=== PATIENT | female | born 1940 | race Caucasian/White ===

== ENCOUNTER 2019-04-23 15:23 | Inpatient (IN) ==
--- NOTE | 2019-04-23 15:41 | CT Scan Report ---
CT head/brain wo con CLINICAL HISTORY: 78 years-old Female with Stroke Alert. Acute strokelike symptoms TECHNIQUE: Multiple axial CT images of the head were obtained without contrast. A dose lowering tech nique was utilized adhering to the principles of ALARA. CT DOSE: 537.48 mGy.cm COMPARISON: PET CT 03/11/2019. FINDINGS: No acute intracranial hemorrhage, midline shift, intracranial mass, hydrocephalus, territorial ischem ia or abnormal extra-axial collection. Mild age-related involutional changes. Encephalomalacia of the right parietal lobe from remote infarct. Cerebral vascular calcifications are noted. Patchy white ma tter hypodensities suggest mild chronic microvascular ischemic disease. The calvarium is intact. The paranasal sinuses, mastoid air cells, and middle ear cavities are clear . IMPRESSION: No acute intracranial abnormality. ACT 112: Negative or not required by law. The above report was generated using voice recognition software. It may contain grammatical, syntax o r spelling errors. Electronically signed by: Josh Walker M.D. 04/23/2019 3:40 PM
[2019-04-23 16:06] LABS: iSTAT Hemoglobin 13.6 g/dl (12.0-16.0); iSTAT Ionized Calcium 1.12 mmol/l (1.12-1.32); iSTAT Potassium 4.5 mEq/L (3.3-5.0)
[2019-04-23] MEDS ORDERED: ASPIRIN CHEW 324 MG PO STA (16:09)
[2019-04-23 16:15] LABS: Hematocrit (blood only) 41.1 % (37-47); Hemoglobin 13.5 g/dL (12.0-16.0); Mean Corpuscular Hemoglobin 32.2 pg (25-34); Mean Corpuscular Hgb Conc 32.8 g/dL (32-36); Mean Corpuscular Volume 98.1 fL (80-100); Mean Platelet Volume 10.9 fL (7.4-10.4); Platelet Count 207 K/uL (130-400); RDW Coefficient of Variation 14.1 % (11.5-14.5); RDW Standard Deviation 50.3 fL (36.4-46.3); Red Blood Count 4.19 M/uL (4.2-5.4); White Blood Count 4.95 K/uL (4.8-10.8)
[2019-04-23 16:21] LABS: Partial Thromboplastin Ratio 0.9; Partial Thromboplastin Time 23.6 Seconds (21.0-31.0); Prothrombin Time 10.3 Seconds (9.0-12.0)
[2019-04-23 16:24] LABS: Alanine Aminotransferase 18 U/L (12-78); Albumin Level 3.2 gm/dl (3.4-5.0); BUN Creatinine Ratio 18.1 (10-20); Blood Urea Nitrogen 18 mg/dl (7-18); Calcium 8.7 mg/dl (8.5-10.1); Carbon Dioxide 32 mmol/L (21-32); Chloride 108 mmol/L (98-107); Est GFR (African American) 62.9; Est GFR (Non-African American) 54.3; Glucose 99 mg/dl (70-99); Sodium 142 mmol/L (136-145)
--- NOTE | 2019-04-23 16:35 | XRay Report ---
SINGLE VIEW CHEST CLINICAL HISTORY: Strokelike symptoms. FINDINGS: An AP, portable, upright chest radiograph is correlated with chest CT dated 02/14/2019. The examination is degraded by portable technique and patient rotation. The heart is enlarged noting ath erosclerotic calcification of the thoracic aorta. The pulmonary vasculature is noncongested. Atelecta sis is noted at the lung bases. The lungs and pleural spaces are otherwise clear. No pneumothorax is seen. The skeletal structures are osteopenic. The bony thorax is grossly intact. IMPRESSION: Cardiomegaly with no acute cardiopulmonary abnormality. ACT 112: Negative or not required by law. Electronically signed by: Sunil Guardado M.D. 04/23/2019 4:33 PM
[2019-04-23 16:37] LABS: Albumin Globulin Ratio 0.9 (0.9-2); Alkaline Phosphatase 55 U/L (45-117); Bilirubin,Total 0.5 mg/dl (0.2-1); Globulin 3.5 gm/dl (2.5-4.0); Total Protein 6.7 gm/dl (6.4-8.2)
--- NOTE | 2019-04-23 17:03 | History & Physical Report ---
Date of Service April 23, 2019 Assessment & Plan (1) TIA (transient ischemic attack): Mrs. 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 In ED stroke alert was called. Due to improvement of symptoms TPA was contraindicated. She remained hemodynamically stable and blood pressure has been well controlled. CBC, CMP, mag, PT/INR relatively unremarkable. CT head w/o acute abnormality, but did reveal right parietal encephalomalacia from remote infarct. She received ASA 325 while in ED. admit to PCU MRI brain w/o contrast obtain echocardiogram carotid Doppler b/l fasting lipid panel, a1c PT/OT/ST change ASA to 81mg daily, Add Plavix 75mg daily and Atorvastatin 40mg HS pt recently had ziopatch as outpt 02/27/19 revealed atrial tachycardia - may need prolonged event recorder to r/o afib consult neurology - discussed with Dr. Gallardo (2) Follicular lymphoma grade II: recent dx, s/p surgical resection Follows Dr. Phillips for oncology and Dr. Porter for radiation oncology Current staging work up in process, had EUS last week of pancreatic lesion plan to receive XRT to L parotid no acute issue at time (3) Atrial tachycardia: Follows Dr. Schafer cardiology Due to EKG revealing ventricular ectopic breats 10/2018 had event monitor 02/27/19 which demonstrated freq ventricular ectopy and short runs of atrial tachycardia continue metoprolol monitor on tele for any further atrial arrythmia She is scheduled for stress echo 04/26/19 (4) DVT prophylaxis: SCD/TEDS Disposition: admit to PCU, case management consulted Follow up: PCP Dr. Reza upon discharge along with appropriate neurology follow up Patient was seen and examined in collaboration with Dr. Rivera, please see addendum History of Present Illness Chief Complaint: Slurred speech and L facial droop x 30-60 min prior to arrival. Primary Care Provider: Anastasia Reza DO Mrs. 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 Daughter is at bedside. She currently lives with her daughter in [place] during the winter, but lives alone in [facility] in the summer. Somewhere between 2 and 3 PM patient developed slurred and garbled speech and left facial droop. "I thought my speech sounded funny." Daughter denies any confusion, weakness of upper or lower extremities or seizure-like activity. Patient recalls all events. Symptoms lasted between 30 to 60 minutes, prior to resolving. Daughter feels dysarthria is still mildly present. She denies any headache, lightheadedness, dizziness, change in vision, change in hearing, diplopia, chest pain, shortness breath, palpitations. She denies any recent illness. She denies fever, chills, sweats, nausea, vomiting, abdominal pain, diarrhea, change or bowel or urinary habits. Denies loss of bowel or bladder habits during event. Prior to today appetite has been normal. She does admit to approximately 30 pound weight loss over the past 6 months, intentional. She do es have remote history of CVA in 2009, "I would just called mini stroke." She states at that time she developed inability to move 3 fingers on her right hand that lasted 36 hours before resolving. Since that time she has been on ASA daily. Currently taking 325 mg also secondary to arthritis. Of significance patient with recent diagnosis of enlarging mass to her left parotid area in which she ultimately underwent surgical resection and pathology returned with low-grade follicular lymphoma. She has been following with oncologist Dr. Schaefer. She is currently undergoing staging. On imaging she was also found to have pancreatic mass and last week underwent a EUS at [facility], results pending. She has seen Dr. Porter with radiation oncology and plan is to undergo radiation to left parotid once final staging obtained. Currently she has not received any treatment. She also notes that she was to get a stress echo done this coming Monday. In ED stroke alert was called. Due to improvement of symptoms TPA was contraindicated. She remained hemodynamically stable and blood pressure has been well controlled. CBC, CMP, mag, PT/INR relatively unremarkable. She received ASA 325 while in ED. Discussed case with ED Provider Dr. Byrne. Reviewed outpt records in [facility]. Allergies Allergy/AdvReac Type Severity Reaction Status Date / Time chlorpheniramine AdvReac Mild "Antsy Verified 04/23/19 16:26 [From Chlor-Trimeton] Feeling" Home Medications Home Medications Medication Instructions Recorded Confirmed Type aspirin 325 mg PO DAILY 04/23/19 04/23/19 History calcium carbonate-vitamin D3 1 tab PO DAILY 04/23/19 04/23/19 History metoprolol succinate 25 mg PO DAILY 04/23/19 04/23/19 History multivitamin 1 tab PO DAILY 04/23/19 04/23/19 History vitamin B complex [B-Complex] 1 tab PO DAILY 04/23/19 04/23/19 History Past Med/Surg History Medical History (Updated 04/23/19 @ 17:13 by Andree Macias PA-C) Arthritis Atrial tachycardia 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 Mother , Passed age 83 of Alzheimers Disease No problems noted. Brother No problems noted. Sister ALL (acute lymphoblastic leukemia), Onset Age: 66 Now in remission Daughter No problems noted. Son No problems noted. 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 Other Information That Helps Us Care for You: No Feels Safe at Home: Yes Safety Concerns: Feels Safe At This Time Smoking Status: Never smoker Do You Dip or Chew Tobacco: No ; Second Hand Exposure: No ; Tobacco Cessation Education Requested by Patient: No Hx Alcohol Use: No Hx Substance Use: No Childhood Exposure to Second-Hand Smoke: Yes (Father Smoked in Home ) caffeine: Yes (4 cups of coffee/day ) Dental Care, Regularly: Yes Review of Systems Review of Systems: All systems reviewed & are unremarkable except as noted in HPI & below Physical Exam Physical Exam: Constitutional: WD/WN, elderly, F, appears age, vitals as above, NAD, sitting up in bed, pleasant, conversing easily Head: Normocephalic, Atraumatic Eyes: PERRL, conjunctivae normal, anicteric sclerae ENMT: external ear and nose normal, oropharynx normal Neck: trachea midline, no thyromegaly normal visual inspection Respiratory: normal respiratory effort, lungs clear to auscultation, no wheeze, rales, rhonchi. Normal insp/exp effort, no accessory muscle use Cardiovascular: RRR, with occasional ectopy noted on auscultation, 1/6 MITCH noted RUSB, trace pretibial edema Vessels: no JVD or carotid bruit Chest: normal inspection of chest Abdomen: normal bowel sounds, soft, nontender, no hepatosplenomegaly Musculoskeletal: no cyanosis or clubbing, extremities motor strength 5/5 Skin: no rashes, warm and dry normal turgor Neurologic: PERRL, EOMI, accommodation nl, no face palsy, very mild dysarthria, facial droop not present. CN's II-XI intact bilaterally and moves all extremities Psychiatric: A+Ox3, euthymic affect Lymphatic: no cervical or axillary lymphadenopathy : deferred Results & Data Vital Signs (Past 12 Hours) Vital Signs Temp Pulse Pulse Resp BP BP Pulse Ox 04/23/19 16:58 64 21 148/83 H 96 04/23/19 16:01 73 95 04/23/19 15:59 136/86 04/23/19 15:50 73 97 04/23/19 15:44 74 97 04/23/19 15:41 68 153/96 H 93 04/23/19 15:25 36.6 C 73 20 141/78 H 95 Laboratory Results Short CBC 04/23/19 Range/Units 15:46 WBC 4.95 (4.8-10.8) K/uL Hgb 13.5 (12.0-16.0) g/dL Hct 41.1 (37-47) % Plt Count 207 (130-400) K/uL BMP 04/23/19 15:46 Sodium 142 Potassium Chloride 108 H Carbon Dioxide 32 BUN 18 Creatinine 1.00 Glucose 99 Calcium 8.7 Liver Function 04/23/19 Range/Units 15:46 Total Bilirubin 0.5 (0.2-1) mg/dl AST (15-37) U/L ALT 18 (12-78) U/L Alkaline Phosphatase 55 (45-117) U/L Albumin 3.2 L (3.4-5.0) gm/dl Diagnostic Findings CXR: IMPRESSION: Cardiomegaly with no acute cardiopulmonary abnormality. Head CT: No acute intracranial hemorrhage, midline shift, intracranial mass, hydrocephalus, territorial ischemia or abnormal extra-axial collection. Mild age-related involutional changes. Encephalomalacia of the right parietal lobe from remote infarct. Cerebral vascular calcifications are noted. Patchy white matter hypodensities suggest mild chronic microvascular ischemic disease. The calvarium is intact. The paranasal sinuses, mastoid air cells, and middle ear cavities are clear. IMPRESSION: No acute intracranial abnormality. Medications Administered Discontinued Medications Aspirin (Aspirin) 324 mg PO NOW STA Stop: 04/23/19 16:10 Last Admin: 04/23/19 16:20 Dose: 324 mg Documented by: [id number] ECG Rate (beats per minute): 66 Rhythm: normal sinus Findings: + PAC Code Status & VTE Plan Code Status Full Code VTE Prophylaxis Plan VTE Prophylaxis will be ordered: Yes Supervising Physician Co-Signing Physician Notes Attending Addendum: delayed entry date of service 04/23/19 care coordinated with GLENNY Hogan please refer to her notes for full details, I agree with her notes with exceptions as noted below patient seen and examined, records reviewed by myself as well on exam, patient seen sitting up in bed, reading a book states speech has improved much since admission denies other focal neuro symptoms no chest pain, palpitaions, dizziness no other symptoms VS noted and reviewed oriented x 3, not in distress, speaks in sentences with no effort nor accessory muscle use normal rate, regular rhythm, no murmurs clear breath sounds bilaterally non distended, soft, nontender no bipedal edema, erythema, warmth mild dysarthria, no other focal neuro deficits noted Brain MRI: IMPRESSION: 1. There are small foci of restricted diffusion identified within the right posterior frontal cortex and white matter consistent with acute to subacute ischemia. 2. No additional foci of acute ischemia are identified. 3. There is no hemorrhage or mass effect. 4. Numerous chronic infarcts as above. Carotid Doppler: IMPRESSION: 1. There is no sonographic evidence of hemodynamically significant stenosis in the right or left carotid arterial system. 2. Antegrade flow is shown in the vertebral arteries. 3. There are 2 enlarged left cervical chain lymph nodes identified, likely corresponding to the patient's known history of lymphoma. ASSESSMENT AND PLAN ACUTE CVA, right posterior frontal cortex and white matter History of TIAs patient was taking aspirin 325mg po daily until 2 weeks ago when it was held due to procedures for lymphoma echo ordered either restart aspirin 325mg po daily or reduce to 81mg daily and add Plavix Neurologist consulted Speech therapy consulted- Dysphagia reported by RN History of Atrial Tacychardia continue Metoprolol may need Zio patch monitoring to r/o underlying a fib other diagnoses and plan of care as per [] Dima Rivera MD (1) Follicular lymphoma grade II Lymphoma site: neck Qualified Code(s): C82.11 - Follicular lymphoma grade II, lymph nodes of head, face, and neck
[2019-04-23 17:12] LABS: Potassium 3.9 mmol/L (3.5-5.1)
[2019-04-23 17:17] LABS: Magnesium 2.7 mg/dl (1.8-2.4)
--- NOTE | 2019-04-23 18:19 | Magnetic Resonance Report ---
MRI OF THE BRAIN WITHOUT IV CONTRAST CLINICAL HISTORY: Transient ischemic attack. Slurred speech. COMPARISON STUDY: CT of the brain dated 04/23/2019. TECHNIQUE: MRI of the brain was performed utilizing various T1 and T2-weighted sequences in the axial , sagittal, and coronal planes. IV contrast was not administered for this examination. FINDINGS: Brain parenchyma: There is age-related involutional change noting mild to moderate patchy subcortical and periventricular microangiopathic disease. There are small foci of restricted diffusion identifie d within the right frontal white matter, as well as punctate foci of white matter in the posterior ri ght frontal cortex consistent acute to subacute ischemia. No additional foci of restricted diffusion are identified. Foci of bilateral parietal and right occipital encephalomalacia are consistent with r emote infarcts. Chronic lacunar infarcts identified throughout both cerebellar hemispheres. There is no hemorrhage or mass effect. No extra-axial fluid collection is seen. The cerebellar tonsils are nor mal in configuration. Ventricles, sulci, and cisterns: Prominent secondary to involutional change. Pituitary and sella: Unremarkable. Intracranial vasculature: Normal flow voids are maintained at the skull base. Orbits: The bony orbits are grossly intact. Orbital contents are normal in appearance. Sinuses and mastoids: Clear. Calvarium: Unremarkable. Cervical cord: Partially visualized cervical spinal cord is normal in morphology and signal intensity . IMPRESSION: 1. There are small foci of restricted diffusion identified within the right posterior frontal cortex and white matter consistent with acute to subacute ischemia. 2. No additional foci of acute ischemia are identified. 3. There is no hemorrhage or mass effect. 4. Numerous chronic infarcts as above. ACT 112: Positive. There are findings on this exam that require communication between the performing entity and the patient following Patient Test Result Information Act ([place] Act 112) guidelines. Electronically signed by: Sunil Guardado M.D. 04/23/2019 6:18 PM
--- NOTE | 2019-04-23 18:29 | Emergency Department Note ---
Entered by Sandra Lara acting as a scribe for History of Present Illness General Chief complaint: Stroke/CVA Symptoms Stated complaint: POSSIBLE STROKE, SIDE OF FACE DROOPY, CONFUSION Time Seen by Provider: 04/23/19 15:33 Source: patient and family Limitations: no limitations History of Present Illness Provider complaint: Stroke symptoms Onset (ago): hour(s) 1 Location: face Pain Consistency: + other ( episode ) Quality: + constant Associated symptoms: + other (Positive: right facial droop, slurred speech ) The patient is a 78 year old female with past medical history of TIA, arthritis, osteoporosis, who presents to the ED with complaints of an episode of stroke symptoms that started an hour ago. The patient reports her daughter brought her to the ED because she was concerned about her speech. The daughter notes the patients speech was slurred and had right facial droop. The patient states she history of TIA where it affected her speech and right arm. She denies being on blood thinners. . Home Medications Home Medications Medication Instructions Recorded Confirmed Type aspirin 325 mg PO DAILY 04/23/19 04/23/19 History calcium carbonate-vitamin D3 1 tab PO DAILY 04/23/19 04/23/19 History metoprolol succinate 25 mg PO DAILY 04/23/19 04/23/19 History multivitamin 1 tab PO DAILY 04/23/19 04/23/19 History vitamin B complex [B-Complex] 1 tab PO DAILY 04/23/19 04/23/19 History Allergies Allergy/AdvReac Type Severity Reaction Status Date / Time chlorpheniramine AdvReac Mild "Antsy Verified 04/23/19 16:26 [From Chlor-Trimeton] Feeling" Past Med/Surg History Medical History (Updated 04/23/19 @ 17:13 by Andree Macias PA-C) Arthritis Atrial tachycardia 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 Mother , Passed age 83 of Alzheimers Disease No problems noted. Brother No problems noted. Sister ALL (acute lymphoblastic leukemia), Onset Age: 66 Now in remission Daughter No problems noted. Son No problems noted. 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 and A total of 10 systems reviewed and were otherwise negative Physical Exam Vital Signs Vital Signs - 24 hr 04/23/19 15:25 04/23/19 15:41 04/23/19 15:44 Temperature 36.6 C Temperature Source Oral Pulse Rate 73 68 74 Pulse Rate from SpO2 Sensor 72 74 Respiratory Rate 20 Blood Pressure 141/78 H 153/96 H Blood Pressure Mean 99 114 Blood Pressure Position Sitting Pulse Oximetry 95 93 97 Oxygen Delivery Method Room Air Room Air Sepsis Recent Fever Within 48 Hours No Sepsis New/Unexplained Change in Mental Status No Sepsis Action Taken by Nursing No Action Required 04/23/19 15:48 04/23/19 15:50 04/23/19 15:59 Temperature Temperature Source Pulse Rate 73 Pulse Rate from SpO2 Sensor 76 Respiratory Rate Blood Pressure 136/86 Blood Pressure Mean 91 Blood Pressure Position Pulse Oximetry 97 Oxygen Delivery Method Room Air Room Air Room Air Sepsis Recent Fever Within 48 Hours Sepsis New/Unexplained Change in Mental Status Sepsis Action Taken by Nursing 04/23/19 16:01 Temperature Temperature Source Pulse Rate 73 Pulse Rate from SpO2 Sensor 74 Respiratory Rate Blood Pressure Blood Pressure Mean Blood Pressure Position Pulse Oximetry 95 Oxygen Delivery Method Room Air Sepsis Recent Fever Within 48 Hours Sepsis New/Unexplained Change in Mental Status Sepsis Action Taken by Nursing General: Non-ill appearing older female in no acute distress. HEENT: Normal cephalic atraumatic. Pupils are equal round and reactive to light. Extraocular movements are intact. Oropharynx is pink with moist mucous membranes. No swelling of the mouth lips or tongue. Neck: Supple with a midline trachea. No meningeal signs or stiffness, no JVD or bruits. No Stridor. Chest: Clear to auscultation bilaterally. No wheezes or rhonchi. No increased work of breathing. Heart: regular rate and rhythm. Abdomen: Soft nontender, nondistended without rebound guarding or rigidity. Extremities: No cyanosis clubbing or edema. No calf tenderness or asymmetry Spine/Back. Non tender to palpation. No CVA tenderness Skin: Good turgor without rashes. Neurologic exam: Cranial nerves two through 12 are intact. Motor and sensation are intact and symmetrical throughout. Alert and orient x 3. Speech has very slight dysarthria but no trouble naming objects. Course Course 1537: The patient was evaluated in room A1. A complete history and physical exam was performed. 1540: I spoke with the telestroke neurologist regarding the patient's case. 1606: I discussed the patients case with [facility]. He recommended a full stroke workup and would like the patient to be admitted and observed. 1614: I discussed the patients case with Rebecca Mcintyre PA-C. The [facility] be [facility] Consultations Consultation #1: I discussed the patients case with Mer[facility]. He recommended a full stroke workup and would like the patient to be admitted and observed. Time: 16:06 Consultation #2: I discussed the patients case with Rebecca Mcintyre PA-C. The patient will be evaluated for [facility] management [facility] Time: 16:14 Administered Medications Discontinued Medications Aspirin (Aspirin) 324 mg PO NOW STA Stop: 04/23/19 16:10 Last Admin: 04/23/19 16:20 Dose: 324 mg Documented by: [id number] Medical Decision Making Differential Diagnosis Differential Diagnosis: Stroke, TIA, intracranial process, electrolyte or metabolic abnormality, cardiac disease Medical Records Attestation: I reviewed the patient's medical records. Home Medications Current Medication List: was personally reviewed by me Laboratory Data Attestation: I reviewed the patient's lab results. Result diagrams: 04/23/19 15:46 04/23/19 16:39 Lab Results 04/23/19 04/23/19 04/23/19 Range/Units 15:42 15:46 15:46 WBC 4.95 (4.8-10.8) K/uL RBC 4.19 L (4.2-5.4) M/uL Hgb 13.5 (12.0-16.0) g/dL POC Hgb (12.0-16.0) g/dl Hct 41.1 (37-47) % POC Hct (37-47) % MCV 98.1 (80-100) fL MCH 32.2 (25-34) pg MCHC 32.8 (32-36) g/dL RDW Std Deviation 50.3 H (36.4-46.3) fL RDW Coeff of Pablo 14.1 (11.5-14.5) % Plt Count 207 (130-400) K/uL MPV 10.9 H (7.4-10.4) fL PT 10.3 (9.0-12.0) Seconds INR 1.0 (0.9-1.1) APTT 23.6 (21.0-31.0) Seconds PTT Ratio 0.9 POC Sodium (135-144) mEq/L Sodium (136-145) mmol/L POC Potassium (3.3-5.0) mEq/L Potassium (3.5-5.1) mmol/L POC Chloride (101-112) mEq/L Chloride (98-107) mmol/L Carbon Dioxide (21-32) mmol/L POC Total CO2 (24-31) mEq/l Anion Gap (3-11) POC Anion Gap (16-25) mmol/L POC BUN (7-18) mg/dl BUN (7-18) mg/dl Creatinine (0.6-1.2) mg/dl POC Creatinine (0.6-1.3) mg/dl Est Cr Clr Drug Dosing Est GFR ( Amer) Est GFR (Non-Af Amer) BUN/Creatinine Ratio (10-20) Glucose (70-99) mg/dl POC Glucose 101 H (70-99) POC Glucose (other) (70-99) mg/dl Calcium (8.5-10.1) mg/dl POC Ioniz Calcium Chiquis (1.12-1.32) mmol/l Magnesium (1.8-2.4) mg/dl Total Bilirubin (0.2-1) mg/dl AST (15-37) U/L ALT (12-78) U/L Alkaline Phosphatase (45-117) U/L Total Protein (6.4-8.2) gm/dl Albumin (3.4-5.0) gm/dl Globulin (2.5-4.0) gm/dl Albumin/Globulin Ratio (0.9-2) 04/23/19 04/23/19 04/23/19 Range/Units 15:46 15:50 16:39 WBC (4.8-10.8) K/uL RBC (4.2-5.4) M/uL Hgb (12.0-16.0) g/dL POC Hgb 13.6 (12.0-16.0) g/dl Hct (37-47) % POC Hct 40 (37-47) % MCV (80-100) fL MCH (25-34) pg MCHC (32-36) g/dL RDW Std Deviation (36.4-46.3) fL RDW Coeff of Pablo (11.5-14.5) % Plt Count (130-400) K/uL MPV (7.4-10.4) fL PT (9.0-12.0) Seconds INR (0.9-1.1) APTT (21.0-31.0) Seconds PTT Ratio POC Sodium 141 (135-144) mEq/L Sodium 142 (136-145) mmol/L POC Potassium 4.5 (3.3-5.0) mEq/L Potassium 3.9 (3.5-5.1) mmol/L POC Chloride 104 (101-112) mEq/L Chloride 108 H (98-107) mmol/L Carbon Dioxide 32 (21-32) mmol/L POC Total CO2 33 H (24-31) mEq/l Anion Gap 2.0 L (3-11) POC Anion Gap 9.0 L (16-25) mmol/L POC BUN 22 H (7-18) mg/dl BUN 18 (7-18) mg/dl Creatinine 1.00 (0.6-1.2) mg/dl POC Creatinine 1.0 (0.6-1.3) mg/dl Est Cr Clr Drug Dosing Not Reportable Est GFR ( Amer) 62.9 Est GFR (Non-Af Amer) 54.3 BUN/Creatinine Ratio 18.1 (10-20) Glucose 99 (70-99) mg/dl POC Glucose (70-99) POC Glucose (other) 102 H (70-99) mg/dl Calcium 8.7 (8.5-10.1) mg/dl POC Ioniz Calcium Chiquis 1.12 (1.12-1.32) mmol/l Magnesium 2.7 H (1.8-2.4) mg/dl Total Bilirubin 0.5 (0.2-1) mg/dl AST 22 (15-37) U/L ALT 18 (12-78) U/L Alkaline Phosphatase 55 (45-117) U/L Total Protein 6.7 (6.4-8.2) gm/dl Albumin 3.2 L (3.4-5.0) gm/dl Globulin 3.5 (2.5-4.0) gm/dl Albumin/Globulin Ratio 0.9 (0.9-2) Imaging Data Radiologist's Impression: Radiology results as stated below per my review and the radiologist's interpretation: CT head/brain wo con CLINICAL HISTORY: 78 years-old Female with Stroke Alert. Acute strokelike symptoms TECHNIQUE: Multiple axial CT images of the head were obtained without contrast. A dose lowering technique was utilized adhering to the principles of ALARA. CT DOSE: 537.48 mGy.cm COMPARISON: PET CT 03/11/2019. FINDINGS: No acute intracranial hemorrhage, midline shift, intracranial mass, hyd rocephalus, territorial ischemia or abnormal extra-axial collection. Mild age- related involutional changes. Encephalomalacia of the right parietal lobe from remote infarct. Cerebral vascular calcifications are noted. Patchy white matter hypodensities suggest mild chronic microvascular ischemic disease. The calvarium is intact. The paranasal sinuses, mastoid air cells, and middle ear cavities are clear. IMPRESSION: No acute intracranial abnormality. ACT 112: Negative or not required by law. The above report was generated using voice recognition software. It may contain grammatical, syntax or spelling errors. Electronically signed by: Josh Walker M.D. 04/23/2019 3:40 PM SINGLE VIEW CHEST CLINICAL HISTORY: Strokelike symptoms. FINDINGS: An AP, portable, upright chest radiograph is correlated with chest CT dated 02/14/2019. The examination is degraded by portable technique and patient rotation. The heart is enlarged noting atherosclerotic calcification of the thoracic aorta. The pulmonary vasculature is noncongested. Atelectasis is noted at the lung bases. The lungs and pleural spaces are otherwise clear. No pneumothorax is seen. The skeletal structures are osteopenic. The bony thorax is grossly intact. IMPRESSION: Cardiomegaly with no acute cardiopulmonary abnormality. ACT 112: Negative or not required by law. Electronically signed by: Sunil Guardado M.D. 04/23/2019 4:33 PM ECG Data Attestation: I personally reviewed and interpreted this ECG as follows: Indication: + chest pain Rate (beats per minute): 66 Rhythm: + normal sinus ECG ST segments: no ST depression and no ST elevation ECG Findings: + PACs (Occasional) Blood Pressure Blood Pressure Findings: Elevated blood pressure Blood Pressure Disposition: elevated BP felt to be situational MDM Narrative This patient comes in as described above. She was placed in room A1. She came in after having slurred speech and facial droop on the right. This happened about an hour prior to arrival. She has a history of TIAs in the past. She is supposed to be on aspirin but had been holding it recently for procedure the nurse are in triage and based on her symptoms called a stroke alert the patient went straight to CAT scan I saw her when she came in room A1. I did talk promptly to the stroke neurologist. By the time I saw her, her symptoms had significantly improved and she no longer had a facial droop and she had said improved speech. she was able to name objects and had a normal neurologic exam otherwise with exception of may be some very mild dysarthria. Daughter thought she was significantly improved. She was evaluated by the stroke neurologist who felt that she did not need TPA given on improvement of symptoms and her mild symptoms at this point I agree. CAT scan of her head initially was negative. EKG does not suggest acute coronary syndrome or arrhythmia. She has no acute electrolyte or metabolic abnormality. She was given aspirin 324 mg p.o. She will be admitted for further stroke/neurologic work-up and further treatment evaluation I have consulted the [facility] Hospitalist see in the ER for these measures. Impression & Plan TIA (transient ischemic attack), Slurred speech, Weakness on right side of face, Lymphoma Discharge Plan Visit Data *Final* Discharge Date/Time: 04/23/19 17:13 Chief Complaint: Stroke/CVA Symptoms Stated Complaint: POSSIBLE STROKE, SIDE OF FACE DROOPY, CONFUSION ED Provider: Myron Byrne Discharge Problem: TIA (transient ischemic attack), Slurred speech, Weakness on right side of face, Lymphoma Patient Disposition: Admitted As Inpatient Discharge Instructions Interventions: ED Discharge Assessment Last Done: 04/23/19 17:13 Discharge Problem: Lymphoma Qualifiers: Lymphoma type: unspecified type Lymphoma site: unspecified region Qualified Code(s): C85.90 - Non-Hodgkin lymphoma, unspecified, unspecified site The scribe's documentation has been prepared under my direction and personally reviewed by me in its entirety. I confirm that the note above accurately reflects all work, treatment, procedures, and medical decision making performed by me.
--- NOTE | 2019-04-23 18:43 | Ultrasound Report ---
ULTRASOUND OF THE CAROTID ARTERIES CLINICAL HISTORY: Stroke. History of lymphoma. COMPARISON STUDY: No priors PET/CT dated 03/11/2019. TECHNIQUE: Real-time, grayscale, and color Doppler sonography of the carotid arteries is performed. I mages are reviewed in the transverse and longitudinal planes. FINDINGS: Blood pressure in the right arm measures 164/92 and blood pressure in the left arm measures 145/73. The carotid arteries are patent bilaterally and demonstrate antegrade flow. There is mild atheroscler otic plaque seen in the left carotid bulb. Normal doppler arterial waveforms are seen throughout. Aroldo ocity measurements are listed below. Common carotid peak systolic velocity (cm/sec): RIGHT: 61 LEFT: 62 ICA proximal peak systolic velocity (cm/sec): RIGHT: 47 LEFT: 51 ICA mid peak systolic velocity (cm/sec): RIGHT: 52 LEFT: 64 ICA distal peak systolic velocity (cm/sec): RIGHT: 104 LEFT: 46 ICA/CC peak systolic ratio: RIGHT: 0.9 LEFT: 1.0 Antegrade flow was shown in the vertebral arteries. The external carotid arteries are patent. There are 2 enlarged left cervical lymph nodes identified. The largest measures up to 1.8 cm. IMPRESSION: 1. There is no sonographic evidence of hemodynamically significant stenosis in the right or left sofia tid arterial system. 2. Antegrade flow is shown in the vertebral arteries. 3. There are 2 enlarged left cervical chain lymph nodes identified, likely corresponding to the patie nt's known history of lymphoma. ACT 112: Negative or not required by law. Electronically signed by: Sunil Guardado M.D. 04/23/2019 6:42 PM
[2019-04-23] MEDS ORDERED: ONDANSETRON INJ 2 MG/ML 2 ML VIAL IV PRN (19:10)
[2019-04-23] MEDS ORDERED: ACETAMINOPHEN 325 MG TAB PO PRN (19:10)
[2019-04-23] MEDS ORDERED: PHARMACIST DISCHARGE MED REC CONSULT PRN (19:10)
[2019-04-23] MEDS ORDERED: MAGNESIUM HYDROXIDE SUSP 30 ML UDC PO PRN (19:10)
[2019-04-23] MEDS ORDERED: ALUMINUM/MAGNESIUM SUSP 30 ML UDC PO PRN (19:10)
[2019-04-23] MEDS ORDERED: POLYETHYLENE (MIRALAX) 17 GM PACK PO PRN (19:10)
[2019-04-23] MEDS ORDERED: D5W AND NSS 1,000 ML IV SCH (20:00)
[2019-04-23] MEDS: ATORVASTATIN 40 MG TAB PO SCH (22:23)
[2019-04-23] MEDS: CLOPIDOGREL BISULFATE 75 MG TAB PO SCH (22:23)
[2019-04-24 07:52] LABS: Estimated Average Glucose 117 mg/dl; Hemoglobin A1C 5.7 % (4.5-5.6)
[2019-04-24 08:17] LABS: BUN Creatinine Ratio 18.6 (10-20); Calcium 8.4 mg/dl (8.5-10.1); Creatinine Clr Calc Pharmacy 56.8 ml/min
[2019-04-24 08:19] LABS: Basophils # (auto) 0.01 K/uL (0-0.2); Basophils % (auto) 0.3 %; Eosinophils # (auto) 0.13 K/uL (0-0.5); Eosinophils % (auto) 3.7 %; Hematocrit (blood only) 38.3 % (37-47); Hemoglobin 12.6 g/dL (12.0-16.0); Immature Granulocytes # (auto) 0.01 K/uL (0.00-0.02); Immature Granulocytes % (auto) 0.3 %; Lymphocytes % (auto) 22.9 %; Mean Corpuscular Hemoglobin 31.7 pg (25-34); Mean Corpuscular Volume 96.5 fL (80-100); Monocytes # (auto) 0.51 K/uL (0.11-0.59); Monocytes % (auto) 14.6 %; Neutrophils # (auto) 2.04 K/uL (1.4-6.5); Neutrophils % (auto) 58.2 %; Platelet Count 164 K/uL (130-400); RDW Coefficient of Variation 14.2 % (11.5-14.5); RDW Standard Deviation 50.8 fL (36.4-46.3); Red Blood Count 3.97 M/uL (4.2-5.4)
[2019-04-24 08:20] LABS: Mean Corpuscular Hgb Conc 32.9 g/dL (32-36)
[2019-04-24] MEDS: MULTIVITAMIN TAB PO SCH (08:41)
[2019-04-24] MEDS: CALCIUM 600MG + VIT D 400 IU TAB PO SCH (08:42)
[2019-04-24] MEDS: METOPROLOL SUCC 25MG EXT REL TAB PO SCH (08:42)
[2019-04-24] MEDS: CLOPIDOGREL BISULFATE 75 MG TAB PO SCH (08:42)
[2019-04-24] MEDS: ATORVASTATIN 40 MG TAB PO SCH (08:42)
[2019-04-24] MEDS: VITAMIN B COMPLEX TAB PO SCH (08:42)
[2019-04-24] MEDS: ASPIRIN 81 MG ECTAB PO SCH (08:42)
--- NOTE | 2019-04-24 10:14 | Hospitalist Progress Note ---
Date of Service April 24, 2019 Assessment & Plan (1) TIA (transient ischemic attack): Mrs. 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 Her symptoms improved and she did not receive TPA . CT head w/o acute abnormality, but did reveal right parietal encephalomalacia from remote infarct. She received ASA 325 while in ED Has been getting aspirin 81 mg daily and Plavix was added MRI brain w/o contrast showed:There are small foci of restricted diffusion identified within the right posterior frontal cortex and white matter consistent with acute to subacute ischemia. Echocardiogram: Sinus bradycardia with normal LV size, moderate concentric LV hypertrophy, mild global hypokinesia with EF of 40 to 45%, grade 1 diastolic dysfunction, no regional wall motion abnormalities, atrial septal aneurysm incidentally noted, with a small,hemodynamically insignificant shunt there is no significant valvular disease Carotid Doppler b/l : No significant stenosis noted Fasting lipid panel-noted: Hemoglobin A1c-5.7 PT/OT/ST Has been on ASA 81mg daily, Plavix 75mg daily and Atorvastatin 40mg HS pt recently had ziopatch as outpt 02/27/19 revealed atrial tachycardia - may need prolonged event recorder to r/o afib Clinically asymptomatic and without any neurological symptoms noted Await neurology evaluation and further recommendation (2) Follicular lymphoma grade II: recent dx, s/p surgical resection Follows Dr. Phillips for oncology and Dr. Porter for radiation oncology Current staging work up in process, had EUS last week of pancreatic lesion plan to receive XRT to L parotid no acute issue at time (3) Atrial tachycardia: Follows Dr. Schafer cardiology Due to EKG revealing ventricular ectopic breats 10/2018 had event monitor 02/27/19 which demonstrated freq ventricular ectopy and short runs of atrial tachycardia continue metoprolol monitor on tele for any further atrial arrythmia She is scheduled for stress echo 04/26/19 (4) DVT prophylaxis: SCD/TEDS Increase ambulation Disposition: admit to PCU, case management consulted Follow up: PCP Dr. Reza upon discharge along with appropriate neurology follow up Patient was seen and examined in collaboration with Dr. 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 Her symptoms resolved as of this morning and she did not require any TPA at presentation She passed a bedside swallowing evaluation has restarted on a diet She denies any symptoms Review of Systems Review of Systems: All systems reviewed and are unremarkable except as noted below Neurologic: no unsteadiness, no localized weakness, no generalized weakness, no paralysis, no loss of sensation, no numbness, no paresthesia and no abnormal speech Physical Exam Physical Exam: Lying in bed comfortably Constitutional: well developed and well nourished; no acute distress Eyes: PERRL, conjunctivae normal, anicteric sclerae ENMT: external ear and nose normal, oropharynx normal Neck: trachea midline, no thyromegaly Respiratory: normal respiratory effort; no respiratory distress Auscultation: lungs clear to auscultation bilaterally Cardiovascular: Rate/Rhythm: regular rhythm Heart Sounds: no murmur Gastrointestinal (Abdomen): Inspection/Auscultation: abdomen normal to inspection and normal bowel sounds Musculoskeletal: Extremities: strength 5/5 throughout Neurologic: moves all extremities; no focal motor deficits Speech / Cognition: normal speech Alert, awake and oriented x3 Results & Data Vital Signs (Past 12 Hours) Vital Signs Temp Pulse Pulse Resp BP Pulse Ox 04/24/19 08:00 55 L 04/24/19 07:29 36.5 C 58 L 19 149/85 H 94 04/24/19 03:19 36.5 C 56 L 18 161/90 H 95 04/23/19 23:22 36.9 C 58 L 22 150/75 H 94 04/23/19 23:20 62 Laboratory Results Short CBC 04/23/19 04/24/19 04/24/19 Range/Units 15:46 07:09 08:12 WBC 4.95 3.50 L (4.8-10.8) K/uL Hgb 13.5 12.6 (12.0-16.0) g/dL Hct 41.1 38.3 (37-47) % Plt Count 207 164 (130-400) K/uL BMP 04/23/19 04/23/19 04/24/19 15:46 16:39 07:09 Sodium 142 142 Potassium 3.9 Chloride 108 H 110 H Carbon Dioxide 32 29 BUN 18 15 Creatinine 1.00 0.82 Glucose 99 101 H Calcium 8.7 8.4 L 04/24/19 08:17 Sodium Potassium 4.1 Chloride Carbon Dioxide BUN Creatinine Glucose Calcium Liver Function 04/23/19 04/23/19 Range/Units 15:46 16:39 Total Bilirubin 0.5 (0.2-1) mg/dl AST 22 (15-37) U/L ALT 18 (12-78) U/L Alkaline Phosphatase 55 (45-117) U/L Albumin 3.2 L (3.4-5.0) gm/dl Medications Administered Current Inpatient Medications Acetaminophen (Tylenol) 650 mg PO Q4H PRN PRN Reason: Pain or Fever Stop: 05/23/19 19:09 Al Hydrox/Mg Hydrox/Simethicone (Maalox) 15 ml PO Q4H PRN PRN Reason: Dyspepsia Stop: 05/23/19 19:09 Aspirin (Ecotrin Ectab) 81 mg PO DAILY [facility] Stop: 05/24/19 08:59 Last Admin: 04/24/19 08:42 Dose: 81 mg Documented by: Atorvastatin Calcium (Lipitor) 40 mg PO QAM [facility] Stop: 05/23/19 20:59 Last Admin: 04/24/19 08:42 Dose: 40 mg Documented by: Clopidogrel Bisulfate (Plavix) [facility] Stop: 05/23/19 19:29 Last Admin: 04/24/19 08:42 Dose: 75 mg Documented by: Magnesium Hydroxide (Milk Of Magnesia) 30 ml PO Q12H PRN PRN Reason: Constipation Stop: 05/23/19 19:09 Metoprolol Succinate (Toprol Xl) 25 mg PO DAILY [facility] Stop: 05/24/19 08:59 Last Admin: 04/24/19 08:42 Dose: 25 mg Documented by: Miscellaneous Information (Pharmacist Discharge Med Rec Consult) 1 ea N/A UD PRN PRN Reason: Consult Stop: 05/23/19 19:09 Multivitamins (Multivitamin Tab) 1 tab PO DAILY [facility] Stop: 05/24/19 08:59 Last Admin: 04/24/19 08:41 Dose: 1 tab Documented by: Multivitamins/Minerals (Caltrate Plus) 1 tab PO DAILY REKHA Stop: 05/24/19 08:59 Last Admin: 04/24/19 08:42 Dose: 1 tab Documented by: Ondansetron HCl (Zofran) 4 mg IV Q6H PRN PRN Reason: Nausea Stop: 05/23/19 19:09 Polyethylene Glycol (Miralax Powder Packet) 17 gm PO DAILY PRN PRN Reason: Constipation Stop: 05/23/19 19:09 Vitamin B Complex (Vitamin B Complex) 1 tab PO DAILY REKHA Stop: 05/24/19 08:59 Last Admin: 04/24/19 08:42 Dose: 1 tab Documented by: (1) Follicular lymphoma grade II Lymphoma site: neck Qualified Code(s): C82.11 - Follicular lymphoma grade II, lymph nodes of head, face, and neck
--- NOTE | 2019-04-24 14:34 | Consultation Report ---
DATE OF CONSULTATION: 04/24/2019 REASON FOR CONSULTATION: Stroke. HISTORY OF PRESENT ILLNESS: Mrs. Perez is a 78-year-old right-handed female with a history of a remote stroke in 2009, who presented with a sudden onset of slurred speech and left facial droop lasting about an hour. This was not accompanied by any change in vision, there was no facial anesthesia. No numbness or weakness in the extremities. She may have been mildly off balance, but indicates that has been the case since she had parotid gland surgery over a month ago. No accompanying headache. There was no chest pain, palpitations or shortness of breath. She has voluntarily lost 30 pounds over the last 1 year. 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 She has not yet received any chemo or radiation. She had an ERCP recently for a pancreatic mass and is awaiting the pathology. She has been off aspirin for the last 2 weeks in anticipation and post that procedure. A stroke alert was called. Needless to say because of improvement of symptoms, tPA was contraindicated, probably the ERCP with biopsy would have been a contraindication as well. Since admission, she has been placed on aspirin, Plavix and Lipitor. Her MRI of the brain noncontrast shows a small focus of restricted diffusion in the right posterior frontal cortex and white matter consistent with subacute to acute ischemia, numerous chronic infarcts. Carotid ultrasound; no significant stenosis. Two enlarged left cervical chain lymph nodes identified, likely corresponding to the patient's known history of lymphoma. Echocardiogram summary; sinus bradycardia, moderate LVH, concentric mild global hypokinesis of the left ventricle, EF 40%-45%, atrial septal aneurysm noted with small hemodynamically insignificant shunt, no significant valvular heart disease. The patient recently had a registered respiratory technician, which demonstrated frequent ventricular ectopy and short runs of atrial tachycardia for which metoprolol was continued. Labs notable for a white count of 3.5, RBC 3.97, H and H of 12.6/38.3, platelet count 164. PT, PTT normal. Chemistry profile notable for chloride of 110, glucose of 101. Hemoglobin A1c of 5.7. LDL of 87. No family history of stroke PHYSICAL EXAMINATION: VITAL SIGNS: 146/84, 67, 18, 36.4, 96%. The patient is awake, alert, oriented x3. Normal speech and language. Naming, repetitions, 3-step commands are normal. No right/left confusion is noted. There are no carotid bruits. No heart murmurs. Heart is regular rate and rhythm. No temporal artery tenderness. Neck is supple. Pupils are equal. I had difficulty visualizing the optic nerves. There are normal visual spain, motility, facial sensation and facial symmetry. Speech and language are normal. Motor 5/5, no drift. Normal rapid alternating movements. Intact light touch bilaterally. [id number] and feyr-er-uvus are normal. Reflexes are symmetric. Toes are downgoing. Her gait is unremarkable for age. IMPRESSION: Right frontoparietal cortical infarct. This localization could be embolic. PLAN: 1. MRI of the brain with contrast due to her history of lymphoma. 2. Venous Doppler of the lower extremities due to a recent prolonged car ride and right to left shunt, doubt this is etiologic. 3. The patient had been off aspirin for 2 weeks prior to this transient ischemic attack. At present, would use Plavix and aspirin together for 3 weeks and then discontinue Plavix. Agree with statin use. 4. Recommend cardiology consult regarding whether or not they think the presence of atrial tachycardia is enough empiric evidence to suggest the patient has atrial fibrillation andif they would recommend anticoagulants and/or recommend the duration of subsequent monitoring. The patient is also scheduled for an exercise stress test on Monday. I assume this should be canceled, would like cardiology to weigh in in that regard. May want to consider consultation with oncology whether or not they think a hypercoagulable state is present and how they would further treat. I believe the patient needs to be at least monitored overnight for cardiac monitoring. We will follow with you. DELFINO
[2019-04-24] MEDS ORDERED: LORazepam 0.5 MG/1 ML VIAL IV STA (23:12)
[2019-04-25] MEDS ORDERED: GADOBUTROL 65ML VIAL IV PRN (01:01)
[2019-04-25 06:01] LABS: Basophils # (auto) 0.02 K/uL (0-0.2); Basophils % (auto) 0.4 %; Eosinophils # (auto) 0.32 K/uL (0-0.5); Eosinophils % (auto) 6.2 %; Hematocrit (blood only) 40.5 % (37-47); Hemoglobin 13.1 g/dL (12.0-16.0); Lymphocytes # (auto) 1.28 K/uL (1.2-3.4); Lymphocytes % (auto) 24.9 %; Mean Corpuscular Hemoglobin 31.8 pg (25-34); Mean Corpuscular Hgb Conc 32.3 g/dL (32-36); Mean Corpuscular Volume 98.3 fL (80-100); Mean Platelet Volume 10.8 fL (7.4-10.4); Monocytes # (auto) 0.53 K/uL (0.11-0.59); Monocytes % (auto) 10.3 %; Neutrophils % (auto) 58.2 %; Platelet Count 172 K/uL (130-400); RDW Coefficient of Variation 14.3 % (11.5-14.5); RDW Standard Deviation 51.8 fL (36.4-46.3); Red Blood Count 4.12 M/uL (4.2-5.4); White Blood Count 5.15 K/uL (4.8-10.8)
[2019-04-25 06:23] LABS: BUN Creatinine Ratio 17.3 (10-20); Calcium 8.9 mg/dl (8.5-10.1); Creatinine Clr Calc Pharmacy 53.6 ml/min; Est GFR (African American) 74.5; Est GFR (Non-African American) 64.3; Magnesium 2.3 mg/dl (1.8-2.4); Potassium 4.1 mmol/L (3.5-5.1)
--- NOTE | 2019-04-25 06:37 | Ultrasound Report ---
US venous doppler LE BILATERAL CLINICAL HISTORY: Stroke. Patent foramen ovale. Recent car ride. Possible DVT. COMPARISON STUDY: No previous studies for comparison. FINDINGS: Real-time and color flow Doppler imaging were performed. Flow was seen within the femoral, popliteal and calf veins with no intraluminal thrombus demonstrated. The saphenous vein is patent. IMPRESSION: No evidence of lower extremity DVT. ACT 112: Negative or not required by law. Electronically signed by: Ej Frias M.D. 04/25/2019 6:36 AM
--- NOTE | 2019-04-25 07:00 | Magnetic Resonance Report ---
MR brain wo/w con HISTORY: 78 years-old Female contrast only if poss. Pt with stroke and lymphoma acute strokelike sym ptoms COMPARISON: Brain MRI 04/23/2019 TECHNIQUE: Multiplanar multisequence MRI of the brain was obtained both with and without the use of 8 .1 mL Gadavist FINDINGS: Again noted are a few punctate subcentimeter foci of restricted diffusion within the posterior right frontal lobe cortex with previously noted 9 mm focus within the centrum semiovale not identified. The se foci demonstrate intermediate to slightly decreased signal on the ADC map suggestive of acute to s ubacute infarctions. There is no acute territorial ischemia identified. Midline structures including the corpus callosum, brainstem, optic chiasm, pituitary and pineal glands are unremarkable. Study is mildly motion degraded. Degenerative changes are noted about the imaged cervical spine. Mild age-related involutional changes. Moderate T2/FLAIR hyperintensities throughout the white matter suggest chronic microvascular ischemic disease. Encephalomalacia and gliosis of the bilateral pariet al lobes and right occipital lobe compatible with areas of remote infarct. There is no acute intracra nial hemorrhage, midline shift, abnormal extra axial collection, hydrocephalus or intracranial mass i dentified. Multiple remote lacunar infarctions are noted within the bilateral cerebellar hemispheres. There is no abnormal intra-axial or extra-axial enhancement identified. Major flow voids at the level of the skull base appear patent. Mastoid air cells are clear. Mild left jeffers bowing and spurring of the nasal septum. Mild mucosal thickening of the nasal turbinates and eth moid air cells. The skull, orbits and soft tissues are unremarkable. IMPRESSION: 1. Several punctate foci of restricted diffusion involving the posterior right frontal lobe cortex ar e redemonstrated suggestive of acute or subacute infarcts. 2. Age-related involutional changes with moderate chronic microvascular ischemic disease. 3. Multiple areas of remote infarct are redemonstrated. 4. No abnormal enhancement. ACT 112: Negative or not required by law. The above report was generated using voice recognition software. It may contain grammatical, syntax o r spelling errors. Electronically signed by: Josh Walker M.D. 04/25/2019 6:59 AM
[2019-04-25] MEDS: CLOPIDOGREL BISULFATE 75 MG TAB PO SCH (08:16)
[2019-04-25] MEDS: MULTIVITAMIN TAB PO SCH (08:16)
[2019-04-25] MEDS: ATORVASTATIN 40 MG TAB PO SCH (08:16)
[2019-04-25] MEDS: ASPIRIN 81 MG ECTAB PO SCH (08:17)
[2019-04-25] MEDS: METOPROLOL SUCC 25MG EXT REL TAB PO SCH (08:17)
[2019-04-25] MEDS: CALCIUM 600MG + VIT D 400 IU TAB PO SCH (08:17)
[2019-04-25] MEDS: VITAMIN B COMPLEX TAB PO SCH (08:18)
--- NOTE | 2019-04-25 11:24 | Hospitalist Progress Note ---
Date of Service April 25, 2019 Assessment & Plan (1) TIA (transient ischemic attack): Mrs. 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 Her symptoms improved and she did not receive TPA . PT/OT/ST Has been on ASA 81mg daily, Plavix 75mg daily and Atorvastatin 40mg HS pt recently had ziopatch as outpt 02/27/19 revealed atrial tachycardia - may need prolonged event recorder to r/o afib Clinically asymptomatic and without any neurological symptoms noted Appreciate neurology evaluation and recommendation:Aspirin plus Plavix for 3 weeks and then Plavix alone and continuing statin Will get cardiology evaluation as well Patient remains stable without any acute issues Likely be discharged this afternoon Imaging studies CT head w/o acute abnormality, but did reveal right parietal encephalomalacia from remote infarct. She received ASA 325 while in ED Has been getting aspirin 81 mg daily and Plavix was added MRI brain w/o contrast showed:There are small foci of restricted diffusion identified within the right posterior frontal cortex and white matter consistent with acute to subacute ischemia. Echocardiogram: Sinus bradycardia with normal LV size, moderate concentric LV hypertrophy, mild global hypokinesia with EF of 40 to 45%, grade 1 diastolic dysfunction, no regional wall motion abnormalities, atrial septal aneurysm incidentally noted, with a small,hemodynamically insignificant shunt there is no significant valvular disease Carotid Doppler b/l : No significant stenosis noted Fasting lipid panel-noted: Hemoglobin A1c-5.7 (2) Follicular lymphoma grade II: recent dx, s/p surgical resection Follows Dr. Phillips for oncology and Dr. Porter for radiation oncology Current staging work up in process, had EUS last week of pancreatic lesion plan to receive XRT to L parotid no acute issue at time (3) Atrial tachycardia: Follows Dr. Schafer cardiology Due to EKG revealing ventricular ectopic breats 10/2018 had event monitor 02/27/19 which demonstrated freq ventricular ectopy and short runs of atrial tachycardia continue metoprolol monitor on tele for any further atrial arrythmia She is scheduled for stress echo 04/26/19 Awaiting cardiology input and recommendation (4) DVT prophylaxis: SCD/TEDS Increase ambulation Disposition: admit to PCU, case management consulted Follow up: PCP Dr. Reza upon discharge along with appropriate neurology follow up Patient was seen and examined in collaboration with Dr. Rivera, please see addendum Subjective 04/24 The patient is seen and examined in the telemetry unit Mrs. 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 Her symptoms resolved as of this morning and she did not require any TPA at presentation She passed a bedside swallowing evaluation has restarted on a diet She denies any symptoms 04/25 The patient was seen and examined in telemetry unit She denies any complaints today and does not have any neurological symptoms She has been ambulating without any difficulty She wants to go home Review of Systems Review of Systems: All systems reviewed and are unremarkable except as noted below Physical Exam Physical Exam: Sitting on a chair, outside bed without any symptoms Constitutional: well developed and well nourished; no acute distress Eyes: PERRL, conjunctivae normal, anicteric sclerae ENMT: external ear and nose normal, oropharynx normal Neck: trachea midline, no thyromegaly Respiratory: normal respiratory effort; no respiratory distress Auscultation: lungs clear to auscultation bilaterally Cardiovascular: Rate/Rhythm: regular rhythm Heart Sounds: no murmur Gastrointestinal (Abdomen): Inspection/Auscultation: abdomen normal to inspection and normal bowel sounds Musculoskeletal: Extremities: strength 5/5 throughout Neurologic: moves all extremities; no focal motor deficits Speech / Cognition: normal speech Lymphatic: no cervical or axillary lymphadenopathy Results & Data Vital Signs (Past 12 Hours) Vital Signs Temp Pulse Pulse Pulse Resp BP Pulse Ox 04/25/19 07:57 36.8 C 62 16 149/70 H 95 04/25/19 01:43 36.6 C 66 18 152/88 H 97 04/24/19 23:20 66 Laboratory Results Short CBC 04/25/19 Range/Units 05:39 WBC 5.15 (4.8-10.8) K/uL Hgb 13.1 (12.0-16.0) g/dL Hct 40.5 (37-47) % Plt Count 172 (130-400) K/uL [facility] 04/25/19 05:39 Sodium 143 Potassium 4.1 Chloride 110 H Carbon Dioxide 31 BUN 15 Creatinine 0.87 Glucose 94 Calcium 8.9 Medications Administered Current Inpatient Medications Acetaminophen (Tylenol) 650 mg PO Q4H PRN PRN Reason: Pain or Fever Stop: 05/23/19 19:09 Al Hydrox/Mg Hydrox/Simethicone (Maalox) 15 ml PO Q4H PRN PRN Reason: Dyspepsia Stop: 05/23/19 19:09 Aspirin (Ecotrin Ectab) 81 mg PO DAILY [facility] Stop: 05/24/19 08:59 Last Admin: 04/25/19 08:17 Dose: 81 mg Documented by: Atorvastatin Calcium (Lipitor) 40 mg PO QAM [facility] Stop: 05/23/19 20:59 Last Admin: 04/25/19 08:16 Dose: 40 mg Documented by: Clopidogrel Bisulfate (Plavix) 75 mg PO QAM [facility] Stop: 05/23/19 19:29 Last Admin: 04/25/19 08:16 Dose: 75 mg Documented by: Gadobutrol (Gadavist 65ml) 8.1 ml IV ONCE PRN PRN Reason: Interaction Checking Stop: 04/29/19 01:00 Last Admin: 04/25/19 00:44 Dose: 8.1 ml Documented by: Magnesium Hydroxide (Milk Of Magnesia) 30 ml PO Q12H PRN PRN Reason: Constipation Stop: 05/23/19 19:09 Metoprolol Succinate (Toprol Xl) 25 mg PO DAILY [facility] Stop: 05/24/19 08:59 Last Admin: 04/25/19 08:17 Dose: 25 mg Documented by: Miscellaneous Information (Pharmacist Discharge Med Rec Consult) 1 ea N/A UD PRN PRN Reason: Consult Stop: 05/23/19 19:09 Multivitamins (Multivitamin Tab) 1 tab PO DAILY [facility] Stop: 05/24/19 08:59 Last Admin: 04/25/19 08:16 Dose: 1 tab Documented by: Multivitamins/Minerals (Caltrate Plus) 1 tab PO DAILY [facility] Stop: 05/24/19 08:59 Last Admin: 04/25/19 08:17 Dose: 1 tab Documented by: Ondansetron HCl (Zofran) 4 mg IV Q6H PRN PRN Reason: Nausea Stop: 05/23/19 19:09 Polyethylene Glycol (Miralax Powder Packet) 17 gm PO DAILY PRN PRN Reason: Constipation Stop: 05/23/19 19:09 Vitamin B Complex (Vitamin B Complex) 1 tab PO DAILY [facility] Stop: 05/24/19 08:59 Last Admin: 04/25/19 08:18 Dose: 1 tab Documented by: (1) Follicular lymphoma grade II Lymphoma site: neck Qualified Code(s): C82.11 - Follicular lymphoma grade II, lymph nodes of head, face, and neck
--- NOTE | 2019-04-25 14:13 | Cardiology Consultation ---
Date of Consultation April 25, 2019 Assessment & Plan (1) TIA (transient ischemic attack): Given the fact that the patient is never been found to be in sustained atrial fibrillation or atrial flutter there is no cardiac indication for anticoagulation at this time. However, given her ongoing lymphoma I would suspect that she is in a hypercoagulable state and may in fact benefit from anticoagulation. Would recommend discussion with our oncology colleagues. (2) Follicular lymphoma grade II: (3) Atrial ectopy: Frequent Asymptomatic (4) Ventricular ectopy: Frequent Asymptomatic (5) Cardiomyopathy: Newly discovered Unclear etiology Given her frequent atrial ventricular ectopy my initial thought would be that it is nonischemic in nature and likely due to the frequent ectopy. She will of course require an ischemic work-up but given her acute TIA I would defer a nuclear stress test to the outpatient setting in the next week or 2 as her acute event resolves. In the meantime, I will attempt to increase her beta-blockade in order to suppress her frequent ectopy. Ideally, we would treat with further goal-directed medical therapy including IRA/ARB and aldosterone antagonist, however, we will proceed slowly giving the acute event and her likely need for permissive hypertension to increase cerebral blood flow Mrs. Perez was counseled on the above findings and recommendations at great lengths and she is in agreement with the plan. Continue to monitor on telemetry. History of Present Illness Reason for Consultation: Cardiac indication for anticoagulation? Requesting Physician: Dr. Valencia Attending Physician: Alka Valencia MD History of Present Illness It was my pleasure to see Mrs. Perez in consultation today April 25, 2019. She is a very pleasant 78-year-old woman who was recently established with Dr. Schafer of her cardiology practice for her incidentally found frequent ectopy. She presented to [facility] on 04/24/2019 by her daughter secondary to an episode of slurred speech and left facial droop that lasted approximately 3060 minutes. Stroke alert was called however given the resolution of her symptoms IV lytic therapy was not indicated. Currently she states that she is feeling better. She still having some difficulty finding words but otherwise feeling well. She denies any cardiac complaints of chest pain, shortness of breath, palpitations, lightheadedness, dizziness or syncope. The patient does have history of asymptomatic atrial and ventricular ectopy with no documentation of atrial fibrillation or flutter. Her cardiac work-up is incomplete at this point having been scheduled for an exercise stress echocardiogram tomorrow as an outpatient. Allergies Allergy/AdvReac Type Severity Reaction Status Date / Time chlorpheniramine AdvReac Mild "Antsy Verified 04/23/19 16:26 [From Chlor-Trimeton] Feeling" Home Medications Home Medications Medication Instructions Recorded Confirmed Type aspirin 325 mg PO DAILY 04/23/19 04/23/19 History calcium carbonate-vitamin D3 1 tab PO DAILY 04/23/19 04/23/19 History metoprolol succinate 25 mg PO DAILY 04/23/19 04/23/19 History multivitamin 1 tab PO DAILY 04/23/19 04/23/19 History vitamin B complex [B-Complex] 1 tab PO DAILY 04/23/19 04/23/19 History Patient History Medical History Arthritis Atrial tachycardia 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 Mother , Passed age 83 of Alzheimers Disease No problems noted. Brother No problems noted. Sister ALL (acute lymphoblastic leukemia), Onset Age: 66 Now in remission Daughter No problems noted. Son No problems noted. 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 Other Information That Helps Us Care for You: No Feels Safe at Home: Yes Safety Concerns: Feels Safe At This Time Smoking Status: Never smoker Do You Dip or Chew Tobacco: No ; Second Hand Exposure: No ; Tobacco Cessation Education Requested by Patient: No Hx Alcohol Use: No Hx Substance Use: No Childhood Exposure to Second-Hand Smoke: Yes (Father Smoked in Home ) caffeine: Yes (4 cups of coffee/day ) Dental Care, Regularly: Yes Review of Systems Review of Systems: All systems reviewed & are unremarkable except as noted in HPI & below Physical Exam Physical Exam: General: Awake, alert and oriented x 3. No acute distress. HEENT: Normocephalic, atraumatic. Pupils equal, round and reactive to light and accommodation. Extraocular muscles are intact. Anicteric sclera. Moist mucous membranes. Neck: No JVD. No bruit. Cardiovascular: Regular. Positive S-4. Normal S-1 and S-2. No S-3. No murmurs or rubs. Pulmonary: Clear to auscultation B/L. No rales, rhonchi or wheezing Abdomen: Bowel sounds x 4, soft. No rebound, guarding or tenderness. No organomegaly. Extremities: No clubbing, cyanosis or edema. +2 pedal pulses bilaterally. Skin: Warm and dry. Results & Data Vital Signs (Past 12 Hours) Vital Signs Temp Pulse Resp BP Pulse Ox 04/25/19 11:41 36.6 C 72 18 135/80 96 04/25/19 07:57 36.8 C 62 16 149/70 H 95 (1) Follicular lymphoma grade II Lymphoma site: neck Qualified Code(s): C82.11 - Follicular lymphoma grade II, lymph nodes of head, face, and neck
--- NOTE | 2019-04-25 14:26 | Neurology Progress Note ---
Date of Service April 25, 2019 Assessment & Plan (1) CVA (cerebral vascular accident): 1. MRI - posterior right frontal lobe acute /subacute infarcts 2. cardiology - no cardiovascular reason for NAC 3. would consult oncology for NAC - history of lymphoma and suspicious areas in pancreas 4. optimize HTN, HLD, LDL <70 5. cardiology for outpatient work up will be rescheduled 6. continue plavix 75 mg and aspirin 81 mg x 3 weeks then continue aspirin for a lifetime- unless oncology would recommend starting NAC- Dr Valencia discussed with cardiology and oncology both are ok with the plavix and aspirin. further recommendations as outpatient 7. will follow up neurology 4-6 weeks after discharge Jeanette Fraire PAC schedule. (2) Atrial tachycardia: (3) Weakness on right side of face: (4) Slurred speech: Supervising Physician Co-Signing Physician Notes I have discussed above patient with Dr Jeanette Gallardo, neurology. Have discussed with Jeanette Fraire. We have reviewed the work-up which includes an MRI of the brain with contrast which shows no enhancing lesions. Venous Doppler of the lower extremities did not show a clot. Would recommend long-term cardiac monitoring as an outpatient to rule out intermittent atrial fibrillation. Antiplatelet therapy as above the patient should see us in follow-up post discharge. 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 She presented to [facility] ED secondary to slurred speech and left facial droop x30 to 60 minutes prior to arrival. She lives with her daughter in [place] during the winter, but lives alone in [place] [facility] [place] [facility] in the summer. She has had a weight loss over the past 6 months, intentional. She states at that time she developed inability to move 3 fingers on her right hand that lasted 36 hours before resolving. Since then she has taken aspirin 325 mg daily which also helps her arthritis symptoms. She has been off aspirin due to the EUS at [place] for the pancreatic mass and was suppose to the a stress echo this Monday but that has been cancelled by Cardiology. She feels her speech is back to baseline and there is no further facial droop. denies CP, SOB, abdominal pain, one sided weakness,numbness tingling, bowel or bladder issues, vision changes, headache. Physical Exam Physical Exam: Gen: alert NAD eyes: PERRL/EOMI lungs CTA CV RRR finger to nose no bi pass strength hand director nurses' registry biceps triceps 5/5 bilaterally hip flex plantar flex ext 5/5 bilaterally sensation intact to light touch Results & Data Vital Signs (Past 12 Hours) Vital Signs Temp Pulse Resp BP Pulse Ox 04/25/19 11:41 36.6 C 72 18 135/80 96 04/25/19 07:57 36.8 C 62 16 149/70 H 95 Laboratory Results Abnormal lab results 04/25/19 04/25/19 Range/Units 05:39 05:39 RBC 4.12 L (4.2-5.4) M/uL RDW Std Deviation 51.8 H (36.4-46.3) fL MPV 10.8 H (7.4-10.4) fL Chloride 110 H (98-107) mmol/L Anion Gap 2.0 L (3-11) Diagnostic Findings MRI brain- . Several punctate foci of restricted diffusion involving the posterior right frontal lobe cortex are redemonstrated suggestive of acute or subacute infarcts. Age-related involutional changes with moderate chronic microvascular ischemic disease. Multiple areas of remote infarct are redemonstrated. No abnormal enhancement. venous doppler-No evidence of lower extremity DVT. carotid doppler-There is no sonographic evidence of hemodynamically significant stenosis in the right or left carotid arterial system. Antegrade flow is shown in the vertebral arteries. There are 2 enlarged left cervical chain lymph nodes identified, likely corresponding to the patient's known history of lymphoma.
[2019-04-25] MEDS ORDERED: STROKE PATIENT DISCHARGE STA (15:13)
--- NOTE | 2019-04-25 15:19 | Discharge Summary ---
Date of Service April 25, 2019 Admission HPI Per Admitting Provider Mrs. 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 Daughter is at bedside. She currently lives with her daughter in [place] during the winter, but lives alone in [facility] in the summer. Somewhere between 2 and 3 PM patient developed slurred and garbled speech and left facial droop. "I thought my speech sounded funny." Daughter denies any confusion, weakness of upper or lower extremities or seizure-like activity. Patient recalls all events. Symptoms lasted between 30 to 60 minutes, prior to resolving. Daughter feels dysarthria is still mildly present. She denies any headache, lightheadedness, dizziness, change in vision, change in hearing, diplopia, chest pain, shortness breath, palpitations. She denies any recent illness. She denies fever, chills, sweats, nausea, vomiting, abdominal pain, diarrhea, change or bowel or urinary habits. Denies loss of bowel or bladder habits during event. Prior to today appetite has been normal. She does admit to approximately 30 pound weight loss over the past 6 months, intentional. She does have remote history of CVA in 2009, "I would just called mini stroke." She states at that time she developed inability to move 3 fingers on her right hand that lasted 36 hours before resolving. Since that time she has been on ASA daily. Currently taking 325 mg also secondary to arthritis. Of significance patient with recent diagnosis of enlarging mass to her left parotid area in which she ultimately underwent surgical resection and pathology returned with low-grade follicular lymphoma. She has been following with oncologist Dr. Schaefer. She is currently undergoing staging. On imaging she was also found to have pancreatic mass and last week underwent a EUS at [place], results pending. She has seen Dr. Porter with radiation oncology and plan is to undergo radiation to left parotid once final staging obtained. Currently she has not received any treatment. She also notes that she was to get a stress echo done this coming Monday. In ED stroke alert was called. Due to improvement of symptoms TPA was contraindicated. She remained hemodynamically stable and blood pressure has been well controlled. CBC, CMP, mag, PT/INR relatively unremarkable. She received ASA 325 while in ED. Discussed case with ED Provider Dr. Byrne. Reviewed outpt records in [facility] and [facility]. Admission Exam Per Admitting Provider Physical Exam: Constitutional: WD/WN, elderly, F, appears age, vitals as above, NAD, sitting up in bed, pleasant, conversing easily Head: Normocephalic, Atraumatic Eyes: PERRL, conjunctivae normal, anicteric sclerae ENMT: external ear and nose normal, oropharynx normal Neck: trachea midline, no thyromegaly normal visual inspection Respiratory: normal respiratory effort, lungs clear to auscultation, no wheeze, rales, rhonchi. Normal insp/exp effort, no accessory muscle use Cardiovascular: RRR, with occasional ectopy noted on auscultation, 1/6 MITCH noted RUSB, trace pretibial edema Vessels: no JVD or carotid bruit Chest: normal inspection of chest Abdomen: normal bowel sounds, soft, nontender, no hepatosplenomegaly Musculoskeletal: no cyanosis or clubbing, extremities motor strength 5/5 Skin: no rashes, warm and dry normal turgor Neurologic: PERRL, EOMI, accommodation nl, no face palsy, very mild dysarthria, facial droop not present. CN's II-XI intact bilaterally and moves all extremities Psychiatric: A+Ox3, euthymic affect Lymphatic: no cervical or axillary lymphadenopathy : deferred Principal Diagnosis CVA-right frontal lobe acute/subacute infarcts, atrial tachycardia, hypertension, hyperlipidemia, grade 2 follicular lymphoma Discharge Exam Constitutional well developed and well nourished; no acute distress Eyes PERRL, conjunctivae normal, anicteric sclerae ENMT external ear and nose normal, oropharynx normal Neck trachea midline, no thyromegaly Respiratory normal respiratory effort; no respiratory distress Auscultation: lungs clear to auscultation bilaterally Cardiovascular Rate/Rhythm: regular rhythm Heart Sounds: no murmur Gastrointestinal (Abdomen) Inspection/Auscultation: abdomen normal to inspection and normal bowel sounds Musculoskeletal Extremities: strength 5/5 throughout Neurologic moves all extremities; no focal motor deficits Speech / Cognition: normal speech Lymphatic no cervical or axillary lymphadenopathy Discharge Data Allergies Allergy/AdvReac Type Severity Reaction Status Date / Time chlorpheniramine AdvReac Mild "Antsy Verified 04/23/19 16:26 [From Chlor-Trimeton] Feeling" Consultations 04/23/19 16:16 ED Decision to Admit Stat 04/23/19 16:52 Consult Neurology Routine 04/23/19 19:10 Consult Case Management - Discharge Planning Routine 04/25/19 08:27 Consult Cardiology Routine Ordered Studies 04/23/19 15:32 CT head/brain wo con Stat 04/23/19 16:52 MR brain wo con Routine US carotid doppler BI Routine 04/24/19 13:06 US venous doppler LE BI Routine 04/25/19 00:00 MR brain wo/w con Routine Hospital Course (1) TIA (transient ischemic attack): Mrs. 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 Her symptoms improved and she did not receive TPA . PT/OT/ST Has been on ASA 81mg daily, Plavix 75mg daily and Atorvastatin 40mg HS pt recently had ziopatch as outpt 02/27/19 revealed atrial tachycardia - may need prolonged event recorder to r/o afib Clinically asymptomatic and without any neurological symptoms noted Appreciate neurology evaluation and recommendation:Aspirin plus Plavix for 3 weeks and then Plavix alone and continuing statin Will get cardiology evaluation as well Patient remains stable without any acute issues Likely be discharged this afternoon Discussed with on-call oncologist: We will continue aspirin and Plavix for now as recommended by neurologist and the patient will be evaluated by oncologist as an outpatient on Monday who will decide if any more anticoagulation is needed. Imaging studies CT head w/o acute abnormality, but did reveal right parietal encephalomalacia from remote infarct. She received ASA 325 while in ED Has been getting aspirin 81 mg daily and Plavix was added MRI brain w/o contrast showed:There are small foci of restricted diffusion identified within the right posterior frontal cortex and white matter consistent with acute to subacute ischemia. Echocardiogram: Sinus bradycardia with normal LV size, moderate concentric LV hypertrophy, mild global hypokinesia with EF of 40 to 45%, grade 1 diastolic dysfunction, no regional wall motion abnormalities, atrial septal aneurysm incidentally noted, with a small,hemodynamically insignificant shunt there is no significant valvular disease Carotid Doppler b/l : No significant stenosis noted Fasting lipid panel-noted: Hemoglobin A1c-5.7 (2) Follicular lymphoma grade II: recent dx, s/p surgical resection Follows Dr. Phillips for oncology and Dr. Porter for radiation oncology Current staging work up in process, had EUS last week of pancreatic lesion plan to receive XRT to L parotid no acute issue at time (3) Atrial tachycardia: Follows Dr. Schafer cardiology Due to EKG revealing ventricular ectopic breats 10/2018 had event monitor 02/27/19 which demonstrated freq ventricular ectopy and short runs of atrial tachycardia continue metoprolol monitor on tele for any further atrial arrythmia She is scheduled for stress echo 04/26/19 Awaiting cardiology input and recommendation (4) DVT prophylaxis: SCD/TEDS Increase ambulation Disposition: admit to PCU, case management consulted Follow up: PCP Dr. Reza upon discharge along with appropriate neurology follow up Patient was seen and examined in collaboration with Dr. Rivera, please see addendum Total Time Total Time Spent Total Time Spent (In Minutes): 45 minutes Total Time Includes: Examination of the Patient, Discharge Planning, Medication Reconciliation and Communication With Other Providers Discharge Plan Discharge Items Patient Disposition: Home - Self-Care Reason For Visit: TIA Discharge Diagnosis: CVA-right frontal lobe acute/subacute infarcts, atrial tachycardia, hypertension, hyperlipidemia, grade 2 follicular lymphoma Condition on Discharge: Good Activity: Resume your previous activity Non-emergency contact: Primary Care Provider Call non-emergency contact if: you have any medication questions and your symptoms worsen Follow-up/Referrals: Anastasia Reza DO [Primary Care Provider] - 04/25/19 3:03 pm (Please keep appointment with your oncologist on Monday) Diet: Heart Healthy Addtl Attending Provider Instructions: Please take precaution to avoid fall Continue aspirin and Plavix for 3 weeks and then continue Aspirin for life long Oncology evaluation as an outpatient for consideration of any other anticoagulation given the history of lymphoma Pending Studies at Discharge: No Stand-Alone Forms: Medications to Prevent Stroke, My ReaMetrix, Smoking Cessation Medications and DC Order Prescriptions: New atorvastatin 40 mg Tablet 40 mg PO QAM Qty: 30 RF: 0 clopidogrel 75 mg Tablet 75 mg PO QAM 21 Days Qty: 21 RF: 0 aspirin [Ecotrin Low Strength] 81 mg Tablet,Delayed Release (Dr/Ec) 81 mg PO DAILY 30 Days Qty: 30 RF: 0 Continued multivitamin Tablet 1 tab PO DAILY RF: 0 calcium carbonate-vitamin D3 600 mg(1,500mg) -200 unit Tablet 1 tab PO DAILY RF: 0 vitamin B complex [B-Complex] Tablet 1 tab PO DAILY RF: 0 metoprolol succinate 25 mg tablet extended release 24 hr 25 mg PO DAILY RF: 0 Discontinued aspirin 325 mg Tablet,Delayed Release (Dr/Ec) 325 mg PO DAILY RF: 0 Discharge Orders: Discharge Order (Routine); Ordered 04/25/19 Ordered By: Alka Valencia Admission Data Admit Date/Time: 04/23/19 16:52 Attending Provider: Alka Valencia Admit Provider: Dima Rivera Primary Care Provider: Anastasia Reza Other Providers: Dima Rivera ; Colton Cho ; Kevin Figueredo ; Masood Schafer ; Lev Castillo ; Asim Gray ; Dharmesh Gasca ; Samantha Garcia ; Jeanette Nichols ; Hector Collins ; Jeanette Gallardo
--- NOTE | 2019-04-25 15:36 | Pharmacy Report ---
Pharmacist Stroke Counseling - Date of Service April 25, 2019 - Scope: Pharmacy has been consulted to provide medication discharge counseling for this patient admitted with ischemic stroke as per the Pharmacist Discharge Counseling for Stroke Patients Protocol. - Medications on Discharge: Home Medications Medication Instructions Recorded Confirmed calcium carbonate-vitamin D3 1 tab PO DAILY 04/23/19 04/23/19 metoprolol succinate 25 mg PO DAILY 04/23/19 04/23/19 multivitamin 1 tab PO DAILY 04/23/19 04/23/19 vitamin B complex [B-Complex] 1 tab PO DAILY 04/23/19 04/23/19 New Rx's Medication Instructions Recorded aspirin [Ecotrin Low Strength] 81 mg PO DAILY 30 Days #30 tab 04/25/19 atorvastatin 40 mg PO QAM #30 tab 04/25/19 clopidogrel 75 mg PO QAM 21 Days #21 tab 04/25/19 - Action: The above medications, specifically ones for stroke treatment/prophylaxis, have been reviewed in detail with the patient prior to discharge. This includes indication, common adverse reactions, drug interactions, and medication administration. Medication counseling has been employed using the teach-back method to ensure understanding. - Outcome: The patient demonstrated understanding of the medications. Please note, they are aware that the pharmacist will call them within 72 hours post-discharge to confirm that the appropriate medications are being taken and answer any further medication related questions the patient might have at that time. Contact information Individual to be contacted: Patient Phone number: [phone] Best time to call: anytime Additional comments: Reviewed specifically to decrease aspirin dose to 81mg, clopidogrel x 21 days only, and that metoprolol will still be 25mg daily, she will follow-up with cardiology if there are further changes (Dr Cho wanted to discuss with Dr Schafer before increasing dose). Educated pt that 25mg tablets can be split if needed. Patient states her daughter and son both had bad reactions to atorvastatin - so provider will be changing her to rosuvastatin. Reviewed ADRs. Thank you for allowing pharmacy to be involved in the care of this patient. Please call [phone] or [phone] with any additional questions
--- NOTE | 2019-04-26 13:28 | Pharmacy Report ---
Pharmacist Post D/C Phone Note - Phone Note: Date of phone call: April 26, 2019. Individual with whom pharmacist spoke to: FAYE LIND The following questions were reviewed during the phone call with responses listed below each: Can you tell me the medications that you are currently taking as well as when and how you take each medication? -See Table Below When have you missed any doses of your medications? - Patient has not picked up Lipitor d/t reasons listed in previous note. She had requested Crestor instead. I could not see that this was called in so contacted Rebecca corporate travel agent today to have taken care of. What side effects are you having from your medications, specifically, the new medications you were started on? - No bleeding noted What questions do you have about your medications? - None, other than Lipitor noted above What problems are you having obtaining your medications? - None other than above When is your next appointment with your primary care doctor? - will see oncologist on Monday As per the Pharmacist Discharge Counseling for Stroke Patients Protocol, this phone call has been completed within 72 hours of discharge. Thank you for allowing us to be involved in the care of this patient. - Home Medications: Home Medications Medication Instructions Recorded Confirmed calcium carbonate-vitamin D3 1 tab PO DAILY 04/23/19 04/23/19 metoprolol succinate 25 mg PO DAILY 04/23/19 04/23/19 multivitamin 1 tab PO DAILY 04/23/19 04/23/19 vitamin B complex [B-Complex] 1 tab PO DAILY 04/23/19 04/23/19 New Rx's Medication Instructions Recorded aspirin [Ecotrin Low Strength] 81 mg PO DAILY 30 Days #30 tab 04/25/19 atorvastatin 40 mg PO QAM #30 tab 04/25/19 clopidogrel 75 mg PO QAM 21 Days #21 tab 04/25/19
== END 2019-04-25 16:19 | disposition home or self-care (01) | DRG 65 ==
LOC: ED 15:23 → 2S 16:52 → SUATTDRO 16:52 → 2S 17:13

== ENCOUNTER 2022-04-04 22:52 | Observation (INO) ==
[2022-04-04 23:50] LABS: Basophils # (auto) 0.02 K/uL (0-0.2); Basophils % (auto) 0.2 %; Eosinophils # (auto) 0.22 K/uL (0-0.50); Eosinophils % (auto) 2.4 %; Hematocrit (blood only) 42.7 % (34.1-44.9); Hemoglobin 14.4 g/dl (12.0-16.0); Immature Granulocytes # (auto) 0.07 K/uL (0.00-0.02); Immature Granulocytes % (auto) 0.8 %; Lymphocytes # (auto) 0.23 K/uL (1.2-3.4); Lymphocytes % (auto) 2.5 %; Mean Corpuscular Hemoglobin 34.4 pg (25.0-34.0); Mean Corpuscular Hgb Conc 33.7 g/dL (32.0-36.0); Mean Corpuscular Volume 102.2 fL (80.0-100.0); Mean Platelet Volume 11.6 fL (9.4-12.3); Monocytes # (auto) 0.48 K/uL (0.24-0.82); Monocytes % (auto) 5.2 %; Neutrophils # (auto) 8.16 K/uL (1.4-6.5); Neutrophils % (auto) 88.9 %; Platelet Count 180 K/uL (130-400); RDW Coefficient of Variation 15.2 % (11.5-14.5); Red Blood Count 4.18 M/uL (3.93-5.22); White Blood Count 9.18 K/ul (4.8-10.8)
[2022-04-05 00:02] LABS: INR 1.1 (0.9-1.1); Partial Thromboplastin Ratio 0.9; Partial Thromboplastin Time 25.6 Seconds (21.0-31.0)
[2022-04-05 00:09] LABS: Albumin Globulin Ratio 1.4 (0.9-2); Albumin Level 4.2 gm/dl (3.4-5.0); Bilirubin,Total 1.2 mg/dl (0.2-1.0); Calcium 9.8 mg/dl (8.5-10.1); Creatinine Clr Calc Pharmacy 38.7 ml/min; Est GFR (African American) 53.7 ml/min; Est GFR (Non-African American) 46.4 ml/min; Globulin 2.9 gm/dl (2.5-4.0); Potassium 4.1 mmol/L (3.5-5.1); Total Protein 7.1 gm/dl (6.0-8.3)
--- NOTE | 2022-04-05 00:12 | Emergency Department Note ---
History of Present Illness General Chief complaint: Stroke/CVA Symptoms Stated complaint: WEAKNESS, BREATHING HEAVY, HANDS TURNING BLUE Time Seen by Provider: 04/04/22 23:51 Source: patient Mode of arrival: ambulatory Limitations: no limitations History of Present Illness Provider complaint: Weakness, off balance, increased work of breathing This is an 81-year-old female brought in by family today due to concern for increased weakness and balance issues. Family states she has had a decline over the last many months that they attributed to age, and states she has been weak and off balance since June, however family noticed a marked worsening of this today. Family also felt she appeared more short of breath and that her hands appeared reddened and at times almost blue. No prior history of rheumatologic d isorder including Raynaud's disease. Patient states only recent medication change was a restarting of Zetia for her cholesterol after she did not tolerate Crestor. She denies any recent illness, fevers or chills. Family also noticed that her speech seemed slower and that she had to speak more intentionally this evening which is a deviation from her normal also. Family states due to her prior history of TIAs they were concerned for possible stroke. Patient does use anticoagulation daily due to history of atrial fibrillation. She did see cardiology last week for a routine visit. Home Medications Medication Instructions Recorded Confirmed Type calcium carbonate 600 mg-vitamin 1 tab PO DAILY 04/23/19 04/05/22 History D3 5 mcg (200 unit) tablet multivitamin 1 tab PO DAILY 04/23/19 04/05/22 History apixaban 5 mg tablet (Eliquis) 5 mg PO AMHS 10/17/19 04/05/22 History anastrozole 1 mg tablet (Arimidex) 1 mg PO DAILY 11/04/20 04/05/22 History furosemide 20 mg tablet (Lasix) 20 mg PO Q OTHER DAY 11/04/20 04/05/22 History potassium chloride 10 mEq 10 meq PO Q OTHER DAY 11/04/20 04/05/22 History capsule,extended release alendronate 70 mg tablet (Fosamax) 70 mg PO WK 04/05/22 04/05/22 History diclofenac sodium 1 % topical gel 2 g EXT TID 3 days #100 grams 04/05/22 Rx (Voltaren Arthritis Pain) metoprolol succinate 100 mg 100 mg PO QAM 04/05/22 04/05/22 History tablet,extended release 24 hr vitamin B complex 1 tab PO DAILY 04/05/22 04/05/22 History Allergies Allergy/AdvReac Type Severity Reaction Status Date / Time ezetimibe AdvReac Intermediate Weakness Verified 04/05/22 05:12 chlorpheniramine AdvReac Mild "Antsy Verified 04/05/22 01:54 [From Chlor-Trimeton] Feeling" Past Med/Surg History Medical History Arthritis Atrial fibrillation Breast cancer, right 03/09/2020 Cardiomyopathy CVA (cerebral vascular accident) 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 Matthew on 04/22/2020 Family History Father , Passed age 88 of Kidney Cancer No problems noted. Mother , Passed age 83 of Alzheimers Disease No problems noted. Brother No problems noted. Sister ALL (acute lymphoblastic leukemia), Onset Age: 66 Now in remission Daughter No problems noted. Son No problems noted. 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 Feels Safe at Home: Yes Safety Concerns: Feels Safe At This Time Childhood Exposure to Second-Hand Smoke: Yes (Father Smoked in Home ) caffeine: Yes (4 cups of coffee/day ) Dental Care, Regularly: Yes Assistive Devices: Cane Review of Systems A total of 10 systems reviewed and were otherwise negative All systems reviewed & are unremarkable except as noted in HPI & below Physical Exam Vital Signs Vital Signs - 24 hr 04/05/22 05:00 Pulse Rate [Radial] 106 H Pulse Rhythm [Radial] Regular Pulse Strength [Radial] Normal Respiratory Rate 22 Respiratory Effort / Characteristics Spontaneous Labored Respiratory Depth Normal Respiratory Pattern Regular Pulse Oximetry 92 Oxygen Delivery Method Room Air GENERAL: alert, well appearing, well nourished, no distress, non-toxic EYE EXAM: normal conjunctiva, PERRL and EOM's grossly intact OROPHARYNX: no exudate, no erythema, lips, buccal mucosa, and tongue normal and mucous membranes are moist NECK: supple, no nuchal rigidity, no adenopathy, non-tender LUNGS: Clear to auscultation. Normal chest wall mechanics, no w/r/r HEART: no murmurs, S1 normal and S2 normal ABDOMEN: abdomen soft, non-tender, normo-active bowel sounds, no masses, no rebound or guarding. BACK: Back is symmetrical on inspection and there is no deformity, no midline tenderness, no CVA tenderness. SKIN: no rashes and no bruising UPPER EXTREMITIES: upper extremities are grossly normal. FROM, nml pulses b/l. Sensation intact bilaterally. Patient with slight increased erythema noted to bilateral dorsal hands. LOWER EXTREMITIES: No pitting edema. FROM, nml pulses b/l. NEURO EXAM: Normal sensorium, cranial nerves II-XII grossly intact, normal speech, no facial droop, no gross weakness of arms, no gross weakness of legs. No pronator drift. No ataxia. Gross sensation intact. Course Administered Medications Anastrozole (Anastrozole 1 Mg Tab) 1 mg PO DAILY [facility] Stop: 05/05/22 08:59 Last Admin: 04/05/22 08:56 Dose: 1 mg Documented By: JES Co-signed By: ARNALDO Diclofenac Sodium (Diclofenac Sod 1% Gel 100 Gm Tube) 2 gm EXT TID [facility]; Protocol Stop: 05/05/22 13:59 Last Admin: 04/05/22 14:16 Dose: 2 gm Documented By: JES Ezetimibe (Ezetimibe 10 Mg Tablet) 10 mg PO QAM [facility] Stop: 05/05/22 08:59 Last Admin: 04/05/22 09:29 Dose: Not Given Documented By: JES Multivitamins (Multivitamin Tab) 1 tab PO DAILY REKHA Stop: 05/05/22 08:59 Last Admin: 04/05/22 08:56 Dose: 1 tab Documented By: JES Vitamin B Complex (Vitamin B Complex Tab) 1 tab PO DAILY REKHA Stop: 05/05/22 08:59 Last Admin: 04/05/22 08:56 Dose: 1 tab Documented By: JES Discontinued Medications Apixaban (Apixaban 5 Mg Tablet) 5 mg PO NOW STA Stop: 04/05/22 03:50 Last Admin: 04/05/22 04:19 Dose: 5 mg Documented By: LISA Furosemide (Furosemide 20 Mg Tab) 20 mg PO ONE ONE Stop: 04/05/22 10:49 Last Admin: 04/05/22 11:13 Dose: 20 mg Documented By: JES Sodium Chloride (Nss) 500 mls @ 125 mls/hr IV .Q4H REKHA Stop: 05/05/22 00:14 Last Infusion: 04/05/22 06:59 Dose: 0 mls/hr Documented By: Infusion: 04/05/22 04:19 Dose: 0 mls/hr Documented By: Admin: 04/05/22 03:58 Dose: 125 mls/hr Documented By: Infusion: 04/05/22 03:58 Dose: 0 mls/hr Documented By: Admin: 04/05/22 00:26 Dose: 125 mls/hr Documented By: LISA Sodium Chloride (Nss) 500 mls @ 80 mls/hr IV .Q6H15M REKHA Stop: 05/05/22 03:59 Last Infusion: 04/05/22 06:59 Dose: 0 mls/hr Documented By: Infusion: 04/05/22 06:44 Dose: 0 mls/hr Documented By: Infusion: 04/05/22 05:05 Dose: 0 mls/hr Documented By: Admin: 04/05/22 04:19 Dose: 80 mls/hr Documented By: LISA Sodium Chloride (Nss) 500 mls @ 80 mls/hr IV .Q6H15M ONE Stop: 04/05/22 10:30 Last Admin: 04/05/22 06:46 Dose: Not Given Documented By: LISA Ioversol (Optiray 320 500ml) 125 ml IV ONCE ONE Stop: 04/05/22 01:23 Last Admin: 04/05/22 01:23 Dose: 112 ml Documented By: KOMAL Ipratropium [place] (Ipratropium [place] Neb Soln 0.02% 2.5 Ml Vial) 0.5 mg INH NOW STA Stop: 04/05/22 05:17 Last Admin: 04/05/22 05:35 Dose: 0.5 mg Documented By: LISA Levalbuterol HCl (Levalbuterol 1.25mg/0.5ml Neb) 1.25 mg INH NOW STA Stop: 04/05/22 05:18 Last Admin: 04/05/22 05:35 Dose: 1.25 mg Documented By: LISA Metoprolol Succinate (Metoprolol Succ 50mg Ext Rel Tab) 100 mg PO NOW STA Stop: 04/05/22 05:08 Last Admin: 04/05/22 08:09 Dose: Not Given Documented By: JES Medical Decision Making Differential Diagnosis Differential Diagnosis includes but is not limited to ischemic Stroke, hemorrhagic stroke, bells palsy, mass, neoplasm, migraine headache, seizure, subarachnoid hemorrhage, TIA, and transient global amnesia. Medical Records Attestation: I reviewed the patient's medical records. Home Medications Current Medication List: was personally reviewed by me Laboratory Data Attestation: I reviewed the patient's lab results. Result diagrams: 04/05/22 06:21 04/05/22 06:21 Lab Results 04/04/22 04/04/22 04/04/22 Range/Units 23:14 23:14 23:14 WBC 9.18 (4.8-10.8) K/ul RBC 4.18 (3.93-5.22) M/uL Hgb 14.4 (12.0-16.0) g/dl Hct 42.7 (34.1-44.9) % MCV 102.2 H (80.0-100.0) fL MCH 34.4 H (25.0-34.0) pg MCHC 33.7 (32.0-36.0) g/dL RDW Std Deviation 57.0 H (36.4-46.3) fL RDW Coeff of Pablo 15.2 H (11.5-14.5) % Plt Count 180 (130-400) K/uL MPV 11.6 (9.4-12.3) fL Immature Gran % (Auto) 0.8 % Neut % (Auto) 88.9 % Lymph % (Auto) 2.5 % [place] % (Auto) 5.2 % Eos % (Auto) 2.4 % Baso % (Auto) 0.2 % Neut # (Auto) 8.16 H (1.4-6.5) K/uL Lymph # (Auto) 0.23 L (1.2-3.4) K/uL [place] # (Auto) 0.48 (0.24-0.82) K/uL Eos # (Auto) 0.22 (0-0.50) K/uL Baso # (Auto) 0.02 (0-0.2) K/uL Immature Gran # (Auto) 0.07 H (0.00-0.02) K/uL PT 12.0 (9.0-12.0) Seconds INR 1.1 (0.9-1.1) APTT 25.6 (21.0-31.0) Seconds PTT Ratio 0.9 Sodium 136 (136-145) mmol/L Potassium 4.1 (3.5-5.1) mmol/L Chloride 100 (98-107) mmol/L Carbon Dioxide 29 (21-32) mmol/L Anion Gap 7 (3-11) BUN 28 H (6-23) mg/dl Creatinine 1.12 (0.6-1.2) mg/dl Est Cr Clr Drug Dosing 38.7 ml/min Est GFR ( Amer) 53.7 ml/min Est GFR (Non-Af Amer) 46.4 ml/min BUN/Creatinine Ratio 25.0 H (10-20) Glucose 143 H (70-99(Fasting)) mg/dl Calcium 9.8 (8.5-10.1) mg/dl Magnesium (1.7-2.4) mg/dl Total Bilirubin 1.2 H (0.2-1.0) mg/dl AST 26 (13-39) U/L ALT 20 (7-52) U/L Alkaline Phosphatase 41 (34-104) U/L Troponin I High Sens (0-14) pg/ml Total Protein 7.1 (6.0-8.3) gm/dl Albumin 4.2 (3.4-5.0) gm/dl Globulin 2.9 (2.5-4.0) gm/dl Albumin/Globulin Ratio 1.4 (0.9-2) Procalcitonin (0-0.5) ng/ml TSH (0.300-4.500) uIu/ml Urine Color Urine Appearance (Clear) Urine pH (4.5-7.5) Ur Specific [place] (1.000-1.030) Urine Protein (Negative) Urine Glucose (UA) (Negative) Urine Ketones (Negative) Urine Blood (Negative) Urine Nitrite (Negative) Urine Bilirubin (Negative) Urine Urobilinogen (Negative) Ur Leukocyte Esterase (Negative) Urine WBC (Auto) (0-5) /hpf Urine RBC (Auto) (0-4) /hpf U Hyaline Cast (Auto) (0-5) /lpf U Epithel Cells (Auto) (0-5) /lpf Urine Bacteria (Auto) (Negative) Urine Yeast (None Prsent) SARS-CoV-2, RNA, NAAT (NEGATIVE) 04/04/22 04/04/22 04/04/22 Range/Units 23:14 23:14 23:14 WBC (4.8-10.8) K/ul RBC (3.93-5.22) M/uL Hgb (12.0-16.0) g/dl Hct (34.1-44.9) % MCV (80.0-100.0) fL MCH (25.0-34.0) pg MCHC (32.0-36.0) g/dL RDW Std Deviation (36.4-46.3) fL RDW Coeff of [place] (11.5-14.5) % Plt Count (130-400) K/uL MPV (9.4-12.3) fL Immature Gran % (Auto) % Neut % (Auto) % Lymph % (Auto) % [place] % (Auto) % Eos % (Auto) % Baso % (Auto) % Neut # (Auto) (1.4-6.5) K/uL Lymph # (Auto) (1.2-3.4) K/uL [place] # (Auto) (0.24-0.82) K/uL Eos # (Auto) (0-0.50) K/uL Baso # (Auto) (0-0.2) K/uL Immature Gran # (Auto) (0.00-0.02) K/uL PT (9.0-12.0) Seconds INR (0.9-1.1) APTT (21.0-31.0) Seconds PTT Ratio Sodium (136-145) mmol/L Potassium (3.5-5.1) mmol/L Chloride (98-107) mmol/L Carbon Dioxide (21-32) mmol/L Anion Gap (3-11) BUN (6-23) mg/dl Creatinine (0.6-1.2) mg/dl Est Cr Clr Drug Dosing ml/min Est GFR ( Amer) ml/min Est GFR (Non-Af Amer) ml/min BUN/Creatinine Ratio (10-20) Glucose (70-99(Fasting)) mg/dl Calcium (8.5-10.1) mg/dl Magnesium 2.1 (1.7-2.4) mg/dl Total Bilirubin (0.2-1.0) mg/dl AST (13-39) U/L ALT (7-52) U/L Alkaline Phosphatase (34-104) U/L Troponin I High Sens 14.9 H (0-14) pg/ml Total Protein (6.0-8.3) gm/dl Albumin (3.4-5.0) gm/dl Globulin (2.5-4.0) gm/dl Albumin/Globulin Ratio (0.9-2) Procalcitonin 0.13 (0-0.5) ng/ml TSH 0.903 (0.300-4.500) uIu/ml Urine Color Urine Appearance (Clear) Urine pH (4.5-7.5) Ur Specific [place] (1.000-1.030) Urine Protein (Negative) Urine Glucose (UA) (Negative) Urine Ketones (Negative) Urine Blood (Negative) Urine Nitrite (Negative) Urine Bilirubin (Negative) Urine Urobilinogen (Negative) Ur Leukocyte Esterase (Negative) Urine WBC (Auto) (0-5) /hpf Urine RBC (Auto) (0-4) /hpf U Hyaline Cast (Auto) (0-5) /lpf U Epithel Cells (Auto) (0-5) /lpf Urine Bacteria (Auto) (Negative) Urine Yeast (None Prsent) SARS-CoV-2, RNA, NAAT (NEGATIVE) 04/04/22 04/05/22 Range/Units 23:30 04:15 WBC (4.8-10.8) K/ul RBC (3.93-5.22) M/uL Hgb (12.0-16.0) g/dl Hct (34.1-44.9) % MCV (80.0-100.0) fL MCH (25.0-34.0) pg MCHC (32.0-36.0) g/dL RDW Std Deviation (36.4-46.3) fL RDW Coeff of Pablo (11.5-14.5) % Plt Count (130-400) K/uL MPV (9.4-12.3) fL Immature Gran % (Auto) % Neut % (Auto) % Lymph % (Auto) % [place] % (Auto) % Eos % (Auto) % Baso % (Auto) % Neut # (Auto) (1.4-6.5) K/uL Lymph # (Auto) (1.2-3.4) K/uL [place] # (Auto) (0.24-0.82) K/uL Eos # (Auto) (0-0.50) K/uL Baso # (Auto) (0-0.2) K/uL Immature Gran # (Auto) (0.00-0.02) K/uL PT (9.0-12.0) Seconds INR (0.9-1.1) APTT (21.0-31.0) Seconds PTT Ratio Sodium (136-145) mmol/L Potassium (3.5-5.1) mmol/L Chloride (98-107) mmol/L Carbon Dioxide (21-32) mmol/L Anion Gap (3-11) BUN (6-23) mg/dl Creatinine (0.6-1.2) mg/dl Est Cr Clr Drug Dosing ml/min Est GFR ( Amer) ml/min Est GFR (Non-Af Amer) ml/min BUN/Creatinine Ratio (10-20) Glucose (70-99(Fasting)) mg/dl Calcium (8.5-10.1) mg/dl Magnesium (1.7-2.4) mg/dl Total Bilirubin (0.2-1.0) mg/dl AST (13-39) U/L ALT (7-52) U/L Alkaline Phosphatase (34-104) U/L Troponin I High Sens (0-14) pg/ml Total Protein (6.0-8.3) gm/dl Albumin (3.4-5.0) gm/dl Globulin (2.5-4.0) gm/dl Albumin/Globulin Ratio (0.9-2) Procalcitonin (0-0.5) ng/ml TSH (0.300-4.500) uIu/ml Urine Color Yellow Urine Appearance Clear (Clear) Urine pH 6.0 (4.5-7.5) Ur Specific [place] 1.021 (1.000-1.030) Urine Protein 1+ H (Negative) Urine Glucose (UA) Negative (Negative) Urine Ketones 1+ H (Negative) Urine Blood Trace H (Negative) Urine Nitrite Negative (Negative) Urine Bilirubin Negative (Negative) Urine Urobilinogen Negative (Negative) Ur Leukocyte Esterase Trace H (Negative) Urine WBC (Auto) 10-30 H (0-5) /hpf Urine RBC (Auto) 0-4 (0-4) /hpf U Hyaline Cast (Auto) 5-10 H (0-5) /lpf U Epithel Cells (Auto) >30 H (0-5) /lpf Urine Bacteria (Auto) Negative (Negative) Urine Yeast Present A (None Prsent) SARS-CoV-2, RNA, NAAT NEGATIVE (NEGATIVE) Imaging Data My Impression: X-ray: I interpreted the following studies. Chest: A single view study of the chest was reviewed and was negative for cardiomegaly, focal infiltrate, effusion, pulmonary edema, or wide mediastinum. Radiologist's Impression: CT head: Comparison is made to a prior CTA of the head dated 04/23/2019. There is evidence for old right [employer] distribution infarct. No evidence for acute intracranial hemorrhage, midline shift, or mass-effect. No convincing evidence of new acute transcortical infarct. Radiologist: Abelino Pina MD CTA neck: No evidence of vascular occlusion, dissection, or hemodynamically significant stenosis in the neck. Mild atherosclerotic plaque of the carotid bifurcations without hemodynamically significant stenosis. Degenerative changes of spine. Post left parotidectomy. 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 True and false lumens are similar opacified. origin of left posterior cerebral artery. Radiologist: Ruy Kaufman MD ECG Data Attestation: I personally reviewed and interpreted this ECG as follows: Indication: + weakness Rate (beats per minute): 111 Rhythm: + atrial fibrillation ECG Intervals/blocks: + Normal QRS and + Normal QT ECG [place]: + Normal ECG ST segments: + Nonspecific ST abnormalities MDM Narrative An order was placed for continuous cardiac monitoring. The monitor shows a rate of _102__ with _a.fib__ rhythm. This is a 89-year-old female presents emergency department with family bedside due to concern for increased weakness and balance issues as well as slowing of s peech. Patient with no focal neurodeficits at bedside. She was afebrile and hemodynamically stable. Patient noted to be in rapid A. fib which is chronic for her. I feel her rate is likely higher here due to concern for current symptoms and situation. Labs been drawn and sent prior to my evaluation as she presented on day of high volume and acuity. Patient sent for CT/CTA additionally given prior history of TIAs and family concern for stroke. No acute pathology noted on CT/CTA. No evidence of acute infectious etiology. Given concern for worsening symptoms without clear etiology at this time and risk for TIA/CVA, we discussed additional inpatient evaluation and management. Patient and family verbalized understanding of all results and were in agreement with plan. Case discussed with hospitalist team. Impression & Plan Generalized weakness, Atrial fibrillation with rapid ventricular response, Elevated troponin Discharge Plan Visit Data Chief Complaint: Stroke/CVA Symptoms Stated Complaint: WEAKNESS, BREATHING HEAVY, HANDS TURNING BLUE ED Provider: Mirta Gordillo Discharge Problem: Generalized weakness, Atrial fibrillation with rapid ventricular response, Elevated troponin Patient Disposition: Admitted As Inpatient Condition: Good Discharge Instructions Interventions: ED Discharge Assessment Last Done: 04/05/22 06:17
[2022-04-05] MEDS: SODIUM CHLORIDE 0.9% 500 ML IV SCH ×2 (00:26→03:58)
[2022-04-05 00:56] LABS: Troponin I High Sensitivity 14.9 pg/ml (0-14)
[2022-04-05 01:15] LABS: Magnesium 2.1 mg/dl (1.7-2.4)
[2022-04-05] MEDS ORDERED: OPTIRAY 320 500ml IV ONE (01:22)
[2022-04-05 01:33] LABS: Appearance Urine Clear (Clear); Bacteria Urine Automated Negative (Negative); Bilirubin Urine Negative (Negative); Blood Urine Trace (Negative); Color Urine Yellow; Epithelial Cell Urine Auto >30 /lpf (0-5); Glucose Urine UA Negative (Negative); Ketones Urine 1+ (Negative); Leukocyte Esterase Urine Trace (Negative); Nitrite Urine Negative (Negative); Protein Urine 1+ (Negative); Specific Gravity Urine 1.021 (1.000-1.030); Urobilinogen Urine Negative (Negative)
[2022-04-05 02:00] LABS: RBC Urine Automated 0-4 /hpf (0-4)
[2022-04-05] MEDS ORDERED: APIXABAN 5 MG TABLET PO STA (03:49)
[2022-04-05] MEDS ORDERED: SODIUM CHLORIDE 0.9% 500 ML IV SCH (04:00)
[2022-04-05] MEDS ORDERED: SODIUM CHLORIDE 0.9% 500 ML IV ONE (04:16)
[2022-04-05] MEDS ORDERED: XOPENEX/ATROVENT 1.25mg/0.5MG NEB COMBO NEB STA (05:02)
[2022-04-05] MEDS ORDERED: METOPROLOL SUCC 50MG EXT REL TAB PO STA (05:07)
--- NOTE | 2022-04-05 05:15 | History & Physical Report ---
Date of Service April 05, 2022 Assessment & Plan (1) Rapid atrial fibrillation: Plan: Secondary to weakness following Zetia intolerance, hyperlipidemia/statin intolerance Patient on Eliquis for anticoagulation. Troponin elevation secondary to above chronic diastolic HF, patient on the dry side Hypertension, BP slightly elevated hx CVA/PVD valvular heart disease (mild MR, moderate to severe TR ) pulmonary hypertension nocturnal hypoxemia/mild MARGARET on nighttime O2 right breast cancer status post chemoradiation on anastrozole Rx/NHL status post radiation/pancreatic neuroendocrine tumor status post surgery -in remission Hyperglycemia, likely prediabetes, hemoglobin A1c of 5.9 2019 OBS PCU Facilitate home beta-eddy, gentle IV hydration Follow troponin Add Zetia to allergy/ADR list Update hemoglobin A1c PT OT eval DVT prophylaxis. Eliquis Full code Text document was generated using [employer] voice recognition software. It may contain grammatical or spelling errors. Kindly contact undersigned for clarification of any documentation item in question. History of Present Illness Chief Complaint: Shortness of breath, weakness, drug reaction Primary Care Provider: Anasatsia Reza, History obtained from patient and records. Medical history significant for chronic diastolic HF (EF 52%, TTE 2021), A. fib on Eliquis, CVA, PVD, valvular heart disease (mild MR, moderate to severe TR ), hypertension, hyperlipidemia/statin intolerance, pulmonary hypertension nocturnal hypoxemia/mild MARGARET on nighttime O2, right breast cancer status post chemoradiation on anastrozole Rx, NHL status post radiation, pancreatic neuroendocrine tumor status post surgery. Last confinement 2018 for CVA. 3 weeks ago patient noted throat burning and weakness after taking Zetia tablet. Patient seen at [facility] cardiology office on follow-up visit last week. Provider recommended resumption of Zetia Rx for hyperlipidemia. Yesterday, patient restarted Zetia Rx. Shortly after, patient noted increased generalized weakness, imbalance, and shortness of breath. No chest pain, no cough, no headache symptoms. Patient brought to the ER for evaluation. 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 Allergies Allergy/AdvReac Type Severity Reaction Status Date / Time ezetimibe AdvReac Intermediate Weakness Verified 04/05/22 05:12 chlorpheniramine AdvReac Mild "Antsy Verified 04/05/22 01:54 [From Chlor-Trimeton] Feeling" Home Medications Medication Instructions Recorded Confirmed Type calcium carbonate 600 mg-vitamin 1 tab PO DAILY 04/23/19 04/05/22 History D3 5 mcg (200 unit) tablet multivitamin 1 tab PO DAILY 04/23/19 04/05/22 History apixaban 5 mg tablet (Eliquis) 5 mg PO AMHS 10/17/19 04/05/22 History anastrozole 1 mg tablet (Arimidex) 1 mg PO DAILY 11/04/20 04/05/22 History furosemide 20 mg tablet (Lasix) 20 mg PO Q OTHER DAY 11/04/20 04/05/22 History potassium chloride 10 mEq 10 meq PO Q OTHER DAY 11/04/20 04/05/22 History capsule,extended release alendronate 70 mg tablet (Fosamax) 70 mg PO WK 04/05/22 04/05/22 History ezetimibe 10 mg tablet 10 mg PO QAM 04/05/22 04/05/22 History metoprolol succinate 100 mg 100 mg PO QAM 04/05/22 04/05/22 History tablet,extended release 24 hr vitamin B complex 1 tab PO DAILY 04/05/22 04/05/22 History Past Med/Surg History Medical History Arthritis Atrial fibrillation Breast cancer, right 03/09/2020 Cardiomyopathy CVA (cerebral vascular accident) Follicular lymphoma Diagnosed 01/28/19 - Left 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 Matthew on 04/22/2020 Family History Father , Passed age 88 of Kidney Cancer No problems noted. Mother , Passed age 83 of Alzheimers Disease No problems noted. Brother No problems noted. Sister ALL (acute lymphoblastic leukemia), Onset Age: 66 Now in remission Daughter No problems noted. Son No problems noted. 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 Feels Safe at Home: Yes Safety Concerns: Feels Safe At This Time Childhood Exposure to Second-Hand Smoke: Yes (Father Smoked in Home ) caffeine: Yes (4 cups of coffee/day ) Dental Care, Regularly: Yes Assistive Devices: Cane and Glasses Review of Systems Review of Systems: As per HPI, all other systems reviewed and negative Physical Exam Physical Exam: GENERAL: Slightly uncomfortable, minimal respiratory distress SKIN: Normal color, warm HEENT: Bespectacled, [place] palpebral conjunctivae, no ptosis, dry buccal mucosa NECK : Supple, no tenderness CHEST : Decreased breath sounds, no tenderness HEART : Irregular, tachycardic, systolic murmur ABDOMEN: Some distention, nontender EXTREMITIES : Bilateral LE swelling, no LE tenderness, no other conspicuous deformities noted NEUROLOGIC : Coherent, no facial asymmetry, gait and stance not assessed Results & Data Results & Data ([facility]) Vital Signs (Past 12 Hours) Vital Signs Temp Pulse Pulse Resp BP BP Pulse Ox 04/05/22 05:00 106 H 22 92 04/05/22 03:00 101 H 18 98 04/05/22 01:00 81 20 140/93 96 04/04/22 23:38 108 H 20 139/105 H 94 04/04/22 22:56 36.5 C 117 H 20 163/101 H 95 O2 Del Method 04/05/22 05:00 Room Air 04/05/22 03:00 Room Air 04/05/22 01:00 Room Air 04/04/22 23:38 Room Air 04/04/22 22:56 Room Air Laboratory Results Laboratory Results WBC 9.18 K/ul (4.8-10.8) 04/04/22 23:14 RBC 4.18 M/uL (3.93-5.22) 04/04/22 23:14 Hgb 14.4 g/dl (12.0-16.0) 04/04/22 23:14 Hct 42.7 % (34.1-44.9) 04/04/22 23:14 MCV 102.2 fL (80.0-100.0) H 04/04/22 23:14 MCH 34.4 pg (25.0-34.0) H 04/04/22 23:14 MCHC 33.7 g/dL (32.0-36.0) 04/04/22 23:14 RDW Std Deviation 57.0 fL (36.4-46.3) H 04/04/22 23:14 RDW Coeff of Pablo 15.2 % (11.5-14.5) H 04/04/22 23:14 Plt Count 180 K/uL (130-400) 04/04/22 23:14 MPV 11.6 fL (9.4-12.3) 04/04/22 23:14 Immature Gran % (Auto) 0.8 % 04/04/22 23:14 Neut % (Auto) 88.9 % 04/04/22 23:14 Lymph % (Auto) 2.5 % 04/04/22 23:14 [place] % (Auto) 5.2 % 04/04/22 23:14 Eos % (Auto) 2.4 % 04/04/22 23:14 Baso % (Auto) 0.2 % 04/04/22 23:14 Neut # (Auto) 8.16 K/uL (1.4-6.5) H 04/04/22 23:14 Lymph # (Auto) 0.23 K/uL (1.2-3.4) L 04/04/22 23:14 [place] # (Auto) 0.48 K/uL (0.24-0.82) 04/04/22 23:14 Eos # (Auto) 0.22 K/uL (0-0.50) 04/04/22 23:14 Baso # (Auto) 0.02 K/uL (0-0.2) 04/04/22 23:14 Immature Gran # (Auto) 0.07 K/uL (0.00-0.02) H 04/04/22 23:14 PT 12.0 Seconds (9.0-12.0) 04/04/22 23:14 INR 1.1 (0.9-1.1) 04/04/22 23:14 APTT 25.6 Seconds (21.0-31.0) 04/04/22 23:14 PTT Ratio 0.9 04/04/22 23:14 Sodium 136 mmol/L (136-145) 04/04/22 23:14 Potassium 4.1 mmol/L (3.5-5.1) 04/04/22 23:14 Chloride 100 mmol/L (98-107) 04/04/22 23:14 Carbon Dioxide 29 mmol/L (21-32) 04/04/22 23:14 Anion Gap 7 (3-11) 04/04/22 23:14 BUN 28 mg/dl (6-23) H 04/04/22 23:14 Creatinine 1.12 mg/dl (0.6-1.2) 04/04/22 23:14 Est Cr Clr Drug Dosing 38.7 ml/min 04/04/22 23:14 Est GFR ( Amer) 53.7 ml/min 04/04/22 23:14 Est GFR (Non-Af Amer) 46.4 ml/min 04/04/22 23:14 BUN/Creatinine Ratio 25.0 (10-20) H 04/04/22 23:14 Glucose 143 mg/dl (70-99(Fasting)) H 04/04/22 23:14 Calcium 9.8 mg/dl (8.5-10.1) 04/04/22 23:14 Magnesium 2.1 mg/dl (1.7-2.4) 04/04/22 23:14 Total Bilirubin 1.2 mg/dl (0.2-1.0) H 04/04/22 23:14 AST 26 U/L (13-39) 04/04/22 23:14 ALT 20 U/L (7-52) 04/04/22 23:14 Alkaline Phosphatase 41 U/L (34-104) 04/04/22 23:14 Troponin I High Sens 14.9 pg/ml (0-14) H 04/04/22 23:14 Total Protein 7.1 gm/dl (6.0-8.3) 04/04/22 23:14 Albumin 4.2 gm/dl (3.4-5.0) 04/04/22 23:14 Globulin 2.9 gm/dl (2.5-4.0) 04/04/22 23:14 Albumin/Globulin Ratio 1.4 (0.9-2) 04/04/22 23:14 TSH 0.903 uIu/ml (0.300-4.500) 04/04/22 23:14 Urine Color Yellow 04/04/22 23:30 Urine Appearance Clear (Clear) 04/04/22 23:30 Urine pH 6.0 (4.5-7.5) 04/04/22 23:30 Ur Specific [place] 1.021 (1.000-1.030) 04/04/22 23:30 Urine Protein 1+ (Negative) H 04/04/22 23:30 Urine Glucose (UA) Negative (Negative) 04/04/22 23:30 Urine Ketones 1+ (Negative) H 04/04/22 23:30 Urine Blood Trace (Negative) H 04/04/22 23:30 Urine Nitrite Negative (Negative) 04/04/22 23:30 Urine Bilirubin Negative (Negative) 04/04/22 23:30 Urine Urobilinogen Negative (Negative) 04/04/22 23:30 Ur Leukocyte Esterase Trace (Negative) H 04/04/22 23:30 Urine WBC (Auto) 10-30 /hpf (0-5) H 04/04/22 23:30 Urine RBC (Auto) 0-4 /hpf (0-4) 04/04/22 23:30 U Hyaline Cast (Auto) 5-10 /lpf (0-5) H 04/04/22 23:30 U Epithel Cells (Auto) >30 /lpf (0-5) H 04/04/22 23:30 Urine Bacteria (Auto) Negative (Negative) 04/04/22 23:30 Urine Yeast Present (None Prsent) A 04/04/22 23:[address] head initial read: Comparison is made to a prior CTAof the head dated 04/23/19. There is evidence for old right AQUARI[employer] SPECIALIST distribution infarct. No evidence for acute intra-cranial hemorrhage, midline shift, or mass-effect. No convincing evidence of newacute transcortical infarct. CTA head initial read: Dissection flap of left distal petrous and proximal cavernous segments of internal carotid artery, favored to be chronic. True and false lumens are similar opacified. origin of left posterior cerebral artery. As CTA neck initial read: No evidence of vascular occlusion, dissection, or hemodynamicallysignificant stenosis in the neck. Mild atherosclerotic plaque of the carotid bifurcationswithout hemodynamicallysignificant stenosis. Degenerative changes of spine. Post left parotidectomy. Chest x-ray as per my interpretation cardiomegaly EKG as per my interpretation : Rate 110, A. fib, LAD, LAFB, diffuse T wave flattening Code Status & VTE Plan VTE Prophylaxis Plan VTE Prophylaxis will be ordered: Yes
[2022-04-05] MEDS ORDERED: IPRATROPIUM BROMIDE NEB SOLN 0.02% 2.5 ML VIAL INH STA (05:16)
[2022-04-05] MEDS ORDERED: LEVALBUTEROL 1.25MG/0.5ML NEB INH STA (05:17)
[2022-04-05] MEDS ORDERED: PROMETHAZINE HCL 6.25 MG in SODIUM CHLORIDE 0.9% 50 ML IV PRN (06:17)
[2022-04-05] MEDS ORDERED: ACETAMINOPHEN 325 MG TAB PO PRN (06:17)
[2022-04-05 06:35] LABS: Basophils # (auto) 0.03 K/uL (0-0.2); Basophils % (auto) 0.3 %; Hematocrit (blood only) 37.3 % (34.1-44.9); Hemoglobin 12.8 g/dl (12.0-16.0); Immature Granulocytes # (auto) 0.11 K/uL (0.00-0.02); Lymphocytes % (auto) 3.7 %; Mean Corpuscular Hemoglobin 34.6 pg (25.0-34.0); Mean Corpuscular Hgb Conc 34.3 g/dL (32.0-36.0); Mean Corpuscular Volume 100.8 fL (80.0-100.0); Mean Platelet Volume 11.4 fL (9.4-12.3); Monocytes # (auto) 0.84 K/uL (0.24-0.82); Monocytes % (auto) 7.7 %; Neutrophils # (auto) 9.55 K/uL (1.4-6.5); Neutrophils % (auto) 87.3 %; Platelet Count 160 K/uL (130-400); RDW Coefficient of Variation 15.3 % (11.5-14.5); White Blood Count 10.93 K/ul (4.8-10.8)
[2022-04-05 07:03] LABS: Troponin I High Sensitivity 22.1 pg/ml (0-14)
[2022-04-05 07:11] LABS: BUN Creatinine Ratio 28.1 (10-20); Calcium 8.7 mg/dl (8.5-10.1); Creatinine Clr Calc Pharmacy 48.7 ml/min; Est GFR (African American) 70.9 ml/min; Est GFR (Non-African American) 61.2 ml/min; Potassium 3.8 mmol/L (3.5-5.1)
--- NOTE | 2022-04-05 07:21 | XRay Report ---
XR chest 1V portable CLINICAL HISTORY: Shortness of breath. COMPARISON STUDY: Chest CT July 08, 2021 and chest radiograph April 04, 2022. FINDINGS: There is no pneumothorax or pleural effusion. Moderate cardiomegaly is unchanged. There is no evidence for pulmonary edema. No consolidation to suggest pneumonia. There has been no significant change in appearance of the chest. IMPRESSION: No acute cardiopulmonary findings. Cardiomegaly. ACT 112: Negative or not required by law. Electronically signed by: Anderson Branch M.D. 04/05/2022 7:20 AM
--- NOTE | 2022-04-05 08:11 | CT Scan Report ---
CT OF THE HEAD WITHOUT CONTRAST CLINICAL HISTORY: weak, altered speech COMPARISON STUDY: Head CT April 23, 2019. MRI of the brain April 25, 2019. TECHNIQUE: Helical axial images of the head were obtained without IV contrast. Automated exposure con trol was utilized for the study. A dose lowering technique was utilized adhering to the principles o f ALARA. FINDINGS: No acute intracranial hemorrhage, midline shift or mass effect is present. Multiple old inf arcts are similar to prior head CT and MRI. The ventricular system is unremarkable. The basal cistern s are patent. No extra-axial collections are present. There are no findings to suggest acute dural si nus thrombosis or acute territorial infarct. No significant calvarial abnormalities are present. Visu alized portions of the sinuses and mastoid air cells are clear. IMPRESSION: 1. No acute intracranial findings. No significant change in appearance of brain. 2. Multiple old infarcts. ACT 112: Negative or not required by law. Electronically signed by: Anderson Branch M.D. 04/05/2022 8:09 AM
--- NOTE | 2022-04-05 08:17 | CT Scan Report ---
CTA ANGIOGRAPHY OF THE HEAD CLINICAL HISTORY: Weak, altered speech COMPARISON STUDY: MRI of the brain April 25, 2019. Head CT April 23, 2019. TECHNIQUE: Helical axial images of the head were obtained following uneventful intravenous administr ation of 112 cc of Optiray. Sagittal and coronal reconstructions were viewed as well as maximal inten sity projections on an independent 3-D workstation. Automated exposure control was utilized for the study. A dose lowering technique was utilized adhering to the principles of ALARA. CT DOSE: 1149.58 mGy.cm FINDINGS: Please note that the head CT will be reported separately. There is mild fusiform dilatation of the distal cervical left internal carotid artery. A dissection flap within the petrous and cavern ous portions of the left internal carotid artery is noted. In retrospect, this was present on MRI of April 25, 2019. Therefore, this is chronic. Both lumens are opacified. No central vessel occlusion is present. There is mild plaque within bilateral cavernous carotids without stenosis. No intracrani al aneurysm is identified. persistence of the bilateral posterior cerebral arteries is noted. N o central vessel occlusion is identified within the posterior circulation. Major dural sinuses are pa tent. IMPRESSION: 1. 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 2. No central vessel occlusion. No intracranial aneurysm. ACT 112: Negative or not required by law. Electronically signed by: Anderson Branch M.D. 04/05/2022 8:16 AM
[2022-04-05] MEDS: EZETIMIBE 10 MG TABLET PO SCH ×2 (08:56→09:29)
[2022-04-05] MEDS ORDERED: MULTIVITAMIN TAB PO SCH (09:00)
[2022-04-05] MEDS ORDERED: ANASTROZOLE 1 MG TAB PO SCH (09:00)
[2022-04-05] MEDS ORDERED: VITAMIN B COMPLEX TAB PO SCH (09:00)
--- NOTE | 2022-04-05 09:09 | XRay Report ---
XR chest 1V portable CLINICAL HISTORY: weakness COMPARISON STUDY: Chest CT July 08, 2021. FINDINGS: Patient is mildly rotated. Lung volumes are normal. Lungs are clear. There is no pneumothor ax or pleural effusion. Cardiomegaly is unchanged. Mediastinal contours are normal. There is no evide nce for pulmonary edema. IMPRESSION: No acute cardiopulmonary findings. Cardiomegaly. ACT 112: Negative or not required by law. Electronically signed by: Anderson Branch M.D. 04/05/2022 9:08 AM
--- NOTE | 2022-04-05 10:44 | CT Scan Report ---
CT angio neck with con CLINICAL HISTORY: weak, altered speech TECHNIQUE: CT angiography of the neck was performed following intravenous administration of iodinated contrast. Coronal and sagittal MIPS were obtained from the axial data set and were submitted for rev iew. Automated dose lowering techniques and/or adjustment according to patient size were utilized fo r this examination. All measurements were calculated based on NASCET criteria. Comparison: Comparison is made to prior ultrasound 04/23/2019 FINDINGS: Small thyroid nodules are seen which do not require follow-up by ACR criteria. Patient is incidentall y noted to be status post left parotidectomy. CTA Neck: Direct origin of the left vertebral artery from the aortic arch is seen. There is no signi ficant atherosclerotic plaque in the aortic arch or the origins of the innominate, left common caroti d, and left subclavian arteries. The common carotid, external carotid, cervical segments of the int ernal carotid arteries, and the cervical segments of the vertebral arteries are patent without hemody namically significant stenosis. The left vertebral artery is dominant. IMPRESSION: No occlusion, hemodynamically significant stenosis, or dissection in the major cervical arteries. Assessment of stenosis of the internal carotid arteries is based on NASCET criteria. ACT 112: Negative or not required by law. Electronically signed by: Yaakov Roman M.D. 04/05/2022 10:43 AM
[2022-04-05] MEDS ORDERED: FUROSEMIDE 20 MG TAB PO ONE (10:48)
[2022-04-05 10:52] LABS: Estimated Average Glucose 126 mg/dl
[2022-04-05] MEDS ORDERED: DICLOFENAC SOD 1% GEL 100 GM TUBE EXT SCH (14:00)
--- NOTE | 2022-04-05 14:05 | Discharge Summary ---
Date of Service April 05, 2022 Admission HPI Per Admitting Provider History obtained from patient and records. Medical history significant for chronic diastolic HF (EF 52%, TTE 2021), A. fib on Eliquis, CVA, PVD, valvular heart disease (mild MR, moderate to severe TR ), hypertension, hyperlipidemia/statin intolerance, pulmonary hypertension nocturnal hypoxemia/mild MARGARET on nighttime O2, right breast cancer status post chemoradiation on anastrozole Rx, NHL status post radiation, pancreatic neuroendocrine tumor status post surgery. Last confinement 2018 for CVA. 3 weeks ago patient noted throat burning and weakness after taking Zetia tablet. Patient seen at [facility] cardiology office on follow-up visit last week. Provider recommended resumption of Zetia Rx for hyperlipidemia. Yesterday, patient restarted Zetia Rx. Shortly after, patient noted increased generalized weakness, imbalance, and shortness of breath. No chest pain, no cough, no headache symptoms. Patient brought to the ER for evaluation. 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 fib on Eliquis, CVA, PVD, valvular heart disease, HTN, HLD/statin intolerance, pulmonary hypertension, nocturnal hypoxemia/mild MARGARET on nighttime O2, right breast cancer status post chemoradiation on anastrozole treatment, NHL status post radiation, pancreatic neuroendocrine tumor status post surgery presented to the ED 04/05 with intolerance to Zetia. Patient reports getting throat burning and weakness after taking this tablet 3 weeks ago. Patient was seen as [facility] cardiology office last week and recommended to resume this tablet for hyperlipidemia which patient started the day prior to arrival and shortly after that he started feeling generalized weakness/imbalance and shortness of breath. Zetia has been added to allergy list. Patient already started feeling better by morning, electrolytes WNL, CT head/CTA head and neck/CXR with no acute findings, heart rate under control, PT/OT evaluated the patient and cleared her for discharge to home per RN. During bedside exam, patient started feeling significantly better and was wanting to go home today. Patient to continue rest of the medications as prior. Patient to follow-up with PCP in a week time upon discharge. Patient being discharged to home with family support with following instruction at the point of discharge: Follow-up with your primary care physician within a week time and likely you will need blood test CBC/CMP/magnesium level/CPK level. You suffered weakness after taking Zetia, discharge has been added to your allergy list, advise to avoid this drug in the future. Follow-up with your PCP for ongoing management of her hyperlipidemia. For your neck pain likely secondary to abnormal position during sleep, you can use [id number] Tylenol or diclofenac gel as needed up to 3 times a day. Take your medications as prescribed. Home Health Attestation I certify that this patient is under my care and that I, or a physicians primary teaching assistant working with me, had a face to-face encounter that meets the home health [id number] encounter requirements with this patient. The encounter with the patient was in whole, or in part, for the following medical condition, which is the primary reason for home health care (list medical condition): I certify that, based on my findings, the following services are medically necessary home health services: My clinical findings support the need for the above services because: Further, I certify that my clinical findings support that this patient is homebound (i.e. absences from home require considerable and taxing effort and are for medical reasons or mu-ism services or infrequently or of short duration when for other reasons) because: Certification for Home Health Services: Based on the above findings, I certify that this patient is confined to the home and needs intermittent mcfp care, physical therapy and/or speech therapy or continues to need occupational therapy. The patient is under my care, and I have initiated the establishment of the plan of care. This patient will be followed by a physician who will periodically review the plan of care. Total Time Total Time Spent Total Time Spent (In Minutes): 45 Discharge Plan Discharge Items Patient Disposition: Home - Self-Care Reason For Visit: RAPID AF Discharge Diagnosis: Weakness secondary to Zetia intolerance Rapid atrial fibrillation Activity: Resume your previous activity Non-emergency contact: Primary Care Provider Call non-emergency contact if: you have any medication questions Follow-up/Referrals: Anastasia Reza, [Primary Care Provider] - Diet: Heart Healthy Addtl Attending Provider Instructions: Follow-up with your primary care physician within a week time and likely you w ill need blood test CBC/CMP/magnesium level/CPK level. You suffered weakness after taking Zetia, discharge has been added to your allergy list, advise to avoid this drug in the future. Follow-up with your PCP for ongoing management of her hyperlipidemia. For your neck pain likely secondary to abnormal position during sleep, you can use [id number] Tylenol or diclofenac gel as needed up to 3 times a day. Take your medications as prescribed. Pending Studies at Discharge: Yes (Admitting urine culture.) Stand-Alone Forms: My [facility] [employer], Smoking Cessation Medications and DC Order Prescriptions: New diclofenac sodium [Voltaren Arthritis Pain] 1 % Gel 2 g EXT TID 3 Days Qty: 100 0RF Continued Eliquis 5 mg tablet 5 mg PO AMHS anastrozole [Arimidex] 1 mg tablet 1 mg PO DAILY furosemide [Lasix] 20 mg tablet 20 mg PO Q OTHER DAY potassium chloride 10 mEq capsule, extended release 10 meq PO Q OTHER DAY multivitamin Tablet 1 tab PO DAILY calcium carbonate-vitamin D3 600 mg(1,500mg) -200 unit Tablet 1 tab PO DAILY metoprolol succinate 100 mg Tablet Extended Release 24 Hr 100 mg PO QAM alendronate [Fosamax] 70 mg Tablet 70 mg PO WK vitamin B complex Tablet 1 tab PO DAILY Discontinued ezetimibe 10 mg Tablet 10 mg PO QAM Discharge Orders: Discharge Order (Routine); Ordered 04/05/22 Ordered By: Goran Oh Admission Data Admit Date/Time: 04/05/22 05:09 Attending Provider: Goran Oh Admit Provider: Joe Lai Primary Care Provider: Anastasia Reza Other Providers: Joe Lai
[2022-04-05 14:29] VITALS: BP 111/68; PULSE 84; TEMP 97.9; O2SAT 94
--- NOTE | 2022-04-05 16:38 | Electrocardiogram Report ---
Test Reason : Blood Pressure : / mmHG Vent. Rate : 111 BPM Atrial Rate : 267 BPM P-R Int : 000 ms QRS Dur : 088 ms QT Int : 296 ms P-R-T Axes : 000 -19 115 degrees QTc Int : 402 ms Poor data quality, interpretation may be adversely affected Atrial fibrillation with rapid ventricular response with premature ventricular or aberrantly conducte d complexes Nonspecific ST and T wave abnormality Abnormal ECG When compared with ECG of 25-APR-2019 06:40, Atrial fibrillation has replaced Sinus rhythm Vent. rate has increased BY 47 BPM Nonspecific T wave abnormality, worse in Inferior leads Confirmed by Jose Perkins ([id number]) on 04/05/2022 4:38:05 PM Referred By: REFERRED SELF Confirmed By:Jose Perkins
[2022-04-05] MEDS ORDERED: APIXABAN 5 MG TABLET PO SCH (21:00)
[2022-04-06] MEDS ORDERED: METOPROLOL SUCC 50MG EXT REL TAB PO SCH (09:00)
== END 2022-04-05 14:26 | disposition home or self-care (01) ==
LOC: ED 22:52 → EDINP 22:52 → SUATTDRO 04-05 05:09 → EDINP 04-05 06:17

== ENCOUNTER 2022-09-12 15:02 | Inpatient (IN) ==
--- NOTE | 2022-09-12 15:34 | ED Triage Note ---
Date of Service September 12, 2022 History of Present Illness This patient was briefly evaluated while in triage. An abbreviated physical exam was performed. This patient is a 82-year-old Female who presents to the ED for evaluation of weakness and hard time walking. She went to urgent care, and was referred to the ER. Hx of TIA's. On Elliquis and ASA. Physical Exam Limited Triage Exam: VITALS: Vitals are noted on the nurse's note and reviewed by myself. Vital signs stable. GENERAL: White female in NAD seated in wheelchair. She is answering questions appropriately. HEART: Regular rate and rhythm without murmurs gallops or rubs. LUNGS: Clear to auscultation bilaterally without wheezes, rales or rhonchi. Initial orders for labs and / or imaging were placed and patient was placed in the waiting area until a bed is available. Please see further documentation for the full ED course. MDM / Impression Impression Impression: Weakness, Ambulatory dysfunction
--- NOTE | 2022-09-12 15:54 | Emergency Department Note ---
Impression & Plan Weakness, Ambulatory dysfunction ED Provider Note NAME: FAYE LIND AGE: 82 SEX: F : 1940 ARRIVES VIA: Walk-In INFORMANT: Patient ED PROVIDER(S): Derek Hamilton DO CHIEF COMPLAINT: weakness and unsteady on feet HPI: Patient is an 82-year-old female with a past medical history of A-fib, elevated troponin, lymphoma and breast cancer that presents to the ER for yvette zarate. Patient notes that she feels very weak. She has been physically feeling weak for over a month. She notes been getting progressively worse. Over the past 24 hours today she feels very unsteady on her feet. She is having trouble getting around. She can barely even stand up with her walker. She is also having trouble just getting out of bed. She denies any headache or change in vision. No focal weakness in the arms or legs. No chest pain or shortness of breath. No nausea, vomiting or diarrhea. No dysuria, urgency or frequency. PAST MEDICAL HISTORY:See Below PAST SURGICAL HISTORY:See Below FAMILY HISTORY:See Below SOCIAL HISTORY:See Below HOME MEDICATIONS:See Below ALLERGIES:See Below VITALS:See Below PHYSICAL EXAMINATION: GENERAL: Sitting up in bed, alert, well appearing, well nourished, no distress, non-toxic EYE EXAM: normal conjunctiva. PERRL and EOM's grossly intact. OROPHARYNX: no exudate, no erythema, lips, buccal mucosa, and tongue normal and mucous membranes are moist NECK: supple, no nuchal rigidity, no adenopathy, non-tender LUNGS: Clear to auscultation. Normal chest wall mechanics HEART: no murmurs, S1 normal and S2 normal ABDOMEN: abdomen soft, non-tender, normo-active bowel sounds, no masses, no rebound or guarding. UPPER EXTREMITIES: upper extremities are grossly normal. LOWER EXTREMITIES: No pitting edema. NEURO EXAM: Normal sensorium, cranial nerves II-XII grossly intact, normal speech, no gross weakness of arms, no gross weakness of legs. MEDICAL DECISION MAKING: Patient is a 2-year-old female who presents ER for the above-stated complaint. IV was established blood work was obtained. External records were reviewed. Labs show mild leukopenia 4.6 thousand. No significant anemia. INR 1.2. BMP was unremarkable. LFTs bilirubin and troponin was negative. UA was contaminated. She has no urinary symptoms. She completed neurologically intact. She does have pitting edema in the lower extremities. She admits to feeling very weak and rundown. No other complaints. Completely benign abdominal exam. She is updated bedside. Discussed with the hospitalist that she is having trouble getting around for ambulatory dysfunction and possible placement. Discussed with Dr. Arteaga for further evaluation management and treatment Triage Nursing notes reviewed. Limited review of prior medical records performed Vital Signs: reviewed and remarkable for no significant abnormalities Differential diagnosis: Infection, dehydration, metabolic abnormality, hypo/hyperglycemia, electrolyte disturbance, anemia, hypoxia, cardiac sources, intracerebral event, toxicologic, neurologic, as well as other pathologies. ER treatment provided: See below Diagnostics interpreted by me include EKG and cardiac monitoring as listed below: -Cardiac Monitoring: An order was placed for continuous cardiac monitoring. The monitor shows a rate of 90 with sinus rhythm. -ECG: A-fib rate of 90 Normal axis No PVCs Poor baseline in V1 QTc 474 -Laboratory studies:Interpreted by me as stated above in MDM and shown below. 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 Mathtew on 04/22/2020 Family History Father , Passed age 88 of Kidney Cancer No problems noted. Mother , Passed age 83 of Alzheimers Disease No problems noted. Brother No problems noted. Sister ALL (acute lymphoblastic leukemia), Onset Age: 66 Now in remission Daughter No problems noted. Son No problems noted. 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 Feels Safe at Home: Yes Childhood Exposure to Second-Hand Smoke: Yes (Father Smoked in Home ) caffeine: Yes (4 cups of coffee/day ) Dental Care, Regularly: Yes Assistive Devices: Cane Allergies Allergies Allergy/AdvReac Type Severity Reaction Status Date / Time ezetimibe AdvReac Intermediate Weakness Verified 05/18/22 13:55 chlorpheniramine AdvReac Mild "Antsy Verified 05/18/22 13:55 [From Chlor-Trimeton] Feeling" Home Meds Home Medications Medication Instructions Recorded Confirmed calcium carbonate 600 mg-vitamin 1 tab PO DAILY 04/23/19 09/12/22 D3 5 mcg (200 unit) tablet multivitamin 1 tab PO DAILY 04/23/19 09/12/22 apixaban 5 mg tablet (Eliquis) 5 mg PO AMHS 10/17/19 09/12/22 anastrozole 1 mg tablet (Arimidex) 1 mg PO DAILY 11/04/20 09/12/22 alendronate 70 mg tablet (Fosamax) 70 mg PO WK 04/05/22 09/12/22 metoprolol succinate 100 mg 100 mg PO QAM 04/05/22 09/12/22 tablet,extended release 24 hr vitamin B complex 1 tab PO DAILY 04/05/22 09/12/22 furosemide 20 mg tablet (Lasix) 60 mg PO DAILY 05/18/22 09/12/22 spironolactone 25 mg tablet 12.5 mg PO 5XWK 05/18/22 09/12/22 aspirin 81 mg tablet,delayed 81 mg PO DAILY 09/12/22 09/12/22 release pravastatin 20 mg tablet 20 mg PO HS 09/12/22 09/12/22 Results & Data (ED) Vital Signs Vital Signs - 24 hr 09/12/22 15:32 09/12/22 16:06 09/12/22 16:16 Temperature 36.6 C Temperature Source Temporal Artery Scan Pulse Rate 90 88 Pulse Rate [Right Finger] 92 H Respiratory Rate 20 20 Respiratory Effort / Characteristics Non-Labored Non-Labored Respiratory Depth Normal Normal Blood Pressure 102/73 Blood Pressure [Right Arm] 120/94 Blood Pressure Mean 82 Blood Pressure Mean [Right Arm] 102 Pulse Oximetry 92 96 Oxygen Delivery Method Room Air Room Air Room Air Sepsis Recent Fever Within 48 Hours No Sepsis New/Unexplained Change in Mental Status No Sepsis Action Taken by Nursing No Action Required 09/12/22 16:17 09/12/22 17:57 Temperature Temperature Source Pulse Rate 88 Pulse Rate [Right Finger] 86 Respiratory Rate 16 Respiratory Effort / Characteristics Non-Labored Respiratory Depth Normal Blood Pressure Blood Pressure [Right Arm] 120/89 Blood Pressure Mean Blood Pressure Mean [Right Arm] 99 Pulse Oximetry 97 Oxygen Delivery Method Room Air Sepsis Recent Fever Within 48 Hours Sepsis New/Unexplained Change in Mental Status Sepsis Action Taken by Nursing Laboratory Data 09/12/22 15:46 09/12/22 15:46 Lab Results 09/12/22 09/12/22 09/12/22 Range/Units 15:46 15:46 15:46 WBC 4.64 L (4.8-10.8) K/ul RBC 4.03 L (4.20-5.40) M/uL Hgb 12.7 (12.0-16.0) g/dl Hct 38.8 (37.0-47.0) % MCV 96.3 (80.0-100.0) fL MCH 31.5 (25.0-34.0) pg MCHC 32.7 (32.0-36.0) g/dL RDW Std Deviation 57.4 H (36.4-46.3) fL RDW Coeff of Pablo 16.2 H (11.5-14.5) % Plt Count 242 (130-400) K/uL MPV 10.8 (9.4-12.4) fL Immature Gran % (Auto) 0.4 % Neut % (Auto) 66.2 % Lymph % (Auto) 17.5 % Mobile % (Auto) 13.4 % Eos % (Auto) 1.9 % Baso % (Auto) 0.6 % Neut # (Auto) 3.07 (1.40-6.50) K/uL Lymph # (Auto) 0.81 L (1.2-3.4) K/uL Mobile # (Auto) 0.62 H (0.11-0.59) K/uL Eos # (Auto) 0.09 (0-0.50) K/uL Baso # (Auto) 0.03 (0-0.2) K/uL Immature Gran # (Auto) 0.02 (0.01-0.20) K/uL PT (9.0-12.0) Seconds INR (0.9-1.1) APTT (21.0-31.0) Seconds PTT Ratio Sodium 141 (136-145) mmol/L Potassium 3.9 (3.5-5.1) mmol/L Chloride 100 (98-107) mmol/L Carbon Dioxide 34 H (21-32) mmol/L Anion Gap 7 (3-11) BUN 27 H (6-23) mg/dl Creatinine 1.07 (0.6-1.2) mg/dl Est Cr Clr Drug Dosing Not Reportable Est GFR ( Amer) 56.4 ml/min Est GFR (Non-Af Amer) 48.6 ml/min BUN/Creatinine Ratio 25.2 H (10-20) Glucose 92 (70-99(Fasting)) mg/dl Calcium 9.1 (8.6-10.3) mg/dl Magnesium 2.3 (1.7-2.4) mg/dl Total Bilirubin 0.8 (0.2-1.0) mg/dl AST 21 (13-39) U/L ALT 13 (7-52) U/L Alkaline Phosphatase 42 (34-104) U/L Troponin I High Sens 8.2 (0-14) pg/ml Total Protein 7.2 (6.0-8.3) gm/dl Albumin 3.6 (3.4-5.0) gm/dl Globulin 3.6 (2.5-4.0) gm/dl Albumin/Globulin Ratio 1.0 (0.9-2) Urine Color Urine Appearance (Clear) Urine pH (4.5-7.5) Ur Specific [place] (1.000-1.030) Urine Protein (Negative) Urine Glucose (UA) (Negative) Urine Ketones (Negative) Urine Blood (Negative) Urine Nitrite (Negative) Urine Bilirubin (Negative) Urine Urobilinogen (Negative) Ur Leukocyte Esterase (Negative) Urine WBC (Auto) (0-5) /hpf Urine RBC (Auto) (0-4) /hpf U Hyaline Cast (Auto) (0-5) /lpf U Epithel Cells (Auto) (0-5) /lpf Urine Bacteria (Auto) (Negative) Lyme Disease IgG Ab Negative (Negative) Lyme Disease IgM Ab Negative (Negative) SARS-CoV-2, RNA, NAAT (NEGATIVE) 09/12/22 09/12/22 09/12/22 Range/Units 15:46 16:15 17:35 WBC (4.8-10.8) K/ul RBC (4.20-5.40) M/uL Hgb (12.0-16.0) g/dl Hct (37.0-47.0) % MCV (80.0-100.0) fL MCH (25.0-34.0) pg MCHC (32.0-36.0) g/dL RDW Std Deviation (36.4-46.3) fL RDW Coeff of Pablo (11.5-14.5) % Plt Count (130-400) K/uL MPV (9.4-12.4) fL Immature Gran % (Auto) % Neut % (Auto) % Lymph % (Auto) % Mobile % (Auto) % Eos % (Auto) % Baso % (Auto) % Neut # (Auto) (1.40-6.50) K/uL Lymph # (Auto) (1.2-3.4) K/uL Mobile # (Auto) (0.11-0.59) K/uL Eos # (Auto) (0-0.50) K/uL Baso # (Auto) (0-0.2) K/uL Immature Gran # (Auto) (0.01-0.20) K/uL PT 12.8 H (9.0-12.0) Seconds INR 1.2 H (0.9-1.1) APTT 30.7 (21.0-31.0) Seconds PTT Ratio 1.1 Sodium (136-145) mmol/L Potassium (3.5-5.1) mmol/L Chloride (98-107) mmol/L Carbon Dioxide (21-32) mmol/L Anion Gap (3-11) BUN (6-23) mg/dl Creatinine (0.6-1.2) mg/dl Est Cr Clr Drug Dosing Est GFR ( Amer) ml/min Est GFR (Non-Af Amer) ml/min BUN/Creatinine Ratio (10-20) Glucose (70-99(Fasting)) mg/dl Calcium (8.6-10.3) mg/dl Magnesium (1.7-2.4) mg/dl Total Bilirubin (0.2-1.0) mg/dl AST (13-39) U/L ALT (7-52) U/L Alkaline Phosphatase (34-104) U/L Troponin I High Sens (0-14) pg/ml Total Protein (6.0-8.3) gm/dl Albumin (3.4-5.0) gm/dl Globulin (2.5-4.0) gm/dl Albumin/Globulin Ratio (0.9-2) Urine Color Yellow Urine Appearance Clear (Clear) Urine pH 7.0 (4.5-7.5) Ur Specific [place] 1.008 (1.000-1.030) Urine Protein Negative (Negative) Urine Glucose (UA) Negative (Negative) Urine Ketones Negative (Negative) Urine Blood Negative (Negative) Urine Nitrite Negative (Negative) Urine Bilirubin Negative (Negative) Urine Urobilinogen Negative (Negative) Ur Leukocyte Esterase 2+ H (Negative) Urine WBC (Auto) 10-30 H (0-5) /hpf Urine RBC (Auto) 0-4 (0-4) /hpf U Hyaline Cast (Auto) 0 (0-5) /lpf U Epithel Cells (Auto) >30 H (0-5) /lpf Urine Bacteria (Auto) Negative (Negative) Lyme Disease IgG Ab (Negative) Lyme Disease IgM Ab (Negative) SARS-CoV-2, RNA, NAAT NEGATIVE (NEGATIVE) Imaging Data Radiologist's Impression: Head CT 09/12/22 15:34 CT head/brain wo con CLINICAL HISTORY: weakness Technique: Contiguous axial CT images of the head were acquired from the base of the skull to the vertex without intravenous contrast administration. Images were viewed in brain, subdural and bone windows. Automated dose lowering techniques and/or adjustment according to patient size were utilized for this exam. Comparison: Comparison is made to CT head 04/05/2022 Findings: The ventricles, basal cisterns, and cerebral sulci are normal. There is no acute intracranial hemorrhage or evidence of acute territorial infarction. Neither mass effect, shift of the midline structures, nor abnormal extra-axial fluid collections are shown. Focal encephalomalacia is in the right parietal and occipital regions. Imaged portions of the paranasal sinuses and mastoid air cells are clear. The orbits appear normal. There are no acute fractures of the calvaria or scalp swelling. Impression: No acute intracranial hemorrhage, no evidence of acute territorial infarction or other acute intracranial disease process. 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 ACT 112: Negative or not required by law. Electronically signed by: Yaakov Roman M.D. 09/12/2022 4:07 PM Discharge Plan Visit Data Chief Complaint: Weakness Stated Complaint: WEAK, WANTS CT SCAN ED Provider: Derek Hamilton Discharge Problem: Weakness, Ambulatory dysfunction Forms Stand Alone Forms: [facility] Prescriptions Prescriptions: No Action Eliquis 5 mg tablet 5 mg PO AMHS anastrozole [Arimidex] 1 mg tablet 1 mg PO DAILY furosemide [Lasix] 20 mg tablet 60 mg PO DAILY spironolactone 25 mg tablet 12.5 mg PO 5XWK Rx Instructions: Monday, Monday, , Monday, and Monday multivitamin Tablet 1 tab PO DAILY calcium carbonate-vitamin D3 600 mg(1,500mg) -200 unit Tablet 1 tab PO DAILY metoprolol succinate 100 mg Tablet Extended Release 24 Hr 100 mg PO QAM alendronate [Fosamax] 70 mg Tablet 70 mg PO WK Rx Instructions: monday vitamin B complex Tablet 1 tab PO DAILY aspirin 81 mg Tablet,Delayed Release (Dr/Ec) 81 mg PO DAILY pravastatin 20 mg tablet 20 mg PO HS Referrals Referrals: Anastasia Reza DO [Primary Care Provider] -
--- NOTE | 2022-09-12 16:09 | CT Scan Report ---
CT head/brain wo con CLINICAL HISTORY: weakness Technique: Contiguous axial CT images of the head were acquired from the base of the skull to the vincent spencer without intravenous contrast administration. Images were viewed in brain, subdural and bone [facility]. Automated dose lowering techniques and/or adjustment according to patient size were utilized for this exam. Comparison: Comparison is made to CT head 04/05/2022 Findings: The ventricles, basal cisterns, and cerebral sulci are normal. There is no acute intracranial hemorrh age or evidence of acute territorial infarction. Neither mass effect, shift of the midline structures , nor abnormal extra-axial fluid collections are shown. Focal encephalomalacia is in the right parie jonas and occipital regions. Imaged portions of the paranasal sinuses and mastoid air cells are clear. The orbits appear normal. There are no acute fractures of the calvaria or scalp swelling. Impression: No acute intracranial hemorrhage, no evidence of acute territorial infarction or other acute intracra nial disease process. 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 ACT 112: Negative or not required by law. Electronically signed by: Yaakov Roman M.D. 09/12/2022 4:07 PM
[2022-09-12 16:15] LABS: Basophils # (auto) 0.03 K/uL (0-0.2); Basophils % (auto) 0.6 %; Eosinophils # (auto) 0.09 K/uL (0-0.50); Eosinophils % (auto) 1.9 %; Hematocrit (blood only) 38.8 % (37.0-47.0); Hemoglobin 12.7 g/dl (12.0-16.0); Immature Granulocytes # (auto) 0.02 K/uL (0.01-0.20); Immature Granulocytes % (auto) 0.4 %; Lymphocytes # (auto) 0.81 K/uL (1.2-3.4); Lymphocytes % (auto) 17.5 %; Mean Corpuscular Hemoglobin 31.5 pg (25.0-34.0); Mean Corpuscular Hgb Conc 32.7 g/dL (32.0-36.0); Mean Corpuscular Volume 96.3 fL (80.0-100.0); Mean Platelet Volume 10.8 fL (9.4-12.4); Monocytes # (auto) 0.62 K/uL (0.11-0.59); Monocytes % (auto) 13.4 %; Neutrophils # (auto) 3.07 K/uL (1.40-6.50); Neutrophils % (auto) 66.2 %; Platelet Count 242 K/uL (130-400); RDW Coefficient of Variation 16.2 % (11.5-14.5); RDW Standard Deviation 57.4 fL (36.4-46.3); Red Blood Count 4.03 M/uL (4.20-5.40); White Blood Count 4.64 K/ul (4.8-10.8)
[2022-09-12 16:30] LABS: Alanine Aminotransferase 13 U/L (7-52); Albumin Level 3.6 gm/dl (3.4-5.0); Alkaline Phosphatase 42 U/L (34-104); Anion Gap 7 (3-11); Aspartate Aminotransferase 21 U/L (13-39); BUN Creatinine Ratio 25.2 (10-20); Bilirubin,Total 0.8 mg/dl (0.2-1.0); Blood Urea Nitrogen 27 mg/dl (6-23); Calcium 9.1 mg/dl (8.6-10.3); Carbon Dioxide 34 mmol/L (21-32); Chloride 100 mmol/L (98-107); Est GFR (African American) 56.4 ml/min; Est GFR (Non-African American) 48.6 ml/min; Globulin 3.6 gm/dl (2.5-4.0); Glucose 92 mg/dl (70-99(Fasting)); Magnesium 2.3 mg/dl (1.7-2.4); Potassium 3.9 mmol/L (3.5-5.1); Sodium 141 mmol/L (136-145); Total Protein 7.2 gm/dl (6.0-8.3)
[2022-09-12 16:36] LABS: Troponin I High Sensitivity 8.2 pg/ml (0-14)
[2022-09-12 16:39] LABS: INR 1.2 (0.9-1.1); Partial Thromboplastin Ratio 1.1; Partial Thromboplastin Time 30.7 Seconds (21.0-31.0); Prothrombin Time 12.8 Seconds (9.0-12.0)
[2022-09-12 16:42] LABS: Appearance Urine Clear (Clear); Bacteria Urine Automated Negative (Negative); Bilirubin Urine Negative (Negative); Blood Urine Negative (Negative); Cast Urine Automated 0 /lpf (0-5); Color Urine Yellow; Epithelial Cell Urine Auto >30 /lpf (0-5); Glucose Urine UA Negative (Negative); Ketones Urine Negative (Negative); Leukocyte Esterase Urine 2+ (Negative); Nitrite Urine Negative (Negative); Protein Urine Negative (Negative); RBC Urine Automated 0-4 /hpf (0-4); Specific Gravity Urine 1.008 (1.000-1.030); Urobilinogen Urine Negative (Negative)
[2022-09-12 16:52] LABS: Lyme Ab IgG w/WB Rflx Negative (Negative); Lyme Ab IgM w/WB Rflx Negative (Negative)
--- NOTE | 2022-09-12 17:13 | Electrocardiogram Report ---
Test Reason : Blood Pressure : / mmHG Vent. Rate : 090 BPM Atrial Rate : 000 BPM P-R Int : 000 ms QRS Dur : 086 ms QT Int : 388 ms P-R-T Axes : 000 -20 -35 degrees QTc Int : 474 ms Atrial fibrillation with premature ventricular or aberrantly conducted complexes Nonspecific ST abnormality Abnormal ECG When compared with ECG of 04-APR-2022 23:08, Nonspecific T wave abnormality, improved in Lateral leads Confirmed by Jose L Lima ([id number]) on 09/12/2022 5:13:28 PM Referred By: Confirmed By:Arturo Lima
[2022-09-12] MEDS ORDERED: Patient's HEIGHT &/or WEIGHT Needed SCH (18:00)
--- NOTE | 2022-09-12 18:05 | History & Physical Report ---
Date of Service September 12, 2022 History of Present Illness Chief Complaint: generalized weakness Primary Care Provider: Anastasia Reza DO Allergies Allergy/AdvReac Type Severity Reaction Status Date / Time ezetimibe AdvReac Intermediate Weakness Verified 05/18/22 13:55 chlorpheniramine AdvReac Mild "Antsy Verified 05/18/22 13:55 [From Chlor-Trimeton] Feeling" Home Medications Medication Instructions Recorded Confirmed Type calcium carbonate 600 mg-vitamin 1 tab PO DAILY 04/23/19 05/18/22 History D3 5 mcg (200 unit) tablet multivitamin 1 tab PO DAILY 04/23/19 05/18/22 History apixaban 5 mg tablet (Eliquis) 5 mg PO AMHS 10/17/19 05/18/22 History anastrozole 1 mg tablet (Arimidex) 1 mg PO DAILY 11/04/20 05/18/22 History alendronate 70 mg tablet (Fosamax) 70 mg PO WK 04/05/22 05/18/22 History metoprolol succinate 100 mg 100 mg PO QAM 04/05/22 05/18/22 History tablet,extended release 24 hr vitamin B complex 1 tab PO DAILY 04/05/22 05/18/22 History furosemide 20 mg tablet (Lasix) 20 mg PO DAILY 05/18/22 05/18/22 History spironolactone 25 mg tablet 12.5 mg PO DAILY 05/18/22 05/18/22 History Past Med/Surg History Medical History Arthritis Atrial fibrillation Breast cancer, right 03/09/2020 Cardiomyopathy CVA (cerebral vascular accident) Follicular lymphoma Diagnosed 01/28/19 - Left 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 Matthew on 04/22/2020 Family History Father , Passed age 88 of Kidney Cancer No problems noted. Mother , Passed age 83 of Alzheimers Disease No problems noted. Brother No problems noted. Sister ALL (acute lymphoblastic leukemia), Onset Age: 66 Now in remission Daughter No problems noted. Son No problems noted. 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
--- NOTE | 2022-09-12 18:50 | History & Physical Report ---
Date of Service September 12, 2022 Assessment & Plan (1) Generalized weakness: Plan 82-year-old woman with history of A-fib on Eliquis, breast cancer status postradiation on anastrozole, chronic diastolic heart failure, CVAs, peripheral vascular disease, valvular heart disease, hypertension, pulmonary hypertension, nocturnal hypoxemia on nighttime oxygen, NHL s/p radiation, pancreatic neuroendocrine tumor status post surgery who presented with worsening generalized weakness. This has been chronic but worsened recently No focal deficits CT head showed old infarcts. No acute abnormalities Blood work grossly unremarkable UA noted 2+ leuk esterase, 10-30 WBC, negative bacteria. Low suspicion for UTI at this time in view of history. Will follow up urine culture Get PT/OT eval Patient stated she is open to placement if needed but will like to see how she does with PT/OT She gets home PT once a week at home Fall precautions Chronic diastolic heart failure: Continue lasix and spironolactone Has chronic leg edema per patient. DALILA stocking Afib: Continue apixaban Afib is rate controlled Continue home dose of metoprolol succinate H/o Breast ca Continue anastrazole Continue Vit D-Ca DVT ppx - Apixaban Code status - Full I spent a total of 75 minutes coordinating, documenting and providing care for this patient excluding time spent in performance of separately billed services History of Present Illness Chief Complaint: Generalized weakness Primary Care Provider: Anastasia Reza, 82-year-old woman with history of A-fib on Eliquis, breast cancer status postradiation on anastrozole, chronic diastolic heart failure, CVAs, peripheral vascular disease, valvular heart disease, hypertension, pulmonary hypertension, nocturnal hypoxemia on nighttime oxygen, NHL s/p radiation, pancreatic neuroendocrine tumor status post surgery who presented with worsening generalized weakness. Patient reports that she has been generally weak over time but over the past day or 2 has progressively worsened. Denied any focal weakness, focal numbness, blurry vision, headache or dizziness Denies fever, chills, nausea, vomiting, diarrhea. Denies any dysuria, hematuria. Reports frequency usually after taking her home Lasix and no change in diet. Denies cough, chest pain, shortness of breath. Ambulates with a walker. Reported a fall on her buttock some weeks ago in the kitchen with dizziness. Denied any head trauma at the time or loss of consciousness. Allergies Allergy/AdvReac Type Severity Reaction Status Date / Time ezetimibe AdvReac Intermediate Weakness Verified 05/18/22 13:55 chlorpheniramine AdvReac Mild "Antsy Verified 05/18/22 13:55 [From Chlor-Trimeton] Feeling" Home Medications Medication Instructions Recorded Confirmed Type calcium carbonate 600 mg-vitamin 1 tab PO DAILY 04/23/19 09/12/22 History D3 5 mcg (200 unit) tablet multivitamin 1 tab PO DAILY 04/23/19 09/12/22 History apixaban 5 mg tablet (Eliquis) 5 mg PO AMHS 10/17/19 09/12/22 History anastrozole 1 mg tablet (Arimidex) 1 mg PO DAILY 11/04/20 09/12/22 History alendronate 70 mg tablet (Fosamax) 70 mg PO WK 04/05/22 09/12/22 History metoprolol succinate 100 mg 100 mg PO QAM 04/05/22 09/12/22 History tablet,extended release 24 hr vitamin B complex 1 tab PO DAILY 04/05/22 09/12/22 History furosemide 20 mg tablet (Lasix) 60 mg PO DAILY 05/18/22 09/12/22 History spironolactone 25 mg tablet 12.5 mg PO 5XWK 05/18/22 09/12/22 History aspirin 81 mg tablet,delayed 81 mg PO DAILY 09/12/22 09/12/22 History release pravastatin 20 mg tablet 20 mg PO HS 09/12/22 09/12/22 History Past Med/Surg History Medical History Arthritis Atrial fibrillation Breast cancer, right 03/09/2020 Cardiomyopathy CVA (cerebral vascular accident) Follicular lymphoma Diagnosed 01/28/19 - Left 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 Matthew on 04/22/2020 Family History Father , Passed age 88 of Kidney Cancer No problems noted. Mother , Passed age 83 of Alzheimers Disease No problems noted. Brother No problems noted. Sister ALL (acute lymphoblastic leukemia), Onset Age: 66 Now in remission Daughter No problems noted. Son No problems noted. 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 Feels Safe at Home: Yes Childhood Exposure to Second-Hand Smoke: Yes (Father Smoked in Home ) caffeine: Yes (4 cups of coffee/day ) Dental Care, Regularly: Yes Assistive Devices: Cane Review of Systems Constitutional: + fatigue and + weakness; no fever and no body aches Ear, Nose, Mouth, Throat: no ear discharge, no hearing loss and no nasal congestion Respiratory: no cough, no chest congestion and no dyspnea Cardiovascular: + edema; no chest pain, no dyspnea and no palpitations Gastrointestinal: no abdominal pain, no nausea, no vomiting and no diarrhea/loose stools Genitourinary: no dysuria, no hematuria and no flank pain Musculoskeletal: Chronic Hip pains Neurologic: + unsteadiness, + generalized weakness and + tremor(s) (Chronic intention tremor in the hand); no localized weakness and no loss of sensation Psychiatric: no depression, no anxiety and no confusion Physical Exam Constitutional: + well hydrated; no acute distress Elderly woman Eyes: PERRL, conjunctivae normal, anicteric sclerae ENMT: external ear and nose normal, oropharynx normal Respiratory: normal respiratory effort, lungs clear to auscultation Cardiovascular: Rate/Rhythm: + irregularly irregular S1 S2 Gastrointestinal (Abdomen): normal bowel sounds, soft, nontender, no hepatosplenomegaly Musculoskeletal: Bilateral pitting leg edema Neurologic: PERRL, EOMI, accommodation nl, no face palsy, no dysarthria No focal deficits in power in both upper extremities Reduced power in LE bilaterally (chronic per patient) No sensory deficits Psychiatric: A+Ox3, euthymic affect Results & Data Results & Data Vital Signs (Past 12 Hours) Vital Signs Temp Pulse Pulse Resp BP BP Pulse Ox 09/12/22 17:57 86 16 120/89 97 09/12/22 16:17 88 09/12/22 16:16 92 H 20 120/94 96 09/12/22 16:06 88 09/12/22 15:32 36.6 C 90 20 102/73 92 O2 Del Method 09/12/22 17:57 Room Air 09/12/22 16:17 09/12/22 16:16 Room Air 09/12/22 16:06 Room Air 09/12/22 15:32 Room Air Laboratory Results Laboratory Results - last 24 hr 09/12/22 09/12/22 09/12/22 15:46 15:46 15:46 WBC 4.64 L RBC 4.03 L Hgb 12.7 Hct 38.8 MCV 96.3 MCH 31.5 MCHC 32.7 RDW Std Deviation 57.4 H RDW Coeff of Pablo 16.2 H Plt Count 242 MPV 10.8 Immature Gran % (Auto) 0.4 Neut % (Auto) 66.2 Lymph % (Auto) 17.5 Terrell % (Auto) 13.4 Eos % (Auto) 1.9 Baso % (Auto) 0.6 Neut # (Auto) 3.07 Lymph # (Auto) 0.81 L Terrell # (Auto) 0.62 H Eos # (Auto) 0.09 Baso # (Auto) 0.03 Immature Gran # (Auto) 0.02 PT INR APTT PTT Ratio Sodium 141 Potassium 3.9 Chloride 100 Carbon Dioxide 34 H Anion Gap 7 BUN 27 H Creatinine 1.07 Est Cr Clr Drug Dosing Not Reportable Est GFR ( Amer) 56.4 Est GFR (Non-Af Amer) 48.6 BUN/Creatinine Ratio 25.2 H Glucose 92 Calcium 9.1 Magnesium 2.3 Total Bilirubin 0.8 AST 21 ALT 13 Alkaline Phosphatase 42 Troponin I High Sens 8.2 Total Protein 7.2 Albumin 3.6 Globulin 3.6 Albumin/Globulin Ratio 1.0 Urine Color Urine Appearance Urine pH Ur Specific [place] Urine Protein Urine Glucose (UA) Urine Ketones Urine Blood Urine Nitrite Urine Bilirubin Urine Urobilinogen Ur Leukocyte Esterase Urine WBC (Auto) Urine RBC (Auto) U Hyaline Cast (Auto) U Epithel Cells (Auto) Urine Bacteria (Auto) Lyme Disease IgG Ab Negative Lyme Disease IgM Ab Negative SARS-CoV-2, RNA, NAAT 09/12/22 09/12/22 09/12/22 15:46 16:15 17:35 WBC RBC Hgb Hct MCV MCH MCHC RDW Std Deviation RDW Coeff of Pablo Plt Count MPV Immature Gran % (Auto) Neut % (Auto) Lymph % (Auto) Terrell % (Auto) Eos % (Auto) Baso % (Auto) Neut # (Auto) Lymph # (Auto) Terrell # (Auto) Eos # (Auto) Baso # (Auto) Immature Gran # (Auto) PT 12.8 H INR 1.2 H APTT 30.7 PTT Ratio 1.1 Sodium Potassium Chloride Carbon Dioxide Anion Gap BUN Creatinine Est Cr Clr Drug Dosing Est GFR ( Amer) Est GFR (Non-Af Amer) BUN/Creatinine Ratio Glucose Calcium Magnesium Total Bilirubin AST ALT Alkaline Phosphatase Troponin I High Sens Total Protein Albumin Globulin Albumin/Globulin Ratio Urine Color Yellow Urine Appearance Clear Urine pH 7.0 Ur Specific [place] 1.008 Urine Protein Negative Urine Glucose (UA) Negative Urine Ketones Negative Urine Blood Negative Urine Nitrite Negative Urine Bilirubin Negative Urine Urobilinogen Negative Ur Leukocyte Esterase 2+ H Urine WBC (Auto) 10-30 H Urine RBC (Auto) 0-4 U Hyaline Cast (Auto) 0 U Epithel Cells (Auto) >30 H Urine Bacteria (Auto) Negative Lyme Disease IgG Ab Lyme Disease IgM Ab SARS-CoV-2, RNA, NAAT NEGATIVE Code Status & VTE Plan Code Status Full code VTE Prophylaxis Plan VTE Prophylaxis will be ordered: Yes
[2022-09-12] MEDS ORDERED: PRAVASTATIN SOD 20 MG TAB PO SCH (22:51)
[2022-09-12] MEDS ORDERED: ACETAMINOPHEN 325 MG TAB PO PRN (22:51)
[2022-09-12] MEDS ORDERED: POLYETHYLENE (MIRALAX) 17 GM PACK PO PRN (22:51)
[2022-09-12] MEDS ORDERED: ONDANSETRON INJ 2 MG/ML 2 ML VIAL IV PRN (22:51)
[2022-09-13] MEDS: APIXABAN 5 MG TABLET PO SCH ×2 (00:27→08:21)
[2022-09-13 06:17] LABS: Hematocrit (blood only) 37.9 % (37.0-47.0); Hemoglobin 12.8 g/dl (12.0-16.0); Mean Corpuscular Hemoglobin 31.8 pg (25.0-34.0); Mean Corpuscular Hgb Conc 33.8 g/dL (32.0-36.0); Mean Platelet Volume 10.8 fL (9.4-12.4); Platelet Count 239 K/uL (130-400); RDW Coefficient of Variation 15.9 % (11.5-14.5); RDW Standard Deviation 54.7 fL (36.4-46.3); Red Blood Count 4.03 M/uL (4.20-5.40); White Blood Count 4.77 K/ul (4.8-10.8)
[2022-09-13 06:37] LABS: BUN Creatinine Ratio 24.1 (10-20); Calcium 8.7 mg/dl (8.6-10.3); Creatinine Clr Calc Pharmacy 52.3 ml/min; Est GFR (African American) 81.4 ml/min; Est GFR (Non-African American) 70.2 ml/min; Magnesium 2.2 mg/dl (1.7-2.4); Phosphorus 3.1 mg/dl (2.5-4.9); Potassium 3.6 mmol/L (3.5-5.1)
[2022-09-13] MEDS ORDERED: ASPIRIN 81 MG ECTAB PO SCH (09:00)
[2022-09-13] MEDS ORDERED: FUROSEMIDE 20 MG TAB PO SCH (09:00)
[2022-09-13] MEDS ORDERED: ANASTROZOLE 1 MG TAB PO SCH (09:00)
[2022-09-13] MEDS ORDERED: CALCIUM 600MG + VIT D 400 IU TAB PO SCH (09:00)
[2022-09-13] MEDS ORDERED: VITAMIN B COMPLEX TAB PO SCH (09:00)
[2022-09-13] MEDS ORDERED: METOPROLOL SUCC 50MG EXT REL TAB PO SCH (09:00)
[2022-09-13] MEDS ORDERED: MULTIVITAMIN TAB PO SCH (09:00)
--- NOTE | 2022-09-13 14:03 | Discharge Summary ---
Date of Service September 13, 2022 Admission HPI Per Admitting Provider 82-year-old woman with history of A-fib on Eliquis, breast cancer status postradiation on anastrozole, chronic diastolic heart failure, CVAs, peripheral vascular disease, valvular heart disease, hypertension, pulmonary hypertension, nocturnal hypoxemia on nighttime oxygen, NHL s/p radiation, pancreatic neuroendocrine tumor status post surgery who presented with worsening generalized weakness. Patient reports that she has been generally weak over time but over the past day or 2 has progressively worsened. Denied any focal weakness, focal numbness, blurry vision, headache or dizziness Denies fever, chills, nausea, vomiting, diarrhea. Denies any dysuria, hematuria. Reports frequency usually after taking her home Lasix and no change in diet. Denies cough, chest pain, shortness of breath. Ambulates with a walker. Reported a fall on her buttock some weeks ago in the kitchen with dizziness. Denied any head trauma at the time or loss of consciousness. Admission Exam Per Admitting Provider Constitutional: + well hydrated; no acute distressElderly woman Eyes: PERRL, conjunctivae normal, anicteric sclerae ENMT: external ear and nose normal, oropharynx normal Respiratory: normal respiratory effort, lungs clear to auscultation Cardiovascular: Rate/Rhythm: + irregularly irregular S1 S2 Gastrointestinal (Abdomen): normal bowel sounds, soft, nontender, no hepatosplenomegaly Musculoskeletal: Bilateral pitting leg edema Neurologic: PERRL, EOMI, accommodation nl, no face palsy, no dysarthria No focal deficits in power in both upper extremities Reduced power in LE bilaterally (chronic per patient) No sensory deficits Psychiatric: A+Ox3, euthymic affect Principal Diagnosis Generalized weakness Discharge Exam Constitutional + well hydrated; no acute distress Eyes PERRL, conjunctivae normal, anicteric sclerae ENMT external ear and nose normal, oropharynx normal Respiratory normal respiratory effort, lungs clear to auscultation Cardiovascular Rate/Rhythm: + irregularly irregular S1 S2 Gastrointestinal (Abdomen) normal bowel sounds, soft, nontender, no hepatosplenomegaly Musculoskeletal Bilateral pedal edema Neurologic PERRL, EOMI, accommodation nl, no face palsy, no dysarthria Psychiatric A+Ox3, euthymic affect Discharge Data Allergies Allergy/AdvReac Type Severity Reaction Status Date / Time ezetimibe AdvReac Intermediate Weakness Verified 05/18/22 13:55 chlorpheniramine AdvReac Mild "Antsy Verified 05/18/22 13:55 [From Chlor-Trimeton] Feeling" Consultations 09/12/22 17:28 ED Decision to Admit Stat Ordered Studies 09/12/22 15:34 CT head/brain wo con Stat Hospital Course (1) Generalized weakness: Plan 82-year-old woman with history of A-fib on Eliquis, breast cancer status postradiation on anastrozole, chronic diastolic heart failure, CVAs, peripheral vascular disease, valvular heart disease, hypertension, pulmonary hypertension, nocturnal hypoxemia on nighttime oxygen, NHL s/p radiation, pancreatic neuroendocrine tumor status post surgery who presented with worsening generalized weakness. This has been chronic but worsened recently No focal deficits CT head showed old infarcts. No acute abnormalities Blood work grossly unremarkable UA noted 2+ leuk esterase, 10-30 WBC, negative bacteria. Low suspicion for UTI. Preliminary urine culture- pin point growth PT/OT eval noted Patient being discharged to [facility] for rehab Fall precautions Chronic diastolic heart failure: Continue lasix and spironolactone Has chronic leg edema per patient. DALILA stocking Afib: Continue apixaban Afib is rate controlled Continue home dose of metoprolol succinate H/o Breast ca Continue anastrazole Continue Vit D-Ca Total Time Total Time Spent Total Time Spent (In Minutes): 45 Total Time Includes: Examination of the Patient, Discharge Planning, Medication Reconciliation and Other (Updated daughter) Discharge Plan Discharge Items Patient Disposition: Transfer Inpatient Rehab Fac Reason For Visit: GENERALIZED WEAKNESS, NEED FOR PLACEMENT Discharge Diagnosis: Generalized weakness Activity: Resume your previous activity Non-emergency contact: Primary Care Provider Call non-emergency contact if: you have any medication questions and your symptoms worsen Follow-up/Referrals: Anastasia Reza DO [Primary Care Provider] - Diet: Heart Healthy and Low Sodium (2gm) Addtl Attending Provider Instructions: Mrs Perez You came to the hospital due to worsening weakness. You were evaluated and you are being discharged to [facility] for rehab Please continue to follow up with your Primary Doctor. It was a pleasure taking care of you. Pending Studies at Discharge: No Stand-Alone Forms: My [facility] Skilled Items Patient informed of condition?: Yes DNR: No Discharge Level of Care: Acute rehab Communicable Disease: No Discharge Prognosis: Stable Lines: None Urinary Catheter: No Medications and DC Order Prescriptions: Continued Eliquis 5 mg tablet 5 mg PO AMHS anastrozole [Arimidex] 1 mg tablet 1 mg PO DAILY furosemide [Lasix] 20 mg tablet 60 mg PO DAILY spironolactone 25 mg tablet 12.5 mg PO 5XWK Rx Instructions: Monday, Monday, , Monday, and Monday multivitamin Tablet 1 tab PO DAILY calcium carbonate-vitamin D3 600 mg(1,500mg) -200 unit Tablet 1 tab PO DAILY metoprolol succinate 100 mg Tablet Extended Release 24 Hr 100 mg PO QAM alendronate [Fosamax] 70 mg Tablet 70 mg PO WK Rx Instructions: monday vitamin B complex Tablet 1 tab PO DAILY aspirin 81 mg Tablet,Delayed Release (Dr/Ec) 81 mg PO DAILY pravastatin 20 mg tablet 20 mg PO HS Discharge Orders: Discharge Order (Routine); Ordered 09/13/22 Ordered By: Carley Araya Admission Data Admit Date/Time: 09/12/22 18:12 Attending Provider: Carley Araya I. Admit Provider: Carley Araya I. Primary Care Provider: Anastasia Reza Other Providers: Dharmesh Gasca Sabrina M. ; [facility] Other Interventions: Discharge Summary Assessment (RN) Last Done: 09/13/22 15:34
[2022-09-13 15:22] VITALS: BP 117/85; PULSE 89; TEMP 98.2; O2SAT 95
[2022-09-14] MEDS ORDERED: SPIRONOLACTONE 12.5 MG TAB PO SCH (09:00)
[2022-09-16] MEDS ORDERED: ALENDRONATE SODIUM 70 MG TAB PO SCH (06:30)
== END 2022-09-13 17:21 | DRG 948 ==
LOC: 2N 15:02 → ED 15:02 → OBSVTOIN 18:58 → 2N 21:44

== ENCOUNTER 2022-10-07 18:06 | Inpatient (IN) ==
[2022-10-07 19:15] LABS: Basophils # (auto) 0.03 K/uL (0-0.2); Basophils % (auto) 0.6 %; Eosinophils % (auto) 2.1 %; Hematocrit (blood only) 36.1 % (37.0-47.0); Hemoglobin 11.9 g/dl (12.0-16.0); Immature Granulocytes # (auto) 0.02 K/uL (0.01-0.20); Immature Granulocytes % (auto) 0.4 %; Lymphocytes # (auto) 0.82 K/uL (1.2-3.4); Lymphocytes % (auto) 17.2 %; Mean Corpuscular Hemoglobin 31.5 pg (25.0-34.0); Mean Corpuscular Volume 95.5 fL (80.0-100.0); Mean Platelet Volume 11.4 fL (9.4-12.4); Monocytes # (auto) 0.61 K/uL (0.11-0.59); Monocytes % (auto) 12.8 %; Neutrophils # (auto) 3.18 K/uL (1.40-6.50); Neutrophils % (auto) 66.9 %; Platelet Count 281 K/uL (130-400); RDW Standard Deviation 62.5 fL (36.4-46.3); Red Blood Count 3.78 M/uL (4.20-5.40); White Blood Count 4.76 K/ul (4.8-10.8)
--- NOTE | 2022-10-07 19:24 | Emergency Department Note ---
Impression & Plan Generalized weakness, Chronic a-fib ED Provider Note Provider: Aamir Carlos MD DATE OF SERVICE: 10/07/2022 CHIEF COMPLAINT: Weakness HISTORY OF PRESENT ILLNESS: Patient is a 82-year-old female history of atrial fibrillation on Eliquis and breast cancer presenting with daughter today. Winston alvarez was in a [place] [facility] several weeks ago and now at home for about a week and a half. Was doing well until today when onset of generalized weakness. States have a hard time getting across the room. Denies significant new pain. Denies fever or URI symptoms. Denies significant nausea or vomiting. Daughter states not eating as well but has been a chronic issue. Chronic leg swelling is not unchanged. Denies urinary symptoms with urinary frequency with her Lasix. Reports a history of stroke but denies new focal numbness or weakness. Denies significant chest pain or palpitations by her report. Falls recently. PAST MEDICAL HISTORY: As noted above MEDICATIONS: Reviewed home medications SOCIAL HISTORY: Lives at home with daughter PHYSICAL EXAM: GENERAL: alert and oriented in no acute distress on stretcher fatigued appearing Head: normocephalic and atraumatic EYES: No injection, discharge or icterus. NECK: Trachea midline. Supple. ENT: Mucous membranes pink and moist. LUNGS: Airway patent. No retractions. Breath sounds clear HEART: Irregular irregular rate and rhythm. No chest wall tenderness. ABDOMEN: Soft and non-tender, without guarding or rebound. SKIN: Acyanotic, warm, dry, without rashes EXTREMITIES: Compression stockings in place with 2+ bilateral lower extremity edema without significant weeping or erythema. The upper extremities are somewh at cool with mildly delayed capillary refill in the fingers diffusely. NEUROLOGICAL: No focal deficits. No aphasia. No facial droop or slurred speech. Normal strength and tone in the extremities. Sensation to gross touch normal. EK bpm atrial fibrillation with occasional PVC. No acute ST segment elevation or depression with a QTc of 397. CONTINUOUS CARDIAC MONITORING: was ordered and showed a heart rate of 80s-90s bpm in atrial fibrillation 1 view chest x-ray per my interpretation: No pneumothorax or or consolidation concerning for pneumonia. No significant pulmonary edema noted. Cardiomegaly noted. Patient's laboratory studies and imaging reviewed. Differential includes Infection, dehydration, metabolic abnormality, hypo/hyperglycemia, electrolyte disturbance, anemia, hypoxia, cardiac sources, neurologic, as well as other pathologies. IMPRESSION/MEDICAL DECISION MAKING: Patient with chronic atrial fibrillation appears rate controlled at this time on anticoagulation. Denies focal numbness or weakness generalized weakness to starting today. No trauma or falls. Denies significant new pain. Fevers reported or other infectious symptoms. Stable by her and daughters reported leg swelling. Slight leukopenia with very minimal anemia today. No severe electrolyte abnormality or sign of significant renal dysfunction. No evidence of hepatitis or pancreatitis based on labs with a normal troponin. Urinalysis obtained not conclusive for any signs of infection and negative COVID testing. Chest x-ray is unremarkable on my review without significant findings concerning for pneumonia or fluid overload. CT of the head per radiology without any acute or cranial abnormality and findings of old infarcts. Unclear exactly what is causing the patient to have such increased weakness but given her difficulties with ambulating at home and fall potential for evaluation and possible further rehab placement.and discussion with the patient and daughter, discussed further observation here which the daughter felt was very appropriate as she has concerns for the patient's fall risk. Patient agreeable. Hospitalist contacted. DIAGNOSIS: Weakness, ambulatory dysfunction, chronic atrial fibrillation DISPOSITION: Hospitalist will evaluate Patient was agreeable with this plan. 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 Matthew on 04/22/2020 Family History Father , Passed age 88 of Kidney Cancer No problems noted. Mother , Passed age 83 of Alzheimers Disease No problems noted. Brother No problems noted. Sister ALL (acute lymphoblastic leukemia), Onset Age: 66 Now in remission Daughter No problems noted. Son No problems noted. 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 Feels Safe at Home: Yes Childhood Exposure to Second-Hand Smoke: Yes (Father Smoked in Home ) caffeine: Yes (4 cups of coffee/day ) Dental Care, Regularly: Yes Assistive Devices: Cane and Walker Allergies Allergies Allergy/AdvReac Type Severity Reaction Status Date / Time ezetimibe AdvReac Intermediate Weakness Verified 05/18/22 13:55 chlorpheniramine AdvReac Mild "Antsy Verified 05/18/22 13:55 [From Chlor-Trimeton] Feeling" Home Meds Home Medications Medication Instructions Recorded Confirmed calcium carbonate 600 mg-vitamin 1 tab PO DAILY 04/23/19 09/12/22 D3 5 mcg (200 unit) tablet multivitamin 1 tab PO DAILY 04/23/19 09/12/22 apixaban 5 mg tablet (Eliquis) 5 mg PO AMHS 10/17/19 09/12/22 anastrozole 1 mg tablet (Arimidex) 1 mg PO DAILY 11/04/20 09/12/22 alendronate 70 mg tablet (Fosamax) 70 mg PO WK 04/05/22 09/12/22 metoprolol succinate 100 mg 100 mg PO QAM 04/05/22 09/12/22 tablet,extended release 24 hr vitamin B complex 1 tab PO DAILY 04/05/22 09/12/22 furosemide 20 mg tablet (Lasix) 60 mg PO DAILY 05/18/22 09/12/22 spironolactone 25 mg tablet 12.5 mg PO 5XWK 05/18/22 09/12/22 aspirin 81 mg tablet,delayed 81 mg PO DAILY 09/12/22 09/12/22 release pravastatin 20 mg tablet 20 mg PO HS 09/12/22 09/12/22 Results & Data (ED) Vital Signs Vital Signs - 24 hr 10/07/22 18:08 10/07/22 18:08 10/07/22 18:22 Temperature 36.4 C L Temperature Source Oral Pulse Rate 90 Pulse Rate from SpO2 Sensor Pulse Rhythm Regular Respiratory Rate 16 16 Respiratory Effort / Characteristics Non-Labored Respiratory Depth Normal Normal Blood Pressure 132/98 Blood Pressure Mean 109 Pulse Oximetry 98 95 Oxygen Delivery Method Room Air Room Air Room Air Sepsis Recent Fever Within 48 Hours Yes Sepsis New/Unexplained Change in Mental Status No Sepsis Action Taken by Nursing No Action Required 10/07/22 18:12 10/07/22 19:02 10/07/22 18:13 Temperature Temperature Source Pulse Rate 95 H 97 H Pulse Rate from SpO2 Sensor Pulse Rhythm Respiratory Rate 15 Respiratory Effort / Characteristics Respiratory Depth Blood Pressure Blood Pressure Mean Pulse Oximetry Oxygen Delivery Method Room Air Sepsis Recent Fever Within 48 Hours Sepsis New/Unexplained Change in Mental Status Sepsis Action Taken by Nursing 10/07/22 18:20 10/07/22 18:30 10/07/22 18:40 Temperature Temperature Source Pulse Rate 91 H 80 93 H Pulse Rate from SpO2 Sensor 90 Pulse Rhythm Respiratory Rate 8 L 10 L 2 L Respiratory Effort / Characteristics Respiratory Depth Blood Pressure Blood Pressure Mean Pulse Oximetry 96 Oxygen Delivery Method Sepsis Recent Fever Within 48 Hours Sepsis New/Unexplained Change in Mental Status Sepsis Action Taken by Nursing 10/07/22 18:50 10/07/22 19:00 10/07/22 19:10 Temperature Temperature Source Pulse Rate 87 87 91 H Pulse Rate from SpO2 Sensor 97 H 82 95 H Pulse Rhythm Respiratory Rate 14 22 17 Respiratory Effort / Characteristics Respiratory Depth Blood Pressure Blood Pressure Mean Pulse Oximetry 99 95 95 Oxygen Delivery Method Sepsis Recent Fever Within 48 Hours Sepsis New/Unexplained Change in Mental Status Sepsis Action Taken by Nursing 10/07/22 19:20 10/07/22 19:30 10/07/22 20:11 Temperature 36.8 C Temperature Source Pulse Rate 94 H 88 88 Pulse Rate from SpO2 Sensor 94 H 97 H Pulse Rhythm Respiratory Rate 24 16 19 Respiratory Effort / Characteristics Respiratory Depth Blood Pressure 130/91 Blood Pressure Mean 114 Pulse Oximetry 95 95 95 Oxygen Delivery Method Room Air Sepsis Recent Fever Within 48 Hours Sepsis New/Unexplained Change in Mental Status Sepsis Action Taken by Nursing 10/07/22 20:11 10/07/22 20:30 Temperature Temperature Source Pulse Rate 88 88 Pulse Rate from SpO2 Sensor 89 Pulse Rhythm Respiratory Rate 19 14 Respiratory Effort / Characteristics Respiratory Depth Blood Pressure 128/99 Blood Pressure Mean 112 Pulse Oximetry 96 95 Oxygen Delivery Method Sepsis Recent Fever Within 48 Hours Sepsis New/Unexplained Change in Mental Status Sepsis Action Taken by Nursing Laboratory Data 10/07/22 18:25 10/07/22 18:25 Lab Results 10/07/22 10/07/22 10/07/22 Range/Units 18:25 18:25 18:25 WBC 4.76 L (4.8-10.8) K/ul RBC 3.78 L (4.20-5.40) M/uL Hgb 11.9 L (12.0-16.0) g/dl Hct 36.1 L (37.0-47.0) % MCV 95.5 (80.0-100.0) fL MCH 31.5 (25.0-34.0) pg MCHC 33.0 (32.0-36.0) g/dL RDW Std Deviation 62.5 H (36.4-46.3) fL RDW Coeff of Pablo 18.0 H (11.5-14.5) % Plt Count 281 (130-400) K/uL MPV 11.4 (9.4-12.4) fL Immature Gran % (Auto) 0.4 % Neut % (Auto) 66.9 % Lymph % (Auto) 17.2 % [place] % (Auto) 12.8 % Eos % (Auto) 2.1 % Baso % (Auto) 0.6 % Neut # (Auto) 3.18 (1.40-6.50) K/uL Lymph # (Auto) 0.82 L (1.2-3.4) K/uL [place] # (Auto) 0.61 H (0.11-0.59) K/uL Eos # (Auto) 0.10 (0-0.50) K/uL Baso # (Auto) 0.03 (0-0.2) K/uL Immature Gran # (Auto) 0.02 (0.01-0.20) K/uL Sodium 143 (136-145) mmol/L Potassium 4.1 (3.5-5.1) mmol/L Chloride 102 (98-107) mmol/L Carbon Dioxide 34 H (21-32) mmol/L Anion Gap 7 (3-11) BUN 40 H (6-23) mg/dl Creatinine 1.20 (0.6-1.2) mg/dl Est Cr Clr Drug Dosing 32.1 ml/min Est GFR ( Amer) 49.1 ml/min Est GFR (Non-Af Amer) 42.4 ml/min BUN/Creatinine Ratio 33.3 H (10-20) Glucose 85 (70-99(Fasting)) mg/dl POC Glucose (70-99) mg/dl Calcium 9.0 (8.6-10.3) mg/dl Magnesium 2.5 H (1.7-2.4) mg/dl Total Bilirubin 0.7 (0.2-1.0) mg/dl AST 18 (13-39) U/L ALT 11 (7-52) U/L Alkaline Phosphatase 39 (34-104) U/L Total Creatine Kinase 79 (26-192) U/L Troponin I High Sens 8.3 (0-14) pg/ml Total Protein 7.1 (6.0-8.3) gm/dl Albumin 3.6 (3.4-5.0) gm/dl Globulin 3.5 (2.5-4.0) gm/dl Albumin/Globulin Ratio 1.0 (0.9-2) TSH 1.676 (0.300-4.500) uIu/ml Urine Color Urine Appearance (Clear) Urine pH (4.5-7.5) Ur Specific [place] (1.000-1.030) Urine Protein (Negative) Urine Glucose (UA) (Negative) Urine Ketones (Negative) Urine Blood (Negative) Urine Nitrite (Negative) Urine Bilirubin (Negative) Urine Urobilinogen (Negative) Ur Leukocyte Esterase (Negative) Urine WBC (Auto) (0-5) /hpf Urine RBC (Auto) (0-4) /hpf U Hyaline Cast (Auto) (0-5) /lpf U Epithel Cells (Auto) (0-5) /lpf Urine Bacteria (Auto) (Negative) SARS-CoV-2, RNA, NAAT (NEGATIVE) 10/07/22 10/07/22 10/07/22 Range/Units 19:00 19:00 19:28 WBC (4.8-10.8) K/ul RBC (4.20-5.40) M/uL Hgb (12.0-16.0) g/dl Hct (37.0-47.0) % MCV (80.0-100.0) fL MCH (25.0-34.0) pg MCHC (32.0-36.0) g/dL RDW Std Deviation (36.4-46.3) fL RDW Coeff of Pablo (11.5-14.5) % Plt Count (130-400) K/uL MPV (9.4-12.4) fL Immature Gran % (Auto) % Neut % (Auto) % Lymph % (Auto) % [place] % (Auto) % Eos % (Auto) % Baso % (Auto) % Neut # (Auto) (1.40-6.50) K/uL Lymph # (Auto) (1.2-3.4) K/uL [place] # (Auto) (0.11-0.59) K/uL Eos # (Auto) (0-0.50) K/uL Baso # (Auto) (0-0.2) K/uL Immature Gran # (Auto) (0.01-0.20) K/uL Sodium (136-145) mmol/L Potassium (3.5-5.1) mmol/L Chloride (98-107) mmol/L Carbon Dioxide (21-32) mmol/L Anion Gap (3-11) BUN (6-23) mg/dl Creatinine (0.6-1.2) mg/dl Est Cr Clr Drug Dosing ml/min Est GFR ( Amer) ml/min Est GFR (Non-Af Amer) ml/min BUN/Creatinine Ratio (10-20) Glucose (70-99(Fasting)) mg/dl POC Glucose 74 (70-99) mg/dl Calcium (8.6-10.3) mg/dl Magnesium (1.7-2.4) mg/dl Total Bilirubin (0.2-1.0) mg/dl AST (13-39) U/L ALT (7-52) U/L Alkaline Phosphatase (34-104) U/L Total Creatine Kinase (26-192) U/L Troponin I High Sens (0-14) pg/ml Total Protein (6.0-8.3) gm/dl Albumin (3.4-5.0) gm/dl Globulin (2.5-4.0) gm/dl Albumin/Globulin Ratio (0.9-2) TSH (0.300-4.500) uIu/ml Urine Color Yellow Urine Appearance Clear (Clear) Urine pH 6.5 (4.5-7.5) Ur Specific [place] 1.014 (1.000-1.030) Urine Protein Negative (Negative) Urine Glucose (UA) Negative (Negative) Urine Ketones Trace H (Negative) Urine Blood Negative (Negative) Urine Nitrite Negative (Negative) Urine Bilirubin Negative (Negative) Urine Urobilinogen Negative (Negative) Ur Leukocyte Esterase Trace H (Negative) Urine WBC (Auto) 1-5 (0-5) /hpf Urine RBC (Auto) 0-4 (0-4) /hpf U Hyaline Cast (Auto) 0 (0-5) /lpf U Epithel Cells (Auto) 20-30 H (0-5) /lpf Urine Bacteria (Auto) Negative (Negative) SARS-CoV-2, RNA, NAAT NEGATIVE (NEGATIVE) Imaging Data Radiologist's Impression: Head CT 10/07/22 18:56 Exam(s): CT HEAD Without Contrast EXAM: CT Head Without Intravenous Contrast CLINICAL HISTORY: Reason for exam: weakness. TECHNIQUE: Axial computed tomography images of the head/brain without intravenous contrast. CTDI is 38.9 mGy and DLP is 546.36 mGy-cm. Automated exposure control was utilized for the study. A dose lowering technique was utilized adhering to the principles of ALARA. COMPARISON: No relevant prior studies available. FINDINGS: No acute intracranial hemorrhage. No midline shift or mass effect. 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 Age-related cerebral volume loss. Periventricular and subcortical white matter hypoattenuation, consistent with chronic microangiopathy. The visualized orbits appear grossly unremarkable. The calvarium is intact. The visualized paranasal sinuses and mastoid air cells are grossly clear. IMPRESSION: No acute intracranial hemorrhage, midline shift, or mass effect. 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 Electronically signed by: Shawn Prasad MD 10/07/22 20:17 PM Discharge Plan Visit Data Chief Complaint: Weakness Stated Complaint: WEAKNESS ED Provider: Aamir Carlos Discharge Problem: Generalized weakness, Chronic a-fib Patient Disposition: Being Evaluated by Hospitalist Forms Stand Alone Forms: My [facility] Prescriptions Prescriptions: No Action Eliquis 5 mg tablet 5 mg PO AMHS anastrozole [Arimidex] 1 mg tablet 1 mg PO DAILY furosemide [Lasix] 20 mg tablet 60 mg PO DAILY spironolactone 25 mg tablet 12.5 mg PO [id number] Rx Instructions: Monday, Monday, , Monday, and Monday multivitamin Tablet 1 tab PO DAILY calcium carbonate-vitamin D3 600 mg(1,500mg) -200 unit Tablet 1 tab PO DAILY metoprolol succinate 100 mg Tablet Extended Release 24 Hr 100 mg PO QAM alendronate [Fosamax] 70 mg Tablet 70 mg PO WK Rx Instructions: monday vitamin B complex Tablet 1 tab PO DAILY aspirin 81 mg Tablet,Delayed Release (Dr/Ec) 81 mg PO DAILY pravastatin 20 mg tablet 20 mg PO HS Referrals Referrals: Anastasia Reza DO [Primary Care Provider] -
[2022-10-07 19:32] LABS: Albumin Level 3.6 gm/dl (3.4-5.0); BUN Creatinine Ratio 33.3 (10-20); Bilirubin,Total 0.7 mg/dl (0.2-1.0); Creatinine Clr Calc Pharmacy 32.1 ml/min; Est GFR (African American) 49.1 ml/min; Est GFR (Non-African American) 42.4 ml/min; Globulin 3.5 gm/dl (2.5-4.0); Magnesium 2.5 mg/dl (1.7-2.4); Potassium 4.1 mmol/L (3.5-5.1); Total Protein 7.1 gm/dl (6.0-8.3)
[2022-10-07 19:37] LABS: Appearance Urine Clear (Clear); Bacteria Urine Automated Negative (Negative); Bilirubin Urine Negative (Negative); Blood Urine Negative (Negative); Cast Urine Automated 0 /lpf (0-5); Color Urine Yellow; Epithelial Cell Urine Auto 20-30 /lpf (0-5); Glucose Urine UA Negative (Negative); Ketones Urine Trace (Negative); Leukocyte Esterase Urine Trace (Negative); Nitrite Urine Negative (Negative); Protein Urine Negative (Negative); RBC Urine Automated 0-4 /hpf (0-4); Specific Gravity Urine 1.014 (1.000-1.030); Urobilinogen Urine Negative (Negative); pH Urine 6.5 (4.5-7.5)
[2022-10-07 19:39] LABS: Troponin I High Sensitivity 8.3 pg/ml (0-14)
--- NOTE | 2022-10-07 20:18 | CT Scan Report ---
Exam(s): CT HEAD Without Contrast EXAM: CT Head Without Intravenous Contrast CLINICAL HISTORY: Reason for exam: weakness. TECHNIQUE: Axial computed tomography images of the head/brain without intravenous contrast. CTDI is 38.9 mGy and DLP is 546.36 mGy-cm. Automated exposure control was utilized for the study. A dose lowering technique was utilized adhering to the principles of ALARA. COMPARISON: No relevant prior studies available. FINDINGS: No acute intracranial hemorrhage. No midline shift or mass effect. 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 Age-related cerebral volume loss. Periventricular and subcortical white matter hypoattenuation, consistent with chronic microangiopathy. The visualized orbits appear grossly unremarkable. The calvarium is intact. The visualized paranasal sinuses and mastoid air cells are grossly clear. IMPRESSION: No acute intracranial hemorrhage, midline shift, or mass effect. 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 Electronically signed by: Shawn Prasad MD 10/07/22 20:17 PM
[2022-10-08] MEDS ORDERED: POLYETHYLENE (MIRALAX) 17 GM PACK PO PRN (00:13)
[2022-10-08] MEDS ORDERED: ACETAMINOPHEN 325 MG TAB PO PRN (00:13)
--- NOTE | 2022-10-08 00:34 | History and Physical Report ---
DATE OF ADMISSION: 10/07/2022. CHIEF COMPLAINT: Weakness and ambulatory dysfunction. HISTORY OF PRESENT ILLNESS: This is an 82-year-old female with past medical history significant for AFib, on Eliquis, history of breast cancer, status post radiation and on anastrozole, history of chronic diastolic CHF, history of severe peripheral vascular disease, history of valvular heart disease, hypertension, pulmonary hypertension, nocturnal hypoxemia, on nighttime oxygen, history of NHL, status post radiation, history of pancreatic neuroendocrine tumor, status post surgery, who lives at home downstairs and daughter with family lives upstairs, comes in because of weakness. The patient was here recently in the hospital with similar progressive weakness, evaluated by PT, OT and discharged to [facility]. The patient is currently back at home. The patient states last time she fell was couple of weeks ago while she was in rehab felt dizzy prior to falling but no loss of consciousness. Again since last week getting progressively weak and today, she could not ambulate. Generally ambulates with a walker at home. That is the reason, she came in here. Denies any headache, no dizziness. Vision is okay. No runny nose, no sore throat, no earache. Appetite is okay. No difficulty swallowing. No chest pain or shortness of breath, no nausea, no abdominal pain. Normal bowel and bladder movements. Resting comfortably and hemodynamically stable. ALLERGIES: EZETIMIBE CHLORPHENIRAMINE. PAST MEDICAL HISTORY: As mentioned above. PAST SURGICAL HISTORY: Breast biopsy, right side, dental surgery, right partial mastectomy, left breast punch biopsy, removal of parotid gland, tonsillectomy, bilateral total hip replacements. MEDICATIONS: The patient is on Fosamax 70 mg p.o. weekly, anastrozole 1 mg p.o. daily, Eliquis 5 mg p.o. b.i.d., aspirin 81 mg p.o. daily, calcium carbonate 1 tablet daily, Lasix 60 mg p.o. daily, metoprolol succinate 100 mg p.o. daily, multivitamin 1 tablet p.o. daily, pravastatin 20 mg p.o. at bedtime, spironolactone 12.5 mg p.o. 5 times a week, vitamin B complex 1 tablet p.o. daily. FAMILY HISTORY: Significant for brother has arthritis, father has cancer, sister has cancer, son has hyperlipidemia, brother has hypertension, father has hypertension. SOCIAL HISTORY: No smoking, no alcohol, no drug use. REVIEW OF SYSTEMS: As per HPI. Rest of the review of systems is negative. PHYSICAL EXAMINATION: GENERAL: The patient is of moderate build, not in acute distress. VITAL SIGNS: Temperature 36.8, pulse 88, respiratory rate 14, blood pressure 128/99, oxygen 95% on room air. HEENT: Pupils equal, round and reactive to light. Oral mucosa moist. NECK: No JVD. No neck masses. CARDIOVASCULAR: S1 and S2 heard. Regular rate and rhythm. No murmur, no gallop. RESPIRATORY SYSTEM: Normal AP diameter. No accessory muscle use. No wheezing, no crackles. ABDOMEN: Soft, bowel sounds present, nontender, no distention. CENTRAL NERVOUS SYSTEM: Alert and oriented. Speech is clear. No facial droop. Obeys simple commands. Moves extremities. EXTREMITIES: Lower extremity edema present. LABORATORY DATA: WBC 4.7, hemoglobin 11.9, hematocrit 36.1, platelets 281. Sodium 143, potassium 4.1, chloride 102, bicarbonate 34, BUN 40, creatinine 1.2, serum glucose 85, calcium 9, magnesium 2.5, total bilirubin 0.7, AST 18, ALT 11, alkaline phosphatase 39. Troponin I high sensitivity 8.3. TSH is 1.6. Urinalysis negative. SARS-CoV-2 rapid test negative. IMAGING DATA: CT of the head, no acute findings. Chest x-ray, no acute findings. EKG, atrial fibrillation with PVCs at a rate of 93, nonspecific ST abnormalities. ASSESSMENT AND PLAN: This is an 82-year-old female, who presents with weakness and ambulatory dysfunction. 1. Weakness and ambulatory dysfunction. The patient was recently presented with similar complaints and was sent to rehabilitation. Will do physical therapy, occupational therapy evaluation. Monitor in the hospital. 2. Chronic systolic congestive heart failure, ejection fraction of 40%-45% on echocardiogram done in 2019. The patient says recently her Lasix was increased to 60 mg daily about 6 weeks ago and since then left lower extremity edema is much improved as per patient. Continue Lasix, spironolactone, metoprolol succinate. Monitor for any volume overload. 4. History of atrial fibrillation, rate controlled with metoprolol and on Eliquis. 5. Hyperlipidemia. On statin. 6. Chronic diastolic congestive heart failure. Continue Lasix, spironolactone. 7. History of breast cancer, on anastrozole. Continue vitamin D and calcium. 8. Deep venous thrombosis prophylaxis. On Eliquis. DISPOSITION: Closely monitor in the medical floor. PT/OT. Social service to help with discharge planning. Level 1 full code with any chance of recovery as per my discussion with the patient. Job ID: [id number] [facility]
[2022-10-08 06:53] LABS: BUN Creatinine Ratio 31.9 (10-20); Calcium 8.5 mg/dl (8.6-10.3); Creatinine Clr Calc Pharmacy 42.1 ml/min; Est GFR (African American) 68.6 ml/min; Est GFR (Non-African American) 59.2 ml/min; Magnesium 2.3 mg/dl (1.7-2.4); Potassium 3.4 mmol/L (3.5-5.1)
[2022-10-08 07:00] LABS: Troponin I High Sensitivity 8.4 pg/ml (0-14)
[2022-10-08 07:05] LABS: Basophils # (auto) 0.02 K/uL (0-0.2); Basophils % (auto) 0.4 %; Eosinophils # (auto) 0.14 K/uL (0-0.50); Hematocrit (blood only) 35.6 % (37.0-47.0); Hemoglobin 11.6 g/dl (12.0-16.0); Immature Granulocytes # (auto) 0.02 K/uL (0.01-0.20); Immature Granulocytes % (auto) 0.4 %; Lymphocytes # (auto) 0.67 K/uL (1.2-3.4); Lymphocytes % (auto) 14.4 %; Mean Corpuscular Hemoglobin 31.8 pg (25.0-34.0); Mean Corpuscular Hgb Conc 32.6 g/dL (32.0-36.0); Mean Corpuscular Volume 97.5 fL (80.0-100.0); Monocytes # (auto) 0.52 K/uL (0.11-0.59); Monocytes % (auto) 11.2 %; Neutrophils # (auto) 3.28 K/uL (1.40-6.50); Neutrophils % (auto) 70.6 %; Platelet Count 255 K/uL (130-400); RDW Coefficient of Variation 17.7 % (11.5-14.5); RDW Standard Deviation 62.7 fL (36.4-46.3); Red Blood Count 3.65 M/uL (4.20-5.40); White Blood Count 4.65 K/ul (4.8-10.8)
--- NOTE | 2022-10-08 08:19 | XRay Report ---
XR chest 1V portable CLINICAL HISTORY: weakness COMPARISON STUDY: Chest radiograph April 05, 2022. Chest CT July 22, 2022. FINDINGS: Lung volumes are normal. Lungs are clear. There is no pneumothorax or pleural effusion. Car diomegaly is unchanged. Mediastinal contours are normal. There is no evidence for pulmonary edema. Sk in folds project over the left chest. IMPRESSION: No acute cardiopulmonary findings. Cardiomegaly. ACT 112: Negative or not required by law. Electronically signed by: Anderson Branch M.D. 10/08/2022 8:18 AM
[2022-10-08] MEDS ORDERED: POTASSIUM CHLORIDE CRTAB 20 MEQ TABCR PO STA (08:41)
[2022-10-08] MEDS: APIXABAN 5 MG TABLET PO SCH ×2 (09:39→20:04)
[2022-10-08] MEDS: ASPIRIN 81 MG ECTAB PO SCH (09:39)
[2022-10-08] MEDS: CALCIUM 600MG + VIT D 400 IU TAB PO SCH (09:39)
[2022-10-08] MEDS: ANASTROZOLE 1 MG TAB PO SCH (09:39)
[2022-10-08] MEDS: FUROSEMIDE 20 MG TAB PO SCH (09:39)
[2022-10-08] MEDS: VITAMIN B COMPLEX TAB PO SCH (09:40)
[2022-10-08] MEDS: SPIRONOLACTONE 12.5 MG TAB PO SCH (09:40)
[2022-10-08] MEDS: MULTIVITAMIN TAB PO SCH (09:40)
[2022-10-08] MEDS: METOPROLOL SUCC 50MG EXT REL TAB PO SCH (09:40)
--- NOTE | 2022-10-08 12:05 | Hospitalist Progress Note ---
Date of Service October 08, 2022 Assessment & Plan (1) Weakness: (2) Ambulatory dysfunction: (3) Chronic a-fib: (4) Chronic diastolic heart failure: Plan Patient reports progressive weakness over time CT head did not show any abnormalities CXR did not show any acute abnormalities Reviewed labs Patient does have chronic heart failure Reviewed TTE from 2019 which showed EF 40-45%, mod conc LVH, GI DD, Atrial septal aneurysm with small, hemodynamically insignificant shunt. No significant valvular disease TTE from outpatient chart in 06/2021 showed EF of 50-54%, Afib, mild conc LVH, severely enlarged LA, mod enlarged RA, mild MR, mod to severe TR, mod pulm HTN with PASP 45-50 TTE today showed AFib, mild conc LVH, EF 50-55%, mod dil LA, mild TR, RVSP of 40-50 Get PT/OT eval Afib is rte controlled Continue apixaban, aspirin, metoprolol Continue lasix, spironolactone Replete hypokalemia Has history of breast ca. Continue anastrozole Continue alendronate. I spent a total of 45 minutes coordinating, documenting and providing care for this patient excluding time spent in performance of separately billed services Admission and Anticipated Discharge Date Admission Date: October 07, 2022 Subjective Patient seen and examined Reports generalized weakness Reports chronic exertional dyspnea Denied any cough, chest pain, SOB at rest Denied palpitation Denied focal weakness, nausea, vomiting, abd pain, diarrhea, constipation, fever, chills, dysuria, freq, urgency Physical Exam Constitutional: + well hydrated; no acute distress Elderly woman in no distress Eyes: PERRL, conjunctivae normal, anicteric sclerae ENMT: external ear and nose normal, oropharynx normal Respiratory: normal respiratory effort, lungs clear to auscultation Cardiovascular: Rate/Rhythm: + irregularly irregular S1 S2 Gastrointestinal (Abdomen): normal bowel sounds, soft, nontender, no hepatosplenomegaly Musculoskeletal: Trace pedal edema Neurologic: PERRL, EOMI, accommodation nl, no face palsy, no dysarthria Psychiatric: A+Ox3, euthymic affect Results & Data Results & Data Vital Signs (Past 12 Hours) Vital Signs Temp Pulse Resp BP Pulse Ox O2 Del Method 10/08/22 08:00 Room Air 10/08/22 07:20 36.8 C 84 16 120/84 95 Room Air 10/08/22 00:20 36.3 C L 83 18 131/86 97 Room Air 10/08/22 00:27 36.3 C L 83 18 131/86 97 Room Air Laboratory Results Abnormal lab results 10/07/22 10/07/22 10/07/22 Range/Units 18:25 18:25 19:00 WBC 4.76 L (4.8-10.8) K/ul RBC 3.78 L (4.20-5.40) M/uL Hgb 11.9 L (12.0-16.0) g/dl Hct 36.1 L (37.0-47.0) % RDW Std Deviation 62.5 H (36.4-46.3) fL RDW Coeff of Pablo 18.0 H (11.5-14.5) % Lymph # (Auto) 0.82 L (1.2-3.4) K/uL [place] # (Auto) 0.61 H (0.11-0.59) K/uL Potassium (3.5-5.1) mmol/L Carbon Dioxide 34 H (21-32) mmol/L BUN 40 H (6-23) mg/dl BUN/Creatinine Ratio 33.3 H (10-20) Glucose (70-99(Fasting)) mg/dl Calcium (8.6-10.3) mg/dl Magnesium 2.5 H (1.7-2.4) mg/dl Urine Ketones Trace H (Negative) Ur Leukocyte Esterase Trace H (Negative) U Epithel Cells (Auto) 20-30 H (0-5) /lpf 10/08/22 10/08/22 Range/Units :23 06: WBC 4.65 L (4.8-10.8) K/ul RBC 3.65 L (4.20-5.40) M/uL Hgb 11.6 L (12.0-16.0) g/dl Hct 35.6 L (37.0-47.0) % RDW Std Deviation 62.7 H (36.4-46.3) fL RDW Coeff of Pablo 17.7 H (11.5-14.5) % Lymph # (Auto) 0.67 L (1.2-3.4) K/uL [place] # (Auto) (0.11-0.59) K/uL Potassium 3.4 L (3.5-5.1) mmol/L Carbon Dioxide (21-32) mmol/L BUN 29 H (6-23) mg/dl BUN/Creatinine Ratio 31.9 H (10-20) Glucose 124 H (70-99(Fasting)) mg/dl Calcium 8.5 L (8.6-10.3) mg/dl Magnesium (1.7-2.4) mg/dl Urine Ketones (Negative) Ur Leukocyte Esterase (Negative) U Epithel Cells (Auto) (0-5) /lpf
[2022-10-08] MEDS: PRAVASTATIN SOD 20 MG TAB PO SCH (20:04)
[2022-10-08] MEDS ORDERED: MAGNESIUM HYDROXIDE SUSP 30 ML UDC PO PRN (21:32)
[2022-10-09 06:39] LABS: Hematocrit (blood only) 36.3 % (37.0-47.0); Hemoglobin 12.1 g/dl (12.0-16.0); Mean Corpuscular Hemoglobin 31.6 pg (25.0-34.0); Mean Corpuscular Hgb Conc 33.3 g/dL (32.0-36.0); Mean Corpuscular Volume 94.8 fL (80.0-100.0); Platelet Count 278 K/uL (130-400); RDW Coefficient of Variation 17.2 % (11.5-14.5); RDW Standard Deviation 59.5 fL (36.4-46.3); Red Blood Count 3.83 M/uL (4.20-5.40); White Blood Count 4.56 K/ul (4.8-10.8)
--- NOTE | 2022-10-09 06:43 | Electrocardiogram Report ---
Test Reason : Blood Pressure : / mmHG Vent. Rate : 093 BPM Atrial Rate : 000 BPM P-R Int : 000 ms QRS Dur : 078 ms QT Int : 368 ms P-R-T Axes : 000 -21 -45 degrees QTc Int : 458 ms Atrial fibrillation with premature ventricular or aberrantly conducted complexes Nonspecific ST and T wave abnormality Abnormal ECG When compared with ECG of 12-SEP-2022 15:41, Criteria for Septal infarct are no longer Present Confirmed by Jose Carlos Perla ([id number]) on 10/09/2022 6:43:28 AM Referred By: Provider Outside Confirmed By:Jose Carlos Perla
[2022-10-09 07:01] LABS: BUN Creatinine Ratio 22.9 (10-20); Calcium 8.7 mg/dl (8.6-10.3); Creatinine Clr Calc Pharmacy 39.9 ml/min; Est GFR (African American) 64.3 ml/min; Est GFR (Non-African American) 55.5 ml/min; Magnesium 2.4 mg/dl (1.7-2.4); Phosphorus 2.9 mg/dl (2.5-4.9); Potassium 4.2 mmol/L (3.5-5.1)
--- NOTE | 2022-10-09 07:33 | Electrocardiogram Report ---
Test Reason : Blood Pressure : / mmHG Vent. Rate : 084 BPM Atrial Rate : 258 BPM P-R Int : 000 ms QRS Dur : 086 ms QT Int : 380 ms P-R-T Axes : 000 -07 -71 degrees QTc Int : 449 ms Atrial fibrillation with premature ventricular or aberrantly conducted complexes Nonspecific T wave abnormality Abnormal ECG When compared with ECG of 07-OCT-2022 18:24, (unconfirmed) No significant change was found Confirmed by Jose L Lima ([id number]) on 10/09/2022 7:33:16 AM Referred By: Provider Outside Confirmed By:Arturo Lima
[2022-10-09] MEDS: MULTIVITAMIN TAB PO SCH (08:50)
[2022-10-09] MEDS: METOPROLOL SUCC 50MG EXT REL TAB PO SCH (08:51)
[2022-10-09] MEDS: SPIRONOLACTONE 12.5 MG TAB PO SCH (08:51)
[2022-10-09] MEDS: APIXABAN 5 MG TABLET PO SCH ×2 (08:51→20:07)
[2022-10-09] MEDS: CALCIUM 600MG + VIT D 400 IU TAB PO SCH (08:51)
[2022-10-09] MEDS: ANASTROZOLE 1 MG TAB PO SCH (08:51)
[2022-10-09] MEDS: FUROSEMIDE 20 MG TAB PO SCH (08:51)
[2022-10-09] MEDS: ASPIRIN 81 MG ECTAB PO SCH (08:52)
[2022-10-09] MEDS: VITAMIN B COMPLEX TAB PO SCH (08:52)
--- NOTE | 2022-10-09 11:59 | Hospitalist Progress Note ---
Date of Service October 09, 2022 Assessment & Plan (1) Weakness: (2) Ambulatory dysfunction: (3) Chronic a-fib: (4) Chronic diastolic heart failure: Plan Patient reports progressive weakness over time CT head did not show any abnormalities CXR did not show any acute abnormalities Reviewed labs Patient does have chronic heart failure Reviewed TTE from 2019 which showed EF 40-45%, mod conc LVH, GI DD, Atrial septal aneurysm with small, hemodynamically insignificant shunt. No significant valvular disease TTE from outpatient chart in 06/2021 showed EF of 50-54%, Afib, mild conc LVH, severely enlarged LA, mod enlarged RA, mild MR, mod to severe TR, mod pulm HTN with PASP 45-50 TTE on 10/09/22 showed AFib, mild conc LVH, EF 50-55%, mod dil LA, mild TR, RVSP of 40-50 PT/OT eval noted PT noted bradykinesia. Recommended rehab Recommend outpatient follow up with her Neurology outpatient. Has appt on 10/26/22 Afib is rate controlled Continue apixaban, aspirin, metoprolol Continue lasix, spironolactone Has history of breast ca. Continue anastrozole Continue alendronate. I spent a total of 45 minutes coordinating, documenting and providing care for this patient excluding time spent in performance of separately billed services Admission and Anticipated Discharge Date Admission Date: October 07, 2022 Subjective Patient seen and examined Reports generalized weakness and chronic exertional dyspnea Denied any other symptoms at this time Denied any cough, chest pain, SOB at rest Denied fever, chills, nausea, vomiting, abd pain Physical Exam Constitutional: + well hydrated; no acute distress Eyes: PERRL, conjunctivae normal, anicteric sclerae ENMT: external ear and nose normal, oropharynx normal Respiratory: normal respiratory effort, lungs clear to auscultation Cardiovascular: Rate/Rhythm: + irregularly irregular S1 S2 Gastrointestinal (Abdomen): normal bowel sounds, soft, nontender, no hepatosplenomegaly Musculoskeletal: No pedal edema Neurologic: PERRL, EOMI, accommodation nl, no face palsy, no dysarthria Psychiatric: A+Ox3, euthymic affect Results & Data Results & Data Vital Signs (Past 12 Hours) Vital Signs Temp Pulse Pulse Resp BP Pulse Ox O2 Del Method 10/09/22 07:30 Room Air 10/09/22 08:45 84 102/72 06/11/23 07:19 36.5 C 90 16 108/76 96 Room Air Laboratory Results Abnormal lab results 10/09/22 10/09/22 Range/Units 06:00 06:00 WBC 4.56 L (4.8-10.8) K/ul RBC 3.83 L (4.20-5.40) M/uL Hct 36.3 L (37.0-47.0) % RDW Std Deviation 59.5 H (36.4-46.3) fL RDW Coeff of Pablo 17.2 H (11.5-14.5) % Carbon Dioxide 34 H (21-32) mmol/L BUN/Creatinine Ratio 22.9 H (10-20)
[2022-10-09] MEDS: PRAVASTATIN SOD 20 MG TAB PO SCH (20:07)
[2022-10-10 07:24] LABS: BUN Creatinine Ratio 19.6 (10-20); Calcium 8.6 mg/dl (8.6-10.3); Creatinine Clr Calc Pharmacy 37.6 ml/min; Est GFR (African American) 59.7 ml/min; Est GFR (Non-African American) 51.5 ml/min; Magnesium 2.4 mg/dl (1.7-2.4); Phosphorus 3.5 mg/dl (2.5-4.9); Potassium 4.2 mmol/L (3.5-5.1)
[2022-10-10] MEDS: APIXABAN 5 MG TABLET PO SCH ×2 (08:12→21:00)
[2022-10-10] MEDS: VITAMIN B COMPLEX TAB PO SCH (08:13)
[2022-10-10] MEDS: MULTIVITAMIN TAB PO SCH (08:13)
[2022-10-10] MEDS: FUROSEMIDE 20 MG TAB PO SCH (08:13)
[2022-10-10] MEDS: ANASTROZOLE 1 MG TAB PO SCH (08:13)
[2022-10-10] MEDS: ASPIRIN 81 MG ECTAB PO SCH (08:13)
[2022-10-10] MEDS: SPIRONOLACTONE 12.5 MG TAB PO SCH (08:13)
[2022-10-10] MEDS: CALCIUM 600MG + VIT D 400 IU TAB PO SCH (08:13)
[2022-10-10] MEDS: METOPROLOL SUCC 50MG EXT REL TAB PO SCH (08:14)
--- NOTE | 2022-10-10 15:36 | Hospitalist Progress Note ---
Date of Service October 10, 2022 Assessment & Plan (1) Weakness: (2) Ambulatory dysfunction: (3) Chronic a-fib: (4) Chronic diastolic heart failure: Plan Patient reports progressive weakness over time CT head did not show any abnormalities CXR did not show any acute abnormalities Reviewed labs Patient does have chronic heart failure Reviewed TTE from 2019 which showed EF 40-45%, mod conc LVH, GI DD, Atrial septal aneurysm with small, hemodynamically insignificant shunt. No significant valvular disease TTE from outpatient chart in 06/2021 showed EF of 50-54%, Afib, mild conc LVH, severely enlarged LA, mod enlarged RA, mild MR, mod to severe TR, mod pulm HTN with PASP 45-50 TTE on 10/09/22 showed AFib, mild conc LVH, EF 50-55%, mod dil LA, mild TR, RVSP of 40-50 PT/OT eval noted PT noted bradykinesia. Recommended rehab Recommend outpatient follow up with her Neurology outpatient. Has appt on 10/26/22 Afib is rate controlled Continue apixaban, aspirin, metoprolol Continue lasix, spironolactone Has history of breast ca. Continue anastrozole Continue alendronate. Patient has lost about 9kg in the past 6 months. She stated that she had been intentional. Stated she had been 180 lb about 2 years ago and had wanted to come down to 130s. She stated some of the weight was fluid. I spent a total of 35 minutes coordinating, documenting and providing care for this patient excluding time spent in performance of separately billed services Admission and Anticipated Discharge Date Admission Date: October 07, 2022 Subjective Patient seen and examined Reports generalized weakness and chronic exertional dyspnea Denied any new symptoms at this time Physical Exam Constitutional: + well hydrated; no acute distress Eyes: PERRL, conjunctivae normal, anicteric sclerae ENMT: external ear and nose normal, oropharynx normal Respiratory: normal respiratory effort, lungs clear to auscultation Cardiovascular: Rate/Rhythm: + irregularly irregular S1 S2 Gastrointestinal (Abdomen): normal bowel sounds, soft, nontender, no hepatosplenomegaly Musculoskeletal: No pedal edema Neurologic: PERRL, EOMI, accommodation nl, no face palsy, no dysarthria Psychiatric: A+Ox3, euthymic affect Results & Data Results & Data Vital Signs (Past 12 Hours) Vital Signs Temp Pulse Pulse Resp BP Pulse Ox O2 Del Method 10/10/22 15:31 36.4 C L 82 16 89/68 L 96 Room Air 10/10/22 07:47 36.4 C L 76 14 106/70 96 Room Air Laboratory Results Abnormal lab results 10/10/22 Range/Units 06:18 Carbon Dioxide 35 H (21-32) mmol/L
[2022-10-10] MEDS: PRAVASTATIN SOD 20 MG TAB PO SCH (21:00)
[2022-10-11] MEDS: VITAMIN B COMPLEX TAB PO SCH (08:13)
[2022-10-11] MEDS: CALCIUM 600MG + VIT D 400 IU TAB PO SCH (08:13)
[2022-10-11] MEDS: METOPROLOL SUCC 50MG EXT REL TAB PO SCH (08:13)
[2022-10-11] MEDS: MULTIVITAMIN TAB PO SCH (08:13)
[2022-10-11] MEDS: FUROSEMIDE 20 MG TAB PO SCH (08:13)
[2022-10-11] MEDS: ASPIRIN 81 MG ECTAB PO SCH (08:14)
[2022-10-11] MEDS: ANASTROZOLE 1 MG TAB PO SCH (08:14)
[2022-10-11] MEDS: APIXABAN 5 MG TABLET PO SCH ×2 (08:14→20:29)
--- NOTE | 2022-10-11 13:14 | Hospitalist Progress Note ---
Date of Service October 11, 2022 Assessment & Plan (1) Weakness: (2) Ambulatory dysfunction: (3) Chronic a-fib: (4) Chronic diastolic heart failure: Plan Patient reports progressive weakness over time CT head did not show any abnormalities CXR did not show any acute abnormalities Reviewed labs Patient does have chronic heart failure Reviewed TTE from 2019 which showed EF 40-45%, mod conc LVH, GI DD, Atrial septal aneurysm with small, hemodynamically insignificant shunt. No significant valvular disease TTE from outpatient chart in 06/2021 showed EF of 50-54%, Afib, mild conc LVH, severely enlarged LA, mod enlarged RA, mild MR, mod to severe TR, mod pulm HTN with PASP 45-50 TTE on 10/09/22 showed AFib, mild conc LVH, EF 50-55%, mod dil LA, mild TR, RVSP of 40-50 BP has been running on lower side, 106/72, 87/59, will hold lasix starting tomorrow morning and re eval, monitor volume status closely PT/OT eval noted PT noted bradykinesia. Recommended rehab Recommend outpatient follow up with her Neurology outpatient. Has appt on 10/26/22 Afib is rate controlled Continue apixaban, aspirin, metoprolol Continue lasix, spironolactone Has history of breast ca. Continue anastrozole Continue alendronate. Patient has lost about 9kg in the past 6 months. Patient's weight loss has been a mix of intentional and unintentional Moderate malnutrition [employer] recs noted Continue nutritional supplements DVT ppx: Eliquis FULL CODE Dispo: pending rehab, no bed at [facility] today, hopeful for tomorrow I spent a total of 45 minutes coordinating, documenting and providing care for this patient excluding time spent in performance of separately billed services Admission and Anticipated Discharge Date Admission Date: October 07, 2022 Supervising Physician Co-Signing Physician Notes Agree with findings and plans as detailed by Andree Dillon PA-C Subjective Patient was seen and examined in room 377-1. Follow up weakness. She is requesting Senna BID. Denies f/c/s, chest pain, sob, n/v/d, abd pain. Already worked with PT/OT. Feels she is making progress. Review of Systems Review of Systems: All systems reviewed & are unremarkable except as noted in HPI & below Physical Exam Physical Exam: Gen: Thin, petite F, WD/WN, NAD, A&O x3 HEENT: Normocephalic, atraumatic, conjunctivae moist, sclerae anicteric, mucous membranes moist. Lung: Clear to Auscultation bilaterally, no wheezes/rales/rhonchi Heart: IRR/IRR, no murmurs, rubs, or gallops Abdomen: Soft, NT, ND +BS x 4 Extremities: No edema Skin: Warm, no rash, negative turgor. Results & Data Results & Data Vital Signs (Past 12 Hours) Vital Signs Temp Pulse Resp BP Pulse Ox O2 Del Method 10/11/22 08:00 Room Air 10/11/22 07:30 36.7 C 81 16 113/79 99 Room Air Medications Administered Current Inpatient Medications Acetaminophen (Acetaminophen 325 Mg Tab) 650 mg PO Q4H PRN PRN Reason: pain/fever Stop: 11/07/22 00:12 Alendronate Sodium (Alendronate Sodium 70 Mg Tab) 70 mg PO Fr@0900 REKHA Stop: 11/13/22 08:59 Anastrozole (Anastrozole 1 Mg Tab) 1 mg PO DAILY REKHA Stop: 11/07/22 08:59 Last Admin: 10/11/22 08:14 Dose: 1 mg Apixaban (Apixaban 5 Mg Tablet) 5 mg PO BID REKHA Stop: 11/07/22 08:59 Last Admin: 10/11/22 08:14 Dose: 5 mg Aspirin (Aspirin 81 Mg Ectab) 81 mg PO DAILY REKHA Stop: 11/07/22 08:59 Last Admin: 10/11/22 08:14 Dose: 81 mg Calcium/Vitamin D (Calcium 600mg + Vit D 400 Iu Tab) 1 tab PO DAILY [facility] Stop: 11/07/22 08:59 Last Admin: 10/11/22 08:13 Dose: 1 tab Furosemide (Furosemide 20 Mg Tab) 60 mg PO DAILY REKHA Stop: 11/07/22 08:59 Last Admin: 10/11/22 08:13 Dose: 60 mg Magnesium Hydroxide (Magnesium Hydroxide Susp 30 Ml Udc) 30 ml PO DAILY PRN PRN Reason: Constipation Stop: 11/07/22 21:31 Last Admin: 10/08/22 21:51 Dose: 30 ml Metoprolol Succinate (Metoprolol Succ 50mg Ext Rel Tab) 100 mg PO QAM REKHA Stop: 11/07/22 08:59 Last Admin: 10/11/22 08:13 Dose: 100 mg Multivitamins (Multivitamin Tab) 1 tab PO DAILY [facility] Stop: 11/07/22 08:59 Last Admin: 10/11/22 08:13 Dose: 1 tab Polyethylene Glycol (Polyethylene (Miralax) 17 Gm Pack) 17 gm PO DAILY PRN PRN Reason: Constipation Stop: 11/07/22 00:12 Last Admin: 10/08/22 06:20 Dose: 17 gm Pravastatin Sodium (Pravastatin Sod 20 Mg Tab) 20 mg PO HS [facility] Stop: 11/07/22 20:59 Last Admin: 10/10/22 21:00 Dose: 20 mg Sennosides (Senna 8.6 Mg Tab) 8.6 mg PO [id number] [facility] Stop: 11/10/22 16:59 Spironolactone (Spironolactone 12.5 Mg Tab) 12.5 mg PO [id number] [facility] Stop: 11/07/22 08:59 Last Admin: 10/10/22 08:13 Dose: 12.5 mg Vitamin B Complex (Vitamin B Complex Tab) 1 tab PO DAILY [facility] Stop: 11/07/22 08:59 Last Admin: 10/11/22 08:13 Dose: 1 tab
[2022-10-11] MEDS: SENNA 8.6 MG TAB PO SCH (16:44)
[2022-10-11] MEDS: PRAVASTATIN SOD 20 MG TAB PO SCH (20:29)
[2022-10-12 07:59] VITALS: TEMP 97.7
[2022-10-12] MEDS: APIXABAN 5 MG TABLET PO SCH (09:06)
[2022-10-12] MEDS: SENNA 8.6 MG TAB PO SCH (09:07)
[2022-10-12] MEDS: VITAMIN B COMPLEX TAB PO SCH (09:07)
[2022-10-12] MEDS: ANASTROZOLE 1 MG TAB PO SCH (09:07)
[2022-10-12] MEDS: MULTIVITAMIN TAB PO SCH (09:07)
[2022-10-12] MEDS: ASPIRIN 81 MG ECTAB PO SCH (09:07)
[2022-10-12] MEDS: METOPROLOL SUCC 50MG EXT REL TAB PO SCH (09:07)
[2022-10-12] MEDS: CALCIUM 600MG + VIT D 400 IU TAB PO SCH (09:08)
[2022-10-12] MEDS: SPIRONOLACTONE 12.5 MG TAB PO SCH (09:08)
--- NOTE | 2022-10-12 12:09 | Discharge Summary ---
Discharge Summary Date of Service October 12, 2022 Notes For Next Care Provider Pt admitted for recurrent generalized weakness. Work up unremarkable. Physical therapy noted bradykinesia. Pt may benefit from further neuro eval and has an appointment with neuro on 10/26/22 @ 10:40 with Jeanette Fraire at [facility]. Medication Changes From Visit Senna one tablet twice daily. Admission HPI Per Admitting Provider his is an 82-year-old female with past medical history significant for AFib, on Eliquis, history of breast cancer, status post radiation and on anastrozole, history of chronic diastolic CHF, history of severe peripheral vascular disease, history of valvular heart disease, hypertension, pulmonary hypertension, nocturnal hypoxemia, on nighttime oxygen, history of NHL, status post radiation, history of pancreatic neuroendocrine tumor, status post surgery, who lives at home downstairs and daughter with family lives upstairs, comes in because of weakness. The patient was here recently in the hospital with similar progressive weakness, evaluated by PT, OT and discharged to [facility]. The patient is currently back at home. The patient states last time she fell was couple of weeks ago while she was in rehab felt dizzy prior to falling but no loss of consciousness. Again since last week getting progressively weak and today, she could not ambulate. Generally ambulates with a walker at home. That is the reason, she came in here. Denies any headache, no dizziness. Vision is okay. No runny nose, no sore throat, no earache. Appetite is okay. No difficulty swallowing. No chest pain or shortness of breath, no nausea, no abdominal pain. Normal bowel and bladder movements. Resting comfortably and hemodynamically stable. Admission Exam Per Admitting Provider PHYSICAL EXAMINATION: GENERAL: The patient is of moderate build, not in acute distress. VITAL SIGNS: Temperature 36.8, pulse 88, respiratory rate 14, blood pressure 128/99, oxygen 95% on room air. HEENT: Pupils equal, round and reactive to light. Oral mucosa moist. NECK: No JVD. No neck masses. CARDIOVASCULAR: S1 and S2 heard. Regular rate and rhythm. No murmur, no gallop. RESPIRATORY SYSTEM: Normal AP diameter. No accessory muscle use. No wheezing, no crackles. ABDOMEN: Soft, bowel sounds present, nontender, no distention. CENTRAL NERVOUS SYSTEM: Alert and oriented. Speech is clear. No facial droop. Obeys simple commands. Moves extremities. EXTREMITIES: Lower extremity edema present. Principal Dx & Hospital Course #1 = Principal Diagnosis (1) Weakness: (2) Ambulatory dysfunction: (3) Chronic a-fib: (4) Chronic diastolic heart failure: Plan This is an 82-year-old female who has significant past medical history of chronic atrial fibrillation anticoagulated on Eliquis, history of breast cancer status post radiation and anastrozole therapy, history of pancreatic neuroendocrine tumor status post surgery, chronic diastolic CHF, PVD, HTN, pulm hypertension, nocturnal hypoxemia on nighttime oxygen, history of NHL who was admitted secondary to generalized weakness. Of significance patient was recently hospitalized 09/12 to 09/13 secondary to similar symptoms. At that time no acute etiology was found and she was referred to [facility] for rehab therapy. She was at home for approximately a week and a half when acutely her weakness became worse and she represented back to the hospital. During hospital stay physical therapy did note bradykinesia and is recommended that she follows up with neurology as outpatient. She has scheduled appointment for October 26 at 1040. It is noted that patient has lost approximately 9 kg in the past 6 months in which she states is a mix of intentional and unintentional. She does have noted moderate malnutrition per dietitian who recommends nightly boost supplement. This could also be contributing. Otherwise no acute etiology for weakness was found. She was seen and evaluated by PT and OT who again r ecommended rehab. She is being discharged to [facility] for further rehab services. On day of discharge she is in good spirits and she is hemodynamically stable. She denies any pain, nausea, vomiting, fever or chills. She has been having increased difficulty moving bowels due to Lasix therapy and is requesting Senokot twice daily which was added to her regimen. Discharge Exam Gen: Thin, petite F, WD/WN, NAD, A&O x3 HEENT: Normocephalic, atraumatic, conjunctivae moist, sclerae anicteric, mucous membranes moist. Lung: Clear to Auscultation bilaterally, no wheezes/rales/rhonchi Heart: IRR/IRR, no murmurs, rubs, or gallops Abdomen: Soft, NT, ND +BS x 4 Extremities: No edema Skin: Warm, no rash, negative turgor. Updated Medication List Medication Instructions Recorded Confirmed Type calcium carbonate 600 mg-vitamin 1 tab PO DAILY 04/23/19 09/12/22 History D3 5 mcg (200 unit) tablet multivitamin 1 tab PO DAILY 04/23/19 09/12/22 History apixaban 5 mg tablet (Eliquis) 5 mg PO AMHS 10/17/19 09/12/22 History anastrozole 1 mg tablet (Arimidex) 1 mg PO DAILY 11/04/20 09/12/22 History alendronate 70 mg tablet (Fosamax) 70 mg PO WK 04/05/22 09/12/22 History metoprolol succinate 100 mg 100 mg PO QAM 04/05/22 09/12/22 History tablet,extended release 24 hr vitamin B complex 1 tab PO DAILY 04/05/22 09/12/22 History furosemide 20 mg tablet (Lasix) 60 mg PO DAILY 05/18/22 09/12/22 History spironolactone 25 mg tablet 12.5 mg PO [id number] 05/18/22 09/12/22 History aspirin 81 mg tablet,delayed 81 mg PO DAILY 09/12/22 09/12/22 History release pravastatin 20 mg tablet 20 mg PO HS 09/12/22 09/12/22 History sennosides 8.6 mg tablet (Senokot) 8.6 mg PO BID17 #8 tabs 10/12/22 Rx Hospital Stay Data Consultations 10/07/22 21:26 ED Decision to Admit Stat Diagnostic Imagining Performed Chest X-Ray 10/07/22 18:56 XR chest 1V portable CLINICAL HISTORY: weakness COMPARISON STUDY: Chest radiograph April 05, 2022. Chest CT July 22, 2022. FINDINGS: Lung volumes are normal. Lungs are clear. There is no pneumothorax or pleural effusion. Cardiomegaly is unchanged. Mediastinal contours are normal. There is no evidence for pulmonary edema. Skin folds project over the left chest. IMPRESSION: No acute cardiopulmonary findings. Cardiomegaly. ACT 112: Negative or not required by law. Electronically signed by: Anderson Branch M.D. 10/08/2022 8:[address] 10/07/22 18:56 Exam(s): CT HEAD Without Contrast EXAM: CT Head Without Intravenous Contrast CLINICAL HISTORY: Reason for exam: weakness. TECHNIQUE: Axial computed tomography images of the head/brain without intravenous contrast. CTDI is 38.9 mGy and DLP is 546.36 mGy-cm. Automated exposure control was utilized for the study. A dose lowering technique was utilized adhering to the principles of ALARA. COMPARISON: No relevant prior studies available. FINDINGS: No acute intracranial hemorrhage. No midline shift or mass effect. 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 Age-related cerebral volume loss. Periventricular and subcortical white matter hypoattenuation, consistent with chronic microangiopathy. The visualized orbits appear grossly unremarkable. The calvarium is intact. The visualized paranasal sinuses and mastoid air cells are grossly clear. IMPRESSION: No acute intracranial hemorrhage, midline shift, or mass effect. 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 Electronically signed by: Shawn Prasad MD 10/07/22 20:17 PM Pending Results Patient Have Any Pending Studies at Discharge: No Discharge Instructions Given to Patient (Per Discharging Provider) MEDICATION CHANGES: Senna one tablet twice daily. RECOMMENDATIONS FOR FOLLOW-UP: Follow up with Primary Care Provider upon discharge from rehab. Continue all medications as prescribed. OTHER INSTRUCTIONS: Seek medical attention if you have: * temperature above 101 * chest pain or trouble breathing * abdominal pain, nausea, vomiting * diarrhea, dark stools or bloody stools * any unanswered questions or concerns Call 911 if symptoms are severe. Please take good care of yourself. It has been a pleasure taking care of you. Please take care of yourself. If you have any questions regarding your recent hospitalization please contact [facility] and request morro Ruf[employer] @ [phone]. Total Time Total Time Spent Total Time Spent (In Minutes): 45 minutes Supervising Physician Co-Signing Physician Notes Patient was seen and examined independently at bedside. Chart reviewed. Case discussed with Andree ESTRELLA and agree with the documentation above. Patient is stable to go back to the rehab today. Daughter at bedside and updated about the discharge plan.
[2022-10-12 15:53] VITALS: O2SAT 95
[2022-10-12 16:41] VITALS: BP 87/59; PULSE 76
[2022-10-14] MEDS ORDERED: ALENDRONATE SODIUM 70 MG TAB PO SCH (09:00)
== END 2022-10-12 17:18 | DRG 948 ==
LOC: ED 18:06 → 3N 23:14 → SUATTDRO 23:14 → 3N 23:59

== ENCOUNTER 2022-12-20 11:32 | Inpatient (IN) ==
--- NOTE | 2022-12-20 11:46 | Emergency Department Note ---
Impression & Plan Elevated troponin, Weakness, Fall, Rhabdomyolysis ED Provider Note NAME: FAYE PEREZ AGE: 82 SEX: F : 1940 ARRIVES VIA: Ambulance INFORMANT: Patient ED PROVIDER(S): Derek Hamilton DO CHIEF COMPLAINT: fall HPI: Patient is an 82-year-old female who presents to the ER following a mechanical fall. Patient got up in the middle night after 11 PM and was walking to the bathroom. The cats were walking between her legs and she tripped and fell forward. She is unable to get it up. She complains of left forearm pain. She notes her tetanus is up-to-date. Denies any headache or change in vision. No chest pain or shortness of breath. No nausea, vomiting, or diarrhea. No other exacerbating or remitting factors. She has been having some amatory dysfunction and has been worked up by her PCP for possible Parkinson's. PAST MEDICAL HISTORY:See Below PAST SURGICAL HISTORY:See Below FAMILY HISTORY:See Below SOCIAL HISTORY:See Below HOME MEDICATIONS:See Below ALLERGIES:See Below VITALS:See Below PHYSICAL EXAMINATION: GENERAL: Sitting up in bed, alert, well appearing, well nourished, no distress, non-toxic EYE EXAM: normal conjunctiva. HEAD: NC/AT OROPHARYNX: no exudate, no erythema, lips, buccal mucosa, and tongue normal and mucous membranes are moist NECK: supple, no nuchal rigidity, no adenopathy, non-tender LUNGS: Clear to auscultation. Normal chest wall mechanics HEART: no murmurs, S1 normal and S2 normal ABDOMEN: abdomen soft, non-tender, normo-active bowel sounds, no masses, no rebound or guarding. BACK: Back is symmetrical on inspection and there is no deformity, no midline tenderness, no CVA tenderness. SKIN: no rashes and no bruising UPPER EXTREMITIES: No tenderness on palpation of bilateral lower extremities. Passive and active flexion extension intact bilaterally LOWER EXTREMITIES: Small skin tear on right distal forearm. Minimal tenderness on left mid forearm. Flexion-extension shoulders elbows wrist grasp intact. NEURO EXAM: Normal sensorium, cranial nerves II-XII grossly intact, normal speech, no gross weakness of arms, no gross weakness of legs. MEDICAL DECISION MAKING: Patient is an 82-year-old female who presents ER for above-stated complaint. IV was established blood work was obtained. External records were reviewed. Labs show no significant leukocytosis or anemia. BMP along with LFTs bilirubin was u nremarkable. CK was elevated at 1039. Troponin was elevated at 56. Lipase is normal. Chest x-ray as well as CT head and face and cervical spine was unremarkable. Patient was given IV fluids and updated bedside. Discussed with the hospitalist for further evaluation management treatment. Triage Nursing notes reviewed. Limited review of prior medical records performed Vital Signs: reviewed and remarkable for no significant abnormalities Differential diagnosis: Differential diagnosis includes etiologies such as vasovagal event, infection, hypoglycemia, electrolyte abnormalities, cardiac sources, intracerebral event, toxicologic, neurologic, as well as others were entertained. ER treatment provided: See below Diagnostics interpreted by me include EKG and cardiac monitoring as listed below: -Cardiac Monitoring: An order was placed for continuous cardiac monitoring. The monitor shows a rate of 58 with A-fib rhythm. -ECG: A-fib rate of 57 Normal axis No PVCs QTc 4 6 -Laboratory studies:Interpreted by me as stated above in MDM and shown below. Imaging studies: Xrays: As interpreted by me: Portable AP upright 1 view of the chest shows no focal infiltrate X-ray of the forearm was unremarkable CTs show: CT head and cervical spine was negative CT of the face was negative. 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 Matthew on 04/22/2020 Family History Father , Passed age 88 of Kidney Cancer No problems noted. Mother , Passed age 83 of Alzheimers Disease No problems noted. Brother No problems noted. Sister ALL (acute lymphoblastic leukemia), Onset Age: 66 Now in remission Daughter No problems noted. Son No problems noted. 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 Feels Safe at Home: Yes Childhood Exposure to Second-Hand Smoke: Yes (Father Smoked in Home ) caffeine: Yes (4 cups of coffee/day ) Dental Care, Regularly: Yes Assistive Devices: Oxygen - at Night and Walker Allergies Allergies Allergy/AdvReac Type Severity Reaction Status Date / Time ezetimibe AdvReac Intermediate Weakness Verified 05/18/22 13:55 chlorpheniramine AdvReac Mild "Antsy Verified 05/18/22 13:55 [From Chlor-Trimeton] Feeling" Home Meds Home Medications Medication Instructions Recorded Confirmed calcium carbonate 600 mg-vitamin 1 tab PO DAILY 04/23/19 12/20/22 D3 5 mcg (200 unit) tablet multivitamin 1 tab PO DAILY 04/23/19 12/20/22 apixaban 5 mg tablet (Eliquis) 2.5 mg PO AMHS 10/17/19 12/20/22 anastrozole 1 mg tablet (Arimidex) 1 mg PO DAILY 11/04/20 12/20/22 alendronate 70 mg tablet (Fosamax) 70 mg PO FR@0900 04/05/22 12/20/22 metoprolol succinate 100 mg 50 mg PO QAM 04/05/22 12/20/22 tablet,extended release 24 hr vitamin B complex 1 tab PO DAILY 04/05/22 12/20/22 furosemide 20 mg tablet (Lasix) 40 mg PO DAILY 05/18/22 12/20/22 spironolactone 25 mg tablet 12.5 mg PO SUMOWETHSA@0900 05/18/22 12/20/22 aspirin 81 mg tablet,delayed 81 mg PO DAILY 09/12/22 12/20/22 release carbidopa 25 mg-levodopa 100 mg See Rx Instructions .Route .COMPLEX 12/20/22 12/20/22 tablet (Sinemet) digoxin 125 mcg (0.125 mg) tablet 125 mcg PO MOWEFR@0900 12/20/22 12/20/22 melatonin 3 mg tablet 3 mg PO HS PRN Insomnia 12/20/22 12/20/22 Previous Rx's Medication Instructions Recorded sennosides 8.6 mg tablet (Senokot) 8.6 mg PO BID17 #8 tabs 10/12/22 Results & Data (ED) Vital Signs Vital Signs - 24 hr 12/20/22 11:38 12/20/22 11:46 12/20/22 11:50 Temperature 36.6 C Temperature Source Oral Pulse Rate 79 63 Pulse Rate from SpO2 Sensor Respiratory Rate 18 Blood Pressure 96/70 L Blood Pressure Mean 78 Pulse Oximetry 96 95 Oxygen Delivery Method Room Air Room Air Sepsis Recent Fever Within 48 Hours No Sepsis New/Unexplained Change in Mental Status No Sepsis Action Taken by Nursing No Action Required 12/20/22 11:41 12/20/22 11:50 12/20/22 12:00 Temperature Temperature Source Pulse Rate 72 74 Pulse Rate from SpO2 Sensor Respiratory Rate 18 0 L Blood Pressure 98/72 L Blood Pressure Mean 78 Pulse Oximetry 88 L Oxygen Delivery Method Sepsis Recent Fever Within 48 Hours Sepsis New/Unexplained Change in Mental Status Sepsis Action Taken by Nursing 12/20/22 12:00 12/20/22 12:13 Temperature Temperature Source Pulse Rate 71 62 Pulse Rate from SpO2 Sensor 72 Respiratory Rate 1 L 4 L Blood Pressure Blood Pressure Mean Pulse Oximetry 93 Oxygen Delivery Method Sepsis Recent Fever Within 48 Hours Sepsis New/Unexplained Change in Mental Status Sepsis Action Taken by Nursing Laboratory Data 12/20/22 11:54 12/20/22 11:54 Lab Results 12/20/22 12/20/22 Range/Units 11:54 11:54 WBC 5.52 (4.8-10.8) K/ul RBC 3.84 L (4.20-5.40) M/uL Hgb 12.4 (12.0-16.0) g/dl Hct 37.4 (37.0-47.0) % MCV 97.4 (80.0-100.0) fL MCH 32.3 (25.0-34.0) pg MCHC 33.2 (32.0-36.0) g/dL RDW Std Deviation 58.2 H (36.4-46.3) fL RDW Coeff of Pablo 16.2 H (11.5-14.5) % Plt Count 247 (130-400) K/uL MPV 10.8 (9.4-12.4) fL Immature Gran % (Auto) 0.4 % Neut % (Auto) 76.9 % Lymph % (Auto) 11.6 % Beauregard % (Auto) 10.3 % Eos % (Auto) 0.4 % Baso % (Auto) 0.4 % Neut # (Auto) 4.25 (1.40-6.50) K/uL Lymph # (Auto) 0.64 L (1.2-3.4) K/uL Beauregard # (Auto) 0.57 (0.11-0.59) K/uL Eos # (Auto) 0.02 (0-0.50) K/uL Baso # (Auto) 0.02 (0-0.2) K/uL Immature Gran # (Auto) 0.02 (0.01-0.20) K/uL Sodium 142 (136-145) mmol/L Potassium 3.6 (3.5-5.1) mmol/L Chloride 103 (98-107) mmol/L Carbon Dioxide 32 (21-32) mmol/L Anion Gap 7 (3-11) BUN 31 H (6-23) mg/dl Creatinine 0.89 (0.6-1.2) mg/dl Est Cr Clr Drug Dosing 41.0 ml/min Est GFR ( Amer) 70.4 ml/min Est GFR (Non-Af Amer) 60.8 ml/min BUN/Creatinine Ratio 34.8 H (10-20) Glucose 93 (70-99(Fasting)) mg/dl Calcium 8.8 (8.6-10.3) mg/dl Total Bilirubin 1.0 (0.2-1.0) mg/dl AST 34 (13-39) U/L ALT 19 (7-52) U/L Alkaline Phosphatase 39 (34-104) U/L Total Creatine Kinase 1039 H (26-192) U/L Troponin I High Sens 56.2 H* (0-14) pg/ml Total Protein 6.7 (6.0-8.3) gm/dl Albumin 3.5 (3.4-5.0) gm/dl Globulin 3.2 (2.5-4.0) gm/dl Albumin/Globulin Ratio 1.1 (0.9-2) Lipase 7 L (11-82) U/L Administered Medications Discontinued Medications Sodium Chloride (Nss) 500 mls @ 999 mls/hr IV .Q31M ONE Stop: 12/20/22 14:00 Last Admin: 12/20/22 13:45 Dose: 999 mls/hr Documented By: [facility] Imaging Data Radiologist's Impression: Cervical Spine CT 12/20/22 11:42 CT cervical spine wo con CLINICAL HISTORY: fall TECHNIQUE: Multidetector row helical CT of the cervical spine was performed without administration of intravenous contrast. Coronal and sagittal refor mations were obtained. Automated dose lowering techniques and/or adjustment according to patient size were utilized for this exam. Comparison: None available at the time of this dictation. FINDINGS: No acute fractures or subluxations are identified. Degenerative changes are seen in the visualized spine. The alignment is normal. Soft tissues are unremarkable. IMPRESSION: Degenerative changes without evidence of acute bony injury. ACT 112: Negative or not required by law. Electronically signed by: Yaakov Roman M.D. 12/20/2022 12:[address] 12/20/22 11:42 CT facial bones wo con CLINICAL HISTORY: 82 years-old Female presenting with fall. Acute head and facial injury status post fall COMPARISON STUDY: CT head and cervical spine studies of same day TECHNIQUE: High-resolution CT scan of the facial bones is performed. Images are reviewed in the axial, sagittal, and coronal planes. IV contrast was not administered for this examination. A dose lowering technique was utilized adhering to the principles of ALARA. FINDINGS: Postoperative changes within the left facial/left neck distribution the region of the expected parotid gland. Streak artifact from dental amalgam hardware. Atherosclerosis. No acute intracranial abnormality identified. Degenerative changes of the imaged cervical spine. Degeneration of the temporomandibular joints, left greater than right. The mastoid air cells and middle ear cavities are clear. Mild mucosal thickening of the ethmoid air cells. The remaining paranasal sinuses are clear. 1.3 cm apical cyst involves the left canine and first bicuspids. No acute facial bone fracture identified. IMPRESSION: No acute facial bone fracture identified. ACT 112: Negative or not required by law. The above report was generated using voice recognition software. It may contain grammatical, syntax or spelling errors. Electronically signed by: Jacinto Walker M.D. 12/20/2022 1:13 PM Forearm X-Ray 12/20/22 11:42 LEFT FOREARM 2 VIEWS CLINICAL HISTORY: Left arm pain. FINDINGS: AP and lateral views of the left forearm are obtained. No prior studies are available for comparison at the time of dictation. The skeletal structures are osteopenic. There is no radiographic evidence of left forearm fracture. The elbow and wrist joints are grossly maintained. The overlying soft tissues are normal as imaged. IMPRESSION: No acute bony abnormality is identified. Electronically signed by: Sunil Guardado M.D. 12/20/2022 12:[address] 12/20/22 11:42 CT head/brain wo con CLINICAL HISTORY: fall Technique: Contiguous axial CT images of the head were acquired from the base of the skull to the vertex without intravenous contrast administration. Images were viewed in brain, subdural and bone windows. Automated dose lowering techniques and/or adjustment according to patient size were utilized for this exam. Comparison: Comparison is made to CT head 10/19/2019 Findings: Areas of decreased attenuation are present in the periventricular and subcortical white matter bilaterally consistent with small vessel ischemic disease. Generalized cerebral atrophy with commensurate enlargement of the ventricles, sulci, and cisterns is also present. There is no acute intracranial hemorrhage or evidence of acute territorial infarction. No shift of the midline structures, mass effect, or extra-axial abnormalities are shown. Atherosclerotic calcifications are present in the intracranial segments of the internal carotid arteries. Focal encephalomalacia is seen. Imaged portions of the paranasal sinuses and mastoid air cells are clear. The orbits appear normal. There are no acute fractures of the calvaria or scalp swelling. Impression: No acute intracranial hemorrhage, no evidence of acute territorial infarction or other acute intracranial disease process. ACT 112: Negative or not required by law. Electronically signed by: Yaakov Roman M.D. 12/20/2022 12:22 PM Chest X-Ray 12/20/22 11:43 XR chest 1V portable CLINICAL HISTORY: Chest pain, nonspecific TECHNIQUE: Single frontal radiograph of the chest was obtained. Comparison: Comparison is made to chest radiograph 10/07/2022 FINDINGS: No lines and tubes are seen. Cardiomegaly is noted. The lungs are clear. No evidence of pleural effusion or pneumothorax. IMPRESSION: No acute chest disease. ACT 112: Negative or not required by law. Electronically signed by: Yaakov Roman M.D. 12/20/2022 12:40 PM Discharge Plan Visit Data Chief Complaint: Fall ED Provider: Derek Hamilton Discharge Problem: Elevated troponin, Weakness, Fall, Rhabdomyolysis Forms Stand Alone Forms: [facility] Prescriptions Prescriptions: No Action Eliquis 5 mg tablet 2.5 mg PO AMHS Rx Instructions: lowered 2.5 am and pm anastrozole [Arimidex] 1 mg tablet 1 mg PO DAILY furosemide [Lasix] 20 mg tablet 40 mg PO DAILY spironolactone 25 mg tablet 12.5 mg PO SUMOWETHSA@0900 multivitamin Tablet 1 tab PO DAILY calcium carbonate-vitamin D3 600 mg(1,500mg) -200 unit Tablet 1 tab PO DAILY metoprolol succinate 100 mg Tablet Extended Release 24 Hr 50 mg PO QAM alendronate [Fosamax] 70 mg Tablet 70 mg PO FR@0900 vitamin B complex Tablet 1 tab PO DAILY aspirin 81 mg Tablet,Delayed Release (Dr/Ec) 81 mg PO DAILY sennosides [Senokot] 8.6 mg Tablet 8.6 mg PO BID17 Qty: 8 0RF digoxin 125 mcg (0.125 mg) tablet 125 mcg PO MOWEFR@0900 carbidopa-levodopa [Sinemet] 25-100 mg tablet See Rx Instructions .ROUTE .COMPLEX Rx Instructions: 1/2 tab 3 times daily melatonin 3 mg Tablet 3 mg PO HS PRN (Reason: Insomnia) Referrals Referrals: Anastasia Reza DO [Primary Care Provider] -
[2022-12-20 12:14] LABS: Basophils # (auto) 0.02 K/uL (0-0.2); Basophils % (auto) 0.4 %; Eosinophils # (auto) 0.02 K/uL (0-0.50); Eosinophils % (auto) 0.4 %; Hematocrit (blood only) 37.4 % (37.0-47.0); Hemoglobin 12.4 g/dl (12.0-16.0); Immature Granulocytes # (auto) 0.02 K/uL (0.01-0.20); Immature Granulocytes % (auto) 0.4 %; Lymphocytes # (auto) 0.64 K/uL (1.2-3.4); Lymphocytes % (auto) 11.6 %; Mean Corpuscular Hemoglobin 32.3 pg (25.0-34.0); Mean Corpuscular Hgb Conc 33.2 g/dL (32.0-36.0); Mean Corpuscular Volume 97.4 fL (80.0-100.0); Mean Platelet Volume 10.8 fL (9.4-12.4); Monocytes # (auto) 0.57 K/uL (0.11-0.59); Monocytes % (auto) 10.3 %; Neutrophils # (auto) 4.25 K/uL (1.40-6.50); Neutrophils % (auto) 76.9 %; Platelet Count 247 K/uL (130-400); RDW Coefficient of Variation 16.2 % (11.5-14.5); RDW Standard Deviation 58.2 fL (36.4-46.3); Red Blood Count 3.84 M/uL (4.20-5.40); White Blood Count 5.52 K/ul (4.8-10.8)
--- NOTE | 2022-12-20 12:25 | CT Scan Report ---
CT head/brain wo con CLINICAL HISTORY: fall Technique: Contiguous axial CT images of the head were acquired from the base of the skull to the vincent spencer without intravenous contrast administration. Images were viewed in brain, subdural and [facility]. Automated dose lowering techniques and/or adjustment according to patient size were utilized for this exam. Comparison: Comparison is made to CT head 10/19/2019 Findings: Areas of decreased attenuation are present in the periventricular and subcortical white matter bilate rally consistent with small vessel ischemic disease. Generalized cerebral atrophy with commensurate e nlargement of the ventricles, sulci, and cisterns is also present. There is no acute intracranial hem orrhage or evidence of acute territorial infarction. No shift of the midline structures, mass effect, or extra-axial abnormalities are shown. Atherosclerotic calcifications are present in the intracran ial segments of the internal carotid arteries. Focal encephalomalacia is seen. Imaged portions of the paranasal sinuses and mastoid air cells are clear. The orbits appear normal. There are no acute fractures of the calvaria or scalp swelling. Impression: No acute intracranial hemorrhage, no evidence of acute territorial infarction or other acute intracra nial disease process. ACT 112: Negative or not required by law. Electronically signed by: Yaakov Roman M.D. 12/20/2022 12:22 PM
--- NOTE | 2022-12-20 12:36 | CT Scan Report ---
CT cervical spine wo con CLINICAL HISTORY: fall TECHNIQUE: Multidetector row helical CT of the cervical spine was performed without administration of intravenous contrast. Coronal and sagittal reformations were obtained. Automated dose lowering techn iques and/or adjustment according to patient size were utilized for this exam. Comparison: None available at the time of this dictation. FINDINGS: No acute fractures or subluxations are identified. Degenerative changes are seen in the visualized sp ine. The alignment is normal. Soft tissues are unremarkable. IMPRESSION: Degenerative changes without evidence of acute bony injury. ACT 112: Negative or not required by law. Electronically signed by: Yaakov Roman M.D. 12/20/2022 12:35 PM
--- NOTE | 2022-12-20 12:37 | XRay Report ---
LEFT FOREARM 2 VIEWS CLINICAL HISTORY: Left arm pain. FINDINGS: AP and lateral views of the left forearm are obtained. No prior studies are available for c omparison at the time of dictation. The skeletal structures are osteopenic. There is no radiographic evidence of left forearm fracture. The elbow and wrist joints are grossly maintained. The overlying s oft tissues are normal as imaged. IMPRESSION: No acute bony abnormality is identified. Electronically signed by: Sunil Guardado M.D. 12/20/2022 12:36 PM
[2022-12-20 12:39] LABS: Albumin Globulin Ratio 1.1 (0.9-2); Albumin Level 3.5 gm/dl (3.4-5.0); BUN Creatinine Ratio 34.8 (10-20); Calcium 8.8 mg/dl (8.6-10.3); Est GFR (African American) 70.4 ml/min; Est GFR (Non-African American) 60.8 ml/min; Globulin 3.2 gm/dl (2.5-4.0); Potassium 3.6 mmol/L (3.5-5.1); Total Protein 6.7 gm/dl (6.0-8.3)
--- NOTE | 2022-12-20 12:41 | XRay Report ---
XR chest 1V portable CLINICAL HISTORY: Chest pain, nonspecific TECHNIQUE: Single frontal radiograph of the chest was obtained. Comparison: Comparison is made to chest radiograph 10/07/2022 FINDINGS: No lines and tubes are seen. Cardiomegaly is noted. The lungs are clear. No evidence of pleural effus ion or pneumothorax. IMPRESSION: No acute chest disease. ACT 112: Negative or not required by law. Electronically signed by: Yaakov Roman M.D. 12/20/2022 12:40 PM
--- NOTE | 2022-12-20 13:15 | CT Scan Report ---
CT facial bones wo con CLINICAL HISTORY: 82 years-old Female presenting with fall. Acute head and facial injury status post fall COMPARISON STUDY: CT head and cervical spine studies of same day TECHNIQUE: High-resolution CT scan of the facial bones is performed. Images are reviewed in the axia l, sagittal, and coronal planes. IV contrast was not administered for this examination. A dose lower ing technique was utilized adhering to the principles of ALARA. FINDINGS: Postoperative changes within the left facial/left neck distribution the region of the expected paroti d gland. Streak artifact from dental amalgam hardware. Atherosclerosis. No acute intracranial abnorma lity identified. Degenerative changes of the imaged cervical spine. Degeneration of the temporomandib ular joints, left greater than right. The mastoid air cells and middle ear cavities are clear. Mild mucosal thickening of the ethmoid air c ells. The remaining paranasal sinuses are clear. 1.3 cm apical cyst involves the left canine and firs t bicuspids. No acute facial bone fracture identified. IMPRESSION: No acute facial bone fracture identified. ACT 112: Negative or not required by law. The above report was generated using voice recognition software. It may contain grammatical, syntax o r spelling errors. Electronically signed by: Jacnito Walker M.D. 12/20/2022 1:13 PM
[2022-12-20 13:23] LABS: Troponin I High Sensitivity 56.2 pg/ml (0-14)
[2022-12-20] MEDS ORDERED: SODIUM CHLORIDE 0.9% 500 ML IV ONE (13:30)
--- NOTE | 2022-12-20 14:20 | History & Physical Report ---
Date of Service December 20, 2022 Assessment & Plan (1) Fall: (2) Ambulatory dysfunction: (3) Rhabdomyolysis: (4) Elevated troponin: (5) Combined systolic and diastolic heart failure: (6) Chronic a-fib: (7) Generalized weakness: (8) Follicular lymphoma: (9) Breast cancer, right: (10) S/P lumpectomy, right breast: Plan This is an 82yo F with a PMH of chronic atrial fibrillation on anticoagulation, frequent ventricular ectopy, systolic and diastolic congestive failure (EF: 40- 45%), nocturnal hypoxia and mild MARGARET with oxygen HS, dyslipidemia with statin intolerance, h/p pancreatic tumor s/p distal pancreatectomy/splenectomy, history of CVA CKD III, lymphoma, history of breast cancer on Arimidex and other medical problems who presents after mechanical fall last evening. Mechanical fall Known ambulatory dysfunction Tripped at home, landed on face and was down overnight Reviewed CT head, CT cervical spine, L forearm XR, Face CT, CXR - all without evidence of acute bony injury or bleed Known ambulatory dysfunction with concern for parkinsonian features- has been trialing low dose Sinemet for the past few months with questionable improvement Has been undergoing outpatient PT at home 2x/week, is supposed to be ambulating with a walker PT/OT evaluation Mild rhabdomyolysis Elevated troponin Remained down overnight. Per labs reviewed on admission: CK >1,000, HS troponin 56.2, Cr appears to be at baseline Trop likely elevated 2/2 above, no CP or acute ST changes on EKG. Continue trending troponin Given 500cc NSS in ED, will give an additional 1L NSS at maintenance rate given h/o known systolic dysfunction (EF 40-45% in September 2022) Repeating CK @ 1800 Combined systolic and diastolic heart failure TTE on 10/09/22 showed AFib, mild conc LVH, EF 50-55%, mod dil LA, mild TR, RVSP of 40-50 Daily lasix dose recently decreased to 40mg daily - BP currently lower side 98/72 Re-evaluate volume status tomorrow - currently holding lasix and spironolactone Chronic atrial fibrillation A fib is rate controlled. Recently started on Digoxin with Toprol reduced to 50mg Digoxin level pending History of breast cancer Continue anastrozole DVT Ppx: Eliquis Code status: FULL PCP: Verito Reza Dispo: Admitted to med tele Patient seen in collaboration with Dr. Jones. Please see addendum. History of Present Illness Chief Complaint: fall Primary Care Provider: Anastasia Reza, This is an 82yo F with a PMH of chronic atrial fibrillation on anticoagulation, frequent ventricular ectopy, systolic and diastolic congestive failure (EF: 40- 45%), nocturnal hypoxia and mild MARGARET with oxygen HS, dyslipidemia with statin intolerance, h/p pancreatic tumor s/p distal pancreatectomy/splenectomy, history of CVA CKD III, lymphoma, history of breast cancer on Arimidex and other medical problems who presents after mechanical fall last evening. Patient was at home ambulating to the bathroom around 11PM and tripped over cat, landing on her face. Lives in her daughter's basement apartment and wasn't able to get a family member's attention until the cooperative extension agent and was brought into ED for further evaluation. Has some residual facial discomfort as well as a sore L elbow. Denies any preceding lightheadedness, visual changes. Ambulates with walker at baseline but was not using it. Has had 3 falls in the last few years. Has been working with PT at home 2x/week. No headache, CP, SOB, N/V, abdominal pain, dysuria, diarrhea or constipation. During recent stay at [facility] a few weeks ago, patient was started on low dose Sinemet which seems to have helped mobility and balance per chart review. However, patient now stating her legs have become more difficult to lift over past week or so with increased fluid accumulation. Was seen in follow up by [facility] neuro on 10/26/22 with recommendation to continue current low dose and watch for hallucination, vivid dreams and lightheadedness with standing. Allergies Allergy/AdvReac Type Severity Reaction Status Date / Time ezetimibe AdvReac Intermediate Weakness Verified 05/18/22 13:55 chlorpheniramine AdvReac Mild "Antsy Verified 05/18/22 13:55 [From Chlor-Trimeton] Feeling" Home Medications Medication Instructions Recorded Confirmed Type calcium carbonate 600 mg-vitamin 1 tab PO DAILY 04/23/19 12/20/22 History D3 5 mcg (200 unit) tablet multivitamin 1 tab PO DAILY 04/23/19 12/20/22 History apixaban 5 mg tablet (Eliquis) 2.5 mg PO AMHS 10/17/19 12/20/22 History anastrozole 1 mg tablet (Arimidex) 1 mg PO DAILY 11/04/20 12/20/22 History alendronate 70 mg tablet (Fosamax) 70 mg PO FR@0900 04/05/22 12/20/22 History metoprolol succinate 100 mg 50 mg PO QAM 04/05/22 12/20/22 History tablet,extended release 24 hr vitamin B complex 1 tab PO DAILY 04/05/22 12/20/22 History furosemide 20 mg tablet (Lasix) 40 mg PO DAILY 05/18/22 12/20/22 History spironolactone 25 mg tablet 12.5 mg PO SUMOWETHSA@0900 05/18/22 12/20/22 History aspirin 81 mg tablet,delayed 81 mg PO DAILY 09/12/22 12/20/22 History release carbidopa 25 mg-levodopa 100 mg See Rx Instructions .Route .COMPLEX 12/20/22 12/20/22 History tablet (Sinemet) digoxin 125 mcg (0.125 mg) tablet 125 mcg PO MOWEFR@0900 12/20/22 12/20/22 History melatonin 3 mg tablet 3 mg PO HS PRN Insomnia 12/20/22 12/20/22 History sennosides 8.6 mg tablet (Senokot) 8.6 mg PO BID17 12/20/22 12/20/22 History Past Med/Surg History Medical History (Updated 12/20/22 @ 15:56 by Derek Hamilton DO) Arthritis Atrial fibrillation Breast cancer, right 03/09/2020 Cardiomyopathy Combined systolic and diastolic heart failure CVA (cerebral vascular accident) Follicular lymphoma Diagnosed 01/28/19 - Left 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 Matthew on 04/22/2020 Family History Father , Passed age 88 of Kidney Cancer No problems noted. Mother , Passed age 83 of Alzheimers Disease No problems noted. Brother No problems noted. Sister ALL (acute lymphoblastic leukemia), Onset Age: 66 Now in remission Daughter No problems noted. Son No problems noted. 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 Physical Exam Physical Exam: Please see Dr. Jones' addendum for physical exam. Results & Data Results & Data Vital Signs (Past 12 Hours) Vital Signs Temp Pulse Resp BP Pulse Ox O2 Del Method 12/20/22 12:13 62 4 L 12/20/22 12:00 71 1 L 93 12/20/22 12:00 98/72 L 12/20/22 11:50 74 0 L 88 L 12/20/22 11:41 72 18 12/20/22 11:50 63 12/20/22 11:46 95 Room Air 12/20/22 11:38 36.6 C 79 18 96/70 L 96 Room Air Laboratory Results Short CBC 12/20/22 Range/Units 11:54 WBC 5.52 (4.8-10.8) K/ul Hgb 12.4 (12.0-16.0) g/dl Hct 37.4 (37.0-47.0) % Plt Count 247 (130-400) K/uL BMP 12/20/22 11:54 Sodium 142 Potassium 3.6 Chloride 103 Carbon Dioxide 32 BUN 31 H Creatinine 0.89 Glucose 93 Calcium 8.8 Cardiac Enzymes 12/20/22 Range/Units 11:54 Total Creatine Kinase 1039 H (26-192) U/L Liver Function 12/20/22 Range/Units 11:54 Total Bilirubin 1.0 (0.2-1.0) mg/dl AST 34 (13-39) U/L ALT 19 (7-52) U/L Alkaline Phosphatase 39 (34-104) U/L Albumin 3.5 (3.4-5.0) gm/dl Diagnostic Findings Cervical Spine CT 12/20/22 11:42 CT cervical spine wo con CLINICAL HISTORY: fall TECHNIQUE: Multidetector row helical CT of the cervical spine was performed without administration of intravenous contrast. Coronal and sagittal reformations were obtained. Automated dose lowering techniques and/or adjustment according to patient size were utilized for this exam. Comparison: None available at the time of this dictation. FINDINGS: No acute fractures or subluxations are identified. Degenerative changes are seen in the visualized spine. The alignment is normal. Soft tissues are unremarkable. IMPRESSION: Degenerative changes without evidence of acute bony injury. ACT 112: Negative or not required by law. Electronically signed by: Yaakov Roman M.D. 12/20/2022 12:[address] 12/20/22 11:42 CT facial bones wo con CLINICAL HISTORY: 82 years-old Female presenting with fall. Acute head and facial injury status post fall COMPARISON STUDY: CT head and cervical spine studies of same day TECHNIQUE: High-resolution CT scan of the facial bones is performed. Images are reviewed in the axial, sagittal, and coronal planes. IV contrast was not administered for this examination. A dose lowering technique was utilized adhering to the principles of ALARA. FINDINGS: Postoperative changes within the left facial/left neck distribution the region of the expected parotid gland. Streak artifact from dental amalgam hardware. Atherosclerosis. No acute intracranial abnormality identified. Degenerative changes of the imaged cervical spine. Degeneration of the temporomandibular joints, left greater than right. The mastoid air cells and middle ear cavities are clear. Mild mucosal thickening of the ethmoid air cells. The remaining paranasal sinuses are clear. 1.3 cm apical cyst involves the left canine and first bicuspids. No acute facial bone fracture identified. IMPRESSION: No acute facial bone fracture identified. ACT 112: Negative or not required by law. The above report was generated using voice recognition software. It may contain grammatical, syntax or spelling errors. Electronically signed by: Jacinto Walker M.D. 12/20/2022 1:13 PM Forearm X-Ray 12/20/22 11:42 LEFT FOREARM 2 VIEWS CLINICAL HISTORY: Left arm pain. FINDINGS: AP and lateral views of the left forearm are obtained. No prior studies are available for comparison at the time of dictation. The skeletal structures are osteopenic. There is no radiographic evidence of left forearm fracture. The elbow and wrist joints are grossly maintained. The overlying soft tissues are normal as imaged. IMPRESSION: No acute bony abnormality is identified. Electronically signed by: Sunil Guardado M.D. 12/20/2022 12:[address] 12/20/22 11:42 CT head/brain wo con CLINICAL HISTORY: fall Technique: Contiguous axial CT images of the head were acquired from the base of the skull to the vertex without intravenous contrast administration. Images were viewed in brain, subdural and bone windows. Automated dose lowering techniques and/or adjustment according to patient size were utilized for this exam. Comparison: Comparison is made to CT head 10/19/2019 Findings: Areas of decreased attenuation are present in the periventricular and subcortical white matter bilaterally consistent with small vessel ischemic disease. Generalized cerebral atrophy with commensurate enlargement of the ventricles, sulci, and cisterns is also present. There is no acute intracranial hemorrhage or evidence of acute territorial infarction. No shift of the midline structures, mass effect, or extra-axial abnormalities are shown. Atherosclerotic calcifications are present in the intracranial segments of the internal carotid arteries. Focal encephalomalacia is seen. Imaged portions of the paranasal sinuses and mastoid air cells are clear. The orbits appear normal. There are no acute fractures of the calvaria or scalp swelling. Impression: No acute intracranial hemorrhage, no evidence of acute territorial infarction or other acute intracranial disease process. ACT 112: Negative or not required by law. Electronically signed by: Yaakov Roman M.D. 12/20/2022 12:22 PM Chest X-Ray 12/20/22 11:43 XR chest 1V portable CLINICAL HISTORY: Chest pain, nonspecific TECHNIQUE: Single frontal radiograph of the chest was obtained. Comparison: Comparison is made to chest radiograph 10/07/2022 FINDINGS: No lines and tubes are seen. Cardiomegaly is noted. The lungs are clear. No evidence of pleural effusion or pneumothorax. IMPRESSION: No acute chest disease. ACT 112: Negative or not required by law. Electronically signed by: Yaakov Roman M.D. 12/20/2022 12:40 PM ECG Additional Comments: EKG independently reviewed: rate-controlled atrial fibrillation, no significant change from previous Code Status & VTE Plan VTE Prophylaxis Plan VTE Prophylaxis will be ordered: Yes Supervising Physician Co-Signing Physician Notes I have seen and discussed the case with the collaborating SAMEER. I agree with the above H&P. I have reviewed and confirmed the patients medical history, the findings on physical examination, and the patients diagnosis and treatment plan with Chris ESTRELLA and agree with the information documented. In short, this is a 82 year old woman with multiple complex comorbidities who is presenting after being found down after a mechanical fall. Patient reports ~20 hours of being down on the floor--she lives in her daughter's basement. Patient reports generalized weakness, ongoing for months. Patient mentions multiple cardiac meds being titrated over the course of the last few months, with addition of sinamet 07/2022 and digoxin 07/2022. The weakness progressed with hospitalization in 08/2022 and a stay at rehab. 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 EKG with AFIB with slow ventricular response. CT imaging of face w/o fracture, head w/o acute intracranial process, CXR without edema/effusion/pneumothorax, xray left arm w/o fracture. Noted tenderness with PROM of left elbow on exam without joint swelling/ecchymosis, inferior edema of left eye w/o ecchymosis, mask facies, slow movement of extremities, strength notably 2/5 in bilateral lower extremities, 4/5 right arm, 3/5 left arm, pitting edema in bilateral extremities [ baseline for patient]. Vitals with hypotension, bradycardia to 50s CN grossly intact without focal deficit appreciated. Labs with elevated trop/CK. Plan for PT/OT, digoxin level, follow CK to peak, mIVF low and slow for gentle hydration iso rhabdo, monitor fluid status and resume diuretic as tolerated, hold metoprolol and digoxin--consult cardiology for discussion of digoxin side effect profile contributing to picture. Admit on tele.
[2022-12-20] MEDS ORDERED: SODIUM CHLORIDE 0.9% 1000ML 1,000 ML IV SCH (15:30)
--- NOTE | 2022-12-20 18:04 | Electrocardiogram Report ---
Test Reason : Blood Pressure : / mmHG Vent. Rate : 057 BPM Atrial Rate : 000 BPM P-R Int : 000 ms QRS Dur : 086 ms QT Int : 418 ms P-R-T Axes : 000 -19 -43 degrees QTc Int : 406 ms Atrial fibrillation with slow ventricular response Nonspecific ST and T wave abnormality Abnormal ECG When compared with ECG of 08-OCT-2022 06:29, No significant change was found Confirmed by Chidi Pavon ([id number]) on 12/20/2022 6:04:08 PM Referred By: Confirmed By:Chidi Pavon
[2022-12-20 19:21] LABS: Troponin I High Sensitivity 45.6 pg/ml (0-14)
[2022-12-20] MEDS ORDERED: ONDANSETRON INJ 2 MG/ML 2 ML VIAL IV PRN (20:56)
[2022-12-20] MEDS ORDERED: ACETAMINOPHEN 325 MG TAB PO PRN (20:56)
[2022-12-20] MEDS ORDERED: POLYETHYLENE (MIRALAX) 17 GM PACK PO PRN (20:56)
[2022-12-20] MEDS: CARBIDOPA/LEVODOPA 25/100MG TAB PO SCH (21:20)
[2022-12-20] MEDS: APIXABAN 2.5 MG TAB PO SCH (21:22)
[2022-12-21 07:19] LABS: Hemoglobin 11.5 g/dl (12.0-16.0); Mean Corpuscular Hemoglobin 33.1 pg (25.0-34.0); Mean Corpuscular Hgb Conc 33.8 g/dL (32.0-36.0); Nucleated RBC # (auto) 0.02 K/uL (0-0.12); Nucleated RBC % (auto) 0.4 %; Platelet Count 243 K/uL (130-400); RDW Coefficient of Variation 16.4 % (11.5-14.5); RDW Standard Deviation 58.9 fL (36.4-46.3); Red Blood Count 3.47 M/uL (4.20-5.40); White Blood Count 5.15 K/ul (4.8-10.8)
[2022-12-21 07:46] LABS: BUN Creatinine Ratio 33.3 (10-20); Calcium 8.5 mg/dl (8.6-10.3); Creatinine Clr Calc Pharmacy 46.8 ml/min; Est GFR (African American) 82.6 ml/min; Est GFR (Non-African American) 71.3 ml/min; Potassium 3.4 mmol/L (3.5-5.1)
[2022-12-21] MEDS ORDERED: POTASSIUM CHLORIDE CRTAB 20 MEQ TABCR PO STA (08:39)
[2022-12-21] MEDS ORDERED: METOPROLOL SUCC 50MG EXT REL TAB PO SCH (09:00)
[2022-12-21] MEDS ORDERED: ASPIRIN 81 MG ECTAB PO SCH (09:00)
[2022-12-21] MEDS: ANASTROZOLE 1 MG TAB PO SCH (09:15)
[2022-12-21] MEDS: APIXABAN 2.5 MG TAB PO SCH ×2 (09:15→20:54)
[2022-12-21] MEDS: CALCIUM 600MG + VIT D 400 IU TAB PO SCH (09:15)
[2022-12-21] MEDS: MULTIVITAMIN TAB PO SCH (09:15)
[2022-12-21] MEDS: VITAMIN B COMPLEX TAB PO SCH (09:15)
[2022-12-21] MEDS: CARBIDOPA/LEVODOPA 25/100MG TAB PO SCH ×3 (09:15→20:54)
[2022-12-21] MEDS: METOPROLOL SUCC 50MG EXT REL TAB PO SCH (11:37)
--- NOTE | 2022-12-21 14:49 | Hospitalist Progress Note ---
Date of Service December 21, 2022 Assessment & Plan (1) Fall: (2) Ambulatory dysfunction: (3) Rhabdomyolysis: (4) Elevated troponin: (5) Combined systolic and diastolic heart failure: (6) Chronic a-fib: (7) Generalized weakness: (8) Follicular lymphoma: (9) Breast cancer, right: (10) S/P lumpectomy, right breast: Plan 82yo F with a PMH of chronic atrial fibrillation on anticoagulation, frequent ventricular ectopy, systolic and diastolic congestive failure (EF: 40-45%), n octurnal hypoxia and mild MARGARET with oxygen HS, dyslipidemia with statin intolerance, h/p pancreatic tumor s/p distal pancreatectomy/splenectomy, history of CVA, CKD III, lymphoma, history of breast cancer on Arimidex and other medical problems who presents after mechanical fall. Of note, Patient reports generalized weakness, ongoing for months. Patient mentions multiple cardiac meds being titrated over the course of the last few months, with addition of sinamet 07/2022 and digoxin 07/2022. The weakness progressed with hospitalization in 08/2022 and a stay at rehab. 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 She is being managed for the following: Mechanical fall Known ambulatory dysfunction Tripped at home, landed on face and was down overnight Reviewed CT head, CT cervical spine, L forearm XR, Face CT, CXR - all without evidence of acute bony injury or bleed Known ambulatory dysfunction with concern for parkinsonian features- has been trailing low dose Sinemet for the past few months with questionable improvement, pt on regular f/u w/ neuro, f/u neuro on DC. Has been undergoing outpatient PT at home 2x/week, is supposed to be ambulating with a walker but uses cane frequently. PT/OT evaluation . Get ortho vitals. 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 Per labs reviewed on admission: CK >1,000, HS troponin 56.2, Cr appears to be at baseline. Trops trended down. Trop likely elevated 2/2 above, no CP or acute ST changes on EKG. s/p gentle ivf given h/o known systolic dysfunction. CPK trending down. follow in AM. Combined systolic and diastolic heart failure TTE on 10/09/22 showed AFib, mild conc LVH, EF 50-55%, mod dil LA, mild TR, RVSP of 40-50 Daily lasix dose recently decreased to 40mg daily today w/ ble 1-2+ pitting edema, diuresis need be resumed. Chronic atrial fibrillation A fib is rate controlled. Recently started on Digoxin with Toprol reduced to 50mg Digoxin level low, will resume her home digoxin. History of breast cancer Continue anastrozole DVT Ppx: Eliquis Code status: FULL PCP: Verito Reza Dispo: PT/OT. Admission and Anticipated Discharge Date Admission Date: December 20, 2022 Subjective Patient seen and examined at bedside as a follow-up of mechanical fall in the setting of nonambulatory dysfunction and mild rhabdomyolysis. 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 She reports eating okay. Physical Exam Physical Exam: GENERAL: Alert and oriented x3. NAD, on RA. Old/frail/weak. HEENT: No pallor, no icterus. Pupils equal, round and reactive to light. Oral mucosa moist. NECK: No JVD, no neck masses. HEART: S1 and S2 heard. irregular rate and rhythm. No murmur, no gallop. RESPIRATORY SYSTEM: Normal AP diameter. No accessory muscle use. No wheezing, no crackles. ABDOMEN: Soft, bowel sounds present, nontender, no distention. CENTRAL NERVOUS SYSTEM: No facial droop. Speech is clear. Obeys simple commands. Moves extremities - ble 3/5. EXTREMITIES: 1-2+ edema, no erythema seen. Results & Data Results & Data Vital Signs (Past 12 Hours) Vital Signs Temp Pulse Pulse Resp BP Pulse Ox O2 Del Method 12/21/22 11:11 36.7 C 79 17 118/80 94 Room Air 12/21/22 07:00 84 12/21/22 07:27 36.9 C 75 17 110/71 93 Room Air 12/21/22 02:55 36.6 C 79 20 110/75 95 Room Air
[2022-12-21] MEDS ORDERED: DIGOXIN 0.125 MG TAB PO SCH ×2 (16:00)
[2022-12-21] MEDS: FUROSEMIDE 40 MG TAB PO SCH (17:19)
[2022-12-22 07:40] LABS: Hematocrit (blood only) 34.2 % (37.0-47.0); Hemoglobin 11.8 g/dl (12.0-16.0); Mean Corpuscular Hgb Conc 34.5 g/dL (32.0-36.0); Mean Corpuscular Volume 95.5 fL (80.0-100.0); Mean Platelet Volume 10.9 fL (9.4-12.4); Platelet Count 247 K/uL (130-400); RDW Coefficient of Variation 16.7 % (11.5-14.5); RDW Standard Deviation 58.7 fL (36.4-46.3); Red Blood Count 3.58 M/uL (4.20-5.40); White Blood Count 5.24 K/ul (4.8-10.8)
[2022-12-22 08:12] LABS: BUN Creatinine Ratio 22.9 (10-20); Calcium 8.4 mg/dl (8.6-10.3); Est GFR (African American) 76.6 ml/min; Est GFR (Non-African American) 66.1 ml/min; Magnesium 2.1 mg/dl (1.7-2.4); Phosphorus 2.6 mg/dl (2.5-4.9); Potassium 4.3 mmol/L (3.5-5.1)
[2022-12-22] MEDS ORDERED: SPIRONOLACTONE 12.5 MG TAB PO SCH (09:00)
[2022-12-22] MEDS: METOPROLOL SUCC 50MG EXT REL TAB PO SCH (09:10)
[2022-12-22] MEDS: VITAMIN B COMPLEX TAB PO SCH (09:11)
[2022-12-22] MEDS: ANASTROZOLE 1 MG TAB PO SCH (09:11)
[2022-12-22] MEDS: CALCIUM 600MG + VIT D 400 IU TAB PO SCH (09:11)
[2022-12-22] MEDS: APIXABAN 2.5 MG TAB PO SCH ×2 (09:12→19:58)
[2022-12-22] MEDS: CARBIDOPA/LEVODOPA 25/100MG TAB PO SCH ×3 (09:12→19:58)
[2022-12-22] MEDS: MULTIVITAMIN TAB PO SCH (09:12)
[2022-12-22] MEDS: FUROSEMIDE 40 MG TAB PO SCH (09:13)
--- NOTE | 2022-12-22 16:58 | Hospitalist Progress Note ---
Date of Service December 22, 2022 Assessment & Plan (1) Fall: (2) Ambulatory dysfunction: (3) Rhabdomyolysis: (4) Elevated troponin: (5) Combined systolic and diastolic heart failure: (6) Chronic a-fib: (7) Generalized weakness: (8) Follicular lymphoma: (9) Breast cancer, right: (10) S/P lumpectomy, right breast: Plan 82yo F with a PMH of chronic atrial fibrillation on anticoagulation, frequent ventricular ectopy, systolic and diastolic congestive failure (EF: 40-45%), n octurnal hypoxia and mild MARGARET with oxygen HS, dyslipidemia with statin intolerance, h/p pancreatic tumor s/p distal pancreatectomy/splenectomy, history of CVA, CKD III, lymphoma, history of breast cancer on Arimidex and other medical problems who presents after mechanical fall. Of note, Patient reports generalized weakness, ongoing for months. Patient mentions multiple cardiac meds being titrated over the course of the last few months, with addition of sinamet 07/2022 and digoxin 07/2022. The weakness progressed with hospitalization in 08/2022 and a stay at rehab. 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 She is being managed for the following: Mechanical fall Known ambulatory dysfunction Tripped at home, landed on face and was down overnight Reviewed CT head, CT cervical spine, L forearm XR, Face CT, CXR - all without evidence of acute bony injury or bleed Known ambulatory dysfunction with concern for parkinsonian features- has been trailing low dose Sinemet for the past few months with questionable improvement, pt on regular f/u w/ neuro, f/u neuro on DC. Has been undergoing outpatient PT at home 2x/week, is supposed to be ambulating with a walker but uses cane frequently. PT/OT evaluation . ortho v borderline pos - slow transition w/ change in position recommended. repeat ortho v. 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 Per labs reviewed on admission: CK >1,000, HS troponin 56.2, Cr appears to be at baseline. Trops trended down. Trop likely elevated 2/2 above, no CP or acute ST changes on EKG. s/p gentle ivf given h/o known systolic dysfunction. CPK trended down. Combined systolic and diastolic heart failure TTE on 10/09/22 showed AFib, mild conc LVH, EF 50-55%, mod dil LA, mild TR, RVSP of 40-50 Daily lasix dose recently decreased to 40mg daily today w/ ble trace/1+ pitting edema, diuresis resumed. Chronic atrial fibrillation A fib is rate controlled. Recently started on Digoxin with Toprol reduced to 50mg Digoxin level low, will resume her home digoxin. History of breast cancer Continue anastrozole DVT Ppx: Eliquis Code status: FULL PCP: Verito Reza Dispo: PT/OT. CM to assist. Admission and Anticipated Discharge Date Admission Date: December 20, 2022 Subjective Patient seen and examined at bedside as a follow-up of mechanical fall in the setting of nonambulatory dysfunction and mild rhabdomyolysis. Patient was lying in bed, on room air, NAD, reports improving weakness and tiredness, denies any new fever or chills or acute changes in her bowel or bladder habits. She reports eating okay. Physical Exam Physical Exam: GENERAL: Alert and oriented x3. NAD, on RA. Old/frail/weak. HEENT: No pallor, no icterus. Pupils equal, round and reactive to light. Oral mucosa moist. NECK: No JVD, no neck masses. HEART: S1 and S2 heard. irregular rate and rhythm. No murmur, no gallop. RESPIRATORY SYSTEM: Normal AP diameter. No accessory muscle use. No wheezing, no crackles. ABDOMEN: Soft, bowel sounds present, nontender, no distention. CENTRAL NERVOUS SYSTEM: No facial droop. Speech is clear. Obeys simple commands. Moves extremities - ble 3/5. EXTREMITIES: 1+ edema, no erythema seen. Results & Data Results & Data Vital Signs (Past 12 Hours) Vital Signs Temp Pulse Resp BP Pulse Ox O2 Del Method 12/22/22 15:13 37.1 C 70 16 105/67 95 Room Air 12/22/22 12:06 37.1 C 75 16 114/74 96 Room Air 12/22/22 07:24 37.0 C 20 92 Room Air
[2022-12-23] MEDS ORDERED: ALENDRONATE SODIUM 70 MG TAB PO SCH (06:30)
[2022-12-23] MEDS: VITAMIN B COMPLEX TAB PO SCH (08:00)
[2022-12-23] MEDS: METOPROLOL SUCC 50MG EXT REL TAB PO SCH (08:00)
[2022-12-23] MEDS: FUROSEMIDE 40 MG TAB PO SCH (08:00)
[2022-12-23] MEDS: MULTIVITAMIN TAB PO SCH (08:00)
[2022-12-23] MEDS: CALCIUM 600MG + VIT D 400 IU TAB PO SCH (08:00)
[2022-12-23] MEDS: APIXABAN 2.5 MG TAB PO SCH (08:01)
[2022-12-23] MEDS: ANASTROZOLE 1 MG TAB PO SCH (08:01)
[2022-12-23] MEDS: CARBIDOPA/LEVODOPA 25/100MG TAB PO SCH ×2 (08:01→15:00)
[2022-12-23 08:04] VITALS: O2SAT 94
[2022-12-23 08:31] LABS: Hematocrit (blood only) 38.7 % (37.0-47.0); Hemoglobin 12.9 g/dl (12.0-16.0); Mean Corpuscular Hemoglobin 32.3 pg (25.0-34.0); Mean Corpuscular Hgb Conc 33.3 g/dL (32.0-36.0); Mean Corpuscular Volume 96.8 fL (80.0-100.0); Mean Platelet Volume 10.6 fL (9.4-12.4); Platelet Count 252 K/uL (130-400); RDW Coefficient of Variation 16.2 % (11.5-14.5); RDW Standard Deviation 58.1 fL (36.4-46.3); White Blood Count 5.97 K/ul (4.8-10.8)
[2022-12-23 08:56] LABS: BUN Creatinine Ratio 29.6 (10-20); Calcium 8.6 mg/dl (8.6-10.3); Creatinine Clr Calc Pharmacy 45.1 ml/min; Est GFR (African American) 78.9 ml/min; Est GFR (Non-African American) 68.1 ml/min; Magnesium 2.2 mg/dl (1.7-2.4); Potassium 4.4 mmol/L (3.5-5.1)
[2022-12-23 11:41] VITALS: BP 105/75; PULSE 87; TEMP 97.7
--- NOTE | 2022-12-23 11:57 | XRay Report ---
XR ankle RT min 3V routine CLINICAL HISTORY: rt ankle pain; stat due t0 dc to [facility] today TECHNIQUE: 3 views of the right ankle were obtained. Comparison: None available at the time of this dictation. FINDINGS: No acute fractures are present. Degenerative changes are seen. The ankle mortise is intact. Soft tiss ue swelling is seen about the ankle. IMPRESSION: Soft tissue swelling is seen without evidence of underlying bony abnormality. Degenerative changes ar e seen. ACT 112: Negative or not required by law. Electronically signed by: Yaakov Roman M.D. 12/23/2022 11:56 AM
--- NOTE | 2022-12-23 13:14 | Discharge Summary ---
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 Patient was at home ambulating to the bathroom around 11PM and tripped over cat, landing on her face. Lives in her daughter's basement apartment and wasn't able to get a family member's attention until the insurance salesperson and was brought into ED for further evaluation. Has some residual facial discomfort as well as a sore L elbow. Denies any preceding lightheadedness, visual changes. Ambulates with walker at baseline but was not using it. Has had 3 falls in the last few years. Has been working with PT at home 2x/week. No headache, CP, SOB, N/V, abdominal pain, dysuria, diarrhea or constipation. During recent stay at [facility] a few weeks ago, patient was started on low dose Sinemet which seems to have helped mobility and balance per chart review. How ever, patient now stating her legs have become more difficult to lift over past week or so with increased fluid accumulation. Was seen in follow up by Rebecca neuro on 10/26/22 with recommendation to continue current low dose and watch for hallucination, vivid dreams and lightheadedness with standing. Admission Exam Per Admitting Provider Noted tenderness with PROM of left elbow on exam without joint swelling/ecchymosis, inferior edema of left eye w/o ecchymosis, mask facies, slow movement of extremities, strength notably 2/5 in bilateral lower extremities, 4/5 right arm, 3/5 left arm, pitting edema in bilateral extremities [ baseline for patient]. Vitals with hypotension, bradycardia to 50s CN grossly intact without focal deficit appreciated. Principal Diagnosis Fall, ambulatory dysfunction Mild rhabdomyolysis History of combined systolic and diastolic heart failure Discharge Exam GENERAL: Alert and oriented x3. NAD, on RA. Old/frail/weak. HEENT: No pallor, no icterus. Pupils equal, round and reactive to light. Oral mucosa moist. NECK: No JVD, no neck masses. HEART: S1 and S2 heard. irregular rate and rhythm. No murmur, no gallop. RESPIRATORY SYSTEM: Normal AP diameter. No accessory muscle use. No wheezing, no crackles. ABDOMEN: Soft, bowel sounds present, nontender, no distention. CENTRAL NERVOUS SYSTEM: No facial droop. Speech is clear. Obeys simple commands. Moves extremities - ble 3-4/5. EXTREMITIES: trace/1+ edema, no erythema seen. Discharge Data Allergies Allergy/AdvReac Type Severity Reaction Status Date / Time ezetimibe AdvReac Intermediate Weakness Verified 05/18/22 13:55 chlorpheniramine AdvReac Mild "Antsy Verified 05/18/22 13:55 [From Chlor-Trimeton] Feeling" Consultations 12/20/22 13:50 ED Decision to Admit Stat Ordered Studies 12/20/22 11:42 CT cervical spine wo con Stat CT face [CT facial bones wo con] Stat CT head/brain wo con Stat Hospital Course (1) Fall: (2) Ambulatory dysfunction: (3) Rhabdomyolysis: (4) Elevated troponin: (5) Combined systolic and diastolic heart failure: (6) Chronic a-fib: (7) Generalized weakness: (8) Follicular lymphoma: (9) Breast cancer, right: (10) S/P lumpectomy, right breast: Plan 82yo F with a PMH of chronic atrial fibrillation on anticoagulation, frequent ventricular ectopy, systolic and diastolic congestive failure (EF: 40-45%), nocturnal hypoxia and mild MARGARET with oxygen HS, dyslipidemia with statin intolerance, h/p pancreatic tumor s/p distal pancreatectomy/splenectomy, history of CVA, CKD III, lymphoma, history of breast cancer on Arimidex and other medical problems who presents after mechanical fall. Of note, Patient reports generalized weakness, ongoing for months. Patient mentions multiple cardiac meds being titrated over the course of the last few months, with addition of sinamet 07/2022 and digoxin 07/2022. The weakness progressed with hospitalization in 08/2022 and a stay at rehab. 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 She was managed for the following: Mechanical fall Known ambulatory dysfunction Tripped at home, landed on face and was down overnight Reviewed CT head, CT cervical spine, L forearm XR, Face CT, CXR - all without evidence of acute bony injury or bleed Known ambulatory dysfunction with concern for parkinsonian features- has been trailing low dose Sinemet for the past few months with questionable improvement, pt on regular f/u w/ neuro, f/u neuro on DC. Has been undergoing outpatient PT at home 2x/week, is supposed to be ambulating with a walker but uses cane frequently. PT/OT evaluation . ortho v borderline pos - slow transition w/ change in position recommended. repeat ortho was neg. Fall precaution. c/w PT upon DC. F/u w/ neuro closely upon DC. 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 Per labs reviewed on admission: CK >1,000, HS troponin 56.2, Cr appears to be at baseline. Trops trended down. Trop likely elevated 2/2 above, no CP or acute ST changes on EKG. s/p gentle ivf given h/o known systolic dysfunction. CPK trended down. Combined systolic and diastolic heart failure TTE on 10/09/22 showed AFib, mild conc LVH, EF 50-55%, mod dil LA, mild TR, RVSP of 40-50 Daily lasix dose recently decreased to 40mg daily today w/ ble trace/1+ pitting edema, diuresis resumed. Chronic atrial fibrillation A fib is rate controlled. Recently started on Digoxin with Toprol reduced to 50mg Digoxin level low, will resume her home digoxin. History of breast cancer Continue anastrozole DVT Ppx: Eliquis Code status: FULL PCP: Verito Reza Dispo: PT/OT. CM to assist. Patient being discharged to [facility] with following instruction at the point of discharge: Follow-up with your primary care physician within a week time and likely you will need labs CBC/CMP/magnesium/phosphorus. Incorporate fall precaution at your place of residence. Continue with regular physical therapy. Closely follow-up with the neurology, you might likely benefit from outpatient EMG evaluation, coordinate with your neurology office. Maintain fluid intake of 1500 to 2000 mL a day. Maintain heart healthy diet, low-sodium diet. Take your medications as prescribed. Please make sure that you are able to get your medications today by calling your pharmacy before you leave the hospital so that your treatment continuity is not broken. Home Health Attestation I certify that this patient is under my care and that I, or a physicians drug safety assistant working with me, had a face to-face encounter that meets the home health [id number] encounter requirements with this patient. The encounter with the patient was in whole, or in part, for the following medical condition, which is the primary reason for home health care (list med ical condition): I certify that, based on my findings, the following services are medically necessary home health services: My clinical findings support the need for the above services because: Further, I certify that my clinical findings support that this patient is homebound (i.e. absences from home require considerable and taxing effort and are for medical reasons or scientology services or infrequently or of short duration when for other reasons) because: Certification for Home Health Services: Based on the above findings, I certify that this patient is confined to the home and needs intermittent usp care, physical therapy and/or speech the rapy or continues to need occupational therapy. The patient is under my care, and I have initiated the establishment of the plan of care. This patient will be followed by a physician who will periodically review the plan of care. Total Time Total Time Spent Total Time Spent (In Minutes): 45 Discharge Plan Discharge Items Patient Disposition: Transfer Inpatient Rehab Fac Reason For Visit: FALL, MILD RHABDO Discharge Diagnosis: Fall, ambulatory dysfunction Mild rhabdomyolysis History of combined systolic and diastolic heart failure Activity: As commented below Activity Comment: Fall precaution. Continue with physical therapy. Non-emergency contact: Primary Care Provider Call non-emergency contact if: you have any medication questions, your symptoms worsen, your pain is not controlled and your temperature is above 101 Follow-up/Referrals: Anastasia Reza, [Primary Care Provider] - Diet: Heart Healthy and Low Sodium (2gm) Diet Texture: Easy to Chew Addtl Attending Provider Instructions: Follow-up with your primary care physician within a week time and likely you will need labs CBC/CMP/magnesium/phosphorus. Incorporate fall precaution at your place of residence. Continue with regular physical therapy. Closely follow-up with the neurology, you might likely benefit from outpatient EMG evaluation, coordinate with your neurology office. Maintain fluid intake of 1500 to 2000 mL a day. Maintain heart healthy diet, low-sodium diet. Take your medications as prescribed. Please make sure that you are able to get your medications today by calling your pharmacy before you leave the hospital so that your treatment continuity is not broken. Pending Studies at Discharge: No Stand-Alone Forms: My [facility] Skilled Items Patient informed of condition?: Yes DNR: No Discharge Level of Care: Acute rehab Communicable Disease: No Discharge Prognosis: Stable Lines: None Urinary Catheter: No Medications and DC Order Prescriptions: Continued Eliquis 5 mg tablet 2.5 mg PO [facility] Rx Instructions: lowered 2.5 am and pm anastrozole [Arimidex] 1 mg tablet 1 mg PO DAILY furosemide [Lasix] 20 mg tablet 40 mg PO DAILY spironolactone 25 mg tablet 12.5 mg PO SUMOWETHSA@0900 multivitamin Tablet 1 tab PO DAILY calcium carbonate-vitamin D3 600 mg(1,500mg) -200 unit Tablet 1 tab PO DAILY metoprolol succinate 100 mg Tablet Extended Release 24 Hr 50 mg PO QAM alendronate [Fosamax] 70 mg Tablet 70 mg PO FR@0900 vitamin B complex Tablet 1 tab PO DAILY aspirin 81 mg Tablet,Delayed Release (Dr/Ec) 81 mg PO DAILY digoxin 125 mcg (0.125 mg) tablet 125 mcg PO MOWEFR@0900 carbidopa-levodopa [Sinemet] 25-100 mg tablet See Rx Instructions .ROUTE .COMPLEX Rx Instructions: 1/2 tab 3 times daily melatonin 3 mg Tablet 3 mg PO HS PRN (Reason: Insomnia) sennosides [Senokot] 8.6 mg tablet 8.6 mg PO [id number] Discharge Orders: Discharge Order (Routine); Ordered 12/23/22 Ordered By: Goran Oh Admission Data Admit Date/Time: 12/20/22 14:20 Attending Provider: Goran Oh Admit Provider: Caroline Jones Primary Care Provider: Anastasia Reza [facility] Caroline Jones ; [facility]
== END 2022-12-23 15:29 | DRG 558 ==
LOC: ED 11:32 → SUATTDRO 14:20 → 2S 14:20

== ENCOUNTER 2023-08-17 19:11 | Inpatient (IN) ==
--- NOTE | 2023-08-17 22:04 | CT Scan Report ---
CT SCAN OF THE BRAIN WITHOUT IV CONTRAST CLINICAL HISTORY: Fall. COMPARISON STUDY: CT of the brain dated 08/10/2023. TECHNIQUE: Unenhanced axial CT scan of the brain is performed from the vertex to the skull base. A do se lowering technique was utilized adhering to the principles of ALARA. CT DOSE: 547.75 mGy.cm FINDINGS: Brain parenchyma: There is a subacute/evolving hemorrhage centered in the left frontoparietal cortex on image #16. This measures up to 1.5 cm. There is mild surrounding edema. No new foci of hemorrhage are identified. There is no midline shift or evidence of acute territorial ischemia by CT criteria. T here is age-related involutional change noting moderate subcortical and periventricular microangiopat hic disease. There are small chronic right posterior parietal and occipital infarcts. There are also chronic lacunar infarcts in both cerebral hemispheres. No extra-axial fluid collection is seen. Ventricles, sulci, cisterns: Prominent secondary to involutional change. Intracranial vasculature: There is atherosclerotic calcification of the cavernous carotid arteries. Calvarium: The skeletal structures are osteopenic. No depressed calvarial fracture is seen. Sinuses and mastoids: The visualized paranasal sinuses are clear. The mastoid air cells are well pneu matized. Orbits: The bony orbits are grossly intact. IMPRESSION: 1. There is a subacute/evolving infarct centered in the left frontoparietal cortex as above. This has decreased in size as compared to the 08/10/2023 examination. 2. No new foci of hemorrhage are identified. There is no midline shift or evidence of acute territori al ischemia by CT criteria. ACT 112: Negative or not required by law. Electronically signed by: Sunil Guardado M.D. 08/17/2023 10:01 PM
--- NOTE | 2023-08-17 22:29 | XRay Report ---
LEFT KNEE 2 VIEWS CLINICAL HISTORY: Left knee injury. FINDINGS: AP and crosstable lateral views of the left knee are obtained. No prior studies are availab le for comparison at the time of dictation. The skeletal structures are heterogeneously osteopenic. N o fracture is seen. There is minimal degenerative joint space narrowing. There is no significant join t effusion. Mild soft tissue swelling is seen around the knee. IMPRESSION: No acute bony abnormality is identified. Electronically signed by: Sunil Guardado M.D. 08/17/2023 10:28 PM
--- NOTE | 2023-08-17 22:30 | XRay Report ---
RIGHT KNEE 2 VIEWS CLINICAL HISTORY: Right knee injury. FINDINGS: AP and crosstable lateral views of the right knee are obtained. No prior studies are availa ble for comparison at the time of dictation. The skeletal structures are heterogeneously osteopenic. No fracture is seen. There is minimal degenerative joint space narrowing. There are patellar enthesop hytes. There is no significant joint effusion. Mild soft tissue swelling is seen around the knee. IMPRESSION: No acute bony abnormality is identified. Electronically signed by: Sunil Guardado M.D. 08/17/2023 10:29 PM
--- NOTE | 2023-08-17 23:07 | Emergency Department Note ---
Impression & Plan Fall from standing, Acute bilateral knee pain, Head injury, Ambulatory dysfunction ED Provider Note HISTORY OF PRESENT ILLNESS: Patient is an 83-year-old female presenting with bilateral knee pain after a fall. Patient reports she was ambulating from the bathroom back to her bed at [facility] when she lost her footing on the ground and fell, landing on her bilateral knees and then falling backwards and striking the back of her head. She is not on any anticoagulation. She denies loss of consciousness. She reports she was unable to get up on her own and the call courtney in her room is broken so she was calling for help for 3 to 4 hours until someone came to find her. She denies any chest pain, shortness of breath or lightheadedness prior to the fall. She is alert and oriented and gives her own history on arrival to the ER. ROS: as above PHYSICAL EXAM: Constitutional: Patient appears in no acute distress. HENT: Head: Normocephalic and atraumatic. Eyes: EOMI, PERRL Mouth/Throat: Mucous membranes moist. Neck: Trachea midline. Neck supple. No midline cervical spine tenderness to palpation. Cardiovascular: Irregular rhythm. No murmurs, rubs or gallops. Intact distal pulses. Pulmonary/Chest: No respiratory distress. Breath sounds clear and equal bilaterally. No wheezes or rales. Abdominal: Abdomen soft, no tenderness, rebound or guarding. Patient is able to straight leg raise bilaterally without pain in the pelvis or low back. Musculoskeletal: No edema, tenderness or deformity noted. Skin: Warm and dry. No rash, erythema, pallor or cyanosis Psychiatric: Appropriate mood and affect for situation. Neurological: Alert and keenly responsive. CN II-XII grossly intact, moving all extremities equally and fully. MDM: - Vitals signs stable. - History obtained via patient. History as above. - Chronic conditions affecting care: CHF; breast cancer; Afib; CVA; TIA; follicular lymphoma - Differential diagnoses include, but are not limited to: CVA; intracranial hemorrhage; ACS; rhabdomyolysis; electrolyte abnormality - Order placed for continuous cardiac monitoring. At this time, monitor showed rate of 80 bpm with irregular rhythm, per my interpretation. - External medical records reviewed. Discharge summary dated 08/14/2023 was reviewed. Patient presented to [facility] in [place] for left frontoparietal intraparenchymal hemorrhage with the etiology possibly being a CAA versus a cavernoma. Patient is to follow-up in 1 month for an MRI for evaluation of her brain bleed. She had her Eliquis stopped. She was continued on aspirin and a statin. - EKG interpreted by myself showed atrial fibrillation. Rate 74 bpm. QT 368. No acute ischemic changes. Did have an occasional PVC. - Laboratory workup interpreted by myself showed leukopenia (WBC 4.73); slight hyperkalemia (K 5.2); normal troponin; normal CK; normal creatinine - Xray of bilateral knees negative for fracture, per my interpretation - CT head wo contrast showed subacute/evolving infarct in left frontoparietal cortex which is decreased in size as compared to the scan on 08/10/2023, per radiology. - Patient is alert and oriented and giving her own history. She does report it was just a mechanical fall and laboratory workup is negative. She denies any chest pain or shortness of breath. Denies any other pain other than her knees. Patient reports she is ambulatory with a walker at baseline. - Attempted to ambulate the patient in the emergency department with a walker and nursing staff. However, the patient was very unsteady on her feet and concerned that she is a fall risk at this time. Will admit for ambulatory dysfunction. - Discussed case with egg caser about patient's need for admission. - Hospitalist consulted for admission. - Patient to be [facility] hospital[facility] service for further evaluation and management. ASSESSMENT AND PLAN: Diagnosis: Fall from standing; bilateral knee pain; ambulatory dysfunction Plan: Admit Past Med/Surg History Medical History Combined systolic and diastolic heart failure Breast cancer, right 03/09/2020 Follicular lymphoma grade 3a Atrial fibrillation Neuroendocrine carcinoma of pancreas CVA (cerebral vascular accident) Cardiomyopathy Ventricular ectopy TIA (transient ischemic attack) 2009 - No Deficits Arthritis Follicular lymphoma Diagnosed 01/28/19 - Left Parotid Gland Surgical History S/P lumpectomy, right breast With SLN biopsy Dr. Matthew on 04/22/2020 Post-splenectomy History of superficial parotidectomy 01/28/19 - with facial nerve dissection and preservation History of tonsillectomy as a child History of colonoscopy 2018 History of hip replacement, total Left - 2007, Right - 2008 Family History Father , Passed age 88 of Kidney Cancer No problems noted. Mother , Passed age 83 of Alzheimers Disease No problems noted. Brother No problems noted. Sister ALL (acute lymphoblastic leukemia), Onset Age: 66 Now in remission Daughter No problems noted. Son No problems noted. 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 Feels Safe at Home: Yes Childhood Exposure to Second-Hand Smoke: Yes (Father Smoked in Home ) caffeine: Yes (4 cups of coffee/day ) Dental Care, Regularly: Yes Assistive Devices: Cane, Oxygen - at Night and Walker Allergies Allergies Allergy/AdvReac Type Severity Reaction Status Date / Time ezetimibe AdvReac Intermediate Weakness Verified 05/18/23 14:12 chlorpheniramine AdvReac Mild "Antsy Verified 05/18/23 14:12 [From Chlor-Trimeton] Feeling" Home Meds Home Medications Medication Instructions Recorded Confirmed calcium carbonate 600 mg-vitamin 1 tab PO DAILY 04/23/19 08/18/23 D3 5 mcg (200 unit) tablet multivitamin 1 tab PO DAILY 04/23/19 08/18/23 anastrozole 1 mg tablet (Arimidex) 1 mg PO DAILY 11/04/20 08/18/23 alendronate 70 mg tablet (Fosamax) 70 mg PO FR@0900 04/05/22 08/18/23 metoprolol succinate 100 mg 50 mg PO QAM 04/05/22 08/18/23 tablet,extended release 24 hr vitamin B complex 1 tab PO DAILY 04/05/22 08/18/23 spironolactone 25 mg tablet 12.5 mg PO SUMOWETHSA@0900 05/18/22 08/18/23 aspirin 81 mg tablet,delayed 81 mg PO DAILY 09/12/22 08/18/23 release digoxin 125 mcg (0.125 mg) tablet 125 mcg PO MOWEFR@0900 12/20/22 08/18/23 melatonin 3 mg tablet 3 mg PO HS PRN Insomnia 12/20/22 08/18/23 sennosides 8.6 mg tablet (Senokot) 8.6 mg PO BID17 12/20/22 08/18/23 apixaban 5 mg tablet (Eliquis) 5 mg PO AMHS 05/18/23 08/18/23 docusate sodium 100 mg capsule 100 mg PO BID 05/18/23 08/18/23 pravastatin 80 mg tablet 80 mg PO DAILY 05/18/23 08/18/23 carbidopa 25 mg-levodopa 100 mg 0.5 tab PO TID 08/18/23 08/18/23 tablet furosemide 40 mg tablet 40 mg PO QAM 08/18/23 08/18/23 Results & Data (ED) Vital Signs Vital Signs - 24 hr 08/17/23 19:16 08/17/23 19:16 08/17/23 19:18 Temperature 36.8 C Temperature Source Oral Pulse Rate 82 83 82 Respiratory Rate 18 20 Blood Pressure 114/83 114/83 Blood Pressure Mean 95 93 Pulse Oximetry 98 97 Oxygen Delivery Method Room Air Sepsis Recent Fever Within 48 Hours No Sepsis New/Unexplained Change in Mental Status N/A Sepsis Action Taken by Nursing No Action Required 08/17/23 20:00 08/17/23 21:00 08/17/23 21:36 Temperature Temperature Source Pulse Rate 72 75 67 Respiratory Rate 20 20 18 Blood Pressure 91/64 L 93/72 L 122/85 Blood Pressure Mean 72 79 97 Pulse Oximetry 96 96 97 Oxygen Delivery Method Sepsis Recent Fever Within 48 Hours Sepsis New/Unexplained Change in Mental Status Sepsis Action Taken by Nursing 08/17/23 22:31 08/17/23 23:21 Temperature Temperature Source Pulse Rate 78 79 Respiratory Rate 20 Blood Pressure 118/81 Blood Pressure Mean 98 Pulse Oximetry 96 Oxygen Delivery Method Sepsis Recent Fever Within 48 Hours Sepsis New/Unexplained Change in Mental Status Sepsis Action Taken by Nursing Laboratory Data 08/17/23 23:05 08/17/23 23:05 Lab Results 08/17/23 Range/Units 23:05 WBC 4.73 L (4.8-10.8) K/ul RBC 4.00 L (4.20-5.40) M/uL Hgb 13.0 (12.0-16.0) g/dl Hct 39.8 (37.0-47.0) % MCV 99.5 (80.0-100.0) fL MCH 32.5 (25.0-34.0) pg MCHC 32.7 (32.0-36.0) g/dL RDW Std Deviation 59.6 H (36.4-46.3) fL RDW Coeff of Pablo 16.1 H (11.5-14.5) % Plt Count 226 (130-400) K/uL MPV 10.9 (9.4-12.4) fL Immature Gran % (Auto) 0.4 % Neut % (Auto) 58.1 % Lymph % (Auto) 23.0 % Hettinger % (Auto) 15.2 % Eos % (Auto) 2.7 % Baso % (Auto) 0.6 % Neut # (Auto) 2.74 (1.40-6.50) K/uL Lymph # (Auto) 1.09 L (1.20-3.40) K/uL Hettinger # (Auto) 0.72 H (0.11-0.59) K/uL Eos # (Auto) 0.13 (0.00-0.50) K/uL Baso # (Auto) 0.03 (0.00-0.20) K/uL Immature Gran # (Auto) 0.02 (0.01-0.20) K/uL Sodium 137 (136-145) mmol/L Potassium 5.2 H (3.5-5.1) mmol/L Chloride 103 (98-107) mmol/L Carbon Dioxide 28 (21-32) mmol/L Anion Gap 6 (3-11) BUN 27 H (6-23) mg/dl Creatinine 0.99 (0.6-1.2) mg/dl Est Cr Clr Drug Dosing 38.7 ml/min Est GFR ( Amer) 61.5 ml/min Est GFR (Non-Af Amer) 53.1 ml/min BUN/Creatinine Ratio 27.3 H (10-20) Glucose 99 (70-99(Fasting)) mg/dl Calcium 9.3 (8.6-10.3) mg/dl Magnesium 2.3 (1.7-2.4) mg/dl Total Bilirubin 0.6 (0.2-1.0) mg/dl AST 28 (13-39) U/L ALT 20 (7-52) U/L Alkaline Phosphatase 37 (34-104) U/L Total Creatine Kinase 62 (26-192) U/L Troponin I High Sens 11.9 (0-14) pg/ml Total Protein 6.8 (6.0-8.3) gm/dl Albumin 3.5 (3.4-5.0) gm/dl Globulin 3.3 (2.5-4.0) gm/dl Albumin/Globulin Ratio 1.1 (0.9-2) Imaging Data Radiologist's Impression: Knee X-Ray 08/17/23 20:41 LEFT KNEE 2 VIEWS CLINICAL HISTORY: Left knee injury. FINDINGS: AP and crosstable lateral views of the left knee are obtained. No prior studies are available for comparison at the time of dictation. The skeletal structures are heterogeneously osteopenic. No fracture is seen. There is minimal degenerative joint space narrowing. There is no significant joint effusion. Mild soft tissue swelling is seen around the knee. IMPRESSION: No acute bony abnormality is identified. Electronically signed by: Sunil Guardado M.D. 08/17/2023 10:[address] 08/17/23 20:42 CT SCAN OF THE BRAIN WITHOUT IV CONTRAST CLINICAL HISTORY: Fall. COMPARISON STUDY: CT of the brain dated 08/10/2023. TECHNIQUE: Unenhanced axial CT scan of the brain is performed from the vertex to the skull base. A dose lowering technique was utilized adhering to the principles of ALARA. CT DOSE: 547.75 mGy.cm FINDINGS: Brain parenchyma: There is a subacute/evolving hemorrhage centered in the left frontoparietal cortex on image #16. This measures up to 1.5 cm. There is mild surrounding edema. No new foci of hemorrhage are identified. There is no midline shift or evidence of acute territorial ischemia by CT criteria. There is age- related involutional change noting moderate subcortical and periventricular microangiopathic disease. There are small chronic right posterior parietal and occipital infarcts. There are also chronic lacunar infarcts in both cerebral hemispheres. No extra-axial fluid collection is seen. Ventricles, sulci, cisterns: Prominent secondary to involutional change. Intracranial vasculature: There is atherosclerotic calcification of the cavernous carotid arteries. Calvarium: The skeletal structures are osteopenic. No depressed calvarial fracture is seen. Sinuses and mastoids: The visualized paranasal sinuses are clear. The mastoid air cells are well pneumatized. Orbits: The bony orbits are grossly intact. IMPRESSION: 1. There is a subacute/evolving infarct centered in the left frontoparietal cortex as above. This has decreased in size as compared to the 08/10/2023 examination. 2. No new foci of hemorrhage are identified. There is no midline shift or evidence of acute territorial ischemia by CT criteria. ACT 112: Negative or not required by law. Electronically signed by: Sunil Guardado M.D. 08/17/2023 10:01 PM Knee X-Ray 08/17/23 21:15 RIGHT KNEE 2 VIEWS CLINICAL HISTORY: Right knee injury. FINDINGS: AP and crosstable lateral views of the right knee are obtained. No prior studies are available for comparison at the time of dictation. The skeletal structures are heterogeneously osteopenic. No fracture is seen. There is minimal degenerative joint space narrowing. There are patellar enthesophytes. There is no significant joint effusion. Mild soft tissue swelling is seen around the knee. IMPRESSION: No acute bony abnormality is identified. Electronically signed by: Sunil Guardado M.D. 08/17/2023 10:29 PM Discharge Plan Visit Data Chief Complaint: Fall Stated Complaint: Fall, L Knee Pain ED Provider: Nadege Carrion Discharge Problem: Fall from standing, Acute bilateral knee pain, Head injury, Ambulatory dysfunction Patient Disposition: Home - Self-Care Discharge Instructions Krany/Other Patient Handouts: ED Fall Prevention Activity Restrictions/Additional Instructions: Your CT scan of your head showed that your intraparenchymal bleed from a few weeks ago is slowly resolving. No acute blood in your head was noted. Your x- rays of your knees were negative for any evidence of fracture. Your laboratory workup was also within normal limits, with a normal creatinine kinase and no evidence of muscle breakdown from your fall. Recommend staying well-hydrated over the next few days. Please return to the emergency department if you develop headache, changes in vision, lightheadedness or dizziness, confusion, chest pain or shortness of breath, or any new or worsening symptoms. Forms Stand Alone Forms: [facility], Important Visit Information Prescriptions Prescriptions: No Action Eliquis 5 mg tablet 5 mg PO AMHS anastrozole [Arimidex] 1 mg tablet 1 mg PO DAILY spironolactone 25 mg tablet 12.5 mg PO SUMOWETHSA@0900 Rx Instructions: take 1/2 tablet 5 days a week docusate sodium 100 mg capsule 100 mg PO BID pravastatin 80 mg tablet 80 mg PO DAILY multivitamin Tablet 1 tab PO DAILY calcium carbonate-vitamin D3 600 mg(1,500mg) -200 unit Tablet 1 tab PO DAILY metoprolol succinate 100 mg Tablet Extended Release 24 Hr 50 mg PO QAM alendronate [Fosamax] 70 mg Tablet 70 mg PO FR@0900 vitamin B complex Tablet 1 tab PO DAILY aspirin 81 mg Tablet,Delayed Release (Dr/Ec) 81 mg PO DAILY digoxin 125 mcg (0.125 mg) tablet 125 mcg PO MOWEFR@0900 melatonin 3 mg Tablet 3 mg PO HS PRN (Reason: Insomnia) sennosides [Senokot] 8.6 mg tablet 8.6 mg PO BID17 furosemide 40 mg tablet 40 mg PO QAM carbidopa-levodopa 25-100 mg tablet 0.5 tab PO TID Rx Instructions: morning,noon,bedtime Referrals Referrals: Anastasia Reza DO [Primary Care Provider] -
[2023-08-17 23:18] LABS: Basophils # (auto) 0.03 K/uL (0.00-0.20); Basophils % (auto) 0.6 %; Eosinophils # (auto) 0.13 K/uL (0.00-0.50); Eosinophils % (auto) 2.7 %; Hematocrit (blood only) 39.8 % (37.0-47.0); Immature Granulocytes # (auto) 0.02 K/uL (0.01-0.20); Immature Granulocytes % (auto) 0.4 %; Lymphocytes # (auto) 1.09 K/uL (1.20-3.40); Mean Corpuscular Hemoglobin 32.5 pg (25.0-34.0); Mean Corpuscular Hgb Conc 32.7 g/dL (32.0-36.0); Mean Corpuscular Volume 99.5 fL (80.0-100.0); Mean Platelet Volume 10.9 fL (9.4-12.4); Monocytes # (auto) 0.72 K/uL (0.11-0.59); Monocytes % (auto) 15.2 %; Neutrophils # (auto) 2.74 K/uL (1.40-6.50); Neutrophils % (auto) 58.1 %; Platelet Count 226 K/uL (130-400); RDW Coefficient of Variation 16.1 % (11.5-14.5); RDW Standard Deviation 59.6 fL (36.4-46.3); White Blood Count 4.73 K/ul (4.8-10.8)
[2023-08-17 23:33] LABS: Albumin Globulin Ratio 1.1 (0.9-2); Albumin Level 3.5 gm/dl (3.4-5.0); BUN Creatinine Ratio 27.3 (10-20); Bilirubin,Total 0.6 mg/dl (0.2-1.0); Calcium 9.3 mg/dl (8.6-10.3); Creatinine Clr Calc Pharmacy 38.7 ml/min; Est GFR (African American) 61.5 ml/min; Est GFR (Non-African American) 53.1 ml/min; Globulin 3.3 gm/dl (2.5-4.0); Magnesium 2.3 mg/dl (1.7-2.4); Potassium 5.2 mmol/L (3.5-5.1); Total Protein 6.8 gm/dl (6.0-8.3)
[2023-08-17 23:39] LABS: Troponin I High Sensitivity 11.9 pg/ml (0-14)
--- NOTE | 2023-08-18 01:50 | History & Physical Report ---
Date of Service August 18, 2023 Assessment & Plan (1) Hyperkalemia: Plan: Secondary to home medications Head trauma/knee pain secondary to recurrent fall, ambulatory dysfunction chronic diastolic HF, patient euvolemic to dry A. fib, rate controlled, currently off Eliquis secondary to recent ICH hx CVA/PVD, on aspirin Rx valvular heart disease (mild MR, moderate to severe TR) hypertension, stable hyperlipidemia/statin intolerance pulmonary hypertension nocturnal hypoxemia/mild MARGARET on nighttime O2 hx tremors on carbidopa right breast cancer status post chemoradiation on anastrozole Rx, in remission NHL status post radiation pancreatic neuroendocrine tumor status post surgery prediabetes, hemoglobin A1c of 6 from 2021 OBS Medical telemetry IVF, regular insulin 1 dose now for hyperkalemia Recheck serum potassium Hold spironolactone for now Repeat CT head 12 hours after first study, hold aspirin until repeat CT head results available Inpatient Cardiology consult as per patient request Re: Follow-up eval, patient had outpatient appointment scheduled today. DVT prophylaxis. SCDs Re: Recent intracranial hemorrhage Full code Text document was generated using [employer] voice recognition software. It may contain grammatical or spelling errors. Kindly contact undersigned for clarification of any documentation item in question. History of Present Illness Chief Complaint: Fall, could not get up Primary Care Provider: Anastasia Reza, History obtained from patient and records Medical history significant for chronic diastolic HF (EF 50%, TTE 2021), A. fib currently off Eliquis secondary to recent ICH, hx CVA, PVD, valvular heart disease (mild MR, moderate to severe TR), hypertension, hyperlipidemia/statin intolerance, pulmonary hypertension nocturnal hypoxemia/mild MARGARET on nighttime O2, history of tremors, right breast cancer status post chemoradiation on anastrozole Rx, NHL status post radiation, pancreatic neuroendocrine tumor status post surgery, prediabetes, ambulatory dysfunction. Last [facility] confinement November 2022 for rhabdomyolysis secondary to fall/ambulatory dysfunction. 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 No surgical intervention. Repeat brain MRI recommended after 1 month. Patient instructed to hold Eliquis until further discussion with neurology regarding risks. Home aspirin continued on discharge to [facility] living [facility]. Patient fell backwards after sliding on the floor while trying to get to bathroom at [facility]. She could not wait for help getting to the toilet. Posterior head trauma with transient headache symptoms, no LOC. No chest pain, no SOB. Achy right knee pain from falling. Patient unable to get up. Few hours elapsed before patient found as per report. Patient brought to the ER for evaluation. 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 Allergies Allergy/AdvReac Type Severity Reaction Status Date / Time ezetimibe AdvReac Intermediate Weakness Verified 05/18/23 14:12 chlorpheniramine AdvReac Mild "Antsy Verified 05/18/23 14:12 [From Chlor-Trimeton] Feeling" Home Medications Medication Instructions Recorded Confirmed Type calcium carbonate 600 mg-vitamin 1 tab PO DAILY 04/23/19 08/18/23 History D3 5 mcg (200 unit) tablet multivitamin 1 tab PO DAILY 04/23/19 08/18/23 History anastrozole 1 mg tablet (Arimidex) 1 mg PO DAILY 11/04/20 08/18/23 History alendronate 70 mg tablet (Fosamax) 70 mg PO FR@0900 04/05/22 08/18/23 History metoprolol succinate 100 mg 50 mg PO QAM 04/05/22 08/18/23 History tablet,extended release 24 hr spironolactone 25 mg tablet 12.5 mg PO SUMOWETHSA@0900 05/18/22 08/18/23 History aspirin 81 mg tablet,delayed 81 mg PO DAILY 09/12/22 08/18/23 History release digoxin 125 mcg (0.125 mg) tablet 125 mcg PO MOWEFR@0900 12/20/22 08/18/23 History melatonin 3 mg tablet 3 mg PO HS PRN Insomnia 12/20/22 08/18/23 History sennosides 8.6 mg tablet (Senokot) 8.6 mg PO BID17 12/20/22 08/18/23 History docusate sodium 100 mg capsule 100 mg PO BID 05/18/23 08/18/23 History pravastatin 80 mg tablet 80 mg PO DAILY 05/18/23 08/18/23 History carbidopa 25 mg-levodopa 100 mg 0.5 tab PO TID 08/18/23 08/18/23 History tablet furosemide 40 mg tablet 40 mg PO QAM 08/18/23 08/18/23 History Past Med/Surg History Medical History Combined systolic and diastolic heart failure Breast cancer, right 03/09/2020 Follicular lymphoma grade 3a Atrial fibrillation Neuroendocrine carcinoma of pancreas CVA (cerebral vascular accident) Cardiomyopathy Ventricular ectopy TIA (transient ischemic attack) 2009 - No Deficits Arthritis Follicular lymphoma Diagnosed 01/28/19 - Left Parotid Gland Surgical History S/P lumpectomy, right breast With SLN biopsy Dr. Matthew on 04/22/2020 Post-splenectomy History of superficial parotidectomy 01/28/19 - with facial nerve dissection and preservation History of tonsillectomy as a child History of colonoscopy 2017 History of hip replacement, total Left - 2007, Right - 2008 Family History Father , Passed age 88 of Kidney Cancer No problems noted. Mother , Passed age 83 of Alzheimers Disease No problems noted. Brother No problems noted. Sister ALL (acute lymphoblastic leukemia), Onset Age: 66 Now in remission Daughter No problems noted. Son No problems noted. 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 Feels Safe at Home: Yes Safety Concerns: Feels Safe At This Time Childhood Exposure to Second-Hand Smoke: Yes (Father Smoked in Home ) caffeine: Yes (4 cups of coffee/day ) Dental Care, Regularly: Yes Assistive Devices: Walker Review of Systems Review of Systems: As per HPI, all other systems reviewed and negative Physical Exam Physical Exam: GENERAL: Slightly uncomfortable, slightly hard of hearing, frail, no respiratory distress SKIN: Normal color, warm HEENT: Bespectacled, pink palpebral conjunctivae, no ptosis, lower lip tremors noted, dry buccal mucosa NECK : Supple, no tenderness CHEST : Decreased breath sounds, no tenderness HEART : Irregular, systolic murmur ABDOMEN: Some distention, nontender EXTREMITIES : Minimal LE swelling, minimal right knee tenderness, no other conspicuous deformities noted NEUROLOGIC : Coherent, no facial asymmetry, mild perioral tremors noted, gait and stance not assessed Results & Data Results & Data Vital Signs (Past 12 Hours) Vital Signs Temp Pulse Resp BP Pulse Ox O2 Del Method 08/18/23 00:21 74 20 137/97 97 08/17/23 23:21 79 08/17/23 22:31 78 20 118/81 96 08/17/23 21:36 67 18 122/85 97 08/17/23 21:00 75 20 93/72 L 96 08/17/23 20:00 72 20 91/64 L 96 08/17/23 19:18 36.8 C 82 20 114/83 97 08/17/23 19:16 83 08/17/23 19:16 82 18 114/83 98 Room Air Laboratory Results Laboratory Results WBC 4.73 K/ul (4.8-10.8) L 08/17/23 23:05 RBC 4.00 M/uL (4.20-5.40) L 08/17/23 23:05 Hgb 13.0 g/dl (12.0-16.0) 08/17/23 23:05 Hct 39.8 % (37.0-47.0) 08/17/23 23:05 MCV 99.5 fL (80.0-100.0) 08/17/23 23:05 MCH 32.5 pg (25.0-34.0) 08/17/23 23:05 MCHC 32.7 g/dL (32.0-36.0) 08/17/23 23:05 RDW Std Deviation 59.6 fL (36.4-46.3) H 08/17/23 23:05 RDW Coeff of Pablo 16.1 % (11.5-14.5) H 08/17/23 23:05 Plt Count 226 K/uL (130-400) 08/17/23 23:05 MPV 10.9 fL (9.4-12.4) 08/17/23 23:05 Immature Gran % (Auto) 0.4 % 08/17/23 23:05 Neut % (Auto) 58.1 % 08/17/23 23:05 Lymph % (Auto) 23.0 % 08/17/23 23:05 [place] % (Auto) 15.2 % 08/17/23 23:05 Eos % (Auto) 2.7 % 08/17/23 23:05 Baso % (Auto) 0.6 % 08/17/23 23:05 Neut # (Auto) 2.74 K/uL (1.40-6.50) 08/17/23 23:05 Lymph # (Auto) 1.09 K/uL (1.20-3.40) L 08/17/23 23:05 [place] # (Auto) 0.72 K/uL (0.11-0.59) H 08/17/23 23:05 Eos # (Auto) 0.13 K/uL (0.00-0.50) 08/17/23 23:05 Baso # (Auto) 0.03 K/uL (0.00-0.20) 08/17/23 23:05 Immature Gran # (Auto) 0.02 K/uL (0.01-0.20) 08/17/23 23:05 Sodium 137 mmol/L (136-145) 08/17/23 23:05 Potassium 5.2 mmol/L (3.5-5.1) H 08/17/23 23:05 Chloride 103 mmol/L (98-107) 08/17/23 23:05 Carbon Dioxide 28 mmol/L (21-32) 08/17/23 23:05 Anion Gap 6 (3-11) 08/17/23 23:05 BUN 27 mg/dl (6-23) H 08/17/23 23:05 Creatinine 0.99 mg/dl (0.6-1.2) 08/17/23 23:05 Est Cr Clr Drug Dosing 38.7 ml/min 08/17/23 23:05 Est GFR ( Amer) 61.5 ml/min 08/17/23 23:05 Est GFR (Non-Af Amer) 53.1 ml/min 08/17/23 23:05 BUN/Creatinine Ratio 27.3 (10-20) H 08/17/23 23:05 Glucose 99 mg/dl (70-99(Fasting)) 08/17/23 23:05 Calcium 9.3 mg/dl (8.6-10.3) 08/17/23 23:05 Magnesium 2.3 mg/dl (1.7-2.4) 08/17/23 23:05 Total Bilirubin 0.6 mg/dl (0.2-1.0) 08/17/23 23:05 AST 28 U/L (13-39) 08/17/23 23:05 ALT 20 U/L (7-52) 08/17/23 23:05 Alkaline Phosphatase 37 U/L (34-104) 08/17/23 23:05 Total Creatine Kinase 62 U/L (26-192) 08/17/23 23:05 Troponin I High Sens 11.9 pg/ml (0-14) 08/17/23 23:05 Total Protein 6.8 gm/dl (6.0-8.3) 08/17/23 23:05 Albumin 3.5 gm/dl (3.4-5.0) 08/17/23 23:05 Globulin 3.3 gm/dl (2.5-4.0) 08/17/23 23:05 Albumin/Globulin Ratio 1.1 (0.9-2) 08/17/23 23:[address] 08/17/23 20:42 CT SCAN OF THE BRAIN WITHOUT IV CONTRAST CLINICAL HISTORY: Fall. COMPARISON STUDY: CT of the brain dated 08/10/2023. TECHNIQUE: Unenhanced axial CT scan of the brain is performed from the vertex to the skull base. A dose lowering technique was utilized adhering to the principles of ALARA. CT DOSE: 547.75 mGy.cm FINDINGS: Brain parenchyma: There is a subacute/evolving hemorrhage centered in the left frontoparietal cortex on image #16. This measures up to 1.5 cm. There is mild surrounding edema. No new foci of hemorrhage are identified. There is no midline shift or evidence of acute territorial ischemia by CT criteria. There is age- related involutional change noting moderate subcortical and periventricular microangiopathic disease. There are small chronic right posterior parietal and occipital infarcts. There are also chronic lacunar infarcts in both cerebral hemispheres. No extra-axial fluid collection is seen. Ventricles, sulci, cisterns: Prominent secondary to involutional change. Intracranial vasculature: There is atherosclerotic calcification of the ca vernous carotid arteries. Calvarium: The skeletal structures are osteopenic. No depressed calvarial fracture is seen. Sinuses and mastoids: The visualized paranasal sinuses are clear. The mastoid air cells are well pneumatized. Orbits: The bony orbits are grossly intact. IMPRESSION: 1. There is a subacute/evolving infarct centered in the left frontoparietal cortex as above. This has decreased in size as compared to the 08/10/2023 examination. 2. No new foci of hemorrhage are identified. There is no midline shift or evidence of acute territorial ischemia by CT criteria. ACT 112: Negative or not required by law. Electronically signed by: Sunil Guardado M.D. 08/17/2023 10:01 PM Knee X-Ray 08/17/23 21:15 RIGHT KNEE 2 VIEWS CLINICAL HISTORY: Right knee injury. FINDINGS: AP and crosstable lateral views of the right knee are obtained. No prior studies are available for comparison at the time of dictation. The skeletal structures are heterogeneously osteopenic. No fracture is seen. There is minimal degenerative joint space narrowing. There are patellar enthesophytes. There is no significant joint effusion. Mild soft tissue swelling is seen around the knee. IMPRESSION: No acute bony abnormality is identified. Electronically signed by: Sunil Guardado M.D. 08/17/2023 10:29 PM Diagnostic Findings Chest x-ray as per my interpretation cardiomegaly EKG as per my interpretation : Rate 75, A-fib, LAD, LAFB, T wave abnormalities inferior leads, PVCs
[2023-08-18] MEDS ORDERED: PROMETHAZINE HCL 6.25 MG in SODIUM CHLORIDE 0.9% 50 ML IV PRN (01:53)
[2023-08-18] MEDS ORDERED: oxyCODONE HCL IR 5 MG TAB (IMMEDIATE RELEASE) PO PRN (01:53)
[2023-08-18] MEDS: NovoLIN-R INSULIN PER UNIT CHARGE IV STA (03:27)
[2023-08-18] MEDS: DEXTROSE 50% 50 ML SYRINGE IV ONE (03:27)
[2023-08-18 04:35] LABS: BUN Creatinine Ratio 24.5 (10-20); Calcium 8.8 mg/dl (8.6-10.3); Creatinine Clr Calc Pharmacy 40.7 ml/min; Est GFR (African American) 65.5 ml/min; Est GFR (Non-African American) 56.5 ml/min; Potassium 4.2 mmol/L (3.5-5.1)
[2023-08-18 05:10] LABS: Basophils # (auto) 0.03 K/uL (0.00-0.20); Basophils % (auto) 0.6 %; Eosinophils # (auto) 0.16 K/uL (0.00-0.50); Eosinophils % (auto) 3.3 %; Hematocrit (blood only) 36.1 % (37.0-47.0); Hemoglobin 11.8 g/dl (12.0-16.0); Immature Granulocytes # (auto) 0.03 K/uL (0.01-0.20); Immature Granulocytes % (auto) 0.6 %; Lymphocytes # (auto) 1.23 K/uL (1.20-3.40); Lymphocytes % (auto) 25.3 %; Mean Corpuscular Hemoglobin 32.8 pg (25.0-34.0); Mean Corpuscular Hgb Conc 32.7 g/dL (32.0-36.0); Mean Corpuscular Volume 100.3 fL (80.0-100.0); Mean Platelet Volume 11.1 fL (9.4-12.4); Monocytes # (auto) 0.58 K/uL (0.11-0.59); Monocytes % (auto) 11.9 %; Neutrophils # (auto) 2.84 K/uL (1.40-6.50); Neutrophils % (auto) 58.3 %; Platelet Count 205 K/uL (130-400); RDW Coefficient of Variation 16.1 % (11.5-14.5); RDW Standard Deviation 59.7 fL (36.4-46.3); White Blood Count 4.87 K/ul (4.8-10.8)
[2023-08-18] MEDS: SODIUM CHLORIDE 0.9% 500 ML IV ONE (05:38)
--- NOTE | 2023-08-18 06:39 | XRay Report ---
XR chest 1V portable CLINICAL HISTORY: hyperkalemia, fall COMPARISON STUDY: Chest CT July 22, 2022. Chest radiograph June 02, 2023. FINDINGS: Lung volumes are normal. Lungs are clear. There is no pneumothorax or pleural effusion. Car diomegaly is unchanged. Mediastinal contours are normal. There is no evidence for pulmonary edema. IMPRESSION: No acute cardiopulmonary findings. Stable cardiomegaly. ACT 112: Negative or not required by law. Electronically signed by: Anderson Branch M.D. 08/18/2023 6:37 AM
[2023-08-18] MEDS: CARBIDOPA/LEVODOPA 25/100MG TAB PO SCH (07:17)
--- NOTE | 2023-08-18 08:41 | Cardiology Consultation ---
Date of Consultation August 18, 2023 Assessment & Plan (1) Intraparenchymal hemorrhage of brain: (2) Ambulatory dysfunction: (3) Chronic a-fib: Plan Patient admitted after recurrent fall at nursing facility was admitted and transferred to [facility] 1 week ago for IPH. Eliquis on hold. Per neurology, ASA and statin resumed and recommended. Head CT x2 since admission demonstrate continued improvement in IPH. No increase in bleed. Chronic afib noted. Rates controlled. Continue metoprolol and low dose digoxin. No anticoagulation for now. She was mildly hyperkalemic on arrival Clinically also appeared volume depleted. Lisinopril placed on hold. Possibly resume lower dose as needed for BP. Furosemide on hold. Per neurology, patient will need f/u MRI in 1 month. At that time future anticoagulation can be discussed. However given her age, recurrent falls, fraility - resuming anticoagulation would be high risk. However she had [id number] score of 7. Case discussed with Dr. Schafer. Further recommendations pending assessment and evaluation. I spent a total of 60 minutes on the date of service in preparation, delivery, and documentation of the care provided to this patient, excluding any time spent in the performance of separately billed services. Samantha Garcia PA-C Department of Cardiology, [facility] This chart was completed in part utilizing Speech Voice Recognition Software. Grammatical errors, random word insertions, pronoun errors, and incomplete sentences are an occasional consequence of this system due to software limitations, ambient noise, and hardware issues. Any formal questions or concerns about the content, text, or information contained within the body of this dictation should be directly addressed to the provider for clarification. Supervising Physician Co-Signing Physician Notes Patient was seen and personally examined. Inpatient, prior hospitalization and outpatient records reviewed. Full assessment and plan as outlined above. Care and management discussed with advanced provider and endorsed personally 83-year-old female with complex issues which include longstanding persistent atrial fibrillation, low normal LV systolic function with diastolic heart failure previously on chronic anticoagulation, [id number] 2 score 7. Recently presented with neurologic changes and found to have an intraparenchymal hemorrhage. Evaluated by neurosurgery at [facility], chronic anticoagulation discontinued. Now suffered mechanical fall with resultant mild head contusion. No acute cardiac concerns but blood pressure elevated on presentation. No progression in bleeding on MRI Previous imaging studies raise concern of possible cerebral amyloidopathy Plan as outlined above. Treat mechanical fall. Continue rehab with fall precautions Resume lisinopril Discussed indications for anticoagulation. Possible future plans if MRI deems anticoagulation allowable to be resumed Eliquis without antiplatelet drug I spent a total of 20 minutes additional on the date of service in preparation, delivery, and documentation of the care provided to this patient. History of Present Illness Reason for Consultation: Weakness; Falls; Recent [facility] Requesting Physician: Dr. Lai Attending Physician: Dr. Schafer History of Present Illness Patient is a complex 83 year old female known to [facility] cardiology - Dharmesh Gasca/Dr. Schafer History is complex and includes: 1. Persistent atrial fibrillation. First observed on 06/20/2019. 2. [id number] Score 7 points 3. History of asymptomatic atrial tachycardia 4. Frequent ventricular ectopy including multiple runs of ventricular tachycardia 5. Mild to moderately reduced left ventricular systolic function, EF 40-45%. 6. Systolic and diastolic congestive heart failure 7. Pulmonary hypertension 8. Nocturnal hypoxemia, mild obstructive sleep apnea, prescribed supplemental oxygen QHS 9. Hypertension 10. Dyslipidemia. Intolerant to statin and ezetimibe 11. Enlarged ascending aorta 12. Chronic kidney disease 13. Parotid gland tumor status post removal, grade 2 follicular lymphoma 14. Pancreatic tumor, status post June 27, 2019 robotic distal pancreatectomy and splenectomy at [facility], well differentiated neuroendocrine tumor 15. TIA/CVA Recent history includes evaluation at [facility] for lower extremity weakness and tingling and found to have probable acute intraparenchymal hemorrhage. She was transferred to [facility] for further evaluation with neurosurgery on 08/10/23. [facility] records reviewed. Evaluated by neurology/neurosurgery. Age of the infarct was unclear given its appearance. Etiology of bleed was likely either cerebral amyloid angiopathy given her age, history of TIAs, and lobar bleeds vs cavernoma hemorrhage. Patient has also had radiation to the left parotid gland in 2019 and studies have shown radiation can cause cavernous hemorrhages years after radiation. Eliquis was held and discontinued. Asa 81 mg and statin was continued secondary stroke prevention. She was started on Keppra by neurosurgery and discontinued upon discharge. Brain MRI in one month to further characterize her brain bleed and discussion on restarting anticoagulation at that time. She was discharged stable on 08/14/23. Patient re-admitted to [facility] after sustaining a fall at her nursing facility and striking her head. She was apparently on the floor for several hours as she could not reach her call courtney. She did not lose consciousness. Admitted to [facility] for evaluation and treatment. Head CT on arrival and repeat this morning demonstrating continued IPH but improving in size compared to 1 week ago. Patient reports she has ongoing weakness and feels her "legs don't work". She voices no acute cardiac concerns. Allergies Allergy/AdvReac Type Severity Reaction Status Date / Time ezetimibe AdvReac Intermediate Weakness Verified 05/18/23 14:12 chlorpheniramine AdvReac Mild "Antsy Verified 05/18/23 14:12 [From Chlor-Trimeton] Feeling" Home Medications Medication Instructions Recorded Confirmed Type calcium carbonate 600 mg-vitamin 1 tab PO DAILY 04/23/19 08/18/23 History D3 5 mcg (200 unit) tablet multivitamin 1 tab PO DAILY 04/23/19 08/18/23 History anastrozole 1 mg tablet (Arimidex) 1 mg PO DAILY 11/04/20 08/18/23 History alendronate 70 mg tablet (Fosamax) 70 mg PO FR@0900 04/05/22 08/18/23 History metoprolol succinate 100 mg 50 mg PO QAM 04/05/22 08/18/23 History tablet,extended release 24 hr spironolactone 25 mg tablet 12.5 mg PO SUMOWETHSA@0900 05/18/22 08/18/23 History aspirin 81 mg tablet,delayed 81 mg PO DAILY 09/12/22 08/18/23 History release digoxin 125 mcg (0.125 mg) tablet 125 mcg PO MOWEFR@0900 12/20/22 08/18/23 History melatonin 3 mg tablet 3 mg PO HS PRN Insomnia 12/20/22 08/18/23 History sennosides 8.6 mg tablet (Senokot) 8.6 mg PO BID17 12/20/22 08/18/23 History docusate sodium 100 mg capsule 100 mg PO BID 05/18/23 08/18/23 History pravastatin 80 mg tablet 80 mg PO DAILY 05/18/23 08/18/23 History carbidopa 25 mg-levodopa 100 mg 0.5 tab PO TID 08/18/23 08/18/23 History tablet furosemide 40 mg tablet 40 mg PO QAM 08/18/23 08/18/23 History Patient History Medical History Combined systolic and diastolic heart failure Breast cancer, right 03/09/2020 Follicular lymphoma grade 3a Atrial fibrillation Neuroendocrine carcinoma of pancreas CVA (cerebral vascular accident) Cardiomyopathy Ventricular ectopy TIA (transient ischemic attack) 2009 - No Deficits Arthritis Follicular lymphoma Diagnosed 01/28/19 - Left Parotid Gland Surgical History S/P lumpectomy, right breast With SLN biopsy Dr. Matthew on 04/22/2020 Post-splenectomy History of superficial parotidectomy 01/28/19 - with facial nerve dissection and preservation History of tonsillectomy as a child History of colonoscopy 2018 History of hip replacement, total Left - 2007, Right - 2008 Family History Father , Passed age 88 of Kidney Cancer No problems noted. Mother , Passed age 83 of Alzheimers Disease No problems noted. Brother No problems noted. Sister ALL (acute lymphoblastic leukemia), Onset Age: 66 Now in remission Daughter No problems noted. Son No problems noted. 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 Feels Safe at Home: Yes Safety Concerns: Feels Safe At This Time Childhood Exposure to Second-Hand Smoke: Yes (Father Smoked in Home ) caffeine: Yes (4 cups of coffee/day ) Dental Care, Regularly: Yes Assistive Devices: Walker Review of Systems Review of Systems: All systems reviewed & are unremarkable except as noted in HPI & below Physical Exam Constitutional: WD/WN, vitals as above + thin Neck: trachea midline, no thyromegaly Respiratory: normal respiratory effort Auscultation: + diminished lung sounds; no crackles and no rales Results & Data Vital Signs (Past 12 Hours) Vital Signs Pulse Pulse Resp BP BP Pulse Ox Pulse Ox 08/18/23 08:11 80 08/18/23 05:04 74 19 131/106 H 95 08/18/23 04:38 56 L 17 104/72 96 08/18/23 04:30 67 17 96 08/18/23 04:18 69 20 98 08/18/23 04:18 104/72 08/18/23 04:15 67 17 104/72 100 08/18/23 04:15 96 08/18/23 04:01 69 21 94 08/18/23 04:01 108/72 08/18/23 04:00 68 19 98 08/18/23 03:30 58 L 20 96 08/18/23 03:05 67 17 130/102 H 97 08/18/23 03:04 130/102 H 08/18/23 03:04 66 19 08/18/23 03:00 65 19 97 08/18/23 02:30 75 20 98 08/18/23 02:02 74 19 92 08/18/23 02:02 130/91 08/18/23 02:00 76 22 97 08/18/23 01:50 70 22 91 08/18/23 01:40 73 19 87 L 08/18/23 01:31 71 17 08/18/23 01:31 119/90 08/18/23 01:30 68 18 08/18/23 01:20 65 18 95 08/18/23 01:10 78 20 94 08/18/23 00:21 74 20 137/97 97 08/17/23 23:21 79 08/17/23 22:31 78 20 118/81 96 08/17/23 21:36 67 18 122/85 97 08/17/23 21:00 75 20 93/72 L 96 O2 Del Method O2 Del Method 08/18/23 08:11 08/18/23 05:04 Room Air 08/18/23 04:38 Room Air 08/18/23 04:30 Room Air 08/18/23 04:18 Room Air 08/18/23 04:18 08/18/23 04:15 Room Air 08/18/23 04:15 Room Air 08/18/23 04:01 Room Air 08/18/23 04:01 08/18/23 04:00 Room Air 08/18/23 03:30 Room Air 08/18/23 03:05 Room Air 08/18/23 03:04 08/18/23 03:04 08/18/23 03:00 Room Air 08/18/23 02:30 Room Air 08/18/23 02:02 Room Air 08/18/23 02:02 08/18/23 02:00 Room Air 08/18/23 01:50 08/18/23 01:40 08/18/23 01:31 08/18/23 01:31 08/18/23 01:30 08/18/23 01:20 08/18/23 01:10 08/18/23 00:21 08/17/23 23:21 08/17/23 22:31 08/17/23 21:36 08/17/23 21:00 Laboratory Results Cardiac Enzymes 08/17/23 Range/Units 23:05 AST 28 (13-39) U/L Troponin I High Sens 11.9 (0-14) pg/ml CBC 08/17/23 08/18/23 Range/Units 23:05 03:59 WBC 4.73 L 4.87 (4.8-10.8) K/ul RBC 4.00 L 3.60 L (4.20-5.40) M/uL Hgb 13.0 11.8 L (12.0-16.0) g/dl Hct 39.8 36.1 L (37.0-47.0) % Plt Count 226 205 (130-400) K/uL Neut # (Auto) 2.74 2.84 (1.40-6.50) K/uL Lymph # (Auto) 1.09 L 1.23 (1.20-3.40) K/uL Yancey # (Auto) 0.72 H 0.58 (0.11-0.59) K/uL Eos # (Auto) 0.13 0.16 (0.00-0.50) K/uL Baso # (Auto) 0.03 0.03 (0.00-0.20) K/uL Comprehensive Metabolic Panel 08/17/23 08/18/23 Range/Units 23:05 03:59 Sodium 137 136 (136-145) mmol/L Potassium 5.2 H 4.2 (3.5-5.1) mmol/L Chloride 103 103 (98-107) mmol/L Carbon Dioxide 28 29 (21-32) mmol/L BUN 27 H 23 (6-23) mg/dl Creatinine 0.99 0.94 (0.6-1.2) mg/dl Glucose 99 203 H (70-99(Fasting)) mg/dl Calcium 9.3 8.8 (8.6-10.3) mg/dl AST 28 (13-39) U/L ALT 20 (7-52) U/L Alkaline Phosphatase 37 (34-104) U/L Total Protein 6.8 (6.0-8.3) gm/dl Albumin 3.5 (3.4-5.0) gm/dl Intake and Output 08/17/23 08/18/23 08/18/23 22:59 06:59 14:59 Intake Total 0 / 0 Balance 0 / 0 Intake: Oral 0 / 0 Other: Weight 64.7 kg 64.7 kg Weight Measurement Method Built in [facility] Built in [facility] Diagnostic Findings telemetry reviewed: Atrial fibrillation with controlled rates. EKG reviewed from admission 08/16: Atrial fibrillation with controlled rates at 74 bmp no acute ischemic changes Chest xray on admission: No acute process Repeat head CT on 08/17: IMPRESSION: Continued decrease in size of the subacute intraparenchymal hemorrhage within the left frontal lobe. Head CT on admission, 08/16: IMPRESSION: 1. There is a subacute/evolving infarct centered in the left frontoparietal cortex as above. This has decreased in size as compared to the 08/10/2023 examination. 2. No new foci of hemorrhage are identified. There is no midline shift or evidence of acute territorial ischemia by CT criteria. Prior data reviewed: Brain MRI on 08/10/23: IMPRESSION: 1. 21 x 25 x 25 mm left posterior frontal/parietal lobe intraparenchymal hemorrh age, with associated mass-effect. 2. Focal lesion with associated susceptibility and minimal enhancement anterior to hemorrhage, nonspecific in etiology. 3. 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 4. 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 5. Patchy/confluent nonspecific cerebral white matter T2/FLAIR hyperintense and nonenhancing foci, compatible with moderate microvascular ischemic changes, greater in extent/number for stated age. Medications Administered Current Inpatient Medications Acetaminophen (Acetaminophen 325 Mg Tab) 650 mg PO QID PRN PRN Reason: pain/fever Stop: 09/17/23 01:52 Anastrozole (Anastrozole 1 Mg Tab) 1 mg PO DAILY REKHA Stop: 09/17/23 08:59 Carbidopa/Levodopa (Carbidopa/Levodopa 25/100mg Tab) 0.5 tab PO TID@0730,1200,2100 REKHA Stop: 09/17/23 07:29 Last Admin: 08/18/23 07:17 Dose: 0.5 tab Docusate Sodium (Docusate Sodium 100 Mg Cap) 100 mg PO BID REKHA Stop: 09/17/23 08:59 Promethazine HCl 6.25 mg/ (Sodium Chloride) 50.25 mls @ 201 mls/hr IV Q6H PRN PRN Reason: Nausea And Vomiting Stop: 09/17/23 01:52 Sodium Chloride (Nss) 500 mls @ 60 mls/hr IV .Q8H20M ONE Stop: 08/18/23 13:39 Last Admin: 08/18/23 05:38 Dose: 60 mls/hr Melatonin (Melatonin 3 Mg Tab) 3 mg PO HS PRN PRN Reason: Insomnia Stop: 09/17/23 02:14 Metoprolol Succinate (Metoprolol Succ 50mg Ext Rel Tab) 50 mg PO QAM REKHA Stop: 09/17/23 08:59 Multivitamins (Multivitamin Tab) 1 tab PO DAILY REKHA Stop: 09/17/23 08:59 Oxycodone HCl (Oxycodone Hcl Ir 5 Mg Tab (Immediate Release)) 5 mg PO Q4H PRN PRN Reason: Pain Stop: 09/01/23 01:52 Sennosides (Senna 8.6 Mg Tab) 8.6 mg PO BID17 REKHA Stop: 09/17/23 08:59 Vitamin B Complex (Vitamin B Complex Tab) 1 tab PO DAILY REKHA Stop: 09/17/23 08:59
[2023-08-18] MEDS: VITAMIN B COMPLEX TAB PO SCH (09:31)
[2023-08-18] MEDS: MULTIVITAMIN TAB PO SCH (09:31)
[2023-08-18] MEDS: DOCUSATE SODIUM 100 MG CAP PO SCH (09:31)
[2023-08-18] MEDS: SENNA 8.6 MG TAB PO SCH (09:31)
[2023-08-18] MEDS: METOPROLOL SUCC 50MG EXT REL TAB PO SCH (09:31)
[2023-08-18] MEDS: ANASTROZOLE 1 MG TAB PO SCH (09:32)
--- NOTE | 2023-08-18 10:52 | CT Scan Report ---
CT OF THE HEAD WITHOUT CONTRAST CLINICAL HISTORY: ffup, head trauma COMPARISON STUDY: Head CT's August 10, 2023 and August 17, 2023. CT DOSE: 547.75 mGy.cm TECHNIQUE: Helical axial images of the head were obtained without IV contrast. Automated exposure con trol was utilized for the study. A dose lowering technique was utilized adhering to the principles o f ALARA. FINDINGS: There has been continued decrease in size of the subacute intraparenchymal hemorrhage withi n the left frontal lobe. The largest component now measures 1.3 cm, previously 1.5 cm. There is assoc iated vasogenic edema. No new sites of hemorrhage are present. Ventricular system is unremarkable. Th e basal cisterns are patent. Old infarct within the right parietal lobe and right cerebellar hemisphe re are unchanged. There are no calvarial fractures. IMPRESSION: Continued decrease in size of the subacute intraparenchymal hemorrhage within the left f rontal lobe. ACT 112: Negative or not required by law. Electronically signed by: Anderson Branch M.D. 08/18/2023 10:50 AM
[2023-08-18] MEDS: DIGOXIN 0.125 MG TAB PO SCH (14:55)
--- NOTE | 2023-08-18 16:10 | Hospitalist Progress Note ---
Date of Service August 18, 2023 Assessment & Plan (1) Fall from standing: (2) Ambulatory dysfunction: (3) Hyperkalemia: (4) Chronic diastolic heart failure: (5) Chronic a-fib: Plan 83-year-old female with complex issues which include chronic atrial fibrillation, low normal LV systolic function with diastolic heart failure previously on chronic anticoagulation, [id number] 2 score 7. Recently presented with neurologic changes and found to have an intraparenchymal hemorrh age. Evaluated by neurosurgery at [facility], chronic anticoagulation discontinued. Now suffered mechanical fall with resultant mild head contusion. Mechanical fall/Ambulatory dysfunction- Imagings reviewed. CT head shows continued decrease in size of the subacute intraparenchymal hemorrhage within the left frontal lobe. Denies any issues currently. PT OT Eval Chronic atrial fibrillation- rate controlled on BB, digoxin. Anticoag on hold due to recent intracranial hemorrhage per neuro. To be considered after OP follow up and repeat MRI Hyperkalemia- resolved HTN- BP in 90s during my encounter. Monitor Chronic diastolic CHF with mod-sev TR- Currently euvolemic MARGARET on nighttime oxygen H/o tremors on carbidopa DVT ppx- Chemoppx on hold due to recent intracranial bleed, SCDs Dispo- Pending PT Eval Time spent- 35 mins Admission and Anticipated Discharge Date Admission Date: August 18, 2023 Subjective patient was seen and examined at bedside. She feels fine. Denies any pain, headache, chest pain, N/V, SOB. Awaiting PT. Review of Systems Review of Systems: All systems reviewed & are unremarkable except as noted in Subjective Physical Exam Physical Exam: General: Elderly female, Lying comfortably in bed, not in distress, on room air HEENT: EOMI, CARLA, MMM Chest: Fair breath sounds bilaterally CVS: Irregular Abdomen: Soft, non tender, not distended, normal bowel sounds Neuro: Awake, alert, oriented, conversing well, non focal Extremities: No edema Results & Data Results & Data Vital Signs (Past 12 Hours) Vital Signs Pulse Pulse Resp BP BP Pulse Ox Pulse Ox 08/18/23 14:17 86 15 154/100 H 94 08/18/23 08:11 80 08/18/23 08:00 135/96 08/18/23 08:00 92 H 18 93 08/18/23 07:00 132/77 08/18/23 07:00 83 18 96 08/18/23 06:00 101 H 14 95 08/18/23 06:00 133/74 08/18/23 05:04 74 19 131/106 H 95 08/18/23 04:38 56 L 17 104/72 96 08/18/23 04:30 67 17 96 08/18/23 04:18 69 20 98 08/18/23 04:18 104/72 08/18/23 04:15 67 17 104/72 100 08/18/23 04:15 96 08/18/23 04:01 69 21 94 08/18/23 04:01 108/72 08/18/23 04:00 68 19 98 O2 Del Method O2 Del Method 08/18/23 14:17 Room Air 08/18/23 08:11 08/18/23 08:00 08/18/23 08:00 08/18/23 07:00 08/18/23 07:00 08/18/23 06:00 08/18/23 06:00 08/18/23 05:04 Room Air 08/18/23 04:38 Room Air 08/18/23 04:30 Room Air 08/18/23 04:18 Room Air 08/18/23 04:18 08/18/23 04:15 Room Air 08/18/23 04:15 Room Air 08/18/23 04:01 Room Air 08/18/23 04:01 08/18/23 04:00 Room Air
--- OUTSIDE RECORDS SUMMARY | 2023-08-18 21:29 | External Medical Summary ---
Author Name Unknown Address Unknown Organization K01:[facility] - [address] [place] [id number] Laboratory Report Ordering Provider Test Date Status CELESTINORADHAAMPARO 08/13/2023 08:07:00 Final Observation Date Value Abnormality Reference (Units ) Status BUN 08/13/2023 08:07:00 20 6-20 (mg/dL) Final Creatinine 08/13/2023 08:07:00 0.8 0.5-1.0 (mg/dL) Final Glomerular filtration rate/1.73 sq M.predicted [Volume Rate/Area] in Serum, Plasma or Blood by Creatinine-based formula (CKD-EPI) 08/13/2023 08:07:00 77 >=60 (mL/min) Final eGFR is calculated based on the CKD-EPI 2020 equation Sodium 08/13/2023 08:07:00 139 135-146 (m mol/L) Final Potassium 08/13/2023 08:07:00 4.7 3.5-5.1 (m mol/L) Final Cl 08/13/2023 08:07:00 106 98-107 (mm ol/L) Final CO2 08/13/2023 08:07:00 22 22-32 (mmo l/L) Final Anion gap 08/13/2023 08:07:00 11 7-15 (mmol /L) Final Glucose 08/13/2023 08:07:00 93 70-120 (mg /dL) Final Calcium 08/13/2023 08:07:00 8.5 8.4-10.2 ( mg/dL) Final Performing Location [facility] - [address] [place] [id number]
--- OUTSIDE RECORDS SUMMARY | 2023-08-18 21:29 | External Medical Summary | Summary of Care ---
Author Name Unknown Organization [facility] Address [address] [place] [address] Phone [phone] Care Team Providers Care Turbine Subassembler Name Role Phone Anastasia Reza DO Primary Care Provider [phone] Reason for Visit * Auth/Cert Specialty Diagnoses / Procedures Referred By Pavel t Referred To Contact Diagnoses Hemorrhage of brain, nontraumatic (HCC) Right Frontal Hemorrhage Daron Young MD [address] [place] [address] Nsicu 4 Ip [facility] [place] [address] [place] [address] Referral ID Status Reason Start Date Expiration Date Visits Re quested Visits Authorized [id number] Encounter Details Date Type Department Care Team (Latest Contact Info) Description 08/10/2023 9:48 AM EDT - 08/14/2023 6:13 PM EDT Hospital Encounter [id number] [facility], [address] [address] [place] [address] Daron Young MD [address] [place] [address] Fior Hudson DO [address] [place] [address] Moi Elena MD [address] [place] [address] Colton Vitale DO [address], [place] [id number] Various: EKG,KRAVS Discharge Disposition: Other Allergies Active Allergy Reactions Criticality Noted Date Comments Chlorpheniramine 07/22/2016 Anxious Chlor Trimeton Ezetimibe High 04/05/2022 Other reaction(s): Weakness documented as of this encounter (statuses as of 08/15/2023) Medications Medication Sig Dispensed Refills Start Date End Date Status Calcium Carb-Cholecalcifer ol 600-200 MG-UNIT Oral Tablet Take 1 Tablet by mouth in the morning. (0800). 0 Active Multiple Vitamin (MULTI-VITAMIN DAILY) Tablet Take 1 Tablet by mouth in the morning. (0800). 0 Active Anastrozole 1 MG Oral Tablet (Arimidex) Take 1 Tablet by mouth in the morning. (0800). 0 1 Active Magnesium Hydroxide 400 MG/5ML Oral Suspension Take 30 mL by mouth daily as needed for Constipation. 0 Active Alendronate Sodium 70 MG Oral Tablet (Fosamax) Take 1 Tablet by mouth once a day on Monday only. (0700) 0 2 Active Aspirin EC 81 MG Oral Tablet Delayed Release Take 1 Tablet by mouth in the morning. 31 Tablet 5 2 Active Melatonin 3 MG Oral Tablet Take 1 Tablet by mouth at bedtime as needed for Sleep. 0 Active Digoxin 125 MCG Oral Tablet (Lanoxin)Indicatio ns:Persistent atrial fibrillation (HCC),HTN, goal below 130/80,Heart failure, diastolic, with acute decompensation (HCC),HFrEF (heart failure with reduced ejection fraction) (HCC) Take one three days per wek 40 Tablet 3 3 Active Additional Information Patient taking differently: 125 mcg Oral MWF, (No instructions reported), Informant: Transferring Facility Documents, Reported on 08/10/2023 Metoprolol Succinate ER 50 MG Oral Tablet Extended Release 24 Hour (toPROL XL)Indications:Per sistent atrial fibrillation (HCC),HTN, goal below 130/80,Heart failure, diastolic, with acute decompensation (HCC),HFrEF (heart failure with reduced ejection fraction) (HCC) Take 1 Tablet by mouth in the morning. 90 Tablet 3 3 Active Carbidopa-Levodopa 25-100 MG Oral Tablet (Sinemet) Take 0.5 Tablets by mouth in the morning and 0.5 Tablets at noon and 0.5 Tablets before bedtime. 135 Tablet 3 3 Active oxygen IN GAS Use 2 L/min(Oxygen) as directed at bedtime. 0 Active Docusate Sodium 100 MG Oral Capsule (Colace) Take 1 Capsule by mouth 2 times a day. () 0 Active Sennosides 8.6 MG Oral Tablet (Senokot) Take 1 Tablet by mouth 2 times a day. () 0 3 Active D3 2000 50 MCG (1999 UT) Oral Capsule (Cholecalciferol) Take 1 Capsule by mouth in the morning. (799). 0 Active Pravastatin Sodium 80 MG Oral TabletIndications: Dyslipidemia, goal LDL below 70 Take 1 Tablet by mouth in the morning. 90 Tablet 3 3 Active Furosemide 40 MG Oral Tablet (Lasix)Indications :Persistent atrial fibrillation (HCC),HTN, goal below 130/80,Heart failure, diastolic, with acute decompensation (HCC),HFrEF (heart failure with reduced ejection fraction) (HCC) Take 1.5 Tablets by mouth once a day on Monday, Monday, and Monday only. And 40 mg all other days (0800) 0 4 Active Spironolactone 25 MG Oral Tablet (Aldactone)Indicat ions:Persistent atrial fibrillation (HCC),HTN, goal below 130/80,Heart failure, diastolic, with acute decompensation (HCC),HFrEF (heart failure with reduced ejection fraction) (HCC) Take 0.5 Tablets by mouth in the morning. (0800). 0 4 Active Apixaban 5 MG Oral Tablet (Eliquis)Indicatio ns:Persistent atrial fibrillation (HCC) Take 1 Tablet by mouth 2 times a day. () 0 4 08/14/19 24 Discontinued documented as of this encounter (statuses as of 08/15/2023) Active Problems Problem Noted Date Diagnosed Date Intracranial hemorrhage 08/11/2023 Cerebral cavernoma 08/11/2023 Impaired mobility and ADLs 08/11/2023 Right-sided sensory deficit present 08/10/2023 Chronic anticoagulation 08/10/2023 Protein-calorie malnutrition 04/11/2023 Hospital discharge follow-up 01/13/2023 Fall 01/13/2023 Chronic combined systolic and diastolic heart fa ilure 01/13/2023 Ambulatory dysfunction 01/13/2023 Need for influenza vaccination 01/13/2023 Medical home patient encounter 09/22/2022 PHT (pulmonary hypertension) 07/13/2021 Breast cancer 01/13/2021 Primary pancreatic neuroendocrine tumor 01/14/20 21 Chronic kidney disease, stage 3b 09/08/2020 Overview: Per CKD protocol Systolic dysfunction 08/28/2019 Dyslipidemia, goal LDL below 70 08/28/2019 SOB (shortness of breath) 08/28/2019 Frequent PVCs 08/28/2019 HTN, goal below 130/80 08/16/2019 S/P splenectomy 08/16/2019 Cerebrovascular disease, arteriosclerotic, post- stroke 05/28/2019 Atrial fibrillation 05/02/2019 Dyslipidemia 05/02/2019 Paroxysmal atrial fibrillation 05/02/2019 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, following with [facility] cancer center History of CVA (cerebrovascular accident) 2016 documented as of this encounter (statuses as of 08/15/2023) Resolved Problems Problem Noted Date Diagnosed Date Resolved Date Abnormal CT of the head 08/10/202307/30 Prediabetes 04/11/2022 05/12/2022 Overview: Per Prediabetes protocol Persistent atrial fibrillation 07/13/2021 04/27/2022 Stage 3a chronic kidney disease 03/09/2020 09/10/2020 Overview: Per CKD protocol 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 08/16/2019 CKD (chronic kidney disease) stage 3, GFR 30-59 ml/min 06/20/2019 03/12/2020 Overview: Per CKD protocol Pancreatic mass 05/02/2019 08/16/2019 documented as of this encounter (statuses as of 08/15/2023) Immunizations Name Administration Dates Next Due COVID-19 mRNA, LNP-s, No Pre serve, 2-Dose Series (Moderna) 07/04/2020,05/30/2020 COVID-19, mRNA, LNP-s, PF, B ooster, 100mcg/0.5mg (Moderna) 09/16/2021,03/22/2021 Covid-19, Mrna, Lnp-s, Pf, B ivalent, 30 Mcg, IM, 12 yrs and above (BackOps) 01/24/2022 HIB PRP-OMP, 3 dose (Pedvax) 05/15/2019 Meningococcal B, OMV AJD, 2- Dose Series (BEXSERO) 07/17/2019,05/15/2019 Meningococcal MCV4P Conjugat e Vaccine (Menactra) 07/17/2019,05/15/2019 Pneumococcal Conjugate Vacc, 13 Valent (Prevnar) 05/15/2019,07/22/2016 Pneumococcal Polysaccharide PPV23 (Pneumovax) 07/17/2019,05/02/2019 Seasonal Influenza, Quadriva lent Hd (Fluzone Hd) 01/13/2023,02/15/2022,02/15/2021 Seasonal Influenza, Quadriva lent, No Preserve, IM 02/22/2020 Seasonal Influenza, Trivalen t, Adjuvanted, 65+ yrs 05/02/2019 TDAP (age 10 and older)(Boostrix) 10/28/2022,06/2010 Zoster Vaccine Recombinant (Shingrix) 10/28/2022 ,06/03/2022 documented as of this encounter Social History Tobacco Use Types Packs/Day Years Used Date Smoking Tobacco: Never Smokeless Tobacco: Never Alcohol Use Standard Drinks/Week Comments No 0 (1 standard drink = 0.6 oz pur e alcohol) PHQ-2 Answer Date Recorded PHQ-2 Score 0 02/27/2019 Hunger Vital Sign Answer Date Recorded Within the past 12 months, y ou worried that your food would run out before you got the money to buy more. Never true 09/28/19 23 Within the past 12 months, t he food you bought just didn't last and you didn't have money to get more. Never true 09/27/2022 Sex and Gender Information Value Date Recorded Sex Assigned at Female 06/20/2019 3:33 PM EST Gender Identity Female 06/20/2019 3:33 PM EST Sexual Orientation Straight 06/20/2019 3: 33 PM EST Job Start Date Occupation Industry Not on file Not on file Not on file documented as of this encounter Last Filed Vital Signs Vital Sign Reading Time Taken Comments Blood Pressure 111/82 08/14/2023 3:55 PM EDT Pulse 60 08/14/2023 3:55 PM EDT Temperature 36.6 C (97.8 F) 08/14/2023 3:55 PM ED T Respiratory Rate 18 08/14/2023 3:55 PM EDT Oxygen Saturation 94% 08/14/2023 3:55 PM EDT Inhaled Oxygen Concentration - - Weight 61.9 kg (136 lb 8 oz) 08/14/2023 6:00 AM EDT Height 157.5 cm (5' 2") 08/10/2023 10:00 AM EDT Body Mass Index 24.97 08/10/2023 10:00 AM EDT documented in this encounter Functional Status Functional Status Response Date of Assess ment Are you deaf or do you have serious difficulty h earing? No 08/10/2023 Are you blind or do you have serious difficulty seeing, even when wearing glasses? No 08/10/2023 Do you have serious difficul ty walking or climbing stairs? (5 years old or older) Yes 08/10/2023 Do you have difficulty dress ing or bathing? (5 years old or older) No 08/10/2023 Because of a physical, menta l, or emotional condition, do you have difficulty doing errands alone such as visiting a doctor s office or shopping? (15 years old or older) No 08/10/19 Cognitive Status Response Date of Assessm ent Because of a physical, menta l, or emotional condition, do you have serious difficulty concentrating, remembering, or making decisions? (5 years old or older) No 08/10/2023 documented as of this encounter Discharge Summaries * Jayesh Hamilton DO - 08/14/2023 12:23 PM EDT [address] [place] [id number] Admission Date: 08/10/2023 Discharge Date: 08/14/2023 RECOMMENDED TO DO FOR NEXT PROVIDER(S): Subacute Follow-up (4 - 8 weeks) -Make sure patient has the MRI in one month for evaluation of brain bleed. This is also required prior to her neurology follow up. -Stop eliquis at this time and can discuss restarting it at follow up visit. -Continue aspirin and statin therapy -Ensure no longer taking keppra Secondary stroke risk education: BP medications for goal less than 130/80 Statin for goal LDL less than 70 Regular screen for Diabetes with goal HbA1c less than 7.0 and good glycemic control A low fat, low carbohydrate, low sodium diet Secondary stroke risk reduction: Aspirin (* refer to below medication list for dosages on the above) SCHEDULED FOLLOW-UP: Future Appointments Appt Date/Time Provider Department 08/18/2023 9:30 AM Michelle Gallagher CRNP Cardiology, [facility] 10/31/2023 4:00 PM Anastasia Reza DO Family Practice [facility] 02/01/2024 10:00 AM Jeanette Fraire PA-C Neurology [facility] DISPOSITION ON DISCHARGE: [facility] DISCHARGE DIAGNOSES: Active Hospital Problems Diagnosis *Principal Diagnosis - Intracranial hemorrhage (HCC) Cerebral cavernoma Impaired mobility and ADLs Right-sided sensory deficit present Chronic anticoagulation Resolved Hospital Problems Diagnosis Date Resolved Abnormal CT of the head 08/14/2023 RISK FACTORS IDENTIFIED: Ischemic Stroke Risk Factors Hypertension Congestive Heart Failure Atrial Fibrillation / Flutter Hypercoagulable State Hemorrhagic Stroke Risk Factors Hypertension Currently taking antithrombotic medication Stroke Mimic Risk Factors Cancer PROPOSED STROKE MECHANISM: N/A ADMISSION HISTORY & PHYSICAL EXAM (focused): 83-year-old female with past medical history of breast cancer, lymphoma, pancreatic neuroendocrine tumor, asplenic, paroxysmal AFib on Eliquis, hypertension, who presents as a transfer from [facility] for left frontal parietal IPH with ICH score 1. Patient reports left lower extremity numbness and weakness for about 1 week, on and off. Last night the numbness and weakness returned and was persistent and then started feeling in her right lower extremity. She alerted her [facility] andwas taken to [facility]. Imaging at [facility] showed: 08/10/[address] head without contrast: 2.6 cm diameter IPH in the left frontal lobe with surrounding vasogenic edema. Chronic periventricular ischemic demyelination changesseen due to small-vessel disease. 2 mm midline shift to the right. Mild mass effect seen over the left lateral ventricle. 0600 CTA head/Neck: No occlusion, hemodynamically significant stenosis, or dissection of the major cervical arteries. 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 Patient denies subjective fevers, chills, nausea, vomiting, BM changes, chest pain, abdominal pain,heart palpitations, SOB, headache, dizziness. Patient transferred to [facility] for IPH management with Neurosurgery. General: Elderly female, Well developed, well nourished. Head: Normocephalic, atraumatic. Eyes: PERRL, EOM intact, conjunctiva and sclera clear, without nystagmus, lids normal. Ears: grossly normal hearing. Mouth: MMM. Neck: No JVD, trachea midline. Chest: Grossly normal appearance. Lungs: Clear bilaterally with normal respiratory effort. Heart: Irregular rate and rhythm, normal S1, S2. Abdomen: Soft, non-tender, normal bowel sounds. Extremities: No clubbing, no cyanosis, no edema. Neuro: No focal deficits, cranial nerves II-XII grossly intact, equal strength in all extremities. Pulses: Pulses normal in all extremities. Skin: Warm, well perfused. Psych: Alert and oriented to time, person, place. HOSPITAL COURSE (focused): 83F who presented to [facility] for right leg weakness and agraphesthesia. She had an NIHSS of 2 and was found to have a left frontoparietal IPH on CT imaging. However, the age of the infarct was unclear given its appearance. Etiology of bleed was likely either cerebral amyloid angiopathy given her age, history of TIAs, and lobar bleeds vs cavernoma hemorrhage. Patient has also had radiation to the leftparotid gland in 2019 and studies have shown radiation can cause cavernous hemorrhages years after radiation. Eliquis was held to not worsen the bleed and she was continued on PELOTA MAKER aspirin and statinsfor secondary stroke prevention. She was started on Keppra by neurosurgery and discontinued upon dis charge. She will require MRI in one month to further characterize her brain bleed and discussion onrestarting anticoagulation at that time. She was discharged stable on 08/14/23 and will need continued PT and OT. Stroke Center Guidelines and Treatment: Therapy needs were identified with recommendations as follows: . P.T. - Bed mobility training, Transfer training, Gait training, Strengthening exercises: B/L LE, Balance activities, and Educate on safety with functional mobility O.T. - Safety, Bed mobility training, Functional Ambulation, Transfer Training, Upper extremity strengthening, Balance activities, ADL training and Endurance Antithrombotic Therapy: receiving antiplatelet or anticoagulation Atrial Fibrillation or Flutter: yes - anticoagulation currently contraindicated, reason: IPH Statin: Yes Stroke Education: personal risk factors for stroke medications prescribed and side effects warning signs for stroke, and activation of the emergency medical system bleeding risk diabetes mellitus teaching about diagnosis and management lifestyle changes including dietary modification and exercise/activity level rehabilitation expectations future diagnostic evaluation need for follow up after discharge potential consequences of not complying with care, treatment, and services Stroke Specific Test Results: Neuroimaging: CT Scan/CT Angio: Early subacute appearing left frontoparietal intraparenchymal hematoma, grossly matching the size described in the report from CTA head/neck performed at an outside institution on 08/10/2023. Similar degree of previously described surrounding edema and mass effect with approximately 1-2 mm rightward midline shift and flattening of the left lateral ventricle. Potential focus of subarachnoid hemorrhage along the left parieto-occipital fissure sulcus, likely reflecting redistribution of pre-existing blood from the intraparenchymal hematoma. Correlation with prior external imaging is advised to assess for stability of this finding. MRI: 21 x 25 x 25 mm left posterior frontal/parietal lobe intraparenchymal hemorrhage, with associated mass-effect. Focal lesion with associated susceptibility and minimal enhancement anterior to hemorrhage, nonspecific in etiology. 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 Test Results Still Pending at Discharge: none MEDICATIONS: MEDICATION UPDATES AT DISCHARGE CHANGE how you take these medications INSTRUCTIONS Digoxin 125 mcg Tablet Commonly known as: Lanoxin What changed: how much to take how to take this when to take this additional instructions Take one three days per wek CONTINUE taking these medications INSTRUCTIONS alendronate 70 MG Tablet Commonly known as: Fosamax Take 1 Tablet by mouth once a day on Monday only. (07) Anastrozole 1 MG Tablet Commonly known as: Arimidex Take 1 Tablet by mouth in the morning. (08). aspirin enteric coated 81 MG Tbec Take 1 Tablet by mouth in the morning. Calcium Carb-Cholecalciferol 600-200 MG-UNIT per tablet Take 1 Tablet by mouth in the morning. (08). carbidopa-levodopa 25-100 mg per tab 25-100 MG per tablet Commonly known as: Sinemet Take 0.5 Tablets by mouth in the morning and 0.5 Tablets at noon and 0.5 Tablets before bedtime. D3 2000 50 MCG (1999) Capsule Generic drug: Cholecalciferol Take 1 Capsule by mouth in the morning. (799). Docusate Sodium 100 MG Capsule Commonly known as: Colace Take 1 Capsule by mouth 2 times a day. () Furosemide 40 MG Tablet Commonly known as: Lasix Take 1.5 Tablets by mouth once a day on Monday, Monday, and Monday only. And 40 mg all other days (799) melatonin 3 MG Tablet Take 1 Tablet by mouth at bedtime as needed for Sleep. metoprolol succinate XL 50 MG Tb24 Commonly known as: toPROL XL Take 1 Tablet by mouth in the morning. milk of magnesia 400 MG/5ML suspension Commonly known as: Mom Take 30 mL by mouth daily as needed for Constipation. Multi-Vitamin Daily Tablet Take 1 Tablet by mouth in the morning. (08). oxygen Gas Use 2 L/min(Oxygen) as directed at bedtime. Pravastatin Sodium 80 MG Tablet Take 1 Tablet by mouth in the morning. senna Tablet Commonly known as: Senokot Take 1 Tablet by mouth 2 times a day. () Spironolactone 25 MG Tablet Commonly known as: Aldactone Take 0.5 Tablets by mouth in the morning. (08). STOP taking these medications Apixaban 5 MG Tablet Commonly known as: Eliquis Operations & Procedures: none Complications: none significant OTHER INFORMATION: Vital Signs (last recorded): Most Recent Systolic BP: 124 mmHg (08/14/23 1100) Most Recent Diastolic BP: 88 mmHg (08/14/23 1100) Pulse: 71 (08/14/23 1100) Resp: 18 (08/14/23 0352) Most Recent Temperature: 36.39 C (08/14/23 1100) Weight: 61.9 kg (136 lb 8 oz) (08/14/23 0600) SpO2: 96 % (08/14/23 1100) Allergies: Ezetimibe and Chlorpheniramine Activity: as tolerated Diet: low sodium and low calorie Code Status: Full Code Condition on Discharge: stable Indwelling Devices: none Isolation status: None Cognition: normal Discharge NIH Stroke Scale: 2 1A. LOC: 0 1B. Question:0 1C. Commands: 0 2. Gaze: 0 3. Visual Wang: 0 4. Facial Palsy:0 5. Arm Left: 0 Arm Right: 0 6. Leg Left: 0 Leg Right: 2 7. Ataxia: 0 8. Sensory: 0 9. Aphasia: 0 10. Dysarthria: 0 11. Extinction: 0 Modified Leoncio Scale: 3 - Moderate disability. Requires some help, but able to walk without the assistance of another individual. CONSULTS ORDERED: ADULT OCCUPATIONAL THERAPY CONSULT IP ADULT PHYSICAL THERAPY CONSULT IP ADULT SPEECH THERAPY CONSULT IP (ACUTE CARE REHAB) CARE MANAGEMENT CONSULT IP REHAB CONSULT IP NEUROSURGERY CONSULT IP NEUROLOGY CONSULT IP REFERRING PHYSICIAN: Ref: YOANA GABRIEL[[id number]] [address] [place] [address] (office) [phone] (fax) PRIMARY CARE PROVIDER: PCP: Anastasia Reza DO [address] / [place] [address] (office) [phone] (fax) Note: To contact a physician responsible for this patients hospital care, please call [facility] [phone]. Associated attestation - Colton Vitale DO - 08/14/2023 4:55 PM EDT I saw and evaluated the patient today. I have reviewed the trainee note and agree. 83 y/o F with left frontoparietal IPH, etiology possibly CAA vs. cavernoma. I personally reviewed the patients MRI's from 03/2022, 05/2023, and 07/2023. She has one SWI lesion in 2021 and two in May 2023, the more anterior of the two is the source of bleeding from this months event. The size of these lesions is larger than would be expected in CAA; they appear more consistent with cavernomas based on size. She has a hx of head/neck radiation to her left parotid gland which could be the cause of the cavernomas (radiation induced). Recommend repeat MRI brain in one month and further discussion with OP neurology regarding risk of restarting AC. I spent a total of 34 minutes providing discharge day management for this patient. The management included final examination of the patient, discussion of the hospital stay with the patient and/or caregivers, and preparation of discharge records, prescriptions, and referral forms that relate to thepatient's hospital stay. This time is reflective of my part in the discharge day management as documented in the summary and notes, and doesn't include resident or other providers time providing the above to the patient. documented in this encounter Discharge Instructions * Discharge Instr - AVS* Jayesh Hamilton DO - 08/14/2023 12:23 PM EDT Discharge Date: 08/14/23 You may call Stroke neurology at [phone] during business hours. For after- hours emergencies call [phone] and have the on-call Neurologist paged. The information below provides you with the instructions and the list of medications you need to betaking following discharge from the hospital. If you have any questions, please ask before leaving.Please carry this letter with you when you see your doctor in the clinic. If you have questions, you can reach us at the numbers above. Brief summary of your inpatient care: 83F who presented to [facility] for right leg weakness and agraphesthesia. She had an NIHSS of 2 and was found to have a left frontoparietal IPH on CT imaging. However, the age of the infarct was unclear given its appearance. Etiology of bleed was likely either cerebral amyloid angiopathy given her age, history of TIAs, and lobar bleeds vs cavernoma hemorrhage. Eliquis was held to not worsen the bleed and she was continued on PELOTA MAKER aspirin and statins for secondary stroke prevention. She was started on Keppra by neurosurgery and discontinued upon discharge. She will require MRI in one month to furthercharacterize her brain bleed and discussion on restarting anticoagulation at that time. She was disc harged stable on 08/14/23 and will need continued PT and OT. Your doctors during this hospitalization included: Dr. Elena, Dr. Vitale Diet: Stroke Diet (low sodium, low cholesterol, low fat, and low calories) Activity: As tolerated See your primary care physician (Anastasia Reza DO) in 1 week(s). See Stroke Neurology on 1 month. SPECIAL INSTRUCTIONS: -Make sure to have the MRI in one month for evaluation of your brain bleed. This is also required prior to your neurology follow up. -Stop eliquis at this time and can discuss restarting it at follow up visit. -Continue aspirin and statin therapy -Stop Keppra as you no longer need it. Stroke education was given for the following: Activation of emergency medical system. Follow-up after discharge. Medications prescribed at discharge. Risk factors for stroke. Warning signs and symptoms of stroke. Patient given Epic Supply handouts: Risk Factors for Stroke Symptoms of a Stroke Discharge Instructions for Stroke Discharge Instructions for Transient Ischemic Attack (TIA) When to Use the Emergency Room (ER) Stroke: Taking Medications Make sure to bring the following items to your neuro follow-up appointment: (use the lines below as a check list when preparing for follow-up appointment) Medication list and medications in their bottles Copy of discharge instructions Any outside records Copies of any outside images Family member or friend A list of any questions you may have IF YOU HAVE ANY OF THE FOLLOWING SYMPTOMS, CALL 911 IMMEDIATELY. Stroke Symptoms: Give me 5 1. Walk - sudden trouble walking, dizziness, loss of balance or coordination 2. Talk - sudden confusion, trouble speaking or understanding 3. Reach - sudden weakness or numbness of the face, arm, or leg, especially on one side of the body 4. See - sudden trouble seeing in one or both eyes 5. Feel - sudden, severe headache with no cause documented in this encounter Progress Notes * Jayesh Hamilton DO - 08/13/2023 1:58 PM EDT STROKE PROGRESS NOTE - Stroke / Vascular Neurology [facility] [place]-[address] [address] Name: Sofya Perez Location: [facility] G409/[id number] Date: 08/13/2023 Time: 2:04 PM SUBJECTIVE: 83F with history of afib on eliquis, HF, HTN, breast CA, and recent TIAs who [facility] a [facility] for left frontoparietal IPH, NIHSS 2. Etiology of IPH unclear but given a number ofchronic bleeds seen on SWI, recurrent history of TIA, age, and chronic conditions, could have element of CAA vs metastasis from known malignancy. Unlikely to be from hypertension given BP seems well controlled. MRI showing IPH but age of lesion unclear as lesion is heterogenous and extensive white matter changes with diffuse cortical and subcortical infarcts. Changes since last visit: NAEO. Patient still with some numbness in her right leg but no new symptoms and no worsening. 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 lymphoma Paroxysmal atrial fibrillation (HCC) 05/02/2019 S/P splenectomy 08/16/2019 Sleep apnea, obstructive Thyroid nodule 12/27/2018 non-specific thyroid nodule on right lobe measuring 2.8x1.6x1.7cm on CT, pt states bx negative. Pertinent past social history: Social History Tobacco Use Smoking status: Never Smokeless tobacco: Never Vaping Use Vaping Use: Never used Substance Use Topics Alcohol use: No Drug use: No Current Medications: Note that completed medications (per the MAR) continue to display for 24 hours. Ordered medicationsto be given in the future also display. Current Facility-Administered Medications Medication Dose Route Frequency Provider hEParin inj 5,000 Units 5,000 Units Subcutaneous Q8H Stephen Zuniga MD levETIRAcetam (Keppra) tab 500 mg 500 mg Oral BID(AM/PM) Stephen Zuniga MD Acetaminophen (Tylenol) supp 650 mg 650 mg Rectal Q4H PRN Stephen Zuniga MD Anastrozole (Arimidex) tab 1 mg 1 mg Oral Daily(AM) Stephen Zuniga MD carbidopa-levodopa 25-100 mg per tab (Sinemet) 0.5 Tablet 0.5 Tablet Oral TID(AM/NOON/HS) Stephen Zuniga MD chlorHEXIDINE (Periogard) 0.12 % oral rinse 15 mL 15 mL Oral mucosal membrane BID (799,1999) Stephen Zuniga MD Digoxin (Lanoxin) tab 125 mcg 125 mcg Oral M;;F Stephen Zuniga MD Docusate Sodium (Colace) cap 100 mg 100 mg Oral BID(AM/PM) Stephen Zuniga MD labetalol (Trandate) inj 10 mg 10 mg Intravenous Q15 Min PRN Stephen Zuniga MD metoprolol succinate XL (toPROL XL) tab 50 mg 50 mg Oral Daily(AM) Stephen Zuniga MD Oral Hygiene: Mouth Swab with dentifrice Oral Q4H Limited (00;04;12;16) Stephen Zuniga MD Pravastatin Sodium TABS 80 mg 80 mg Oral Daily(AM) Stephen Zuniga MD senna (Senokot) 1 Tablet 1 Tablet Oral BID(AM/PM) Stephen Zuniga MD OBJECTIVE: Physical Examination: Most Recent Vital Signs: BP: 128 mmHg/91 mmHg (08/13/23 0740) Pulse: 72 (08/13/23 115) Temp: 36.61 C (08/13/23 115) Temp Summary: Temp Min: 36.2 C (97.2 F) Max: 36.7 C (98.1 F) SpO2: 96 % (08/12/238) O2 flow rate: Supplemental O2 Delivery: Room Air, None (08/13/23 115) Weight: 62.4 kg (137 lb 8 oz) (08/13/23 0600) Height: 157.5 cm (5' 2") (08/10/23 1000) Body mass index is 25.15 kg/m. Vital Signs Last 24 Hours: Systolic BP: Most Recent Systolic BP Av.5 mmHg Min: 91 mmHg Max: 128 mmHg Temperature: Most Recent Temperature Av.5 C Min: 36.22 C Max: 36.72 C Pulse: Pulse Av.2 Min: 54 Max: 72 Respirations: Resp Av.2 Min: 18 Max: 20 SpO2: SpO2 Av % Min: 93 % Max: 96 % General Examination: Constitutional: Appearance non-obese, no deformities, and well groomed Head/face, ears, nose, throat: normocephalic, atraumatic Cardiovascular: normal heart sounds, regular rate, regular rhythm, normal pulses, and no carotid bruit Psychiatric: normal judgement and insight, normal mood, and normal affect Neurologic Examination: Ophthalmoscopic: discs sharp, no papilledema, and vasculature normal Mental Status and Orientation: awake, alert, oriented x 3, states month is September Memory: intact to recent and remote recall Attention: normal Knowledge:normal, knows president Language: no aphasia Speech: no dysarthria Cranial Nerves: CN 2 - no visual defect on confrontation and pupils round, equal, reactive to light CN 3, 4, 6 - extra-ocular movements intact and no nystagmus CN 5 - facial sensation intact V1-3 CN 7 - no facial asymmetry CN 8 - intact hearing CN 9, 10 - palate symmetric, uvula midline, no deviation CN 11 - shoulder shrug full strength CN 12 - tongue protrudes midline Sensory: intact to light touch Coordination: intact with finger to nose testing Gait: deferred due to fall risk Muscle Tone: normal Muscle exam: Unable to hold either LE up against gravity longer than 5 seconds. Distal strength in RLE is 3/5 and 4/5 in LLE Reflexes: Biceps 2+, patella 1+ Laboratory Values: reviewed. -- Brief labs below include the 7 most recent results over the past week. Blood Gas: No results in the last 7 days - inpatent use only Chemistry Panel: Lab results within last 7 days (see chart for full results) Units 08/13/23 0807 08/12/23 0640 08/11/23 0424 Sodium mmol/L 139 138 140 Potassium mmol/L 4.7 4.4 4.3 Chloride mmol/L 106 104 104 CO2 mmol/L 22 27 29 BUN mg/dL 20 27* 21* Creatinine mg/dL 0.8 0.9 0.9 Estimated Glomerular Filtration Rate mL/min 77 62 63 Glucose mg/dL 93 108 86 Calcium mg/dL 8.5 8.5 8.5 Anion Gap mmol/L 11 7 7 Complete Blood Count: Lab results within last 7 days (see chart for full results) Units 08/10/23 1413 08/10/23 1011 WBC K/uL 4.37 4.72 HGB g/dL 12.8 12.5 HCT % 39.1 38.3 PLT K/uL 251 270 MCV fL 101.3 101.3 Cardiac Studies: No results in the last 7 days - inpatent use only Coagulation Studies: Lab results within last 7 days (see chart for full results) Units 08/10/23 1011 Prothrombin Time seconds 14.8 INR 1.2 aPTT seconds 29 Liver Function Panel: No results in the last 7 days - inpatent use only Infectious Studies: No results in the last 7 days - inpatent use only Cultures: reviewed. No results in the last 7 days - inpatent use only Recent Cultures (2 Weeks) 12/02/2022 04/13/2022 1:22 PM 3:42 PM QUANT URINE CULTURE GROWTH No significant growth No significant growth Radiographic Studies (last 72 hours): reviewed. MRI BRAIN W WO CONTRAST Result Date: 08/10/2023 IMPRESSION: 1. 21 x 25 x 25 mm left posterior frontal/parietal lobe intraparenchymal hemorrhage, with associated mass-effect. 2. Focal lesion with associated susceptibility and minimal enhancement anterior to hemorrhage, nonspecific in etiology. 3. 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 4. 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 5. Patchy/confluent nonspecific cerebral white matter T2/FLAIR hyperintense and nonenhancing foci, compatible with moderate microvascular ischemic changes, greater in extent/number for stated age. This case was submitted to the Radiology Backup Administrative Coordinator (DIRECTOR OF CATH LAB): Significant Abnormal Result. IMPRESSION: 83F with history of afib on eliquis, HF, HTN, breast CA, and recent TIAs who [facility] a [facility] for left frontoparietal IPH, NIHSS 2. MRI brain w/wo completed which shows heterogenous left posterior frontal/parietal lobe IPH with heterogeneous T1 and T2 intensity. Given lack of significant acute onset deficits and appearence of IPH on MRI, suspect slower process to IPH. MRI also shows 2 foci of hemosiderin deposition and possible cavernoma. Review of MRI from 05/11/23 is limited given no SWAN imaging. MRI from 04/16/22 shows single micro hemorrhage in L temporal lobe. 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 Would also consider cavernoma, hemorrhagic mass, hemorrhagic conversion of stroke. Repeat MRIbrain w/wo in 3 months would be helpful to further assess etiology. RECOMMENDATIONS/PLAN: - Will need repeat MRI brain w/wo contrast in 3 months for re-evaluation - Neuro checks Q4H - Continue pravastatin 80mg - SBP goal <140 - Hold PELOTA MAKER Eliquis - Holding PELOTA MAKER ASA 81 mg. Can consider restarting in a month if continues to be stable so likely around mid August - Keppra ppx per NSGY. Ending 08/15 Chronic Medical Conditions: PD: C/w Sinemet 0.5 tablets TID pAF: Holding Elqiuis, C/w Digoxin and toprol Breast CA: C/w Anastrozole Dispo: return back to [facility] Stroke Checklist: DVT Prophylaxis: receiving mechanical, but chemical contraindicated, reason: IPH Antithrombotic Therapy: contraindicated, reason: IPH Atrial Fibrillation or Flutter: yes - anticoagulation currently contraindicated, reason: IPH Statin: receiving - high intensity Stroke Education: personal risk factors for stroke Rehab Therapy Plan: O.T., P.T., and Speech Additional Stroke Care (or Document Contraindication) as Follows: Bedside dysphagia screen; if patient does not pass, maintain NPO and order formal speech evaluation Lab work including CBC, CMP, PT/INR, aPTT Markers of cardiac ischemia (eg. Troponin) and obtain EKG Lipid panel and initiate high intensity statin therapy for LDL goal less than 70 Control blood sugar for goal less than 180, and preferably less than 140, and check HbA1c DVT prophylaxis P.T./O.T./Speech/Rehabilitation consultations Stroke education (contact stroke nurse if necessary) Patient Has Decision Making Capacity: yes Code Status: Full Code The patient was examined and was discussed with Dr. Moi Elena. Associated attestation - Moi Elena MD - 08/13/2023 4:04 PM EDT I saw and evaluated the patient today. I have reviewed the trainee note and agree. Some mild hypoactive delirium at this time, otherwise seems to be doing well * AlexisNadege dominguezDO - 08/12/2023 7:32 AM EDT TRANSFER RECEIVING NOTE - Stroke Neurolgy [address] [address] Name: Sofya Perez Current Location: [facility] G409/A HANDOFF COMMUNICATION: Sending patient service: [facility] Accepting service: Neurology Sending attending aware of patient and transfer: yes Receiving attending aware of patient and transfer: yes Name of receiving attending provider: Dr. Elena Patient care is being assumed by receiving service: when patient arrives in receiving unit Reason for transfer: step down of care SUBJECTIVE: 83F with history of afib on eliquis, HF, HTN, breast CA, and recent TIAs who presents as a [facility] for left frontoparietal IPH, NIHSS 2. Etiology of IPH unclear but given a number ofchronic bleeds seen on SWI, recurrent history of TIA, age, and chronic conditions, could have element of CAA vs metastasis from known malignancy. Unlikely to be from hypertension given BP seems well controlled. MRI showing IPH but age of lesion unclear as lesion is heterogenous and extensive white matter changes with diffuse cortical and subcortical infarcts. Changes since last visit: Patient seen at bedside. She states she has noted gait instability for the last 2 months. She notedmore trouble with her left leg. About 2 weeks ago she had some word finding trouble. She wanted to come to the ED this admission because she woke up from sleep and did not feel right. She is drowsy this morning. She has trouble lifting both of her legs on exam which she states is not new. She uses a walker at baseline. There is PT that can come to her [facility]. 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 lymphoma Paroxysmal atrial fibrillation (HCC) 05/02/2019 S/P splenectomy 08/16/2019 Sleep apnea, obstructive Thyroid nodule 12/27/2018 non-specific thyroid nodule on right lobe measuring 2.8x1.6x1.7cm on CT, pt states bx negative. Pertinent past social history: Social History Tobacco Use Smoking status: Never Smokeless tobacco: Never Vaping Use Vaping Use: Never used Substance Use Topics Alcohol use: No Drug use: No Current Medications: Note that completed medications (per the MAR) continue to display for 24 hours. Ordered medicationsto be given in the future also display. Current Facility-Administered Medications Medication Dose Route Frequency Provider hEParin inj 5,000 Units 5,000 Units Subcutaneous Q8H Stephen Zuniga MD levETIRAcetam (Keppra) tab 500 mg 500 mg Oral BID(AM/PM) Stephen Zuniga MD Acetaminophen (Tylenol) supp 650 mg 650 mg Rectal Q4H PRN Stephen Zuniga MD Anastrozole (Arimidex) tab 1 mg 1 mg Oral Daily(AM) Stephen Zuniga MD carbidopa-levodopa 25-100 mg per tab (Sinemet) 0.5 Tablet 0.5 Tablet Oral TID(AM/NOON/HS) Stephen Zuniga MD chlorHEXIDINE (Periogard) 0.12 % oral rinse 15 mL 15 mL Oral mucosal membrane BID (0800,1999) Stephen Zuniga MD Digoxin (Lanoxin) tab 125 mcg 125 mcg Oral M;; Stephen Zuniga MD Docusate Sodium (Colace) cap 100 mg 100 mg Oral BID(AM/PM) Stephen Zuniga MD labetalol (Trandate) inj 10 mg 10 mg Intravenous Q15 Min PRN Stephen Zuniga MD metoprolol succinate XL (toPROL XL) tab 50 mg 50 mg Oral Daily(AM) Stephen Zuniga MD Oral Hygiene: Mouth Swab with dentifrice Oral Q4H Limited (00;04;12;16) Stephen Zuniga MD Pravastatin Sodium TABS 80 mg 80 mg Oral Daily(AM) Stephen Zuniga MD senna (Senokot) 1 Tablet 1 Tablet Oral BID(AM/PM) Stephen Zuniga MD OBJECTIVE: Physical Examination: Most Recent Vital Signs: BP: 137 mmHg/87 mmHg (08/12/23456) Pulse: 75 (08/12/23456) Temp: 36.28 C (08/12/23456) Temp Summary: Temp Min: 36 C (96.8 F) Max: 36.5 C (97.7 F) SpO2: 97 % (08/12/23456) O2 flow rate: Supplemental O2 Delivery: Room Air, None (08/12/23456) Weight: 62.9 kg (138 lb 9.6 oz) (08/12/23456) Height: 157.5 cm (5' 2") (08/10/23 1000) Body mass index is 25.35 kg/m. Vital Signs Last 24 Hours: Systolic BP: Most Recent Systolic BP Av.7 mmHg Min: 88 mmHg Max: 146 mmHg Temperature: Most Recent Temperature Av.3 C Min: 36 C Max: 36.5 C Pulse: Pulse Av.9 Min: 58 Max: 80 Respirations: Resp Av.1 Min: 12 Max: 29 SpO2: SpO2 Av.2 % Min: 93 % Max: 100 % General Examination: Constitutional: Appearance non-obese, no deformities, and well groomed Head/face, ears, nose, throat: normocephalic, atraumatic Cardiovascular: normal heart sounds, regular rate, regular rhythm, normal pulses, and no carotid bruit Psychiatric: normal judgement and insight, normal mood, and normal affect Neurologic Examination: Ophthalmoscopic: discs sharp, no papilledema, and vasculature normal Mental Status and Orientation: awake, alert, oriented x 3, states month is September Memory: intact to recent and remote recall Attention: normal Knowledge:normal, knows president Language: no aphasia Speech: no dysarthria Cranial Nerves: CN 2 - no visual defect on confrontation and pupils round, equal, reactive to light CN 3, 4, 6 - extra-ocular movements intact and no nystagmus CN 5 - facial sensation intact V1-3 CN 7 - no facial asymmetry CN 8 - intact hearing CN 9, 10 - palate symmetric, uvula midline, no deviation CN 11 - shoulder shrug full strength CN 12 - tongue protrudes midline Sensory: intact to light touch Coordination: intact with finger to nose testing Gait: deferred due to fall risk Muscle Tone: normal Muscle exam: Unable to hold either LE up against gravity longer than 5 seconds. Distal strength in RLE is 3/5 and 4/5 in LLE Reflexes: Biceps 2+, patella 1+ Laboratory Values: reviewed. -- Brief labs below include the 7 most recent results over the past week. Blood Gas: No results in the last 7 days - inpatent use only Chemistry Panel: Lab results within last 7 days (see chart for full results) Units 08/12/23 0640 08/11/23 0424 Sodium mmol/L 138 140 Potassium mmol/L 4.4 4.3 Chloride mmol/L 104 104 CO2 mmol/L 27 29 BUN mg/dL 27* 21* Creatinine mg/dL 0.9 0.9 Estimated Glomerular Filtration Rate mL/min 62 63 Glucose mg/dL 108 86 Calcium mg/dL 8.5 8.5 Anion Gap mmol/L 7 7 Complete Blood Count: Lab results within last 7 days (see chart for full results) Units 08/10/23 1413 08/10/23 1011 WBC K/uL 4.37 4.72 HGB g/dL 12.8 12.5 HCT % 39.1 38.3 PLT K/uL 251 270 MCV fL 101.3 101.3 Cardiac Studies: No results in the last 7 days - inpatent use only Coagulation Studies: Lab results within last 7 days (see chart for full results) Units 08/10/23 1011 Prothrombin Time seconds 14.8 INR 1.2 aPTT seconds 29 Liver Function Panel: No results in the last 7 days - inpatent use only Infectious Studies: No results in the last 7 days - inpatent use only Cultures: reviewed. No results in the last 7 days - inpatent use only Recent Cultures (2 Weeks) 12/02/2022 04/13/2022 1:22 PM 3:42 PM QUANT URINE CULTURE GROWTH No significant growth No significant growth Radiographic Studies (last 72 hours): reviewed. MRI BRAIN W WO CONTRAST Result Date: 08/10/2023 IMPRESSION: 1. 21 x 25 x 25 mm left posterior frontal/parietal lobe intraparenchymal hemorrhage, with associated mass-effect. 2. Focal lesion with associated susceptibility and minimal enhancement anterior to hemorrhage, nonspecific in etiology. 3. 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 4. 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 5. Patchy/confluent nonspecific cerebral white matter T2/FLAIR hyperintense and nonenhancing foci, compatible with moderate microvascular ischemic changes, greater in extent/number for stated age. This case was submitted to the Radiology Backup Administrative Coordinator (DIRECTOR OF CATH LAB): Significant Abnormal Result. CT HEAD/BRAIN WO CONTRAST Result Date: 08/10/2023 IMPRESSION: Early subacute appearing left frontoparietal intraparenchymal hematoma, grossly matching the size described in the report from CTA head/neck performed at an outside institution on 08/10/2023. Similar degree of previously described surrounding edema and mass effect with approximately 1-2mm rightward midline shift and flattening of the left lateral ventricle. Potential focus of subarachnoid hemorrhage along the left parieto-occipital fissure sulcus, likely reflecting redistribution of pre-existing blood from the intraparenchymal hematoma. Correlation with prior external imaging is advised to assess for stability of this finding. No other areas suspicious for recent intracranial he morrhage or acute territorial infarction. Small chronic infarctions involving the right parietal lobe and bilateral cerebellar hemispheres. Chronic microvascular white matter disease and parenchymal volume loss. MR imaging is often more sensitive in the detection of acute or subtle ischemic, inflammatory or neoplastic lesions, and can be considered if there are persistent or unexplained neurologic findings. IMPRESSION: 83F with history of afib on eliquis, HF, HTN, breast CA, and recent TIAs who [facility] frontoparietal IPH, NIHSS 2. MRI brain w/wo completed which shows heterogenous left posterior frontal/parietal lobe IPH with heterogeneous T1 and T2 intensity. Given lack of significant acute onset deficits and appearence of IPH on MRI, suspect slower process to IPH. MRI also shows 2 foci of hemosiderin deposition and possible cavernoma. Review of MRI from 05/11/23 is limited given no SWAN imaging. MRI from 04/16/22 shows single micro hemorrhage in L temporal lobe. 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 Would also consider cavernoma, hemorrhagic mass, hemorrhagic conversion of stroke. Repeat MRIbrain w/wo in 3 months would be helpful to further assess etiology. RECOMMENDATIONS/PLAN: - Will need repeat MRI brain w/wo contrast in 3 months for re-evaluation - Neuro checks Q4H - Continue pravastatin 80mg - SBP goal <140 - Hold PELOTA MAKER Eliquis - Holding PELOTA MAKER ASA 81 mg - Keppra ppx per NSGY Chronic Medical Conditions: PD: C/w Sinemet 0.5 tablets TID pAF: Holding Elqiuis, C/w Digoxin and toprol Breast CA: C/w Anastrozole Dispo: likely return back to [facility] Stroke Checklist: DVT Prophylaxis: receiving mechanical, but chemical contraindicated, reason: IPH Antithrombotic Therapy: contraindicated, reason: IPH Atrial Fibrillation or Flutter: yes - anticoagulation currently contraindicated, reason: IPH Statin: receiving - high intensity Stroke Education: personal risk factors for stroke Rehab Therapy Plan: O.T., P.T., and Speech Additional Stroke Care (or Document Contraindication) as Follows: Bedside dysphagia screen; if patient does not pass, maintain NPO and order formal speech evaluation Lab work including CBC, CMP, PT/INR, aPTT Markers of cardiac ischemia (eg. Troponin) and obtain EKG Lipid panel and initiate high intensity statin therapy for LDL goal less than 70 Control blood sugar for goal less than 180, and preferably less than 140, and check HbA1c DVT prophylaxis P.T./O.T./Speech/Rehabilitation consultations Stroke education (contact stroke nurse if necessary) Patient Has Decision Making Capacity: yes Code Status: Full Code The patient was examined and was discussed with Dr. Moi Elena. Associated attestation - Moi Elena MD - 08/12/2023 4:18 PM EDT I saw and evaluated the patient today. I have reviewed the trainee note and agree. Continue to hold anticoagulation. Suspect that this was a slower bleed probably related to a cavernoma in light of an SWI/GRE change in that vicinity seen in a previous MRI which would likely explainthe abnormal appearance of the hematoma. Can consider starting low dose aspirin in the near future,though would likely wait for 1 month. Will need repeat MRI w/wo at 3 months. * HamiltonJayesh - 08/11/2023 1:48 PM EDT STROKE PROGRESS NOTE - Stroke / Vascular Neurology [facility] [place]-[address] [address] Name: Sofya Perez Location: [facility] [id number] Date: 08/11/2023 Time: 2:01 PM SUBJECTIVE: 83F with history of afib on eliquis, HF, HTN, breast CA, and recent TIAs who presents as a [facility] for left frontoparietal IPH, NIHSS 2. Etiology of IPH unclear but given a number ofchronic bleeds seen on SWI, recurrent history of TIA, age, and chronic conditions, could have element of CAA vs metastasis from known malignancy. Unlikely to be from hypertension given BP seems well controlled. MRI showing IPH but age of lesion unclear as lesion is heterogenous and extensive white matter changes with diffuse cortical and subcortical infarcts. Changes since last visit: NAEO. Patient with some mild transient confusion early in day per nurse but no longer confused whenexamined at bedside. Patient states no worsening of her symptoms and denies any headaches. 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 lymphoma Paroxysmal atrial fibrillation (HCC) 05/02/2019 S/P splenectomy 08/16/2019 Sleep apnea, obstructive Thyroid nodule 12/27/2018 non-specific thyroid nodule on right lobe measuring 2.8x1.6x1.7cm on CT, pt states bx negative. Pertinent past social history: Social History Tobacco Use Smoking status: Never Smokeless tobacco: Never Vaping Use Vaping Use: Never used Substance Use Topics Alcohol use: No Drug use: No Current Medications: Note that completed medications (per the MAR) continue to display for 24 hours. Ordered medicationsto be given in the future also display. Current Facility-Administered Medications Medication Dose Route Frequency Provider hEParin inj 5,000 Units 5,000 Units Subcutaneous Q8H Soniya Torres MD levETIRAcetam (Keppra) tab 500 mg 500 mg Oral BID(AM/PM) Soniya Torres MD Acetaminophen (Tylenol) supp 650 mg 650 mg Rectal Q4H PRN Soniya Torres MD Anastrozole (Arimidex) tab 1 mg 1 mg Oral Daily(AM) Soniya Torres MD carbidopa-levodopa 25-100 mg per tab (Sinemet) 0.5 Tablet 0.5 Tablet Oral TID(AM/NOON/HS) Fior Hudson DO chlorHEXIDINE (Periogard) 0.12 % oral rinse 15 mL 15 mL Oral mucosal membrane BID (08,1999) Soniya Torres MD Digoxin (Lanoxin) tab 125 mcg 125 mcg Oral M;W;F Soniya Torres MD Docusate Sodium (Colace) cap 100 mg 100 mg Oral BID(AM/PM) Soniya Torres MD labetalol (Trandate) inj 10 mg 10 mg Intravenous Q15 Min PRN Soniya Torres MD metoprolol succinate XL (toPROL XL) tab 50 mg 50 mg Oral Daily(AM) Soniya Torres MD Oral Hygiene: Mouth Swab with dentifrice Oral Q4H Limited (00;04;12;16) Soniya Torres MD pravastatin (Pravachol) tab 80 mg 80 mg Oral Daily(AM) Soniya Torres MD senna (Senokot) 1 Tablet 1 Tablet Oral BID(AM/PM) Soniya Torres MD OBJECTIVE: Physical Examination: Most Recent Vital Signs: BP: 118 mmHg/89 mmHg (08/11/23 1200) Pulse: 69 (08/11/23 1200) Temp: 36.22 C (08/11/23 1200) Temp Summary: Temp Min: 36 C (96.8 F) Max: 36.7 C (98.1 F) SpO2: 99 % (08/11/23 1200) O2 flow rate: Supplemental O2 Delivery: Room Air, None (04/12/24 1200) Weight: 63.8 kg (140 lb 10.5 oz) (08/11/23 0600) Height: 157.5 cm (5' 2") (08/10/23 1000) Body mass index is 25.73 kg/m. Vital Signs Last 24 Hours: Systolic BP: Most Recent Systolic BP Av.5 mmHg Min: 91 mmHg Max: 146 mmHg Temperature: Most Recent Temperature Av.4 C Min: 36 C Max: 36.72 C Pulse: Pulse Av Min: 64 Max: 87 Respirations: Resp Av.8 Min: 12 Max: 26 SpO2: SpO2 Av.5 % Min: 97 % Max: 100 % General Examination: Constitutional: Appearance non-obese, no deformities, and well groomed Head/face, ears, nose, throat: normocephalic, atraumatic Cardiovascular: normal heart sounds, regular rate, regular rhythm, normal pulses, and no carotid bruit Psychiatric: normal judgement and insight, normal mood, and normal affect Neurologic Examination: Ophthalmoscopic: discs sharp, no papilledema, and vasculature normal Mental Status and Orientation: awake, alert, oriented x 3 Memory: intact to recent and remote recall Attention: normal Knowledge:normal Language: no aphasia Speech: no dysarthria Cranial Nerves: CN 2 - no visual defect on confrontation and pupils round, equal, reactive to light CN 3, 4, 6 - extra-ocular movements intact and no nystagmus CN 5 - facial sensation intact V1-3 CN 7 - no facial asymmetry CN 8 - intact hearing CN 9, 10 - palate symmetric, uvula midline, no deviation CN 11 - shoulder shrug full strength CN 12 - tongue protrudes midline Sensory: intact to light touch Coordination: intact with finger to nose testing Gait: deferred due to fall risk Muscle Tone: normal Muscle exam: 3/5 strength in RLE but 5/5 strength otherwise Reflexes: Brachioradialis Biceps Triceps Patellar Achilles Plantars Fanny's Right 2+ 2+ 2+ 1+ 1+ downgoing not present Left 2+ 2+ 2+ 1+ 1+ downgoing not present Laboratory Values: reviewed. -- Brief labs below include the 7 most recent results over the past week. Blood Gas: No results in the last 7 days - inpatent use only Chemistry Panel: Lab results within last 7 days (see chart for full results) Units 08/11/23 0424 Sodium mmol/L 140 Potassium mmol/L 4.3 Chloride mmol/L 104 CO2 mmol/L 29 BUN mg/dL 21* Creatinine mg/dL 0.9 Estimated Glomerular Filtration Rate mL/min 63 Glucose mg/dL 86 Calcium mg/dL 8.5 Anion Gap mmol/L 7 Complete Blood Count: Lab results within last 7 days (see chart for full results) Units 08/10/23 1413 08/10/23 1011 WBC K/uL 4.37 4.72 HGB g/dL 12.8 12.5 HCT % 39.1 38.3 PLT K/uL 251 270 MCV fL 101.3 101.3 Cardiac Studies: No results in the last 7 days - inpatent use only Coagulation Studies: Lab results within last 7 days (see chart for full results) Units 08/10/23 1011 Prothrombin Time seconds 14.8 INR 1.2 aPTT seconds 29 Liver Function Panel: No results in the last 7 days - inpatent use only Infectious Studies: No results in the last 7 days - inpatent use only Cultures: reviewed. No results in the last 7 days - inpatent use only Recent Cultures (2 Weeks) 12/02/2022 04/13/2022 1:22 PM 3:42 PM QUANT URINE CULTURE GROWTH No significant growth No significant growth Radiographic Studies (last 72 hours): reviewed. MRI BRAIN W WO CONTRAST Result Date: 08/10/2023 IMPRESSION: 1. 21 x 25 x 25 mm left posterior frontal/parietal lobe intraparenchymal hemorrhage, with associated mass-effect. 2. Focal lesion with associated susceptibility and minimal enhancement anterior to hemorrhage, nonspecific in etiology. 3. 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 4. 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 5. Patchy/confluent nonspecific cerebral white matter T2/FLAIR hyperintense and nonenhancing foci, compatible with moderate microvascular ischemic changes, greater in extent/number for stated age. This case was submitted to the Radiology Backup Administrative Coordinator (DIRECTOR OF CATH LAB): Significant Abnormal Result. CT HEAD/BRAIN WO CONTRAST Result Date: 08/10/2023 IMPRESSION: Early subacute appearing left frontoparietal intraparenchymal hematoma, grossly matching the size described in the report from CTA head/neck performed at an outside institution on 08/10/2023. Similar degree of previously described surrounding edema and mass effect with approximately 1-2mm rightward midline shift and flattening of the left lateral ventricle. Potential focus of subarachnoid hemorrhage along the left parieto-occipital fissure sulcus, likely reflecting redistribution of pre-existing blood from the intraparenchymal hematoma. Correlation with prior external imaging is advised to assess for stability of this finding. No other areas suspicious for recent intracranial he morrhage or acute territorial infarction. Small chronic infarctions involving the right parietal lobe and bilateral cerebellar hemispheres. Chronic microvascular white matter disease and parenchymal volume loss. MR imaging is often more sensitive in the detection of acute or subtle ischemic, inflammatory or neoplastic lesions, and can be considered if there are persistent or unexplained neurologic findings. IMPRESSION: 83F with history of afib on eliquis, HF, HTN, breast CA, and recent TIAs [facility]PH, NIHSS 2. Etiology of IPH unclear but given a number ofchronic bleeds seen on SWI, recurrent history of TIA, age, and chronic conditions, could have element of CAA vs metastasis from known malignancy. Unlikely to be from hypertension given BP seems well controlled. MRI showing IPH but age of lesion unclear as lesion is heterogenous and extensive white matter changes with diffuse cortical and subcortical infarcts. Can consider MRI spec scan when more stable for further characterization of bleed. RECOMMENDATIONS/PLAN: -S/p MRI brain with contrast. Will need repeat MRI in 3 months for re-evaluation -Frequent neurochecks -Continue pravastatin 80mg -BP goal <140 -Hold anticoagulation for at least 2 weeks and repeat CTH at that time for restarting AC -Keppra per NSGY -Sodium goal of 145-155 Stroke Checklist: DVT Prophylaxis: receiving mechanical, but chemical contraindicated, reason: IPH Antithrombotic Therapy: contraindicated, reason: IPH Atrial Fibrillation or Flutter: yes - anticoagulation currently contraindicated, reason: IPH Statin: receiving - high intensity Stroke Education: personal risk factors for stroke Rehab Therapy Plan: O.T., P.T., and Speech Additional Stroke Care (or Document Contraindication) as Follows: Bedside dysphagia screen; if patient does not pass, maintain NPO and order formal speech evaluation Lab work including CBC, CMP, PT/INR, aPTT Markers of cardiac ischemia (eg. Troponin) and obtain EKG Lipid panel and initiate high intensity statin therapy for LDL goal less than 70 Control blood sugar for goal less than 180, and preferably less than 140, and check HbA1c DVT prophylaxis P.T./O.T./Speech/Rehabilitation consultations Stroke education (contact stroke nurse if necessary) Patient Has Decision Making Capacity: yes Code Status: Full Code The patient was examined and was discussed with Dr. Moi Elena. Associated attestation - Moi Elena MD - 08/11/2023 2:20 PM EDT I saw and evaluated the patient today. I have reviewed the trainee note and agree. Seen walking the halls. Of note there was a possible cavernoma in/close to the region of change. Based on MRI would suspect that this was a slower process and hence the appearance fits more with a resolving hematoma. Hold anticoagulation for now. * Soniya Torres MD - 08/11/2023 8:02 AM EDT CCM - PROGRESS NOTE [facility]-[address] [address] Name: Sofya Perez Location: [facility] [id number] Date: 08/11/2023 Time: 8:02 AM DATE OF ADMISSION: 08/10/2023 Hospital Day: 1 PATIENT DESCRIPTION: Patient is a 83-year-old female with past medical history of breast cancer, lymphoma, pancreatic neuroendocrine tumor, asplenic, paroxysmal AFib on Eliquis, hypertension, who presents as a transfer from [facility] for left frontal parietal IPH with ICH score 1. Patient reports left lower extremity numbness and weakness for about 1 week, on and off. Last night the numbness and weakness returned and was persistent and then started feeling in her right lower extremity. She alerted her [facility] and was taken to [facility]. Imaging at [facility] showed: 08/10/[address] head without contrast: 2.6 cm diameter IPH in the left frontal lobe with surrounding vasogenic edema. Chronic periventricular ischemic demyelination changesseen due to small-vessel disease. 2 mm midline shift to the right. Mild mass effect seen over the left lateral ventricle. 0600 CTA head/Neck: No occlusion, hemodynamically significant stenosis, or dissection of the major cervical arteries. 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 Patient denies subjective fevers, chills, nausea, vomiting, BM changes, chest pain, abdominal pain,heart palpitations, SOB, headache, dizziness. Patient transferred to [facility] for IPH management with Neurosurgery. SUBJECTIVE: Overnight patient had her MRI done. Patient seen and evaluated at bedside this morning. Is awake, alert, oriented. States that she is tired. Has no complaints. Able to move all extremities without issues. Patient denies subjective fevers, chills, nausea, vomiting, BM changes, chest pain, abdominal pain,heart palpitations, SOB, headache, vision changes, numbness/tingling, dizziness. CONSTITUTIONAL DATA: BP: 136 mmHg/88 mmHg (08/11/23699) Pulse: 76 (08/11/23699) Temp: 36.5 C (08/11/23599) Temp Summary: Temp Min: 36.3 C (97.3 F) Max: 36.7 C (98.1 F) SpO2: 97 % (08/11/23699) O2 flow rate: Supplemental O2 Delivery: Room Air, None (08/11/23699) Intake/Output Summary (Last 24 hours) at 08/11/2023801 Last data filed at 08/11/2023 06 Gross per 24 hour Intake 438.33 ml Output 460 ml Net -21.67 ml PHYSICAL EXAM: General: Elderly female, Well developed, well nourished. Head: Normocephalic, atraumatic. Eyes: PERRL, EOM intact, conjunctiva and sclera clear, without nystagmus, lids normal. Ears: grossly normal hearing. Mouth: MMM. Neck: No JVD, trachea midline. Chest: Grossly normal appearance. Lungs: Clear bilaterally with normal respiratory effort. Heart: Irregular rate and rhythm, normal S1, S2. Abdomen: Soft, non-tender, normal bowel sounds. Extremities: No clubbing, no cyanosis, no edema. Neuro: No focal deficits, cranial nerves II-XII grossly intact, equal strength in all extremities. Pulses: Pulses normal in all extremities. Skin: Warm, well perfused. Psych: Alert and oriented to time, person, place. LABORATORY VALUES: reviewed Lab results within last 7 days (see chart for full results) Units 08/10/23 1413 08/10/23 1011 HGB g/dL 12.8 12.5 HCT % 39.1 38.3 WBC K/uL 4.37 4.72 PLT K/uL 251 270 Lab results within last 7 days (see chart for full results) Units 08/11/23 0424 Sodium mmol/L 140 Potassium mmol/L 4.3 Chloride mmol/L 104 CO2 mmol/L 29 BUN mg/dL 21* Creatinine mg/dL 0.9 CULTURES: Recent Cultures (2 Weeks) 12/02/2022 04/13/2022 1:22 PM 3:42 PM QUANT URINE CULTURE GROWTH No significant growth No significant growth RADIOGRAPHIC STUDIES: reviewed MRI BRAIN W WO CONTRAST Result Date: 08/10/2023 IMPRESSION: 1. 21 x 25 x 25 mm left posterior frontal/parietal lobe intraparenchymal hemorrhage, with associated mass-effect. 2. Focal lesion with associated susceptibility and minimal enhancement anterior to hemorrhage, nonspecific in etiology. 3. 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 4. 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 5. Patchy/confluent nonspecific cerebral white matter T2/FLAIR hyperintense and nonenhancing foci, compatible with moderate microvascular ischemic changes, greater in extent/number for stated age. This case was submitted to the Radiology Backup Administrative Coordinator (DIRECTOR OF CATH LAB): Significant Abnormal Result. CT HEAD/BRAIN WO CONTRAST Result Date: 08/10/2023 IMPRESSION: Early subacute appearing left frontoparietal intraparenchymal hematoma, grossly matching the size described in the report from CTA head/neck performed at an outside institution on 08/10/2023. Similar degree of previously described surrounding edema and mass effect with approximately 1-2mm rightward midline shift and flattening of the left lateral ventricle. Potential focus of subarachnoid hemorrhage along the left parieto-occipital fissure sulcus, likely reflecting redistribution of pre-existing blood from the intraparenchymal hematoma. Correlation with prior external imaging is advised to assess for stability of this finding. No other areas suspicious for recent intracranial he morrhage or acute territorial infarction. Small chronic infarctions involving the right parietal lobe and bilateral cerebellar hemispheres. Chronic microvascular white matter disease and parenchymal volume loss. MR imaging is often more sensitive in the detection of acute or subtle ischemic, inflammatory or neoplastic lesions, and can be considered if there are persistent or unexplained neurologic findings. Active Problems: Abnormal CT of the head (POA: Unknown) Right-sided sensory deficit present (POA: Unknown) Chronic anticoagulation (POA: Unknown) POA = Present On Admission SYSTEM BASED PLAN: CRITICAL CARE SYSTEM REVIEW & ASSESSMENT/PLAN: NEURO: # Left frontoparietal IPH, ICH score 1 with brain compression # LLE numbness and weakness Analgesia: None Sedation: None Neurosurgery following, recommendations noted Neurology consulted, recommendations pending Q.4 hour neuro checks MRI brain with and without contrast noted SBP less than 140 Keppra 500 x 7 days (ends 08/15) PEL[employer]ER carbidopa-levodopa NSGY signed off. Recommend 2 week outpt f/up with CT head. Patient will also need 3 month MRI follow up. Eunatremia PULMONARY / RESPIRATORY: # pulmonary hypertension Goal SpO2 greater than 92% CARDIAC / VASCULAR: # paroxysmal atrial fibrillation, SVR # hypertension # hyperlipidemia SBP goal less than 140 Maintain map goal greater than 65 Heart rate goal less than 110 Hold PELOTA MAKER apixaban and ASA 81 --will be resumed as per neurology [employer]OTA [employer]ER digoxin and Toprol-XL PELOTA [employer]KER pravastatin GI / HEPATOBILIARY: No acute issues. Diet: regular GI Ppx: N/a Bowel Regimen: Senna twice daily, docusate twice daily Last BM: PELOTA MAKER RENAL / METABOLIC / FLUIDS: No acute issues. Labs ordered Monitor IOs/Electrolytes, replete as needed INFECTIOUS DISEASES: No acute issues. ENDOCRINE: No acute issues. [facility] BGL goals of 140-180 mg/dl HEMATOLOGIC: # breast cancer DVT PPX: SCDs only We will hold [employer]ELOTA MAKER Eliquis [employer]ELOTA [employer]ER anastrozole MUSCULOSLETAL / DERM: PT/OT as able DEVICES: Peripheral Line Right Antecubital 18 Gauge (Active) Number of days: 1 Peripheral Line Lower;Right 22 Gauge (Active) Number of days: 1 GLOBAL ISSUES: DVT Prophylaxis: chemoprophylaxis with pneumatic compression devices Stress Ulcer Prophylaxis: not indicated Glycemic Control: controlled - not in protocol Central Line Necessity Reviewed: N/A Hogan: N/A Disposition: transfer to floor Patient's decisional capacity: has capacity to make decisions Communication with Patient/Family: I spoke with patient's daughter. Discussed patient's diagnosis and current care plan. Family was given opportunity to ask all questions and express concerns. Questions and concerns were addressed. Goals of Care: ok for transfer to stroke neuro floors. Care plan discussed with attending physician DO Soniya Lind MD [facility] Fellow 08/11/2023 8:02 AM Please excuse any unintentional grammatical and syntactical errors as voice dictation was used to create this note. This should not deter from the intended meaning and clinical context. Please reach out should any clarification be needed. Thank you. Associated attestation - Fior Hudson DO - 08/11/2023 9:33 PM EDT I saw and evaluated the patient today. I have reviewed the trainee note and agree. Patient is an 83 yo with history of breast cancer, lymphoma, and pancreatic neuroendocrine tumor, asplenia, atrial fibrillation on Eliquis and bASA [employer] presenting as a transfer from [facility] for L frontoparietal IPH with ICH score of 1. Overnight MRI showing known IPH with a focal lesion with associated SWI changes anterior to hemorrhage-- etiology unclear as well as a L parietal cavernous malformation. No underlying mass lesion. - BP < 140 - Repeat MRI brain in 3 months - Nsgy follow up as outpatient in 2 weeks with CTH prior. If stable, plan to resume Eliquis at thattime. I spent a total of 45 minutes coordinating, documenting, and providing care for this patient excluding time spent in the performance of separately billed services. * Jason Yang MD - 08/11/2023 7:15 AM EDT NEUROLOGICAL SURGERY PROGRESS NOTE [facility]-[address] [address] Name: Sofya Perez Location: [facility] [id number] Date: 08/11/2023 Time: 7:15 AM SUBJECTIVE: NAEO. OBJECTIVE: Most recent vital signs: BP: 144 mmHg/93 mmHg (08/11/23599) Pulse: 87 (08/11/23599) Temp: 36.5 C (08/11/23599) Temp Summary: Temp Min: 36.3 C (97.3 F) Max: 36.7 C (98.1 F) SpO2: 98 % (08/11/23599) O2 flow rate: Supplemental O2 Delivery: Room Air, None (08/11/23599) Vital signs over last 24 hours: Systolic BP: Most Recent Systolic BP Av.5 mmHg Min: 91 mmHg Max: 145 mmHg Temperature: Most Recent Temperature Av.5 C Min: 36.28 C Max: 36.72 C Pulse: Pulse Avg: Pulse Av.1 Min: 64 Max: 87 Respirations: Resp Av.3 Min: 11 Max: 24 SpO2: SpO2 Av.3 % Min: 96 % Max: 100 % SpO2: SpO2 Av.3 % Min: 96 % Max: 100 % FiO2%: No data recorded ICP: No data found.CPP (adult): No data found.Intake Input/Output: (last 24 hours) Intake/Output Summary (Last 24 hours) at 08/11/2023 0715 Last data filed at 08/11/2023 0600 Gross per 24 hour Intake 438.33 ml Output 460 ml Net -21.67 ml Neurologic Examination Awake, alert, oriented to person, place, time PERRL EOMI No facial droop No pronator drift SHAHID to command RUE 5/5 LUE 5/5 RLE 5/5 LLE 5/5 Sensation grossly intact except LLE numbness in ankle/foot LABS: Blood count: Lab Results Component Value Date/Time WBC 4.37 08/10/2023 02:13 PM WBC 4.71 08/14/2019 08:53 AM HGB 12.8 08/10/2023 02:13 PM HGB 12.4 07/29/2022 12:00 AM HGB 13.6 08/14/2019 08:53 AM HCT 39.1 08/10/2023 02:13 PM HCT 42.4 08/14/2019 08:53 AM PLT 251 08/10/2023 02:13 PM PLT 259 08/14/2019 08:53 AM Coagulation studies: Lab Results Component Value Date/Time INR 1.2 08/10/2023 10:11 AM Chemistry: Lab Results Component Value Date/Time BUN 21 (H) 08/11/2023 04:24 AM BUN 17 08/14/2019 08:53 AM CREAT 0.9 08/11/2023 04:24 AM CREAT 0.96 07/05/2023 12:00 AM CREAT 1.2 (H) 08/14/2019 08:53 AM GFRESTIMATED 43.3 (L) 08/14/2019 08:53 AM NA 140 08/11/2023 04:24 AM NA 144 08/14/2019 08:53 AM POTASSIUM 4.3 08/11/2023 04:24 AM POTASSIUM 4.2 07/05/2023 12:00 AM POTASSIUM 4.9 08/14/2019 08:53 AM CO2 29 08/11/2023 04:24 AM CO2 31 08/14/2019 08:53 AM Imaging studies: MRI brain read as subtle enhancement/susceptibility anterior to lesion per radiology Problem list: Active Problems: Abnormal CT of the head Right-sided sensory deficit present Chronic anticoagulation Resolved Problems: * No resolved hospital problems. * CLINICAL HISTORY AND PLAN: Sofya Perez is a 83 year old female w/ a PMH significant for breast cancer, lymphoma, pancreatic neuroendocrine tumor, asplenia, a-fib and DVT (on eliquis and bASA), HTN, HF, and LEFT hip replacment who presents as a transfer from [facility] for LEFT frontoparietal IPH, ICH score 1, SBP 130sat presentation. Can consider CAA or underlying lesion. Close neurochecks goal INR < 1.4 Goal SBP < 140 Hold Ap/Ac x14 days Keppra 500 BID x7 days Ok for DVT chemo ppx Ok for regular diet Neurology consulted; appreciate recs Discussed with Dr. Sanders. Associated attestation - Gume Sanders MD - 08/11/2023 10:02 AM EDT I saw and evaluated the patient today. I have reviewed the trainee note and agree. Left frontal intracerebral hemorrhage in the setting of anticoagulation use for atrial fibrillation. MRI is negativefor underlying mass lesion. She will need to follow-up with me in clinic in 2 weeks with a head CT to evaluate for restarting her Eliquis at that time. We will also plan to obtain an MRI 3 months after the hemorrhage to allow for further examination of the brain after the hemorrhage has resolved. documented in this encounter H&P Notes * Soniya Torres MD - 08/10/2023 1:29 PM EDT HISTORY & PHYSICAL EXAMINATION - Critical Care Medicine [address] [address] Name: Sofya Perez Location: [facility] [id number] Date: 08/10/2023 Time: 1:30 PM DATE OF ADMISSION: 08/10/2023 PRESENTING PROBLEM: IPH HPI: 83-year-old female with past medical history of breast cancer, lymphoma, pancreatic neuroendocrine tumor, asplenic, paroxysmal AFib on Eliquis, hypertension, who presents as a transfer from [facility] for left frontal parietal IPH with ICH score 1. Patient reports left lower extremity numbness and weakness for about 1 week, on and off. Last night the numbness and weakness returned and was persistent and then started feeling in her right lower extremity. She alerted her [facility] and was taken to [facility]. Imaging at [facility] showed: 08/10/[address] head without contrast: 2.6 cm diameter IPH in the left frontal lobe with surrounding vasogenic edema. Chronic periventricular ischemic demyelination changesseen due to small-vessel disease. 2 mm midline shift to the right. Mild mass effect seen over the left lateral ventricle. 0600 CTA head/Neck: No occlusion, hemodynamically significant stenosis, or dissection of the major cervical arteries. 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 Patient denies subjective fevers, chills, nausea, vomiting, BM changes, chest pain, abdominal pain,heart palpitations, SOB, headache, dizziness. Patient transferred to [facility] for IPH management with Neurosurgery. 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 lymphoma Paroxysmal atrial fibrillation (HCC) 05/02/2019 S/P splenectomy 08/16/2019 Sleep apnea, obstructive Thyroid nodule 12/27/2018 non-specific thyroid nodule on right lobe measuring 2.8x1.6x1.7cm on CT, pt states bx negative. PAST SURGICAL HISTORY: Past Surgical History: Procedure Laterality Date BREAST BIOPSY Right 2019 Malignant BX LYMPH NODE DEEP AXIL Right 04/22/2020 BIOPSY LYMPH NODE DEEP AXILLARY OPEN performed by Morena Matthew MD at [facility] DENTAL SURGERY PROCEDURE NEC IDENTIFY SENTINEL NODE, RADIOACTIVE TRACER Right 04/22/2020 INJECTION PROCEDURE FOR IDENTIFICATION SENTINEL NODE performed by Morena Matthew MD at [facility] MASTECTOMY, PARTIAL Right 04/22/2020 MASTECTOMY PARTIAL performed by Morena Matthew MD at [facility] PROCEDURE - GENERAL Left 03/11/2021 inner,lower left breast punch biopsy by Dr Morena Matthew REMOVAL OF PAROTID GLAND/TUMOR Left 01/28/2019 REMOVAL OF TONSILS, AGE 12+ TOTAL HIP REPLACEMENT & PROSTHESIS Bilateral L 2007, R 2008 FAMILY HISTORY: Family History Problem Relation Age of Onset Other (AD) Mother Cancer Father renal, prostate Hypertension Father Cancer Sister AML? Arthritis Brother Hypertension Brother Other (HLD) Son SOCIAL HISTORY: Social History Tobacco Use Smoking status: Never Smokeless tobacco: Never Vaping Use Vaping Use: Never used Substance Use Topics Alcohol use: No Drug use: No PRIOR TO ADMISSION MEDS: No outpatient medications have been marked as taking for the 08/10/23 encounter (Hospital Encounter). ALLERGIES: Ezetimibe and Chlorpheniramine ROS: PER HPI ABOVE. PHYSICAL EXAMINATION: Most Recent Vital Signs: BP: 128 mmHg/81 mmHg (08/10/23 1300) Pulse: 74 (08/10/23 1300) Temp: 36.5 C (08/10/23 1200) Temp Summary: Temp Min: 36.4 C (97.5 F) Max: 36.5 C (97.7 F) SpO2: 97 % (08/10/23 1300) O2 flow rate: Supplemental O2 Delivery: Room Air, None (08/10/23 1400) General: Elderly female, Well developed, well nourished. Head: Normocephalic, atraumatic. Eyes: PERRL, EOM intact, conjunctiva and sclera clear, without nystagmus, lids normal. Ears: grossly normal hearing. Mouth: MMM. Neck: No JVD, trachea midline. Chest: Grossly normal appearance. Lungs: Clear bilaterally with normal respiratory effort. Heart: Irregular rate and rhythm, normal S1, S2. Abdomen: Soft, non-tender, normal bowel sounds. Extremities: No clubbing, no cyanosis, no edema. Neuro: No focal deficits, cranial nerves II-XII grossly intact, equal strength in all extremities. Pulses: Pulses normal in all extremities. Skin: Warm, well perfused. Psych: Alert and oriented to time, person, place. LABORATORY VALUES: reviewed Lab results within last 7 days (see chart for full results) Units 08/10/23 1011 HGB g/dL 12.5 HCT % 38.3 WBC K/uL 4.72 PLT K/uL 270 RADIOGRAPHIC STUDIES: reviewed [facility]: 08/10/[address] head without contrast: 2.6 cm diameter IPH in the left frontal lobe with surrounding vasogenic edema. Chronic periventricular ischemic demyelination changes seen due to small-vessel disease. 2 mm midline shift to the right. Mild mass effect seen over the left lateral ventricle. 0600 CTA head/Neck: No occlusion, hemodynamically significant stenosis, or dissection of the major cervical arteries. 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 Patient is being admitted for: Left frontal lobe intraparenchymal hemorrhage SYSTEM BASED PLAN: CRITICAL CARE SYSTEM REVIEW & ASSESSMENT/PLAN: NEURO: # Left frontoparietal IPH, ICH score 1 # LLE numbness and weakness Analgesia: None Sedation: None Neurosurgery following, recommendations noted Neurology consulted, recommendations pending Q.[address] head [address] head is ordered and pending MRI brain with and without contrast ordered SBP less than 140 Keppra 500 x 7 days PELOTA MAKER carbidopa-levodopa PULMONARY / RESPIRATORY: # pulmonary hypertension Goal SpO2 greater than 92% CARDIAC / VASCULAR: # paroxysmal atrial fibrillation, SVR # hypertension # hyperlipidemia SBP goal less than 140 Maintain map goal greater than 65 Heart rate goal less than 110 Hold PELOTA MAKER apixaban and ASA 81 PELOTA MAKER digoxin and Toprol-XL PELOTA MAKER pravastatin GI / HEPATOBILIARY: No acute issues. Diet: NPO pending CT head GI Ppx: N/a Bowel Regimen: Senna twice daily, docusate twice daily Last BM: PELOTA MAKER RENAL / METABOLIC / FLUIDS: No acute issues. Labs ordered Monitor IOs/Electrolytes, replete as needed INFECTIOUS DISEASES: No acute issues. ENDOCRINE: No acute issues. [facility] BGL goals of 140-180 mg/dl HEMATOLOGIC: # breast cancer DVT PPX: SCDs only We will PELOTA MAKER Eliquis PELOTA MAKER anastrozole MUSCULOSLETAL / DERM: PT/OT as able DEVICES: Peripheral Line Right Antecubital 18 Gauge (Active) Number of days: 0 GLOBAL ISSUES: DVT Prophylaxis: pneumatic compression devices alone due to chemoprophylaxis contraindication Stress Ulcer Prophylaxis: not indicated Glycemic Control: controlled - not in protocol Central Line Necessity Reviewed: N/A Hogan: N/A Disposition: keep in ICU Patient's decisional capacity: has capacity to make decisions Communication with Patient/Family: No meeting held. Goals of Care: continue IPH management. Care plan discussed with attending physician Dr. Hudson. Soniya Torres MD CCM Fellow 08/10/2023 1:30 PM Please excuse any unintentional grammatical and syntactical errors as voice dictation was used to create this note. This should not deter from the intended meaning and clinical context. Please reach out should any clarification be needed. Thank you. Associated attestation - Fior Hudson DO - 08/11/2023 9:25 PM EDT I saw and evaluated the patient 08/10/2023. I have reviewed the trainee note and agree. Patient is an 83 yo with history of breast ca, lymphoma, pancreatic neuroendocrine tumor, asplenia,pAF on AC, and HTN transferred from [facility] for L frontoparietal IPH with ICH score of 1. Admitted to NSICU for close neuromonitoring. -BP goal < 140 -Holding PELOTA MAKER apixaban and ASA 81mg -Rate control with PELOTA MAKER digoxin and metoprolol -MRI brain w/wo contrast pending -Repeat CTH obtained and on personal review with stable appearing hemorrhage. I have provided critical care diagnostic services for neurologic failure and therapeutic services with neurological monitoring and treatment, application of advanced monitoring technologies for this patient on the date referenced above. Time devoted to patient care services described in this note equal: 35 minutes total critical care time exclusive of time spent performing procedures or time spent by another provider or resident. documented in this encounter Procedure Notes * Chuck Mcnally DO - 08/10/2023 10:07 AM EDTAssociated Order(s): EKG REASON FOR STUDY: Stroke (HCC) CONCLUSIONS: Atrial fibrillation Ventricular Rate: 82 QRS Duration: 80 QT/QTc: 370/432 ms P-R-T Deane: 0 : -11 : -27 degrees documented in this encounter Consult Notes * Lino Gilliam OTR/Verito - 08/11/2023 1:37 PM EDTAssociated Order(s): ADULT OCCUPATIONAL THERAPY CONSULT IP GENERAL EVALUATION - Occupational Therapy [address] [address] Name: Sofya Perez Location: [facility] [id number] Date: 08/11/2023 Time: 1:38 PM Sofya Perez is a 83 year old female. Patient Status: Inpatient Insurance: Payor: MEDICARE Plan: MEDICARE A AND B Product Type: *No Product type* Payor: [facility] ([facility]) Plan: [facility] [employer] Product Type: *No Product type* Patient Seen: at bedside, nursing cleared patient for therapy Patient Identified By: Name, ID Band and Date Diagnosis: IPH (08/11/231207) Status of treatment: Evaluation completed (08/11/231207) Orders: OT evaluation and treatment;OT OOB (08/11/231207) Weight Bearing Status: Weight bearing as tolerated (08/11/231207) Precautions: Alarms;Falls;Safety (08/11/231207) Total Treatment Time: 38 (04/12/24 1208) Past Medical History: 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 lymphoma Paroxysmal atrial fibrillation (HCC) 05/02/2019 S/P splenectomy 08/16/2019 Sleep apnea, obstructive Thyroid nodule 12/27/2018 non-specific thyroid nodule on right lobe measuring 2.8x1.6x1.7cm on CT, pt states bx negative. Past Surgical History: Past Surgical History: Procedure Laterality Date BREAST BIOPSY Right 2019 Malignant BX LYMPH NODE DEEP AXIL Right 04/22/2020 BIOPSY LYMPH NODE DEEP AXILLARY OPEN performed by Morena Matthew MD at OR [facility] DENTAL SURGERY PROCEDURE NEC IDENTIFY SENTINEL NODE, RADIOACTIVE TRACER Right 04/22/2020 INJECTION PROCEDURE FOR IDENTIFICATION SENTINEL NODE performed by Morena Matthew MD at [facility] MASTECTOMY, PARTIAL Right 04/22/2020 MASTECTOMY PARTIAL performed by Morena Matthew MD at [facility] PROCEDURE - GENERAL Left 03/11/2021 inner,lower left breast punch biopsy by Dr Morena Matthew REMOVAL OF PAROTID GLAND/TUMOR Left 01/28/2019 REMOVAL OF TONSILS, AGE 12+ TOTAL HIP REPLACEMENT & PROSTHESIS Bilateral L 2007, R 2008 Social History/Disposition Lives with: Family;Alone (has an apartment right off of her daughter's house) (08/11/23 1246) Assistance available: Yes (08/11/23 1246) Dwelling type: Multi-story home (08/11/23 1246) Entry steps: None (08/11/23 1246) Inside steps: (7) (08/11/23 1246) Bedroom location: 1st floor (08/11/23 1246) Bath location: 1st floor full bath (08/11/23 1246) Prior Level of Function Reported by: Patient (08/11/23 1208) Ambulation: Ambulatory with device (08/11/23 1208) Ambulatory Device: Rolling walker (08/11/23 1208) Grooming: Independent (08/11/23 1208) Bathing: Independent (08/11/23 1208) Dressing: Independent (08/11/231207) Feeding: Independent (08/11/231207) Toileting: Independent (08/11/231207) Meal Prep: Dependent (08/11/231207) Driving: No (08/11/231207) Durable Medical Equipment at home: Shower chair;Rolling walker (08/11/231207) Subjective: Patient sitting in chair upon arrival. Agreeable to OT session Pain: No complaints of pain Observations Consciousness: Alert (08/11/231207) Orientation: Person;Place;Time (08/11/231207) Psychosocial: Patient can communicate basic needs;Patient can converse in a social setting (08/11/231207) Visual Deficits: (visual tracking intact however with mobility appears to have R side inattention) (08/11/231207) Sitting posture: Forward head;Rounded shoulders (08/11/231207) Standing posture: Forward head;Rounded shoulders (08/11/231207) Safety awareness: Needs cueing supervision. (08/11/231207) Other Findings Endurance: Fair (08/11/231207) Light touch sensation: LUE;RUE;Intact (08/11/231207) Coordination: LUE;RUE;Intact (08/11/231207) Current Functional Status: Bilateral Upper Extremity Range of Motion: WFL (08/11/231207) Strength Assessment: Deficits noted (08/11/231207) LUE: Shoulder;Elbow;Grasp;4-/5 (08/11/231207) RUE: Shoulder;Elbow;4-/5;Grasp;3+/5 (08/11/231207) Self Care Feeding: Supervision (Please comment) (08/11/231207) Toileting: Dependent (natanael-care and brief mgmt) (08/11/231207) Dressing Upper Body: Moderate Assistance (gown change) (08/11/231207) Lower Body: Maximal Assistance (-Dep to don socks) (08/11/231207) Functional Ambulation Assistive Device: Rolling walker (08/11/231207) Distance in feet:: 70 (08/11/231207) Level of Assistance: Minimal Assistance (08/11/231207) OT Transfers Sit-Stand: Moderate Assistance (x2) (08/11/231207) Stand-Sit: Minimal Assistance (08/11/231207) Balance Sit (Static): Fair (08/11/231207) Sit (Dynamic): Fair (-) (08/11/231207) Stand (Static): Fair (-) (08/11/231207) Stand (Dynamic): Poor (+) (08/11/231207) Alarm Status Patient positioned in: Chair (08/11/231207) With: Pressure pad alarm intact and functioning and call courtney in reach (08/11/231207) Following session patient seated OOB in chair with chair alarm activated. Chair alarm (did not havecord to plug into call courtney system and/or room did not have port to plug cord into call courtney system). Patient's nurse was made aware. Patient and Family Goals: to get well and to return home Patient Education Education Topic: Role of OT;Plan of care goals (08/11/231207) Review of Precautions: Safety;Fall (08/11/231207) Method of Education: Verbalized to patient (08/11/231207) Education Provided to: Patient (08/11/231207) Response to Education: Receptive and agreeable to education (08/11/231207) Barriers to learning: Medical status (08/11/231207) Preferred learning method: Combination (08/11/231207) Treatment Provided: Self Custodial Management Trainin minutes Therapeutic Activity: 12 minutes Evaluation High Complexity 14 minutes - [id number]: Patient was cooperative and pleasant during treatment session. High complexity evaluation performed and 5 or more activity limitations were identified, including ADL deficit, functional mobility deficit, bed mobility deficit, decreased strength, decreased endurance, and impaired balance. The patient does have comorbidities, including history of breast cancer, lymphoma, hip replacement and current ICU status. Significant modification of the functional task was necessary to complete the evaluation. Deficits Requiring O.T. Treatment: Deficits requiring O.T. treatment needs: ADL/self-care;Balance;Endurance;Functional mobility;Safety;Upper extremity strength;Weakness;Visual deficits (08/11/231207) Assessment: Patient was admitted to [facility] on 08/10/23 for ICH. Patient was cooperative and agreeable to participate in OT evaluation this date. Prior to admission patient was independent with most ADLsand used a walker for mobility at baseline. She states she lives below her daughter in an apartmentwhere she has no steps to enter and everything is on one floor. She states there are 7 steps to getup to her daughters living area, however she does not go up there anymore. During session patient required modA for UB/LB dressing tasks 2/2 decreased functional reach. Patient does require additional time to complete tasks. Sit/stand transfer completed with modA x2 from chair and upon standing pt noted to be incontinent of urine. She tolerated standing in place with walker for BUE support but was Dep for toileting/hygiene/brief mgmt. After brief seated rest break, pt engaged in mobility of 70ft with walker and Leonila. Requires cues and physical assistance for turning/navigating walker and ambulates slowly with narrow stance. Difficulty noted with turns and inattention to R noted with mobility. Cues needed to avoid barriers. Following session pt seated in chair with all needs met. Educated on additional therapy following hospital stay in which patient seems agreeable to. Currently, patients presents with deficits in ADLs and functional mobility, as well as decreased strength, decreased e ndurance, decreased balance and safety. Patient would benefit from continued OT services to improveindependence in ADLs and functional mobility. When medically appropriate, Please consider post-acute care services which may include home health, [place] [facility], outpatient therapy or inpatient rehabilitation. The level of care will be determined in collaboration with patient, family/caregiver andcare team members. Goals: Demonstrates Self-Care at: UB Bathing: supervision LB Bathing: Leonila UB Dressing: supervision to don gown/robe/shirt LB Dressing: Leonila to don socks/shoes/pants Grooming: supervision Toileting: Leonila Demonstrates Bed Mobility at: Supine to sit: CGA Sit to supine: CGA Rolling left/right: CGA Demonstrates balance at: Sitting balance: Fair Standing balance: Fair- Transfers: Sit to Stand: CGA Stand to Sit: CGA Toilet: CGA Functional Ambulation at CGA with AD PRN Increase Strength of B UEs 1/2 muscle grade Goal Time Frame: 10 visits Treatment Plan: Safety, Bed mobility training, Functional Ambulation, Transfer Training, Upper extremity strengthening, Balance activities, ADL training and Endurance Anticipated Frequency (on eval): 3 to 5 times per week (08/11/231207) AM-PAC Help From Another Person Eating Meals: A little (08/11/231207) Help From Another Person Taking Care of Personal Grooming: A little (08/11/231207) Help From Another Person To Put On/Take Off Upper Body Clothing: A lot (08/11/231207) Help From Another Person To Put On/Take Off Lower Body Clothing: A lot (08/11/231207) Help From Another Person Toileting: Total (08/11/231207) Help From Another Person Bathing: A lot (08/11/231207) OT AM-PAC Score: 13 (08/11/231207) OT AM-PAC t-Scale Score: 32.03 (08/11/231207) HLM (Highest Level of Mobility) Goal: Level 4 move to chair/commode (08/11/231245) A portion of this AM-PAC assessment not scored based on functional assessment; rather clinical decision making utilized based on current findings and/or prior level of function. Please refer to future AM-PAC calculations of functional ability as they become available. * Chanell Bee, PT - 08/11/2023 12:46 PM EDTAssociated Order(s): ADULT PHYSICAL THERAPY CONSULT IP GENERAL EVALUATION - Physical Therapy [address] [address] Name: Sofya Perez Location: [facility] A447/A Date: 08/11/2023 Time: 1245 Sofya Perez is a/an 83 year old female. Patient Status: Inpatient Insurance: Payor: MEDICARE Plan: MEDICARE A AND B Product Type: *No Product type* Payor: [facility] ([facility]) Plan: [facility] [employer] Product Type: *No Product type* Patient Seen: at bedside, nursing cleared patient for therapy Patient Identified By: Name, ID Band and Date Diagnosis: IPH (08/11/231245) Status of treatment: Evaluation completed (08/11/231245) Orders: PT evaluation and treatment;OOB (08/11/231245) Weight Bearing Status: Weight bearing as tolerated (08/11/231245) Precautions: Alarms;Falls;Safety (08/11/231245) Total Treatment Time--free text: 38 (08/11/231245) Past Medical History: 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 lymphoma Paroxysmal atrial fibrillation (HCC) 05/02/2019 S/P splenectomy 08/16/2019 Sleep apnea, obstructive Thyroid nodule 12/27/2018 non-specific thyroid nodule on right lobe measuring 2.8x1.6x1.7cm on CT, pt states bx negative. Past Surgical History: Past Surgical History: Procedure Laterality Date BREAST BIOPSY Right 2019 Malignant BX LYMPH NODE DEEP AXIL Right 04/22/2020 BIOPSY LYMPH NODE DEEP AXILLARY OPEN performed by Morena Matthew MD at OR [facility] DENTAL SURGERY PROCEDURE NEC IDENTIFY SENTINEL NODE, RADIOACTIVE TRACER Right 04/22/2020 INJECTION PROCEDURE FOR IDENTIFICATION SENTINEL NODE performed by Morena Matthew MD at [facility] MASTECTOMY, PARTIAL Right 04/22/2020 MASTECTOMY PARTIAL performed by Morena Matthew MD at [facility] PROCEDURE - GENERAL Left 03/11/2021 inner,lower left breast punch biopsy by Dr Morena Matthew REMOVAL OF PAROTID GLAND/TUMOR Left 01/28/2019 REMOVAL OF TONSILS, AGE 12+ TOTAL HIP REPLACEMENT & PROSTHESIS Bilateral L 2007, R 2008 Subjective: Pt awake in chair, agreeable to PT. Social History/Disposition Lives with: Family;Alone (has an apartment right off of her daughter's house) (08/11/231245) Assistance available: Yes (08/11/231245) Dwelling type: Multi-story home (08/11/231245) Entry steps: None (08/11/231245) Inside steps: (7) (08/11/231245) Bedroom location: 1st floor (08/11/231245) Bath location: 1st floor full bath (08/11/231245) Prior Level of Function Reported by: Patient (08/11/231245) Ambulation: Ambulatory with device (08/11/231245) Ambulatory Device: Rolling walker (08/11/231245) Devices at home: Rolling walker (08/11/231245) Observations Consciousness: Alert (08/11/231245) Orientation: Oriented times 4 (08/11/231245) Psychosocial: Patient can communicate basic needs;Patient can converse in a social setting (08/11/231245) Other Findings: Yes (08/11/231245) Findings: Light touch sensation (08/11/231245) Light Touch Sensation Results: Intact;LLE;RLE (08/11/231245) Sitting Posture: Forward head;Rounded shoulders (08/11/231245) Standing Posture: Forward head;Rounded shoulders (08/11/231245) Pain: No complaints of pain Range of Motion Range of Motion: WFL (08/11/231245) Strength Assessment Strength Assessment: (4/5 B/L LE) (08/11/231245) Transfers Sit-Stand: Moderate Assistance (x2) (08/11/231245) Stand-Sit: Minimal Assistance (08/11/231245) Ambulation: Distance ambulated (feet): 70 ft Assistive Device: Rolling walker Assist: Minimal Assistance Balance Sit (Static): Fair (-) (08/11/231245) Sit (Dynamic): Fair (- to poor+) (08/11/231245) Stand (Static): Fair (- to poor+) (08/11/231245) Stand (Dynamic): Fair (- to poor+) (08/11/231245) Patient and or Family Goal(s): to get well and to return home Patient Education Review of Precautions: Safety;Fall (role of PT) (08/11/231245) Safety Awareness: Patient can communicate basic needs (08/11/231245) Preferred learning method: Combination (08/11/231245) Barriers to learning: Medical Status (08/11/231245) Method of Education: Verbalized to patient;Patient demonstrated task (08/11/231245) Topic of Education: Safety with mobility, Goals/plan of care, Use of assistive device, and Fall prevention Method of Education: Verbal discussion and explanation provided to pt: verbalized understanding andor agreement of this information and demonstrated the exercise and or task Extremity Exercise Standing: (sit to stand transfer training. tolerance to standing upright, upright posture.) (08/11/231245) Treatment Provided: Therapeutic Activities 10 minutes: transfer training Neuromuscular Re-education 8 minutes: balance and postural retraining Tolerance to upright standing, postural correction activities Evaluation High Complexity 20 minutes - 01352: Patient was cooperative during treatment session. High complexity evaluation performed and 3 or more personal factors or comorbidities were identified that will impact plan of care, including history of cancer, ICU status, and current functional mobility status. Patient presents with limitations in strength, bed mobility, transfers, gait, elevations,balance, endurance, and safety, which will impact plan of care. These limitations will be addressedby the goals set for this patient. Alarm Status Patient positioned in: Chair (08/11/231245) With: Pressure pad alarm intact and functioning and call courtney in reach (no cord in NSICU) (246) Treatment Status: Treatment at bedside (08/11/231245) Goals: Demonstrate Bed Mobility with: supervision Demonstrate Sit to/from Stand Transfers with: contact guard Demonstrate Ambulation: modified independent, least restrictive AD, 200 ft Increase Strength of: B/L LE by 1/2-1 muscle grade Increase Balance: dynamic standing balance to fair Increase Safety: of functional mobility Time Frame: 9-10 visits Assessment: Pt is 83 year old female presenting with [facility]. Pt seen on this date for initial evaluation. Prior to admission, pt reports living in apartment that is connected to her daughter's house (nosteps to enter). Pt reports ambulating with rolling walker at baseline. During session, pt was cooperative. Upon initial evaluation, pt was able to perform sit to stand transfers with modA x2 and ambulated 70 ft with Leonila and rolling walker. With ambulation, pt was unsteady with significantly decreased gait speed, step length, and step height. Pt had trouble avoiding obstacles to her right and required manual assistance for proper rolling walker use and to avoid obstacles. Pt worked on sit to stand transfer training from chair with modA x2 to stand and Leonila to sit. Pt was able to maintain stand for >3 minutes with contact guard to Leonila with rolling walker. Following session, pt positioned in chair with alarm and call courtney in reach. Cord not plugged into call courtney system, as this is notavailable in ICU. RN is aware. Pt presents with deficits in strength, endurance, mobility, ambulation, and balance, all of which are currently negatively impacting pt's quality of life. Pt would continue to benefit from skilled PT services while inpatient at hospital to reach established goals and address deficits. Pt is not safe to return home at this time due to current functional mobility status. Pt made aware of this and agreeable to rehab stay following discharge. Please consider post-acute care services which may include home health, [place] [facility], outpatient therapy or inpatient rehabilitation. The level of care will be determined in collaboration with patient, family/caregiver and care team members. All needs met. Deficits requiring P.T. treatment needs: Safety;Mobility;Balance;Weakness;Endurance;Lower extremitystrength (08/11/231245) Equipment Needs: Equipment needs: (TBD) (08/11/231245) Treatment Plan: Bed mobility training, Transfer training, Gait training, Strengthening exercises: B/L LE, Balance activities, and Educate on safety with functional mobility Anticipated Frequency (on eval): 3 to 5 times per week (08/11/231245) AM PAC Score with Stairs: 14 A portion of this AM-PAC assessment not scored based on functional assessment ; rather clinical decision making utilized based on current findings and/or prior level of function. Please refer to future AM-PAC calculations of functional ability as they become available. * Gillian Cardenas MSW - 08/11/2023 12:04 PM EDTAssociated Order(s): CARE MANAGEMENT CONSULT IP Please refer to ancillary tab per CM involvement. Thank you for the consult request. * Jennifer Florentino, [facility]-METAL TECHNICIAN - 08/11/2023 9:30 AM EDTAssociated Order(s): ADULT SPEECH THERAPY CONSULT IP (ACUTE CARE REHAB) COGNITIVE COMMUNICATION ASSESSMENT - Speech-Language Pathology [facility]-[address] [address] Name: Sofya Perez Location: [facility] A447/A Date: 08/11/2023 Time: 9:51 AM Patient Status: Inpatient Insurance: Payor: MEDICARE / Plan: MEDICARE A AND B / Product Type: *No Product type* / Patient Age: [age] year old Referring Physician: Soniya Torres MD Admission Date: 08/10/2023 History: Per Epic review 08/10/23, " 83-year-old female with past medical history of breast cancer,lymphoma, pancreatic neuroendocrine tumor, asplenic, paroxysmal AFib on Eliquis, hypertension, who presents as a transfer from [facility] for left frontal parietal IPH with ICH score 1. Patient reports left lower extremity numbness and weakness for about 1 week, on and off. Last night the numbness and weakness returned and was persistent and then started feeling in her right lower extremity. She alerted her ANAYA and was taken to [facility]. Imaging at [facility] showed: 08/10/[address] head without contrast: 2.6 cm diameter IPH in the left frontal lobe with surrounding vasogenic edema. Chronic periventricular ischemic demyelination changesseen due to small-vessel disease. 2 mm midline shift to the right. Mild mass effect seen over the left lateral ventricle. 0600 CTA head/Neck: No occlusion, hemodynamically significant stenosis, or dissection of the major cervical arteries. 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 Patient denies subjective fevers, chills, nausea, vomiting, BM changes, chest pain, abdominal pain,heart palpitations, SOB, headache, dizziness. 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 lymphoma Paroxysmal atrial fibrillation (HCC) 05/02/2019 S/P splenectomy 08/16/2019 Sleep apnea, obstructive Thyroid nodule 12/27/2018 non-specific thyroid nodule on right lobe measuring 2.8x1.6x1.7cm on CT, pt states bx negative. Past Surgical History: Procedure Laterality Date BREAST BIOPSY Right 2019 Malignant BX LYMPH NODE DEEP AXIL Right 04/22/2020 BIOPSY LYMPH NODE DEEP AXILLARY OPEN performed by Morena Matthew MD at [facility] DENTAL SURGERY PROCEDURE NEC IDENTIFY SENTINEL NODE, RADIOACTIVE TRACER Right 04/22/2020 INJECTION PROCEDURE FOR IDENTIFICATION SENTINEL NODE performed by Morena Matthew MD at [facility] MASTECTOMY, PARTIAL Right 04/22/2020 MASTECTOMY PARTIAL performed by Morena Matthew MD at [facility] PROCEDURE - GENERAL Left 03/11/2021 inner,lower left breast punch biopsy by Dr Morena Matthew REMOVAL OF PAROTID GLAND/TUMOR Left 01/28/2019 REMOVAL OF TONSILS, AGE 12+ TOTAL HIP REPLACEMENT & PROSTHESIS Bilateral L 2007, R 2008 IMAGING: MRI BRAIN 08/10/23: "IMPRESSION: 1. 21 x 25 x 25 mm left posterior frontal/parietal lobe intraparenchymal hemorrhage, with associated mass-effect. 2. Focal lesion with associated susceptibility and minimal enhancement anterior to hemorrhage, nonspecific in etiology. 3. 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 4. 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 5. Patchy/confluent nonspecific cerebral white matter T2/FLAIR hyperintense and nonenhancing foci, compatible with moderate microvascular ischemic changes, greater in extent/number for stated age." Educational History: Did not obtain Prior Functional Level: Reported by Patient Money Management is done by: Pt is currently living in [facility]. Homemaking: Pt is currently living in [facility]. Shopping: Pt is currently living in [facility]. 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 Pt demonstrated functional confrontation and responsive naming. Mild disfluencies in speech when word-finding at the conversational level. Pt indicated speech is different from baseline. Speech observed to be mildly disfluent w/occasional phonemic paraphasic errors. Pt followed commands and responses were grossly appropriate throughout the assessment. Pt demonstrated mild deficits in delayed recall of novel stimuli, which improved w/provision of semantic cue. Mild short term deficits w/in conversation. snf memory appeared functional for conversation. Pt was oriented to all concepts. Mild deficits in verbal and calculation problem-solving, w/limited benefit from min cueing. Pt demonstrated inaccurate spacing and missing numerals on clock drawing. Unclear if r/t visuospatial deficits/organization deficits vs visual impairment (pt reports difficulty w/current glasses). Cognitive-Communication Rehab Potential: Good RECOMMENDATIONS / TREATMENT PLAN: Gnmldh-Diyualcj-Lkfijrjdx-Communication Therapy: Indicated for length of hospital stay Communication Goals: 1) Pt will recall relevant novel stimuli following 3 min delay in 3/5 opportunities when provided visual cueing/other compensatory strategies. 2) Pt will demonstrate improved verbal problem-solving for functional safety tasks in 3/5 opportunities when provided min cueing. 3) Pt will improve fluency of speech via self-correction of paraphasic errors in 4/5 opportunities when provided occasional cueing. ANTICIPATED FREQUENCY (ON EVAL): 1-3 times per week PATIENT/FAMILY EDUCATION: Topic(s): Purpose of Cognitive-Communication Assessment Method of Education: Verbal discussion and explanation provided to pt: verbalized understanding andor agreement of this information Additional Recommendations: If pt should d/c from [facility] prior to METAL TECHNICIAN follow up, recommend continued skilled METAL TECHNICIAN services in d/c setting. Evaluations Results: Speech-Language Skills AUDITORY COMPREHENSION: Yes/No Questions DNT Body Part Identification WFL Right/Left Discrimination: WFL Commands Simple WFL Complex WFL Comprehension Words WFL Sentences WFL Paragraphs DNT Conversation WFL VERBAL EXPRESSION: Naming Responsive WFL Confrontation WFL Repetition DNT Automatic Speech DNT Spontaneous Utterances Words WFL Sentences WFL Conversation WFL Paraphasias/Jargon Present Gestures/Augmentative DNT Perseveration Not present READING COMPREHENSION: Oral: Words Within normal limits Sentences Within normal limits Paragraphs Did not test Comprehension Words Within normal limits Sentences Within normal limits Paragraphs Did not test WRITTEN EXPRESSION: Biographical Information Decreased legibility Copying DNT Spontaneous: Words Impaired legibility Sentences Impaired legibility Narrative DNT SPEECH MECHANISM: Oral Motor WFL Speech Intelligibility Mild disfluencies, largely intelligible Dysarthria Not present Apraxia Oral Not present Verbal Not present LEVEL OF ALERTNESS: alert/focused COGNITIVE-COMMUNICATION SKILLS: ATTENTION/CONCENTRATION: Sustained (1:1 environment) Within normal limits Selective with distractions Within normal limits Alternating between tasks Did not test Divided between tasks Did not test MEMORY: Immediate Memory Within normal limits Short Term Memory: Daily Events/Activities Did not test Novel Information Impaired Delayed memory 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 [employer]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 Memory Within normal limits PROBLEM SOLVING/REASONING: Verbal Problem Solving Impaired Functional Problem Solving: Simple Impaired Complex Did not test Functional Math: Math Calculations Impaired Time Management Within normal limits Money Management Impaired Abstract Reasoning Did not test Deficit Reasoning Did not test Safety Awareness ?Impaired VISUAL PERCEPTION: Spatial Organization Impaired (unclear if r/t pt needing new glasses per report) Distribution of Attention WFL Written Organization Impaired legibility ORIENTATION: Person Within normal limits Place Within normal limits Time Within normal limits Situation Within normal limits EXECUTIVE FUNCTIONS: Initiation WFL Organization WFL Planning/Decision Making DNT Self Monitoring WFL Self Correction WFL BEHAVIORAL OBSERVATIONS NOTED: WNL * Jennifer Florentino CCC-METAL TECHNICIAN - 08/11/2023 9:30 AM EDT CLINICAL BEDSIDE SWALLOW EVALUATION - Speech-Language Pathology [address] [address] Name: Sofya Perez Location: [facility] A447/A Date: 08/11/2023 Time: 10:10 AM Patient Status: Inpatient Insurance: Payor: MEDICARE / Plan: MEDICARE A AND B / Product Type: *No Product type* / GENERAL INFORMATION: Referring Physician: Soniya Torres MD Admission Date: 08/10/2023 History: Per Epic review 08/10/23, " 83-year-old female with past medical history of breast cancer,lymphoma, pancreatic neuroendocrine tumor, asplenic, paroxysmal AFib on Eliquis, hypertension, who presents as a transfer from [facility] for left frontal parietal IPH with ICH score 1. Patient reports left lower extremity numbness and weakness for about 1 week, on and off. Last night the numbness and weakness returned and was persistent and then started feeling in her right lower extremity. She alerted her ANAYA and was taken to [facility]. Imaging at [facility] showed: 08/10/[address] head without contrast: 2.6 cm diameter IPH in the left frontal lobe with surrounding vasogenic edema. Chronic periventricular ischemic demyelination changesseen due to small-vessel disease. 2 mm midline shift to the right. Mild mass effect seen over the left lateral ventricle. 0600 CTA head/Neck: No occlusion, hemodynamically significant stenosis, or dissection of the major cervical arteries. 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 Patient denies subjective fevers, chills, nausea, vomiting, BM changes, chest pain, abdominal pain,heart palpitations, SOB, headache, dizziness. 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 lymphoma Paroxysmal atrial fibrillation (HCC) 05/02/2019 S/P splenectomy 08/16/2019 Sleep apnea, obstructive Thyroid nodule 12/27/2018 non-specific thyroid nodule on right lobe measuring 2.8x1.6x1.7cm on CT, pt states bx negative. Past Surgical History Past Surgical History: Procedure Laterality Date BREAST BIOPSY Right 2019 Malignant BX LYMPH NODE DEEP AXIL Right 04/22/2020 BIOPSY LYMPH NODE DEEP AXILLARY OPEN performed by Morena Matthew MD at OR [facility] DENTAL SURGERY PROCEDURE NEC IDENTIFY SENTINEL NODE, RADIOACTIVE TRACER Right 04/22/2020 INJECTION PROCEDURE FOR IDENTIFICATION SENTINEL NODE performed by Morena Matthew MD at [facility] MASTECTOMY, PARTIAL Right 04/22/2020 MASTECTOMY PARTIAL performed by Morena Matthew MD at [facility] PROCEDURE - GENERAL Left 03/11/2021 inner,lower left breast punch biopsy by Dr Morena Matthew REMOVAL OF PAROTID GLAND/TUMOR Left 01/28/2019 REMOVAL OF TONSILS, AGE 12+ TOTAL HIP REPLACEMENT & PROSTHESIS Bilateral L 2007, R 2008 IMAGING: MRI BRAIN 08/10/23: "IMPRESSION: 1. 21 x 25 x 25 mm left posterior frontal/parietal lobe intraparenchymal hemorrhage, with associated mass-effect. 2. Focal lesion with associated susceptibility and minimal enhancement anterior to hemorrhage, nonspecific in etiology. 3. 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 4. 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 5. Patchy/confluent nonspecific cerebral white matter T2/FLAIR hyperintense and nonenhancing foci, compatible with moderate microvascular ischemic changes, greater in extent/number for stated age." Current Diet/Dysphagia History: Regular Diet -Pt denies h/o dysphagia. Cognitive-Communication: Pt remained awake and alert. She followed commands and effectively communicated wants/needs. Please see full cognitive-communication assessment this date for details. Barriers to Learning: Medical Status Hearing Acuity: Deferred Best Learning Method: Auditory Pain: No complaints of pain ORAL MECHANISM EXAM: Facial Symmetry Within functional limits Labial Function Within functional limits Lingual Function Within functional limits Velar Function DNT Dentition: Natural PROTECTIVE MECHANISMS: Volitional Swallow DNT Volitional Throat Clearing DNT Volitional Cough DNT Vocal Quality WFL Tracheostomy Tube: Not Present Ventilator Status: Not Applicable SWALLOWING FUNCTION: ORAL PREPARATION PHASE: Puree (IDDSI Level 4): WFL Soft and Bite-Sized (IDDSI Level 6): WFL Regular (IDDSI Level 7): WFL Thin Liquid (IDDSI Level 0): WFL ORAL PHASE: Puree (IDDSI Level 4): WFL Soft and Bite-Sized (IDDSI Level 6): WFL Regular (IDDSI Level 7): WFL Thin Liquid (IDDSI Level 0): WFL PHARYNGEAL PHASE Puree (IDDSI Level 4): WFL Soft and Bite-Sized (IDDSI Level 6): WFL Regular (IDDSI Level 7): WFL Thin Liquid (IDDSI Level 0): WFL RECOMMENDATIONS/PLAN: Videofluoroscopy: Not indicated Diet Level: Regular Liquid Level: Thin Presentation of Medication: As tolerated Positioning: Seated with 90 degree hip flexion Level of Supervision: Intermittent Use of Straws: allowed Compensatory Techniques to be Utilized During PO Intake: Small Bites/Sips, Alternate Solids & Liquids and Slow Rate of Intake Compensatory Strategies Utilized: as above Additional findings: N/A ANTICIPATED FREQUENCY (ON EVAL): Not indicated DIAGNOSIS/IMPRESSIONS: Diagnosis/Impressions: Oral phase WFL. Pharyngeal phase dysphagia not suspected 2/2 absence of overt s/sx of aspiration and/or distress. Rehab Potential: N/A TREATMENT PLAN: Swallowing Treatment: Not Indicated Treatment Goals: N/A Additional Recommendations: If s/sx of aspiration and/or distress are appreciated, please downgradeas nsg safety measure, and re-consult METAL TECHNICIAN services. The above information was discussed with the patient/family. Yes The patient/family was in Agreement * Jayesh Hamilton DO - 08/10/2023 2:37 PM EDTAssociated Order(s): NEUROLOGY CONSULT IP CONSULT - Stroke / Vascular Neurology [address] [address] Name: Sofya Perez Location: [facility] A447/A Date: 08/10/2023 Time: 2:37 PM Date and Time Service was Contacted: Time: 132 Date: 08/10/2023 REQUESTING SERVICE: Critical Care Medicine PRESENTING PROBLEM: RLE numbness and weakness REASON FOR CONSULT: IPH Time patient seen 1500 HPI: Sofya Perez is a 83 year old right handed female with stroke risk factors as outlined below, who presented with worsening bilateral leg numbness and weakness. Per the patient, she has been having some left leg numbness and weakness for the past few weeks. She feels like her left leg is a block of wood and is currently walking with a walker after a recent TIA. Last night, she noted her right leg started feeling numb and weak as well and told the workers at her assisted living that she needed to go to the ED to get checked. She was seen at [facility] ED where she had a CTA which showed a left frontoparietal IPH so she was sent to [facility] for further care. She states her left leg feelsa little better but her right leg still feels weak. She denies any headache, arm weakness or numbness, trouble breathing, or other symptoms at this time. She denies any recent head trauma but does state she fell 6 months ago. She is currently on treatment for her breast cancer and last took eliquis and aspirin this morning. Ischemic Stroke Risk Factors Hypertension Congestive Heart Failure Atrial Fibrillation / Flutter Hypercoagulable State Hemorrhagic Stroke Risk Factors Hypertension Currently taking antithrombotic medication Stroke Mimic Risk Factors Cancer [employer]EL[employer] Medications Reviewed: yes Recent Antithrombotics: Aspirin and Apixaban (Eliquis) Last Dose Taken: within 24 hours CURRENT MEDICATIONS: Note that completed medications (per the MAR) continue to display for 24 hours. Ordered medicationsto be given in the future also display. Current Facility-Administered Medications Medication Dose Route Frequency Provider Acetaminophen (Tylenol) supp 650 mg 650 mg Rectal Q4H PRN Soniya Torres MD [START ON 08/11/2023] Anastrozole (Arimidex) tab 1 mg 1 mg Oral Daily(AM) Soniya Torres MD carbidopa-levodopa 25-100 mg per tab (Sinemet) 0.5 Tablet 0.5 Tablet Oral TID(AM/NOON/HS) Fior Hudson DO chlorHEXIDINE (Periogard) 0.12 % oral rinse 15 mL 15 mL Oral mucosal membrane BID (08,1999) Soniya Torres MD [START ON 08/11/2023] Digoxin (Lanoxin) tab 125 mcg 125 mcg Oral M;W;F Soniya Torres MD Docusate Sodium (Colace) cap 100 mg 100 mg Oral BID(AM/PM) Soniya Torres MD labetalol (Trandate) inj 10 mg 10 mg Intravenous Q15 Min PRN Soniya Torres MD levETIRAcetam (Keppra) 500 mg in 100 mL ivpb *LOCKED DOSE* 500 mg IV Piggyback BID(AM/PM) Soniya Torres MD [START ON 08/11/2023] metoprolol succinate XL (toPROL XL) tab 50 mg 50 mg Oral Daily(AM) Soniya Torres MD Oral Hygiene: Mouth Swab with dentifrice Oral Q4H Limited (00;04;12;16) Soniya Torres MD [START ON 08/11/2023] pravastatin (Pravachol) tab 80 mg 80 mg Oral Daily(AM) Soniya Torres MD senna (Senokot) 1 Tablet 1 Tablet Oral BID(AM/PM) Soniya Torres MD ALLERGIES: Ezetimibe and Chlorpheniramine PAST MEDICAL HISTORY: 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 lymphoma Paroxysmal atrial fibrillation (HCC) 05/02/2019 S/P splenectomy 08/16/2019 Sleep apnea, obstructive Thyroid nodule 12/27/2018 non-specific thyroid nodule on right lobe measuring 2.8x1.6x1.7cm on CT, pt states bx negative. PAST SURGICAL HISTORY: Past Surgical History: Procedure Laterality Date BREAST BIOPSY Right 2019 Malignant BX LYMPH NODE DEEP AXIL Right 04/22/2020 BIOPSY LYMPH NODE DEEP AXILLARY OPEN performed by Morena Matthew MD at OR [facility] DENTAL SURGERY PROCEDURE NEC IDENTIFY SENTINEL NODE, RADIOACTIVE TRACER Right 04/22/2020 INJECTION PROCEDURE FOR IDENTIFICATION SENTINEL NODE performed by Morena Matthew MD at [facility] MASTECTOMY, PARTIAL Right 04/22/2020 MASTECTOMY PARTIAL performed by Morena Matthew MD at [facility] PROCEDURE - GENERAL Left 03/11/2021 inner,lower left breast punch biopsy by Dr Morena Matthew REMOVAL OF PAROTID GLAND/TUMOR Left 01/28/2019 REMOVAL OF TONSILS, AGE 12+ TOTAL HIP REPLACEMENT & PROSTHESIS Bilateral L 2007, R 2008 FAMILY HISTORY: Family History Problem Relation Age of Onset Other (AD) Mother Cancer Father renal, prostate Hypertension Father Cancer Sister AML? Arthritis Brother Hypertension Brother Other (HLD) Son Family History: see above SOCIAL HISTORY: Social History Tobacco Use Smoking status: Never Smokeless tobacco: Never Vaping Use Vaping Use: Never used Substance Use Topics Alcohol use: No Drug use: No ROS: All negative other than as noted in HPI PHYSICAL EXAMINATION: Most Recent Vital Signs: BP: 127 mmHg/79 mmHg (08/10/23 1600) Pulse: 73 (08/10/231599) Temp: 36.5 C (08/10/231599) Temp Summary: Temp Min: 36.4 C (97.5 F) Max: 36.5 C (97.7 F) SpO2: 98 % (08/10/231599) O2 flow rate: Supplemental O2 Delivery: Room Air, None (08/10/231599) Weight: 66.2 kg (145 lb 15.1 oz) (08/10/23 1000) Height: 157.5 cm (5' 2") (08/10/23999) Body mass index is 26.69 kg/m. Vital Signs Last 24 Hours: Systolic BP: Most Recent Systolic BP Av.8 mmHg Min: 122 mmHg Max: 138 mmHg Temperature: Most Recent Temperature Av.4 C Min: 36.39 C Max: 36.5 C Pulse: Pulse Av Min: 73 Max: 84 Respirations: Resp Av.6 Min: 11 Max: 18 SpO2: SpO2 Av.4 % Min: 96 % Max: 98 % General Examination: Constitutional: Appearance non-obese, no deformities, and well groomed Head/face, ears, nose, throat: normocephalic, atraumatic Cardiovascular: normal heart sounds, regular rate, regular rhythm, normal pulses, and no carotid bruit Psychiatric: normal judgement and insight, normal mood, and normal affect Neurologic Examination: Ophthalmoscopic: deferred Mental Status and Orientation: awake, alert, oriented x 3 Memory: intact to recent and remote recall Attention: normal Knowledge:normal Language: no aphasia Speech: no dysarthria Cranial Nerves: CN 2 - no visual defect on confrontation and pupils round, equal, reactive to light CN 3, 4, 6 - extra-ocular movements intact and no nystagmus CN 5 - facial sensation intact V1-3 CN 7 - no facial asymmetry CN 8 - intact hearing CN 9, 10 - palate symmetric, uvula midline, no deviation CN 11 - shoulder shrug full strength CN 12 - tongue protrudes midline Sensory: Intact to light touch distally in bilateral limbs, some agraphesthesia in her right hand (unable to identify letters or numbers as readily as her left hand) Coordination: intact with finger to nose testing and heel to tang normal Gait: deferred due to fall risk Muscle Tone: normal Muscle exam: 3/5 weakness in her right leg, 5/5 otherwise Reflexes: Brachioradialis Biceps Triceps Patellar Achilles Plantars Fanny's Right 2+ 2+ 2+ 1+ 0 downgoing not present Left 2+ 2+ 2+ 1+ 0 downgoing not present SEVERITY SCORES: National [place] of Health Stroke Scale: 1A. LOC: 0 1B. Question: 0 1C. Commands: 0 2. Gaze: 0 3. Visual Wang: 0 4. Facial Palsy: 0 5A. Arm Left: 0 5B. Arm Right: 0 6A. Leg Left: 0 6B. Leg Right: 2 7. Ataxia: 0 8. Sensory: 0 9. Aphasia: 0 10. Dysarthria: 0 11. Extinction: 0 Total: 2 Baseline / Pre-morbid Level of Function by Modified [place] Scale: 0 - No Sxs; 6 - 3 - Mod disability can walk independently 1 - Sxs no disability 4 - Mod disability walks w/ assistance 2 - Sxs slight disability 5 - Severe disability bedridden Modified Leoncio Scale = 3 - Moderate disability. Requires some help, but able to walk without the assistance of another individual. Intracerebral Hemorrhage (ICH) Score: 1 Marroquin & Hill Score: N/A Mcdonald SAH Grade: N/A I have reviewed Radiologic Studies and noted significant findings as follows: CT Head with possible subacute hemorrhage into left frontoparietal lobe with surrounding edema LABS: Labs reviewed as indicated below: LDL 58 INR 1.2 CONSIDERATION OF ACUTE STROKE THERAPIES: IV Thrombolysis Exclusion Criteria: - Acute intracranial hemorrhage IV Thrombolysis Relative Exclusion Criteria: - None IV Thrombolytic Therapy Considerations and Discussion: Patient is not eligible for IV thrombolytic therapy due to having the exclusion criteria above, andrisk to benefit is considered unfavorable. IV Thrombolysis Administration Recommendation: Do not administer IV thrombolytic agent. See any additional recommendations below for acute stroke care. Reason for delay in thrombolytic initiated > 30 minutes after hospital arrival: None. Endovascular Therapy Exclusion Criteria: - No evidence of a causative large vessel occlusion on vascular imaging Endovascular Therapy Relative Exclusion Criteria: - NIH Stroke Scale score less than 6 Endovascular Therapy Assessment: - Patient is not a candidate for endovascular acute stroke therapy due to the above exclusion criteria, and risk to benefit is considered unfavorable. Reason for delay in endovascular therapy: None. IMPRESSION: 83F with history of afib on eliquis, HF, HTN, breast CA, and recent TIAs who [facility] front[facility]etal IPH, Few deficits on neurologic exam but positive for agraphesthesia on her right hand and weakness of her right leg. NIHSS 2. Etiology of IPH unclear but given a number of chronic bleeds seen on SWI, recurrent history of TIA, age, and chronic conditions, could have element of CAA. Unlikely to be from hypertension given BP seems well controlled and INR 1.2.Will need to get MRI to evaluate for any lesions or recent strokes. RECOMMENDATIONS / PLAN: -MRI brain w wo contrast -Frequent neurochecks -Continue pravastatin 80mg -BP goal <140 -Hold anticoagulation for at least 2 weeks -Repeat CTH per NSGY recs and low threshold to repeat if worsening of exam -Keppra per NSGY -Sodium goal of 145-155 Stroke Checklist: DVT Prophylaxis: receiving mechanical, but chemical contraindicated, reason: IPH Antithrombotic Therapy: contraindicated, reason: IPH Atrial Fibrillation or Flutter: yes - anticoagulation currently contraindicated, reason: IPH Statin: receiving - high intensity Stroke Education: personal risk factors for stroke Rehab Therapy Plan: O.T., P.T., and Speech Additional Stroke Care (or Document Contraindication) as Follows: Bedside dysphagia screen; if patient does not pass, maintain NPO and order formal speech evaluation Lab work including CBC, CMP, PT/INR, aPTT Markers of cardiac ischemia (eg. Troponin) and obtain EKG Lipid panel and initiate high intensity statin therapy for LDL goal less than 70 Control blood sugar for goal less than 180, and preferably less than 140, and check HbA1c DVT prophylaxis P.T./O.T./Speech/Rehabilitation consultations Stroke education (contact stroke nurse if necessary) Patient Has Decision Making Capacity: yes Code Status: Full Code The patient was examined and was discussed with Dr. Moi Elena. Associated attestation - Moi Elena MD - 08/10/2023 6:42 PM EDT I saw and evaluated the patient today. I have reviewed the trainee note and agree. Patient wit cortical sensory changes in the right hand/side. Imaging looks odd in terms of density between 30-70 which could be consistent with blood products of varying ages. Given her exam findingsand recent history/report of event would also consider the possibility of malignancy. Agree with repeat CT head at 6 hours and MRI brain w/wo contrast to evaluate th e lesion site in question. Needs good BP control <140 systolic * Lexi Mcnally MD - 08/10/2023 10:45 AM EDTAssociated Order(s): REHAB CONSULT IP CONSULT - Physical Medicine & Rehabilitation [facility] [place]-[address] [id number] Name: Sofya Perez Location: [facility] [id number] Date: 08/11/2023 Time: 12:46 PM REASON FOR CONSULT: Disposition Planning Admit Date: 08/10/2023 Attending Physician: Daron Young MD HPI Sofya Perez is a(n) 83 year old female from [facility] with PMH breast cancer, lymphoma, pancreatic neuroendocrine tumor, asplenic, paroxysmal AFib on Eliquis, HTN, who presents as a transfer from [facility] for left frontal parietal IPH with ICH score 1. Patient reported LLE numbness and weakness for about 1 week, on and off. On the night before arrival, the numbness and weakness returned and was persistent and then started progressing to her RLE. She alerted her ANAYA and was taken to [facility]. CTH 08/10/23 at [facility] showed 2.6 cm diameter IPH in the left frontal lobe with surrounding vasogenic edema. Chronic periventricular ischemic demyelination changes seen due to small-vessel disease. 2 mmmidline shift to the right. Mild mass effect seen over the left lateral ventricle. 08/10/23 CTA head/Neck: No occlusion, hemodynamically significant stenosis, or dissection of the major cervical arteries. 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 Neurology and Neurosurgery consulted. Patient on 7-day course of Keppra until 08/16/23 for seizure prophylaxis. Holding antiplatelet/anticoagulant with SBP goal <140 in the setting of recent brain hemorrhage. Patient seen on 08/11/23. Mild cognitive-communication impairment noted on SLT evaluation 08/10. PT/OT evaluations pending. She is tolerating a regular diet. Patient endorsed BLE weakness and LLE numbness from the mid calf down to her toes. Was using RW and sometimes WC when not ambulate some days athome. Endorsed bladder and bowel incontinence and was wearing adult brief at home. No fever, chills, headaches, chest pain, shortness of breath. Endorsed blurry vision for the past couple of weeks and says she may be getting new glasses. Lives in [facility] in [place] since December 2022. Was previously living in an in-law suite walk-out basement of her daugher's/son-in-law's house, and moved to [facility] after having a fall at home and not being to alert anyone until the following morning. [facility] assists with ADLs, dressing, toileting, bathing, grooming. History confirmed with daughter over the phone. 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 lymphoma Paroxysmal atrial fibrillation (HCC) 05/02/2019 S/P splenectomy 08/16/2019 Sleep apnea, obstructive Thyroid nodule 12/27/2018 non-specific thyroid nodule on right lobe measuring 2.8x1.6x1.7cm on CT, pt states bx negative. Past Surgical History: Procedure Laterality Date BREAST BIOPSY Right 2019 Malignant BX LYMPH NODE DEEP AXIL Right 04/22/2020 BIOPSY LYMPH NODE DEEP AXILLARY OPEN performed by Morena Matthew MD at [facility] DENTAL SURGERY PROCEDURE NEC IDENTIFY SENTINEL NODE, RADIOACTIVE TRACER Right 04/22/2020 INJECTION PROCEDURE FOR IDENTIFICATION SENTINEL NODE performed by Morena Matthew MD at [facility] MASTECTOMY, PARTIAL Right 04/22/2020 MASTECTOMY PARTIAL performed by Morena Matthew MD at [facility] PROCEDURE - GENERAL Left 03/11/2021 inner,lower left breast punch biopsy by Dr Morena Matthew REMOVAL OF PAROTID GLAND/TUMOR Left 01/28/2019 REMOVAL OF TONSILS, AGE 12+ TOTAL HIP REPLACEMENT & PROSTHESIS Bilateral L 2007, R 2008 Social History Tobacco Use Smoking status: Never Smokeless tobacco: Never Vaping Use Vaping Use: Never used Substance Use Topics Alcohol use: No Drug use: No Family History Problem Relation Age of Onset Other (AD) Mother Cancer Father renal, prostate Hypertension Father Cancer Sister AML? Arthritis Brother Hypertension Brother Other (HLD) Son Review of patient's allergies indicates: Allergen Reactions Ezetimibe Other reaction(s): Weakness Chlorpheniramine Anxious Chlor Trimeton Current Facility-Administered Medications Medication Dose Route Frequency Provider hEParin inj 5,000 Units 5,000 Units Subcutaneous Q8H oSniya Torres MD levETIRAcetam (Keppra) tab 500 mg 500 mg Oral BID(AM/PM) Soniya Torres MD Acetaminophen (Tylenol) supp 650 mg 650 mg Rectal Q4H PRN Soniya Torres MD Anastrozole (Arimidex) tab 1 mg 1 mg Oral Daily(AM) Soniya Torres MD carbidopa-levodopa 25-100 mg per tab (Sinemet) 0.5 Tablet 0.5 Tablet Oral TID(AM/NOON/HS) Fior Hudson DO chlorHEXIDINE (Periogard) 0.12 % oral rinse 15 mL 15 mL Oral mucosal membrane BID (0800,1999) Soniya Torres MD Digoxin (Lanoxin) tab 125 mcg 125 mcg Oral ;; Soniya Torres MD Docusate Sodium (Colace) cap 100 mg 100 mg Oral BID(AM/PM) Soniya Torres MD labetalol (Trandate) inj 10 mg 10 mg Intravenous Q15 Min PRN Soniya Torres MD metoprolol succinate XL (toPROL XL) tab 50 mg 50 mg Oral Daily(AM) Soniya Torres MD Oral Hygiene: Mouth Swab with dentifrice Oral Q4H Limited (00;04;12;16) Soniya Torres MD pravastatin (Pravachol) tab 80 mg 80 mg Oral Daily(AM) Soniya Torres MD senna (Senokot) 1 Tablet 1 Tablet Oral BID(AM/PM) Soniya Torres MD PREVIOUS FUNCTIONAL STATUS: Assistance with ADLs, dressing, toileting, bathing, grooming Home Set-up and Support System: Lives in [facility] Assistive devices used: RW, WC Recent Speech Therapy Assessment 08/11/23: Oral phase WFL. Pharyngeal phase dysphagia not suspected 2/2 absence of overt s/sx of aspiration and/or distress. Pt presents w/mild cognitive-communication impairment, characterized by deficits in memory, ?visuospatial organization, and expressive language. Pt demonstrated functional confrontation and responsive naming. Mild disfluencies in speech when word-finding at the conversational level. Pt indicated speech is different from baseline. Speech observed to be mildly disfluent w/occasional phonemic paraphasic errors. Pt followed commands and responses were grossly appropriate throughout the assessment. Pt demonstrated mild deficits in delayed recall of novel stimuli, which improved w/provision of semantic cue. Mild short term deficits w/in conversation. snf memory appeared functional for conversation. Pt was oriented to all concepts. Mild deficits in verbal and calculation problem-solving, w/limited benefit from min cueing. Pt demonstrated inaccurate spacing and missing numerals on clock drawing. Unclear if r/t visuospatial deficits/organization deficits vs visual impairment (pt reports difficulty w/current glasses). Recent Physical Therapy Assessment: pending Recent Occupational Therapy Assessments: pending Current level of function: Bed mobility: independent Transfer: not tested Ambulation: not tested Physical Examination BP: 95 mmHg/63 mmHg (08/11/23 1100) Pulse: 65 (08/11/23 1100) Temp: 36 C (08/11/23 1000) Temp Summary: Temp Min: 36 C (96.8 F) Max: 36.7 C (98.1 F) SpO2: 99 % (08/11/23 1100) O2 flow rate: Supplemental O2 Delivery: Room Air, None (08/11/23 1100) Vital Signs Last 24 Hours: BP Min: 91/77 Max: 146/91 Pulse Av.3 Min: 64 Max: 87 Most Recent Temperature Av.4 C Min: 36 C Max: 36.72 C Resp Av.2 Min: 11 Max: 26 General: NAD; resting comfortably; conversing appropriately HEENT: atraumatic, wearing glasses Respiratory: nonlabored breathing on RA Skin: no erythema, cyanosis, or other rashes Psychiatric: appropriate mood and affect Neuro/MSK: AAOx3 Registration: 07/01 Recall: 2/3 (3/3 with cue) Knowledge: can state current president Attention: unable to spell WORLD backwards No aphasia No dysarthria CN 2-12 intact 4/5 bilateral upper extremity strength in C5-T1 myotomes sensation intact to light touch in bilateral upper extremities in C5-T1 dermatomes reflexes 2+ bilaterally in biceps, brachioradialis 3-/5 R hip flexion, 4-/5 knee extension/flexion, 4+/5 dorsiflexion/plantarflexion 4-/5 R hip flexion, 4/5 knee extension/flexion, 4+/5 dorsiflexion/plantarflexion ROM decreased in L>R ankle sensation intact to light touch in bilateral lower extremities L2-S2 dermatomes, EXCEPT decreased in LLE from mid calf distally reflexes 1+ bilaterally in patellae, 0 in b/l achilles negative trevino bilaterally Coordination: finger to nose intact bilaterally Data Review Hemoglobin AIC Results: Lab Results Component Value Date/Time HEMOGLOBIN A1C - [facility] 6.0 (H) 04/11/2023 12:04 PM HEMOGLOBIN A1C - [facility] 6.0 (H) 04/08/2022 12:43 PM Recent Results (from the past 24 hour(s)) CBC Collection Time: 08/10/23 2:13 PM Result Value Ref Range WBC 4.37 4.00 - 10.80 K/uL RBC 3.86 3.85 - 5.15 M/uL HGB 12.8 12.0 - 15.3 g/dL HCT 39.1 36.0 - 45.2 % MCV 101.3 81.5 - 97.5 fL MCH 33.2 27.0 - 34.0 pg MCHC 32.7 32.0 - 36.0 g/dL RDW 15.9 11.5 - 15.5 % PLT 251 140 - 400 K/uL MPV 10.5 6.6 - 11.1 fL nRBCs 0 <=0 /100 WBCs BASIC METABOLIC PANEL Collection Time: 08/11/23 4:24 AM Result Value Ref Range BUN 21 (H) 6 - 20 mg/dL Creatinine 0.9 0.5 - 1.0 mg/dL Estimated Glomerular Filtration Rate 63 >=60 mL/min Sodium 140 135 - 146 mmol/L Potassium 4.3 3.5 - 5.1 mmol/L Chloride 104 98 - 107 mmol/L CO2 29 22 - 32 mmol/L Anion Gap 7 7 - 15 mmol/L Glucose 86 70 - 120 mg/dL Calcium 8.5 8.4 - 10.2 mg/dL LABS: CBC Lab Results Component Value Date/Time WBC 4.37 08/10/2023 02:13 PM WBC 4.71 08/14/2019 08:53 AM RBC 3.86 08/10/2023 02:13 PM RBC 4.29 08/14/2019 08:53 AM HGB 12.8 08/10/2023 02:13 PM HGB 12.4 07/29/2022 12:00 AM HGB 13.6 08/14/2019 08:53 AM HCT 39.1 08/10/2023 02:13 PM HCT 42.4 08/14/2019 08:53 AM MCV 101.3 08/10/2023 02:13 PM MCV 98.8 (H) 08/14/2019 08:53 AM MCH 33.2 08/10/2023 02:13 PM MCH 31.7 08/14/2019 08:53 AM MCHC 32.7 08/10/2023 02:13 PM MCHC 32.1 08/14/2019 08:53 AM RDW 15.9 08/10/2023 02:13 PM RDW 15.4 08/14/2019 08:53 AM PLT 251 08/10/2023 02:13 PM PLT 259 08/14/2019 08:53 AM MPV 10.5 08/10/2023 02:13 PM NEUTS 68.2 04/11/2023 12:04 PM NEUTS 59.1 04/03/2019 01:37 PM LYMP 27.6 04/03/2019 01:37 PM MONOS 13.8 (H) 04/11/2023 12:04 PM MONOS 10.5 04/03/2019 01:37 PM EOS 1.2 04/11/2023 12:04 PM EOS 2.2 04/03/2019 01:37 PM BASOS 0.2 04/11/2023 12:04 PM BASOS 0.6 04/03/2019 01:37 PM LABS: BMP Lab Results Component Value Date/Time BUN 21 (H) 08/11/2023 04:24 AM BUN 17 08/14/2019 08:53 AM CREAT 0.9 08/11/2023 04:24 AM CREAT 0.96 07/05/2023 12:00 AM CREAT 1.2 (H) 08/14/2019 08:53 AM GFRESTIMATED 43.3 (L) 08/14/2019 08:53 AM NA 140 08/11/2023 04:24 AM NA 144 08/14/2019 08:53 AM POTASSIUM 4.3 08/11/2023 04:24 AM POTASSIUM 4.2 07/05/2023 12:00 AM POTASSIUM 4.9 08/14/2019 08:53 AM CL 104 08/11/2023 04:24 AM CL 104 08/14/2019 08:53 AM CO2 29 08/11/2023 04:24 AM CO2 31 08/14/2019 08:53 AM AGP 7 08/11/2023 04:24 AM AGP 9 08/14/2019 08:53 AM CA 8.5 08/11/2023 04:24 AM CA 9.6 08/14/2019 08:53 AM Imaging studies: MRI BRAIN W WO CONTRAST Narrative: EXAM: BRAIN MR WITHOUT, THEN WITH CONTRAST. 08/10/2023 6:07 pm. HISTORY: IPH. TECHNIQUE: Multiplanar brain MR sequences (both long TE and short TE) both before/after intravenous gadolinium-based contrast administration (please consult [facility] for details). Total MR sequences submitted for review: 17. COMPARISON: HEAD CT WITHOUT CONTRAST dated 08/10/2023; BRAIN MR WITH/WITHOUT CONTRAST dated 05/11/2023. FINDINGS: Motion artifact. 21 x 25 x 25 mm (AP, transverse, craniocaudal) left posterior frontal/parietal lobe intraparenchymal hemorrhage with central T1 hypointense/T2 hyperintense signal and susceptibility (series 16, image16; series 8, image 6; series 13, image 30). Associated mass-effect. Central diffusion restriction may represent trapped fluid or artifact due to hemorrhage susceptibility. Focal signal abnormality with associated minimal enhancement and susceptibility anterior to hemorrhage, nonspecific in etiology (series 9, 10, and 16, image 15; series 13, image 29) series 21, image 91). Left medial parietal lobe subcentimeter lesion with focal enhancement and associated susceptibility, most consistent with additional cavernous venous malformation (series 9, 10, 16, and 17, image 16;series 13, image 30). 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 Patchy and confluent cerebral white matter T2/FLAIR hyperintense and nonenhancing foci are present, which are nonspecific but compatible with moderate microvascular ischemic changes, and which are greater in extent/number than expected for stated age. Symmetric ventricular/sulcal enlargement, representing chronic volume loss. Otherwise, normal brain parenchymal signal. No additional restricted diffusion or abnormal enhancement. Patent basal cisterns. No abnormal extra-axial fluid collections. Intracranial arterial flow voids are suboptimally evaluated due to slice selection artifact and motion artifact, but are otherwise grossly normal. Grossly unremarkable head soft tissues. Grossly normal bilateral orbits. Grossly normal cranium andskull base. Trace (< 3 mm) bilateral ethmoid air cell mucosal thickening. Included paranasal sinuses are otherwise clear. No bilateral mastoid air cell or middle ear opacification. Impression: IMPRESSION: 1. 21 x 25 x 25 mm left posterior frontal/parietal lobe intraparenchymal hemorrhage, with associated mass-effect. 2. Focal lesion with associated susceptibility and minimal enhancement anterior to hemorrhage, nonspecific in etiology. 3. 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 4. 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 5. Patchy/confluent nonspecific cerebral white matter T2/FLAIR hyperintense and nonenhancing foci, compatible with moderate microvascular ischemic changes, greater in extent/number for stated age. This case was submitted to the Radiology Backup Administrative Coordinator (DIRECTOR OF CATH LAB): Significant Abnormal Result. RADIOLOGY EXAM - CT (IMAGES ONLY, NO REPORT) This is an imaging study not interpreted or resulted by a [facility] or [facility] contracted radiologist. RADIOLOGY EXAM - CT (IMAGES ONLY, NO REPORT) This is an imaging study not interpreted or resulted by a [facility] or [facility] contracted radiologist. RADIOLOGY EXAM - CT (IMAGES ONLY, NO REPORT) This is an imaging study not interpreted or resulted by a [facility] or [facility] contracted radiologist. CT HEAD/BRAIN WO CONTRAST Narrative: EXAM: CT HEAD WITHOUT CONTRAST - 08/10/2023 1:52 pm HISTORY: Follow-up of intraparenchymal hemorrhage TECHNIQUE: CT of the head was performed without intravenous contrast. Multiplanar reformats were generated. COMPARISON: Report from external CTA head/neck 08/10/2023, MRI brain 05/11/2023 FINDINGS: Early subacute appearing left posterior frontal/parietal intraparenchymal hematoma measuring 2.4 x 3.0 x 2.3 cm (AP X TV X CC), similar to the size described in a report for CTA head/neck performed at an outside institution on 08/10/2023. Edema surrounding the hematoma with localized mass effect con tributing to 1-2 mm rightward midline shift and flattening of the overlying sulci. Punctate high attenuation focus along the left parieto-occipital fissure, likely reflecting a smallamount of redistributed subarachnoid hemorrhage related to the intraparenchymal hematoma (series 5,image 31). No other areas suspicious for recent intracranial hemorrhage or acute territorial infarction. Areasof encephalomalacia/gliosis related to small chronic right MCA territory infarctions within the right frontal and high parietal lobes. Scattered small chronic infarctions within the bilateral cerebellar hemispheres. Patchy areas of low attenuation throughout the periventricular, subcortical, and deep white matter which are nonspecific but likely related to chronic microvascular disease. Flattening along the body of the left lateral ventricle related to the hematoma and surrounding edema.. Diffuse parenchymal volume loss with proportionate ventricular and sulcal prominence. No hydrocephalus. No extra-axial fluid collections. Intracranial atherosclerotic calcifications. Mild mucosal thickening scattered throughout the paranasal sinuses and ethmoid air cells. The mastoid air cells are clear. Orbits are unremarkable. No calvarial fracture. Impression: IMPRESSION: Early subacute appearing left frontoparietal intraparenchymal hematoma, grossly matching the size described in the report from CTA head/neck performed at an outside institution on 08/10/2023. Similardegree of previously described surrounding edema and mass effect with approximately 1-2 mm rightward midline shift and flattening of the left lateral ventricle. Potential focus of subarachnoid hemorrhage along the left parieto-occipital fissure sulcus, likely reflecting redistribution of pre-existing blood from the intraparenchymal hematoma. Correlation withprior external imaging is advised to assess for stability of this finding. No other areas suspicious for recent intracranial hemorrhage or acute territorial infarction. Smallchronic infarctions involving the right parietal lobe and bilateral cerebellar hemispheres. Chronicmicrovascular white matter disease and parenchymal volume loss. MR imaging is often more sensitive in the detection of acute or subtle ischemic, inflammatory or neoplastic lesions, and can be considered if there are persistent or unexplained neurologic findings. Assessment and Plan Active Problems: Abnormal CT of the head (POA: Unknown) Right-sided sensory deficit present (POA: Unknown) Chronic anticoagulation (POA: Unknown) POA = Present On Admission Sofya Perez is a(n) 83 year old female PMH breast cancer, lymphoma, pancreatic neuroendocrine tumor, asplenic, paroxysmal AFib on Eliquis, HTN who presents with mobility and ADL deficits secondary to L frontoparietal IPH. Imaging reviewed showing early subacute L posterior frontal/parietal intra parenchymal hematoma size similar to prior CTH findings. Plan -PT/OT evaluations pending -Due to the medical complexity and functional deficits below patient's baseline, this patient requires physician oversight daily in inpatient rehabilitation under 24/7 nursing care, physical and occupational therapy 3 hours per day, 5 days per week in order to maximize functional independence in the safest manner. ELOS 10-14 days. Patient may then most likely be discharged back to [facility]. -Continue Keppra for seizure prophylaxis per Neurosurgery (last dose 08/16/23) -Holding antiplatelet/anticoagulant x14 days until 08/24/23 in the setting of recent brain hemorrhage -Monitor vitals (SBP goal <140) and labs (Na goal 145-155) -Follow up CTH in 2 weeks and MRI brain outpatient to monitor IPH resolution -PM&R will continue to follow for pending therapy evaluations. Please tiger text PM&R Consult service if patient's functional or medical status changes and requires our further input. Patient to be discussed with attending Dr. Kelley. Lexi Mcnally MD Physical Medicine and Rehabilitation [facility] Associated attestation - Vijay Kelley III, MD - 08/11/2023 5:04 PM EDT I saw and evaluated the patient today. I have reviewed the trainee note and agree. No gross focal motor deficit. Weaker proximally in LEs. Likely appropriate for transfer to inpatient rehabilitation when medically stable. Good chance of successful discharge to community as she resides in an [facility]. * Mercedez Radford PA-C - 08/10/2023 10:20 AM EDTAssociated Order(s): NEUROSURGERY CONSULT IP CONSULT - Neurosurgery [address] [address] Name: Sofya Perez Location: [facility] [id number] Date: 08/10/2023 Time: 10:20 AM REQUESTING SERVICE: Critical Care REASON FOR CONSULT: "IPH" HPI: Sofya Perez is a 83 year old female w/ a PMH significant for breast cancer, lymphoma, pancreatic neuroendocrine tumor, asplenia, a-fib and DVT (on eliquis and bASA), HTN, HF, and LEFT hip replacment who presents as a transfer from [facility] for LEFT frontoparietal IPH, ICH score 1, SBP 130sat presentation. Endorses months of "heavy" LLE. About 1 week ago she was laying in bed and noticednumbness and weakness in her LLE. States it went away so she did not think much of it. Then last night she was laying in bed and the numbness and weakness returned. This time it continued to stay andthen she started to feel it in her right leg. States she alerted her assisted living facility and was taken to [facility]. Found the IPH and transferred to [facility]. Endorses some dizziness if stands up fast, blurry vision since her glasses broke. Denies headache, vomiting, lethargy. 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 lymphoma Paroxysmal atrial fibrillation (HCC) 05/02/2019 S/P splenectomy 08/16/2019 Sleep apnea, obstructive Thyroid nodule 12/27/2018 non-specific thyroid nodule on right lobe measuring 2.8x1.6x1.7cm on CT, pt states bx negative. Past Surgical History: Past Surgical History: Procedure Laterality Date BREAST BIOPSY Right 2019 Malignant BX LYMPH NODE DEEP AXIL Right 04/22/2020 BIOPSY LYMPH NODE DEEP AXILLARY OPEN performed by Morena Matthew MD at OR [facility] DENTAL SURGERY PROCEDURE NEC IDENTIFY SENTINEL NODE, RADIOACTIVE TRACER Right 04/22/2020 INJECTION PROCEDURE FOR IDENTIFICATION SENTINEL NODE performed by Morena Matthew MD at [facility] MASTECTOMY, PARTIAL Right 04/22/2020 MASTECTOMY PARTIAL performed by Morena Matthew MD at [facility] PROCEDURE - GENERAL Left 03/11/2021 inner,lower left breast punch biopsy by Dr Morena Matthew REMOVAL OF PAROTID GLAND/TUMOR Left 01/28/2019 REMOVAL OF TONSILS, AGE 12+ TOTAL HIP REPLACEMENT & PROSTHESIS Bilateral L 2007, R 2008 Social History: Social History Tobacco Use Smoking status: Never Smokeless tobacco: Never Vaping Use Vaping Use: Never used Substance Use Topics Alcohol use: No Drug use: No Family History: Family History Problem Relation Age of Onset Other (AD) Mother Cancer Father renal, prostate Hypertension Father Cancer Sister AML? Arthritis Brother Hypertension Brother Other (HLD) Son Current Hospital Medications: Note that completed medications (per the MAR) continue to display for 24 hours. Ordered medicationsto be given in the future also display. Current Facility-Administered Medications Medication Dose Route Frequency Provider Acetaminophen (Tylenol) supp 650 mg 650 mg Rectal Q4H PRN Soniya Torres MD chlorHEXIDINE (Periogard) 0.12 % oral rinse 15 mL 15 mL Oral mucosal membrane BID (0800,1999) Soniya Torres MD labetalol (Trandate) inj 10 mg 10 mg Intravenous Q15 Min PRN Soniya Torres MD Oral Hygiene: Mouth Swab with dentifrice Oral Q4H Limited (00;04;12;16) Soniya Torres MD Allergies: Ezetimibe and Chlorpheniramine ROS: Constitutional: (-) fever chills sweats or weight loss Eyes: (+) blurred vision ENT: (+) Dizziness Cardiovascular: (-) negative: no chest pain, dyspnea, syncope, or palpitations Pulmonary: (-) negative: no cough, wheezing, or shortness of breath Abdominal/GI: (-) negative: no pain, heartburn, dysphagia, bleeding, change in bowel habits, nauseaor vomiting Neurology: (+) Weakness left leg and change in sensation PHYSICAL EXAMINATION: Most Recent Vital Signs: BP: 135 mmHg/91 mmHg (08/10/23 1000) Pulse: 74 (08/10/23 1000) Temp: 36.39 C (08/10/23 1000) Temp Summary: Temp Min: 36.4 C (97.5 F) Max: 36.4 C (97.5 F) SpO2: 98 % (08/10/23 1000) O2 flow rate: Supplemental O2 Delivery: Room Air, None (08/10/23 1000) Vital Signs Over Last 24 Hours: Systolic BP: Most Recent Systolic BP Av mmHg Min: 135 mmHg Max: 135 mmHg Temperature: Most Recent Temperature Av.4 C Min: 36.39 C Max: 36.39 C Pulse: Pulse Av Min: 74 Max: 84 Respirations: Resp Av.5 Min: 13 Max: 18 SpO2: SpO2 Av % Min: 96 % Max: 98 % GCS: Eyes Open: 4 = spontaneous Best Verbal Response: 5 = verbally appropriate for age Best Motor Response: 6 = obeys commands appropriate for age Coma Score: 15 Awake and alert PERRL Tracks around the room Facial expression symmetric Speech intact Hearing intact Good shoulder shrug 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 No pronator drift 5/5 strength in BUE 4+/5 L hip flexion (pain limited, history of hip replacement), otherwise 5/5 LLE 5/5 strength in RLE Sensation intact LABS: CHEMISTRY: BUN, Creatinine, GFR Estimated, Sodium, Potassium, Chloride, Carbon Dioxide, Glucose, Calcium (see below for most recent value): Lab Results Component Value Date/Time BUN 26 (H) 06/24/2023 08:53 AM BUN 17 08/14/2019 08:53 AM CREAT 0.96 07/05/2023 12:00 AM CREAT 1.2 (H) 08/14/2019 08:53 AM GFRESTIMATED 43.3 (L) 08/14/2019 08:53 AM NA 143 06/24/2023 08:53 AM NA 144 08/14/2019 08:53 AM POTASSIUM 4.2 07/05/2023 12:00 AM POTASSIUM 4.9 08/14/2019 08:53 AM CL 102 06/24/2023 08:53 AM CL 104 08/14/2019 08:53 AM CO2 30 06/24/2023 08:53 AM CO2 31 08/14/2019 08:53 AM CA 9.2 06/24/2023 08:53 AM CA 9.6 08/14/2019 08:53 AM CREATININE: Creatinine (see below for last three most recent values): Lab Results Component Value Date/Time CREAT 0.96 07/05/2023 12:00 AM CREAT 1.0 06/24/2023 08:53 AM CREAT 1.0 04/11/2023 12:04 PM CREAT 1.0 01/13/2023 12:18 PM CREAT 1.00 07/29/2022 12:00 AM CREAT 0.91 10/19/2020 12:00 AM CREAT 1.2 (H) 08/14/2019 08:53 AM CREAT 1.1 (H) 07/10/2019 11:20 AM CREAT 1.1 (H) 04/03/2019 01:37 PM BLOOD COUNT: WBC, Hgb, Platelets (see below for most recent value): Lab Results Component Value Date/Time WBC 4.34 04/11/2023 12:04 PM WBC 4.71 08/14/2019 08:53 AM HGB 12.3 04/11/2023 12:04 PM HGB 12.4 07/29/2022 12:00 AM HGB 13.6 08/14/2019 08:53 AM PLT 235 04/11/2023 12:04 PM PLT 259 08/14/2019 08:53 AM HEMOGLOBIN: Hgb (see below for last three most recent values): Lab Results Component Value Date/Time HGB 12.3 04/11/2023 12:04 PM HGB 11.7 (L) 01/13/2023 12:18 PM HGB 11.0 (L) 01/07/2023 06:05 AM HGB 12.4 07/29/2022 12:00 AM HGB 13.1 10/19/2020 12:00 AM HGB 13.6 08/14/2019 08:53 AM HGB 11.7 (L) 07/10/2019 11:20 AM HGB 14.1 04/03/2019 01:37 PM IMAGING: CT head-left frontal IPH with midline shift COUNSELING TIME: 60 minutes IMPRESSION: Sofya Perez is a 83 year old female w/ a PMH significant for breast cancer, lymphoma, pancreatic neuroendocrine tumor, asplenia, a-fib and DVT (on eliquis and bASA), HTN, HF, and LEFThip replacment who presents as a transfer from [facility] for LEFT frontoparietal IPH, ICH score1, SBP 130s at presentation. Can consider CAA or underlying lesion. Pain limited 4+/5 left hip strength (prior hip replacement, does not correlate with imaging findings), otherwise intact. RECOMMENDATIONS: Q1 hr neuro checks ICU s/p kcentra goal INR < 1.4 Goal SBP < 140 Hold Ap/Ac x14 days Keppra 500 BID x7 days 6 hour interval repeat CTH Ok for DVT chemo ppx if rCTH stable Ok for regular diet if rCTH stable Neurology consult MRI w/wo to assess for underlying lesion likely 3 month interval MRI w/wo This patient was discussed with the resident telesales consultant documented in this encounter Nursing Notes * Rex Evangelista RN - 08/12/2023 7:51 AM EDT Dual Licensed Skin Assessment completed by Rex WILLOUGHBY and Catalina WILLOUGHBY. The patient is/has a N/A Skin Breakdown (includes non blanchable erythema): No Pt.has callused area on L foot 3 rd toe. * Jean Jim RN - 08/10/2023 10:08 AM EDT Dual Licensed Skin Assessment completed by Suad Collier RN and Jean Ibrahim RN. The patient is/has a N/A Skin Breakdown (includes non blanchable erythema): No documented in this encounter Miscellaneous Notes * Pt Handout (on AVS) - MEGNA, PATIENT HANDOUT - 08/14/2023 12:01 PM EDT Images from the original note were not included. [id number] What Is Hemorrhagic Stroke? The brain needs a constant supply of blood to work well During a stroke, blood stops flowing to part of the brain. The affected area is damaged. Its functions are harmed or even lost. Most strokes are caused by a blockage in a blood vessel that supplies the brain (ischemic stroke). They can also occur if a blood vessel in the brain breaks open (ruptures). This is a hemorrhagic stroke. The carotids are large arteries that carry blood from the heart to the brain. How a hemorrhagic stroke occurs Hemorrhagic stroke occurs when a blood vessel in the brain ruptures. This lets blood spill into or build up in nearby brain tissue. The extra blood presses on those brain cells. It can damage them oreven cause them to . Other brain cells because their normal blood supply is cut off because of high pressure in the skull. Blood from a ruptured artery puts pressure on the brain and damages brain cells. Last Reviewed Date: 07/31/202319999734-2513 [employer]. All rights reserved. This information is not intended as a substitute for professional medical care. Always follow your healthcare professional's instructions. * Pt Handout (on AVS) - MEGAN, PATIENT HANDOUT - 08/14/2023 12:01 PM EDT Images from the original note were not included. [id number] Symptoms of a Stroke During a stroke, blood stops flowing to part of the brain. This can damage areas in the brain that control the rest of the body. A stroke can happen to anyone at any age. Call 911 and get help right away if any of these symptoms come on suddenly, even if the symptoms don?t last. Know the symptoms of a stroke A sudden feeling of weakness on one side of your body may be a sign that you are having a stroke. Weakness. You may feel a sudden weakness, tingling, or a loss of feeling on one side of your face or body including your arm or leg. Vision problems. You may have sudden double vision or trouble seeing in one or both eyes. Speech problems. You may have sudden trouble talking, slurred speech, or problems understanding others. Headache. You may have a sudden, severe headache. Movement problems. You may have sudden trouble walking, dizziness, a feeling of spinning, a lossof balance, a feeling of falling, or blackouts. Seizure. You may also have a seizure as the first symptom of a stroke. When to call 911 Remember: If you have any of these symptoms, or if someone you are with has these symptoms, call 911 as soon as [address] Never drive yourself or the victim. The ambulance can alert the hospital and start treatment. B.E. F.A.S.T. is an easy way to remember the signs of a stroke. When you see these signs, you will know that you need to call 911 fast. B.E. F.A.S.T. stands for: B is for balance. Sudden loss of balance or coordination. E is for eyes. Vision changes in one or both eyes. F is for face drooping. One side of the face is drooping or numb. When the person smiles, the smile is uneven. A is for arm weakness. One arm is weak or numb. When the person lifts both arms at the same time, one arm may drift downward. S is for speech difficulty. You may notice slurred speech or difficulty speaking. The person can't repeat a simple sentence correctly when asked. T is for time to dial 911. If someone shows any of these symptoms, even if they go away, call 911 right away. Make note of the time the symptoms first appeared. Last Reviewed Date: 10/29/202119995155-4337 [employer]. All rights reserved. This information is not intended as a substitute for professional medical care. Always follow your healthcare professional's instructions. * Pt Handout (on AVS) - MEGAN PATIENT HANDOUT - 08/14/2023 12:01 PM EDT 90909 Discharge Instructions for Stroke You have a high risk for a stroke, or a TIA (transient ischemic attack). During a stroke, blood stops flowing to part of your brain. This can damage areas in the brain that control other parts of thebody. Symptoms from a stroke depend on which part of the brain has been affected. Stroke risk factors Once you?ve had a stroke, you?re at greater risk for another one. Listed below are some other factors that can raise your risk for a stroke: High blood pressure High cholesterol Cigarette or cigar smoking Diabetes Carotid or other artery disease Atrial fibrillation, atrial flutter, or other heart disease Not being physically active Obesity Certain blood disorders, such as sickle cell anemia Drinking too much alcohol Abusing street drugs Race Gender Family history of stroke Diet high in salty, fried, or greasy foods Changes in daily living Doing some everyday tasks may be hard after you?ve had a stroke. But you can learn new ways to manage. In fact, doing daily activities may help you to regain muscle strength. This can help your affected arm or leg work more normally. Be patient. Give yourself time to adjust. And appreciate the progress you make. Daily activities You may be at risk of falling. Make changes to your home to help you walk more easily. A therapist will decide if you need an assistive device, such as a cane or walker, to walk safely. You may need to see an occupational therapist (OT). Or you may see a physical therapist (PT). Thesehealthcare providers can help you to learn new ways of doing things. For example, you may need to make changes in how you bathe or dress. You may also need a speech therapist. This is someone who helps you speak normally again and be able to swallow. Tips for showering or bathing Test the water temperature with a hand or foot that was not affected by the stroke. Use grab bars, a shower seat, a handheld showerhead, and a long-handled brush. Use any other device as advised by your therapists. Tips for getting dressed Dress while sitting, starting with the affected side or limb. Wear shirts that pull easily over your head. Wear pants or skirts with elastic waistbands. Use zippers with loops attached to the pull tabs. Lifestyle changes Take your medicines exactly as directed. Don?t skip doses. Begin an exercise program. Ask your provider how to get started. Ask how much activity you should try to get every day or week. You can benefit from simple activities such as walking or gardening. Limit how much alcohol you drink. Control your cholesterol level. Follow your provider?s advice about how to do this. If you are a smoker, quit now. Join a stop-smoking program to improve your chances of success. Ask your provider about medicines or other methods to help you quit. Learn stress management methods. These can help you deal with stress in your home and work life. Diet Your healthcare provider will guide you on changes you may need to make to your diet. They may advise that you see a registered dietitian for help with changes. The changes can improve your cholesterol, blood pressure, and blood sugar. Changes may include: Reducing the amount of fat and cholesterol you eat Reducing the amount of salt (sodium) in your diet, especially if you have high blood pressure Eating more vegetables and fruits Eating more lean proteins, such as fish, poultry, and beans and peas (legumes) Eating less red meat and processed meats Using low-fat dairy products Limiting vegetable oils and nut oils Limiting sweets and processed foods such as chips, cookies, and baked goods Not eating trans fats. These are often found in processed foods. Don't eat any food that has hydrogenated oils listed in its ingredients. Follow-up care Keep your medical appointments. Close follow-up is important to stroke rehabilitation and recovery. Some medicines require blood tests to check for progress or problems. Keep follow-up appointments for any blood tests ordered by your providers. Call 911 Call 911 right away if you have any of the following symptoms of stroke: Weakness, tingling, or loss of feeling on one side of your face or body Sudden double vision or trouble seeing in one or both eyes Sudden trouble talking or slurred speech Trouble understanding others Sudden, severe headache Dizziness, loss of balance, or a sense of falling Blackouts or seizures B.E. F.A.S.T. is an easy way to remember the signs of stroke. When you see these signs, you know that you need to call 911 fast. B.E. F.A.S.T. stands for: B is for balance. Sudden loss of balance or coordination. E is for eyes. Vision changes in one or both eyes. F is for face drooping. One side of the face is drooping or numb. When the person smiles, the smile is uneven. A is for arm weakness. One arm is weak or numb. When the person lifts both arms at the same time, one arm may drift downward. S is for speech difficulty. You may notice slurred speech or trouble speaking. The person can't repeat a simple sentence correctly when asked. T is for time to call 911. If someone shows any of these symptoms, even if they go away, call 911 right away. Make note of the time the symptoms first appeared. Last Reviewed Date: 09/29/20212021 [employer]. All rights reserved. This information is not intended as a substitute for professional medical care. Always follow your healthcare professional's instructions. * Ancillary Progress Note - Rika Schneider MSW - 08/14/2023 10:50 AM EDT CARE MANAGEMENT - ADULT TRANSITION NOTE [facility]-[address] [address] Name: Sofya Perez Location: [facility] G409/A Date: 08/14/2023 Risk Stratification Risk Stratification Psycho Social / Medical Concerns Identified: Adjustment to illness/injury (08/11/23 1150) Readmission Risk Score: 10.18 (08/14/23 0801) AM-PAC Score With Stairs : 13 (08/14/23 1000) Caregiver Information Patient Contacts Name Relation Home Work Mobile Teresa Da Silva Adult Child [phone] Asim Perez [phone] Transition of Care Checklist Narrative: SW contact [facility] ([phone]) They are able to accept to back once stable. Reached out to team. Can dc back today. Called [facility]. Set up ride. Per team can sit in All made aware of dc back Dc packet with [facility] faxed ddi to them. At Anticipated Transportation at Discharge: van at 430pm [employer] voucher with [facility] [place] is do not bill patient [phone] Patient/Family Expectations: [facility] Transition Planning Additional Considerations: - Care Management will continue to monitor and assist with discharge planning needs * Care Plan - Laura Bowser RN - 08/14/2023 4:25 AM EDT Clinical Goal(s): patient will be free from falls this shift (08/13/23 1500) Possible barriers to meeting goal(s)/advancing plan of care: Cognitive impairment Stability of the patient: Moderately unstable - medium risk of patient condition declining or worsening Summary regarding today's goal(s): Met: Patient remains free of falls/injury Recommendations: Continue established plan of care. Bed in lowest position, call courtney, personal items within reach. Non skid footwear. Floors free of clutter. Room with adequate lighting. Hourly rounding. Address needs as they arise. * Care Plan - Catalina Brand RN - 08/13/2023 5:16 PM EDT Problem: Activity Intolerance & Impaired Mobility Goal: Patient will maintain optimal mobility & activity level. Outcome: Progressing Problem: Knowledge Deficit Goal: Patient & caregiver will demonstrate understanding. Outcome: Progressing Clinical Goal(s): patient will be free from falls this shift (08/13/23 1500) Possible barriers to meeting goal(s)/advancing plan of care: history TIAs Stability of the patient: Moderately stable - low risk of patient condition declining or worsening Summary regarding today's goal(s): Met: frequent rounding and assessing Recommendations: continue with plan of care as ordered * Ancillary Progress Note - Gillian Cardenas MSW - 08/13/2023 2:06 PM EDT CARE MANAGEMENT - ADULT TRANSITION NOTE [facility] [address] Name: Sofya Perez Location: [facility] G409/A Date: 08/13/2023 Time: 2:07 PM Risk Stratification Risk Stratification Psycho Social / Medical Concerns Identified: Adjustment to illness/injury (08/11/23 1150) Readmission Risk Score: 10.04 (08/13/23 1201) AM-PAC Score With Stairs : 13 (08/13/23 0740) Caregiver Information Patient Contacts Name Relation Home Work Mobile Teresa Da Silva Adult Child [phone] Asim Perez [phone] Transition of Care Checklist Narrative: SW attempted to contact [facility] ([phone]), who report animal control supervisor who reviewsadmissions/returns is not in the building until Monday. SW to follow up on Monday with [facility] for pt'sreturn/review therapy evaluation. SW will continue to follow throughout hospitalization, address pt's evolving needs, and provide psychosocial support. Anticipated Transportation at Discharge: BLS Patient/Family Expectations: [facility] Transition Planning Additional Considerations: - Care Management will continue to monitor and assist with discharge planning needs * Care Plan - Catalina Brand RN - 08/12/2023 6:41 PM EDT Problem: Pain & Impaired Comfort Goal: Patient's pain & discomfort is manageable. Outcome: Progressing Problem: Activity Intolerance & Impaired Mobility Goal: Patient will maintain optimal mobility & activity level. Outcome: Progressing Clinical Goal(s): pateint will be free from falls this shift (08/12/23 1500) Possible barriers to meeting goal(s)/advancing plan of care: patient diagnosis and weakness Stability of the patient: Moderately stable - low risk of patient condition declining or worsening Summary regarding today's goal(s): Met: frequent rounding and checks Recommendations: continue with plan as ordered * Ancillary Progress Note - Gillian Cardenas MSW - 08/12/2023 3:41 PM EDT CARE MANAGEMENT - ADULT TRANSITION NOTE [facility]-[address] [address] Name: Sofya Perez Location: [facility] [id number]/A Date: 08/12/2023 Time: 3:41 PM Risk Stratification Risk Stratification Psycho Social / Medical Concerns Identified: Adjustment to illness/injury (08/11/23 1150) Readmission Risk Score: 11.24 (08/12/23 1201) AM-PAC Score With Stairs : 13 (08/12/23 0739) Caregiver Information Patient Contacts Name Relation Home Work Mobile Teresa Da Silva Adult Child [phone] Asim Perez [phone] Transition of Care Checklist Narrative: SW made aware pt is now medically stable for d/c. SW attempted to contact [facility] ([phone], for Araceli) SW left message for Araceli to discuss pt's return. Anticipated Transportation at Discharge: BLS Patient/Family Expectations: ANAYA Transition Planning Additional Considerations: - Care Management will continue to monitor and assist with discharge planning needs * Care Plan - Rex Evangelista RN - 08/12/2023 4:59 AM EDT Clinical Goal(s): pt.will remain free from falls and comfortable during night (08/11/23 2300) Possible barriers to meeting goal(s)/advancing plan of care: Problem: Pain & Impaired Comfort Goal: Patient's pain & discomfort is manageable. Outcome: Progressing Problem: Actual & Potential for Falls Goal: Patient will remain free of falls. Outcome: Progressing Stability of the patient: Moderately stable - low risk of patient condition declining or worsening Summary regarding today's goal(s): Met: pt.did not fall and rested well last night Recommendations: continue as plan of care. * Ancillary Progress Note - Gillian Cardenas MSW - 08/11/2023 11:55 AM EDT CARE MANAGEMENT - ADULT INITIAL SCREENING [facility] [address] Name: Sofya Perez Location: [facility] A447/A Date: 08/11/2023 Time: 11:55 AM Discussed patient with the interdisciplinary care team. This Bilingual Teacher Aide performed a chart review and met with patient at bedside and spoke with patient's daughter/[facility] to complete admission screen and assessed needs for transition planning. The home health care physician role and services were explained and emot ional support was provided. Chief Complaint: No chief complaint on file. Prior Living Arrangements What was your living situation prior to admission/observation?: At an Assisted Living Center (08/11/23 1150) Living Quarters: Assisted Living (08/11/23 1150) Do you have serious difficulty walking or climbing stairs? (5 years old or older): Yes (08/10/23 100) History of falling: No (08/11/23 08) Prior Level of Functioning Describe the patient's ability prior to admission/observation to perform ADLs: Requires assistance (08/11/23 115) Requires assistance with: Dressing;Toileting;Bathing;Grooming (08/11/231149) Describe the patient's mobility status prior to admission: Patient requires assistance with ambulation (08/10/23 1005) Patient uses assistive device: Yes (08/11/231149) If yes, choose:: Walker (08/11/231149) Caregiver Information Patient Contacts Name Relation Home Work Mobile Teresa Da Silva Adult Child [phone] Asim Perez [phone] Risk Stratification/Psychosocial/Care Gaps Risk Stratification Psycho Social / Medical Concerns Identified: Adjustment to illness/injury (08/11/231149) Readmission Risk Score: 10.28 (08/11/23 0801) AM-PAC Score With Stairs : 14 (08/11/23 0900) Prior to Admission Services Services Prior to Admission [facility] [employer] Services (Services received within the last 30 days with exception, Psych within last two years): Assisted Living (08/11/231149) List All Provider/Service Name: [facility] (08/11/23 115) Agency contacted: Yes (08/11/231149) Spoke with - Comment: Shanice (08/11/231149) [place] Dept[place] of Aging (PDA) Waiver Program: N/A (08/11/231149) [employer] Transportation (Services received within the last 30 days): Family/Friends Personal Vehicle (08/11/23 115) Outpatient Bilingual Teacher Aide: Patient Care Team: Andree Menendez, RN as Mosquito Sprayer (Registered Nurse) Comments: SW met with pt at bedside to complete 515. Pt reported she lives with her daughter/CARLOS/grandchild, in an addition at their house. Pt reports she is independent at baseline, but that family assists with cleaning and making meals. Pt reports she uses a RW at baseline, and that daughter recently got her a w/c. SW spoke with pt's daughter Teresa, via phone to confirm above information, due to documentation stating pt lives at an [facility]. Teresa confirmed pt does in fact live at [facility]. Lesastated she has been there since last December and uses a rolling walker at baseline. Teresa reports that she bought pt a w/c due to pt not being able to ambulate some days. JOSAFAT spoke with [facility], who also confirmed what Teresa had stated. [place] reported as of recent, pt has been requiring more assistance with ADLs and some days pt is not able to ambulate. [facility] is willing to accept pt back once pt is medically stable. Patient/Family Expectations: return to [facility] For further screening information, please refer to the Care Management flow document. * Ancillary Progress Note - Stormy Lyon RDN - 08/11/2023 11:13 AM EDT CLINICAL NUTRITION ADULT RISK ASSESSMENT [address] [address] Name: Sofya Perez Location: [facility] A447/A Date: 08/11/2023 Time: 11:14 AM How patient was identified (select 2): Medical record number and Name Sofya Perez is a 83 year old female being assessed for clinical nutrition risk related to ICU LOS. Primary diagnosis: Hemorrhage of brain, nontraumatic, idiopathic pulmonary hemosiderosis. Other pertinent information: No reported issues with appetite. No nausea, vomiting, constipation and diarrhea. Last bowel movement was prior to admission. No issues with chewing or swallowing, natural dentition. Anthropometrics Measurements Admission weight (for dietitians): 63.8 kg Height: 157.5 cm (5' 2") (08/10/23 1000) Weight: 63.8 kg (140 lb 10.5 oz) (08/11/23 0600) BMI: 26.69 (08/10/23 1000) Usual Body Weight or EDW for Dialysis Patients: 63-66 kg Diet: Regular Previously followed diet: Regular Food Allergies/Intolerances: None Oral Nutrition Supplement (ONS): None Pertinent medications/vitamins/minerals/supplements: Colace, Senokot RISK FACTORS: Adult Energy Intake: No significant decrease Interpretation of Weight Change: No recent/significant weight change Skin: Intact NUTRITION RISK CATEGORY: Nutrition Risk Category: Low/Moderate (0-1 factors) Clinical Nutrition Recommendations: Diet: Continue current nutrition plan NUTRITION INTERVENTION/PLAN: Continue current care plan Will follow and adjust nutritional plan as medical condition requires. Please contact for change(s)in patient condition requiring earlier intervention. Stormy Lyon RDN, MURRAYN Clinical Nutrition Services Phone: [phone] [facility] * Ancillary Progress Note - Jennifer Florentino CCC-METAL TECHNICIAN - 08/10/2023 1:31 PM EDT PROGRESS NOTE - Speech-Language Pathology [facility] [address] Name: Sofya Perez Location: [facility] A447/A Date: 08/10/2023 Time: 1:31 PM Patient Status: Inpatient Insurance: Payor: MEDICARE / Plan: MEDICARE A AND B / Product Type: *No Product type* / Patient Age: [age] year old Attempted to see pt this date for ST evaluation. Per discussion w/nsg, pt is NPO pending completion of head CT. Will f/u as pt is available/appropriate, and as able. documented in this encounter Plan of Treatment Upcoming Encounters Date Type Department Care Team (Late st Contact Info) Description 08/18/2023 9:30 AM EDT Office Visit Cardiology, [facility] [address] [place] [id number] Michelle Gallagher CRNP [address] [place] [id number] 10/31/2023 4:00 PM EDT Office Visit Family Practice [facility] [address] [place] [address] Anastasia Reza DO [address] [place] [address] 02/01/2024 10:00 AM EDT Office Visit Neurology Kathryn Burrell [place] [address] [facility] [place] [address] Jeanette Fraire PA-C [address] [place] [address] Scheduled Orders Name Type Priority Associated Diagnoses Orde r Schedule MRI BRAIN W WO CONTRAST Medical Imaging Routine Intraparenchymal hematoma of brain, left, without loss of consciousness, initial encounter (HCC) Expected: 09/13/2023, Expires: 09/09/2024 Health Maintenance Due Date Last Done Comments DIG LEVEL FOR MEDICATION MONITORING YEARLY 07/24/1958 Depression Screening 02/28/2020 02/27/2019 Meningitis B Vaccine (Bexsero/Trumemba) (3 of 4 - Increased Risk Bexsero 2-dose series) 07/16/2020 07/17/2019, 05/15/2019 COVID-19 Vaccine (4 - 2022- season) 2022 01/24/2022, 09/16/2021, 03/22/2021, Additional history exists Albumin/Creatinine Ratio 09/09/2023 09/08/2022, 06/29 CKD PHOS USE SMARTSET 81293 01/14/2024 01/13/2023, 0 07/21/2020 GFR 02/12/2024 08/13/2023, 07/30, 08/11/2023, Additional history exists MENINGOCOCCAL (MENACTRA/MENVEO) (3 - Risk 2-dose series) 07/16/2024 07/17/2019, 05/15/2019 CKD HGB USE SMARTSET 82988 08/09/202408/09, 08/10/2023, 04/11/2023, Additional history exists DXA Scan 07/14/2026 07/15/2019 DTaP,Tdap,and Td Vaccines (3 - Td or Tdap) 10/28/2032 10/28/2022, 05/02/2010 Pneumococcal Vaccine: 65+ Years Completed 07/17/2019, 05/15/2019, 05/02/2019, Additional history exists Zoster Vaccines Completed 10/28/2022, 06/03/2022 Influenza Vaccine (FLU shot) Completed , 02/15/2022, 02/15/2021, Additional history exists GARDASIL-HPV IMMUNIZATION SERIES Aged Out No longer eligible based on patient's age to complete this topic Hepatitis B Aged Out No longer eligi ble based on patient's age to complete this topic documented as of this encounter Medical Devices Not on filedocumented as of this encounter Procedures Procedure Name Priority Date/Time Associated Diagnosis Comments BASIC METABOLIC PANEL Routine 08/13/2023 8:07 AM EDT BASIC METABOLIC PANEL Routine 08/12/2023 6:40 AM EDT BASIC METABOLIC PANEL Routine 08/11/2023 4:24 AM EDT MRI BRAIN W WO CONTRAST STAT 08/10/2023 6:07 PM EDT RADIOLOGY EXAM - CT (IMAGES ONLY, NO REPORT) Routine 08/10/2023 3:04 PM EDT RADIOLOGY EXAM - CT (IMAGES ONLY, NO REPORT) Routine 08/10/2023 3:04 PM EDT RADIOLOGY EXAM - CT (IMAGES ONLY, NO REPORT) Routine 08/10/2023 3:03 PM EDT CBC STAT 08/10/2023 2:[address] HEAD/BRAIN WO CONTRAST STAT 08/10/2023 1:52 PM EDT TEG (THOMROBOELASTOGRAPH ) PANEL Routine 08/10/2023 10:11 AM EDT TEG (THROMBOELASTOGRAPH) , HEPARINASE Routine 08/10/2023 10:11 AM EDT TEG (THROMBOELASTOGRAPH) Routine 08/10/2023 10:11 AM EDT PT INR STAT 08/10/2023 10:11 AM EDT APTT STAT 08/10/2023 10:11 AM EDT CBC STAT 08/10/2023 10:11 AM EDT HC ECG TRACING ONLY Routine 08/10/2023 1 0:07 AM EDT Stroke (HCC) documented in this encounter Results * BASIC METABOLIC PANEL (08/13/2023 8:07 AM EDT) BUN 20 6 - 20 mg/dL 08/13/2023 9:37 AM EDT [facility] Creatinine 0.8 0.5 - 1.0 mg/dL 08/13/2023 9:37 AM EDT [facility] Estimated Glomerular Filtration Rate 77 >=60 mL/min 08/13/2023 9:37 AM EDT [facility] Comment:eGFR is calculated b ased on the CKD-EPI 2020 equation Sodium 139 135 - 146 mmol/L 08/13/2023 9:37 AM EDT [facility] Potassium 4.7 3.5 - 5.1 mmol/L 08/13/2023 9:37 AM EDT [facility] Chloride 106 98 - 107 mmol/L 08/13/2023 9:37 AM EDT [facility] CO2 22 22 - 32 mmol/L 08/13/2023 9:37 AM EDT [facility] Anion Gap 11 7 - 15 mmol/L 08/13/2023 9:37 AM EDT [facility] Glucose 93 70 - 120 mg/dL 08/13/2023 9:37 AM EDT [facility] Calcium 8.5 8.4 - 10.2 mg/dL 08/13/2023 9:37 AM EDT [facility] Blood Venous blood specimen / Unknown Venipuncture / Unknown 08/13/2023 8:07 AM EDT 08/13/2023 8:22 AM EDT Stephen Zuniga MD LAB BLOOD ORDERABLES [facility] [address] [place] [address] * (ABNORMAL) BASIC METABOLIC PANEL (08/12/2023 6:40 AM EDT) BUN 27(H) 6 - 20 mg/dL 08/12/2023 7:16 AM EDT [facility] Creatinine 0.9 0.5 - 1.0 mg/dL 08/12/2023 7:16 AM EDT [facility] Estimated Glomerular Filtration Rate 62 >=60 mL/min 08/12/2023 7:16 AM EDT [facility] Comment:eGFR is calculated b ased on the CKD-EPI 2020 equation Sodium 138 135 - 146 mmol/L 08/12/2023 7:16 AM EDT [facility] Potassium 4.4 3.5 - 5.1 mmol/L 08/12/2023 7:16 AM EDT [facility] Chloride 104 98 - 107 mmol/L 08/12/2023 7:16 AM EDT [facility] CO2 27 22 - 32 mmol/L 08/12/2023 7:16 AM EDT [facility] Anion Gap 7 7 - 15 mmol/L 08/12/2023 7:16 AM EDT [facility] Glucose 108 70 - 120 mg/dL 08/12/2023 7:16 AM EDT [facility] Calcium 8.5 8.4 - 10.2 mg/dL 08/12/2023 7:16 AM EDT LABORATORY C Blood Venous blood specimen / Unknown Venipuncture / Unknown 08/12/2023 6:40 AM EDT 08/12/2023 6:46 AM EDT Stephen Zuniga MD LAB BLOOD ORDERABLES LABORATORY [facility] [address] [place] [address] * (ABNORMAL) BASIC METABOLIC PANEL (08/11/2023 4:24 AM EDT) BUN 21(H) 6 - 20 mg/dL 08/11/2023 5:18 AM EDT [facility] Creatinine 0.9 0.5 - 1.0 mg/dL 08/11/2023 5:18 AM EDT [facility] Estimated Glomerular Filtration Rate 63 >=60 mL/min 08/11/2023 5:18 AM EDT [facility] Comment:eGFR is calculated b ased on the CKD-EPI 2020 equation Sodium 140 135 - 146 mmol/L 08/11/2023 5:18 AM EDT [facility] Potassium 4.3 3.5 - 5.1 mmol/L 08/11/2023 5:18 AM EDT [facility] Chloride 104 98 - 107 mmol/L 08/11/2023 5:18 AM EDT [facility] CO2 29 22 - 32 mmol/L 08/11/2023 5:18 AM EDT [facility] Anion Gap 7 7 - 15 mmol/L 08/11/2023 5:18 AM EDT [facility] Glucose 86 70 - 120 mg/dL 08/11/2023 5:18 AM EDT [facility] Calcium 8.5 8.4 - 10.2 mg/dL 08/11/2023 5:18 AM EDT [facility] Blood Venous blood specimen / Unknown Venipuncture / Unknown 08/11/2023 4:24 AM EDT 08/11/2023 4:45 AM EDT Stephen Zuniga MD LAB BLOOD ORDERABLES LABORATORY [facility] [address] [place] [address] * MRI BRAIN W WO CONTRAST (08/10/2023 6:07 PM EDT) Anatomical Region Laterality Modality Neuro, Head Magnetic Resonan ce 08/10/2023 7:38 PM EDT Impressions 08/10/2023 7:35 PM EDT IMPRESSION: 1. 21 x 25 x 25 mm left posterior frontal/parietal lobe intraparenchymal hemorrhage, with associated mass-effect. 2. Focal lesion with associated susceptibility and minimal enhancement anterior to hemorrhage, nonspecific in etiology. 3. 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 4. 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 5. Patchy/confluent nonspecific cerebral white matter T2/FLAIR hyperintense and nonenhancing foci, compatible with moderate microvascular ischemic changes, greater in extent/number for stated age. This case was submitted to the Radiology Backup Administrative Coordinator (DIRECTOR OF CATH LAB): Significant Abnormal Result. Narrative 08/10/2023 7:35 PM EDT EXAM: BRAIN MR WITHOUT, THEN WITH CONTRAST. 08/10/2023 6:07 pm. HISTORY: IPH. TECHNIQUE: Multiplanar brain MR sequences (both long TE and short TE) both before/after intravenous gadolinium-based contrast administration (please consult [facility] for details). Total MR sequences submitted for review: 17. COMPARISON: HEAD CT WITHOUT CONTRAST dated 08/10/2023; BRAIN MR WITH/WITHOUT CONTRAST dated 05/11/2023. FINDINGS: Motion artifact. 21 x 25 x 25 mm (AP, transverse, craniocaudal) left posterior frontal/parietal lobe intraparenchymal hemorrhage with central T1 hypointense/T2 hyperintense signal and susceptibility (series 16, image 16; series 8, image 6; series 13, image 30). Associated mass-effect. Central diffusion restriction may represent trapped fluid or artifact due to hemorrhage susceptibility. Focal signal abnormality with associated minimal enhancement and susceptibility anterior to hemorrhage, nonspecific in etiology (series 9, 10, and 16, image 15; series 13, image 29) series 21, image 91). Left medial parietal lobe subcentimeter lesion with focal enhancement and associated susceptibility, most consistent with additional cavernous venous malformation (series 9, 10, 16, and 17, image 16; series 13, image 30). 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 Patchy and confluent cerebral white matter T2/FLAIR hyperintense and nonenhancing foci are present, which are nonspecific but compatible with moderate microvascular ischemic changes, and which are greater in extent/number than expected for stated age. Symmetric ventricular/sulcal enlargement, representing chronic volume loss. Otherwise, normal brain parenchymal signal. No additional restricted diffusion or abnormal enhancement. Patent basal cisterns. No abnormal extra-axial fluid collections. Intracranial arterial flow voids are suboptimally evaluated due to slice selection artifact and motion artifact, but are otherwise grossly normal. Grossly unremarkable head soft tissues. Grossly normal bilateral orbits. Grossly normal cranium and skull base. Trace (< 3 mm) bilateral ethmoid air cell mucosal thickening. Included paranasal sinuses are otherwise clear. No bilateral mastoid air cell or middle ear opacification. Procedure Note Jose Riggins MD - 08/10/2023 EXAM: BRAIN MR WITHOUT, THEN WITH CONTRAST. 08/10/2023 6:07 pm. HISTORY: IPH. TECHNIQUE: Multiplanar brain MR sequences (both long TE and short TE) bothbefore/after intravenous gadolinium-based contrast administration (pleaseconsult [facility] for details). Total MR sequences submitted for review:17. COMPARISON: HEAD CT WITHOUT CONTRAST dated 08/10/2023; BRAIN MR WITH/WITHOUT CONTRASTdated 05/11/2023. FINDINGS: Motion artifact. 21 x 25 x 25 mm (AP, transverse, craniocaudal) left posteriorfrontal/parietal lobe intraparenchymal hemorrhage with central C2sfblqrdmxio/T2 hyperintense signal and susceptibility (series 16, image16; series 8, image 6; series 13, image 30). Associated mass-effect.Central diffusion restriction may represent trapped fluid or artifact dueto hemorrhage susceptibility. Focal signal abnormality with associated minimal enhancement andsusceptibility anterior to hemorrhage, nonspecific in etiology (series 9,10, and 16, image 15; series 13, image 29) series 21, image 91). Left medial parietal lobe subcentimeter lesion with focal enhancement andassociated susceptibility, most consistent with additional cavernousvenous malformation (series 9, 10, 16, and 17, image 16; series 13, image30). Bilateral MCA distribution and bilateral cerebellar hemisphere smallremote territorial infarcts. Patchy and confluent cerebral white matterT2/FLAIR hyperintense and nonenhancing foci are present, which arenonspecific but compatible with moderate microvascular ischemic changes,and which are greater in extent/number than expected for stated age.Symmetric ventricular/sulcal enlargement, representing chronic volumeloss. Otherwise, normal brain parenchymal signal. No additionalrestricted diffusion or abnormal enhancement. Patent basal cisterns. No abnormal extra-axial fluid collections.Intracranial arterial flow voids are suboptimally evaluated due to sliceselection artifact and motion artifact, but are otherwise grosslynormal. Grossly unremarkable head soft tissues. Grossly normal bilateral orbits.Grossly normal cranium and skull base. Trace (< 3 mm) bilateral ethmoidair cell mucosal thickening. Included paranasal sinuses are otherwiseclear. No bilateral mastoid air cell or middle ear opacification. IMPRESSION IMPRESSION: 1. 21 x 25 x 25 mm left posterior frontal/parietal lobe intraparenchymalhemorrhage, with associated mass-effect. 2. Focal lesion with associated susceptibility and minimal enhancementanterior to hemorrhage, nonspecific in etiology. 3. Left medial parietal lobe subcentimeter cavernous venousmalformation. 4. Bilateral MCA distribution and bilateral cerebellar hemisphere smallremote territorial infarcts. 5. Patchy/confluent nonspecific cerebral white matter T2/FLAIRhyperintense and nonenhancing foci, compatible with moderate microvascularischemic changes, greater in extent/number for stated age. This case was submitted to the Radiology Backup Administrative Coordinator(DIRECTOR OF CATH LAB): Significant Abnormal Result. Soniya Torres MD RAD MRI-MRA * RADIOLOGY EXAM - CT (IMAGES ONLY, NO REPORT) (08/10/2023 3:04 PM EDT) Narrative Scheduling, Silent - 08/10/2023 3:04 PM EDT This is an imaging study not interpreted or resulted by a [facility] or [facility] contracted radiologist. Satabdi Christel Pulakanti DO RAD CT * RADIOLOGY EXAM - CT (IMAGES ONLY, NO REPORT) (08/10/2023 3:04 PM EDT) Narrative Scheduling, Silent - 08/10/2023 3:04 PM EDT This is an imaging study not interpreted or resulted by a [facility] or [facility] contracted radiologist. Satabdi Christel Pulakanti DO RAD CT * RADIOLOGY EXAM - CT (IMAGES ONLY, NO REPORT) (08/10/2023 3:03 PM EDT) Narrative Scheduling, Silent - 08/10/2023 3:04 PM EDT This is an imaging study not interpreted or resulted by a [facility] or [facility] contracted radiologist. Satabdi Christel Pulakanti DO RAD CT * CBC (08/10/2023 2:13 PM EDT) WBC 4.37 4.00 - 10.80 K/uL 08/10/2023 2:40 PM EDT [facility] RBC 3.86 3.85 - 5.15 M/uL 08/10/2023 2:40 PM EDT [facility] HGB 12.8 12.0 - 15.3 g/dL 08/10/2023 2:40 PM EDT [facility] HCT 39.1 36.0 - 45.2 % 08/10/2023 2:40 PM EDT [facility] MCV 101.3 81.5 - 97.5 fL 08/10/2023 2:40 PM EDT [facility] MCH 33.2 27.0 - 34.0 pg 08/10/2023 2:40 PM EDT [facility] MCHC 32.7 32.0 - 36.0 g/dL 08/10/2023 2:40 PM EDT [facility] RDW 15.9 11.5 - 15.5 % 08/10/2023 2:40 PM EDT [facility] PLT 251 140 - 400 K/uL 08/10/2023 2:40 PM EDT [facility] MPV 10.5 6.6 - 11.1 fL 08/10/2023 2:40 PM EDT LABORATORY GM nRBCs 0 <=0 /100 WBCs 08/10/2023 2:40 PM EDT LABORATORY [facility] Blood Venous blood specimen / Unknown Venipuncture / Unknown 08/10/2023 2:13 PM EDT 08/10/2023 2:28 PM EDT Soniya Torres MD LAB BLOOD ORDERAB LES Performing Organization Address City/State/[facility] Co de Phone Number LABORATORY [facility] [address] [place] [address] * CT HEAD/BRAIN WO CONTRAST (08/10/2023 1:52 PM EDT) Anatomical Region Laterality Modality Head Computed Tomogra phy 08/10/2023 2:39 PM EDT Impressions 08/10/2023 2:37 PM EDT IMPRESSION: Early subacute appearing left frontoparietal intraparenchymal hematoma, grossly matching the size described in the report from CTA head/neck performed at an outside institution on 08/10/2023. Similar degree of previously described surrounding edema and mass effect with approximately 1-2 mm rightward midline shift and flattening of the left lateral ventricle. Potential focus of subarachnoid hemorrhage along the left parieto-occipital fissure sulcus, likely reflecting redistribution of pre-existing blood from the intraparenchymal hematoma. Correlation with prior external imaging is advised to assess for stability of this finding. No other areas suspicious for recent intracranial hemorrhage or acute territorial infarction. Small chronic infarctions involving the right parietal lobe and bilateral cerebellar hemispheres. Chronic microvascular white matter disease and parenchymal volume loss. MR imaging is often more sensitive in the detection of acute or subtle ischemic, inflammatory or neoplastic lesions, and can be considered if there are persistent or unexplained neurologic findings. Narrative 08/10/2023 2:37 PM EDT EXAM: CT HEAD WITHOUT CONTRAST - 08/10/2023 1:52 pm HISTORY: Follow-up of intraparenchymal hemorrhage TECHNIQUE: CT of the head was performed without intravenous contrast. Multiplanar reformats were generated. COMPARISON: Report from external CTA head/neck 08/10/2023, MRI brain 05/11/2023 FINDINGS: Early subacute appearing left posterior frontal/parietal intraparenchymal hematoma measuring 2.4 x 3.0 x 2.3 cm (AP X TV X CC), similar to the size described in a report for CTA head/neck performed at an outside institution on 08/10/2023. Edema surrounding the hematoma with localized mass effect contributing to 1-2 mm rightward midline shift and flattening of the overlying sulci. Punctate high attenuation focus along the left parieto-occipital fissure, likely reflecting a small amount of redistributed subarachnoid hemorrhage related to the intraparenchymal hematoma (series 5, image 31). No other areas suspicious for recent intracranial hemorrhage or acute territorial infarction. Areas of encephalomalacia/gliosis related to small chronic right MCA territory infarctions within the right frontal and high parietal lobes. Scattered small chronic infarctions within the bilateral cerebellar hemispheres. Patchy areas of low attenuation throughout the periventricular, subcortical, and deep white matter which are nonspecific but likely related to chronic microvascular disease. Flattening along the body of the left lateral ventricle related to the hematoma and surrounding edema.. Diffuse parenchymal volume loss with proportionate ventricular and sulcal prominence. No hydrocephalus. No extra-axial fluid collections. Intracranial atherosclerotic calcifications. Mild mucosal thickening scattered throughout the paranasal sinuses and ethmoid air cells. The mastoid air cells are clear. Orbits are unremarkable. No calvarial fracture. Procedure Note Lev Alexander MD - 08/10/2023 EXAM: CT HEAD WITHOUT CONTRAST - 08/10/2023 1:52 pm HISTORY: Follow-up of intraparenchymal hemorrhage TECHNIQUE: CT of the head was performed without intravenous contrast. Multiplanarreformats were generated. COMPARISON: Report from external CTA head/neck 08/10/2023, MRI brain 05/11/2023 FINDINGS: Early subacute appearing left posterior frontal/parietal intraparenchymalhematoma measuring 2.4 x 3.0 x 2.3 cm (AP X TV X CC), similar to the sizedescribed in a report for CTA head/neck performed at an outsideinstitution on 08/10/2023. Edema surrounding the hematoma with localizedmass effect contributing to 1-2 mm rightward midline shift and flatteningof the overlying sulci. Punctate high attenuation focus along the left parieto-occipital fissure,likely reflecting a small amount of redistributed subarachnoid hemorrhagerelated to the intraparenchymal hematoma (series 5, image 31). No other areas suspicious for recent intracranial hemorrhage or acuteterritorial infarction. Areas of encephalomalacia/gliosis related tosmall chronic right MCA territory infarctions within the right frontal andhigh parietal lobes. Scattered small chronic infarctions within thebilateral cerebellar hemispheres. Patchy areas of low attenuationthroughout the periventricular, subcortical, and deep white matter whichare nonspecific but likely related to chronic microvascular disease. Flattening along the body of the left lateral ventricle related to thehematoma and surrounding edema.. Diffuse parenchymal volume loss withproportionate ventricular and sulcal prominence. No hydrocephalus. Noextra-axial fluid collections. Intracranial atheroscleroticcalcifications. Mild mucosal thickening scattered throughout the paranasal sinuses andethmoid air cells. The mastoid air cells are clear. Orbits areunremarkable. No calvarial fracture. IMPRESSION IMPRESSION: Early subacute appearing left frontoparietal intraparenchymal hematoma,grossly matching the size described in the report from CTA head/neckperformed at an outside institution on 08/10/2023. Similar degree ofpreviously described surrounding edema and mass effect with approximately1-2 mm rightward midline shift and flattening of the left lateralventricle. Potential focus of subarachnoid hemorrhage along the leftparieto-occipital fissure sulcus, likely reflecting redistribution ofpre-existing blood from the intraparenchymal hematoma. Correlation withprior external imaging is advised to assess for stability of thisfinding. No other areas suspicious for recent intracranial hemorrhage or acuteterritorial infarction. Small chronic infarctions involving the rightparietal lobe and bilateral cerebellar hemispheres. Chronic microvascularwhite matter disease and parenchymal volume loss. MR imaging is often more sensitive in the detection of acute or subtleischemic, inflammatory or neoplastic lesions, and can be considered ifthere are persistent or unexplained neurologic findings. Soniya Torres MD RAD CT * TEG (THROMBOELASTOGRAPH), HEPARINASE (08/10/2023 10:11 AM EDT) Reaction Time 6.8 2.5 - 8.3 minutes 08/10/2023 11:46 AM EDT [facility] Kinetics Time 1.7 0.5 - 3.7 minutes 08/10/2023 11:46 AM EDT [facility] Alpha Angle 67.1 46.8 - 78.4 degrees 08/10/2023 11:46 AM EDT LABORATORY C Maximum Amplitude 67.8 50.6 - 72.5 mm 08/10/2023 11:46 AM EDT [facility] Coagulation Index 0.5 -3.0 - 3.0 08/10/2023 11:46 AM EDT [facility] Percent Lysis 30 0.6 0.0 - 7.5 % 024 11:46 AM EDT [facility] Comment:This is an appended report. These results have been appended to a previously preliminary verified report. Blood Venous blood specimen / Unknown Venipuncture / Unknown 08/10/2023 10:11 AM EDT 08/10/2023 10:26 AM EDT Soniya Torres MD LAB BLOOD ORDERAB LES [facility] [address] [place] [address] * TEG (THROMBOELASTOGRAPH) (08/10/2023 10:11 AM EDT) Reaction Time 6.6 2.5 - 8.3 minutes 08/10/2023 11:46 AM EDT LABORATORY [facility] Kinetics Time 1.8 0.5 - 3.7 minutes 08/10/2023 11:46 AM EDT LABORATORY [facility] Alpha Angle 66.3 46.8 - 78.4 degrees 08/10/2023 11:46 AM EDT LABORATORY [facility] Maximum Amplitude 69.5 50.6 - 72.5 mm 08/10/2023 11:46 AM EDT LABORATORY [facility] Coagulation Index 0.8 -3.0 - 3.0 08/10/2023 11:46 AM EDT LABORATORY [facility] Percent Lysis 30 0.3 0.0 - 7.5 % 024 11:46 AM EDT LABORATORY [facility] Comment:This is an appended report. These results have been appended to a previously preliminary verified report. Blood Venous blood specimen / Unknown Venipuncture / Unknown 08/10/2023 10:11 AM EDT 08/10/2023 10:26 AM EDT Narrative LABORATORY [facility] - 08/10/2023 11:46 AM EDT If R time > 20 minutes and no clot formed suggesting hypocoagulable state or interfering substance (anticoagulation). Consider resubmitting a new sample and/or checking PT/INR, aPTT, fibrinogen, and platelet count. Soniya Torres MD LAB BLOOD ORDERAB LES LABORATORY [facility] [address] [place] [address] * APTT (08/10/2023 10:11 AM EDT) aPTT 29 21 - 38 seconds 08/10/2023 10:50 AM EDT LABORATORY [facility] Blood Venous blood specimen / Unknown Venipuncture / Unknown 08/10/2023 10:11 AM EDT 08/10/2023 10:26 AM EDT Narrative LABORATORY [facility] - 08/10/2023 10:50 AM EDT Anticoagulation may affect testing. Refer to [employer] Test Catalog for a list of effects. Soniya Torres MD LAB BLOOD ORDERAB LES Performing Organization Address [facility] Co de Phone Number LABORATORY [facility] [address] [place] [address] * PT INR (08/10/2023 10:11 AM EDT) Prothrombin Time 14.8 11.6 - 15.2 seconds 08/10/2023 10:49 AM EDT [facility] INR 1.2 0.8 - 1.2 08/10/2023 10:49 AM EDT LABORATORY [facility] Blood Venous blood specimen / Unknown Venipuncture / Unknown 08/10/2023 10:11 AM EDT 08/10/2023 10:26 AM EDT Narrative LABORATORY [facility] - 08/10/2023 10:49 AM EDT Warfarin Therapy INR: 2.0-3.0 conventional anticoagulation INR: 2.5-3.5 high intensity anticoagulation Soniya Torres MD LAB BLOOD ORDERAB LES Performing Organization Address [facility] Co de Phone Number LABORATORY [facility] [address] [place] [address] * CBC (08/10/2023 10:11 AM EDT) WBC 4.72 4.00 - 10.80 K/uL 08/10/2023 10:43 AM EDT [facility] RBC 3.78 3.85 - 5.15 M/uL 08/10/2023 10:43 AM EDT [facility] HGB 12.5 12.0 - 15.3 g/dL 08/10/2023 10:43 AM EDT [facility] HCT 38.3 36.0 - 45.2 % 08/10/2023 10:43 AM EDT [facility] MCV 101.3 81.5 - 97.5 fL 08/10/2023 10:43 AM EDT [facility] MCH 33.1 27.0 - 34.0 pg 08/10/2023 10:43 AM EDT [facility] MCHC 32.6 32.0 - 36.0 g/dL 08/10/2023 10:43 AM EDT [facility] RDW 16.0 11.5 - 15.5 % 08/10/2023 10:43 AM EDT LABORATORY GM PLT 270 140 - 400 K/uL 08/10/2023 10:43 AM EDT LABORATORY [facility] MPV 10.6 6.6 - 11.1 fL 08/10/2023 10:43 AM EDT [facility] nRBCs 0 <=0 /100 WBCs 08/10/2023 10:43 AM EDT [facility] Blood Venous blood specimen / Unknown Venipuncture / Unknown 08/10/2023 10:11 AM EDT 08/10/2023 10:26 AM EDT Soniya Torres MD LAB BLOOD ORDERAB LES LABORATORY [facility] [address] [place] [address] * EKG (08/10/2023 10:07 AM EDT) 08/10/2023 10:0 7 AM EDT Narrative Procedure Note Chuck Mcnally, - 08/10/2023 10:07 AM EDT REASON FOR STUDY: Stroke ([facility]) CONCLUSIONS: Atrial fibrillation Ventricular Rate: 82 QRS Duration: 80 QT/QTc: 370/432 ms P-R-T Deane: 0 : -11 : -27 degrees Soniya Torres MD EKG [facility] documented in this encounter Visit Diagnoses Diagnosis Intracranial hemorrhage (HCC)- Primary Unspecified intracranial hemorrhage 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 Stroke (HCC) Unspecified cerebral artery occlusion with cerebral infarction Intraparenchymal hematoma of brain, left, without loss of consciousness, initial encounter ([facility]) Abnormal CT of the head Nonspecific (abnormal) findings on radiological and other examination of skull and head Right-sided sensory deficit present Other general symptoms Chronic anticoagulation Long-term (current) use of anticoagulants 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 Anastrozole (Arimidex) tab 1 mg 1 mg, Oral, Daily(AM), First dose on Mon08/11/23 at 0900, Until Discontinued Given 08/14/2023 9:28 AM EDT 1 mg Given 08/13/2023 8:43 AM EDT 1 mg Given 08/12/2023 9:25 AM EDT 1 mg aspirin chew tab 81 mg 81 mg, Oral, Daily(AM), First dose on Mon08/14/23 at 1215, Until Discontinued Given 08/14/2023 11:41 AM EDT 81 mg carbidopa-levodopa 25-100 mg per tab (Sinemet) 0.5 Tablet 0.5 Tablet, Oral, TID(AM/NOON/HS), First dose on Mon08/10/23 at 2200, Until Discontinued Given 08/14/2023 11:41 AM EDT 0.5 Tablets Given 08/14/2023 5:19 AM EDT 0.5 Tablets Given 08/13/2023 9:50 PM EDT 0.5 Tablets chlorHEXIDINE (Periogard) 0.12 % oral rinse 15 mL 15 mL, Oral mucosal membrane, BID (799,1999), First dose on Mon08/10/23 at 2000, Until Discontinued, Include oral/gum/tooth brushing with medication. Use prepackaged oral kit suction tooth brush if available. Given 08/14/2023 9:18 AM EDT 15 mL Given 08/13/2023 9:56 PM EDT 15 mL Given 08/13/2023 8:44 AM EDT 15 mL Digoxin (Lanoxin) tab 125 mcg 125 mcg, Oral, MWF, First dose on Mon08/11/23 at 0900, Until Discontinued, Hold For HR Less than 60 and notify service if dose is held Given 08/14/2023 9:28 AM EDT 125 mcg Given 08/11/2023 8:04 AM EDT 125 mcg Docusate Sodium (Colace) cap 100 mg 100 mg, Oral, BID (.AM/PM), First dose on Mon08/10/23 at 2100, Until Discontinued, For oral administration ONLY, if route of administration is other than oral and alternative product must be ordered. Given 08/14/2023 9:18 AM EDT 100 mg Given 08/13/2023 9:50 PM EDT 100 mg Given 08/13/2023 8:43 AM EDT 100 mg gadobutrol (Gadavist) inj 7 mL 7 mL, Intravenous, ONCE, On Mon08/10/23 at 1845, For 1 dose, Radiology Medication Routing (Non-IR) Given 08/10/2023 5:58 PM EDT 7 mL hEParin inj 5,000 Units 5,000 Units, Subcutaneous, Q8H, First dose on Mon08/11/23 at 1400, Until Discontinued Given 08/14/2023 5:20 AM EDT 5,000 Units Abdomen Right Lower Given 08/13/2023 9:50 PM EDT 5,000 Units A bdomen Right Lower Given 08/13/2023 2:46 PM EDT 5,000 Units A bdomen Right Upper labetalol (Trandate) inj 10 mg 10 mg, Intravenous, Q15 MIN PRN Other, SBP>140 and HR>60, Starting on Mon08/10/23 at 1014, Until Mon08/14/23 at 2214 levETIRAcetam (Keppra) 500 mg in 100 mL ivpb *LOCKED DOSE* 500 mg, IV Piggyback, BID (.AM/PM), 14 doses, First dose (after last modification) on Mon08/10/23 at 1330, Last dose on Mon08/16/23 at 2100, at 600 mL/hr Administer over 10 Minutes New Bag 08/11/2023 8:00 AM EDT 500 mg 600 mL/hr New Bag 08/10/2023 9:21 PM EDT 500 mg 600 mL/hr New Bag 08/10/2023 2:28 PM EDT 500 mg 600 mL/hr levETIRAcetam (Keppra) tab 500 mg 500 mg, Oral, BID (.AM/PM), First dose on Mon08/11/23 at 2100, Last dose on Mon08/16/23 at 2100, For 11 doses Given 08/14/2023 9:18 AM EDT 500 mg Given 08/13/2023 9:50 PM EDT 500 mg Given 08/13/2023 8:43 AM EDT 500 mg metoprolol succinate XL (toPROL XL) tab 50 mg 50 mg, Oral, Daily(AM), First dose on Mon08/11/23 at 0900, Until Discontinued, Hold for HR less than 60 or SBP below 100 and notify service if dose is held This med should NOT be Crushed or Chewed. Given 08/14/2023 9:18 AM EDT 50 mg Given 08/13/2023 8:43 AM EDT 50 mg Given 08/12/2023 9:29 AM EDT 50 mg Oral Hygiene: Mouth Swab with dentifrice Oral, Q4H LIMITED (00;04;12;16), First dose on Mon08/10/23 at 1200, Until Discontinued, To be used with 1.5% hydrogen peroxide solution or 0.05% cetylpyridium chloride oral rinse Given 08/14/2023 10:30 AM EDT 1 Kit Given 08/14/2023 4:00 AM EDT Given 08/14/2023 12:00 AM EDT Pravastatin Sodium TABS 80 mg 80 mg, Oral, Daily(AM), First dose on Mon08/11/23 at 0900, Until Discontinued Given 08/14/2023 9:28 AM EDT 80 mg Given 08/13/2023 8:43 AM EDT 80 mg Given 08/12/2023 9:25 AM EDT 80 mg senna (Senokot) 1 Tablet 1 Tablet, Oral, BID (.AM/PM), First dose on Mon08/10/23 at 2100, Until Discontinued Given 08/14/2023 9:18 AM EDT 1 Ta blet Given 08/13/2023 9:50 PM EDT 1 Tablet Given 08/13/2023 8:43 AM EDT 1 Tablet documented in this encounter Active and Recently Administered Medications Times are shown in EDT. Scheduled Medication Order 08/12/2023 08/13/2023 08/14/2023 Anastrozole (Arimidex) tab 1 mg 1 mg, Oral, Daily(AM), First dose on Mon08/11/23 at 0900, Until Discontinued 0925 (Given - Provider: Catalina Brand RN) 0843 (Given - Provider: Catalina Brand RN) 0928 (Given - Provider: Gillian Delaney RN) aspirin chew tab 81 mg 81 mg, Oral, Daily(AM), First dose on Mon08/14/23 at 1215, Until Discontinued 1141 (Given - Provider: Gillian Delaney RN) carbidopa-levodopa 25-100 mg per tab (Sinemet) 0.5 Tablet 0.5 Tablet, Oral, TID(AM/NOON/HS), First dose on Mon08/10/23 at 2200, Until Discontinued 0540 (Given - Provider: Rex Evangelista RN)09 (Given - Provider: Catalina Bradn RN)2118 (Given - Provider: Laura Bowser RN) 08 (Given - Provider: Catalina Brand RN)131 (Given - Provider: Catalina Brand RN)215 (Given - Provider: Laura Bowser RN) 0519 (Given - Provider: Laura Bowser RN)1141 (Given - Provider: Gillian Delaney RN) chlorHEXIDINE (Periogard) 0.12 % oral rinse 15 mL 15 mL, Oral mucosal membrane, BID (), First dose on Mon08/10/23 at 2000, Until Discontinued, Include oral/gum/tooth brushing with medication. Use prepackaged oral kit suction tooth brush if available. 09 (Given - Provider: Catalina Brand RN)2118 (Given - Provider: Laura Bowser RN) 08 (Given - Provider: Catalina Brand RN)215 (Given - Provider: Laura Bowser RN) 0918 (Given - Provider: Gillian Delaney RN) Digoxin (Lanoxin) tab 125 mcg 125 mcg, Oral, MWF, First dose on Mon08/11/23 at 0900, Until Discontinued, Hold For HR Less than 60 and notify service if dose is held 09 (Given - Provider: Gillian Delaney, FARTUN) Docusate Sodium (Colace) cap 100 mg 100 mg, Oral, BID (.AM/PM), First dose on Mon08/10/23 at 2100, Until Discontinued, For oral administration ONLY, if route of administration is other than oral and alternative product must be ordered. 09 (Given - Provider: Catalina Brand RN)2118 (Given - Provider: Laura Bowser RN) 842 (Given - Provider: Catalina Brand RN)2149 (Given - Provider: Laura Bowser RN) 917 (Given - Provider: Gillian Delaney RN) hEParin inj 5,000 Units 5,000 Units, Subcutaneous, Q8H, First dose on Mon08/11/23 at 1400, Until Discontinued 0540 (Given - Provider: Rex Evangelista RN)1450 (Given - Provider: Catalina Brand RN)2118 (Given - Provider: Laura Bowser RN) 0630 (Given - Provider: Alina Vargas RN)1446 (Given - Provider: Catalina Brand RN)2149 (Given - Provider: Laura Bowser RN) 0520 (Given - Provider: Laura Bowser RN)1400 (Not Given - Provider: Gillian Delaney RN - Reason: Refused-Notify Provider) levETIRAcetam (Keppra) tab 500 mg 500 mg, Oral, BID (.AM/PM), First dose on Mon08/11/23 at 2100, Last dose on Mon08/16/23 at 2100, For 11 doses 09 (Given - Provider: Catalina Brand RN)2118 (Given - Provider: Laura Bowser RN) 08 (Given - Provider: Catalina Brand RN)2149 (Given - Provider: Laura Bowser RN) 09 (Given - Provider: Gillian Delaney RN) metoprolol succinate XL (toPROL XL) tab 50 mg 50 mg, Oral, Daily(AM), First dose on Mon08/11/23 at 0900, Until Discontinued, Hold for HR less than 60 or SBP below 100 and notify service if dose is held This med should NOT be Crushed or Chewed. 928 (Given - Provider: Catalina Brand RN) 08 (Given - Provider: Catalina Brand RN) 917 (Given - Provider: Gillian Delaney, FARTUN) Oral Hygiene: Mouth Swab with dentifrice Oral, Q4H LIMITED (00;04;12;16), First dose on Mon08/10/23 at 1200, Until Discontinued, To be used with 1.5% hydrogen peroxide solution or 0.05% cetylpyridium chloride oral rinse 0052 (Given - Provider: Rex Evangelista RN)0427 (Given - Provider: Rex Evangelista RN)1200 (Given - Provider: Catalina Brand RN)1600 (Given - Provider: Catalina Brand RN) 0000 (Not Given - Provider: Laura Bowser RN - Reason: Other- Please add reason in Comments - Comment: Patient asleep)0400 (Given - Provider: Laura Bowser RN)1200 (Given - Provider: Catalina Brand RN)1600 (Given - Provider: Catalina Brand RN) 0000 (Given - Provider: Laura Bowser RN)0400 (Given - Provider: Laura Bowser RN)1030 (Given - Provider: Gillian Delaney RN)1600 (Not Given - Provider: Gillian Delaney RN - Reason: Parameter(s) Not Met) Pravastatin Sodium TABS 80 mg 80 mg, Oral, Daily(AM), First dose on Mon08/11/23 at 0900, Until Discontinued 924 (Given - Provider: Catalina Brand RN) 842 (Given - Provider: Catalina Brand RN) 927 (Given - Provider: Gillian Delaney, FARTUN) senna (Senokot) 1 Tablet 1 Tablet, Oral, BID (.AM/PM), First dose on Mon08/10/23 at 2100, Until Discontinued 928 (Given - Provider: Catalina Brand RN)2118 (Given - Provider: Laura Bowser RN) 0843 (Given - Provider: Catalina Brand RN)2150 (Given - Provider: Laura Bowser RN) 0918 (Given - Provider: Gillian Delaney RN) PRN Medication Order 08/12/2023 08/13/2023 08/14/2023 Acetaminophen (Tylenol) supp 650 mg 650 mg, Rectal, Q4H PRN Pain, Mild, Pain, Moderate, Other, Temp greater than 38 c, Starting on Rachele 08/10/23 at 0949, Until 08/14/23 at 2214, For 10 doses, If must split suppository cut it lengthwise. labetalol (Trandate) inj 10 mg 10 mg, Intravenous, Q15 MIN PRN Other, SBP>140 and HR>60, Starting on Rachele 08/10/23 at 1014, Until 08/14/23 at 2214 documented in this encounter Advance Directives Documents on File Type Date Recorded Patient Import/Export Analyst Expl anation Power of Neurophysiologist 07/13/2021 Teresa Aguilera in POWER OF BOOK SHELVER Latest Code Status on File Code Status Date Activated Date Inactivated Comments Full Code 08/10/2023 9:52 AM 08/14/2023 10:19 PM This order reflects the patients wishes and were consensually agreed upon. Question Answer Comments Discussion of Advance Directives occurred with: Not Discussed due to patient's condition Healthcare Agents on File Name Relationship Healthcare Agent Relationship Communication Teresa Da Silva Adult Child Health Care Agen t (per Health Care Power of Neurophysiologist document) [email or web address] Asim Manrique Alternate Health Care Agent (per Health Care Power of Neurophysiologist document) Care Teams Turbine Subassembler Relationship Specialty Start Date End Date Anastasia Reza DO [address] [place] [address] PCP - General Family Medicine 07/22/16 documented as of this encounter
--- OUTSIDE RECORDS SUMMARY | 2023-08-18 21:29 | External Medical Summary ---
Author Name Unknown Address Unknown Organization [id number]:LABORATORY [facility] [place] - [address] [place] [address] Laboratory Report Ordering Provider Test Date Status CELESTINOROHITSRIDHAR 08/12/2023 06:40:00 Final Observation Date Value Abnormality Reference (Units ) Status BUN 08/12/2023 06:40:00 27 Above high normal 6-20 (mg/dL) Final Creatinine 08/12/2023 06:40:00 0.9 0.5-1.0 (mg/dL) Final Glomerular filtration rate/1.73 sq M.predicted [Volume Rate/Area] in Serum, Plasma or Blood by Creatinine-based formula (CKD-EPI) 08/12/2023 06:40:00 62 >=60 (mL/min) Final eGFR is calculated based on the CKD-EPI 2020 equation Sodium 08/12/2023 06:40:00 138 135-146 (m mol/L) Final Potassium 08/12/2023 06:40:00 4.4 3.5-5.1 (m mol/L) Final Cl 08/12/2023 06:40:00 104 98-107 (mm ol/L) Final CO2 08/12/2023 06:40:00 27 22-32 (mmo l/L) Final Anion gap 08/12/2023 06:40:00 7 7-15 (mmol /L) Final Glucose 08/12/2023 06:40:00 108 70-120 (mg /dL) Final Calcium 08/12/2023 06:40:00 8.5 8.4-10.2 ( mg/dL) Final Performing Location LABORATORY [facility] [place] - [address] [place] [address]
--- OUTSIDE RECORDS SUMMARY | 2023-08-18 21:30 | External Medical Summary ---
Author Name Unknown Address Unknown Organization [id number]:[facility]ORY [facility] [place] [address] [place] [address] Laboratory Report Ordering Provider Test Date Status DANIEL MAGUIRE 08/11/2023 04:24:00 Final Observation Date Value Abnormality Reference (Units ) Status BUN 08/11/2023 04:24:00 21 Above high normal 6-20 (mg/dL) Final Creatinine 08/11/2023 04:24:00 0.9 0.5-1.0 (mg/dL) Final Glomerular filtration rate/1.73 sq M.predicted [Volume Rate/Area] in Serum, Plasma or Blood by Creatinine-based formula (CKD-EPI) 08/11/2023 04:24:00 63 >=60 (mL/min) Final eGFR is calculated based on the CKD-EPI 2020 equation Sodium 08/11/2023 04:24:00 140 135-146 (m mol/L) Final Potassium 08/11/2023 04:24:00 4.3 3.5-5.1 (m mol/L) Final Cl 08/11/2023 04:24:00 104 98-107 (mm ol/L) Final CO2 08/11/2023 04:24:00 29 22-32 (mmo l/L) Final Anion gap 08/11/2023 04:24:00 7 7-15 (mmol /L) Final Glucose 08/11/2023 04:24:00 86 70-120 (mg /dL) Final Calcium 08/11/2023 04:24:00 8.5 8.4-10.2 ( mg/dL) Final Performing Location LABORATORY [facility] [place] - [address] [place] [address]
--- OUTSIDE RECORDS SUMMARY | 2023-08-18 21:30 | External Medical Summary ---
Author Name Unknown Address Unknown Organization [id number]:LABORATORY [facility] [place] [address] [place] [address] Laboratory Report Ordering Provider Test Date Status DANIEL MAGUIRE 08/10/2023 10:11:00 Final Warfarin Therapy
INR: 2 .0-3.0 conventional anticoagulation
INR: 2.5- 3.5 high intensity anticoagulation Observation Date Value Abnormality Reference (Units ) Status PT 08/10/2023 10:11:00 14.8 11.6-15.2 (seconds) Final INR 08/10/2023 10:11:00 1.2 0.8-1.2 Final Performing Location LABORATORY [facility] [place] [address] [place] [address]
--- OUTSIDE RECORDS SUMMARY | 2023-08-18 21:30 | External Medical Summary ---
Author Name Unknown Address Unknown Organization [id number]:LABORATORY [facility] [place] - [address] [place] [address] Laboratory Report Ordering Provider Test Date Status DANIEL MAGUIRE 08/10/2023 14:13:00 Final Observation Date Value Abnormality Reference (Units ) Status WBC, Total 08/10/2023 14:13:00 4.37 4.00-10.80 (K/uL) Final RBC 08/10/2023 14:13:00 3.86 3.85-5.15 (M/uL) Final Hemoglobin 08/10/2023 14:13:00 12.8 12.0-15.3 (g/dL) Final HCT 08/10/2023 14:13:00 39.1 36.0-45.2 (%) Final MCV 08/10/2023 14:13:00 101.3 81.5-97.5 (fL) Final MCH 08/10/2023 14:13:00 33.2 27.0-34.0 (pg) Final MCHC 08/10/2023 14:13:00 32.7 32.0-36.0 (g/dL) Final RDW 08/10/2023 14:13:00 15.9 11.5-15.5 (%) Final Platelets 08/10/2023 14:13:00 251 140-400 (K/uL) Final MPV 08/10/2023 14:13:00 10.5 6.6-11.1 (fL) Final Nucleated erythrocytes/100 leukocytes [Ratio] in Blood by Automated count 08/10/2023 14:13:00 0 <=0 (/100 WBCs) Final Performing Location LABORATORY [facility] - [address] [place] [address]
--- OUTSIDE RECORDS SUMMARY | 2023-08-18 21:30 | External Medical Summary ---
Author Name Unknown Address Unknown Organization [id number]:LABORATORY [facility] [place] - [address] [facility] [address] Laboratory Report Ordering Provider Test Date Status DANIEL MAGUIRE 08/10/2023 10:11:00 Final If R time > 20 minutes and n o clot formed suggesting hypocoagulable state or interfering substance (anticoagulation). Consider resubmitting a new sample and/or checking PT/INR, aPTT, fibrinogen, and platelet count. Observation Date Value Abnormality Reference (Units ) Status Clot formation [Time] in Blood by Thromboelastography 08/10/2023 10:11:00 6.6 2.5-8.3 (minutes) Final Clot strength in Blood by Thromboelastography 08/10/2023 10:11:00 1.8 0.5-3.7 (minutes) Final Clot angle in Blood by Thromboelastography 08/10/2023 10:11:00 66.3 46.8-78.4 (degrees) Final Maximum clot firmness [Length] in Blood by Thromboelastography 08/10/2023 10:11:00 69.5 50.6-72.5 (mm) Final Coagulation index in Blood b y Thromboelastography 08/10/2023 10:11:00 0.8 -3.0-3.0 Final Clot Lysis [Length fraction] in Blood by Thromboelastography --30 minutes post maximum clot amplitude 08/10/2023 10:11:00 0.3 0.0-7.5 (%) Final This is an appended report. These results have been appended to a previously preliminary verified report. Performing Location LABORATORY [facility] - [address] [facility] [address]
--- OUTSIDE RECORDS SUMMARY | 2023-08-18 21:30 | External Medical Summary | Summary of Care ---
Author Name Unknown Organization [facility] Address [address] [place] [address] Phone [phone] Care Team Providers Care Director Product Development Name Role Phone Anastasia Reza DO Primary Care Provider [phone] Encounter Details Date Type Department Care Team (Late st Contact Info) Description 08/11/2023 Population Health External Data Unspecified Department Allergies Active Allergy Reactions Criticality Noted Date Comments Chlorpheniramine 07/22/2016 Anxious Chlor Trimeton Ezetimibe High 04/05/2022 Other reaction(s): Weakness documented as of this encounter (statuses as of 08/11/2023) Medications Medication Sig Dispensed Refills Start Date End Date Status Calcium Carb-Cholecalcifero l 600-200 MG-UNIT Oral Tablet Take 1 Tablet by mouth in the morning. (0800). 0 Suspended Multiple Vitamin (MULTI-VITAMIN DAILY) Tablet Take 1 Tablet by mouth in the morning. (0800). 0 Suspended Anastrozole 1 MG Oral Tablet (Arimidex) Take 1 Tablet by mouth in the morning. (0800). 0 07/29/2020 Suspended Magnesium Hydroxide 400 MG/5ML Oral Suspension Take 30 mL by mouth daily as needed for Constipation. 0 Suspended Alendronate Sodium 70 MG Oral Tablet (Fosamax) Take 1 Tablet by mouth once a day on Monday only. (0700) 0 07/08/2021 Suspended Aspirin EC 81 MG Oral Tablet Delayed Release Take 1 Tablet by mouth in the morning. 31 Tablet 5 04/21/2022 Suspended Additional Information Melatonin 3 MG Oral Tablet Take 1 Tablet by mouth at bedtime as needed for Sleep. 0 Suspended Digoxin 125 MCG Oral Tablet (Lanoxin)Indication s:Persistent atrial fibrillation (HCC),HTN, goal below 130/80,Heart failure, diastolic, with acute decompensation (HCC),HFrEF (heart failure with reduced ejection fraction) (HCC) Take one three days per wek 40 Tablet 3 01/11/2023 Suspended Additional Information Patient taking differently: 125 mcg Oral MWF, (No instructions reported), Informant: Transferring Facility Documents, Reported on 08/10/2023 Metoprolol Succinate ER 50 MG Oral Tablet Extended Release 24 Hour (toPROL XL)Indications:Pers istent atrial fibrillation (HCC),HTN, goal below 130/80,Heart failure, diastolic, with acute decompensation (HCC),HFrEF (heart failure with reduced ejection fraction) (HCC) Take 1 Tablet by mouth in the morning. 90 Tablet 3 01/11/2023 Suspended Additional Information Carbidopa-Levodopa 25-100 MG Oral Tablet (Sinemet) Take 0.5 Tablets by mouth in the morning and 0.5 Tablets at noon and 0.5 Tablets before bedtime. 135 Tablet 3 01/16/2023 Suspended Additional Information oxygen IN GAS Use 2 L/min(Oxygen) as directed at bedtime. 0 Suspended Docusate Sodium 100 MG Oral Capsule (Colace) Take 1 Capsule by mouth 2 times a day. () 0 Suspended Sennosides 8.6 MG Oral Tablet (Senokot) Take 1 Tablet by mouth 2 times a day. () 0 12/20/2022 Suspended D3 2000 50 MCG (1999 UT) Oral Capsule (Cholecalciferol) Take 1 Capsule by mouth in the morning. (0800). 0 Suspended Pravastatin Sodium 80 MG Oral TabletIndications:D yslipidemia, goal LDL below 70 Take 1 Tablet by mouth in the morning. 90 Tablet 3 04/28/2023 Suspended Additional Information Apixaban 5 MG Oral Tablet (Eliquis)Indication s:Persistent atrial fibrillation (HCC) Take 1 Tablet by mouth 2 times a day. () 0 07/03/2023 Suspended Furosemide 40 MG Oral Tablet (Lasix)Indications: Persistent atrial fibrillation (HCC),HTN, goal below 130/80,Heart failure, diastolic, with acute decompensation (HCC),HFrEF (heart failure with reduced ejection fraction) (HCC) Take 1.5 Tablets by mouth once a day on Monday, Monday, and Monday only. And 40 mg all other days (0800) 0 07/03/2023 Suspended Spironolactone 25 MG Oral Tablet (Aldactone)Indicati ons:Persistent atrial fibrillation (HCC),HTN, goal below 130/80,Heart failure, diastolic, with acute decompensation (HCC),HFrEF (heart failure with reduced ejection fraction) (HCC) Take 0.5 Tablets by mouth in the morning. (0800). 0 07/03/2023 Suspended documented as of this encounter (statuses as of 08/11/2023) Active Problems Problem Noted Date Diagnosed Date Abnormal CT of the head 08/10/2023 Right-sided sensory deficit present 08/10/2023 Chronic anticoagulation [...] Overview: found at left parotid, following with [facility] cancer center History of CVA (cerebrovascular accident) 2016 documented as of this encounter (statuses as of 08/11/2023) Resolved Problems Problem Noted Date Diagnosed Date Resolved Date Prediabetes 04/11/2022 05/12/2022 Overview: Per Prediabetes protocol Persistent atrial fibrillation 07/13/2021 04/27/2022 Stage 3a chronic kidney disease 03/09/2020 09/10/2020 Overview: Per CKD protocol 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 08/16/2019 CKD (chronic kidney disease) stage 3, GFR 30-59 ml/min 06/20/2019 03/12/2020 Overview: Per CKD protocol Pancreatic mass 05/02/2019 08/16/2019 documented as of this encounter (statuses as of 08/11/2023) Immunizations Name Administration Dates Next Due COVID-19 mRNA, LNP-s, No Pre serve, 2-Dose Series (Moderna) 07/04/2020,05/30/2020 COVID-19, mRNA, LNP-s, PF, B ooster, 100mcg/0.5mg (Moderna) 09/16/2021,03/22/2021 Covid-19, Mrna, Lnp-s, Pf, B ivalent, 30 Mcg, IM, 12 yrs and above ([place]) 01/24/2022 HIB PRP-OMP, 3 dose (Pedvax) 05/15/2019 [...] on file documented as of this encounter Functional Status Functional Status Response [...] No 08/10/2023 documented as of this encounter Plan of Treatment Upcoming Encounters Date Type Department Care Team (Late st Contact Info) Description 08/18/2023 9:30 AM EDT Office Visit Cardiology, [address] [place] [address] Michelle Gallagher CRNP [address] [place] [address] 10/31/2023 4:00 PM EDT Office Visit Family Practice [facility] [address] [place] [address] Anastasia Reza DO [address] [place] [address] 02/01/2024 10:00 AM EDT Office Visit Neurology [facility] [address] [place] [address] Jeanette Fraire PA-C [address] [place] [address] Health Maintenance Due Date Last Done Comments [facility] LEVEL FOR MEDICATION MONITORING YEARLY 07/24/1958 Depression Screening 02/28/2020 02/27/2019 Meningitis B Vaccine (Bexsero/Trumemba) (3 of 4 - Increased Risk Bexsero 2-dose series) 07/16/2020 07/17/2019, 05/15/2019 COVID-19 Vaccine (4 - 2022- season) 2022 01/24/2022, 09/16/2021, 03/22/2021, Additional history exists Albumin/Creatinine Ratio 09/09/2023 09/08/2022, 06/29 CKD PHOS USE SMARTSET 94774 01/14/2024 01/13/2023, 0 07/21/2020 GFR 02/10/2024 08/11/2023, 03/0 09/2023, 06/24/2023, Additional history exists MENINGOCOCCAL (MENACTRA/MENVEO) (3 - Risk 2-dose series) 07/16/2024 07/17/2019, 05/15/2019 CKD HGB USE SMARTSET 15738 08/09/202408/09, 08/10/2023, 04/11/2023, Additional history exists DXA [...] Not on filedocumented as of this encounter Advance Directives Documents on File Type Date Recorded Patient Travel Money Advisor Expl anation Power of Duplicate Maker 07/13/2021 Teresa Da SilvaMichaebryanna [place] in POWER OF EARLY CHILDHOOD TEACHER ASSISTANT Latest Code Status on File Code Status Date Activated Date Inactivated Comments Full Code 08/10/2023 9:52 AM This order reflects the patients wishes and were consensually agreed upon. Question Answer Comments Discussion of Advance Directives occurred with: Not Discussed due to patient's condition Healthcare Agents on File Name Relationship Healthcare Agent Relationship Communication Teresa Da Silva Adult Child Health Care Agen t (per Health Care Power of Duplicate Maker document) [email or web address] Asim Manrique Alternate Health Care Agent (per Health Care Power of Duplicate Maker document) Care Teams Director Product Development Relationship Specialty Start Date End Date Anastasia Reza DO [address] [place] [address] PCP - General Family Medicine 07/22/16 documented as of this encounter
--- OUTSIDE RECORDS SUMMARY | 2023-08-18 21:30 | External Medical Summary ---
Author Name Unknown Address Unknown Organization K01:LABORATORY [address] [facility] [place] [address] Laboratory Report Ordering Provider Test Date Status DANIEL MAGUIRE 08/10/2023 10:11:00 Final Observation Date Value Abnormality Reference (Units ) Status Clot formation [Time] in Blood by Thromboelastography 08/10/2023 10:11:00 6.8 2.5-8.3 (minutes) Final Clot strength in Blood by Thromboelastography 08/10/2023 10:11:00 1.7 0.5-3.7 (minutes) Final Clot angle in Blood by Thromboelastography 08/10/2023 10:11:00 67.1 46.8-78.4 (degrees) Final Maximum clot firmness [Length] in Blood by Thromboelastography 08/10/2023 10:11:00 67.8 50.6-72.5 (mm) Final Coagulation index in Blood b y Thromboelastography 08/10/2023 10:11:00 0.5 -3.0-3.0 Final Clot Lysis [Length fraction] in Blood by Thromboelastography --30 minutes post maximum clot amplitude 08/10/2023 10:11:00 0.6 0.0-7.5 (%) Final This is an appended report. These results have been appended to a previously preliminary verified report. Performing Location LAB[facility] [facility] [place] [address] [facility] [place] [address]
--- OUTSIDE RECORDS SUMMARY | 2023-08-18 21:30 | External Medical Summary ---
Author Name Unknown Address Unknown Organization K01:LABORATORY [facility] [place] - [facility] [address] [place] [address] Laboratory Report Ordering Provider Test Date Status DANIEL MAGUIRE 08/10/2023 10:11:00 Final Observation Date Value Abnormality Reference (Units ) Status WBC, Total 08/10/2023 10:11:00 4.72 4.00-10.80 (K/uL) Final RBC 08/10/2023 10:11:00 3.78 3.85-5.15 (M/uL) Final Hemoglobin 08/10/2023 10:11:00 12.5 12.0-15.3 (g/dL) Final HCT 08/10/2023 10:11:00 38.3 36.0-45.2 (%) Final MCV 08/10/2023 10:11:00 101.3 81.5-97.5 (fL) Final MCH 08/10/2023 10:11:00 33.1 27.0-34.0 (pg) Final MCHC 08/10/2023 10:11:00 32.6 32.0-36.0 (g/dL) Final RDW 08/10/2023 10:11:00 16.0 11.5-15.5 (%) Final Platelets 08/10/2023 10:11:00 270 140-400 (K/uL) Final MPV 08/10/2023 10:11:00 10.6 6.6-11.1 (fL) Final Nucleated erythrocytes/100 leukocytes [Ratio] in Blood by Automated count 08/10/2023 10:11:00 0 <=0 (/100 WBCs) Final Performing Location LABORATORY [facility] - [address] [place] [address]
--- OUTSIDE RECORDS SUMMARY | 2023-08-18 21:30 | External Medical Summary ---
Author Name Unknown Address Unknown Organization K01:[place] [facility] [place] [address] [place] [address] Laboratory Report Ordering Provider Test Date Status TINGDANIEL CASTELLANOS 08/10/2023 10:11:00 Final Anticoagulation may affect t esting. Refer to [employer] Test Catalog for a list of effects. Observation Date Value Abnormality Reference (Units ) Status aPTT panel - Platelet poor plasma 08/10/2023 10:11:00 29 21-38 (seconds) Final Performing Location [place] [facility] [place] [address] [place] [address]
--- OUTSIDE RECORDS SUMMARY | 2023-08-18 23:25 | External Medical Summary | Summary of Care ---
Author Name Unknown Organization [facility] Address [address] [place] [address] Phone [phone] Care Team Providers Care Aquarist Name Role Phone Anastasia Reza DO Primary Care Provider [phone] Reason for Visit * Reason Onset Date Comments Appointment 08/17/2023 Encounter Details Date Type Department Care Team (Late st Contact Info) Description 08/17/2023 Telephone Neurology [facility] [place] [address] [place] [address] Jeanette Fraire PA-C [address] [facility] [place] [address] Appointment Allergies Active Allergy Reactions Criticality Noted Date Comments Chlorpheniramine 07/22/2016 Anxious Chlor Trimeton Ezetimibe High 04/05/2022 Other reaction(s): Weakness documented as of this encounter (statuses as of 08/17/2023) Medications Medication Sig Dispensed Refills Start Date End Date Status Calcium Carb-Cholecalciferol 600-200 MG-UNIT Oral Tablet Take 1 Tablet by mouth in the morning. (0800). 0 Active Multiple Vitamin (MULTI-VITAMIN DAILY) Tablet Take 1 Tablet by mouth in the morning. (0800). 0 Active Anastrozole 1 MG Oral Tablet (Arimidex) Take 1 Tablet by mouth in the morning. (0800). 0 07/29/2020 Active Magnesium Hydroxide 400 MG/5ML Oral Suspension Take 30 mL by mouth daily as needed for Constipation. 0 Active Alendronate Sodium 70 MG Oral Tablet (Fosamax) Take 1 Tablet by mouth once a day on Monday only. (0700) 0 07/08/2021 Active Aspirin EC 81 MG Oral Tablet Delayed Release Take 1 Tablet by mouth in the morning. 31 Tablet 5 04/21/2022 Active Melatonin 3 MG Oral Tablet Take 1 Tablet by mouth at bedtime as needed for Sleep. 0 Active Digoxin 125 MCG Oral Tablet (Lanoxin)Indications :Persistent atrial fibrillation (HCC),HTN, goal below 130/80,Heart failure, diastolic, with acute decompensation (HCC),HFrEF (heart failure with reduced ejection fraction) (HCC) Take one three days per wek 40 Tablet 3 01/11/2023 Active Additional Information Patient taking differently: 125 mcg Oral MWF, (No instructions reported), Informant: Transferring Facility Documents, Reported on 08/10/2023 Metoprolol Succinate ER 50 MG Oral Tablet Extended Release 24 Hour (toPROL XL)Indications:Persi stent atrial fibrillation (HCC),HTN, goal below 130/80,Heart failure, diastolic, with acute decompensation (HCC),HFrEF (heart failure with reduced ejection fraction) (HCC) Take 1 Tablet by mouth in the morning. 90 Tablet 3 01/11/2023 Active Carbidopa-Levodopa 25-100 MG Oral Tablet (Sinemet) Take 0.5 Tablets by mouth in the morning and 0.5 Tablets at noon and 0.5 Tablets before bedtime. 135 Tablet 3 01/16/2023 Active oxygen IN GAS Use 2 L/min(Oxygen) as directed at bedtime. 0 Active Docusate Sodium 100 MG Oral Capsule (Colace) Take 1 Capsule by mouth 2 times a day. () 0 Active Sennosides 8.6 MG Oral Tablet (Senokot) Take 1 Tablet by mouth 2 times a day. () 0 12/20/2022 Active D3 2000 50 MCG (1999 UT) Oral Capsule (Cholecalciferol) Take 1 Capsule by mouth in the morning. (0800). 0 Active Pravastatin Sodium 80 MG Oral TabletIndications:Dy slipidemia, goal LDL below 70 Take 1 Tablet by mouth in the morning. 90 Tablet 3 04/28/2023 Active Furosemide 40 MG Oral Tablet (Lasix)Indications:P ersistent atrial fibrillation (HCC),HTN, goal below 130/80,Heart failure, diastolic, with acute decompensation (HCC),HFrEF (heart failure with reduced ejection fraction) (HCC) Take 1.5 Tablets by mouth once a day on Monday, Monday, and Monday only. And 40 mg all other days (0800) 0 07/03/2023 Active Spironolactone 25 MG Oral Tablet (Aldactone)Indicatio ns:Persistent atrial fibrillation (HCC),HTN, goal below 130/80,Heart failure, diastolic, with acute decompensation (HCC),HFrEF (heart failure with reduced ejection fraction) (HCC) Take 0.5 Tablets by mouth in the morning. (0800). 0 07/03/2023 Active documented as of this encounter (statuses as of 08/17/2023) Active Problems Problem Noted Date Diagnosed Date [...] Overview: found at left parotid, following with [facility] cancer center History of CVA (cerebrovascular accident) 2016 documented as of this encounter (statuses as of 08/17/2023) Resolved Problems Problem Noted Date Diagnosed Date [...] as of this encounter (statuses as of 08/17/2023) Immunizations Name Administration Dates Next Due COVID-19 mRNA, LNP-s, No Pre serve, 2-Dose Series (Moderna) 07/04/2020,05/30/2020 COVID-19, mRNA, LNP-s, PF, B ooster, 100mcg/0.5mg (Moderna) 09/16/2021,03/22/2021 Covid-19, Mrna, Lnp-s, Pf, B ivalent, 30 Mcg, IM, 12 yrs and above ([place]) 01/24/2022 HIB PRP-OMP, 3 dose (Pedvax) 05/15/2019 [...] No 08/10/2023 documented as of this encounter Miscellaneous Notes * Telephone Encounter - Isela Patel OSA - 08/17/2023 1:36 PM EDT scheduled * Telephone Encounter - Andree Menendez RN - 08/17/2023 1:08 PM EDT Patient discharged from [facility] on 08/13 and needs a 4-8 week follow up with neurology. (Was admitted on08/09 for intracranial hemorrhage) Scheduling team, can you please assist? Thank you documented in this encounter Plan of Treatment Upcoming Encounters Date Type Department Care Team (Late st Contact Info) Description 08/18/2023 9:30 AM EDT Office Visit Cardiology, [facility] [address] [place] [address] Michelle Gallagher CRNP [address] [place] [address] 08/23/2023 1:40 PM EDT Office Visit [facility] [address] [place] [address] Anastasia Reza, DO [address] [place] [address] 09/19/2023 11:20 AM EDT Office Visit Neurology [facility] [place] [address] [place] [address] Jeanette Fraire PA-C [address] [place] [address] 10/31/2023 4:00 PM EDT Office Visit [facility] [address] [place] [address] Anastasia Reza, DO [address] [place] [address] 02/01/2024 10:00 AM EDT Office Visit Neurology [facility] [place] [address] [facility] [place] [address] Jeanette Fraire PA-C [address] [place] [address] Health Maintenance Due Date Last Done Comments DIG LEVEL FOR MEDICATION MONITORING YEARLY 07/24/1958 Depression Screening 02/28/2020 02/27/2019 Meningitis B Vaccine (Bexsero/Trumemba) (3 of 4 - Increased Risk Bexsero 2-dose series) 07/16/2020 07/17/2019, 05/15/2019 COVID-19 Vaccine (4 - season) 2022 01/24/2022, 09/16/2021, 03/22/2021, Additional history exists Albumin/Creatinine Ratio 09/09/2023 09/08/2022, 06/29 CKD PHOS USE SMARTSET 28009 01/14/2024 01/13/2023, 0 07/21/2020 GFR 02/12/2024 08/13/2023, 07/30, 08/11/2023, Additional history exists MENINGOCOCCAL (MENACTRA/MENVEO) (3 - Risk 2-dose series) 07/16/2024 07/17/2019, 05/15/2019 CKD HGB USE SMARTSET 01004 08/09/202408/09, 08/10/2023, 04/11/2023, Additional history exists DXA [...] Documents on File Type Date Recorded Patient Cotton Broker Expl anation Power of Case Folder 07/13/2021 Teresa AvinashMichao [place] in POWER OF RESOURCE DEVELOPMENT MANAGER Latest Code Status on File Code Status [...] Agen t (per Health Care Power of Case Folder document) [email or web address] Asim Manrique Alternate Health Care Agent (per Health Care Power of Case Folder document) Care Teams Aquarist Relationship Specialty Start Date End Date Anastasia Reza DO [address] [place] [address] PCP - General Family Medicine 07/22/16 documented as of this encounter
--- NOTE | 2023-08-19 05:56 | Electrocardiogram Report ---
Test Reason : Blood Pressure : / mmHG Vent. Rate : 074 BPM Atrial Rate : 000 BPM P-R Int : 000 ms QRS Dur : 086 ms QT Int : 368 ms P-R-T Axes : 000 -22 -32 degrees QTc Int : 408 ms Atrial fibrillation with premature ventricular or aberrantly conducted complexes Abnormal ECG When compared with ECG of 10-AUG-2023 03:57, Nonspecific T wave abnormality, improved in Lateral leads Confirmed by Jose L Lima ([id number]) on 08/19/2023 5:56:13 AM Referred By: REFERRED SELF Confirmed By:Arturo Lima
[2023-08-19 06:49] LABS: BUN Creatinine Ratio 30.3 (10-20); Calcium 8.9 mg/dl (8.6-10.3); Creatinine Clr Calc Pharmacy 49.2 ml/min; Est GFR (African American) 84.7 ml/min; Est GFR (Non-African American) 73.1 ml/min; Potassium 4.7 mmol/L (3.5-5.1)
[2023-08-19 06:51] LABS: Hematocrit (blood only) 39.6 % (37.0-47.0); Hemoglobin 13.1 g/dl (12.0-16.0); Mean Corpuscular Hemoglobin 32.7 pg (25.0-34.0); Mean Corpuscular Hgb Conc 33.1 g/dL (32.0-36.0); Mean Corpuscular Volume 98.8 fL (80.0-100.0); Mean Platelet Volume 10.8 fL (9.4-12.4); Platelet Count 222 K/uL (130-400); RDW Coefficient of Variation 15.9 % (11.5-14.5); RDW Standard Deviation 58.1 fL (36.4-46.3); Red Blood Count 4.01 M/uL (4.20-5.40)
--- NOTE | 2023-08-19 14:12 | Hospitalist Progress Note ---
Date of Service August 19, 2023 Assessment & Plan (1) Fall from standing: (2) Ambulatory dysfunction: (3) Hyperkalemia: (4) Chronic diastolic heart failure: (5) Chronic a-fib: Plan 83-year-old female with complex issues which include chronic atrial fibrillation, low normal LV systolic function with diastolic heart failure previously on chronic anticoagulation, [id number] 2 score 7. Recently presented with neurologic changes and found to have an intraparenchymal hemorrh age. Evaluated by neurosurgery at [facility], chronic anticoagulation discontinued. Now suffered mechanical fall with resultant mild head contusion. Mechanical fall/Ambulatory dysfunction- Imagings reviewed. CT head shows continued decrease in size of the subacute intraparenchymal hemorrhage within the left frontal lobe. Denies any issues currently. PT OT Eval Chronic atrial fibrillation- rate controlled on BB, digoxin. Anticoag on hold due to recent intracranial hemorrhage per neuro. To be considered after OP follow up and repeat MRI Hyperkalemia- resolved HTN- BP in 90s during my encounter. Monitor Chronic diastolic CHF with mod-sev TR- Currently euvolemic MARGARET on nighttime oxygen H/o tremors on carbidopa DVT ppx- Chemoppx on hold due to recent intracranial bleed, SCDs Dispo- Pending PT Eval Time spent- 35 mins Admission and Anticipated Discharge Date Admission Date: August 18, 2023 Subjective Patient was seen and examined at bedside. She feels fine. Still awaiting PT. No pain, fever, chills, N/V, SOB. Review of Systems Review of Systems: All systems reviewed & are unremarkable except as noted in Subjective Physical Exam Physical Exam: General: Elderly female, Sitting in chair, not in distress, on room air HEENT: EOMI, CARLA, MMM Chest: Fair breath sounds bilaterally CVS: Irregular Abdomen: Soft, non tender, not distended, normal bowel sounds Neuro: Awake, alert, oriented, conversing well, non focal Extremities: No edema Results & Data Results & Data Vital Signs (Past 12 Hours) Vital Signs Temp Pulse Pulse Pulse Resp BP Pulse Ox 08/19/23 11:40 36.4 C L 62 16 93/61 L 96 08/19/23 07:45 36.9 C 85 16 135/94 92 08/19/23 07:23 81 08/19/23 03:03 36.8 C 72 18 106/70 94 O2 Del Method 04/20/24 11:40 Room Air 08/19/23 07:45 Room Air 08/19/23 07:23 08/19/23 03:03 Room Air Laboratory Results Short CBC 08/19/23 Range/Units 06:02 WBC 5.90 (4.8-10.8) K/ul Hgb 13.1 (12.0-16.0) g/dl Hct 39.6 (37.0-47.0) % Plt Count 222 (130-400) K/uL BMP 08/19/23 06:02 Sodium 136 Potassium 4.7 Chloride 104 Carbon Dioxide 26 BUN 23 Creatinine 0.76 Glucose 105 H Calcium 8.9
--- NOTE | 2023-08-20 09:53 | Cardiology Progress Note ---
Date of Service August 20, 2023 Assessment & Plan (1) Intraparenchymal hemorrhage of brain: (2) Ambulatory dysfunction: (3) Chronic a-fib: Plan Patient admitted after recurrent fall at nursing facility was admitted and transferred to [facility] 1 week ago for IPH. Eliquis on hold. Per neurology, ASA and statin resumed and recommended. Head CT x2 since admission demonstrate continued improvement in IPH. No increase in bleed. Chronic afib noted. Rates controlled. Continue metoprolol and low dose digoxin. No anticoagulation for now. She was mildly hyperkalemic on arrival Clinically also appeared volume depleted. Lisinopril placed on hold. Possibly resume lower dose as needed for BP. Furosemide on hold. Per neurology, patient will need f/u MRI in 1 month. At that time future anticoagulation can be discussed. However given her age, recurrent falls, fraility - resuming anticoagulation would be high risk. However she had [id number] score of 7. Case discussed with Dr. Schafer. Further recommendations pending assessment and evaluation. I spent a total of 60 minutes on the date of service in preparation, delivery, and documentation of the care provided to this patient, excluding any time spent in the performance of separately billed services. Samantha Garcia PA-C Department of Cardiology, [facility] This chart was completed in part utilizing Speech Voice Recognition Software. Grammatical errors, random word insertions, pronoun errors, and incomplete se ntences are an occasional consequence of this system due to software limitations, ambient noise, and hardware issues. Any formal questions or concerns about the content, text, or information contained within the body of this dictation should be directly addressed to the provider for clarification. Admission and Anticipated Discharge Date Admission Date: August 18, 2023 Subjective Patient did not sleep well overnight. Remains short of breath. Supplemental oxgyen weaned from 5LNC->3LNC. Review of Systems Review of Systems: All systems reviewed & are unremarkable except as noted in HPI & below Physical Exam Constitutional: WD/WN, vitals as above + thin Neck: trachea midline, no thyromegaly Respiratory: normal respiratory effort Auscultation: + diminished lung sounds; no crackles and no rales Neurologic: PERRL, EOMI, accommodation nl, no face palsy, no dysarthria Results & Data Vital Signs (Past 12 Hours) Vital Signs Temp Pulse Pulse Resp BP Pulse Ox O2 Del Method 08/20/23 07:44 36.8 C 82 16 126/88 93 Room Air 08/20/23 06:59 75 08/20/23 03:08 36.8 C 71 18 121/73 95 Room Air 08/19/23 23:52 36.3 C L 70 18 116/83 90 Room Air 08/19/23 21:55 66
--- NOTE | 2023-08-20 15:19 | Hospitalist Progress Note ---
Date of Service August 20, 2023 Assessment & Plan (1) Fall from standing: (2) Ambulatory dysfunction: (3) Hyperkalemia: (4) Chronic diastolic heart failure: (5) Chronic a-fib: Plan 83-year-old female with complex issues which include chronic atrial fibrillation, low normal LV systolic function with diastolic heart failure previously on chronic anticoagulation, [id number] 2 score 7. Recently presented with neurologic changes and found to have an intraparenchymal hemorrh age. Evaluated by neurosurgery at [facility], chronic anticoagulation discontinued. Now suffered mechanical fall with resultant mild head contusion. Mechanical fall/Ambulatory dysfunction- Imagings reviewed. CT head shows continued decrease in size of the subacute intraparenchymal hemorrhage within the left frontal lobe. Denies any issues currently. PT OT Eval Chronic atrial fibrillation- rate controlled on BB, digoxin. Anticoag on hold due to recent intracranial hemorrhage per neuro. To be considered after OP follow up and repeat MRI Hyperkalemia- resolved HTN- BP soft. Monitor Chronic diastolic CHF with mod-sev TR- Currently euvolemic MARGARET on nighttime oxygen H/o tremors on carbidopa DVT ppx- Chemoppx on hold due to recent intracranial bleed, SCDs Dispo- Pending PT Eval Time spent- 35 mins Admission and Anticipated Discharge Date Admission Date: August 18, 2023 Subjective Patient was seen and examined at bedside. She feels fine. Denies any new issues . Denies pain. Still awaiting physical therapy evaluation. No fever, chills, chest pain or shortness of breath nausea or vomiting. Review of Systems Review of Systems: All systems reviewed & are unremarkable except as noted in Subjective Physical Exam Physical Exam: General: Elderly female, Sitting in chair, not in distress, on room air HEENT: EOMI, CARLA, MMM Chest: Fair breath sounds bilaterally CVS: Irregular Abdomen: Soft, non tender, not distended, normal bowel sounds Neuro: Awake, alert, oriented, conversing well, non focal Extremities: No edema Results & Data Results & Data Vital Signs (Past 12 Hours) Vital Signs Temp Pulse Pulse Resp BP Pulse Ox O2 Del Method 08/20/23 11:19 36.3 C L 65 16 101/71 93 Room Air 08/20/23 07:44 36.8 C 82 16 126/88 93 Room Air 08/20/23 06:59 75
[2023-08-20] MEDS: MELATONIN 3 MG TAB PO PRN (20:14)
[2023-08-21 07:27] LABS: Hematocrit (blood only) 39.7 % (37.0-47.0); Mean Corpuscular Hemoglobin 33.1 pg (25.0-34.0); Mean Corpuscular Hgb Conc 32.7 g/dL (32.0-36.0); Mean Platelet Volume 10.8 fL (9.4-12.4); Platelet Count 157 K/uL (130-400); RDW Coefficient of Variation 16.1 % (11.5-14.5); RDW Standard Deviation 60.5 fL (36.4-46.3); Red Blood Count 3.93 M/uL (4.20-5.40); White Blood Count 5.75 K/ul (4.8-10.8)
[2023-08-21 08:00] LABS: Calcium 8.9 mg/dl (8.6-10.3); Potassium 4.2 mmol/L (3.5-5.1)
[2023-08-21 08:05] LABS: BUN Creatinine Ratio 28.2 (10-20); Creatinine Clr Calc Pharmacy 48.4 ml/min; Est GFR (African American) 82.1 ml/min; Est GFR (Non-African American) 70.8 ml/min
[2023-08-21] MEDS: ACETAMINOPHEN 325 MG TAB PO PRN (08:10)
[2023-08-21 11:15] VITALS: BP 96/62; RESP 14; TEMP 97.5; O2SAT 94
--- NOTE | 2023-08-21 13:11 | Discharge Summary ---
Date of Service August 21, 2023 Admission HPI Per Admitting Provider History obtained from patient and records Medical history significant for chronic diastolic HF (EF 50%, TTE 2021), A. fib currently off Eliquis secondary to recent ICH, hx CVA, PVD, valvular heart disease (mild MR, moderate to severe TR), hypertension, hyperlipidemia/statin intolerance, pulmonary hypertension nocturnal hypoxemia/mild MARGARET on nighttime O2, history of tremors, right breast cancer status post chemoradiation on anastrozole Rx, NHL status post radiation, pancreatic neuroendocrine tumor status post surgery, prediabetes, ambulatory dysfunction. Last [facility] confinement November 2022 for rhabdomyolysis secondary to fall/ambulatory dysfunction. Recent [facility] confinement under Neurology service from 08 09-2023 for left frontoparietal intraparenchymal hemorrhage (CAA versus cavernoma as per note) following [facility] ER transfer. No surgical intervention. Repeat brain MRI recommended after 1 month. Patient instructed to hold Eliquis until further discussion with neurology regarding risks. Home aspirin continued on discharge to [facility] assisted living [facility]. Patient fell backwards after sliding on the floor while trying to get to bathroom at [facility]. She could not wait for help getting to the toilet. Posterior head trauma with transient headache symptoms, no LOC. No chest pain, no SOB. Achy right knee pain from falling. Patient unable to get up. Few hours elapsed before patient found as per report. Patient brought to the ER for evaluation. 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 Exam Per Admitting Provider GENERAL: Slightly uncomfortable, slightly hard of hearing, frail, no respiratory distress SKIN: Normal color, warm HEENT: Bespectacled, pink palpebral conjunctivae, no ptosis, lower lip tremors noted, dry buccal mucosa NECK : Supple, no tenderness CHEST : Decreased breath sounds, no tenderness HEART : Irregular, systolic murmur ABDOMEN: Some distention, nontender EXTREMITIES : Minimal LE swelling, minimal right knee tenderness, no other conspicuous deformities noted NEUROLOGIC : Coherent, no facial asymmetry, mild perioral tremors noted, gait and stance not assessed Principal Diagnosis Fall with ambulatory dysfunction, Mild hyperkalemia Discharge Exam General: Elderly female, Sitting in chair, not in distress, on room air HEENT: EOMI, CARLA, MMM Chest: Fair breath sounds bilaterally CVS: Irregular Abdomen: Soft, non tender, not distended, normal bowel sounds Neuro: Awake, alert, oriented, conversing well, non focal Extremities: No edema Discharge Data Allergies Allergy/AdvReac Type Severity Reaction Status Date / Time ezetimibe AdvReac Intermediate Weakness Verified 05/18/23 14:12 chlorpheniramine AdvReac Mild "Antsy Verified 05/18/23 14:12 [From Chlor-Trimeton] Feeling" Consultations 08/18/23 00:31 ED Decision to Admit Stat 08/18/23 02:15 Consult Cardiology Routine Ordered Studies 08/17/23 20:42 CT head/brain wo con Stat 08/18/23 10:00 CT head/brain wo con Urgent Laboratory Results WBC 5.75 K/ul (4.8-10.8) 08/21/23 06:56 RBC 3.93 M/uL (4.20-5.40) L 08/21/23 06:56 Hgb 13.0 g/dl (12.0-16.0) 08/21/23 06:56 Hct 39.7 % (37.0-47.0) 08/21/23 06:56 MCV 101.0 fL (80.0-100.0) H 08/21/23 06:56 MCH 33.1 pg (25.0-34.0) 08/21/23 06:56 MCHC 32.7 g/dL (32.0-36.0) 08/21/23 06:56 RDW Std Deviation 60.5 fL (36.4-46.3) H 08/21/23 06:56 RDW Coeff of Pablo 16.1 % (11.5-14.5) H 08/21/23 06:56 Plt Count 157 K/uL (130-400) 08/21/23 06:56 MPV 10.8 fL (9.4-12.4) 08/21/23 06:56 Immature Gran % (Auto) 0.6 % 08/18/23 03:59 Neut % (Auto) 58.3 % 08/18/23 03:59 Lymph % (Auto) 25.3 % 08/18/23 03:59 [place] % (Auto) 11.9 % 08/18/23 03:59 Eos % (Auto) 3.3 % 08/18/23 03:59 Baso % (Auto) 0.6 % 08/18/23 03:59 Neut # (Auto) 2.84 K/uL (1.40-6.50) 08/18/23 03:59 Lymph # (Auto) 1.23 K/uL (1.20-3.40) 08/18/23 03:59 [place]ar # (Auto) 0.58 K/uL (0.11-0.59) 08/18/23 03:59 Eos # (Auto) 0.16 K/uL (0.00-0.50) 08/18/23 03:59 Baso # (Auto) 0.03 K/uL (0.00-0.20) 08/18/23 03:59 Immature Gran # (Auto) 0.03 K/uL (0.01-0.20) 08/18/23 03:59 Sodium 136 mmol/L (136-145) 08/21/23 06:56 Potassium 4.2 mmol/L (3.5-5.1) 08/21/23 06:56 Chloride 105 mmol/L (98-107) 08/21/23 06:56 Carbon Dioxide 26 mmol/L (21-32) 08/21/23 06:56 Anion Gap 5 (3-11) 08/21/23 06:56 BUN 22 mg/dl (6-23) 08/21/23 06:56 Creatinine 0.78 mg/dl (0.6-1.2) 08/21/23 06:56 Est Cr Clr Drug Dosing 48.4 ml/min 08/21/23 06:56 Est GFR ( Amer) 82.1 ml/min 08/21/23 06:56 Est GFR (Non-Af Amer) 70.8 ml/min 08/21/23 06:56 BUN/Creatinine Ratio 28.2 (10-20) H 08/21/23 06:56 Glucose 88 mg/dl (70-99(Fasting)) 08/21/23 06:56 POC Glucose 145 mg/dl (70-99) H 08/18/23 04:13 Calcium 8.9 mg/dl (8.6-10.3) 08/21/23 06:56 Magnesium 2.3 mg/dl (1.7-2.4) 08/17/23 23:05 Total Bilirubin 0.6 mg/dl (0.2-1.0) 08/17/23 23:05 AST 28 U/L (13-39) 08/17/23 23:05 ALT 20 U/L (7-52) 08/17/23 23:05 Alkaline Phosphatase 37 U/L (34-104) 08/17/23 23:05 Total Creatine Kinase 62 U/L (26-192) 08/17/23 23:05 Troponin I High Sens 11.9 pg/ml (0-14) 08/17/23 23:05 Total Protein 6.8 gm/dl (6.0-8.3) 08/17/23 23:05 Albumin 3.5 gm/dl (3.4-5.0) 08/17/23 23:05 Globulin 3.3 gm/dl (2.5-4.0) 08/17/23 23:05 Albumin/Globulin Ratio 1.1 (0.9-2) 08/17/23 23:05 Digoxin 0.3 ng/ml (0.8-2.0) L 08/18/23 03:59 Impressions Knee X-Ray 08/17/23 21:15 RIGHT KNEE 2 VIEWS CLINICAL HISTORY: Right knee injury. FINDINGS: AP and crosstable lateral views of the right knee are obtained. No prior studies are available for comparison at the time of dictation. The skeletal structures are heterogeneously osteopenic. No fracture is seen. There is minimal degenerative joint space narrowing. There are patellar enthesophytes. There is no significant joint effusion. Mild soft tissue swelling is seen around the knee. IMPRESSION: No acute bony abnormality is identified. Electronically signed by: Sunil Guardado M.D. 08/17/2023 10:29 PM Chest X-Ray 08/18/23 01:25 XR chest 1V portable CLINICAL HISTORY: hyperkalemia, fall COMPARISON STUDY: Chest CT July 22, 2022. Chest radiograph June 02, 2023. FINDINGS: Lung volumes are normal. Lungs are clear. There is no pneumothorax or pleural effusion. Cardiomegaly is unchanged. Mediastinal contours are normal. There is no evidence for pulmonary edema. IMPRESSION: No acute cardiopulmonary findings. Stable cardiomegaly. ACT 112: Negative or not required by law. Electronically signed by: Anderson Branch M.D. 08/18/2023 6:[address] 08/18/23 10:00 CT OF THE HEAD WITHOUT CONTRAST CLINICAL HISTORY: ffup, head trauma COMPARISON STUDY: Head CT's August 10, 2023 and August 17, 2023. CT DOSE: 547.75 mGy.cm TECHNIQUE: Helical axial images of the head were obtained without IV contrast. Automated exposure control was utilized for the study. A dose lowering technique was utilized adhering to the principles of ALARA. FINDINGS: There has been continued decrease in size of the subacute intraparenchymal hemorrhage within the left frontal lobe. The largest component now measures 1.3 cm, previously 1.5 cm. There is associated vasogenic edema. No new sites of hemorrhage are present. Ventricular system is unremarkable. The basal cisterns are patent. Old infarct within the right parietal lobe and right cerebellar hemisphere are unchanged. There are no calvarial fractures. IMPRESSION: Continued decrease in size of the subacute intraparenchymal hemorrhage within the left frontal lobe. ACT 112: Negative or not required by law. Electronically signed by: Anderson Branch M.D. 08/18/2023 10:50 AM Hospital Course (1) Fall from standing: (2) Ambulatory dysfunction: (3) Hyperkalemia: (4) Chronic diastolic heart failure: (5) Chronic a-fib: Plan 83-year-old female with complex issues which include chronic atrial fibrillation, low normal LV systolic function with diastolic heart failure previously on chronic anticoagulation, [id number] 2 score 7. Recently presented with neurologic changes and found to have an intraparenchymal hemorrhage. Evaluated by neurosurgery at [facility], chronic anticoagulation discontinued. Now suffered mechanical fall with resultant mild head contusion. Mild hyperkalemia on admission which is resolved. Thought to be mild volume depletion on admission and given gentle ivf and diuretics were held throughout the stay. Seen by cardiology. Seen by PT OT and recommended rehab. She is being discharged to SNF for rehab. Mechanical fall/Ambulatory dysfunction- Imaging reviewed. CT head shows continued decrease in size of the subacute intraparenchymal hemorrhage within the left frontal lobe. Denies any issues currently. PT OT recommended rehab. Going to SNF for rehab. Chronic atrial fibrillation- rate controlled on BB, digoxin. Anticoag on hold due to recent intracranial hemorrhage per neuro. To be considered after OP follow up with neuro and repeat MRI. Hyperkalemia- resolved HTN- BP soft. Continue metoprolol Chronic diastolic CHF with mod-sev TR- Currently euvolemic. Given her recurrent falls with recent intracranial bleed and soft BP and concern for volume depletion, it might be reasonable to have diuretics prn rather than scheduled unless she S/S of volume overload when it can be given scheduled. Defer to her PCP/cardiology. MARGARET on nighttime oxygen H/o tremors on carbidopa Total Time Total Time Spent Total Time Spent (In Minutes): 35 Discharge Plan Discharge Items Patient Disposition: Transfer [facility] Reason For Visit: HYPERKALEMIA Discharge Diagnosis: Fall, ambulatory dysfunction, hyperkalemia Activity: Per Instructions section Non-emergency contact: Primary Care Provider, Bank Vault Attendant and Neurologist Call non-emergency contact if: you have any medication questions, your symptoms worsen and your pain is concerning for you Follow-up/Referrals: Jeanette Fraire PA-C [Physician [employer]] - (Date & Time 09/19/2023 11:20 AM Provider Jeanette Fraire PA-C Department Neurology [facility] ) Anastasia Reza DO [Primary Care Provider] - 08/23/23 1:40 pm (Date & Time 08/23/2023 1:40 PM Provider Anastasia Reza DO Department Family [facility] ) Diet: Heart Healthy Addtl Attending Provider Instructions: No new medication changes except holding the diuretics (lasix and aldactone) due to concern for volume depletion and low BP, which can be resumed when that improves or can be given on as needed basis for swelling, weight gain or shortness of breath. Follow up with neuro with repeat MRI brain as previously scheduled Follow up with cardio and family doctor Pending Studies at Discharge: No Stand-Alone Forms: My [employer] Skilled Items Patient informed of condition?: Yes DNR: No Discharge Level of Care: Skilled Communicable Disease: No Discharge Prognosis: Stable Lines: Peripheral IV Urinary Catheter: No Medications and DC Order Prescriptions: Continued anastrozole [Arimidex] 1 mg tablet 1 mg PO DAILY docusate sodium 100 mg capsule 100 mg PO BID pravastatin 80 mg tablet 80 mg PO DAILY multivitamin Tablet 1 tab PO DAILY calcium carbonate-vitamin D3 600 mg(1,500mg) -200 unit Tablet 1 tab PO DAILY metoprolol succinate 100 mg Tablet Extended Release 24 Hr 50 mg PO QAM alendronate [Fosamax] 70 mg Tablet 70 mg PO FR@0900 aspirin 81 mg Tablet,Delayed Release (Dr/Ec) 81 mg PO DAILY digoxin 125 mcg (0.125 mg) tablet 125 mcg PO MOWEFR@0900 melatonin 3 mg Tablet 3 mg PO HS PRN (Reason: Insomnia) sennosides [Senokot] 8.6 mg tablet 8.6 mg PO BID17 carbidopa-levodopa 25-100 mg tablet 0.5 tab PO TID Rx Instructions: morning,noon,bedtime Held spironolactone 25 mg tablet 12.5 mg PO SUMOWETHSA@0900 Hold Instructions: Resume on 08/24/23. Continue to hold until oral intake improves and BP rebounds. Hold for concern for dehydration, poor oral intake or low BP Rx Instructions: take 1/2 tablet 5 days a week furosemide 40 mg tablet 40 mg PO QAM Hold Instructions: Resume on 08/24/23. Continue to hold until oral intake improves and BP rebounds. Hold for concern for dehydration, poor oral intake or low BP Discharge Orders: Discharge Order (Routine); Ordered 08/21/23 Ordered By: Jesse Steele/Other Patient Handouts: Hyperkalemia Dc, Falls Prevent Use Cane Walker, Preventing Falls: Staying Active Admission Data Admit Date/Time: 08/20/23 15:04 Attending Provider: Jesse Hector Admit Provider: Joe Lai Primary Care Provider: Anastasia Reza Other Providers: Joe Lai; Christiana Funes; Kevin Figueredo; Masood Schafer; Lev Castillo; Asim Gray; Dharmesh Gasca; Samantha Garcia; Jeanette Nichols; Jackie Tatum; Christiana Campuzano; Ed Zambrano; Hector Collins; Sheryl Saldivar; Rika Quick; Michelle Gallagher; Frances Ritchie; Denilson Mckenna; Amara Jones Other Interventions: Discharge Summary Assessment (RN) Last Done: 08/21/23 13:36
[2023-08-21 13:39] VITALS: PULSE 72
== END 2023-08-21 15:04 | DRG 91 ==
LOC: ED 19:11 → EDINP 19:11 → 2N 08-18 02:16

== ENCOUNTER 2023-08-24 19:11 | Inpatient (IN) ==
--- NOTE | 2023-08-24 20:03 | Emergency Department Note ---
Impression & Plan Acute CVA (cerebrovascular accident), Internal carotid artery dissection ED Provider Note NAME: FAYE LIND AGE: 83 SEX: F : 1940 ARRIVES VIA: Ambulance INFORMANT: Patient ED PROVIDER(S): Derek Hamilton DO CHIEF COMPLAINT: LUE weakness HPI: Patient is an 83-year-old female with a past medical history of heart failure, subdural, chronic A-fib following a fall several days ago where she was found to have a subdural and was transferred to an outside facility. She notes that around 4 PM today she notes her left arm would not work. She is off her blood thinners due to the brain bleed. Denies any headache. Notes the left lower extremity weakness has been present for past several weeks and waxing and waning for months. Denies any chest pain or shortness of breath. No nausea, vomiting, or diarrhea. No dysuria, urgency, or frequency. No other exacerbating or remitting factors. ADDITIONAL HISTORY OBTAINED: Per HPI Chronic Medical/Social Conditions Affecting Care: Per HPI PAST MEDICAL HISTORY:See Below PAST SURGICAL HISTORY:See Below FAMILY HISTORY:See Below SOCIAL HISTORY:See Below HOME MEDICATIONS:See Below ALLERGIES:See Below VITALS:See Below PHYSICAL EXAMINATION: GENERAL: Sitting up in bed, alert, well appearing, well nourished, no distress, non-toxic EYE EXAM: normal conjunctiva. PERRL and EOM's grossly intact. OROPHARYNX: mucous membranes are moist NECK: supple, no nuchal rigidity, no adenopathy, non-tender LUNGS: Clear to auscultation. Normal chest wall mechanics HEART: no murmurs, S1 normal and S2 normal ABDOMEN: abdomen soft, non-tender, normo-active bowel sounds, no masses, no rebound or guarding. BACK: Back is symmetrical on inspection and there is no deformity, no midline tenderness, no CVA tenderness. SKIN: no rashes and no bruising UPPER EXTREMITIES: upper extremities are grossly normal. LOWER EXTREMITIES: No pitting edema. NEURO EXAM: Normal sensorium, cranial nerves II-XII grossly intact, normal speech, unable to move left upper extremity. No weakness of right upper extremity. Weakness which is equal in bilateral lower extremities. Barely able to flex at the hips. Plantar and dorsiflexion intact. Right leg slightly stronger than left MEDICAL DECISION MAKING: Patient is an female who presents ER for left upper extremity weakness which started around 4 PM tonight. IVs were established blood work was obtained. She was taken emergently to CT and made a stroke alert. This was done in light of the fact that she is not a TNK candidate as she just recently had a subdural earlier this month. CTAs of the head and neck showed a left internal carotid dissection. This was discussed with [facility] and they agree with this finding as well as a favor there is a right MCA stroke which is likely subacute. With this the patient was updated at bedside. Discussed case with the hospitalist patient was admitted for further workup. Neurology suggested aspirin only for the dissection due to the subdural. Please see their note for further details. Case was discussed with the hospitalist for further evaluation management treatment Consults/Care Managements Discussions: Per [facility] Triage Nursing notes reviewed. Limited review of prior medical records performed Vital Signs: reviewed and remarkable for no significant abnormalities Differential diagnosis: Differential Diagnosis includes but is not limited to ischemic Stroke, hemorrhagic stroke, bells palsy, mass, neoplasm, migraine headache, seizure, subarachnoid hemorrhage, TIA, and transient global amnesia. ER treatment provided: See below Diagnostics interpreted by me include EKG and cardiac monitoring as listed below: -Cardiac Monitoring: An order was placed for continuous cardiac monitoring. The monitor shows a rate of 70 with AFIB rhythm. -ECG: A-fib rate of 79 Normal axis No PVCs Nonspecific ST wave changes QTc 417 -Laboratory studies:Interpreted by me as stated above in MDM and shown below. Imaging studies: Xrays: As interpreted by me: Portable AP upright 1 view of the chest shows no focal infiltrate CTs show: CT images of the head and neck as described to be of show a left internal carotid dissection and a likely right MCA distribution stroke Procedures:none Critical Care: I have personally spent [] minutes of critical care time in the direct management of this patient. This includes bedside care, interpretation of diagnostic studies, and testing, discussion with consultants, patient, and family members, and other required patient management activities. This [] minutes is in excess of all separately billable procedures. Past Med/Surg History Medical History Combined systolic and diastolic heart failure Breast cancer, right 03/09/2020 Follicular lymphoma grade 3a Atrial fibrillation Neuroendocrine carcinoma of pancreas CVA (cerebral vascular accident) Cardiomyopathy Ventricular ectopy TIA (transient ischemic attack) 2009 - No Deficits Arthritis Follicular lymphoma Diagnosed 01/28/19 - Left Parotid Gland Surgical History S/P lumpectomy, right breast With SLN biopsy Dr. Matthew on 04/22/2020 Post-splenectomy History of superficial parotidectomy 01/28/19 - with facial nerve dissection and preservation History of tonsillectomy as a child History of colonoscopy 2017 History of hip replacement, total Left - 2007, Right - 2008 Family History Father , Passed age 88 of Kidney Cancer No problems noted. Mother , Passed age 83 of Alzheimers Disease No problems noted. Brother No problems noted. Sister ALL (acute lymphoblastic leukemia), Onset Age: 66 Now in remission Daughter No problems noted. Son No problems noted. 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 Feels Safe at Home: Yes Childhood Exposure to Second-Hand Smoke: Yes (Father Smoked in Home ) caffeine: Yes (4 cups of coffee/day ) Dental Care, Regularly: Yes Assistive Devices: Glasses, Walker and Wheelchair Allergies Allergies Allergy/AdvReac Type Severity Reaction Status Date / Time ezetimibe AdvReac Intermediate Weakness Verified 08/24/23 21:41 chlorpheniramine AdvReac Mild "Antsy Verified 08/24/23 21:41 [From Chlor-Trimeton] Feeling" Home Meds Home Medications Medication Instructions Recorded Confirmed calcium carbonate 600 mg-vitamin 1 tab PO DAILY 04/23/19 08/24/23 D3 5 mcg (200 unit) tablet multivitamin 1 tab PO DAILY 04/23/19 08/24/23 anastrozole 1 mg tablet (Arimidex) 1 mg PO DAILY 11/04/20 08/24/23 alendronate 70 mg tablet (Fosamax) 70 mg PO FR@0900 04/05/22 08/24/23 metoprolol succinate 100 mg 50 mg PO QAM 04/05/22 08/24/23 tablet,extended release 24 hr spironolactone 25 mg tablet 12.5 mg PO SUMOWETHSA@0900 05/18/22 08/24/23 aspirin 81 mg tablet,delayed 81 mg PO DAILY 09/12/22 08/24/23 release digoxin 125 mcg (0.125 mg) tablet 125 mcg PO MOWEFR@0900 12/20/22 08/24/23 melatonin 3 mg tablet 3 mg PO HS PRN Insomnia 12/20/22 08/24/23 sennosides 8.6 mg tablet (Senokot) 8.6 mg PO BID 12/20/22 08/24/23 docusate sodium 100 mg capsule 100 mg PO BID 05/18/23 08/24/23 pravastatin 80 mg tablet 80 mg PO DAILY 05/18/23 08/24/23 carbidopa 25 mg-levodopa 100 mg 0.5 tab PO TID 08/18/23 08/24/23 tablet furosemide 40 mg tablet 40 mg PO QAM 08/18/23 08/24/23 Results & Data (ED) Vital Signs Vital Signs - 24 hr 08/24/23 19:34 08/24/23 19:47 08/24/23 19:50 Temperature 36.9 C Temperature Source Oral Pulse Rate 73 80 79 Pulse Rate from SpO2 Sensor 76 Respiratory Rate 18 24 22 Respiratory Effort / Characteristics Non-Labored Spontaneous Respiratory Depth Normal Respiratory Pattern Regular Blood Pressure 128/84 Blood Pressure Mean 98 Blood Pressure Position Sitting Pulse Oximetry 96 97 Oxygen Delivery Method Room Air Sepsis Recent Fever Within 48 Hours No Sepsis New/Unexplained Change in Mental Status N/A Sepsis Action Taken by Nursing No Action Required 08/24/23 20:03 08/24/23 20:20 08/24/23 20:30 Temperature Temperature Source Pulse Rate 77 73 Pulse Rate from SpO2 Sensor Respiratory Rate 16 17 Respiratory Effort / Characteristics Non-Labored Respiratory Depth Normal Respiratory Pattern Blood Pressure Blood Pressure Mean Blood Pressure Position Pulse Oximetry 98 Oxygen Delivery Method Room Air Sepsis Recent Fever Within 48 Hours Sepsis New/Unexplained Change in Mental Status Sepsis Action Taken by Nursing 08/24/23 20:40 08/24/23 20:50 08/24/23 20:54 Temperature Temperature Source Pulse Rate 76 78 79 Pulse Rate from SpO2 Sensor Respiratory Rate 23 23 24 Respiratory Effort / Characteristics Respiratory Depth Respiratory Pattern Blood Pressure Blood Pressure Mean Blood Pressure Position Pulse Oximetry Oxygen Delivery Method Sepsis Recent Fever Within 48 Hours Sepsis New/Unexplained Change in Mental Status Sepsis Action Taken by Nursing 08/24/23 20:54 08/24/23 21:00 08/24/23 21:08 Temperature Temperature Source Pulse Rate 77 Pulse Rate from SpO2 Sensor 79 Respiratory Rate 21 Respiratory Effort / Characteristics Respiratory Depth Respiratory Pattern Blood Pressure 156/101 H 158/112 H Blood Pressure Mean 109 137 Blood Pressure Position Pulse Oximetry 96 Oxygen Delivery Method Sepsis Recent Fever Within 48 Hours Sepsis New/Unexplained Change in Mental Status Sepsis Action Taken by Nursing 08/24/23 21:08 08/24/23 21:10 08/24/23 21:20 Temperature Temperature Source Pulse Rate 86 79 102 H Pulse Rate from SpO2 Sensor Respiratory Rate 21 23 24 Respiratory Effort / Characteristics Respiratory Depth Respiratory Pattern Blood Pressure Blood Pressure Mean Blood Pressure Position Pulse Oximetry Oxygen Delivery Method Sepsis Recent Fever Within 48 Hours Sepsis New/Unexplained Change in Mental Status Sepsis Action Taken by Nursing 08/24/23 21:30 08/24/23 21:30 08/24/23 21:40 Temperature Temperature Source Pulse Rate 80 80 Pulse Rate from SpO2 Sensor Respiratory Rate 22 22 Respiratory Effort / Characteristics Respiratory Depth Respiratory Pattern Blood Pressure 142/103 H Blood Pressure Mean 120 Blood Pressure Position Pulse Oximetry Oxygen Delivery Method Sepsis Recent Fever Within 48 Hours Sepsis New/Unexplained Change in Mental Status Sepsis Action Taken by Nursing 08/24/23 21:50 08/24/23 22:00 08/24/23 22:01 Temperature Temperature Source Pulse Rate 90 83 Pulse Rate from SpO2 Sensor Respiratory Rate 24 21 Respiratory Effort / Characteristics Respiratory Depth Respiratory Pattern Blood Pressure 172/128 H Blood Pressure Mean 149 Blood Pressure Position Pulse Oximetry Oxygen Delivery Method Sepsis Recent Fever Within 48 Hours Sepsis New/Unexplained Change in Mental Status Sepsis Action Taken by Nursing 08/24/23 22:01 08/24/23 22:10 08/24/23 22:20 Temperature Temperature Source Pulse Rate 99 H 82 90 Pulse Rate from SpO2 Sensor Respiratory Rate 23 21 22 Respiratory Effort / Characteristics Respiratory Depth Respiratory Pattern Blood Pressure Blood Pressure Mean Blood Pressure Position Pulse Oximetry Oxygen Delivery Method Sepsis Recent Fever Within 48 Hours Sepsis New/Unexplained Change in Mental Status Sepsis Action Taken by Nursing 08/24/23 22:30 08/24/23 22:30 08/24/23 22:40 Temperature Temperature Source Pulse Rate 80 78 Pulse Rate from SpO2 Sensor 71 Respiratory Rate 22 21 Respiratory Effort / Characteristics Respiratory Depth Respiratory Pattern Blood Pressure 155/105 H Blood Pressure Mean 111 Blood Pressure Position Pulse Oximetry 91 Oxygen Delivery Method Sepsis Recent Fever Within 48 Hours Sepsis New/Unexplained Change in Mental Status Sepsis Action Taken by Nursing 08/24/23 22:50 08/24/23 23:00 08/24/23 23:00 Temperature Temperature Source Pulse Rate 80 83 Pulse Rate from SpO2 Sensor 84 Respiratory Rate 18 22 Respiratory Effort / Characteristics Respiratory Depth Respiratory Pattern Blood Pressure 134/98 Blood Pressure Mean 117 Blood Pressure Position Pulse Oximetry 94 Oxygen Delivery Method Sepsis Recent Fever Within 48 Hours Sepsis New/Unexplained Change in Mental Status Sepsis Action Taken by Nursing 08/24/23 23:10 08/24/23 23:20 Temperature Temperature Source Pulse Rate 78 81 Pulse Rate from SpO2 Sensor Respiratory Rate 20 22 Respiratory Effort / Characteristics Respiratory Depth Respiratory Pattern Blood Pressure Blood Pressure Mean Blood Pressure Position Pulse Oximetry Oxygen Delivery Method Sepsis Recent Fever Within 48 Hours Sepsis New/Unexplained Change in Mental Status Sepsis Action Taken by Nursing Laboratory Data 08/24/23 20:04 08/24/23 20:04 Lab Results 08/24/23 08/24/23 Range/Units 20:04 20:10 WBC 6.42 (4.8-10.8) K/ul RBC 3.91 L (4.20-5.40) M/uL Hgb 12.8 (12.0-16.0) g/dl POC Hgb 13.6 (12.0-16.0) g/dl Hct 39.1 (37.0-47.0) % POC Hct 40 (37-47) % MCV 100.0 (80.0-100.0) fL MCH 32.7 (25.0-34.0) pg MCHC 32.7 (32.0-36.0) g/dL RDW Std Deviation 57.8 H (36.4-46.3) fL RDW Coeff of Pablo 15.9 H (11.5-14.5) % Plt Count 195 (130-400) K/uL MPV 11.0 (9.4-12.4) fL Immature Gran % (Auto) 0.5 % Neut % (Auto) 64.6 % Lymph % (Auto) 19.9 % Gila % (Auto) 11.2 % Eos % (Auto) 3.3 % Baso % (Auto) 0.5 % Neut # (Auto) 4.15 (1.40-6.50) K/uL Lymph # (Auto) 1.28 (1.20-3.40) K/uL Gila # (Auto) 0.72 H (0.11-0.59) K/uL Eos # (Auto) 0.21 (0.00-0.50) K/uL Baso # (Auto) 0.03 (0.00-0.20) K/uL Immature Gran # (Auto) 0.03 (0.01-0.20) K/uL PT 11.3 (9.0-12.0) Seconds INR 1.0 (0.9-1.1) APTT 25 (21-31) Seconds PTT Ratio 0.9 POC Sodium 137 (135-144) mmol/L Sodium 137 (136-145) mmol/L POC Potassium 5.0 (3.3-5.0) mmol/L Potassium 5.0 (3.5-5.1) mmol/L POC Chloride 101 (101-112) mmol/L Chloride 102 (98-107) mmol/L Carbon Dioxide 31 (21-32) mmol/L POC Total CO2 30 (24-31) mmol/L Anion Gap 4 (3-11) POC Anion Gap 12.0 L (16-25) mmol/L POC BUN 20 H (7-18) mg/dl BUN 18 (6-23) mg/dl Creatinine 0.74 (0.6-1.2) mg/dl POC Creatinine 0.9 (0.6-1.3) mg/dl Est Cr Clr Drug Dosing Not Reportable Est GFR ( Amer) 87.4 ml/min Est GFR (Non-Af Amer) 75.4 ml/min BUN/Creatinine Ratio 24.3 H (10-20) Glucose 98 (70-99(Fasting)) mg/dl POC Glucose (other) 98 (70-99) mg/dl Calcium 9.0 (8.6-10.3) mg/dl POC Ioniz Calcium Chiquis 1.17 (1.12-1.32) mmol/l Magnesium 2.2 (1.7-2.4) mg/dl Total Bilirubin 0.7 (0.2-1.0) mg/dl AST 21 (13-39) U/L ALT 12 (7-52) U/L Alkaline Phosphatase 44 (34-104) U/L Troponin I High Sens 12.3 (0-14) pg/ml Total Protein 6.8 (6.0-8.3) gm/dl Albumin 3.6 (3.4-5.0) gm/dl Globulin 3.2 (2.5-4.0) gm/dl Albumin/Globulin Ratio 1.1 (0.9-2) Administered Medications Discontinued Medications Ioversol (Optiray 320 125ml) 118 ml IV ONCE ONE Stop: 08/24/23 20:09 Last Admin: 08/24/23 20:08 Dose: 118 ml Documented By: JORDYN Imaging Data Radiologist's Impression: Head CT 08/24/23 19:57 CR Exam(s): CT HEAD Without Contrast EXAM: CT Head Without Intravenous Contrast CLINICAL HISTORY: Reason for exam: neuro deficit, acute stroke suspected. TECHNIQUE: Axial computed tomography images of the head/brain without intravenous contrast. CTDI is 47.98 mGy and DLP is 677.48 mGy-cm. Automated exposure control was utilized for the study. A dose lowering technique was utilized adhering to the principles of ALARA. COMPARISON: 08/23/2023 FINDINGS: Brain: Continued evolution of the left parietal hemorrhagic infarct. No new hemorrhage or mass-effect. Chronic infarct involving the right parietal lobe. Atrophy and chronic microvascular ischemic changes. Ventricles: Unremarkable. Bones/joints: Unremarkable. No fracture. Soft tissues: Unremarkable. Sinuses: No acute sinusitis. Mastoid air cells: Unremarkable as visualized. IMPRESSION: Continued evolution of the left parietal hemorrhagic infarct. No new hemorrhage or mass-effect. Communications: Call Doctor Stroke Electronically signed by: Miguel Aguilar MD 08/24/23 20:24 PM Head CTA 08/24/23 19:57 CR Exam(s): CTA HEAD With Contrast IV Amt: 118 ml optiay 320 EXAM: CT Angiography Head With Intravenous Contrast CLINICAL HISTORY: Reason for exam: neuro deficit, acute stroke suspected. TECHNIQUE: Axial computed tomographic angiography images of the head with intravenous contrast. CTDI is 47.98 mGy and DLP is 677.48 mGy-cm. Automated exposure control was utilized for the study. A dose lowering technique was utilized adhering to the principles of ALARA. MIP reconstructed images were created and reviewed. CONTRAST: Patient received 118 ml optiay 320 of IV contrast COMPARISON: No relevant prior studies available. FINDINGS: Right internal carotid artery: No acute findings. Intracranial segment is patent with no significant stenosis. No aneurysm. Right anterior cerebral artery: Unremarkable. No occlusion or significant stenosis. No aneurysm. Right middle cerebral artery: Unremarkable. No occlusion or significant stenosis. No aneurysm. Right posterior cerebral artery: Unremarkable. No occlusion or significant stenosis. No aneurysm. Right vertebral artery: Unremarkable as visualized. Left internal carotid artery: No acute findings. Intracranial segment is patent with no significant stenosis. No aneurysm. Left anterior cerebral artery: Unremarkable. No occlusion or significant stenosis. No aneurysm. Left middle cerebral artery: Unremarkable. No occlusion or significant stenosis. No aneurysm. Left posterior cerebral artery: origin of the WHEEL AND AXLE INSPECTOR on the left. No occlusion or significant stenosis. No aneurysm. Left vertebral artery: Unremarkable as visualized. Basilar artery: Unremarkable. No occlusion or significant stenosis. No aneurysm. IMPRESSION: No large vessel occlusion or flow limiting stenosis. Communications: Call Doctor Stroke Electronically signed by: Miguel Aguilar MD 08/24/23 20:33 PM Neck CTA 08/24/23 19:57 CR Exam(s): CTA NECK With Contrast IV Amt: 118 ml optiray 320 EXAM: CT Angiography Neck With Intravenous Contrast CLINICAL HISTORY: Reason for exam: neuro deficit, acute stroke suspected. TECHNIQUE: Routine carotid CT angiography protocol was performed with intravenous contrast. NASCET criteria using the distal ICAs for comparison were used for evaluation of stenoses. CTDI is 41.75 mGy and DLP is 342.41 mGy-cm. Automated exposure control was utilized for the study. A dose lowering technique was utilized adhering to the principles of ALARA. MIP reconstructed images were created and reviewed. CONTRAST: Patient received 118 ml optiray 320 of IV contrast COMPARISON: None. FINDINGS: VASCULATURE: Right common carotid artery: Unremarkable. No occlusion or significant stenosis. No dissection. Right internal carotid artery: Somewhat beaded appearance. Extracranial segment is patent with no occlusion or significant stenosis. No dissection. Right vertebral artery: Unremarkable. No occlusion or significant stenosis. No dissection. Left common carotid artery: Unremarkable. No occlusion or significant stenosis. No dissection. Left internal carotid artery: Somewhat beaded appearance. Linear filling defect within the proximal left ICA either represents flow- related artifact or a partial dissection flap. Left vertebral artery: Unremarkable. No occlusion or significant stenosis. No dissection. NECK: Bones/joints: Unremarkable. No acute fracture. Soft tissues: Unremarkable. CAROTID STENOSIS REFERENCE USING NASCET CRITERIA: % ICA stenosis = (1 - narrowest ICA diameter/diameter of distal cervical ICA) x 100. Mild - <50% stenosis. Moderate - 50-69% stenosis. Severe - 70-94% stenosis. Near occlusion - 95-99% stenosis. Occluded - 100% stenosis. IMPRESSION: 1. No flow-limiting stenosis within the cervical vasculature. 2. Linear filling defect within the proximal left ICA either represents flow-related artifact or a partial dissection flap. 3. Somewhat beaded appearance of the ICAs left greater than right suspicious for fibromuscular dysplasia. Communications: Call Doctor Stroke Electronically signed by: Miguel Aguilar MD 08/24/23 20:37 PM Discharge Plan Visit Data Chief Complaint: Leg Weakness, Bilateral Stated Complaint: L Leg Weakness ED Provider: Derek Hamilton Discharge Problem: Acute CVA (cerebrovascular accident), Internal carotid artery dissection Discharge Instructions Interventions: ED Discharge Assessment Last Done: 08/25/23 00:15
[2023-08-24] MEDS: OPTIRAY 320 125ml IV ONE (20:08)
[2023-08-24 20:23] LABS: iSTAT Creatinine 0.9 mg/dl (0.6-1.3); iSTAT Hemoglobin 13.6 g/dl (12.0-16.0); iSTAT Ionized Calcium 1.17 mmol/l (1.12-1.32)
--- NOTE | 2023-08-24 20:25 | CT Scan Report ---
Exam(s): CT HEAD Without Contrast EXAM: CT Head Without Intravenous Contrast CLINICAL HISTORY: Reason for exam: neuro deficit, acute stroke suspected. TECHNIQUE: Axial computed tomography images of the head/brain without intravenous contrast. CTDI is 47.98 mGy and DLP is 677.48 mGy-cm. Automated exposure control was utilized for the study. A dose lowering technique was utilized adhering to the principles of ALARA. COMPARISON: 08/23/2023 FINDINGS: Brain: Continued evolution of the left parietal hemorrhagic infarct. No new hemorrhage or mass-effect. Chronic infarct involving the right parietal lobe. Atrophy and chronic microvascular ischemic changes. Ventricles: Unremarkable. Bones/joints: Unremarkable. No fracture. Soft tissues: Unremarkable. Sinuses: No acute sinusitis. Mastoid air cells: Unremarkable as visualized. IMPRESSION: Continued evolution of the left parietal hemorrhagic infarct. No new hemorrhage or mass-effect. Communications: Call Doctor Stroke Electronically signed by: Miguel Aguilar MD 08/24/23 20:24 PM
--- NOTE | 2023-08-24 20:34 | CT Scan Report ---
Exam(s): CTA HEAD With Contrast IV Amt: 118 ml optiay 320 EXAM: CT Angiography Head With Intravenous Contrast CLINICAL HISTORY: Reason for exam: neuro deficit, acute stroke suspected. TECHNIQUE: Axial computed tomographic angiography images of the head with intravenous contrast. CTDI is 47.98 mGy and DLP is 677.48 mGy-cm. Automated exposure control was utilized for the study. A dose lowering technique was utilized adhering to the principles of ALARA. MIP reconstructed images were created and reviewed. CONTRAST: Patient received 118 ml optiay 320 of IV contrast COMPARISON: No relevant prior studies available. FINDINGS: Right internal carotid artery: No acute findings. Intracranial segment is patent with no significant stenosis. No aneurysm. Right anterior cerebral artery: Unremarkable. No occlusion or significant stenosis. No aneurysm. Right middle cerebral artery: Unremarkable. No occlusion or significant stenosis. No aneurysm. Right posterior cerebral artery: Unremarkable. No occlusion or significant stenosis. No aneurysm. Right vertebral artery: Unremarkable as visualized. Left internal carotid artery: No acute findings. Intracranial segment is patent with no significant stenosis. No aneurysm. Left anterior cerebral artery: Unremarkable. No occlusion or significant stenosis. No aneurysm. Left middle cerebral artery: Unremarkable. No occlusion or significant stenosis. No aneurysm. Left posterior cerebral artery: origin of the PROPERTY PORTFOLIO OFFICER on the left. No occlusion or significant stenosis. No aneurysm. Left vertebral artery: Unremarkable as visualized. Basilar artery: Unremarkable. No occlusion or significant stenosis. No aneurysm. IMPRESSION: No large vessel occlusion or flow limiting stenosis. Communications: Call Doctor Stroke Electronically signed by: Miguel Aguilar MD 08/24/23 20:33 PM
--- NOTE | 2023-08-24 20:38 | CT Scan Report ---
Exam(s): CTA NECK With Contrast IV Amt: 118 ml optiray 320 EXAM: CT Angiography Neck With Intravenous Contrast CLINICAL HISTORY: Reason for exam: neuro deficit, acute stroke suspected. TECHNIQUE: Routine carotid CT angiography protocol was performed with intravenous contrast. NASCET criteria using the distal ICAs for comparison were used for evaluation of stenoses. CTDI is 41.75 mGy and DLP is 342.41 mGy-cm. Automated exposure control was utilized for the study. A dose lowering technique was utilized adhering to the principles of ALARA. MIP reconstructed images were created and reviewed. CONTRAST: Patient received 118 ml optiray 320 of IV contrast COMPARISON: None. FINDINGS: VASCULATURE: Right common carotid artery: Unremarkable. No occlusion or significant stenosis. No dissection. Right internal carotid artery: Somewhat beaded appearance. Extracranial segment is patent with no occlusion or significant stenosis. No dissection. Right vertebral artery: Unremarkable. No occlusion or significant stenosis. No dissection. Left common carotid artery: Unremarkable. No occlusion or significant stenosis. No dissection. Left internal carotid artery: Somewhat beaded appearance. Linear filling defect within the proximal left ICA either represents flow- related artifact or a partial dissection flap. Left vertebral artery: Unremarkable. No occlusion or significant stenosis. No dissection. NECK: Bones/joints: Unremarkable. No acute fracture. Soft tissues: Unremarkable. CAROTID STENOSIS REFERENCE USING NASCET CRITERIA: % ICA stenosis = (1 - narrowest ICA diameter/diameter of distal cervical ICA) x 100. Mild - <50% stenosis. Moderate - 50-69% stenosis. Severe - 70-94% stenosis. Near occlusion - 95-99% stenosis. Occluded - 100% stenosis. IMPRESSION: 1. No flow-limiting stenosis within the cervical vasculature. 2. Linear filling defect within the proximal left ICA either represents flow-related artifact or a partial dissection flap. 3. Somewhat beaded appearance of the ICAs left greater than right suspicious for fibromuscular dysplasia. Communications: Call Doctor Stroke Electronically signed by: Miguel Aguilar MD 08/24/23 20:37 PM
[2023-08-24 20:49] LABS: Basophils # (auto) 0.03 K/uL (0.00-0.20); Basophils % (auto) 0.5 %; Eosinophils # (auto) 0.21 K/uL (0.00-0.50); Eosinophils % (auto) 3.3 %; Hematocrit (blood only) 39.1 % (37.0-47.0); Hemoglobin 12.8 g/dl (12.0-16.0); Immature Granulocytes # (auto) 0.03 K/uL (0.01-0.20); Immature Granulocytes % (auto) 0.5 %; Lymphocytes # (auto) 1.28 K/uL (1.20-3.40); Lymphocytes % (auto) 19.9 %; Mean Corpuscular Hemoglobin 32.7 pg (25.0-34.0); Mean Corpuscular Hgb Conc 32.7 g/dL (32.0-36.0); Monocytes # (auto) 0.72 K/uL (0.11-0.59); Monocytes % (auto) 11.2 %; Neutrophils # (auto) 4.15 K/uL (1.40-6.50); Neutrophils % (auto) 64.6 %; Platelet Count 195 K/uL (130-400); RDW Coefficient of Variation 15.9 % (11.5-14.5); RDW Standard Deviation 57.8 fL (36.4-46.3); Red Blood Count 3.91 M/uL (4.20-5.40); White Blood Count 6.42 K/ul (4.8-10.8)
[2023-08-24 21:01] LABS: Partial Thromboplastin Ratio 0.9; Partial Thromboplastin Time 25 Seconds (21-31); Prothrombin Time 11.3 Seconds (9.0-12.0)
[2023-08-24 21:12] LABS: Alanine Aminotransferase 12 U/L (7-52); Albumin Globulin Ratio 1.1 (0.9-2); Albumin Level 3.6 gm/dl (3.4-5.0); Alkaline Phosphatase 44 U/L (34-104); Anion Gap 4 (3-11); Aspartate Aminotransferase 21 U/L (13-39); BUN Creatinine Ratio 24.3 (10-20); Bilirubin,Total 0.7 mg/dl (0.2-1.0); Blood Urea Nitrogen 18 mg/dl (6-23); Carbon Dioxide 31 mmol/L (21-32); Chloride 102 mmol/L (98-107); Est GFR (African American) 87.4 ml/min; Est GFR (Non-African American) 75.4 ml/min; Globulin 3.2 gm/dl (2.5-4.0); Glucose 98 mg/dl (70-99(Fasting)); Magnesium 2.2 mg/dl (1.7-2.4); Sodium 137 mmol/L (136-145); Total Protein 6.8 gm/dl (6.0-8.3)
[2023-08-24 21:19] LABS: Troponin I High Sensitivity 12.3 pg/ml (0-14)
--- NOTE | 2023-08-24 23:43 | History & Physical Report ---
Date of Service August 24, 2023 Assessment & Plan (1) CVA (cerebral vascular accident): Plan: 83-year-old female past medical history significant for chronic atrial fibrillation, frequent ventricular ectopy, systolic and diastolic CHF, valvular heart disease with mild MR and moderate to severe TR, nocturnal hypoxemia and mild obstructive sleep apnea with oxygen nightly, hyperlipidemia with statin intolerance, history of pancreatic tumor s/p distal pancreatectomy/splenectomy, history of CVA, CKD stage III, history of NHL s/p radiation, history of breast cancer on Arimidex and patient was in the [facility] ER on August 09 with intermittent numbness of left lower extremity and impending doom and CAT scan showed acute intraparenchymal hemorrhage and patient was given Kcentra as she takes Eliquis at that time and she was transferred to [facility]. 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 And she has history of radiation to her left parotid gland which can cause cavernoma's as per [facility]. Etiology of the bleed was also likely cerebral amyloid angiopathy per [facility] cabrera Eliquis was stopped. Statin and aspirin was restarted at time of discharge. Plan was to repeat MRI scan in 1 month and at that time to discuss about restarting anticoagulation and she was discharged in stable condition on August 13 from [facility]. She again came to [facility] from [facility] on August 17 with fall and given her volume depletion gentle fluids were given and diuretics were held and she was discharged to SNF for rehab. Comes back today because around 4 PM she noted her left arm would not work. And also not able to move her left lower extremity. Patient is alert and oriented and able to give her history. Currently denies any headache. No blurred vision. No runny nose or sore throat. No cough. No difficulty swallowing. No chest pain or shortness of breath. No fevers. No nausea. No abdominal pain. Normal bowel and bladder movements. Prior to the today's episode was ambulating with walker. Hemodynamics are okay currently. CVA Left-sided weakness CTA neck shows: . Linear filling defect within the proximal left ICA either represents flow-related artifact or a partial dissection flap. 3. Somewhat beaded appearance of the ICAs left greater than right suspicious for fibromuscular dysplasia. [facility] intervention at this time because of recent brain bleed and to continue aspirin and statin for now Will do full stroke workup with MRI head, echo, speech evaluation and PT OT evaluation Neuroconsult in a.m. for further recommendations Vascular surgery consult Close monitor History of chronic atrial fibrillation Rate controlled metoprolol succinate Current Eliquis is on hold because of recent brain bleed Plan is to repeat MRI scan in 1 month from August 13 and follow-up with neurosurgery and at the time to decide about restarting Eliquis. Chronic systolic and diastolic CHF Valvular heart disease Recent last admission diuretics were held because of low volume depletion Getting gentle fluids as patient currently n.p.o. Diuretics on hold Close monitor Cardiology consult to help with medication optimization Hypertension Metoprolol succinate holding parameters Nocturnal hypoxia and mild obstructive apnea Nighttime oxygen History of tremors on carbidopa DVT prophylaxis SCDs Disposition Telemetry CODE STATUS. 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 And she has history of radiation to her left parotid gland which can cause cavernoma's as per [facility]. Etiology of the bleed was also likely cerebral amyloid angiopathy per [facility] . Eliquis was stopped. Statin and aspirin was restarted at time of discharge. Plan was to repeat MRI scan in 1 month and at that time to discuss about restarting anticoagulation and she was discharged in stable condition on August 13 from [facility]. She again came to [facility] from [facility] on August 17 with fall and given her volume depletion gentle fluids were given and diuretics were held and she was discharged to SNF for rehab. Comes back today because around 4 PM she noted her left arm would not work. And also not able to move her left lower extremity. Patient is alert and oriented and able to give her history. Currently denies any headache. No blurred vision. No runny nose or sore throat. No cough. No difficulty swallowing. No chest pain or shortness of breath. No fevers. No nausea. No abdominal pain. Normal bowel and bladder movements. Prior to the today's episode was ambulating with walker. Hemodynamics are okay currently. Past med history. As mentioned above Past surgical history. Right breast biopsy. Dental surgery. Right partial mastectomy. Left removal of parotid gland. Tonsillectomy. Bilateral total hip replacements. Social history. No smoking. No alcohol use. No drug use. Family history. Mother had hypertension. Renal and prostate cancer. Sister has cancer. Brother has hypertension. Allergies Allergy/AdvReac Type Severity Reaction Status Date / Time ezetimibe AdvReac Intermediate Weakness Verified 08/24/23 21:41 chlorpheniramine AdvReac Mild "Antsy Verified 08/24/23 21:41 [From Chlor-Trimeton] Feeling" Home Medications Medication Instructions Recorded Confirmed Type calcium carbonate 600 mg-vitamin 1 tab PO DAILY 04/23/19 08/24/23 History D3 5 mcg (200 unit) tablet multivitamin 1 tab PO DAILY 04/23/19 08/24/23 History anastrozole 1 mg tablet (Arimidex) 1 mg PO DAILY 11/04/20 08/24/23 History alendronate 70 mg tablet (Fosamax) 70 mg PO FR@0900 04/05/22 08/24/23 History metoprolol succinate 100 mg 50 mg PO QAM 04/05/22 08/24/23 History tablet,extended release 24 hr spironolactone 25 mg tablet 12.5 mg PO SUMOWETHSA@0900 05/18/22 08/24/23 History aspirin 81 mg tablet,delayed 81 mg PO DAILY 09/12/22 08/24/23 History release digoxin 125 mcg (0.125 mg) tablet 125 mcg PO MOWEFR@0900 12/20/22 08/24/23 History melatonin 3 mg tablet 3 mg PO HS PRN Insomnia 12/20/22 08/24/23 History sennosides 8.6 mg tablet (Senokot) 8.6 mg PO BID 12/20/22 08/24/23 History docusate sodium 100 mg capsule 100 mg PO BID 05/18/23 08/24/23 History pravastatin 80 mg tablet 80 mg PO DAILY 05/18/23 08/24/23 History carbidopa 25 mg-levodopa 100 mg 0.5 tab PO TID 08/18/23 08/24/23 History tablet furosemide 40 mg tablet 40 mg PO QAM 08/18/23 08/24/23 History Past Med/Surg History Medical History Combined systolic and diastolic heart failure Breast cancer, right 03/09/2020 Follicular lymphoma grade 3a Atrial fibrillation Neuroendocrine carcinoma of pancreas CVA (cerebral vascular accident) Cardiomyopathy Ventricular ectopy TIA (transient ischemic attack) 2009 - No Deficits Arthritis Follicular lymphoma Diagnosed 01/28/19 - Left Parotid Gland Surgical History S/P lumpectomy, right breast With SLN biopsy Dr. Matthew on 04/22/2020 Post-splenectomy History of superficial parotidectomy 01/28/19 - with facial nerve dissection and preservation History of tonsillectomy as a child History of colonoscopy 2018 History of hip replacement, total Left - 2007, Right - 2008 Family History Father , Passed age 88 of Kidney Cancer No problems noted. Mother , Passed age 83 of Alzheimers Disease No problems noted. Brother No problems noted. Sister ALL (acute lymphoblastic leukemia), Onset Age: 66 Now in remission Daughter No problems noted. Son No problems noted. 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 Lungs- clear to auscultation no wheezing or crackles. Heart- regular rhythm; no murmur, no gallop. Abdomen- normal bowel sounds, soft, nontender, no distension. Extremities- mild pretibial edema, no erythema seen. Neuro- alert, oriented x 3; PERRL, EOMI; no facial palsy; no dysarthria; weakness in let extremities(flaccid). Results & Data Results & Data Vital Signs (Past 12 Hours) Vital Signs Temp Pulse Resp BP Pulse Ox O2 Del Method 08/24/23 20:03 Room Air 08/24/23 19:34 36.9 C 73 18 128/84 96 Room Air Diagnostic Findings Laboratory Results WBC 6.42 K/ul (4.8-10.8) 08/24/23 20:04 RBC 3.91 M/uL (4.20-5.40) L 08/24/23 20:04 Hgb 12.8 g/dl (12.0-16.0) 08/24/23 20:04 POC Hgb 13.6 g/dl (12.0-16.0) 08/24/23 20:10 Hct 39.1 % (37.0-47.0) 08/24/23 20:04 POC Hct 40 % (37-47) 08/24/23 20:10 MCV 100.0 fL (80.0-100.0) 08/24/23 20:04 MCH 32.7 pg (25.0-34.0) 08/24/23 20:04 MCHC 32.7 g/dL (32.0-36.0) 08/24/23 20:04 RDW Std Deviation 57.8 fL (36.4-46.3) H 08/24/23 20:04 RDW Coeff of Pablo 15.9 % (11.5-14.5) H 08/24/23 20:04 Plt Count 195 K/uL (130-400) 08/24/23 20:04 MPV 11.0 fL (9.4-12.4) 08/24/23 20:04 Immature Gran % (Auto) 0.5 % 08/24/23 20:04 Neut % (Auto) 64.6 % 08/24/23 20:04 Lymph % (Auto) 19.9 % 08/24/23 20:04 Hand % (Auto) 11.2 % 08/24/23 20:04 Eos % (Auto) 3.3 % 08/24/23 20:04 Baso % (Auto) 0.5 % 08/24/23 20:04 Neut # (Auto) 4.15 K/uL (1.40-6.50) 08/24/23 20:04 Lymph # (Auto) 1.28 K/uL (1.20-3.40) 08/24/23 20:04 Hand # (Auto) 0.72 K/uL (0.11-0.59) H 08/24/23 20:04 Eos # (Auto) 0.21 K/uL (0.00-0.50) 08/24/23 20:04 Baso # (Auto) 0.03 K/uL (0.00-0.20) 08/24/23 20:04 Immature Gran # (Auto) 0.03 K/uL (0.01-0.20) 08/24/23 20:04 PT 11.3 Seconds (9.0-12.0) 08/24/23 20:04 INR 1.0 (0.9-1.1) 08/24/23 20:04 APTT 25 Seconds (21-31) 08/24/23 20:04 PTT Ratio 0.9 08/24/23 20:04 POC Sodium 137 mmol/L (135-144) 08/24/23 20:10 Sodium 137 mmol/L (136-145) 08/24/23 20:04 POC Potassium 5.0 mmol/L (3.3-5.0) 08/24/23 20:10 Potassium 5.0 mmol/L (3.5-5.1) 08/24/23 20:04 POC Chloride 101 mmol/L (101-112) 08/24/23 20:10 Chloride 102 mmol/L (98-107) 08/24/23 20:04 Carbon Dioxide 31 mmol/L (21-32) 08/24/23 20:04 POC Total CO2 30 mmol/L (24-31) 08/24/23 20:10 Anion Gap 4 (3-11) 08/24/23 20:04 POC Anion Gap 12.0 mmol/L (16-25) L 08/24/23 20:10 POC BUN 20 mg/dl (7-18) H 08/24/23 20:10 BUN 18 mg/dl (6-23) 08/24/23 20:04 Creatinine 0.74 mg/dl (0.6-1.2) 08/24/23 20:04 POC Creatinine 0.9 mg/dl (0.6-1.3) 08/24/23 20:10 Est Cr Clr Drug Dosing Not Reportable 08/24/23 20:04 Est GFR ( Amer) 87.4 ml/min 08/24/23 20:04 Est GFR (Non-Af Amer) 75.4 ml/min 08/24/23 20:04 BUN/Creatinine Ratio 24.3 (10-20) H 08/24/23 20:04 Glucose 98 mg/dl (70-99(Fasting)) 08/24/23 20:04 POC Glucose (other) 98 mg/dl (70-99) 08/24/23 20:10 Calcium 9.0 mg/dl (8.6-10.3) 08/24/23 20:04 POC Ioniz Calcium Chiquis 1.17 mmol/l (1.12-1.32) 08/24/23 20:10 Magnesium 2.2 mg/dl (1.7-2.4) 08/24/23 20:04 Total Bilirubin 0.7 mg/dl (0.2-1.0) 08/24/23 20:04 AST 21 U/L (13-39) 08/24/23 20:04 ALT 12 U/L (7-52) 08/24/23 20:04 Alkaline Phosphatase 44 U/L (34-104) 08/24/23 20:04 Troponin I High Sens 12.3 pg/ml (0-14) 08/24/23 20:04 Total Protein 6.8 gm/dl (6.0-8.3) 08/24/23 20:04 Albumin 3.6 gm/dl (3.4-5.0) 08/24/23 20:04 Globulin 3.2 gm/dl (2.5-4.0) 08/24/23 20:04 Albumin/Globulin Ratio 1.1 (0.9-2) 08/24/23 20:[address] 08/24/23 19:57 CR Exam(s): CT HEAD Without Contrast EXAM: CT Head Without Intravenous Contrast CLINICAL HISTORY: Reason for exam: neuro deficit, acute stroke suspected. TECHNIQUE: Axial computed tomography images of the head/brain without intravenous contrast. CTDI is 47.98 mGy and DLP is 677.48 mGy-cm. Automated exposure control was utilized for the study. A dose lowering technique was utilized adhering to the principles of ALARA. COMPARISON: 08/23/2023 FINDINGS: Brain: Continued evolution of the left parietal hemorrhagic infarct. No new hemorrhage or mass-effect. Chronic infarct involving the right parietal lobe. Atrophy and chronic microvascular ischemic changes. Ventricles: Unremarkable. Bones/joints: Unremarkable. No fracture. Soft tissues: Unremarkable. Sinuses: No acute sinusitis. Mastoid air cells: Unremarkable as visualized. IMPRESSION: Continued evolution of the left parietal hemorrhagic infarct. No new hemorrhage or mass-effect. Communications: Call Doctor Stroke Electronically signed by: Miguel Aguilar MD 08/24/23 20:24 PM Head CTA 08/24/23 19:57 CR Exam(s): CTA HEAD With Contrast IV Amt: 118 ml optiay 320 EXAM: CT Angiography Head With Intravenous Contrast CLINICAL HISTORY: Reason for exam: neuro deficit, acute stroke suspected. TECHNIQUE: Axial computed tomographic angiography images of the head with intravenous contrast. CTDI is 47.98 mGy and DLP is 677.48 mGy-cm. Automated exposure control was utilized for the study. A dose lowering technique was utilized adhering to the principles of ALARA. MIP reconstructed images were created and reviewed. CONTRAST: Patient received 118 ml optiay 320 of IV contrast COMPARISON: No relevant prior studies available. FINDINGS: Right internal carotid artery: No acute findings. Intracranial segment is patent with no significant stenosis. No aneurysm. Right anterior cerebral artery: Unremarkable. No occlusion or significant stenosis. No aneurysm. Right middle cerebral artery: Unremarkable. No occlusion or significant stenosis. No aneurysm. Right posterior cerebral artery: Unremarkable. No occlusion or significant stenosis. No aneurysm. Right vertebral artery: Unremarkable as visualized. Left internal carotid artery: No acute findings. Intracranial segment is patent with no significant stenosis. No aneurysm. Left anterior cerebral artery: Unremarkable. No occlusion or significant stenosis. No aneurysm. Left middle cerebral artery: Unremarkable. No occlusion or significant stenosis. No aneurysm. Left posterior cerebral artery: origin of the CREATIVE DIRECTOR on the left. No occlusion or significant stenosis. No aneurysm. Left vertebral artery: Unremarkable as visualized. Basilar artery: Unremarkable. No occlusion or significant stenosis. No aneurysm. IMPRESSION: No large vessel occlusion or flow limiting stenosis. Communications: Call Doctor Stroke Electronically signed by: Miguel Aguilar MD 08/24/23 20:33 PM Neck CTA 08/24/23 19:57 CR Exam(s): CTA NECK With Contrast IV Amt: 118 ml optiray 320 EXAM: CT Angiography Neck With Intravenous Contrast CLINICAL HISTORY: Reason for exam: neuro deficit, acute stroke suspected. TECHNIQUE: Routine carotid CT angiography protocol was performed with intravenous contrast. NASCET criteria using the distal ICAs for comparison were used for evaluation of stenoses. CTDI is 41.75 mGy and DLP is 342.41 mGy-cm. Automated exposure control was utilized for the study. A dose lowering technique was utilized adhering to the principles of ALARA. MIP reconstructed images were created and reviewed. CONTRAST: Patient received 118 ml optiray 320 of IV contrast COMPARISON: None. FINDINGS: VASCULATURE: Right common carotid artery: Unremarkable. No occlusion or significant stenosis. No dissection. Right internal carotid artery: Somewhat beaded appearance. Extracranial segment is patent with no occlusion or significant stenosis. No dissection. Right vertebral artery: Unremarkable. No occlusion or significant stenosis. No dissection. Left common carotid artery: Unremarkable. No occlusion or significant stenosis. No dissection. Left internal carotid artery: Somewhat beaded appearance. Linear filling defect within the proximal left ICA either represents flow- related artifact or a partial dissection flap. Left vertebral artery: Unremarkable. No occlusion or significant stenosis. No dissection. NECK: Bones/joints: Unremarkable. No acute fracture. Soft tissues: Unremarkable. CAROTID STENOSIS REFERENCE USING NASCET CRITERIA: % ICA stenosis = (1 - narrowest ICA diameter/diameter of distal cervical ICA) x 100. Mild - <50% stenosis. Moderate - 50-69% stenosis. Severe - 70-94% stenosis. Near occlusion - 95-99% stenosis. Occluded - 100% stenosis. IMPRESSION: 1. No flow-limiting stenosis within the cervical vasculature. 2. Linear filling defect within the proximal left ICA either represents flow-related artifact or a partial dissection flap. 3. Somewhat beaded appearance of the ICAs left greater than right suspicious for fibromuscular dysplasia. Communications: Call Doctor Stroke Electronically signed by: Miguel Aguilar MD 08/24/23 20:37 PM ECG Additional Comments: ECG. Atrial fibrillation with PVCs at a rate of 79. Nonspecific ST and T wave abnormalities. Code Status & VTE Plan VTE Prophylaxis Plan VTE Prophylaxis will be ordered: Yes
[2023-08-25] MEDS ORDERED: ACETAMINOPHEN 325 MG TAB PO PRN (00:14)
[2023-08-25] MEDS ORDERED: NITROGLYCERIN SL 0.4 MG/TAB TAB SL PRN (00:14)
[2023-08-25] MEDS ORDERED: PHARMACIST DISCHARGE MED REC CONSULT PRN (00:14)
[2023-08-25] MEDS ORDERED: POLYETHYLENE (MIRALAX) 17 GM PACK PO PRN (00:14)
[2023-08-25] MEDS: SODIUM CHLORIDE 0.9% 1,000 ML IV SCH (03:25)
[2023-08-25 04:10] LABS: Basophils # (auto) 0.02 K/uL (0.00-0.20); Basophils % (auto) 0.3 %; Eosinophils # (auto) 0.15 K/uL (0.00-0.50); Eosinophils % (auto) 2.3 %; Hematocrit (blood only) 39.6 % (37.0-47.0); Immature Granulocytes # (auto) 0.02 K/uL (0.01-0.20); Immature Granulocytes % (auto) 0.3 %; Lymphocytes # (auto) 0.96 K/uL (1.20-3.40); Lymphocytes % (auto) 14.9 %; Mean Corpuscular Hemoglobin 32.3 pg (25.0-34.0); Mean Corpuscular Hgb Conc 32.8 g/dL (32.0-36.0); Mean Corpuscular Volume 98.3 fL (80.0-100.0); Mean Platelet Volume 10.7 fL (9.4-12.4); Monocytes # (auto) 0.75 K/uL (0.11-0.59); Monocytes % (auto) 11.6 %; Neutrophils # (auto) 4.54 K/uL (1.40-6.50); Neutrophils % (auto) 70.6 %; Platelet Count 181 K/uL (130-400); RDW Coefficient of Variation 15.6 % (11.5-14.5); RDW Standard Deviation 56.6 fL (36.4-46.3); Red Blood Count 4.03 M/uL (4.20-5.40); White Blood Count 6.44 K/ul (4.8-10.8)
[2023-08-25 04:30] LABS: Anion Gap 6 (3-11); BUN Creatinine Ratio 21.9 (10-20); Blood Urea Nitrogen 14 mg/dl (6-23); Calcium 8.8 mg/dl (8.6-10.3); Carbon Dioxide 29 mmol/L (21-32); Chloride 102 mmol/L (98-107); Chol HDL Ratio 2.4 (0-5); Cholesterol 148 mg/dl (0-200); Est GFR (African American) 96.3 ml/min; Est GFR (Non-African American) 83.1 ml/min; Glucose 100 mg/dl (70-99(Fasting)); HDL Cholesterol 62 mg/dl; LDL Cholesterol Calculated 76 mg/dl; Potassium 4.6 mmol/L (3.5-5.1); Sodium 137 mmol/L (136-145); Triglycerides 50 mg/dl (0-150); VLDL Cholesterol 10 mg/dl (0-30)
[2023-08-25 07:36] LABS: Estimated Average Glucose 126 mg/dl
--- NOTE | 2023-08-25 07:59 | XRay Report ---
XR chest 1V portable CLINICAL HISTORY: neuro deficit, acute stroke suspected COMPARISON STUDY: Chest CT July 22, 2022. Chest radiograph August 18, 2023. FINDINGS: Lung volumes are normal. Lungs are clear. There is no pneumothorax or pleural effusion. Car diomegaly is unchanged. Mediastinal contours are normal. There is no evidence for pulmonary edema. IMPRESSION: No acute cardiopulmonary findings. Stable cardiomegaly. ACT 112: Negative or not required by law. Electronically signed by: Anderson Branch M.D. 08/25/2023 7:58 AM
--- NOTE | 2023-08-25 08:15 | Hospitalist Progress Note ---
Date of Service August 25, 2023 Assessment & Plan (1) CVA (cerebral vascular accident): Plan: 83-year-old female past medical history significant for chronic atrial fibrillation, frequent ventricular ectopy, systolic and diastolic CHF, valvular heart disease with mild MR and moderate to severe TR, nocturnal hypoxemia and mild obstructive sleep apnea with oxygen nightly, hyperlipidemia with statin intolerance, history of pancreatic tumor s/p distal pancreatectomy/splenectomy, history of CVA, CKD stage III, history of NHL s/p radiation, history of breast cancer on Arimidex and patient was in the [facility] ER on August 09 with intermittent numbness of left lower extremity and impending doom and CAT scan showed acute intraparenchymal hemorrhage and patient was given Kcentra as she takes Eliquis at that time and she was transferred to [place]. 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 And she has history of radiation to her left parotid gland which can cause cavernoma's as per [place]. Etiology of the bleed was also likely cerebral amyloid angiopathy per Savanna cabrera Eliquis was stopped. Statin and aspirin was restarted at time of discharge. Plan was to repeat MRI scan in 1 month and at that time to discuss about restarting anticoagulation and she was discharged in stable condition on August 13 from [place]. She again came to [facility] from [facility] on August 17 with fall and given her volume depletion gentle fluids were given and diuretics were held and she was discharged to SNF for rehab. Comes back today because around 4 PM she noted her left arm would not work. And also not able to move her left lower extremity. Patient is alert and oriented and able to give her history. Currently denies any headache. No blurred vision. No runny nose or sore throat. No cough. No difficulty swallowing. No chest pain or shortness of breath. No fevers. No nausea. No abdominal pain. Normal bowel and bladder movements. Prior to the today's episode was ambulating with walker. Hemodynamics are okay currently. CVA Left-sided weakness CTA neck shows: . Linear filling defect within the proximal left ICA either represents flow-related artifact or a partial dissection flap. 3. Somewhat beaded appearance of the ICAs left greater than right suspicious for fibromuscular dysplasia. [facility] intervention at this time because of recent brain bleed and to continue aspirin and statin for now Will do full stroke workup with MRI head, echo, speech evaluation and PT OT evaluation Brain MRI - 1. There is a 3 cm acute infarct within the right high convexity right posterior frontal lobe. 2. There is again noted an acute to subacute hemorrhagic focus within the left frontotemporal lobe measuring 22 x 14 mm. This is similar to the prior CT examination. This demonstrates a surrounding hemosiderin ring consistent with areas of chronic hemorrhage as well as surrounding vasogenic edema. No abnormal enhancement identified. However, an underlying lesion such as a cavernoma or cerebral amyloid angiopathy is not excluded. Follow-up brain MRI in one month recommended to ensure complete resolution. 3. Additional old infarcts as described above. 4. This report was called/faxed to the referring physician following dictation. Neurology consulted - (1) Acute CVA (cerebrovascular accident): - Suspect likely has small vessel subcortical stroke to explain acute left sided hemiparesis - Continue ASA 81 mg daily - Obtain MRI Brain - Consider d/c anastrozole as this increases risk of stroke (2) Internal carotid artery dissection: - Appears same on prior CTA from 08/09, involving left proximal ICA - Continue ASA 81mg daily - Agree with vascular surgery evaluation, though expect medical management to be more appropriate than surgical - This lesion is not associated with the patients acute symptoms, it is on the wrong side - Recommend repeat CTA in 3months for reassessment (3) Chronic a-fib: - Eliquis on hold due to recent ICH - MRI brain September 12 and then consider restart Update after MRI obtained - MRI reviewed, stroke is embolic in appearance, this is most likely cardioembolic from AF. Her IPH is stable on the MRI, but she is high risk for correction OAC. Recommend discuss Watchman device with cardiology. 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 This has not changed since previous neck CTA a few weeks ago. Would typically recommend anticoagulation for an acute/subacute dissection, however, she was recently hospitalized for ICH and AC was stopped. Will allow medicine/neurology to decide if/when she can restart AC. Her sx of L sided weakness would be more related to her R ICA, which does not demonstrate any significant abnormalities. No indications for vascular surgical intervention. Medical management recommended. Close monitor History of chronic atrial fibrillation Rate controlled metoprolol succinate Current Eliquis is on hold because of recent brain bleed Plan is to repeat MRI scan in 1 month from August 13 and follow-up with neurosurgery and at the time to decide about restarting Eliquis. Echo - Rate controlled A-fib was present during echo study. There is mild concentric LVH. Borderline global hypokinesis of the left ventricle. LV systolic function is low normal. EF 50 to 55%. LA is severely dilated. There is a complex 1.6 x 1.1 mobile echodensity visualized in right atrium that appears to be adherent to the intra-atrial septum. Appearance suggests thrombus entrapped by a prominent eustachian valve, infectious vegetation, or other cardiac masses are also possible. No interatrial shunt was detected with the administration of agitated saline contrast. Compared to the images obtained in March 2019 and in September 2022, echodensity in right atrium is a new finding. Very mild [id number] shunt was detected with bubble study performed in 2019 that cannot be reproduced on the present study. Chronic systolic and diastolic CHF Valvular heart disease Recent last admission diuretics were held because of low volume depletion Getting gentle fluids as patient currently n.p.o. Diuretics on hold Close monitor Cardiology consult to help with medication optimization Discussed echo findings w/ cardiology - will obtain LE dopplers and blood cultx Hypertension Metoprolol succinate holding parameters Nocturnal hypoxia and mild obstructive apnea Nighttime oxygen History of tremors on carbidopa DVT prophylaxis SCDs Disposition Telemetry CODE STATUS. Full code if there is chance of recovery as per admitting provider's discussion with the patient. I further discussed today with pt's daughter Janelle as well and she reports they also have it in writing that pt would not want any aggressive measures - confirmed with me DNR/DNI status. Code status changed. Admission and Anticipated Discharge Date Admission Date: August 24, 2023 Subjective Pt seen in follow up of LUE , LLE weakness, ICA dissection, recent hx of brain bleed Currently laying in bed in no acute distress. Reports weakness in her left upper extremity and left lower extremity. Patient also tells me that her right lower extremity feels somewhat weak, however she is able to lift it off the bed. No fever chills chest pain palpitations shortness of breath, no headache. Discussed with patient findings of MRI, and consistent with a stroke. Discussed with neurology, cardiology and later also with patient's daughter over the phone. Given her history of brain bleed, patient is not a candidate for anticoagulation at this time. Per cardiology, abnormal findings on echocardiogram, and therefore we will also obtain DVT Dopplers of lower extremities, and blood cultures. Per daughter Janelle, patient has ongoing weakness in her extremities that come and go, and was seen by neurology several times for this as well. At this moment Janelle did not feel that patient was much different than her usual, says that she is usually in a wheelchair at [facility]. We discussed not able to anticoagulate her at this time d/t hx of brain bleed, history of A-fib, and possibility of findings of clots and not able to anticoagulate. Janelle understands the complexity of medical issues. I also discussed CODE STATUS with her and she tells me that they discussed this - patient nor family wanted aggressive measures, and they have this all in writing as well, therefore CODE STATUS was changed to DNR/DNI. Review of Systems Review of Systems: All systems reviewed & are unremarkable except as noted in Subjective Physical Exam Physical Exam: General- WD/WN elderly F in NAD Head- atraumatic Eyes- PERRL.EOMI ENT- oropharynx clear Neck- supple, no JVD. Lungs- clear to auscultation no wheezing or crackles. Heart- irregular; no murmur, no gallop. Abdomen- normal bowel sounds, soft, nontender, no distension. Extremities- mild pretibial edema, no erythema seen. Neuro- alert, oriented x 3; PERRL, EOMI; no facial palsy; no dysarthria; weakness in let extremities(flaccid). Results & Data Results & Data Vital Signs (Past 12 Hours) Vital Signs Pulse Pulse Resp BP BP Pulse Ox Pulse Ox 08/25/23 07:49 94 H 08/25/23 03:56 08/25/23 03:00 75 20 135/92 96 08/25/23 01:47 76 08/25/23 00:14 82 16 145/106 H 96 08/25/23 00:14 96 08/24/23 23:30 136/97 08/24/23 23:30 82 22 08/24/23 23:20 81 22 08/24/23 23:10 78 20 04/25/24 23:00 83 22 08/24/23 23:00 134/98 08/24/23 22:50 80 18 94 08/24/23 22:40 78 21 91 08/24/23 22:30 80 22 08/24/23 22:30 155/105 H 08/24/23 22:20 90 22 08/24/23 22:10 82 21 08/24/23 22:01 99 H 23 08/24/23 22:01 172/128 H 08/24/23 22:00 83 21 08/24/23 21:50 90 24 08/24/23 21:40 80 22 08/24/23 21:30 80 22 08/24/23 21:30 142/103 H 08/24/23 21:20 102 H 24 08/24/23 21:10 79 23 08/24/23 21:08 86 21 08/24/23 21:08 158/112 H 08/24/23 21:00 77 21 96 08/24/23 20:54 156/101 H 08/24/23 20:54 79 24 08/24/23 20:50 78 23 08/24/23 20:40 76 23 08/24/23 20:30 73 17 98 08/24/23 20:20 77 16 O2 Del Method O2 Del Method 08/25/23 07:49 08/25/23 03:56 Room Air 08/25/23 03:00 Room Air 08/25/23 01:47 08/25/23 00:14 Room Air 08/25/23 00:14 Room Air 08/24/23 23:30 08/24/23 23:30 08/24/23 23:20 08/24/23 23:10 08/24/23 23:00 08/24/23 23:00 08/24/23 22:50 08/24/23 22:40 08/24/23 22:30 08/24/23 22:30 08/24/23 22:20 08/24/23 22:10 08/24/23 22:01 08/24/23 22:01 08/24/23 22:00 08/24/23 21:50 08/24/23 21:40 08/24/23 21:30 08/24/23 21:30 08/24/23 21:20 08/24/23 21:10 08/24/23 21:08 08/24/23 21:08 08/24/23 21:00 08/24/23 20:54 08/24/23 20:54 08/24/23 20:50 08/24/23 20:40 08/24/23 20:30 08/24/23 20:20 Laboratory Results 08/25/23 08/24/23 08/24/23 Range/Units 03:52 20:10 20:04 WBC 6.44 6.42 (4.8-10.8) K/ul RBC 4.03 L 3.91 L (4.20-5.40) M/uL Hgb 13.0 12.8 (12.0-16.0) g/dl POC Hgb 13.6 (12.0-16.0) g/dl Hct 39.6 39.1 (37.0-47.0) % POC Hct 40 (37-47) % MCV 98.3 100.0 (80.0-100.0) fL MCH 32.3 32.7 (25.0-34.0) pg MCHC 32.8 32.7 (32.0-36.0) g/dL RDW Std Deviation 56.6 H 57.8 H (36.4-46.3) fL RDW Coeff of Pablo 15.6 H 15.9 H (11.5-14.5) % Plt Count 181 195 (130-400) K/uL MPV 10.7 11.0 (9.4-12.4) fL Immature Gran % (Auto) 0.3 0.5 % Neut % (Auto) 70.6 64.6 % Lymph % (Auto) 14.9 19.9 % [place] % (Auto) 11.6 11.2 % Eos % (Auto) 2.3 3.3 % Baso % (Auto) 0.3 0.5 % Neut # (Auto) 4.54 4.15 (1.40-6.50) K/uL Lymph # (Auto) 0.96 L 1.28 (1.20-3.40) K/uL [place] # (Auto) 0.75 H 0.72 H (0.11-0.59) K/uL Eos # (Auto) 0.15 0.21 (0.00-0.50) K/uL Baso # (Auto) 0.02 0.03 (0.00-0.20) K/uL Immature Gran # (Auto) 0.02 0.03 (0.01-0.20) K/uL PT 11.3 (9.0-12.0) Seconds INR 1.0 (0.9-1.1) APTT 25 (21-31) Seconds PTT Ratio 0.9 POC Sodium 137 (135-144) mmol/L Sodium 137 137 (136-145) mmol/L POC Potassium 5.0 (3.3-5.0) mmol/L Potassium 4.6 5.0 (3.5-5.1) mmol/L POC Chloride 101 (101-112) mmol/L Chloride 102 102 (98-107) mmol/L Carbon Dioxide 29 31 (21-32) mmol/L POC Total CO2 30 (24-31) mmol/L Anion Gap 6 4 (3-11) POC Anion Gap 12.0 L (16-25) mmol/L POC BUN 20 H (7-18) mg/dl BUN 14 18 (6-23) mg/dl Creatinine 0.64 0.74 (0.6-1.2) mg/dl POC Creatinine 0.9 (0.6-1.3) mg/dl Est Cr Clr Drug Dosing Not Reportable Not Reportable Est GFR ( Amer) 96.3 87.4 ml/min Est GFR (Non-Af Amer) 83.1 75.4 ml/min BUN/Creatinine Ratio 21.9 H 24.3 H (10-20) Glucose 100 H 98 (70-99(Fasting)) mg/dl POC Glucose (other) 98 (70-99) mg/dl Estimat Average Glucose 126 mg/dl Hemoglobin A1c 6.0 H (4.5-5.6) % Calcium 8.8 9.0 (8.6-10.3) mg/dl POC Ioniz Calcium Chiquis 1.17 (1.12-1.32) mmol/l Magnesium 2.2 (1.7-2.4) mg/dl Total Bilirubin 0.7 (0.2-1.0) mg/dl AST 21 (13-39) U/L ALT 12 (7-52) U/L Alkaline Phosphatase 44 (34-104) U/L Troponin I High Sens 12.3 (0-14) pg/ml Total Protein 6.8 (6.0-8.3) gm/dl Albumin 3.6 (3.4-5.0) gm/dl Globulin 3.2 (2.5-4.0) gm/dl Albumin/Globulin Ratio 1.1 (0.9-2) Triglycerides 50 (0-150) mg/dl Cholesterol 148 (0-200) mg/dl LDL Cholesterol, Calc 76 mg/dl VLDL Cholesterol, Calc 10 (0-30) mg/dl HDL Cholesterol 62 mg/dl Cholesterol/HDL Ratio 2.4 (0-5) Medications Administered Current Inpatient Medications Acetaminophen (Acetaminophen 325 Mg Tab) 650 mg PO Q4H PRN PRN Reason: Pain or Fever Stop: 09/24/23 00:13 Alendronate Sodium (Alendronate Sodium 70 Mg Tab) 70 mg PO Fr@0700 REKHA Stop: 09/24/23 06:59 Anastrozole (Anastrozole 1 Mg Tab) 1 mg PO DAILY REKHA Stop: 09/24/23 08:59 Aspirin (Aspirin 81 Mg Ectab) 81 mg PO DAILY REKHA Stop: 09/24/23 08:59 Calcium/Vitamin D (Calcium 600mg + Vit D 400 Iu Tab) 1 tab PO DAILY REKHA Stop: 09/24/23 08:59 Carbidopa/Levodopa (Carbidopa/Levodopa 25/100mg Tab) 0.5 tab PO TID REKHA Stop: 09/24/23 08:59 Digoxin (Digoxin 0.125 Mg Tab) 0.125 mg PO MoWeFr@1600 [facility] Stop: 09/24/23 15:59 Docusate Sodium (Docusate Sodium 100 Mg Cap) 100 mg PO BID REKHA Stop: 09/24/23 08:59 Sodium Chloride (Nss) 1,000 mls @ 75 mls/hr IV .[id number] REKHA Stop: 09/24/23 00:13 Last Admin: 08/25/23 03:25 Dose: 75 mls/hr Melatonin (Melatonin 3 Mg Tab) 3 mg PO HS PRN PRN Reason: Insomnia Stop: 09/24/23 00:13 Metoprolol Succinate (Metoprolol Succ 50mg Ext Rel Tab) 50 mg PO QAM [facility] Stop: 09/24/23 08:59 Miscellaneous Information (Pharmacist Discharge Med Rec Consult) 1 each N/A UD PRN PRN Reason: Consult Stop: 09/24/23 00:13 Multivitamins (Multivitamin Tab) 1 tab PO DAILY [facility] Stop: 09/24/23 08:59 Nitroglycerin (Nitroglycerin Sl 0.4 Mg/Tab Tab) 0.4 mg SL Q5M PRN PRN Reason: Chest Pain Stop: 09/24/23 00:13 Polyethylene Glycol (Polyethylene (Miralax) 17 Gm Pack) 17 gm PO DAILY PRN PRN Reason: Constipation Stop: 09/24/23 00:13 Pravastatin Sodium (Pravastatin Sod 40 Mg Tab) 80 mg PO DAILY [facility] Stop: 09/24/23 08:59 Sennosides (Senna 8.6 Mg Tab) 8.6 mg PO BID [facility] Stop: 09/24/23 08:59
--- NOTE | 2023-08-25 09:33 | Neurology Consultation ---
Date of Consultation August 25, 2023 Assessment & Plan (1) Acute CVA (cerebrovascular accident): - Suspect likely has small vessel subcortical stroke to explain acute left sided hemiparesis - Continue ASA 81 mg daily - Obtain MRI Brain - Consider d/c anastrozole as this increases risk of stroke (2) Internal carotid artery dissection: - Appears same on prior CTA from 08/09, involving left proximal ICA - Continue ASA 81mg daily - Agree with vascular surgery evaluation, though expect medical management to be more appropriate than surgical - This lesion is not associated with the patients acute symptoms, it is on the wrong side - Recommend repeat CTA in 3months for reassessment (3) Chronic a-fib: - Eliquis on hold due to recent ICH - MRI brain September 12 and then consider restart Telehealth Consultation Telehealth Information Telehealth Information: I performed this visit using a real-time telehealth connection between my location and the patients location ([facility]). After connecting through interactive tele-video, patient was identified by name and date of and/or wristband check.Patient (or authorized healthcare represen michael) was informed that this was a telemedicine visit and it was being conducted confidentially over secure lines. My office door was closed and no one else was present in the room with me.Patient (or authorized healthcare sales representative trainee) provided consent to proceed with the visit, expressed an understanding of privacy and security of the telemedicine visit, and gave permission to have a hospital sales representative trainee in the room in order to assist with the visit and to conduct portions of the visit, as needed. I informed the patient (or authorized healthcare sales representative trainee) that I reviewed their record and presented the opportunity for them to ask any questions regarding the visit today. The patient agreed to participate. History of Present Illness Reason for Consultation: left sided weakness Attending Physician: Tam Sheehan MD History of Present Illness 83 y/o F with recent left temporal ICH, hx of AF (Eliquis on hold due to recent ICH), who was discharged from [facility] on 08/13 to rehab, now presents back to the hospital with complaint of left arm and leg weakness beginning yesterday at 4pm. Patient states that she has had left leg has had intermittent issues for 6wks or more but has new left arm weakness as of yesterday. She cannot move her left arm or leg; she also says they feel numb. She had previously complained of LLE weakness when she presented with L sided ICH. Her LLE had no obvious explanation on the basis of an acute left sided ICH. She has been off her Eliquis due to the ICH with plans to hold for one month. Denies CP or SOB. Denies vision or speech changes. Admits to new left sided weakness and numbness. Allergies Allergy/AdvReac Type Severity Reaction Status Date / Time ezetimibe AdvReac Intermediate Weakness Verified 08/24/23 21:41 chlorpheniramine AdvReac Mild "Antsy Verified 08/24/23 21:41 [From Chlor-Trimeton] Feeling" Home Medications Medication Instructions Recorded Confirmed Type calcium carbonate 600 mg-vitamin 1 tab PO DAILY 04/23/19 08/24/23 History D3 5 mcg (200 unit) tablet multivitamin 1 tab PO DAILY 04/23/19 08/24/23 History anastrozole 1 mg tablet (Arimidex) 1 mg PO DAILY 11/04/20 08/24/23 History alendronate 70 mg tablet (Fosamax) 70 mg PO FR@0900 04/05/22 08/24/23 History metoprolol succinate 100 mg 50 mg PO QAM 04/05/22 08/24/23 History tablet,extended release 24 hr spironolactone 25 mg tablet 12.5 mg PO SUMOWETHSA@0900 05/18/22 08/24/23 History aspirin 81 mg tablet,delayed 81 mg PO DAILY 09/12/22 08/24/23 History release digoxin 125 mcg (0.125 mg) tablet 125 mcg PO MOWEFR@0900 12/20/22 08/24/23 History melatonin 3 mg tablet 3 mg PO HS PRN Insomnia 12/20/22 08/24/23 History sennosides 8.6 mg tablet (Senokot) 8.6 mg PO BID 12/20/22 08/24/23 History docusate sodium 100 mg capsule 100 mg PO BID 05/18/23 08/24/23 History pravastatin 80 mg tablet 80 mg PO DAILY 05/18/23 08/24/23 History carbidopa 25 mg-levodopa 100 mg 0.5 tab PO TID 08/18/23 08/24/23 History tablet furosemide 40 mg tablet 40 mg PO QAM 08/18/23 08/24/23 History Patient History Medical History Combined systolic and diastolic heart failure Breast cancer, right 03/09/2020 Follicular lymphoma grade 3a Atrial fibrillation Neuroendocrine carcinoma of pancreas CVA (cerebral vascular accident) Cardiomyopathy Ventricular ectopy TIA (transient ischemic attack) 2009 - No Deficits Arthritis Follicular lymphoma Diagnosed 01/28/19 - Left Parotid Gland Surgical History S/P lumpectomy, right breast With SLN biopsy Dr. Matthew on 04/22/2020 Post-splenectomy History of superficial parotidectomy 01/28/19 - with facial nerve dissection and preservation History of tonsillectomy as a child History of colonoscopy 2018 History of hip replacement, total Left - 2007, Right - 2008 Family History Father , Passed age 88 of Kidney Cancer No problems noted. Mother , Passed age 83 of Alzheimers Disease No problems noted. Brother No problems noted. Sister ALL (acute lymphoblastic leukemia), Onset Age: 66 Now in remission Daughter No problems noted. Son No problems noted. 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 Other Information That Helps Us Care for You: No Feels Safe at Home: Yes Safety Concerns: Feels Safe At This Time Childhood Exposure to Second-Hand Smoke: Yes (Father Smoked in Home ) caffeine: Yes (4 cups of coffee/day ) Dental Care, Regularly: Yes Assistive Devices: Glasses, Walker and Wheelchair Review of Systems Negative unless noted in HPI Physical Exam Mental Status: AOX3, no aphasia, no dysarthria, normal attention CN: EMOI, mild right sided facial asymmetry, tongue midline Motor: LUE/LLE 0/5 power, RUE and RLE with intact antigravity power Sensory: impaired on the left Coordination: unable to perform with left Gait: deferred Reflexes: cannot be assessed via telemedicine Results & Data Vital Signs (Past 12 Hours) Vital Signs Pulse Pulse Resp BP BP Pulse Ox Pulse Ox 08/25/23 07:49 94 H 08/25/23 03:56 08/25/23 03:00 75 20 135/92 96 08/25/23 01:47 76 08/25/23 00:14 82 16 145/106 H 96 08/25/23 00:14 96 08/24/23 23:30 136/97 08/24/23 23:30 82 22 08/24/23 23:20 81 22 08/24/23 23:10 78 20 08/24/23 23:00 83 22 08/24/23 23:00 134/98 08/24/23 22:50 80 18 94 08/24/23 22:40 78 21 91 08/24/23 22:30 80 22 08/24/23 22:30 155/105 H 08/24/23 22:20 90 22 08/24/23 22:10 82 21 08/24/23 22:01 99 H 23 08/24/23 22:01 172/128 H 08/24/23 22:00 83 21 08/24/23 21:50 90 24 08/24/23 21:40 80 22 O2 Del Method O2 Del Method 08/25/23 07:49 08/25/23 03:56 Room Air 08/25/23 03:00 Room Air 08/25/23 01:47 08/25/23 00:14 Room Air 08/25/23 00:14 Room Air 08/24/23 23:30 08/24/23 23:30 08/24/23 23:20 08/24/23 23:10 08/24/23 23:00 08/24/23 23:00 08/24/23 22:50 08/24/23 22:40 08/24/23 22:30 08/24/23 22:30 08/24/23 22:20 08/24/23 22:10 08/24/23 22:01 08/24/23 22:01 08/24/23 22:00 08/24/23 21:50 08/24/23 21:40 Diagnostic Findings CTA Neck: I personally reviewed the CTA from 08/09 and compared with current -- the scans look unchanged by comparison, there is a small linear filling defect on previous CTA -- suspect this does represent a dissection flap.
--- NOTE | 2023-08-25 09:50 | Neurology Consultation ---
Date of Consultation August 25, 2023 Assessment & Plan (1) Acute CVA (cerebrovascular accident): History of Present Illness Attending Physician: Tam Sheehan MD History of Present Illness pt this morning alert and in NAD. pt states she has had problem with left leg and arm weakness more than [address] head negative with recent ICH left over. 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 chart reviewed. no TNKase given due to pt's recent bleed. 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 and moderate to severe TR, nocturnal hypoxemia and mild obstructive sleep apnea with oxygen nightly, hyperlipidemia with statin intolerance, history of pancreatic tumor s/p distal pancreatectomy/splenectomy, history of CVA, CKD stage III, history of NHL s/p radiation, history of breast cancer on Arimidex and patient was in the [facility] ER on August 09 with intermittent numbness of left lower extremity and impending doom and CAT scan showed acute intraparenchymal hemorrhage and patient was given Kcentra as she takes Eliquis at that time and she was transferred to [facility]. 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 And she has history of radiation to her left parotid gland which can cause cavernoma's as per [facility]. Etiology of the bleed was also likely cerebral amyloid angiopathy per Savanna cabrera Eliquis was stopped. Statin and aspirin was restarted at time of discharge. Plan was to repeat MRI scan in 1 month and at that time to discuss about restarting anticoagulation and she was discharged in stable condition on August 13 from [facility]. She again came to [facility] from [facility] on August 17 with fall and given her volume depletion gentle fluids were given and diuretics were held and she was discharged to SNF for rehab. Comes back today because around 4 PM she noted her left arm would not work. And also not able to move her left lower extremity. Patient is alert and oriented and able to give her history. Currently denies any headache. No blurred vision. No runny nose or sore throat. No cough. No difficulty swallowing. No chest pain or shortness of breath. No fevers. No nausea. No abdominal pain. Normal bowel and bladder movements. Prior to the today's e pisode was ambulating with walker. Hemodynamics are okay currently. Allergies Allergy/AdvReac Type Severity Reaction Status Date / Time ezetimibe AdvReac Intermediate Weakness Verified 08/24/23 21:41 chlorpheniramine AdvReac Mild "Antsy Verified 08/24/23 21:41 [From Chlor-Trimeton] Feeling" Home Medications Medication Instructions Recorded Confirmed Type calcium carbonate 600 mg-vitamin 1 tab PO DAILY 04/23/19 08/24/23 History D3 5 mcg (200 unit) tablet multivitamin 1 tab PO DAILY 04/23/19 08/24/23 History anastrozole 1 mg tablet (Arimidex) 1 mg PO DAILY 11/04/20 08/24/23 History alendronate 70 mg tablet (Fosamax) 70 mg PO FR@0900 04/05/22 08/24/23 History metoprolol succinate 100 mg 50 mg PO QAM 04/05/22 08/24/23 History tablet,extended release 24 hr spironolactone 25 mg tablet 12.5 mg PO SUMOWETHSA@0900 05/18/22 08/24/23 History aspirin 81 mg tablet,delayed 81 mg PO DAILY 09/12/22 08/24/23 History release digoxin 125 mcg (0.125 mg) tablet 125 mcg PO MOWEFR@0900 12/20/22 08/24/23 History melatonin 3 mg tablet 3 mg PO HS PRN Insomnia 12/20/22 08/24/23 History sennosides 8.6 mg tablet (Senokot) 8.6 mg PO BID 12/20/22 08/24/23 History docusate sodium 100 mg capsule 100 mg PO BID 05/18/23 08/24/23 History pravastatin 80 mg tablet 80 mg PO DAILY 05/18/23 08/24/23 History carbidopa 25 mg-levodopa 100 mg 0.5 tab PO TID 08/18/23 08/24/23 History tablet furosemide 40 mg tablet 40 mg PO QAM 08/18/23 08/24/23 History Patient History Medical History Combined systolic and diastolic heart failure Breast cancer, right 03/09/2020 Follicular lymphoma grade 3a Atrial fibrillation Neuroendocrine carcinoma of pancreas CVA (cerebral vascular accident) Cardiomyopathy Ventricular ectopy TIA (transient ischemic attack) 2009 - No Deficits Arthritis Follicular lymphoma Diagnosed 01/28/19 - Left Parotid Gland Surgical History S/P lumpectomy, right breast With SLN biopsy Dr. Matthew on 04/22/2020 Post-splenectomy History of superficial parotidectomy 01/28/19 - with facial nerve dissection and preservation History of tonsillectomy as a child History of colonoscopy 2017 History of hip replacement, total Left - 2007, Right - 2008 Family History Father , Passed age 88 of Kidney Cancer No problems noted. Mother , Passed age 83 of Alzheimers Disease No problems noted. Brother No problems noted. Sister ALL (acute lymphoblastic leukemia), Onset Age: 66 Now in remission Daughter No problems noted. Son No problems noted. 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 Other Information That Helps Us Care for You: No Feels Safe at Home: Yes Safety Concerns: Feels Safe At This Time Childhood Exposure to Second-Hand Smoke: Yes (Father Smoked in Home ) caffeine: Yes (4 cups of coffee/day ) Dental Care, Regularly: Yes Assistive Devices: Glasses, Walker and Wheelchair Review of Systems Review of Systems: All systems reviewed & are unremarkable except as noted in Subjective Constitutional: as per Subjective / HPI Eyes: as per Subjective / HPI Ear, Nose, Mouth, Throat: as per Subjective / HPI Respiratory: as per Subjective / HPI Cardiovascular: as per Subjective / HPI Gastrointestinal: as per Subjective / HPI Musculoskeletal: as per Subjective / HPI Integumentary: as per Subjective / HPI Neurologic: as per Subjective / HPI Psychiatric: as per Subjective / HPI Endocrine: as per Subjective / HPI Hematologic / Lymphatic: as per Subjective / HPI Allergy / Immunological: as per Subjective / HPI Exam (Neuro) Physical Exam: HEENT: normocephalic Neuro: Mental: AOx4, fluent speech, normal comprehension, no apraxia, no L/R confusion, no neglect CN: PERRL, Full EOM, symmetric face, intact sensation t/o face, midline T/U/P, Motor: No abnormal movements, LUE: 3/5 t/o and unable to open her left fist. LLE: 3-/5 t/o, not much movements. rt side 4+/5 t/o upper and lower. Sens: intact to touch b/l grossly Coord: intact rt arm. DTR: 1+ sym b/l Gait: deferred Impression: 83 yo female with acute left hemiparesis (at least 2 days old) in setting of atrial fib, cerebral amyloid angiopathy, recent left ICH. pt likely suffered another ischemic stroke on rt subcortical . Pt recently was at [facility] for ICH and had extensive stroke work up. Recommendations: -ASA for now. no OAC due to her bleed, s he likely can't be on OAC for life long given all her risks for bleed and age. consider watchmen device by cardiology as pt is not able to be on OAC for atrial fib. statins. pending mri. plenty of IVF, avoid hypotension. CTA finding is old. Again, I was consulted on this pt but it appears that she is actually [facility] pt. will sign off as [facility] neurology is seeing this pt. Chart reviewed I have spent more than 50% educating patient about potential diagnosis and neurological evaluation and coordinating care with patient's treatment team. Total time spent (including chart review and coordination of care): 60 min (this includes chart review). Results & Data Vital Signs (Past 12 Hours) Vital Signs Pulse Pulse Resp BP BP Pulse Ox Pulse Ox 08/25/23 07:49 94 H 08/25/23 03:56 08/25/23 03:00 75 20 135/92 96 08/25/23 01:47 76 08/25/23 00:14 82 16 145/106 H 96 08/25/23 00:14 96 08/24/23 23:30 136/97 08/24/23 23:30 82 22 08/24/23 23:20 81 22 08/24/23 23:10 78 20 04/25/24 23:00 83 22 08/24/23 23:00 134/98 08/24/23 22:50 80 18 94 08/24/23 22:40 78 21 91 08/24/23 22:30 80 22 08/24/23 22:30 155/105 H 08/24/23 22:20 90 22 08/24/23 22:10 82 21 08/24/23 22:01 99 H 23 08/24/23 22:01 172/128 H 08/24/23 22:00 83 21 08/24/23 21:50 90 24 O2 Del Method O2 Del Method 08/25/23 07:49 08/25/23 03:56 Room Air 08/25/23 03:00 Room Air 08/25/23 01:47 08/25/23 00:14 Room Air 08/25/23 00:14 Room Air 08/24/23 23:30 08/24/23 23:30 08/24/23 23:20 08/24/23 23:10 08/24/23 23:00 08/24/23 23:00 08/24/23 22:50 08/24/23 22:40 08/24/23 22:30 08/24/23 22:30 08/24/23 22:20 08/24/23 22:10 08/24/23 22:01 08/24/23 22:01 08/24/23 22:00 08/24/23 21:50 PG Care Time/CCT Total # of Minutes Spent Total Time Spent with Patient: Total time spent is greater than 50% in coordination of care (as documented) at patient's floor/unit and/or counseling patient: Coding Level of Care Code 46039 IN/OBS CONSULT LVL 4,60M Diagnoses Acute CVA (cerebrovascular accident) I63.9
--- NOTE | 2023-08-25 10:38 | Pharmacy Report ---
- Date of Service August 25, 2023 - Pharmacy CVA/TIA Medication Review Medications to Prevent Stroke handout has been added to the patients discharge packet. Antiplatelet(s) * Aspirin 81 mg daily Cholesterol * Pravastatin 80 mg daily * High intensity statin deferred due to age >75, history of hemorrhagic stroke. DVT Prophylaxis * SCD thigh Therapeutic Anticoagulation * Hx Afib/Aflutter noted, but anticoagulation is on hold due to recent ICH. Type 2 Diabetes * Patient does not have T2DM
[2023-08-25] MEDS: CARBIDOPA/LEVODOPA 25/100MG TAB PO SCH (10:57)
[2023-08-25] MEDS: MULTIVITAMIN TAB PO SCH (10:58)
[2023-08-25] MEDS: PRAVASTATIN SOD 40 MG TAB PO SCH (10:59)
[2023-08-25] MEDS: SENNA 8.6 MG TAB PO SCH (10:59)
[2023-08-25] MEDS: ALENDRONATE SODIUM 70 MG TAB PO SCH (11:00)
[2023-08-25] MEDS: ASPIRIN 81 MG ECTAB PO SCH (11:00)
[2023-08-25] MEDS: CALCIUM 600MG + VIT D 400 IU TAB PO SCH (11:00)
[2023-08-25] MEDS: METOPROLOL SUCC 50MG EXT REL TAB PO SCH (11:01)
[2023-08-25] MEDS: DOCUSATE SODIUM 100 MG CAP PO SCH (11:01)
[2023-08-25] MEDS: ANASTROZOLE 1 MG TAB PO SCH (11:02)
[2023-08-25] MEDS: GADOBUTROL 65ML VIAL IV ONE (12:27)
--- NOTE | 2023-08-25 12:35 | Cardiology Consultation ---
Date of Consultation August 25, 2023 Assessment & Plan (1) Internal carotid artery dissection: (2) Acute CVA (cerebrovascular accident): (3) Ambulatory dysfunction: (4) Combined systolic and diastolic heart failure: (5) Chronic a-fib: Plan 1. Systolic and diastolic CHF 2. Persistent AFIB -Recognized in 2019. [id number] Score 7 3. 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 Chronic partial LICA dissection flap 5. Chronic R parietal infarct 6. Frequent ventricular ectopy with VT 7. Nonischemic cardiomyopathy -LVEF 50 to 55%, 08/25/2023 8. Pulmonary HTN 9. MARGARET with hypoxemia -supplemental 02 QHS 10. HTN 11. HLD 12. CKD III 13. 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 Pancreatic neuroendocrine tumor -s/p pancreatectomy/splenectomy 2019 15. Hx TIA/CVA 16. R breast cancer -s/p lumpectomy/radiation 2019 on Arimidex. -Patient with acute L sided hemiparesis in setting of L parietal hemorrhagic infarct 08/10/2023 and chronic R parietal infarct -Patient with permanent AFIB, chronic L ICA dissection currently off AC. Will allow medicine/neurology determine if/when anticoagulation can be resumed. -Fortunately patient appears euvolemic on examination -Heart rate is well controlled with digoxin and toprol -Echocardiogram to be completed -Resume diuretics as tolerated Case discussed with Dr. Figueredo. I spent a total of 40 minutes on the date of service in preparation, delivery, and documentation of the care provided to this patient, excluding any time spent in the performance of separately billed services. Amara Jones PA-C Department of Cardiology, [facility] This chart was completed in part utilizing Speech Voice Recognition Software. Grammatical errors, random word insertions, pronoun errors, and incomplete sentences are an occasional consequence of this system due to software limitations, ambient noise, and hardware issues. Any formal questions or concerns about the content, text, or information contained within the body of this dictation should be directly addressed to the provider for clarification. Supervising Physician Co-Signing Physician Notes Attending attestation: Case reviewed with the advanced practitioner. I have personally performed a history and physical examination on the patient. I have reviewed the advanced practitioner's documentation on the date of service referenced in note, and I agree with, and take responsibility for the plan of care. Subjective: Patient complains of left arm left leg weakness, paresis. Per review of recent history, has a longstanding history of permanent atrial fibrillation, and previous stroke episodes dating back to 2009 and 2018. Past imaging dating back several years reveals a chronic dissection flap of the left internal carotid artery. Patient had been on chronic anticoagulation with Eliquis up until presenting initially to the emergency department at [facility] on 08/10/2023 with complaint of generalized illness and feeling like her left leg felt like a "block of ice "per the emergency department note at that time. CT of the head performed 08/10/2023 revealed an intraparenchymal hematoma in the left frontal lobe with surrounding edema and mass effect. Patient was transferred [place] [facility] and etiology of the intraparenchymal hemorrhage was felt to be either cerebral amyloid angiopathy versus cavernoma hemorrhage given her history of left parotid gland radiation. Patient now with both left lower extremity hemiparesis left upper extremity hemiparesis, MRI of the brain revealed a 3 mm acute ischemic infarct within the right high convexity of the right posterior frontal lobe. Again noted was a acute to subacute hemorrhagic focus in the left frontotemporal lobe measuring 22 x 14 mm. Multiple old infarcts noted as well. Exam: Cardiovascular irregular rhythm, no murmurs Neurologic: Conversant, left upper and left lower extremity edema, able to move toes on right side and moves right arm without limitation Data: Transthoracic echocardiogram performed today 08/25/2023 and interpret independently: Rate controlled atrial fibrillation was present during echocardiogram study. There is mild concentric left ventricular hypertrophy. There is borderline global hypokinesis of the left ventricle. Left ventricular systolic function is low normal. Left Ventricular Ejection Fraction = 50-55%. The left atrium is severely dilated. There is a complex 1.6 x 1.1 mobile echodensity visualized in the right atrium that appears to be adherent to the interatrial septum. Appearance suggests thrombus entrapped by a prominent eustachian valve, infectious vegetation, or other cardiac masses also possible. No interatrial shunt was detected with the administration of agitated saline contrast. Compared to the images obtained at the time of previous studies at this institution in March, and in September,, the echodensity in the right atrium is a new finding. A very mild right to left shunt was detected with bubble study performed in 2019 that cannot be reproduced on the present study. Impression/ Plan: At baseline, even prior to recent events patient is apparently not ambulatory and is mostly wheelchair-bound. I question the etiology of the echodensity in the right atrium. Possibly thrombus that has embolized from the lower extremities especially given her left leg paresis that has perhaps become entrapped in a prominent eustachian valve based on the location. Patient without infectious symptoms. The echodensity in the right atrium was not present on the previous echocardiograms performed at this institution in 2019 and 2022, and also reviewed her most recent echo study performed within the [facility] dating back to 2021, and per my personal review of the images, it was not there then. It could be that this is embolizing the of the interatrial septum to the systemic circulation, as a small PFO had previously been documented in 2019, however no significant bubbles were noted across the interatrial septum on high- quality agitated saline contrast today. I have requested a lower extremity venous duplex and I spoke to the electronic communications technician with regards to the rationale for performing the test. I have also ordered blood cultures x 2. If the right atrial echodensity and a is thrombus however patient is not a candidate for anticoagulation as previously noted due to the recent intraparenchymal hemorrhage of the brain. Continue aspirin. Case discussed at length with Dr. Onofre of the hospitalist service. I spent a total of 65 minutes coordinating, documenting, and providing care for this patient excluding time spent in the performance of separately billed services or time spent by another provider. 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 CT head with continued evolution of L parietal hemorrhagic infarct. No new hemorrhage. Chronic infarct of R parietal lobe. CTA with chronic L ICA partial dissection flap. Patient was evaluated at [facility] ED 08/09 with intermittent LE numbness. CT with intraparenchymal hemorrhage given Kcentra as she was taking Eliquis 5mg BID and transferred [place] [facility]. It was felt bleeding was due to cavernoma vs cerebral amyloid angiopathy. Eliquis was stopped, statin and ASA were started at discharge on 08/13. It was planned for repeat MRI in 1 month with discussion of restarting AC. Patient presented to [facility] ED 08/17 after fall at [facility]. Given gentle IV fluids for presumed volume depletion and diuretics were held. Discharged to SNF for rehab Upon examination patient is resting comfortably laying flat in bed. Patient reports she cannot move her L arm or leg. Tells me her left leg has been weak x6 weeks. She presented to the ED as she experienced progressive L arm weakness. Denies chest pain, shortness of breath, palpitations. Reports compliance with diuretics at home. Allergies Allergy/AdvReac Type Severity Reaction Status Date / Time ezetimibe AdvReac Intermediate Weakness Verified 08/24/23 21:41 chlorpheniramine AdvReac Mild "Antsy Verified 08/24/23 21:41 [From Chlor-Trimeton] Feeling" Home Medications Medication Instructions Recorded Confirmed Type calcium carbonate 600 mg-vitamin 1 tab PO DAILY 04/23/19 08/24/23 History D3 5 mcg (200 unit) tablet multivitamin 1 tab PO DAILY 04/23/19 08/24/23 History anastrozole 1 mg tablet (Arimidex) 1 mg PO DAILY 11/04/20 08/24/23 History alendronate 70 mg tablet (Fosamax) 70 mg PO FR@0900 04/05/22 08/24/23 History metoprolol succinate 100 mg 50 mg PO QAM 04/05/22 08/24/23 History tablet,extended release 24 hr spironolactone 25 mg tablet 12.5 mg PO SUMOWETHSA@0900 05/18/22 08/24/23 History aspirin 81 mg tablet,delayed 81 mg PO DAILY 09/12/22 08/24/23 History release digoxin 125 mcg (0.125 mg) tablet 125 mcg PO MOWEFR@0900 12/20/22 08/24/23 History melatonin 3 mg tablet 3 mg PO HS PRN Insomnia 12/20/22 08/24/23 History sennosides 8.6 mg tablet (Senokot) 8.6 mg PO BID 12/20/22 08/24/23 History docusate sodium 100 mg capsule 100 mg PO BID 05/18/23 08/24/23 History pravastatin 80 mg tablet 80 mg PO DAILY 05/18/23 08/24/23 History carbidopa 25 mg-levodopa 100 mg 0.5 tab PO TID 08/18/23 08/24/23 History tablet furosemide 40 mg tablet 40 mg PO QAM 08/18/23 08/24/23 History Patient History Medical History Combined systolic and diastolic heart failure Breast cancer, right 03/09/2020 Follicular lymphoma grade 3a Atrial fibrillation Neuroendocrine carcinoma of pancreas CVA (cerebral vascular accident) Cardiomyopathy Ventricular ectopy TIA (transient ischemic attack) 2009 - No Deficits Arthritis Follicular lymphoma Diagnosed 01/28/19 - Left Parotid Gland Surgical History S/P lumpectomy, right breast With SLN biopsy Dr. Matthew on 04/22/2020 Post-splenectomy History of superficial parotidectomy 01/28/19 - with facial nerve dissection and preservation History of tonsillectomy as a child History of colonoscopy 2018 History of hip replacement, total Left - 2007, Right - 2008 Family History Father , Passed age 88 of Kidney Cancer No problems noted. Mother , Passed age 83 of Alzheimers Disease No problems noted. Brother No problems noted. Sister ALL (acute lymphoblastic leukemia), Onset Age: 66 Now in remission Daughter No problems noted. Son No problems noted. 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 Other Information That Helps Us Care for You: No Feels Safe at Home: Yes Safety Concerns: Feels Safe At This Time Childhood Exposure to Second-Hand Smoke: Yes (Father Smoked in Home ) caffeine: Yes (4 cups of coffee/day ) Dental Care, Regularly: Yes Assistive Devices: Glasses, Walker and Wheelchair Review of Systems Review of Systems: All systems reviewed & are unremarkable except as noted in HPI & below Constitutional: + fatigue and + weakness Physical Exam Constitutional: WD/WN, vitals as above + ill appearing, + frail appearing and comfortable Eyes: PERRL, conjunctivae normal, anicteric sclerae Neck: trachea midline, no thyromegaly Respiratory: normal respiratory effort, lungs clear to auscultation Auscultation: no crackles, no rales, no rhonchi and no wheezes Cardiovascular: Rate/Rhythm: regular rhythm and + irregularly irregular Heart Sounds: normal S1, normal S2 and + murmur Vessels: no JVD Gastrointestinal (Abdomen): normal bowel sounds, soft, nontender, no hepatosplenomegaly Neurologic: PERRL, EOMI, accommodation nl, no face palsy, no dysarthria L sided hemiparesis Psychiatric: A+Ox3, euthymic affect Results & Data Vital Signs (Past 12 Hours) Vital Signs Pulse Pulse Resp BP Pulse Ox Pulse Ox O2 Del Method 08/25/23 10:54 77 22 129/93 97 Room Air 08/25/23 07:49 94 H 08/25/23 03:56 Room Air 08/25/23 03:00 75 20 135/92 96 Room Air 08/25/23 01:47 76 08/25/23 00:14 82 16 145/106 H 96 Room Air 08/25/23 00:14 96 O2 Del Method 08/25/23 10:54 08/25/23 07:49 08/25/23 03:56 08/25/23 03:00 08/25/23 01:47 08/25/23 00:14 08/25/23 00:14 Room Air Laboratory Results Cardiac Enzymes 08/24/23 Range/Units 20:04 AST 21 (13-39) U/L Troponin I High Sens 12.3 (0-14) pg/ml Coagulation 08/24/23 Range/Units 20:04 PT 11.3 (9.0-12.0) Seconds APTT 25 (21-31) Seconds Lipids 08/25/23 Range/Units 03:52 Triglycerides 50 (0-150) mg/dl Cholesterol 148 (0-200) mg/dl HDL Cholesterol 62 mg/dl Cholesterol/HDL Ratio 2.4 (0-5) CBC 08/24/23 08/25/23 Range/Units 20:04 03:52 WBC 6.42 6.44 (4.8-10.8) K/ul RBC 3.91 L 4.03 L (4.20-5.40) M/uL Hgb 12.8 13.0 (12.0-16.0) g/dl Hct 39.1 39.6 (37.0-47.0) % Plt Count 195 181 (130-400) K/uL Neut # (Auto) 4.15 4.54 (1.40-6.50) K/uL Lymph # (Auto) 1.28 0.96 L (1.20-3.40) K/uL Sharkey # (Auto) 0.72 H 0.75 H (0.11-0.59) K/uL Eos # (Auto) 0.21 0.15 (0.00-0.50) K/uL Baso # (Auto) 0.03 0.02 (0.00-0.20) K/uL Comprehensive Metabolic Panel 08/24/23 08/25/23 Range/Units 20:04 03:52 Sodium 137 137 (136-145) mmol/L Potassium 5.0 4.6 (3.5-5.1) mmol/L Chloride 102 102 (98-107) mmol/L Carbon Dioxide 31 29 (21-32) mmol/L BUN 18 14 (6-23) mg/dl Creatinine 0.74 0.64 (0.6-1.2) mg/dl Glucose 98 100 H (70-99(Fasting)) mg/dl Calcium 9.0 8.8 (8.6-10.3) mg/dl AST 21 (13-39) U/L ALT 12 (7-52) U/L Alkaline Phosphatase 44 (34-104) U/L Total Protein 6.8 (6.0-8.3) gm/dl Albumin 3.6 (3.4-5.0) gm/dl Diagnostic Findings EKG 08/24/2023 AFIB with PVC 79bpm Nonspecific ST and T wave abnormality CTA 08/24/2023 IMPRESSION: 1. No flow-limiting stenosis within the cervical vasculature. 2. Linear filling defect within the proximal left ICA either represents flow-related artifact or a partial dissection flap. 3. Somewhat beaded appearance of the ICAs left greater than right suspicious for fibromuscular dysplasia. CT HEAD 08/25/2023 IMPRESSION: Continued evolution of the left parietal hemorrhagic infarct. No new hemorrhage or mass-effect. ZIO 02/17/2023 1 run of Ventricular Tachycardia occurred lasting 7 beats with a max rate of 194 bpm (avg 178 bpm). Atrial Fibrillation occurred continuously (100% burden), ranging from 47-110 bpm (avg of 75 bpm). Isolated VEs were occasional (1.4%, 56047), VE Couplets were rare (<1.0%, 121), and VE Triplets were rare (<1.0%, 2). Ventricular Bigeminy and Trigeminy were present. 8 patient triggered events and 6 diary events were submitted for review. Events correlated with rate controlled atrial fibrillation and sensed premature ventricular contractions. No symptoms were associated with the 7 beat run of nonsustained ventricular tachycardia that was observed on 02/23/2023 at 11:56 a.m. ECHO 09/2022 @ [facility] There was atrial fibrillation with controlled ventricular rate The left ventricular size is normal. There is mild concentric LVH Borderline hypokinesis of LV The qualitative LV ejection fraction is 50-55% (normal). The left atrium is moderately enlarged There is mild tricuspid regurgitation Right ventricular systolic pressure is elevated 40-50mmHg In comparison to 2019 the LV function has improved slightly.
--- NOTE | 2023-08-25 12:41 | Electrocardiogram Report ---
Test Reason : Blood Pressure : / mmHG Vent. Rate : 079 BPM Atrial Rate : 000 BPM P-R Int : 000 ms QRS Dur : 076 ms QT Int : 364 ms P-R-T Axes : 000 -18 -21 degrees QTc Int : 417 ms Atrial fibrillation with premature ventricular or aberrantly conducted complexes Nonspecific ST and T wave abnormality Abnormal ECG When compared with ECG of 23-AUG-2023 03:30, Nonspecific T wave abnormality, improved in Lateral leads Confirmed by Jose Perkins ([id number]) on 08/25/2023 12:41:14 PM Referred By: Minesh Miguel [place] Confirmed By:Jose Perkins
--- NOTE | 2023-08-25 13:04 | Consultation ---
Date of Consultation August 25, 2023 Assessment & Plan (1) Internal carotid artery dissection: Pt with small focal L ICA dissection. This has not changed since previous neck CTA a few weeks ago. Would typically recommend anticoagulation for an acute/subacute dissection, however, she was recently hospitalized for ICH and AC was stopped. Will allow medicine/neurology to decide if/when she can restart AC. Her sx of L sided weakness would be more related to her R ICA, which does not demonstrate any significant abnormalities. No indications for vascular surgical intervention. Medical management recommended. Please call if needed. History of Present Illness Reason for Consultation: L ICA dissection Attending Physician: Tam Sheehan MD History of Present Illness 83 yo f with hx of a fib on AC, HTN, breast ca, lymphoma, CHF, hyperlipidemia, admitted with R hemispheric CVA sx, seen in consultation today for L ICA dissec tion noted on CTA neck. Pt is a poor historian. Per chart, pt was recently transferred to [facility] for ICH, and her eliquis was stopped. Pt states she has been having L sided leg weakness for past 6 weeks, but developed L arm weakness yesterday, so came to [facility]. Pt states her arm and leg won't move. Admits a mild generalized ADAMES. Denies fever, recent illness, chest pain, SOB, abd pain, N/V, rest pain, claudication, other complaints. CTA imaging demonstrates small focal L ICA dissection, no change from previous CTA a few weeks ago. Allergies Allergy/AdvReac Type Severity Reaction Status Date / Time ezetimibe AdvReac Intermediate Weakness Verified 08/24/23 21:41 chlorpheniramine AdvReac Mild "Antsy Verified 08/24/23 21:41 [From Chlor-Trimeton] Feeling" Home Medications Medication Instructions Recorded Confirmed Type calcium carbonate 600 mg-vitamin 1 tab PO DAILY 04/23/19 08/24/23 History D3 5 mcg (200 unit) tablet multivitamin 1 tab PO DAILY 04/23/19 08/24/23 History anastrozole 1 mg tablet (Arimidex) 1 mg PO DAILY 11/04/20 08/24/23 History alendronate 70 mg tablet (Fosamax) 70 mg PO FR@0900 04/05/22 08/24/23 History metoprolol succinate 100 mg 50 mg PO QAM 04/05/22 08/24/23 History tablet,extended release 24 hr spironolactone 25 mg tablet 12.5 mg PO SUMOWETHSA@0900 05/18/22 08/24/23 History aspirin 81 mg tablet,delayed 81 mg PO DAILY 09/12/22 08/24/23 History release digoxin 125 mcg (0.125 mg) tablet 125 mcg PO MOWEFR@0900 12/20/22 08/24/23 History melatonin 3 mg tablet 3 mg PO HS PRN Insomnia 12/20/22 08/24/23 History sennosides 8.6 mg tablet (Senokot) 8.6 mg PO BID 12/20/22 08/24/23 History docusate sodium 100 mg capsule 100 mg PO BID 05/18/23 08/24/23 History pravastatin 80 mg tablet 80 mg PO DAILY 05/18/23 08/24/23 History carbidopa 25 mg-levodopa 100 mg 0.5 tab PO TID 08/18/23 08/24/23 History tablet furosemide 40 mg tablet 40 mg PO QAM 08/18/23 08/24/23 History Patient History Medical History Combined systolic and diastolic heart failure Breast cancer, right 03/09/2020 Follicular lymphoma grade 3a Atrial fibrillation Neuroendocrine carcinoma of pancreas CVA (cerebral vascular accident) Cardiomyopathy Ventricular ectopy TIA (transient ischemic attack) 2009 - No Deficits Arthritis Follicular lymphoma Diagnosed 01/28/19 - Left Parotid Gland Surgical History S/P lumpectomy, right breast With SLN biopsy Dr. Matthew on 04/22/2020 Post-splenectomy History of superficial parotidectomy 01/28/19 - with facial nerve dissection and preservation History of tonsillectomy as a child History of colonoscopy 2018 History of hip replacement, total Left - 2007, Right - 2008 Family History Father , Passed age 88 of Kidney Cancer No problems noted. Mother , Passed age 83 of Alzheimers Disease No problems noted. Brother No problems noted. Sister ALL (acute lymphoblastic leukemia), Onset Age: 66 Now in remission Daughter No problems noted. Son No problems noted. 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 Other Information That Helps Us Care for You: No Feels Safe at Home: Yes Safety Concerns: Feels Safe At This Time Childhood Exposure to Second-Hand Smoke: Yes (Father Smoked in Home ) caffeine: Yes (4 cups of coffee/day ) Dental Care, Regularly: Yes Assistive Devices: Glasses, Walker and Wheelchair Review of Systems 2 Review of Systems: All systems reviewed & are unremarkable except as noted in HPI & below Physical Exam Constitutional: WD/WN, vitals as above healthy appearing and cooperative; not in distress Neck: trachea midline Respiratory: normal respiratory effort, lungs clear to auscultation Auscultation: + diminished lung sounds Cardiovascular: Rate/Rhythm: + irregularly irregular Vessels: femoral pulses present, posterior tibial pulses present, dorsalis pedis pulses present and radial pulses present; + abnormal peripheral pulses Extremities: normal capillary refill Gastrointestinal (Abdomen): Inspection/Auscultation: abdomen normal to inspection and normal bowel sounds Percussion/Palpation: abdomen soft; abdomen nontender Musculoskeletal: Extremities: extremities normal to inspection and + abnormal strength (LUE/LLE weakness) Skin: no rashes, warm and dry Neurologic: + focal motor deficit (LUE/LLE weakness) , awake and + confused (mildly) Psychiatric: Orientation: alert, oriented to person and oriented to place Affect: + depressed affect and + tearful affect Results & Data Vital Signs (Past 12 Hours) Vital Signs Pulse Pulse Resp BP Pulse Ox O2 Del Method 08/25/23 10:54 77 22 129/93 97 Room Air 08/25/23 07:49 94 H 08/25/23 03:56 Room Air 08/25/23 03:00 75 20 135/92 96 Room Air 08/25/23 01:47 76
--- NOTE | 2023-08-25 15:08 | Magnetic Resonance Report ---
Brain MRI WITH AND WITHOUT CONTRAST HISTORY: Acute left-sided hemorrhagic infarct. Follow-up. TECHNIQUE: Multiplanar multisequence MRI of the brain was performed both before and after the intrave nous administration of contrast. COMPARISON STUDY: Head CT 08/24/2023. FINDINGS: There is a 3 cm focus of restricted diffusion within the right high convexity at the right posterior frontal lobe consistent with an acute infarct. The midline structures are intact. Acute to subacute hemorrhagic focus again noted within the left frontotemporal lobe on axial image 15. This me asures approximately 22 x 14 mm. This is similar to the prior CT examination. There is surrounding va sogenic edema. This hemorrhagic focus also demonstrates a hemosiderin ring consistent with chronic ar eas of hemorrhage. There is cytotoxic edema associated with the acute infarct within the right high c onvexity. Additional areas of patchy T2 hyperintensity within the white matter of the supratentorial brain favor microvascular ischemic change. Multiple old small bilateral cerebellar hemisphere infarct s again noted. There is a punctate focus of susceptibility artifact within the left occipital lobe on axial image 14. The major vascular flow-voids at the skull base are well-maintained. The paranasal s inuses and mastoid air cells are clear. The orbits are unremarkable. Moderate atrophic changes seen w ithin the brain. There is an old right posterior parietal infarct, unchanged. Postcontrast sequences show no areas of abnormal enhancement. IMPRESSION: 1. There is a 3 cm acute infarct within the right high convexity right posterior frontal lobe. 2. There is again noted an acute to subacute hemorrhagic focus within the left frontotemporal lobe me asuring 22 x 14 mm. This is similar to the prior CT examination. This demonstrates a surrounding hemo siderin ring consistent with areas of chronic hemorrhage as well as surrounding vasogenic edema. No a bnormal enhancement identified. However, an underlying lesion such as a cavernoma or cerebral amyloid angiopathy is not excluded. Follow-up brain MRI in one month recommended to ensure complete resoluti on. 3. Additional old infarcts as described above. 4. This report was called/faxed to the referring physician following dictation. ACT 112: Negative or not required by law. Electronically signed by: Rasheed Carroll M.D. 08/25/2023 3:06 PM
--- NOTE | 2023-08-25 16:03 | Communication Note ---
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 Her IPH is stable on the MRI, but she is high risk for correction OAC. Recommend discuss Watchman device with cardiology.
--- NOTE | 2023-08-25 19:06 | Ultrasound Report ---
BILATERAL LOWER EXTREMITY VENOUS DOPPLER HISTORY: Acute pain and swelling of the lower legs DVT COMPARISON STUDY: 04/25/2019. FINDINGS: There is normal compressibility, flow, and augmentation within the right lower extremity de ep venous structures. Occlusive thrombus is noted within one of the duplicated left sided posterior t ibial veins extending from the proximal to the midportion of the vessel. IMPRESSION: 1. Left lower extremity DVT, likely acute. 2. No right lower extremity DVT. ACT 112: Negative or not required by law. Electronically signed by: Jacinto Walker M.D. 08/25/2023 7:03 PM
[2023-08-25] MEDS: DIGOXIN 0.125 MG TAB PO SCH (19:48)
[2023-08-25 23:48] VITALS: RESP 18
[2023-08-26] MEDS ORDERED: Nursing to Pharmacy Communication SCH (01:45)
[2023-08-26] MEDS: MELATONIN 3 MG TAB PO PRN (01:52)
--- OUTSIDE RECORDS SUMMARY | 2023-08-26 03:56 | External Medical Summary | Summary of Care ---
Author Name Unknown Organization [facility] Address [address] [place] [address] Phone [phone] Care Team Providers Care Chair Springer Name Role Phone Anastasia Reza DO Primary Care Provider [phone] Reason for Visit * Reason Onset Date Comments Advice 08/17/2023 Please advise, Encounter Details Date Type Department Care Team (Late st Contact Info) Description 08/17/2023 Telephone Family Practice [facility] [address] [place] [address] Anastasia Reza DO [address] [place] [address] Advice (Please advise, ) Allergies Active Allergy Reactions Criticality Noted Date Comments Chlorpheniramine 07/22/2016 Anxious Chlor Trimeton Ezetimibe High 04/05/2022 Other reaction(s): Weakness documented as of this encounter (statuses as of 08/23/2023) Medications Medication Sig Dispensed Refills Start Date [...] 1 Capsule by mouth in the morning. (08). 0 Active Pravastatin Sodium 80 MG Oral [...] as of this encounter (statuses as of 08/23/2023) Active Problems Problem Noted Date Diagnosed Date [...] as of this encounter (statuses as of 08/23/2023) Resolved Problems Problem Noted Date Diagnosed Date [...] as of this encounter (statuses as of 08/23/2023) Immunizations Name Administration Dates Next Due COVID-19 mRNA, LNP-s, No Pre serve, 2-Dose Series (Moderna) 07/04/2020,05/30/2020 COVID-19, mRNA, LNP-s, PF, B ooster, 100mcg/0.5mg (Moderna) 09/16/2021,03/22/2021 Covid-19, Mrna, Lnp-s, Pf, B ivalent, 30 Mcg, IM, 12 yrs and above (Pfizer) 01/24/2022 HIB PRP-OMP, 3 dose (Pedvax) 05/15/2019 [...] encounter Miscellaneous Notes * Telephone Encounter - Suzanne Marx RN - 08/23/2023 3:[address] Reza said that this was a decision for Neuro. * Telephone Encounter - Ruy Jung RN - 08/22/2023 6:26 PM EDT Attempted to call [facility] and spoke with Yaakov. He said there is no floor staff there at thistime and to call back from 8:00 am to 3:00 pm. Patient has appointment with Dr. Reza tomorrow 08/23/2023. * Telephone Encounter - Anastasia Reza DO - 08/17/2023 4:42 PM EDT 3T ordered by neurology on hospital discharge I'm not certain if regular local MRI will suffice Ft has f/u w/Jeanette Fraire PA-C on 09/18, CC'ed If felt acceptable we can schedule MRI locally in instead * Telephone Encounter - Mervin Abad OSA - 08/17/2023 1:24 PM EDT Please advise, Araceli the Nurse coordinator [facility] at [facility]. Called. And due to the ptneeding a 3T for this MRI, they cannot coordinate to travel to [facility]. She would like to know her other options for the pt so she can get this MRI completed. She asked if someone could please call her alexandro. Her # is [phone]. documented in this encounter Plan of Treatment Upcoming Encounters Date Type Department Care Team (Late st Contact Info) Description 08/29/2023 3:00 PM EDT [facility] [address] [place] [address] Anastasia Reza, DO [address] [place] [address] 09/19/2023 11:20 AM EDT Office Visit Neurology [facility] [address] [place] [address] Jeanette Fraire PA-C [address] [place] [address] 10/23/2023 10:00 AM EDT Office Visit Cardiology, [facility] [address] [place] [address] Michelle Gallagher CRNP [address] [place] [address] 10/31/2023 4:00 PM EDT [facility] [address] [place] [address] Anastasia Reza, DO [address] [place] [address] 02/01/2024 10:00 AM EDT Office Visit Neurology [facility] [address] [place] [address] Jeanette Fraire PA-C [address] [place] [address] Health Maintenance Due Date Last Done Comments DIG LEVEL FOR MEDICATION MONITORING YEARLY 07/24/1958 Depression Screening 02/28/2020 02/27/2019 Meningitis B Vaccine (Bexsero/Trumemba) (3 of 4 - Increased Risk Bexsero 2-dose series) 07/16/2020 07/17/2019, 05/15/2019 COVID-19 Vaccine (4 - 2022-24 season) 2022 01/24/2022, 09/16/2021, 03/22/2021, Additional history exists Albumin/Creatinine Ratio 09/09/2023 09/08/2022, 06/29 CKD PHOS USE SMARTSET 15407 01/14/2024 01/13/2023, 0 07/21/2020 GFR 02/12/2024 08/13/2023, 07/30, 08/11/2023, Additional history exists MENINGOCOCCAL (MENACTRA/MENVEO) (3 - Risk 2-dose series) 07/16/2024 07/17/2019, 05/15/2019 CKD HGB USE SMARTSET 23167 08/09/202408/09, 08/10/2023, 04/11/2023, Additional history exists DXA [...] Documents on File Type Date Recorded Patient Oil Change Technician Expl anation Power of Undraped Artist Model 07/13/2021 Teresa Aguilera in POWER OF C D AREA SUPERVISOR Latest Code Status on File Code Status [...] Da Silva Adult Child Health Care Agen ivory (per Health Care Power of Undraped Artist Model document) [email or web address] Asim Manrique Alternate Health Care Agent (per Health Care Power of Undraped Artist Model document) Care Teams Chair Springer Relationship Specialty Start Date End Date Anastasia Reza DO [address] [place] [address] PCP - General Family Medicine 07/22/16 documented as of this encounter
--- OUTSIDE RECORDS SUMMARY | 2023-08-26 03:56 | External Medical Summary | Summary of Care ---
Author Name Unknown Organization [facility] Address [address] [place] [address] Phone [phone] Care Team Providers Care Elevator Operator Freight Name Role Phone Anastasia Reza DO Primary Care Provider [phone] Reason for Visit * Reason Onset Date Comments Advice 08/17/2023 Please advise, Encounter Details Date Type Department Care Team (Late st Contact Info) Description 08/17/2023 Telephone Family Practice [facility] [address] [place] [address] Anastasia Reza DO [address] [place] [address] Advice (Please advise, ) Allergies Active Allergy [...] Overview: found at left parotid, following with [facility] History of CVA (cerebrovascular accident) [...] encounter Miscellaneous Notes * Telephone Encounter - Ruy Jung RN - 08/22/2023 6:26 PM EDT Attempted to call [facility] [place] and spoke with Yaakov. He said there [...] EDT Please advise, [facility]eli [facility] Called. And due to the ptneeding a 3T for this MRI, they cannot coordinate to travel to [facility]. She would like to know her other options for the pt so she can get this MRI completed. She asked if someone could please call her alexandro. Her # is [phone]. documented in this encounter Plan of Treatment Upcoming Encounters Date Type Department Care Team (Late st Contact Info) Description 08/29/2023 3:00 PM EDT Office Visit Family [facility] [address] [place] [address] [address] Anastasia Reza DO [address] [place] [address] 09/19/2023 11:20 AM EDT [facility] [address] [facility] [place] [address] Jeanette Fraire PA-C [address] [facility] [place] [address] 10/23/2023 10:00 AM EDT Office Visit Cardiology, [facility] [address] [place] [address] Michelle Gallagher CRNP [address] [place] [address] 10/31/2023 4:00 PM EDT Office Visit Family Practice [facility] [address] [place] [address] Anastasia Reza DO [address] [facility] [place] [address] 02/01/2024 10:00 AM EDT Office Visit Neurology [facility] [place] [address] [facility] [address] [place] [address] Jeanette Fraire PA-C [address] [facility] [place] [address] Health Maintenance Due Date Last Done Comments DIG LEVEL FOR MEDICATION MONITORING YEARLY 07/24/1958 Depression Screening 02/28/2020 02/27/2019 Meningitis B Vaccine (Bexsero/Trumemba) (3 of 4 - Increased Risk Bexsero 2-dose series) 07/16/2020 07/17/2019, 05/15/2019 COVID-19 Vaccine (4 - 2022- season) 2022 01/24/2022, 09/16/2021, 03/22/2021, Additional history exists Albumin/Creatinine Ratio 09/09/2023 09/08/2022, 06/29 CKD PHOS USE SMARTSET 88314 01/14/2024 01/13/2023, 0 07/21/2020 GFR 02/12/2024 08/13/2023, 04/06/2023, 08/11/2023, Additional history exists MENINGOCOCCAL (MENACTRA/MENVEO) (3 - Risk 2-dose series) 07/16/2024 07/17/2019, 05/15/2019 CKD HGB USE SMARTSET 37477 08/09/202408/09, 08/10/2023, 04/11/2023, Additional history exists DXA [...] Documents on File Type Date Recorded Patient Machines Technician Expl anation Power of Hazmat Technician 07/13/2021 Teresa Crowder [place] in POWER OF ASPHALT PATCHER Latest Code Status on File Code Status [...] Agen t (per Health Care Power of Hazmat Technician document) [email or web address] Asim Manrique Alternate Health Care Agent (per Health Care Power of Hazmat Technician document) Care Teams Elevator Operator Freight Relationship Specialty Start Date End Date Anastasia Reza DO [address] [place] [address] PCP - General Family Medicine 07/22/16 documented as of this encounter
--- OUTSIDE RECORDS SUMMARY | 2023-08-26 05:03 | External Medical Summary | Summary of Care ---
Author Name Unknown Organization [facility] Address [address] [place] [address] Phone [phone] Care Team Providers Care Real Time Operator Name Role Phone Anastasia Reza DO Primary Care Provider [phone] Reason for Visit * Reason Onset Date Comments Advice 08/17/2023 Please advise, Encounter Details Date Type Department Care Team (Late st Contact Info) Description 08/17/2023 Telephone Family Practice [facility] [address] [place] [address] Anastasia Reza DO [address] [place] [address] Advice (Please advise, ) Allergies Active Allergy Reactions Criticality Noted Date Comments Chlorpheniramine 07/22/2016 Anxious Chlor Trimeton Ezetimibe High 04/05/2022 Other reaction(s): Weakness documented as of this encounter (statuses as of 08/24/2023) Medications Medication Sig Dispensed Refills Start Date [...] as of this encounter (statuses as of 08/24/2023) Active Problems Problem Noted Date Diagnosed Date [...] at left parotid, following with [facility] History of CVA (cerebrovascular accident) 2016 documented as of this encounter (statuses as of 08/24/2023) Resolved Problems Problem Noted Date Diagnosed Date [...] as of this encounter (statuses as of 08/24/2023) Immunizations Name Administration Dates Next Due COVID-19 [...] 3:00 pm. Patient has appointment with Dr. eRza tomorrow 08/23/2023. * Telephone Encounter - Anastasia [...] Araceli the Nurse coordinator [facility] at [facility]. Called. And due to the ptneeding a 3T for this MRI, they cannot coordinate to travel to [facility]. She would like to know her other options for the pt so she can get this MRI completed. She asked if someone could please call her alexandro. Her # is [phone]. documented in this encounter Plan of Treatment Upcoming Encounters Date Type Department Care Team (Late st Contact Info) Description 08/29/2023 3:00 PM EDT Office Visit [facility] [address] [place] [address] Anastasia Reza, DO [address] [place] [address] 09/19/2023 11:20 AM EDT Office Visit Neurology [facility] [address] [place] [address] Jeanette Fraire PA-C [address] [place] [address] 10/23/2023 10:00 AM EDT Office Visit Cardiology, [facility] [address] [place] [address] Michelle Gallagher CRNP [address] [place] [address] 10/31/2023 4:00 PM EDT Office Visit [facility] [address] [place] [address] Anastasia Reza, DO [address] [place] [address] 02/01/2024 10:00 AM EDT Office Visit Neurology [facility] [address] [place] [address] Jeanette Fraire PA-C [address] [place] [address] Health Maintenance Due Date Last Done Comments DIG LEVEL FOR MEDICATION MONITORING YEARLY 07/24/1958 Depression Screening 02/28/2020 02/27/2019 Meningitis B Vaccine (Bexsero/Trumemba) (3 of 4 - Increased Risk Bexsero 2-dose series) 07/16/2020 07/17/2019, 05/15/2019 COVID-19 Vaccine (4 - 2022-24 season) 2022 01/24/2022, 09/16/2021, 03/22/2021, Additional history exists Albumin/Creatinine Ratio 09/09/2023 09/08/2022, 06/29 CKD PHOS USE SMARTSET 86210 01/14/2024 01/13/2023, 0 07/21/2020 GFR 02/12/2024 08/13/2023, 07/30, 08/11/2023, Additional history exists MENINGOCOCCAL (MENACTRA/MENVEO) (3 - Risk 2-dose series) 07/16/2024 07/17/2019, 05/15/2019 CKD HGB USE SMARTSET 52646 08/09/202408/09, 08/10/2023, 04/11/2023, Additional history exists DXA [...] Documents on File Type Date Recorded Patient Manager File Expl anation Power of Smudger 07/13/2021 Teresa Aguilera in POWER OF ASSEMBLER SMALL PRODUCTS Latest Code Status on File Code Status [...] Agen ivory (per Health Care Power of Smudger document) [email or web address] Asim Manrique Alternate Health Care Agent (per Health Care Power of Smudger document) Care Teams Real Time Operator Relationship Specialty Start Date End Date Anastasia Reza DO [address] [place] [address] PCP - General Family Medicine 07/22/16 documented as of this encounter
--- OUTSIDE RECORDS SUMMARY | 2023-08-26 05:03 | External Medical Summary | Summary of Care ---
Author Name Unknown Organization [facility] Address [address] [place] [address] Phone [phone] Care Team Providers Care Order Entry Representative Name Role Phone Anastasia Reza DO Primary Care Provider [phone] Reason for Visit * Reason Onset Date Comments Advice 08/17/2023 Please advise, Encounter Details Date Type Department Care Team (Late st Contact Info) Description 08/17/2023 Telephone Family Practice [facility] [address] [place] [address] Anastasia Reza DO [address] [place] [address] Advice (Please advise, ) Allergies Active Allergy [...] Overview: found at left parotid, following with [facility] History of CVA (cerebrovascular accident) [...] encounter Miscellaneous Notes * Telephone Encounter - Ct Burnett, MED ASSIST - 08/24/2023 2:11 PM EDT [place], do you know any other options etc? * Telephone Encounter - Suzanne Marx, RN - 08/23/2023 3:[address] Reza said that this was a decision for Neuro. * Telephone Encounter - Ruy Jung RN - 08/22/2023 6:26 PM EDT [facility]. He said there [...] EDT Please advise, Araceli the Nurse coordinator [facility]. Called. And due to the ptneeding a 3T for this MRI, they cannot coordinate to travel to [facility]. She would like to know her other options for the pt so she can get this MRI completed. She asked if someone could please call her alexandro. Her # is [phone]. documented in this encounter Plan of Treatment Upcoming Encounters Date Type Department Care Team (Late st Contact Info) Description 08/29/2023 3:00 PM EDT Office Visit Family [facility] [address] [address] [address] Anastasia Reza, [address] [place] [address] 09/19/2023 11:20 AM EDT Office Visit Neurology [facility] [address] [place] [place] [address] Jeanette Fraire PA-C [address] [facility] [place] [address] 10/23/2023 10:00 AM EDT Office Visit Cardiology, [facility] [address] [place] [address] Michelle Gallagher CRNP [address] [place] [address] 10/31/2023 4:00 PM EDT Office Visit Family [facility] [address] [place] [address] [address] Anastasia Reza, [address] [place] [address] 02/01/2024 10:00 AM EDT Office Visit Neurology [facility] [place] [address] [place] [address] [place] [address] Jeanette Fraire PA-C [address] [facility] [place] [address] Health Maintenance Due Date Last Done Comments DIG LEVEL FOR MEDICATION MONITORING YEARLY 07/24/1958 Depression Screening 02/28/2020 02/27/2019 Meningitis B Vaccine (Bexsero/Trumemba) (3 of 4 - Increased Risk Bexsero 2-dose series) 07/16/2020 07/17/2019, 05/15/2019 COVID-19 Vaccine (4 - season) 2022 01/24/2022, 09/16/2021, 03/22/2021, Additional history exists Albumin/Creatinine Ratio 09/09/2023 09/08/2022, 06/29 CKD PHOS USE SMARTSET 47216 01/14/2024 01/13/2023, 0 07/21/2020 GFR 02/12/2024 08/13/2023, 07/30, 08/11/2023, Additional history exists MENINGOCOCCAL (MENACTRA/MENVEO) (3 - Risk 2-dose series) 07/16/2024 07/17/2019, 05/15/2019 CKD HGB USE SMARTSET 97903 08/09/202408/09, 08/10/2023, 04/11/2023, Additional history exists DXA [...] Documents on File Type Date Recorded Patient Roll Up Helper Expl anation Power of Group Sales Representative 07/13/2021 Teresa Aguilera in POWER OF BRIDGE WORKER Latest Code Status on File Code Status Date Activated Date Inactivated Comments Full Code 08/10/2023 9:52 AM 08/14/2023 10:19 PM This order reflects the patients wishes and were consensually agreed upon. Question Answer Comments Discussion of Advance Directives occurred with: Not Discussed due to patient's condition Healthcare Agents on File Name Relationship Healthcare Agent Relationship Communication Teresa Da Silva Adult Child Health Care Agepaul dodson (per Health Care Power of Group Sales Representative document) [email or web address] Asim Manrique Alternate Health Care Agent (per Health Care Power of Group Sales Representative document) Care Teams Order Entry Representative Relationship Specialty Start Date End Date Anastasia Reza DO [address] [address] PCP - General Family Medicine 07/22/16 documented as of this encounter
--- OUTSIDE RECORDS SUMMARY | 2023-08-26 05:03 | External Medical Summary | Summary of Care ---
Author Name Unknown Organization [facility] Address [address] [place] [address] Phone [phone] Care Team Providers Care Grain Elevator Operator Name Role Phone Anastasia Reza DO Primary Care Provider [phone] Reason for Visit * Reason Onset Date Comments Advice 08/17/2023 Please advise, Encounter Details Date Type Department Care Team (Late st Contact Info) Description 08/17/2023 Telephone Family Practice [facility] [address] [place] [address] Anastasia Reza DO [address] [place] [address] Advice (Please advise, ) Allergies Active Allergy [...] Overview: found at left parotid, following with [facility] cancer center History of CVA (cerebrovascular accident) [...] 08/22/2023 6:26 PM EDT [facility] [...] MRI, they cannot coordinate to travel to [facility]. She would like to know her other options for the pt so she can get this MRI completed. She asked if someone could please call her alexandro. Her # is [phone]. documented in this encounter Plan of Treatment Upcoming Encounters Date Type Department Care Team (Late st Contact Info) Description 08/29/2023 3:00 PM EDT Office Visit Family [facility] [address] [address] Anastasia Reza, [address] [address] 09/19/2023 11:20 AM EDT Office Visit Neurology [facility] [address] [place] [place] [address] Jeanette Fraire PA-C [address] [facility] [place] [address] 10/23/2023 10:00 AM EDT Office Visit Cardiology, [facility] [address] [place] [address] Michelle Gallagher CRNP [address] [place] [address] 10/31/2023 4:00 PM EDT Office Visit Family [facility] [address] [address] Anastasia Reza, [address] [address] 02/01/2024 10:00 AM EDT Office Visit Neurology [facility] [address] [place] [place] [address] Jeanette Fraire PA-C [address] [facility] [place] [address] Health Maintenance Due Date Last Done Comments DIG LEVEL FOR MEDICATION MONITORING YEARLY 07/24/1958 Depression Screening 02/28/2020 02/27/2019 Meningitis B Vaccine (Bexsero/Trumemba) (3 of 4 - Increased Risk Bexsero 2-dose series) 07/16/2020 07/17/2019, 05/15/2019 COVID-19 Vaccine (4 - season) 2022 01/24/2022, 09/16/2021, 03/22/2021, Additional history exists Albumin/Creatinine Ratio 09/09/2023 09/08/2022, 06/29 CKD PHOS USE SMARTSET 81125 01/14/2024 01/13/2023, 0 07/21/2020 GFR 02/12/2024 08/13/2023, 07/30, 08/11/2023, Additional history exists MENINGOCOCCAL (MENACTRA/MENVEO) (3 - Risk 2-dose series) 07/16/2024 07/17/2019, 05/15/2019 CKD HGB USE SMARTSET 92694 08/09/202408/09, 08/10/2023, 04/11/2023, Additional history exists DXA [...] Documents on File Type Date Recorded Patient Garment Presser Expl anation Power of Back Tender Insulation Board 07/13/2021 Teresa Aguilera in POWER OF RANCH HAND LIVESTOCK Latest Code Status on File Code Status [...] Agepaul dodson (per Health Care Power of Back Tender Insulation Board document) [email or web address] Asim Manrique Alternate Health Care Agent (per Health Care Power of Back Tender Insulation Board document) Care Teams Grain Elevator Operator Relationship Specialty Start Date End Date Anastasia Reza DO [address] [address] PCP - General Family Medicine 07/22/16 documented as of this encounter
--- OUTSIDE RECORDS SUMMARY | 2023-08-26 05:03 | External Medical Summary | Summary of Care ---
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 He said there [...] Araceli the Nurse coordinator Benny sharp at [facility]. Called. And due to the ptneeding a 3T for this MRI, they cannot coordinate to travel to [facility]. She would like to know her other options for the pt so she can get this MRI completed. She asked if someone could please call her alexandro. Her # is [phone]. documented in this encounter Plan of Treatment Upcoming Encounters Date Type Department Care Team (Late st Contact Info) Description 08/29/2023 3:00 PM EDT Office Visit Family [facility] [address] [address] Anastasia Reza, [address] [address] 09/19/2023 11:20 AM EDT Office Visit Neurology [facility] [address] [place] [address] [address] Jeanette Fraire PA-C [address] [facility] [place] [address] 10/23/2023 10:00 AM EDT Office Visit Cardiology, [facility] [address] [place] [address] Michelle Gallagher CRNP [address] [place] [address] 10/31/2023 4:00 PM EDT Office Visit Family [facility] [address] [address] Anastasia Reza, [address] [address] 02/01/2024 10:00 AM EDT Office Visit Neurology [facility] [place] [address] [place] [address] [address] Jeanette Fraire PA-C [address] [facility] [place] [address] Health Maintenance Due Date Last Done Comments DIG LEVEL FOR MEDICATION MONITORING YEARLY 07/24/1958 Depression Screening 02/28/2020 02/27/2019 Meningitis B Vaccine (Bexsero/Trumemba) (3 of 4 - Increased Risk Bexsero 2-dose series) 07/16/2020 07/17/2019, 05/15/2019 COVID-19 Vaccine (4 - season) 2022 01/24/2022, 09/16/2021, 03/22/2021, Additional history exists Albumin/Creatinine Ratio 09/09/2023 09/08/2022, 06/29 CKD PHOS USE SMARTSET 64744 01/14/2024 01/13/2023, 0 07/21/2020 GFR 02/12/2024 08/13/2023, 07/30, 08/11/2023, Additional history exists MENINGOCOCCAL (MENACTRA/MENVEO) (3 - Risk 2-dose series) 07/16/2024 07/17/2019, 05/15/2019 CKD HGB USE SMARTSET 59517 08/09/202408/09, 08/10/2023, 04/11/2023, Additional history exists DXA [...] Documents on File Type Date Recorded Patient Lumber Straightened Expl anation Power of Manager Route 07/13/2021 Teresa Aguilera in POWER OF TELECOM NETWORK MANAGER Latest Code Status on File Code [...] Agepaul dodson (per Health Care Power of Manager Route document) [email or web address] Asim Manrique Alternate Health Care Agent (per Health Care Power of Manager Route document) Care Teams Circuit Recorder Relationship Specialty Start Date End Date Anastasia Reza DO [address] [address] PCP - General Family Medicine 07/22/16 documented as of this encounter
[2023-08-26 07:20] LABS: Basophils # (auto) 0.03 K/uL (0.00-0.20); Basophils % (auto) 0.5 %; Eosinophils # (auto) 0.19 K/uL (0.00-0.50); Eosinophils % (auto) 3.3 %; Hematocrit (blood only) 38.6 % (37.0-47.0); Hemoglobin 12.5 g/dl (12.0-16.0); Immature Granulocytes # (auto) 0.02 K/uL (0.01-0.20); Immature Granulocytes % (auto) 0.4 %; Lymphocytes # (auto) 1.04 K/uL (1.20-3.40); Lymphocytes % (auto) 18.2 %; Mean Corpuscular Hemoglobin 32.1 pg (25.0-34.0); Mean Corpuscular Hgb Conc 32.4 g/dL (32.0-36.0); Mean Corpuscular Volume 99.2 fL (80.0-100.0); Mean Platelet Volume 10.8 fL (9.4-12.4); Monocytes # (auto) 0.62 K/uL (0.11-0.59); Monocytes % (auto) 10.9 %; Neutrophils % (auto) 66.7 %; Platelet Count 192 K/uL (130-400); RDW Coefficient of Variation 15.3 % (11.5-14.5); RDW Standard Deviation 56.1 fL (36.4-46.3); Red Blood Count 3.89 M/uL (4.20-5.40)
[2023-08-26 07:23] LABS: Calcium 7.9 mg/dl (8.6-10.3); Creatinine Clr Calc Pharmacy 61.5 ml/min; Est GFR (African American) 97.8 ml/min; Est GFR (Non-African American) 84.4 ml/min; Magnesium 1.9 mg/dl (1.7-2.4); Phosphorus 3.5 mg/dl (2.5-4.9); Potassium 4.3 mmol/L (3.5-5.1)
--- NOTE | 2023-08-26 10:50 | Communication Note ---
Date of Service: August 26, 2023 A transthoracic echocardiogram was performed on 08/25/2023 for evaluation of cardiac source of cerebral embolism given new ischemic stroke findings in the s etting of persistent atrial fibrillation. Patient has been off of anticoagulation since 08/10/2023 due to an intraparenchymal hemorrhage as already noted. Echocardiogram reveals borderline global left ventricular hypokinesis, LVEF in the range of 50 to 55% which is relatively stable compared to previous. Severe left atrial enlargement noted. A 1.6 cm x 1.1 cm mobile echodensity was visualized in the right atrium that appears to be adherent to the interatrial septum. Appearance suggests thrombus entrapped by prominent eustachian valve, infectious vegetation or other cardiac mass also possibility. No interatrial shunt was detected with administration of agitated saline contrast. Compared to the images obtained at the time of previous studies at [facility] in March, and in September, a prominent eustachian valve was noted in the past, but the mobile echodensity is a new finding. Images of the patient's most recent outpatient echocardiogram within the [facility] system dating back to 2021 also reviewed, without mobile echodensity in the right atrium noted on that study as well. Very mild right to left interatrial shunt was detected on a bubble study performed on a transthoracic echocardiogram at [facility] in 2019, but no atrial shunt noted on the present echo. Patient felt to have risk factors for lower extremity DVT as she has been off of anticoagulation, and has left leg hemiparesis and 3 recent hospital stays. 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 Clinically, it would appear that the left lower extremity DVT and a mobile density in the right atrium are related. As noted, patient not an anticoagulation candidate at present due to recent intraparenchymal cerebral hemorrhage. Case reviewed with Dr. Sheehan, who is reaching out to vascular surgery with regards to placing an inferior vena cava filter at this institution or by way of transfer to [facility]. If inferior vena cava filter performed, would avoid access via the internal jugular vein for fear of dislodging right atrial thrombus on the way to the inferior vena cava. Catheter aspiration of the right atrial mass is also a consideration. It is noted however that the patient is very frail, limited mobility at baseline as she is mostly wheelchair-bound. Rubén Figueredo, DO
[2023-08-26] MEDS: OPTIRAY 320 125ml IV ONE (10:59)
--- NOTE | 2023-08-26 11:23 | Discharge Summary ---
Date of Service August 26, 2023 Admission HPI Per Admitting Provider 83-year-old female past medical history significant for chronic atrial fibrillation, frequent ventricular ectopy, systolic and diastolic CHF, valvular heart disease with mild MR and moderate to severe TR, nocturnal hypoxemia and mild obstructive sleep apnea with oxygen nightly, hyperlipidemia with statin intolerance, history of pancreatic tumor s/p distal pancreatectomy/splenectomy, history of CVA, CKD stage III, history of NHL s/p radiation, history of breast cancer on Arimidex and patient was in the [facility] ER on August 09 with intermittent numbness of left lower extremity and impending doom and CAT scan showed acute intraparenchymal hemorrhage and patient was given Kcentra as she takes Eliquis at that time and she was transferred to [facility]. 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 And she has history of radiation to her left parotid gland which can cause cavernoma's as per [facility]. Etiology of the bleed was also likely cerebral amyloid angiopathy per [place] . Eliquis was stopped. Statin and aspirin was restarted at time of discharge. Plan was to repeat MRI scan in 1 month and at that time to discuss about restarting anticoagulation and she was discharged in stable condition on August 13 from [facility]. She again came to [facility] from [facility] on August 17 with fall and given her volume depletion gentle fluids were given and diuretics were held and she was discharged to SNF for rehab. Comes back today because around 4 PM she noted her left arm would not work. And also not able to move her left lower extremity. Patient is alert and oriented and able to give her history. Currently denies any headache. No blurred vision. No runny nose or sore throat. No cough. No difficulty swallowing. No chest pain or shortness of breath. No fevers. No nausea. No abdominal pain. Normal bowel and bladder movements. Prior to the today's episode was ambulating with walker. Hemodynamics are okay currently. Past med history. As mentioned above Past surgical history. Right breast biopsy. Dental surgery. Right partial mastectomy. Left removal of parotid gland. Tonsillectomy. Bilateral total hip replacements. Social history. No smoking. No alcohol use. No drug use. Family history. Mother had hypertension. Renal and prostate cancer. Sister has cancer. Brother has hypertension. Admission Exam Per Admitting Provider General- Not in distress Head- atraumatic Eyes- PERRL.EOMI ENT- oropharynx clear Neck- supple, no JVD. Lungs- clear to auscultation no wheezing or crackles. Heart- regular rhythm; no murmur, no gallop. Abdomen- normal bowel sounds, soft, nontender, no distension. Extremities- mild pretibial edema, no erythema seen. Neuro- alert, oriented x 3; PERRL, EOMI; no facial palsy; no dysarthria; weakness in let extremities(flaccid). Principal Diagnosis Acute CVA RA mass LLE DVT Hx of IPH Discharge Exam General- WD/WN elderly F in NAD Head- atraumatic Eyes- PERRL.EOMI ENT- oropharynx clear Neck- supple, no JVD. Lungs- clear to auscultation no wheezing or crackles. Heart- irregular; no murmur, no gallop. Abdomen- normal bowel sounds, soft, nontender, no distension. Extremities- mild pretibial edema, no erythema seen. Neuro- alert, oriented x 3; PERRL, EOMI; no facial palsy; no dysarthria; weakness in let extremities(flaccid). Discharge Data Allergies Allergy/AdvReac Type Severity Reaction Status Date / Time ezetimibe AdvReac Intermediate Weakness Verified 08/24/23 21:41 chlorpheniramine AdvReac Mild "Antsy Verified 08/24/23 21:41 [From Chlor-Trimeton] Feeling" Consultations 08/24/23 21:22 ED Decision to Admit Stat 08/25/23 08:00 Consult Neurology Routine Consult Vascular Surgery Routine 08/25/23 10:18 Consult Cardiology Routine 08/26/23 07:40 Consult Vascular Surgery Routine 08/26/23 10:54 Burn CD for patient Stat Ordered Studies 08/24/23 19:57 CT angio head w con Stat ADDENDUM ADDENDUM: 08/24/23 20:39 Call Doctor Regarding Stroke, Verified Reciept with NICHOLAS Verdugo for Dr. Hamilton on 08/23 20:38 (-04:00) Electronically signed by: Miguel Aguilar MD Electronically signed by: Miguel Aguilar MD 08/24/23 20:33 PM ADDENDUM END Exam(s): CTA HEAD With Contrast IV Amt: 118 ml optiay 320 EXAM: CT Angiography Head With Intravenous Contrast CLINICAL HISTORY: Reason for exam: neuro deficit, acute stroke suspected. TECHNIQUE: Axial computed tomographic angiography images of the head with intravenous contrast. CTDI is 47.98 mGy and DLP is 677.48 mGy-cm. Automated exposure control was utilized for the study. A dose lowering technique was utilized adhering to the principles of ALARA. MIP reconstructed images were created and reviewed. CONTRAST: Patient received 118 ml optiay 320 of IV contrast COMPARISON: No relevant prior studies available. FINDINGS: Right internal carotid artery: No acute findings. Intracranial segment is patent with no significant stenosis. No aneurysm. Right anterior cerebral artery: Unremarkable. No occlusion or significant stenosis. No aneurysm. Right middle cerebral artery: Unremarkable. No occlusion or significant stenosis. No aneurysm. Right posterior cerebral artery: Unremarkable. No occlusion or significant stenosis. No aneurysm. Right vertebral artery: Unremarkable as visualized. Left internal carotid artery: No acute findings. Intracranial segment is patent with no significant stenosis. No aneurysm. Left anterior cerebral artery: Unremarkable. No occlusion or significant stenosis. No aneurysm. Left middle cerebral artery: Unremarkable. No occlusion or significant stenosis. No aneurysm. Left posterior cerebral artery: origin of the CLINICAL EDUCATION MANAGER on the left. No occlusion or significant stenosis. No aneurysm. Left vertebral artery: Unremarkable as visualized. Basilar artery: Unremarkable. No occlusion or significant stenosis. No aneurysm. IMPRESSION: No large vessel occlusion or flow limiting stenosis. CT angio neck with con Stat ADDENDUM ADDENDUM: 08/24/23 20:39 Call Doctor Regarding Stroke, Verified Reciept with NICHOLAS Verudgo for Dr. Hamilton on 08/23 20:38 (-04:00) Electronically signed by: Miguel Aguilar MD Electronically signed by: Miguel Aguilar MD 08/24/23 20:37 PM ADDENDUM END Exam(s): CTA NECK With Contrast IV Amt: 118 ml optiray 320 EXAM: CT Angiography Neck With Intravenous Contrast CLINICAL HISTORY: Reason for exam: neuro deficit, acute stroke suspected. TECHNIQUE: Routine carotid CT angiography protocol was performed with intravenous contrast. NASCET criteria using the distal ICAs for comparison were used for evaluation of stenoses. CTDI is 41.75 mGy and DLP is 342.41 mGy-cm. Automated exposure control was utilized for the study. A dose lowering technique was utilized adhering to the principles of ALARA. MIP reconstructed images were created and reviewed. CONTRAST: Patient received 118 ml optiray 320 of IV contrast COMPARISON: None. FINDINGS: VASCULATURE: Right common carotid artery: Unremarkable. No occlusion or significant stenosis. No dissection. Right internal carotid artery: Somewhat beaded appearance. Extracranial segment is patent with no occlusion or significant stenosis. No dissection. Right vertebral artery: Unremarkable. No occlusion or significant stenosis. No dissection. Left common carotid artery: Unremarkable. No occlusion or significant stenosis. No dissection. Left internal carotid artery: Somewhat beaded appearance. Linear filling defect within the proximal left ICA either represents flow- related artifact or a partial dissection flap. Left vertebral artery: Unremarkable. No occlusion or significant stenosis. No dissection. NECK: Bones/joints: Unremarkable. No acute fracture. Soft tissues: Unremarkable. CAROTID STENOSIS REFERENCE USING NASCET CRITERIA: % ICA stenosis = (1 - narrowest ICA diameter/diameter of distal cervical ICA) x 100. Mild - <50% stenosis. Moderate - 50-69% stenosis. Severe - 70-94% stenosis. Near occlusion - 95-99% stenosis. Occluded - 100% stenosis. IMPRESSION: 1. No flow-limiting stenosis within the cervical vasculature. 2. Linear filling defect within the proximal left ICA either represents flow-related artifact or a partial dissection flap. 3. Somewhat beaded appearance of the ICAs left greater than right suspicious for fibromuscular dysplasia. CT head/brain wo con Stat ADDENDUM ADDENDUM: 08/24/23 20:28 Call Doctor Regarding Stroke, called Dr. Hamilton on 08/23 20:28 (-04:00) Electronically signed by: Miguel Aguilar MD Electronically signed by: Miguel Aguilar MD 08/24/23 20:24 PM ADDENDUM END Exam(s): CT HEAD Without Contrast EXAM: CT Head Without Intravenous Contrast CLINICAL HISTORY: Reason for exam: neuro deficit, acute stroke suspected. TECHNIQUE: Axial computed tomography images of the head/brain without intravenous contrast. CTDI is 47.98 mGy and DLP is 677.48 mGy-cm. Automated exposure control was utilized for the study. A dose lowering technique was utilized adhering to the principles of ALARA. COMPARISON: 08/23/2023 FINDINGS: Brain: Continued evolution of the left parietal hemorrhagic infarct. No new hemorrhage or mass-effect. Chronic infarct involving the right parietal lobe. Atrophy and chronic microvascular ischemic changes. Ventricles: Unremarkable. Bones/joints: Unremarkable. No fracture. Soft tissues: Unremarkable. Sinuses: No acute sinusitis. Mastoid air cells: Unremarkable as visualized. IMPRESSION: Continued evolution of the left parietal hemorrhagic infarct. No new hemorrhage or mass-effect. 08/25/23 00:14 MR brain wo/w con Routine FINDINGS: There is a 3 cm focus of restricted diffusion within the right high convexity at the right posterior frontal lobe consistent with an acute infarct. The midline structures are intact. Acute to subacute hemorrhagic focus again noted within the left frontotemporal lobe on axial image 15. This measures approximately 22 x 14 mm. This is similar to the prior CT examination. There is surrounding vasogenic edema. This hemorrhagic focus also demonstrates a hemosiderin ring consistent with chronic areas of hemorrhage. There is cytotoxic edema associated with the acute infarct within the right high convexity. Additional areas of patchy T2 hyperintensity within the white matter of the supratentorial brain favor microvascular ischemic change. Multiple old small bilateral cerebellar hemisphere infarcts again noted. There is a punctate focus of susceptibility artifact within the left occipital lobe on axial image 14. The major vascular flow-voids at the skull base are well-maintained. The paranasal sinuses and mastoid air cells are clear. The orbits are unremarkable. Moderate atrophic changes seen within the brain. There is an old right posterior parietal infarct, unchanged. Postcontrast sequences show no areas of abnormal enhancement. IMPRESSION: 1. There is a 3 cm acute infarct within the right high convexity right posterior frontal lobe. 2. There is again noted an acute to subacute hemorrhagic focus within the left frontotemporal lobe measuring 22 x 14 mm. This is similar to the prior CT examination. This demonstrates a surrounding hemosiderin ring consistent with areas of chronic hemorrhage as well as surrounding vasogenic edema. No abnormal enhancement identified. However, an underlying lesion such as a cavernoma or cerebral amyloid angiopathy is not excluded. Follow-up brain MRI in one month recommended to ensure complete resolution. 3. Additional old infarcts as described above. 4. This report was called/faxed to the referring physician following dictation. 08/25/23 17:17 US venous doppler LE BI Stat FINDINGS: There is normal compressibility, flow, and augmentation within the right lower extremity deep venous structures. Occlusive thrombus is noted within one of the duplicated left sided posterior tibial veins extending from the proximal to the midportion of the vessel. IMPRESSION: 1. Left lower extremity DVT, likely acute. 2. No right lower extremity DVT. 08/26/23 10:21 CT angio chest PE protocol Stat FINDINGS: There are multiple lobar, segmental and subsegmental pulmonary emboli, including a embolus within the right interlobar pulmonary artery. No saddle pulmonary embolus is present. The heart is moderately enlarged. There is mild dilatation of the ascending aorta measuring 4.1 cm. The thoracic aorta is not opacified. There is no pneumothorax or pleural effusion. There is no pericardial effusion. No pulmonary infarct is identified. Mild subpleural opacities favor atelectasis. Several hypodense hepatic lesions are unchanged. These favor cysts. IMPRESSION: 1. Multiple lobar, segmental and subsegmental pulmonary emboli. No pulmonary infarct. 2. Moderate cardiomegaly. Mild dilatation of the ascending aorta, measuring 4.1 cm. 3. No consolidation to suggest pneumonia. 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 And she has history of radiation to her left parotid gland which can cause cavernoma's as per [facility]. Etiology of the bleed was also likely cerebral amyloid angiopathy per [facility] Laguerre iquis was stopped. Statin and aspirin was restarted at time of discharge. Plan was to repeat MRI scan in 1 month and at that time to discuss about restarting anticoagulation and she was discharged in stable condition on August 13 from [facility]. She again came to [facility] from [facility] on August 17 with fall and given her volume depletion gentle fluids were given and diuretics were held and she was discharged to SNF for rehab. Comes back today because around 4 PM she noted her left arm would not work. And also not able to move her left lower extremity. Patient is alert and oriented and able to give her history. Currently denies any headache. No blurred vision. No runny nose or sore throat. No cough. No difficulty swallowing. No chest pain or shortness of breath. No fevers. No nausea. No abdominal pain. Normal bowel and bladder movements. Prior to the today's episode was ambulating with walker. Hemodynamics are okay currently. CVA Left-sided weakness CTA neck shows: . Linear filling defect within the proximal left ICA either represents flow-related artifact or a partial dissection flap. 3. Somewhat beaded appearance of the ICAs left greater than right suspicious for fibromuscular dysplasia. As per NICHOLAS Gage telestroke did not recommend any interval intervention at this time because of recent brain bleed and to continue aspirin and statin for now Will do full stroke workup with MRI head, echo, speech evaluation and PT OT evaluation Brain MRI - 1. There is a 3 cm acute infarct within the right high convexity right posterior frontal lobe. 2. There is again noted an acute to subacute hemorrhagic focus within the left frontotemporal lobe measuring 22 x 14 mm. This is similar to the prior CT examination. This demonstrates a surrounding hemosiderin ring consistent with areas of chronic hemorrhage as well as surrounding vasogenic edema. No abnormal enhancement identified. However, an underlying lesion such as a cavernoma or cerebral amyloid angiopathy is not excluded. Follow-up brain MRI in one month recommended to ensure complete resolution. 3. Additional old infarcts as described above. 4. This report was called/faxed to the referring physician following dictation. Neurology consulted - (1) Acute CVA (cerebrovascular accident): - Suspect likely has small vessel subcortical stroke to explain acute left sided hemiparesis - Continue ASA 81 mg daily - Obtain MRI Brain - Consider d/c anastrozole as this increases risk of stroke (2) Internal carotid artery dissection: - Appears same on prior CTA from 08/09, involving left proximal ICA - Continue ASA 81mg daily - Agree with vascular surgery evaluation, though expect medical management to be more appropriate than surgical - This lesion is not associated with the patients acute symptoms, it is on the wrong side - Recommend repeat CTA in 3months for reassessment (3) Chronic a-fib: - Eliquis on hold due to recent ICH - MRI brain September 12 and then consider restart Update after MRI obtained - MRI reviewed, stroke is embolic in appearance, this is most likely cardioembolic from AF. 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 Recommend discuss Watchman device with cardiology. 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 This has not changed since previous neck CTA a few weeks ago. Would typically recommend anticoagulation for an acute/subacute dissection, however, she was recently hospitalized for ICH and AC was stopped. Will allow medicine/neurology to decide if/when she can restart AC. Her sx of L sided weakness would be more related to her R ICA, which does not demonstrate any significant abnormalities. No indications for vascular surgical intervention. Medical management recommended. Close monitor History of chronic atrial fibrillation Rate controlled metoprolol succinate Current Eliquis is on hold because of recent brain bleed Plan is to repeat MRI scan in 1 month from August 13 and follow-up with neurosurgery and at the time to decide about restarting Eliquis. Echo - Rate controlled A-fib was present during echo study. There is mild concentric LVH. Borderline global hypokinesis of the left ventricle. LV systolic function is low normal. EF 50 to 55%. LA is severely dilated. There is a complex 1.6 x 1.1 mobile echodensity visualized in right atrium that appears to be adherent to the intra-atrial septum. Appearance suggests thrombus entrapped by a prominent eustachian valve, infectious vegetation, or other cardiac masses are also possible. No interatrial shunt was detected with the administration of agitated saline contrast. Compared to the images obtained in March 2019 and in September 2022, echodensity in right atrium is a new finding. Very mild [id number] shunt was detected with bubble study performed in 2019 that cannot be reproduced on the present study. Chronic systolic and diastolic CHF Valvular heart disease Recent last admission diuretics were held because of low volume depletion Getting gentle fluids as patient currently n.p.o. Diuretics on hold Close monitor Cardiology consult to help with medication optimization Discussed echo findings w/ cardiology - will obtain LE dopplers and blood cultx LLE DVT - doppler c/w acute LLE dvt -> discussed w/ vascular surgery if pt candidate for IVC filter - pt is a candidate but not able to place the filter until Monday at [facility]. Discussed w/ [facility] - pt accepted for transfer for further eval &care / poss. IVC filter placement. This was also discussed w/ cardiology. Per [facility] - obtain also CTA chest alexandro. - CT chest c/w PE, as above. Hypertension Metoprolol succinate holding parameters Nocturnal hypoxia and mild obstructive apnea Nighttime oxygen History of tremors on carbidopa Disposition Telemetry CODE STATUS. Full code if there is chance of recovery as per admitting provider's discussion with the patient. I further discussed with pt's daughter Janelle as well and she reports they also have it in writing that pt would not want any aggressive measures - confirmed with me DNR/DNI status. Code status changed. Total Time Total Time Spent Total Time Spent (In Minutes): 60 Discharge Plan Discharge Items Patient Disposition: Transfer Acute Care Hospital Reason For Visit: CVA Discharge Diagnosis: Acute CVA RA mass LLE DVT, PE Hx of IPH Activity: Per Instructions section Non-emergency contact: Primary Care Provider, Surgeon, Specialist and Asp Web Developer Call non-emergency contact if: you have any medication questions and your symptoms worsen Follow-up/Referrals: Anastasia Reza, [Primary Care Provider] - Diet: Nothing by Mouth Addtl Attending Provider Instructions: Patient presented with left- sided weakness and found to have acute CVA. On Echo found new right atrial mass, doppler c/w LLE acute DVT. Discussed w/ cardiology and vascular surgery - recommend IVC filter -> pt will be transferred to [facility] for for further evaluation and care - and possible procedure. Pending Studies at Discharge: Yes Studies:: final blood cultx results Stand-Alone Forms: My [facility] Skilled Items Patient informed of condition?: Yes DNR: Yes Discharge Level of Care: Other Communicable Disease: No Discharge Prognosis: Other Lines: Peripheral IV Urinary Catheter: No Medications and DC Order Prescriptions: Continued anastrozole [Arimidex] 1 mg tablet 1 mg PO DAILY docusate sodium 100 mg capsule 100 mg PO BID pravastatin 80 mg tablet 80 mg PO DAILY multivitamin Tablet 1 tab PO DAILY calcium carbonate-vitamin D3 600 mg(1,500mg) -200 unit Tablet 1 tab PO DAILY metoprolol succinate 100 mg Tablet Extended Release 24 Hr 50 mg PO QAM alendronate [Fosamax] 70 mg Tablet 70 mg PO FR@0900 aspirin 81 mg Tablet,Delayed Release (Dr/Ec) 81 mg PO DAILY digoxin 125 mcg (0.125 mg) tablet 125 mcg PO MOWEFR@0900 melatonin 3 mg Tablet 3 mg PO HS PRN (Reason: Insomnia) sennosides [Senokot] 8.6 mg tablet 8.6 mg PO BID carbidopa-levodopa 25-100 mg tablet 0.5 tab PO TID Rx Instructions: morning,noon,bedtime Held spironolactone 25 mg tablet 12.5 mg PO SUMOWETHSA@0900 Hold Instructions: Resume on 09/04/23. Rx Instructions: take 1/2 tablet 5 days a week. 08/24/23 : THIS MED CURRENTLY ON HOLD. furosemide 40 mg tablet 40 mg PO QAM Hold Instructions: Resume on 08/28/23. Rx Instructions: 08/24/23 THIS MED CURRENTLY ON HOLD Discharge Orders: Discharge Order (Routine); Ordered 08/26/23 Ordered By: Tam Sheehan Admission Data Admit Date/Time: 08/24/23 23:23 Attending Provider: Tam Sheehan Admit Provider: Bubba Davis Primary Care Provider: Anastasia Reza Other Providers: Jeanette Fraire; Saul Morrison; Jeanette Gallardo; Colton Vitale; Moi Elena; Johnny Morris; Cade Nolan; Cyn Wong; Jacques Hudson; Jimbo Hernandez; Kamila Escalante; Yonis Trejo; Gail Winn; Anamaria Loya; Cade Ramsay; Rafi Obrien; Kevin Figueredo; Tam Sheehan.
--- NOTE | 2023-08-26 11:25 | CT Scan Report ---
CT ANGIOGRAPHY OF THE CHEST, PULMONARY EMBOLUS PROTOCOL CLINICAL HISTORY: Left lower extremity DVT. Evaluate for deep venous thrombus. COMPARISON STUDY: Chest CT July 22, 2022. Chest radiograph August 24, 2023. TECHNIQUE: Following IV administration of 80 mL of Optiray, helical axial images of the chest were ob tained utilizing the pulmonary embolus protocol. Maximal intensity projections and sagittal and pardeep nal reformats were viewed on an independent 3D workstation. IV contrast was administered without com plication. Automated exposure control was utilized for the study. A dose lowering technique was uti lized adhering to the principles of ALARA. CT DOSE: 622.48 mGy.cm FINDINGS: There are multiple lobar, segmental and subsegmental pulmonary emboli, including a embolus within the right interlobar pulmonary artery. No saddle pulmonary embolus is present. The heart is m oderately enlarged. There is mild dilatation of the ascending aorta measuring 4.1 cm. The thoracic ao rta is not opacified. There is no pneumothorax or pleural effusion. There is no pericardial effusion. No pulmonary infarct is identified. Mild subpleural opacities favor atelectasis. Several hypodense h epatic lesions are unchanged. These favor cysts. IMPRESSION: 1. Multiple lobar, segmental and subsegmental pulmonary emboli. No pulmonary infarct. 2. Moderate cardiomegaly. Mild dilatation of the ascending aorta, measuring 4.1 cm. 3. No consolidation to suggest pneumonia. ACT 112: Negative or not required by law. Electronically signed by: Anderson Branch M.D. 08/26/2023 11:23 AM
[2023-08-26 19:40] VITALS: BP 155/100; PULSE 75; TEMP 98.6; O2SAT 95
== END 2023-08-26 19:45 | disposition short-term general hospital (02) | DRG 64 ==
LOC: ED 19:11 → EDINP 23:23 → 2E 08-25 00:15

== ENCOUNTER 2023-10-17 18:51 | Observation (INO) ==
--- NOTE | 2023-10-17 19:07 | Emergency Department Note ---
Impression & Plan Weakness ED Provider Note Provider: Aamir Carlos MD DATE OF SERVICE: 10/17/2023 CHIEF COMPLAINT: Feeling off, vision changes, possible right-sided weakness HISTORY OF PRESENT ILLNESS: Patient is a 83-year-old female history of chronic A-fib, heart failure, CVA/ICH in July presenting here today the ambulance from her facility. Cording to EMS they report that she had the onset of some right- sided weakness yesterday. States today she is feeling off and that there were halos in her vision and was not feeling herself. States it feels similar when she had her head bleed several months ago. No falls or syncope reported. Only had some orange juice today but denies any abdominal pain or nausea or vomiting. No chest pain reported. Does not really report new numbness or tingling. She herself does not clearly relay that she is having significant weakness of the right arm but does seem more discoordinated here. Daughter later arrived and states the patient does occasionally have some times where her speech is off but coming and going. PAST MEDICAL HISTORY: As noted above MEDICATIONS: Reviewed medication list has been restarted on Eliquis and is on digoxin SOCIAL HISTORY: Resides at [facility] PHYSICAL EXAM: GENERAL: alert and oriented to person in no acute distress on stretcher Head: normocephalic and atraumatic EYES: No injection, discharge or icterus. PERRL, EOMI. NECK: Trachea midline. Supple. ENT: Mucous membranes pink and moist. LUNGS: Airway patent. No retractions. Breath sounds clear HEART: Irregular rate and rhythm. No chest wall tenderness ABDOMEN: Soft and non-tender, without guarding or rebound. SKIN: Acyanotic, warm, dry, without rashes EXTREMITIES: Without swelling, tenderness or deformity NEUROLOGICAL: No aphasia. No facial droop or close with her speech on my exam. Fairly decent historian at this time. Moves all extremities but seems to have some increased weakness and slight discoordination particularly of the right arm with [id number]. EK bpm atrial fibrillation with some PVCs. No clear acute ST segment elevation with baseline artifact. Nonspecific T wave flattening. QTc 384. CONTINUOUS CARDIAC MONITORING: was ordered and showed a heart rate of 80s-90s bpm in atrial fibrillation Patient's laboratory studies and imaging reviewed. Differential includes Infection, dehydration, metabolic abnormality, hypo/hyperglycemia, electrolyte disturbance, anemia, hypoxia, cardiac sources, intracerebral event, toxicologic, neurologic, as well as other pathologies. IMPRESSION/MEDICAL DECISION MAKING: Patient fairly decent historian. Initial history from EMS. Reports some vision changes feeling she did when she had a recent ICH. Has been restarted on Eliquis. Is on digoxin as well and will check level. Will send for CT emergently as well as CT head and neck. Symptoms started yesterday so outside the window and on anticoagulation precludes any use of thrombolytics. Does not seem to be hemiplegic at this time or in any distress. Denies other infectious symptoms. No syncope/LOC or trauma reported. Vital regular leukocytosis or anemia. No severe electrolyte abnormalities noted. Normal renal function. CT of the head without acute intracranial hemorrhage per radiology report . CT angiograms of the head and neck per radiology with prior noted small left internal carotid artery possible dissection but no other acute process stenosis or dissection reported. No evidence of troponin elevation or hepatitis on labs here. Urinalysis without findings of infection. Digoxin level sent and not significantly elevated. Do question if her symptoms could be a subtle CVA. Will give a little bit IV fluid hydration while the urine does not appear infected is a bit concentrated. Discussed with patient and daughter recommend she come in for further evaluation. DIAGNOSIS: Weakness DISPOSITION: Hospitalist will evaluate Patient was agreeable with this plan. 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 Matthew on 04/22/2020 Post-splenectomy History of superficial parotidectomy 01/28/19 - with facial nerve dissection and preservation History of tonsillectomy as a child History of colonoscopy 2018 History of hip replacement, total Left - 2007, Right - 2008 Family History Father , Passed age 88 of Kidney Cancer No problems noted. Mother , Passed age 83 of Alzheimers Disease No problems noted. Brother No problems noted. Sister ALL (acute lymphoblastic leukemia), Onset Age: 66 Now in remission Daughter No problems noted. Son No problems noted. 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 Feels Safe at Home: Yes Childhood Exposure to Second-Hand Smoke: Yes (Father Smoked in Home ) caffeine: Yes (4 cups of coffee/day ) Dental Care, Regularly: Yes Assistive Devices: Glasses, Walker and Wheelchair Allergies Allergies Allergy/AdvReac Type Severity Reaction Status Date / Time ezetimibe AdvReac Intermediate Weakness Verified 10/17/23 20:06 chlorpheniramine AdvReac Mild "Antsy Verified 10/17/23 20:06 [From Chlor-Trimeton] Feeling" Home Meds Home Medications Medication Instructions Recorded Confirmed calcium carbonate 600 mg-vitamin 1 tab PO DAILY 04/23/19 10/17/23 D3 5 mcg (200 unit) tablet multivitamin 1 tab PO DAILY 04/23/19 10/17/23 anastrozole 1 mg tablet (Arimidex) 1 mg PO DAILY 11/04/20 10/17/23 alendronate 70 mg tablet (Fosamax) 70 mg PO FR@0900 04/05/22 10/17/23 spironolactone 25 mg tablet 12.5 mg PO SUMOWETHSA@0900 05/18/22 10/17/23 aspirin 81 mg tablet,delayed 81 mg PO DAILY 09/12/22 10/17/23 release digoxin 125 mcg (0.125 mg) tablet 125 mcg PO MOWEFR@0900 12/20/22 10/17/23 melatonin 3 mg tablet 3 mg PO HS PRN Insomnia 12/20/22 10/17/23 sennosides 8.6 mg tablet (Senokot) 8.6 mg PO BID 12/20/22 10/17/23 pravastatin 80 mg tablet 80 mg PO DAILY 05/18/23 10/17/23 carbidopa 25 mg-levodopa 100 mg 0.5 tab PO Q8 08/18/23 10/17/23 tablet furosemide 40 mg tablet 40 mg PO 4XWK 08/18/23 10/17/23 apixaban 5 mg tablet (Eliquis) 5 mg PO Q12 10/17/23 10/17/23 cholecalciferol (vitamin D3) 50 2,000 unit PO DAILY 10/17/23 10/17/23 mcg (2,000 unit) capsule escitalopram oxalate 5 mg tablet 5 mg PO QAM 10/17/23 10/17/23 furosemide 40 mg tablet 60 mg PO 3XWK 10/17/23 10/17/23 midodrine 5 mg tablet 5 mg PO TIDM 10/17/23 10/17/23 spironolactone 25 mg tablet 12.5 mg PO DAILY 10/17/23 10/17/23 Results & Data (ED) Vital Signs Vital Signs - 24 hr 10/17/23 18:44 10/17/23 18:44 10/17/23 18:55 Pulse Rate 63 89 Pulse Rate [Apical] Respiratory Rate 18 Blood Pressure 104/67 Blood Pressure [Right Arm] Blood Pressure Mean 79 Blood Pressure Mean [Right Arm] Pulse Oximetry 94 Oxygen Delivery Method Room Air Sepsis Recent Fever Within 48 Hours No Sepsis New/Unexplained Change in Mental Status No Sepsis Action Taken by Nursing No Action Required 10/17/23 19:42 10/17/23 22:03 10/17/23 22:55 Pulse Rate 85 Pulse Rate [Apical] 76 Respiratory Rate 17 Blood Pressure Blood Pressure [Right Arm] 117/87 Blood Pressure Mean Blood Pressure Mean [Right Arm] 97 Pulse Oximetry 94 95 Oxygen Delivery Method Room Air Room Air Sepsis Recent Fever Within 48 Hours Sepsis New/Unexplained Change in Mental Status Sepsis Action Taken by Nursing Laboratory Data 10/17/23 19:01 10/17/23 20:55 Lab Results 10/17/23 10/17/23 10/17/23 Range/Units 18:56 19:01 19:03 WBC 6.33 (4.8-10.8) K/ul RBC 3.80 L (4.20-5.40) M/uL Hgb 12.3 (12.0-16.0) g/dl POC Hgb 13.3 (12.0-16.0) g/dl Hct 36.5 L (37.0-47.0) % POC Hct 39 (37-47) % MCV 96.1 (80.0-100.0) fL MCH 32.4 (25.0-34.0) pg MCHC 33.7 (32.0-36.0) g/dL RDW Std Deviation 51.9 H (36.4-46.3) fL RDW Coeff of Pablo 14.9 H (11.5-14.5) % Plt Count 278 (130-400) K/uL MPV 10.4 (9.4-12.4) fL Immature Gran % (Auto) 0.2 % Neut % (Auto) 75.1 % Lymph % (Auto) 13.0 % [place] % (Auto) 9.2 % Eos % (Auto) 1.9 % Baso % (Auto) 0.6 % Neut # (Auto) 4.76 (1.40-6.50) K/uL Lymph # (Auto) 0.82 L (1.20-3.40) K/uL [place] # (Auto) 0.58 (0.11-0.59) K/uL Eos # (Auto) 0.12 (0.00-0.50) K/uL Baso # (Auto) 0.04 (0.00-0.20) K/uL Immature Gran # (Auto) 0.01 (0.01-0.20) K/uL PT 11.7 (9.0-12.0) Seconds INR 1.1 (0.9-1.1) APTT 25 (21-31) Seconds PTT Ratio 0.9 POC Sodium 137 (135-144) mmol/L Sodium 136 (136-145) mmol/L POC Potassium 4.3 (3.3-5.0) mmol/L Potassium TNP POC Chloride 98 L (101-112) mmol/L Chloride 99 (98-107) mmol/L Carbon Dioxide 30 (21-32) mmol/L POC Total CO2 29 (24-31) mmol/L Anion Gap 7 (3-11) POC Anion Gap 15.0 L (16-25) mmol/L POC BUN 17 (7-18) mg/dl BUN 18 (6-23) mg/dl Creatinine 0.80 (0.6-1.2) mg/dl POC Creatinine 0.9 (0.6-1.3) mg/dl Est Cr Clr Drug Dosing 44.8 ml/min Est GFR ( Amer) 79.6 ml/min Est GFR (Non-Af Amer) 68.7 ml/min BUN/Creatinine Ratio 22.5 H (10-20) Glucose 156 H (70-99(Fasting)) mg/dl POC Glucose 148 H (70-99) mg/dl POC Glucose (other) 150 H (70-99) mg/dl Calcium 9.0 (8.6-10.3) mg/dl POC Ioniz Calcium Chiquis 1.11 L (1.12-1.32) mmol/l Magnesium (1.7-2.4) mg/dl Total Bilirubin 0.8 (0.2-1.0) mg/dl AST TNP ALT 7 (7-52) U/L Alkaline Phosphatase 40 (34-104) U/L Troponin I High Sens 13.1 (0-14) pg/ml Total Protein 7.0 (6.0-8.3) gm/dl Albumin 3.5 (3.4-5.0) gm/dl Globulin 3.5 (2.5-4.0) gm/dl Albumin/Globulin Ratio 1.0 (0.9-2) Urine Color Urine Appearance (Clear) Urine pH (4.5-7.5) Ur Specific [place] (1.000-1.030) Urine Protein (Negative) Urine Glucose (UA) (Negative) Urine Ketones (Negative) Urine Blood (Negative) Urine Nitrite (Negative) Urine Bilirubin (Negative) Urine Urobilinogen (Negative) Ur Leukocyte Esterase (Negative) Digoxin 0.6 L (0.8-2.0) ng/ml SARS-CoV-2, RNA, NAAT (NEGATIVE) 10/17/23 10/17/23 10/17/23 Range/Units 20:34 20:55 21:45 WBC (4.8-10.8) K/ul RBC (4.20-5.40) M/uL Hgb (12.0-16.0) g/dl POC Hgb (12.0-16.0) g/dl Hct (37.0-47.0) % POC Hct (37-47) % MCV (80.0-100.0) fL MCH (25.0-34.0) pg MCHC (32.0-36.0) g/dL RDW Std Deviation (36.4-46.3) fL RDW Coeff of Pablo (11.5-14.5) % Plt Count (130-400) K/uL MPV (9.4-12.4) fL Immature Gran % (Auto) % Neut % (Auto) % Lymph % (Auto) % [place] % (Auto) % Eos % (Auto) % Baso % (Auto) % Neut # (Auto) (1.40-6.50) K/uL Lymph # (Auto) (1.20-3.40) K/uL [place] # (Auto) (0.11-0.59) K/uL Eos # (Auto) (0.00-0.50) K/uL Baso # (Auto) (0.00-0.20) K/uL Immature Gran # (Auto) (0.01-0.20) K/uL PT (9.0-12.0) Seconds INR (0.9-1.1) APTT (21-31) Seconds PTT Ratio POC Sodium (135-144) mmol/L Sodium (136-145) mmol/L POC Potassium (3.3-5.0) mmol/L Potassium 4.2 POC Chloride (101-112) mmol/L Chloride (98-107) mmol/L Carbon Dioxide (21-32) mmol/L POC Total CO2 (24-31) mmol/L Anion Gap (3-11) POC Anion Gap (16-25) mmol/L POC BUN (7-18) mg/dl BUN (6-23) mg/dl Creatinine (0.6-1.2) mg/dl POC Creatinine (0.6-1.3) mg/dl Est Cr Clr Drug Dosing ml/min Est GFR ( Amer) ml/min Est GFR (Non-Af Amer) ml/min BUN/Creatinine Ratio (10-20) Glucose (70-99(Fasting)) mg/dl POC Glucose (70-99) mg/dl POC Glucose (other) (70-99) mg/dl Calcium (8.6-10.3) mg/dl POC Ioniz Calcium Chiquis (1.12-1.32) mmol/l Magnesium 2.2 (1.7-2.4) mg/dl Total Bilirubin (0.2-1.0) mg/dl AST 20 ALT (7-52) U/L Alkaline Phosphatase (34-104) U/L Troponin I High Sens (0-14) pg/ml Total Protein (6.0-8.3) gm/dl Albumin (3.4-5.0) gm/dl Globulin (2.5-4.0) gm/dl Albumin/Globulin Ratio (0.9-2) Urine Color Yellow Urine Appearance Clear (Clear) Urine pH 8.0 H (4.5-7.5) Ur Specific [place] > 1.045 H (1.000-1.030) Urine Protein Negative (Negative) Urine Glucose (UA) Negative (Negative) Urine Ketones Negative (Negative) Urine Blood Negative (Negative) Urine Nitrite Negative (Negative) Urine Bilirubin Negative (Negative) Urine Urobilinogen Negative (Negative) Ur Leukocyte Esterase Negative (Negative) Digoxin (0.8-2.0) ng/ml SARS-CoV-2, RNA, NAAT NEGATIVE (NEGATIVE) Administered Medications Discontinued Medications Sodium Chloride (Nss) 500 mls @ 999 mls/hr IV .Q31M ONE Stop: 10/17/23 21:39 Last Infusion: 10/17/23 22:25 Dose: Infused Documented By: Admin: 10/17/23 21:46 Dose: 999 mls/hr Documented By: [employer] Data Radiologist's Impression: Head CT 10/17/23 18:59 CT angio neck with con, CT head/brain wo con, CT angio head w con CLINICAL HISTORY: dizzy TECHNIQUE: Contiguous axial CT images of the head were acquired from the base of the skull to the vertex without intravenous contrast administration. CT angiography of the head and neck was performed following intravenous administration of iodinated contrast. Coronal and sagittal MIPS were obtained from the axial data set and were submitted for review. Automated dose lowering techniques and/or adjustment according to patient size were utilized for this examination. All measurements were calculated based on NASCET criteria. CT DOSE: 890.67 mGy.cm Comparison: Comparison is made to CTA head and neck 08/24/2023 FINDINGS: CT head: Areas of decreased attenuation are present in the periventricular and subcortical white matter bilaterally consistent with small vessel ischemic disease. Generalized cerebral atrophy with commensurate enlargement of the ventricles, sulci, and cisterns is also present. There is no acute intracranial hemorrhage or evidence of acute territorial infarction. No shift of the midline structures, mass effect, or extra-axial abnormalities are shown. Atherosclerotic calcifications are present in the intracranial segments of the internal carotid arteries. Old foci of encephalomalacia are seen bilaterally. Small thyroid nodules are seen which do not require follow-up by ACR criteria. CTA Neck: The aortic arch and the origins of the innominate, left subclavian, and left common carotid artery are not imaged. Direct origin of the left vertebral artery from the aortic arch is incidentally noted. The common carotid, external carotid, cervical segments of the internal carotid arteries, and the cervical segments of the vertebral arteries are patent without hemodynamically significant stenosis. Again noted is linear filling defect in the petrous segment of the left internal carotid artery. The right vertebral artery is dominant. CTA Head: The anterior and posterior cerebral circulations are patent. origin of the bilateral posterior cerebral arteries noted. IMPRESSION: 1. No acute intracranial hemorrhage, evidence of acute territorial infarction, or other acute intracranial disease process. 2. Again noted is a linear filling defect in the petrous segment of the left internal carotid artery. Otherwise the cervical vasculature is unremarkable. 3. No occlusion, hemodynamically significant stenosis, aneurysm, dissection, or arteriovenous malformation in the major intracranial arteries. Assessment of stenosis of the internal carotid arteries is based on NASCET criteria. ACT 112: Negative or not required by law. Electronically signed by: Yaakov Roman M.D. 10/17/2023 7:54 PM Head CTA 10/17/23 18:59 CT angio neck with con, CT head/brain wo con, CT angio head w con CLINICAL HISTORY: dizzy TECHNIQUE: Contiguous axial CT images of the head were acquired from the base of the skull to the vertex without intravenous contrast administration. CT angiography of the head and neck was performed following intravenous administration of iodinated contrast. Coronal and sagittal MIPS were obtained from the axial data set and were submitted for review. Automated dose lowering techniques and/or adjustment according to patient size were utilized for this examination. All measurements were calculated based on NASCET criteria. CT DOSE: 890.67 mGy.cm Comparison: Comparison is made to CTA head and neck 08/24/2023 FINDINGS: CT head: Areas of decreased attenuation are present in the periventricular and subcortical white matter bilaterally consistent with small vessel ischemic disease. Generalized cerebral atrophy with commensurate enlargement of the ventricles, sulci, and cisterns is also present. There is no acute intracranial hemorrhage or evidence of acute territorial infarction. No shift of the midline structures, mass effect, or extra-axial abnormalities are shown. Atherosclerotic calcifications are present in the intracranial segments of the internal carotid arteries. Old foci of encephalomalacia are seen bilaterally. Small thyroid nodules are seen which do not require follow-up by ACR criteria. CTA Neck: The aortic arch and the origins of the innominate, left subclavian, and left common carotid artery are not imaged. Direct origin of the left vertebral artery from the aortic arch is incidentally noted. The common carotid, external carotid, cervical segments of the internal carotid arteries, and the cervical segments of the vertebral arteries are patent without hemodynamically significant stenosis. Again noted is linear filling defect in the petrous segment of the left internal carotid artery. The right vertebral artery is dominant. CTA Head: The anterior and posterior cerebral circulations are patent. origin of the bilateral posterior cerebral arteries noted. IMPRESSION: 1. No acute intracranial hemorrhage, evidence of acute territorial infarction, or other acute intracranial disease process. 2. Again noted is a linear filling defect in the petrous segment of the left internal carotid artery. Otherwise the cervical vasculature is unremarkable. 3. No occlusion, hemodynamically significant stenosis, aneurysm, dissection, or arteriovenous malformation in the major intracranial arteries. Assessment of stenosis of the internal carotid arteries is based on NASCET criteria. ACT 112: Negative or not required by law. Electronically signed by: Yaakov Roman M.D. 10/17/2023 7:54 PM Neck CTA 10/17/23 18:59 CT angio neck with con, CT head/brain wo con, CT angio head w con CLINICAL HISTORY: dizzy TECHNIQUE: Contiguous axial CT images of the head were acquired from the base of the skull to the vertex without intravenous contrast administration. CT angiography of the head and neck was performed following intravenous administration of iodinated contrast. Coronal and sagittal MIPS were obtained from the axial data set and were submitted for review. Automated dose lowering techniques and/or adjustment according to patient size were utilized for this examination. All measurements were calculated based on NASCET criteria. CT DOSE: 890.67 mGy.cm Comparison: Comparison is made to CTA head and neck 08/24/2023 FINDINGS: CT head: Areas of decreased attenuation are present in the periventricular and subcortical white matter bilaterally consistent with small vessel ischemic disease. Generalized cerebral atrophy with commensurate enlargement of the ventricles, sulci, and cisterns is also present. There is no acute intracranial hemorrhage or evidence of acute territorial infarction. No shift of the midline structures, mass effect, or extra-axial abnormalities are shown. Atherosclerotic calcifications are present in the intracranial segments of the internal carotid arteries. Old foci of encephalomalacia are seen bilaterally. Small thyroid nodules are seen which do not require follow-up by ACR criteria. CTA Neck: The aortic arch and the origins of the innominate, left subclavian, and left common carotid artery are not imaged. Direct origin of the left vertebral artery from the aortic arch is incidentally noted. The common carotid, external carotid, cervical segments of the internal carotid arteries, and the cervical segments of the vertebral arteries are patent without hemodynamically significant stenosis. Again noted is linear filling defect in the petrous segment of the left internal carotid artery. The right vertebral artery is dominant. CTA Head: The anterior and posterior cerebral circulations are patent. origin of the bilateral posterior cerebral arteries noted. IMPRESSION: 1. No acute intracranial hemorrhage, evidence of acute territorial infarction, or other acute intracranial disease process. 2. Again noted is a linear filling defect in the petrous segment of the left internal carotid artery. Otherwise the cervical vasculature is unremarkable. 3. No occlusion, hemodynamically significant stenosis, aneurysm, dissection, or arteriovenous malformation in the major intracranial arteries. Assessment of stenosis of the internal carotid arteries is based on NASCET criteria. ACT 112: Negative or not required by law. Electronically signed by: Yaakov Roman M.D. 10/17/2023 7:54 PM Discharge Plan Visit Data Chief Complaint: Stroke/CVA Symptoms Stated Complaint: STOKE SX, SLURRED SPEECH, R SIDED DEFICITS, ADAMES ED Provider: Aamir Carlos Discharge Problem: Weakness Patient Disposition: Being Evaluated by Hospitalist Discharge Instructions Interventions: ED Discharge Assessment Last Done: 10/18/23 00:17 Forms Stand Alone Forms: [employer] Prescriptions Prescriptions: No Action anastrozole [Arimidex] 1 mg tablet 1 mg PO DAILY spironolactone 25 mg tablet 12.5 mg PO SUMOWETHSA@0900 Hold Instructions: Resume on 09/04/23. Rx Instructions: take 1/2 tablet 5 days a week. 08/24/23 : THIS MED CURRENTLY ON HOLD. pravastatin 80 mg tablet 80 mg PO DAILY multivitamin Tablet 1 tab PO DAILY calcium carbonate-vitamin D3 600 mg(1,500mg) -200 unit Tablet 1 tab PO DAILY alendronate [Fosamax] 70 mg Tablet 70 mg PO FR@0900 aspirin 81 mg Tablet,Delayed Release (Dr/Ec) 81 mg PO DAILY digoxin 125 mcg (0.125 mg) tablet 125 mcg PO MOWEFR@0900 melatonin 3 mg Tablet 3 mg PO HS PRN (Reason: Insomnia) sennosides [Senokot] 8.6 mg tablet 8.6 mg PO BID furosemide 40 mg tablet 40 mg PO 4XWK Hold Instructions: Resume on 08/28/23. Rx Instructions: sututhsa carbidopa-levodopa 25-100 mg tablet 0.5 tab PO Q8 Rx Instructions: morning,noon,bedtime furosemide 40 mg tablet 60 mg PO 3XWK Rx Instructions: mowefr midodrine 5 mg tablet 5 mg PO TIDM spironolactone 25 mg tablet 12.5 mg PO DAILY escitalopram oxalate 5 mg tablet 5 mg PO QAM cholecalciferol (vitamin D3) 50 mcg (2,000 unit) capsule 2,000 unit PO DAILY Eliquis 5 mg tablet 5 mg PO Q12 Referrals Referrals: Anastasia Reza DO [Primary Care Provider] -
[2023-10-17 19:15] LABS: iSTAT Creatinine 0.9 mg/dl (0.6-1.3); iSTAT Hemoglobin 13.3 g/dl (12.0-16.0); iSTAT Ionized Calcium 1.11 mmol/l (1.12-1.32); iSTAT Potassium 4.3 mmol/L (3.3-5.0)
[2023-10-17 19:22] LABS: Basophils # (auto) 0.04 K/uL (0.00-0.20); Basophils % (auto) 0.6 %; Eosinophils # (auto) 0.12 K/uL (0.00-0.50); Eosinophils % (auto) 1.9 %; Hematocrit (blood only) 36.5 % (37.0-47.0); Hemoglobin 12.3 g/dl (12.0-16.0); Immature Granulocytes # (auto) 0.01 K/uL (0.01-0.20); Immature Granulocytes % (auto) 0.2 %; Lymphocytes # (auto) 0.82 K/uL (1.20-3.40); Mean Corpuscular Hemoglobin 32.4 pg (25.0-34.0); Mean Corpuscular Hgb Conc 33.7 g/dL (32.0-36.0); Mean Corpuscular Volume 96.1 fL (80.0-100.0); Mean Platelet Volume 10.4 fL (9.4-12.4); Monocytes # (auto) 0.58 K/uL (0.11-0.59); Monocytes % (auto) 9.2 %; Neutrophils # (auto) 4.76 K/uL (1.40-6.50); Neutrophils % (auto) 75.1 %; Platelet Count 278 K/uL (130-400); RDW Coefficient of Variation 14.9 % (11.5-14.5); RDW Standard Deviation 51.9 fL (36.4-46.3); White Blood Count 6.33 K/ul (4.8-10.8)
[2023-10-17 19:55] LABS: INR 1.1 (0.9-1.1); Partial Thromboplastin Ratio 0.9; Partial Thromboplastin Time 25 Seconds (21-31); Prothrombin Time 11.7 Seconds (9.0-12.0)
--- NOTE | 2023-10-17 19:56 | CT Scan Report ---
CT angio neck with con, CT head/brain wo con, CT angio head w con CLINICAL HISTORY: dizzy TECHNIQUE: Contiguous axial CT images of the head were acquired from the base of the skull to the vincent spencer without intravenous contrast administration. CT angiography of the head and neck was performed f ollowing intravenous administration of iodinated contrast. Coronal and sagittal MIPS were obtained fr om the axial data set and were submitted for review. Automated dose lowering techniques and/or adjus tment according to patient size were utilized for this examination. All measurements were calculated based on NASCET criteria. CT DOSE: 890.67 mGy.cm Comparison: Comparison is made to CTA head and neck 08/24/2023 FINDINGS: CT head: Areas of decreased attenuation are present in the periventricular and subcortical white madhav er bilaterally consistent with small vessel ischemic disease. Generalized cerebral atrophy with comme nsurate enlargement of the ventricles, sulci, and cisterns is also present. There is no acute intracr anial hemorrhage or evidence of acute territorial infarction. No shift of the midline structures, mas s effect, or extra-axial abnormalities are shown. Atherosclerotic calcifications are present in the intracranial segments of the internal carotid arteries. Old foci of encephalomalacia are seen bilater ally. Small thyroid nodules are seen which do not require follow-up by ACR criteria. CTA Neck: The aortic arch and the origins of the innominate, left subclavian, and left common caroti d artery are not imaged. Direct origin of the left vertebral artery from the aortic arch is incidenta lly noted. The common carotid, external carotid, cervical segments of the internal carotid arteries, and the cervical segments of the vertebral arteries are patent without hemodynamically significant st enosis. Again noted is linear filling defect in the petrous segment of the left internal carotid angela ry. The right vertebral artery is dominant. CTA Head: The anterior and posterior cerebral circulations are patent. origin of the bilateral posterior cerebral arteries noted. IMPRESSION: 1. No acute intracranial hemorrhage, evidence of acute territorial infarction, or other acute intrac ranial disease process. 2. Again noted is a linear filling defect in the petrous segment of the left internal carotid artery . Otherwise the cervical vasculature is unremarkable. 3. No occlusion, hemodynamically significant stenosis, aneurysm, dissection, or arteriovenous malfor mation in the major intracranial arteries. Assessment of stenosis of the internal carotid arteries is based on NASCET criteria. ACT 112: Negative or not required by law. Electronically signed by: Yaakov Roman M.D. 10/17/2023 7:54 PM
[2023-10-17 19:58] LABS: Alanine Aminotransferase 7 U/L (7-52); Albumin Level 3.5 gm/dl (3.4-5.0); Alkaline Phosphatase 40 U/L (34-104); Anion Gap 7 (3-11); BUN Creatinine Ratio 22.5 (10-20); Bilirubin,Total 0.8 mg/dl (0.2-1.0); Blood Urea Nitrogen 18 mg/dl (6-23); Carbon Dioxide 30 mmol/L (21-32); Chloride 99 mmol/L (98-107); Creatinine Clr Calc Pharmacy 44.8 ml/min; Est GFR (African American) 79.6 ml/min; Est GFR (Non-African American) 68.7 ml/min; Globulin 3.5 gm/dl (2.5-4.0); Glucose 156 mg/dl (70-99(Fasting)); Sodium 136 mmol/L (136-145); Troponin I High Sensitivity 13.1 pg/ml (0-14)
[2023-10-17 21:00] LABS: Appearance Urine Clear (Clear); Bilirubin Urine Negative (Negative); Blood Urine Negative (Negative); Color Urine Yellow; Glucose Urine UA Negative (Negative); Ketones Urine Negative (Negative); Leukocyte Esterase Urine Negative (Negative); Nitrite Urine Negative (Negative); Protein Urine Negative (Negative); Specific Gravity Urine > 1.045 (1.000-1.030); Urobilinogen Urine Negative (Negative)
[2023-10-17 21:36] LABS: Magnesium 2.2 mg/dl (1.7-2.4); Potassium 4.2 mmol/L (3.5-5.1)
[2023-10-17] MEDS: SODIUM CHLORIDE 0.9% 500 ML IV ONE (21:46)
--- NOTE | 2023-10-17 23:28 | History & Physical Report ---
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 on Eliquis chronic diastolic HF (EF 55%, TTE 2023), patient euvolemic to dry hx ICH status post Kcentra PVD valvular heart disease (mild MR, moderate to severe TR) Hypotension on midodrine hyperlipidemia/statin intolerance pulmonary hypertension nocturnal hypoxemia/mild MARGARET on nighttime O2 right breast cancer status post chemoradiation supposedly off anastrozole Rx due to clot concerns following recent confinement for stroke, anastrozole currently active medication on patient's home list NHL status post radiation pancreatic neuroendocrine tumor status post surgery prediabetes, hemoglobin A1c of 6 last July 2023 OBS Medical telemetry Neurochecks Continue aspirin and Eliquis Rx Hold anastrozole until clarified with patient PCP at [facility]. IVF, hold home diuretic given borderline BP and stroke concerns MRI brain, Neurology consult Re: TIA DVT prophylaxis. Eliquis DNR as per patient's prior directives. Text document was generated using [employer] voice recognition software. It may contain grammatical or spelling errors. Kindly contact undersigned for clarification of any documentation item in question. History of Present Illness Chief Complaint: Right hand numbness Primary Care Provider: Anastasia Reza, History obtained from patient and records Patient is a fair historian. Medical history significant for chronic diastolic HF (EF 55%, TTE 2023), PE status post IVC filter placement/A. fib on Eliquis, possible cardiac thrombus, hx ICH status post Kcentra, hx embolic CVA, PVD, valvular heart disease (mild MR, moderate to severe TR), hypertension, hypotension on midodrine, hyperlipidemia/statin intolerance, pulmonary hypertension, nocturnal hypoxemia/mild MARGARET on nighttime O2, history of tremors, right breast cancer status post chemoradiation on anastrozole Rx, NHL status post radiation, pancreatic neuroendocrine tumor status post surgery, prediabetes, ambulatory dysfunction. Last [facility] confinement August 23 to 2023 for acute CVA likely cardioembolic due to possible RA thrombus on TTE. Patient transferred to [facility] for further evaluation and was admitted until September 01, 2023. Workup showed PE DVT. IVC filter placed Eliquis restarted. Patient anastrozole discontinued due to increased risk of thrombosis. Hospital course complicated by periods of delirium. Yesterday, patient noted right-sided weakness/numbness along with visual halos. No headache, no chest pain, no SOB. Patient symptoms currently resolved. 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 Allergies Allergy/AdvReac Type Severity Reaction Status Date / Time ezetimibe AdvReac Intermediate Weakness Verified 10/17/23 20:06 chlorpheniramine AdvReac Mild "Antsy Verified 10/17/23 20:06 [From Chlor-Trimeton] Feeling" Home Medications Medication Instructions Recorded Confirmed Type calcium carbonate 600 mg-vitamin 1 tab PO DAILY 04/23/19 10/17/23 History D3 5 mcg (200 unit) tablet multivitamin 1 tab PO DAILY 04/23/19 10/17/23 History anastrozole 1 mg tablet (Arimidex) 1 mg PO DAILY 11/04/20 10/17/23 History alendronate 70 mg tablet (Fosamax) 70 mg PO FR@0900 04/05/22 10/17/23 History spironolactone 25 mg tablet 12.5 mg PO SUMOWETHSA@0900 05/18/22 10/17/23 History aspirin 81 mg tablet,delayed 81 mg PO DAILY 09/12/22 10/17/23 History release digoxin 125 mcg (0.125 mg) tablet 125 mcg PO MOWEFR@0900 12/20/22 10/17/23 History melatonin 3 mg tablet 3 mg PO HS PRN Insomnia 12/20/22 10/17/23 History sennosides 8.6 mg tablet (Senokot) 8.6 mg PO BID 12/20/22 10/17/23 History pravastatin 80 mg tablet 80 mg PO DAILY 05/18/23 10/17/23 History carbidopa 25 mg-levodopa 100 mg 0.5 tab PO Q8 08/18/23 10/17/23 History tablet furosemide 40 mg tablet 40 mg PO 4XWK 08/18/23 10/17/23 History apixaban 5 mg tablet (Eliquis) 5 mg PO Q12 10/17/23 10/17/23 History cholecalciferol (vitamin D3) 50 2,000 unit PO DAILY 10/17/23 10/17/23 History mcg (2,000 unit) capsule escitalopram oxalate 5 mg tablet 5 mg PO QAM 10/17/23 10/17/23 History furosemide 40 mg tablet 60 mg PO 3XWK 10/17/23 10/17/23 History midodrine 5 mg tablet 5 mg PO TIDM 10/17/23 10/17/23 History spironolactone 25 mg tablet 12.5 mg PO DAILY 10/17/23 10/17/23 History Past Med/Surg History Problem List (Updated 10/18/23 @ 09:45 by Cade Nolan MD) Vision changes Weakness (Acute) Internal carotid artery dissection (Acute) Acute CVA (cerebrovascular accident) (Acute) CVA (cerebral vascular accident) Hyperkalemia Ambulatory dysfunction (Acute) Head injury (Acute) Acute bilateral knee pain (Acute) Fall from standing (Acute) Combined systolic and diastolic heart failure Rhabdomyolysis (Acute) Fall (Acute) Chronic diastolic heart failure Weakness (Acute) Ambulatory dysfunction (Acute) Chronic a-fib (Acute) Generalized weakness (Acute) Elevated troponin (Acute) 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 Matthew on 04/22/2020 Post-splenectomy History of superficial parotidectomy 01/28/19 - with facial nerve dissection and preservation History of tonsillectomy as a child History of colonoscopy 2018 History of hip replacement, total Left - 2007, Right - 2008 Family History Father , Passed age 88 of Kidney Cancer No problems noted. Mother , Passed age 83 of Alzheimers Disease No problems noted. Brother No problems noted. Sister ALL (acute lymphoblastic leukemia), Onset Age: 66 Now in remission Daughter No problems noted. Son No problems noted. Social History Smoking Status: Never smoker Second Hand Exposure: No; Do You Dip or Chew Tobacco: No; Hx Alcohol Use: No Hx Substance Use: No Preferred Language: Gabonese Communication Ability: Effective Visual Impairment: Limited Hearing Ability: Normal Machine Ii Trimmer Required: No Beliefs That Will Affect Care: None marital status: / Current Living Situation: Care Home and Personal Care Facility Current Living Situation Comment: 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 Other Information That Helps Us Care for You: No Feels Safe at Home: Yes Safety Concerns: Feels Safe At This Time Childhood Exposure to Second-Hand Smoke: Yes (Father Smoked in Home ) caffeine: Yes (4 cups of coffee/day ) Dental Care, Regularly: Yes Assistive Devices: Glasses and Oxygen - at Night Review of Systems Review of Systems: As per HPI, all other systems reviewed and negative Physical Exam Physical Exam: GENERAL: Slightly uncomfortable, slightly hard of hearing, frail, no respiratory distress SKIN: Normal color, warm HEENT: pink palpebral conjunctivae, no ptosis, lower lip tremors noted, dry buccal mucosa NECK : Supple, no tenderness CHEST : Decreased breath sounds, no tenderness HEART : Irregular, systolic murmur ABDOMEN: Some distention, nontender EXTREMITIES : Minimal LE swelling, no LE tenderness, no other conspicuous deformities noted NEUROLOGIC : Coherent, oriented to place, no facial asymmetry, intentional tremo rs noted; MMTS BUE 4/5, BLE 3/5; gait and stance not assessed Results & Data Results & Data Vital Signs (Past 12 Hours) Vital Signs Pulse Pulse Resp BP BP Pulse Ox O2 Del Method 10/17/23 22:55 85 10/17/23 22:03 76 17 117/87 95 Room Air 10/17/23 19:42 94 Room Air 10/17/23 18:55 89 10/17/23 18:44 Room Air 10/17/23 18:44 63 18 104/67 94 Laboratory Results Laboratory Results WBC 6.33 K/ul (4.8-10.8) 10/17/23 19:01 RBC 3.80 M/uL (4.20-5.40) L 10/17/23 19:01 Hgb 12.3 g/dl (12.0-16.0) 10/17/23 19: POC Hgb 13.3 g/dl (12.0-16.0) 10/17/23 19:03 Hct 36.5 % (37.0-47.0) L 10/17/23 19: POC Hct 39 % (37-47) 10/17/23 19:03 MCV 96.1 fL (80.0-100.0) 10/17/23 19: MCH 32.4 pg (25.0-34.0) 10/17/23 19: MCHC 33.7 g/dL (32.0-36.0) 10/17/23 19: RDW Std Deviation 51.9 fL (36.4-46.3) H 10/17/23 19: RDW Coeff of Pablo 14.9 % (11.5-14.5) H 10/17/23 19: Plt Count 278 K/uL (130-400) 10/17/23 19:01 MPV 10.4 fL (9.4-12.4) 10/17/23 19:01 Immature Gran % (Auto) 0.2 % 10/17/23 19:01 Neut % (Auto) 75.1 % 10/17/23 19:01 Lymph % (Auto) 13.0 % 10/17/23 19:01 [place] % (Auto) 9.2 % 10/17/23 19:01 Eos % (Auto) 1.9 % 10/17/23 19:01 Baso % (Auto) 0.6 % 10/17/23 19:01 Neut # (Auto) 4.76 K/uL (1.40-6.50) 10/17/23 19:01 Lymph # (Auto) 0.82 K/uL (1.20-3.40) L 10/17/23 19:01 [place] # (Auto) 0.58 K/uL (0.11-0.59) 10/17/23 19:01 Eos # (Auto) 0.12 K/uL (0.00-0.50) 10/17/23 19:01 Baso # (Auto) 0.04 K/uL (0.00-0.20) 10/17/23 19:01 Immature Gran # (Auto) 0.01 K/uL (0.01-0.20) 10/17/23 19:01 PT 11.7 Seconds (9.0-12.0) 10/17/23 19:01 INR 1.1 (0.9-1.1) 10/17/23 19:01 APTT 25 Seconds (21-31) 10/17/23 19:01 PTT Ratio 0.9 10/17/23 19:01 POC Sodium 137 mmol/L (135-144) 10/17/23 19:03 Sodium 136 mmol/L (136-145) 10/17/23 19:01 POC Potassium 4.3 mmol/L (3.3-5.0) 10/17/23 19:03 Potassium 4.2 mmol/L (3.5-5.1) 10/17/23 20:55 POC Chloride 98 mmol/L (101-112) L 10/17/23 19:03 Chloride 99 mmol/L (98-107) 10/17/23 19:01 Carbon Dioxide 30 mmol/L (21-32) 10/17/23 19:01 POC Total CO2 29 mmol/L (24-31) 10/17/23 19:03 Anion Gap 7 (3-11) 10/17/23 19:01 POC Anion Gap 15.0 mmol/L (16-25) L 10/17/23 19:03 POC BUN 17 mg/dl (7-18) 10/17/23 19:03 BUN 18 mg/dl (6-23) 10/17/23 19:01 Creatinine 0.80 mg/dl (0.6-1.2) 10/17/23 19:01 POC Creatinine 0.9 mg/dl (0.6-1.3) 10/17/23 19:03 Est Cr Clr Drug Dosing 44.8 ml/min 10/17/23 19:01 Est GFR ( Amer) 79.6 ml/min 10/17/23 19:01 Est GFR (Non-Af Amer) 68.7 ml/min 10/17/23 19:01 BUN/Creatinine Ratio 22.5 (10-20) H 10/17/23 19:01 Glucose 156 mg/dl (70-99(Fasting)) H 10/17/23 19:01 POC Glucose 148 mg/dl (70-99) H 10/17/23 18:56 POC Glucose (other) 150 mg/dl (70-99) H 10/17/23 19:03 Calcium 9.0 mg/dl (8.6-10.3) 10/17/23 19:01 POC Ioniz Calcium Chiquis 1.11 mmol/l (1.12-1.32) L 10/17/23 19:03 Magnesium 2.2 mg/dl (1.7-2.4) 10/17/23 20:55 Total Bilirubin 0.8 mg/dl (0.2-1.0) 10/17/23 19:01 AST 20 U/L (13-39) 10/17/23 20:55 ALT 7 U/L (7-52) 10/17/23 19:01 Alkaline Phosphatase 40 U/L (34-104) 10/17/23 19:01 Troponin I High Sens 13.1 pg/ml (0-14) 10/17/23 19:01 Total Protein 7.0 gm/dl (6.0-8.3) 10/17/23 19:01 Albumin 3.5 gm/dl (3.4-5.0) 10/17/23 19:01 Globulin 3.5 gm/dl (2.5-4.0) 10/17/23 19:01 Albumin/Globulin Ratio 1.0 (0.9-2) 10/17/23 19:01 Urine Color Yellow 10/17/23 20:34 Urine Appearance Clear (Clear) 10/17/23 20:34 Urine pH 8.0 (4.5-7.5) H 10/17/23 20:34 Ur Specific Mcgrady > 1.045 (1.000-1.030) H 10/17/23 20:34 Urine Protein Negative (Negative) 10/17/23 20:34 Urine Glucose (UA) Negative (Negative) 10/17/23 20:34 Urine Ketones Negative (Negative) 10/17/23 20:34 Urine Blood Negative (Negative) 10/17/23 20:34 Urine Nitrite Negative (Negative) 10/17/23 20:34 Urine Bilirubin Negative (Negative) 10/17/23 20:34 Urine Urobilinogen Negative (Negative) 10/17/23 20:34 Ur Leukocyte Esterase Negative (Negative) 10/17/23 20:34 Digoxin 0.6 ng/ml (0.8-2.0) L 10/17/23 19:01 SARS-CoV-2, RNA, NAAT NEGATIVE (NEGATIVE) 10/17/23 21:[address] 10/17/23 18:59 CT angio neck with con, CT head/brain wo con, CT angio head w con CLINICAL HISTORY: dizzy TECHNIQUE: Contiguous axial CT images of the head were acquired from the base of the skull to the vertex without intravenous contrast administration. CT angiography of the head and neck was performed following intravenous administration of iodinated contrast. Coronal and sagittal MIPS were obtained from the axial data set and were submitted for review. Automated dose lowering techniques and/or adjustment according to patient size were utilized for this examination. All measurements were calculated based on NASCET criteria. CT DOSE: 890.67 mGy.cm Comparison: Comparison is made to CTA head and neck 08/24/2023 FINDINGS: CT head: Areas of decreased attenuation are present in the periventricular and subcortical white matter bilaterally consistent with small vessel ischemic disease. Generalized cerebral atrophy with commensurate enlargement of the ventricles, sulci, and cisterns is also present. There is no acute intracranial hemorrhage or evidence of acute territorial infarction. No shift of the midline structures, mass effect, or extra-axial abnormalities are shown. Atherosclerotic calcifications are present in the intracranial segments of the internal carotid arteries. Old foci of encephalomalacia are seen bilaterally. Small thyroid nodules are seen which do not require follow-up by ACR criteria. CTA Neck: The aortic arch and the origins of the innominate, left subclavian, and left common carotid artery are not imaged. Direct origin of the left vertebral artery from the aortic arch is incidentally noted. The common carotid, external carotid, cervical segments of the internal carotid arteries, and the cervical segments of the vertebral arteries are patent without hemodynamically significant stenosis. Again noted is linear filling defect in the petrous segment of the left internal carotid artery. The right vertebral artery is dominant. CTA Head: The anterior and posterior cerebral circulations are patent. origin of the bilateral posterior cerebral arteries noted. IMPRESSION: 1. No acute intracranial hemorrhage, evidence of acute territorial infarction, or other acute intracranial disease process. 2. Again noted is a linear filling defect in the petrous segment of the left internal carotid artery. Otherwise the cervical vasculature is unremarkable. 3. No occlusion, hemodynamically significant stenosis, aneurysm, dissection, or arteriovenous malformation in the major intracranial arteries. Assessment of stenosis of the internal carotid arteries is based on NASCET criteria. ACT 112: Negative or not required by law. Electronically signed by: Yaakov Roman M.D. 10/17/2023 7:54 PM Head CTA 10/17/23 18:59 CT angio neck with con, CT head/brain wo con, CT angio head w con CLINICAL HISTORY: dizzy TECHNIQUE: Contiguous axial CT images of the head were acquired from the base of the skull to the vertex without intravenous contrast administration. CT angiography of the head and neck was performed following intravenous administration of iodinated contrast. Coronal and sagittal MIPS were obtained from the axial data set and were submitted for review. Automated dose lowering techniques and/or adjustment according to patient size were utilized for this examination. All measurements were calculated based on NASCET criteria. CT DOSE: 890.67 mGy.cm Comparison: Comparison is made to CTA head and neck 08/24/2023 FINDINGS: CT head: Areas of decreased attenuation are present in the periventricular and subcortical white matter bilaterally consistent with small vessel ischemic disease. Generalized cerebral atrophy with commensurate enlargement of the ventricles, sulci, and cisterns is also present. There is no acute intracranial hemorrhage or evidence of acute territorial infarction. No shift of the midline structures, mass effect, or extra-axial abnormalities are shown. Atherosclerotic calcifications are present in the intracranial segments of the internal carotid arteries. Old foci of encephalomalacia are seen bilaterally. Small thyroid nodules are seen which do not require follow-up by ACR criteria. CTA Neck: The aortic arch and the origins of the innominate, left subclavian, and left common carotid artery are not imaged. Direct origin of the left vertebral artery from the aortic arch is incidentally noted. The common carotid, external carotid, cervical segments of the internal carotid arteries, and the cervical segments of the vertebral arteries are patent without hemodynamically significant stenosis. Again noted is linear filling defect in the petrous segment of the left internal carotid artery. The right vertebral artery is dominant. CTA Head: The anterior and posterior cerebral circulations are patent. origin of the bilateral posterior cerebral arteries noted. IMPRESSION: 1. No acute intracranial hemorrhage, evidence of acute territorial infarction, or other acute intracranial disease process. 2. Again noted is a linear filling defect in the petrous segment of the left internal carotid artery. Otherwise the cervical vasculature is unremarkable. 3. No occlusion, hemodynamically significant stenosis, aneurysm, dissection, or arteriovenous malformation in the major intracranial arteries. Assessment of stenosis of the internal carotid arteries is based on NASCET criteria. ACT 112: Negative or not required by law. Electronically signed by: Yaakov Roman M.D. 10/17/2023 7:54 PM Neck CTA 10/17/23 18:59 CT angio neck with con, CT head/brain wo con, CT angio head w con CLINICAL HISTORY: dizzy TECHNIQUE: Contiguous axial CT images of the head were acquired from the base of the skull to the vertex without intravenous contrast administration. CT angiography of the head and neck was performed following intravenous administration of iodinated contrast. Coronal and sagittal MIPS were obtained from the axial data set and were submitted for review. Automated dose lowering techniques and/or adjustment according to patient size were utilized for this examination. All measurements were calculated based on NASCET criteria. CT DOSE: 890.67 mGy.cm Comparison: Comparison is made to CTA head and neck 08/24/2023 FINDINGS: CT head: Areas of decreased attenuation are present in the periventricular and subcortical white matter bilaterally consistent with small vessel ischemic disease. Generalized cerebral atrophy with commensurate enlargement of the ventricles, sulci, and cisterns is also present. There is no acute intracranial hemorrhage or evidence of acute territorial infarction. No shift of the midline structures, mass effect, or extra-axial abnormalities are shown. Atherosclerotic calcifications are present in the intracranial segments of the internal carotid arteries. Old foci of encephalomalacia are seen bilaterally. Small thyroid nodules are seen which do not require follow-up by ACR criteria. CTA Neck: The aortic arch and the origins of the innominate, left subclavian, and left common carotid artery are not imaged. Direct origin of the left vertebral artery from the aortic arch is incidentally noted. The common carotid, external carotid, cervical segments of the internal carotid arteries, and the cervical segments of the vertebral arteries are patent without hemodynamically significant stenosis. Again noted is linear filling defect in the petrous segment of the left internal carotid artery. The right vertebral artery is dominant. CTA Head: The anterior and posterior cerebral circulations are patent. origin of the bilateral posterior cerebral arteries noted. IMPRESSION: 1. No acute intracranial hemorrhage, evidence of acute territorial infarction, or other acute intracranial disease process. 2. Again noted is a linear filling defect in the petrous segment of the left internal carotid artery. Otherwise the cervical vasculature is unremarkable. 3. No occlusion, hemodynamically significant stenosis, aneurysm, dissection, or arteriovenous malformation in the major intracranial arteries. Assessment of stenosis of the internal carotid arteries is based on NASCET criteria. ACT 112: Negative or not required by law. Electronically signed by: Yaakov Roman M.D. 10/17/2023 7:54 PM Diagnostic Findings EKG as per my interpretation : Rate 90, NSR, LAD, LAFB, T wave abnormalities inferior leads, PVCs
[2023-10-17] MEDS ORDERED: oxyCODONE HCL IR 5 MG TAB (IMMEDIATE RELEASE) PO PRN (23:31)
[2023-10-17] MEDS ORDERED: PHARMACIST DISCHARGE MED REC CONSULT PRN (23:31)
[2023-10-17] MEDS ORDERED: ACETAMINOPHEN 325 MG TAB PO PRN (23:31)
[2023-10-17] MEDS ORDERED: PROMETHAZINE HCL 6.25 MG in SODIUM CHLORIDE 0.9% 50 ML IV PRN (23:31)
[2023-10-18] MEDS ORDERED: MELATONIN 3 MG TAB PO PRN (01:03)
[2023-10-18] MEDS: SODIUM CHLORIDE 0.9% 1,000 ML IV ONE (01:07)
[2023-10-18] MEDS: APIXABAN 5 MG TABLET PO SCH (02:01)
[2023-10-18] MEDS: CARBIDOPA/LEVODOPA 25/100MG EXT REL TAB PO STA (02:01)
[2023-10-18] MEDS: MIDODRINE HCL 2.5 MG TAB PO SCH (02:02)
--- NOTE | 2023-10-18 04:29 | Magnetic Resonance Report ---
Exam(s): MRI HEAD Without Contrast EXAM: MR Head Without Intravenous Contrast CLINICAL HISTORY: Transient ischemic attack. TECHNIQUE: Magnetic resonance images of the head/brain without intravenous contrast in multiple planes. COMPARISON: CT head 06/18/2023 MRI brain 08/25/2023 FINDINGS: Brain: No acute infarct. No intracranial hemorrhage, mass-effect or midline shift. Moderate periventricular white matter T2/flair signal abnormalities are most consistent with chronic microangiopathy. There is encephalomalacia of the bilateral frontal lobes. Ventricles: Unremarkable. No ventriculomegaly. Bones/joints: Unremarkable. No acute fracture. Sinuses: Unremarkable as visualized. No acute sinusitis. Mastoid air cells: Unremarkable as visualized. No mastoid effusion. Orbits: Unremarkable as visualized. IMPRESSION: No acute findings in the head/brain. Electronically signed by: Lisseth Bravo MD 10/18/23 04:28 AM
--- OUTSIDE RECORDS SUMMARY | 2023-10-18 06:52 | External Medical Summary | Summary of Care ---
Author Name Unknown Organization [facility] Address [address] [facility] [place] [address] Phone [phone] Care Team Providers Care Transaction Advisory Services Manager Name Role Phone Anastasia Reza DO Primary Care Provider [phone] Reason for Visit * Reason Onset Date Comments Advice 10/04/2023 Encounter Details Date Type Department Care Team (Late st Contact Info) Description 10/04/2023 Telephone Family Practice [facility] [address] [place] [address] Anastasia Reza DO [address] [place] [address] Advice Allergies Active Allergy Reactions Criticality Noted Date Comments Chlorpheniramine 07/22/2016 Anxious Chlor Trimeton Ezetimibe High 04/05/2022 Other reaction(s): Weakness documented as of this encounter (statuses as of 10/06/2023) Medications Medication Sig Dispensed Refills Start Date End Date Status Calcium Carb-Cholecalciferol 600-200 MG-UNIT Oral Tablet Take 1 Tablet by mouth daily at noon. Ordered 500-200 mg Active Multiple Vitamin (MULTI-VITAMIN DAILY) Tablet Take 1 Tablet by mouth in the morning. (0800). Active Magnesium Hydroxide 400 MG/5ML Oral Suspension Take 30 mL by mouth daily as needed for Constipation. Active Alendronate Sodium 70 MG Oral Tablet (Fosamax) Take 1 Tablet by mouth once a day on Monday only. (0700) 07/08/2021 Active Aspirin EC 81 MG Oral Tablet Delayed Release Take 1 Tablet by mouth in the morning. 31 Tablet 5 04/21/2022 Active Melatonin 3 MG Oral Tablet Take 1 Tablet by mouth at bedtime as needed for Sleep. Active Digoxin 125 MCG Oral Tablet (Lanoxin)Indications :Persistent atrial fibrillation (HCC),HTN, goal below 130/80,Heart failure, diastolic, with acute decompensation (HCC),HFrEF (heart failure with reduced ejection fraction) (HCC) Take one three days per wek 40 Tablet 3 01/11/2023 Active Additional Information Patient taking differently: 125 mcg Oral MWF, (No instructions reported), Informant: Transferring Facility Documents, Reported on 08/10/2023 Carbidopa-Levodopa 25-100 MG Oral Tablet (Sinemet) Take 0.5 Tablets by mouth in the morning and 0.5 Tablets at noon and 0.5 Tablets before bedtime. 135 Tablet 3 01/16/2023 Active Docusate Sodium 100 MG Oral Capsule (Colace) Take 1 Capsule by mouth 2 times a day. () Active Sennosides 8.6 MG Oral Tablet (Senokot) Take 1 Tablet by mouth 2 times a day. () 12/20/2022 Active D3 2000 50 MCG (1999 UT) Oral Capsule (Cholecalciferol) Take 1 Capsule by mouth in the morning. (0800). Active Pravastatin Sodium 80 MG Oral TabletIndications:Dy slipidemia, goal LDL below 70 Take 1 Tablet by mouth in the morning. 90 Tablet 3 04/28/2023 Active Furosemide 40 MG Oral Tablet (Lasix)Indications:P ersistent atrial fibrillation (HCC),HTN, goal below 130/80,Heart failure, diastolic, with acute decompensation (HCC),HFrEF (heart failure with reduced ejection fraction) (HCC) Take 0.5 Tablets by mouth in the morning. 09/21/2023 Active Spironolactone 25 MG Oral Tablet (Aldactone)Indicatio ns:Persistent atrial fibrillation (HCC),HTN, goal below 130/80,Heart failure, diastolic, with acute decompensation (HCC),HFrEF (heart failure with reduced ejection fraction) (HCC) Take 0.5 Tablets by mouth in the morning. (0800). 07/03/2023 Active Apixaban 5 MG Oral Tablet (Eliquis) Take 2 Tablets by mouth 2 times a day for 10 days, THEN 1 Tablet 2 times a day for 90 days, THEN 0.5 Tablets 2 times a day. 40 Tablet 09/01/2023 Active Additional Information Patient taking differently: 7.5 mg, by mouth, twice daily, Informant: Other/Visitor, Reported on 10/04/2023 Midodrine HCl 5 MG Oral Tablet (Proamatine) TAKE 1 TABLET BY MOUTH THREE TIMES A DAY WITH MEALS 09/21/2023 Active documented as of this encounter (statuses as of 10/06/2023) Active Problems Problem Noted Date Diagnosed Date History of intracranial hemorrhage 08/29/2023 Acute ischemic right WILLIE stroke 08/29/2023 Acute right MCA stroke 08/27/2023 Embolic stroke 08/26/2023 Left hemiparesis 08/26/2023 Acute deep vein thrombosis (DVT) of left lower e xtremity 08/26/2023 Other pulmonary embolism without acute cor pulmo nale 08/26/2023 Intracranial hemorrhage 08/11/2023 Cerebral cavernoma 08/11/2023 Impaired [...] as of this encounter (statuses as of 10/06/2023) Resolved Problems Problem Noted Date Diagnosed Date [...] as of this encounter (statuses as of 10/06/2023) Immunizations Name Administration Dates Next Due COVID-19 mRNA, LNP-s, No Pre serve, 2-Dose Series (Moderna) 07/04/2020,05/30/2020 COVID-19, mRNA, LNP-s, PF, B ooster, 100mcg/0.5mg (Moderna) 09/16/2021,03/22/2021 Covid-19, Mrna, Lnp-s, Pf, B ivalent, 30 Mcg, IM, 12 yrs and above ([employer] Inspar) 01/24/2022 HIB PRP-OMP, 3 dose (Pedvax) 05/15/2019 [...] pur e alcohol) PHQ-2 Answer Date Recorded PHQ Adult Total Score 2 10/04/2023 Hunger Vital Sign Answer Date Recorded Within the past 12 months, y ou worried that your food would run out before you got the money to buy more. Never true 10/04/19 Within the past 12 months, t he food you bought just didn't last and you didn't have money to get more. Never true 10/04/2023 Sex and Gender Information Value Date Recorded [...] you have serious difficulty h earing? No 08/26/2023 Are you blind or do you have serious difficulty seeing, even when wearing glasses? No 08/26/2023 Do you have serious difficul ty walking or climbing stairs? (5 years old or older) Yes 08/26/2023 Do you have difficulty dress ing or bathing? (5 years old or older) Yes 08/26/2023 Because of a physical, menta l, or emotional condition, do you have difficulty doing errands alone such as visiting a doctor s office or shopping? (15 years old or older) Yes 08/26/19 Cognitive Status Response Date of Assessm ent Because of a physical, menta l, or emotional condition, do you have serious difficulty concentrating, remembering, or making decisions? (5 years old or older) Yes 08/26/2023 documented as of this encounter Miscellaneous Notes * Telephone Encounter - Reanna Martin LPN - 10/06/2023 1:04 PM EDT Faxed per request. * Telephone Encounter - Anastasia Reza DO - 10/06/2023 7:52 AM EDT Note completed Please fax * Telephone Encounter - Aleja Garcias MED ASSIST - 10/04/2023 2:24 PM EDT OV still needs signed -- once signed off can fax OV/Medication list. * Telephone Encounter - Farzana Steinberg OSA - 10/04/2023 2:14 PM EDT Caller requesting the following information to be faxed: Name/Company of caller: [employer]/ Information requested to be faxed: medication list signed that was faxed over on 10/03/2023 and office visit notes from date 10/03/2023 Fax number: [phone] Attention to Name/Company: [employer] Any additional information?: N/A documented in this encounter Plan of Treatment Upcoming Encounters Date Type Department Care Team (Late st Contact Info) Description 10/23/2023 10:00 AM EDT Office Visit Cardiology, [facility] [address] [place] [address] Michelle Gallagher CRNP [address] [place] [address] 11/27/2023 9:20 AM EDT Office Visit [facility] [address] [place] [address] Mervat Rizo CRNP [address] [place] [address] 02/01/2024 10:00 AM EDT [facility] [address] [address] Jeanette Fraire PA-C [address] [address] 06/04/2024 9:20 AM EST Office Visit [facility] [address] [place] [address] Anastasia Reza DO [address] [place] [address] Health Maintenance Due Date Last Done Comments [facility] LEVEL FOR MEDICATION MONITORING YEARLY 07/24/1958 Meningitis B Vaccine (Bexsero/Trumemba) (3 of 4 - Increased Risk Bexsero 2-dose series) 07/16/2020 07/17/2019, 05/15/2019 COVID-19 Vaccine (4 - 2022- season) 2022 01/24/2022, 09/16/2021, 03/22/2021, Additional history exists Albumin/Creatinine Ratio 09/09/2023 09/08/2022, 06/29 GFR 03/18/2024 09/16/2023, 08/29, 09/07/2023, Additional history exists MENINGOCOCCAL (MENACTRA/MENVEO) (3 - Risk 2-dose series) 07/16/2024 07/17/2019, 05/15/2019 CKD PHOS USE SMARTSET 50857 08/31/2024 05/0 06/2023, 08/31/2023, 08/30/2023, Additional history exists CKD HGB USE SMARTSET 02630 09/15/202409/15, 09/09/2023, 09/02/2023, Additional history exists Depression Screening 10/03/2024 10/04/2023, 10/03/2023, 10/03/2023 DXA Scan 07/14/2026 07/15/2019 DTaP,Tdap,and Td Vaccines [...] documented as of this encounter Medical Devices Implanted Type Area Nut Processing Supervisor Device Identifier Shelf Expiration Date Model / Serial / Lot Karon Vena Cava Filt Femoral - [id number] Implanted:Qty: 1 on 08/27/2023 at [facility] : PERIPHERAL VASCULAR [id number] 05/31/2026 [id number] / / [id number] documented as of this encounter Advance Directives Documents on File Type Date Recorded Patient Brick Burner Expl anation Power of Pocket Creaser 07/13/2021 Teresa Aguilera in POWER OF ASSISTANT STORE MANAGER * Full Code (Latest Code Status on File) Date Activated Date Inactivated Comments 08/26/2023 10:33 PM 09/01/2023 2:38 PM This order r eflects the patients wishes and were consensually agreed upon. Question Answer Comments Discussion of Advance Directives occurred with: Patient * Full Code Date Activated Date Inactivated Comments 08/10/2023 9:52 AM 08/14/2023 10:19 PM This order reflects the patients wishes and were consensually agreed upon. Question Answer Comments Discussion of Advance Direct red occurred with: Not Discussed due to patient's condition Healthcare Agents on File Name Relationship Healthcare Agent Relationship Communication Teresa Da Silva Adult Child Health Care Agen [facility] (per Health Care Power of Pocket Creaser document) [email or web address] Asim Perez Adult Child First Alternate Health Care Agent (per Health Care Power of Pocket Creaser document) Care Teams Transaction Advisory Services Manager Relationship Specialty Start Date End Date Anastasia Reza DO [address] [place] [address] PCP - General Family Medicine 07/22/16 documented as of this encounter
--- OUTSIDE RECORDS SUMMARY | 2023-10-18 06:52 | External Medical Summary | Summary of Care ---
Author Name Unknown Organization [facility] Address [address] [place] [address] Phone [phone] Care Team Providers Care Cnc Maintenance Technician Name Role Phone Anastasia Reza DO Primary Care Provider [phone] Reason for Visit * Reason Onset Date Comments Hospital Follow-Up Stef Jordan 3 wks ago after fall, hit head, on blood thinners, was in [facility] Follow-Up 10/03/2023 Encounter Details Date Type Department Care Team (Late st Contact Info) Description 10/03/2023 10:00 AM EDT Office Visit Family Practice [facility] [address] [place] [address] Anastasia Reza, [address] [place] [address] Hospital discharge follow-up*; Acute ischemic right WILLIE stroke (HCC); Left hemiparesis (HCC); Acute deep vein thrombosis (DVT) of proximal vein of left lower extremity (HCC); Chronic combined systolic and diastolic heart failure (HCC); Adjustment disorder with depressed mood; Other pulmonary embolism without acute cor pulmonale, unspecified chronicity (HCC); Dyslipidemia, goal LDL below 70; Chronic atrial fibrillation (HCC); HTN, goal below 130/80; Risk and functional assessment Allergies Active Allergy Reactions Criticality Noted Date [...] Sleep. Active Digoxin 125 MCG Oral Tablet (Lanoxin)Indication s:Persistent [...] () 12/20/2022 Active D3 2000 50 MCG (1999) Oral Capsule (Cholecalciferol) Take 1 Capsule by mouth in the morning. (0800). Active Pravastatin Sodium 80 MG Oral TabletIndications:D yslipidemia, goal LDL below 70 Take 1 Tablet by mouth in the morning. 90 Tablet 3 04/28/2023 Active Furosemide 40 MG Oral Tablet (Lasix)Indications: Persistent atrial fibrillation (HCC),HTN, goal below 130/80,Heart failure, diastolic, with acute decompensation (HCC),HFrEF (heart failure with reduced ejection fraction) (HCC) Take 0.5 Tablets by mouth in the morning. 09/21/2023 Active Spironolactone 25 MG Oral Tablet (Aldactone)Indicati ons:Persistent [...] 2 times a day. 40 Tablet 09/01/2023 09/05/19 27 Active Additional Information Patient taking differently: 7.5 mg, by mouth, twice daily, Informant: Other/Visitor, Reported on 10/04/2023 Midodrine HCl 5 MG Oral Tablet (Proamatine) TAKE 1 TABLET BY MOUTH THREE TIMES A DAY WITH MEALS 09/21/2023 Active Escitalopram Oxalate 5 MG Oral Tablet (Lexapro)Indication s:Adjustment disorder with depressed mood Take 1 Tablet by mouth in the morning. 30 Tablet 5 10/06/2023 Active Metoprolol Succinate ER 50 MG Oral Tablet Extended Release 24 Hour (toPROL XL)Indications:Pers istent atrial fibrillation (HCC),HTN, goal below 130/80,Heart failure, diastolic, with acute decompensation (HCC),HFrEF (heart failure with reduced ejection fraction) (HCC) Take 1 Tablet by mouth in the morning. 90 Tablet 3 01/11/2023 10/04/19 24 Discontinu ed(Medicat ion List Clean Up) Escitalopram Oxalate 5 MG Oral Tablet (Lexapro)Indication s:Adjustment disorder with depressed mood Take 1 Tablet by mouth in the morning. 30 Tablet 5 10/03/2023 10/04/19 24 Discontinu ed(Medicat ion List Clean Up) documented as of this encounter (statuses as [...] Overview: found at left parotid, following with [facility] cancer center History of CVA (cerebrovascular accident) 2016 documented as of this encounter (statuses as of 10/06/2023) Resolved Problems Problem Noted Date Diagnosed Date Resolved Date Abnormal CT of the head 08/10/2023 0408/2023 Prediabetes 04/11/2022 05/12/2022 Overview: Per Prediabetes protocol [...] 30 Mcg, IM, 12 yrs and above (Explore Engage) 01/24/2022 HIB PRP-OMP, 3 dose (Pedvax) 05/15/2019 [...] Sign Reading Time Taken Comments Blood Pressure 90/62 10/03/2023 10:27 AM EDT Pulse 68 10/03/2023 10:27 AM EDT Temperature 36.4 C (97.5 F) 10/03/2023 10:27 AM E DT Respiratory Rate 16 10/03/2023 10:27 AM EDT Oxygen Saturation - - Inhaled Oxygen Concentration - - Weight 58.1 kg (128 lb) 10/03/2023 10:27 AM EDT pt reported Height - - Body Mass Index 23.41 08/28/2023 8:00 AM EDT documented in this encounter Functional [...] Yes 08/26/2023 documented as of this encounter Patient Instructions * Patient Instructions* Suzanne Marx RN - 10/03/2023 10:26 AM EDT Patient Instructions - Fall Prevention (This education is for all patients over 65 regardless of symptoms) Remember to take your current medications as prescribed. In order to prevent falls, you are encouraged to: Exercise Utilize assistive/adaptive devices Avoid multifocal lenses when walking Avoid hazards in home Maintain a regular toileting schedule Any questions please contact our office. Preventing Falls in the Home (This education is for all patients over 65 regardless of symptoms) As you get older, falls are more likely. Thats because your reaction time slows. Your muscles and joints may also get stiffer, making them less flexible. Illness, medications, and vision changes can also affect your balance. A fall could leave you unable to live on your own. To make your home safer, follow these tips: Floors Put nonskid pads under area rugs Remove throw rugs Replace worn floor coverings Tack carpets firmly to each step on carpeted stairs. Put nonskid strips on the edges of uncarpeted stairs Keep floors and stairs free of clutter and cords Arrange furniture so there are clear pathways Clean up any spills right away Bathrooms Install grab bars in the tub or shower Apply nonskid strips or put a nonskid rubber mat in the tub or shower Sit on a bath chair to bathe Use bathmats with nonskid backing Lighting Keep a flashlight in each room Put a nightlight along the pathway between the bedroom and the bathroom Ivette Patient Education Copyright 2008 - 2010 Ivette except where otherwise noted Preventing Falls: Exercises to Improve Balance, Flexibility, Strength, and Staying Power (This education is for all patients over 65 regardless of symptoms) Certain types of exercises may help make you less likely to fall. Try the ones below. Or do other exercises that your healthcare provider suggests. Depending on your health, you may need to start slowly. Dont let that stop you. Even small amounts of exercise can help you. Be sure to talk to yourhealthcare provider before starting any exercise program. Improve Balance Many types of exercise can help improve balance. Jonnathan chi and yoga are good examples. Heres another one to try. You can do it anytime and almost anywhere. Stand next to a counter or solid support. Push yourself up onto your tiptoes. Hold for 5 seconds. If you start to lose your balance, hold on to the counter. Rest and repeat 5 times. Work up to holding for 20 to 30 seconds, if you can. Increase Flexibility Being more flexible makes it easier for you to move around safely. Try exercises like the seated hamstring stretch. Sit in a chair and put one foot on a stool. Straighten your leg and reach with both hands down either side of your leg. Reach as far down your leg as you can. Hold for about 20 seconds. Go back to the starting position. Then repeat 5 times. Switch legs. Build Strength Resistance exercises help build strength. You can do them without equipment. Or you can use weights, elastic bands, or special machines. One such exercise is called the biceps curl. You can hold a 1 pound weight or even a can of soup. Do this exercise at least 3 times a week. Strive for everyday. Sit up straight in a chair. Keep your elbow close to your body and your wrist straight. Bend your arm, moving your hand up to your shoulder. Then slowly lower your arm. Repeat 5 times. Switch to the other arm. Build Your Staying Power Aerobic exercises make your heart and lungs stronger so you can keep moving longer. Walking and swimming are two of the best types of exercises you can do. Using a stationary bike is great, too. Find an aerobic exercise that you enjoy. Start slowly and build up. Even 5 minutes is helpful. Aimfor a goal of 30 minutes, at least 3 times a week. You dont have to do 30 minutes in one session. Break it up and walk a little throughout the day. More Helpful Tips Start easy. Slowly work up to doing more. Talk with your healthcare provider about the best exercises for you. Call senior centers or health clubs about exercise programs. If needed, have a family member watch you walk every so often to check your stability. Exercise with a friend. Choose an activity you both enjoy. Try exercises that you can do anytime, anywhere. Here are two examples. Have someone with you when you first try these: Practice walking by placing one foot right in front of the other. Stand up and sit down 10 times. Repeat this throughout the day. Ivette Patient Education Copyright 2009 - 2010 Ivette except where otherwise noted. Preventing Falls: Moving Safely Using a Cane or Walker (This education is for all patients over 65 regardless of symptoms) Keep the cane away from your feet so you dont trip. A walking aid, such as a cane or walker, can help you stay more independent and avoid falls. Remember to keep your walking aid within easy reach when youre in a chair or in bed. And learn how to use it safely so you dont injure yourself. Using a Cane If you have a stronger side, hold the cane on that side. Get your balance. Move the cane and your weaker leg forward. Support your weight on both the cane and your weaker side. Step with your stronger leg. Start again from step 1. If youre using a folding walker, be sure you know how to lock it open. Check that its locked open before each use. Using a Walker Roll the walker (or lift it, if youre using one without wheels) forward about 12 inches. Step forward with your weaker leg first. Use the walker to help keep your balance. Bring your other foot forward to the center of the walker. Start again from step 1. Helpful Tips Check with your healthcare provider about the right walking aid to use. Ask about a walker with a seat attached. Check the tips of your cane or walker to make sure they have nonskid covers. Move slowly from room to room. Dont kerr. Sit down to get dressed. Use a aylin pack or backpack to keep your hands free. Get help for jobs that mean climbing, even on a stepstool. Ivette Patient Education Copyright 2008 - 2010 Ivette except where otherwise noted. Urinary Incontinence Plan of Care Documentation: (This education is for all patients over 65 regardless of symptoms) Current medications reconciled. Patient encouraged to: Practice kegal exercises Provide education materials Use the restroom every 2 hours throughout the day Limit caffeine, alcohol, spicy foods and acidic foods Keep a bladder diary Limit fluid intake 3-4 hours before bed Lose weight Prevent constipation Take fluid pills at a time when you can get to the bathroom quickly Control sugar better if diabetic Limit fluid intake to 60 oz. per day Wear support stockings (TEDs)if you have edema Suzanne Marx RN 10/03/2023 Kegel Exercises Kegel exercises dont require special clothing or equipment. Theyre easy to learn and simple to do. And if you do them right, no one can tell youre doing them, so they can be done almost anywhere. Your doctor, nurse, or physical therapist can answer any questions you have and help you get started. A Weak Pelvic Floor The pelvic floor muscles may weaken due to aging, and vaginal childbirth, injury, surgery, chronic cough, or lack of exercise. If the pelvic floor is weak, your bladder and other pelvic organs may sag out of place. The urethra may also open too easily and allow urine to leak out. Kegel exercises can help you strengthen your pelvic floor muscles so they can better support the pelvic organs and control urine flow. How Kegel Exercises Are Done Try each of the Kegel exercises described below. When youre doing them, try not to move your leg, buttock, or stomach muscles. While youre urinating, try to stop the flow of urine. Start and stop it as often as you can. Contract as if you were stopping your urine stream, but do it when youre not urinating. Tighten your rectum as if trying not to pass gas. Contract your anus, but dont move your buttocks. Helpful Hints Do your Kegels as often as you can. The more you do them, the faster youll feel the results. Pick an activity you do often as a reminder. For instance, do your Kegels every time you sit down. Tighten your pelvic floor before you sneeze, get up from a chair, cough, laugh, or lift. This protects your pelvic floor from injury and can help prevent urine leakage. Try to hold each Kegel for a slow count to five. You probably wont be able to hold them for thatlong at first, but keep practicing. It will get easier as your pelvic floor gets stronger. Eventually, special weights that you place in your vagina may be recommended to help make your Kegels even more effective. Ivette Patient Education Copyright 2009 - 2010 Ivette except where otherwise noted. Here are some helpful tips for your urinary incontinence: (This education is for all patients over 65 regardless of symptoms) Practice Kegel exercises Use the restroom every 2 hours throughout the day Limit caffeine, alcohol, spicy foods, and acidic foods Keep a bladder diary Limit fluid intake 3-4 hours before bed Lose weight Prevent constipation Take fluid pills at a time when can get to the bathroom quickly Control sugar better if diabetic Limit fluid intake to 60 oz. per day Any questions, please feel free to contact our office. documented in this encounter Progress Notes * Anastasia Reza Adán, DO - 10/03/2023 10:51 AM EDT Subjective: Sofya Perez is a 83 year old female. Chief Complaint Patient presents with Hospital Follow-Up Stef Jordan 3 wks ago after fall, hit head, on blood thinners, was in [facility] HPI: Pt presents for hospital follow up. She was transferred to [facility] from [facility] on 08/26/23 after presenting w/L sided weakness. Discharged on 09/01/23. Pt was diagnosed w/CVA w/evidence of R posterior frontal infarct and subacute L frontal temporal hemorrhage. There was question as to a L internal carotid artery dissection. Vascular surgery recommended medial management. Echo showed a R atrial thrombus, b/l LE dopplers showed L posterior tibial vein thrombus and CT w/multiple segmental PEs. An IVC filter was placed. Eliquis was restarted (previously stopped bc of previous hemorrhagic stroke). Anastrozole was also discontinued bc of increased risk of thrombus. Her hospital course was complicated by periods of delirium. Pt currently feels tired, very depressed. Weak, shakey, working on PT Sleeping okay, appetite is normal. Gets frustrated w/physical limitations, feels discouraged at some times, other times sees progress Daughter reports frequent crying, gets upset PHM: Patient Active Problem List Diagnosis History of CVA (cerebrovascular accident) Lymphoma (HCC) Atrial fibrillation (HCC) Dyslipidemia Cerebrovascular disease, arteriosclerotic, post-stroke HTN, goal below 130/80 S/P splenectomy Systolic dysfunction Dyslipidemia, goal LDL below 70 SOB (shortness of breath) Frequent PVCs Chronic kidney disease, stage 3b (HCC) Breast cancer (HCC) Primary pancreatic neuroendocrine tumor PHT (pulmonary hypertension) (HCC) Paroxysmal atrial fibrillation (HCC) Medical home patient encounter Hospital discharge follow-up Fall Chronic combined systolic and diastolic heart failure (HCC) Ambulatory dysfunction Need for influenza vaccination Protein-calorie malnutrition (HCC) Right-sided sensory deficit present Chronic anticoagulation Intracranial hemorrhage (HCC) Cerebral cavernoma Impaired mobility and ADLs Embolic stroke (HCC) Left hemiparesis (HCC) Acute deep vein thrombosis (DVT) of left lower extremity (HCC) Other pulmonary embolism without acute cor pulmonale (HCC) Acute right MCA stroke (HCC) History of intracranial hemorrhage Acute ischemic right WILLIE stroke (HCC) Current Outpatient Medications Medication Sig Dispense Refill Calcium Carb-Cholecalciferol 600-200 MG-UNIT Oral Tablet Take 1 Tablet by mouth in the morning. (0800). Multiple Vitamin (MULTI-VITAMIN DAILY) Tablet Take 1 Tablet by mouth in the morning. (0800). Magnesium Hydroxide 400 MG/5ML Oral Suspension Take 30 mL by mouth daily as needed for Constipation. Alendronate Sodium 70 MG Oral Tablet (Fosamax) Take 1 Tablet by mouth once a day on Monday only. (0700) Aspirin EC 81 MG Oral Tablet Delayed Release Take 1 Tablet by mouth in the morning. 31 Tablet 5 Melatonin 3 MG Oral Tablet Take 1 Tablet by mouth at bedtime as needed for Sleep. Digoxin 125 MCG Oral Tablet (Lanoxin) Take one three days per wek (Patient taking differently: Take1 Tablet by mouth once a day on Monday, Monday, and Monday only.) 40 Tablet 3 Metoprolol Succinate ER 50 MG Oral Tablet Extended Release 24 Hour (toPROL XL) Take 1 Tablet by mouth in the morning. 90 Tablet 3 Carbidopa-Levodopa 25-100 MG Oral Tablet (Sinemet) Take 0.5 Tablets by mouth in the morning and 0.5Tablets at noon and 0.5 Tablets before bedtime. 135 Tablet 3 Docusate Sodium 100 MG Oral Capsule (Colace) Take 1 Capsule by mouth 2 times a day. () Sennosides 8.6 MG Oral Tablet (Senokot) Take 1 Tablet by mouth 2 times a day. () D3 2000 50 MCG (1999 UT) Oral Capsule (Cholecalciferol) Take 1 Capsule by mouth in the morning. (0800). Pravastatin Sodium 80 MG Oral Tablet Take 1 Tablet by mouth in the morning. 90 Tablet 3 Furosemide 40 MG Oral Tablet (Lasix) Take 1.5 Tablets by mouth once a day on Monday, Monday, andiday only. And 40 mg all other days (0800) Spironolactone 25 MG Oral Tablet (Aldactone) Take 0.5 Tablets by mouth in the morning. (0800). Apixaban 5 MG Oral Tablet (Eliquis) Take 2 Tablets by mouth 2 times a day for 10 days, THEN 1 Tablet 2 times a day for 90 days, THEN 0.5 Tablets 2 times a day. 40 Tablet 0 Midodrine HCl 5 MG Oral Tablet (Proamatine) TAKE 1 TABLET BY MOUTH THREE TIMES A DAY WITH MEALS No current facility-administered medications for this visit. 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, following with [facility] cancer center Parotid mass 12/11/2018 left, [...] performed by Morena Matthew MD at [facility] DENTAL SURGERY PROCEDURE NEC IDENTIFY SENTINEL NODE, RADIOACTIVE TRACER Right 04/22/2020 INJECTION PROCEDURE FOR IDENTIFICATION SENTINEL NODE performed by Morena Matthew MD at [facility] IR VENOUS IVC FILTER 08/27/2023 MASTECTOMY, PARTIAL Right 04/22/2020 MASTECTOMY PARTIAL performed by Morena Mattehw MD at [facility] PROCEDURE - GENERAL Left 03/11/2021 inner,lower left breast punch biopsy by Dr Morena Matthew REMOVAL OF PAROTID GLAND/TUMOR Left 01/28/2019 REMOVAL OF TONSILS, AGE 12+ TOTAL HIP REPLACEMENT & PROSTHESIS Bilateral L 2007, R 2008 Review of patient's allergies indicates: Allergen Reactions Ezetimibe Other reaction(s): Weakness Chlorpheniramine Anxious Chlor Trimeton Objective: BP 90/62 (BP Site: Right Arm, BP Position: Sitting, BP Cuff Size: Regular) | Pulse 68 | Temp 36.4 C (97.5 F) (Tympanic) | Resp 16 | Wt 58.1 kg (128 lb) Comment: pt reported | BMI 23.41 kg/m | BSA 1.59 m Review of Systems: As per HPI, all other ROS neg. Physical Exam: General: alert, healthy, and no distress Heart: no murmur, no gallops, and irregularly irregular Lungs: chest symmetric with normal AP diameter, no chest deformities noted, no chest wall tenderness, lungs clear to auscultation Extremities: no joint deformities, effusion, or inflammation, trace LE edema b/l Neuro Exam: alert & oriented x 3 with fluent speech, no focal motor/sensory deficits, + weakness L upper and lower extremity Hospital discharge follow-up (Primary) - DISCH MED RECON CUR MED LIS Acute ischemic right WILLIE stroke (HCC) Cont eliquis, statin, bp control Cont PT/OT Left hemiparesis (HCC) Acute deep vein thrombosis (DVT) of proximal vein of left lower extremity (HCC) Restarted anticoagulation when hospitalized Chronic combined systolic and diastolic heart failure (HCC) Appears euvolemic at this time Adjustment disorder with depressed mood - Escitalopram Oxalate 5 MG Oral Tablet (Lexapro); Take 1 Tablet by mouth in the morning. Pt agreeable to starting low dose Other pulmonary embolism without acute cor pulmonale, unspecified chronicity (HCC) Dyslipidemia, goal LDL below 70 Cont pravastatin - unable to tolerate higher intensity statins Chronic atrial fibrillation (HCC) Rate controlled HTN, goal below 130/80 Monitor for hypotension Risk and functional assessment I spent a total of 40-54 minutes (exact time 45 mins) on the date of service in preparation, delivery, and documentation of the care provided to Sofya Perez excluding any time spent in the performance of separately billed services. Follow up: in 3 month(s). Anastasia Reza DO * Suzanne Marx RN - 10/03/2023 10:26 AM EDT Fall Risk Plan of Care Documentation: - Current medications reconciled Patient encouraged to: - Exercise - Provide education materials for Core strengthening - Utilize assistive/adaptive devices - Provide education materials - Avoid multifocal lenses when walking - Avoid hazards in home - Provide education materials - Maintain a regular toileting schedule Suzanne Marx, FARTUN 10/03/2023 Urinary Incontinence Plan of Care Documentation: (This education is for all patients over 65 regardless of symptoms) Current medications reconciled. Patient encouraged to: Practice kegal exercises Provide education materials Use the restroom every 2 hours throughout the day Limit caffeine, alcohol, spicy foods and acidic foods Keep a bladder diary Limit fluid intake 3-4 hours before bed Lose weight Prevent constipation Take fluid pills at a time when you can get to the bathroom quickly Control sugar better if diabetic Limit fluid intake to 60 oz. per day Wear support stockings (TEDs)if you have edema Suzanne Marx RN 10/03/2023 documented in this encounter Plan of Treatment Upcoming Encounters Date Type Department Care Team (Late st Contact Info) Description 10/23/2023 10:00 AM EDT Office Visit Cardiology, [facility] [address] [address] Michelle Gallagher CRNP [address] [address] 11/27/2023 9:20 AM EDT Office Visit [facility] [address] [address] Mervat Rizo CRNP [address] [address] 02/01/2024 10:00 AM EDT Office Visit [facility] [address] [facility] [place] [address] Jeanette Fraire PA-C [address] [place] [address] 06/04/2024 9:20 AM EST Office Visit [facility] [address] [address] Anastasia Reza DO [address] [address] Health Maintenance Due Date Last Done Comments DIG LEVEL FOR MEDICATION MONITORING YEARLY 07/24/1958 Meningitis B Vaccine (Bexsero/Trumemba) (3 of 4 - Increased Risk Bexsero 2-dose series) 07/16/2020 07/17/2019, 05/15/2019 COVID-19 Vaccine (4 - season) 2022 01/24/2022, 09/16/2021, 03/22/2021, Additional history exists Albumin/Creatinine Ratio 09/09/2023 09/08/2022, 06/29 GFR 03/18/2024 09/16/2023, 08/29, 09/07/2023, Additional history exists MENINGOCOCCAL (MENACTRA/MENVEO) (3 - Risk 2-dose series) 07/16/2024 07/17/2019, 05/15/2019 CKD PHOS USE SMARTSET [id number] 08/31/2024 05/0 06/2023, 08/31/2023, 08/30/2023, Additional history exists CKD HGB USE SMARTSET [id number] 09/15/202409/15, 09/09/2023, 09/02/2023, Additional history exists Depression [...] this encounter Medical Devices Implanted Type Area Job Training Specialist Device Identifier Shelf Expiration Date Model / Serial / Lot [place] Vena Cava Filt Femoral - [id number] Implanted:Qty: 1 on 08/27/2023 at [facility] : PERIPHERAL VASCULAR [id number] 05/31/2026 [id number] / / [id number] documented as of this encounter Visit Diagnoses Diagnosis Hospital discharge follow-up- Primary Other follow-up examination Acute ischemic right WILLIE stroke (HCC) Unspecified cerebral artery occlusion with cerebral infarction Left hemiparesis (HCC) Hemiplegia, unspecified, affecting unspecified side Acute deep vein thrombosis (DVT) of proximal vein of left lower extremity (HCC) Chronic combined systolic and diastolic heart failure (HCC) Chronic combined systolic and diastolic heart failure Adjustment disorder with depressed mood Other pulmonary embolism without acute cor pulmonale, unspecified chronicity (HCC) Dyslipidemia, goal LDL below 70 Other and unspecified hyperlipidemia Chronic atrial fibrillation (HCC) Atrial fibrillation HTN, goal below 130/80 Unspecified essential hypertension Risk and functional assessment Screening for unspecified condition documented in this encounter Advance Directives Documents on File Type Date Recorded Patient Hse Advisor Expl anation Power of Game Farm Helper 07/13/2021 Teresa Crowder [place] in POWER OF SUPERVISOR PACKING ROOM * Full Code (Latest Code Status on [...] Agen t (per Health Care Power of Game Farm Helper document) [email or web address] Asim Perez Adult Child First Alternate Health Care Agent (per Health Care Power of Game Farm Helper document) Care Teams Cnc Maintenance Technician Relationship Specialty Start Date End Date Anastasia Reza DO [address] [address] PCP - General Family Medicine 07/22/16 documented as of this encounter"
--- OUTSIDE RECORDS SUMMARY | 2023-10-18 06:52 | External Medical Summary | Summary of Care ---
Author Name Unknown Organization [facility] Address [address] [place] [address] Phone [phone] Care Team Providers Care Crozer Operator Name Role Phone Anastasia Reza DO Primary Care Provider [phone] Reason for Visit * Reason Onset Date Comments Hospital Follow-Up Stef Jordan 3 wks ago after fall, hit head, on blood thinners, was [facility] Hospital Follow-Up 10/03/2023 Encounter Details Date Type Department Care Team (Late st Contact Info) Description 10/03/2023 10:00 AM EDT Office Visit Family Practice [facility] [address] [place] [address] Anastasia Reza, [address] [place] [address] Hospital discharge follow-up*; Acute ischemic right WILLIE [...] Overview: found at left parotid, following with [facility] cancer center History of CVA (cerebrovascular accident) [...] 30 Mcg, IM, 12 yrs and above ([employer] Prize) 01/24/2022 HIB PRP-OMP, 3 dose (Pedvax) 05/15/2019 [...] hit head, on blood thinners, [facility] HPI: Pt presents for hospital follow up. She was transferred to [facility] from [facility] on 08/26/23 after presenting w/L sided weakness. [...] 01/2019 found at left parotid, following with [facility] cancer center Parotid mass 12/11/2018 left, partotidectomy [...] performed by Morena Matthew MD at OR [facility] DENTAL SURGERY PROCEDURE NEC IDENTIFY SENTINEL NODE, RADIOACTIVE TRACER Right 04/22/2020 INJECTION PROCEDURE FOR IDENTIFICATION SENTINEL NODE performed by Morena Matthew MD at OR [facility] IR VENOUS IVC FILTER 08/27/2023 MASTECTOMY, PARTIAL Right 04/22/2020 MASTECTOMY PARTIAL performed by Morena Matthew MD at [facility] PROCEDURE - GENERAL Left 03/11/2021 inner,lower [...] 10/23/2023 10:00 AM EDT Office Visit Cardiology, [facility] [address] [address] Michelle Gallagher CRNP [address] [address] 11/27/2023 9:20 AM EDT Office Visit [facility] [address] [address] Mervat Rizo CRNP [address] [address] 02/01/2024 10:00 AM EDT [facility] [address] [facility] [place] [address] Jeanette Fraire PA-C [address] [place] [address] 06/04/2024 9:20 AM EST Office Visit [facility] [address] [address] Anastasia Reza DO [address] [address] Health Maintenance Due Date Last Done Comments [...] 07/16/2024 07/17/2019, 05/15/2019 CKD PHOS USE SMARTSET 75772 08/31/2024 05/0 06/2023, 08/31/2023, 08/30/2023, Additional history exists CKD HGB USE SMARTSET 37005 09/15/202409/15, 09/09/2023, 09/02/2023, Additional history exists Depression [...] this encounter Medical Devices Implanted Type Area Rag Willow Operator Device Identifier Shelf Expiration Date Model / Serial / Lot Brule Vena Cava Filt Femoral - [id number] Implanted:Qty: 1 on 08/27/2023 at [facility] BARD : PERIPHERAL VASCULAR [id number] 05/31/2026 [id number] / / [id number] documented as of this encounter Visit Diagnoses [...] Documents on File Type Date Recorded Patient Senior Etl Developer Expl anation Power of Drag Out Man 07/13/2021 Teresa Crowder [place] in POWER OF PLANER SETTER * Full Code (Latest Code Status on [...] Agen t (per Health Care Power of Drag Out Man document) [email or web address] Asim Perez Adult Child First Alternate Health Care Agent (per Health Care Power of Drag Out Man document) Care Teams Crozer Operator Relationship Specialty Start Date End Date Anastasia Reza DO [address] [address] PCP - General Family Medicine 07/22/16 documented as of this encounter"
--- OUTSIDE RECORDS SUMMARY | 2023-10-18 06:52 | External Medical Summary | Summary of Care ---
Author Name Unknown Organization [facility] Address [address] [place] [address] Phone [phone] Care Team Providers Care Car Repairman Name Role Phone LibiaAnastasia Adán DIOR Primary Care Provider [phone] Reason for Visit * Reason Onset Date Comments case management 10/04/2023 Appointment 10/04/2023 Needs changed Encounter Details Date Type Department Care Team (Late st Contact Info) Description 10/04/2023 Telephone Care Coordination and Integration [address] [place] [address] Juliann Zambrano RN [address] [place] [address] case management; Appointment (Needs changed) Allergies Active Allergy Reactions Criticality Noted Date Comments Chlorpheniramine 07/22/2016 Anxious Chlor Trimeton Ezetimibe High 04/05/2022 Other reaction(s): Weakness documented as of this encounter (statuses as of 10/05/2023) Medications Medication Sig Dispensed Refills Start Date [...] as of this encounter (statuses as of 10/05/2023) Active Problems Problem Noted Date Diagnosed Date [...] Overview: found at left parotid, following with [facility] cancer center History of CVA (cerebrovascular accident) 2016 documented as of this encounter (statuses as of 10/05/2023) Resolved Problems Problem Noted Date Diagnosed Date [...] as of this encounter (statuses as of 10/05/2023) Immunizations Name Administration Dates Next Due COVID-19 [...] encounter Miscellaneous Notes * Telephone Encounter - Gillian Fregoso OSA - 10/05/2023 2:02 PM EDT Spoke to jagdish diaz appt scheduled with Gallo Rizo and she was involved in scheduling date/time I also rescheduled her may 2024 appt to jun for a morning appt as she uses transportation and can'tdo late afternoon * Telephone Encounter - Anastasia Reza DO - 10/05/2023 1:53 PM EDT AP okay * Telephone Encounter - Gillian Fregoso OSA - 10/05/2023 7:43 AM EDT You dont have any openings till May/Jun 2024, ok to offer an AP for her? * Telephone Encounter - Juliann Zambrano RN - 10/04/2023 5:49 PM EDT Patient has a PCP appointment on 10/31/23 - needs changed. Uses [employer] for transportation. It is too late in the day for the van. Please call Araceli, at the [facility], to reshedule. [phone]. Thank you. documented in this encounter Plan of Treatment Upcoming Encounters Date Type Department Care Team (Late st Contact Info) Description 10/23/2023 10:00 AM EDT Office Visit Cardiology, [facility] [address] [place] [address] Michelle Gallagher CRNP [address] [place] [address] 11/27/2023 9:20 AM EDT Office Visit [facility] [address] [place] [address] Mervat Rizo CRNP [address] [place] [address] 02/01/2024 10:00 AM EDT [facility] [address] [facility] [place] [address] Jeanette Fraire PA-C [address] [facility] [place] [address] 06/04/2024 9:20 AM EST Office Visit [facility] [address] [place] [address] Anastasia Reza DO [address] [place] [address] Health Maintenance Due Date Last Done Comments [...] 07/16/2024 07/17/2019, 05/15/2019 CKD PHOS USE SMARTSET 45119 08/31/2024 05/0 06/2023, 08/31/2023, 08/30/2023, Additional history exists CKD HGB USE SMARTSET 45191 09/15/202409/15, 09/09/2023, 09/02/2023, Additional history exists Depression [...] this encounter Medical Devices Implanted Type Area Skills Auditor Device Identifier Shelf Expiration Date Model / Serial / Lot Isanti Vena Cava Filt Femoral - [id number] Implanted:Qty: 1 on 08/27/2023 at [facility] BARD : PERIPHERAL VASCULAR [id number] 05/31/2026 [id number] / / [id number] documented as of this encounter Advance Directives Documents on File Type Date Recorded Patient Precision Aircraft Structure Assembler Expl anation Power of Senior Naval Parachutist 07/13/2021 Teresa Aguilera in POWER OF JAVA SECURITY ARCHITECT * Full Code (Latest Code Status on [...] Agen ivory (per Health Care Power of Senior Naval Parachutist document) [email or web address] Asim Perez Adult Child First Alternate Health Care Agent (per Health Care Power of Senior Naval Parachutist document) Care Teams Car Repairman Relationship Specialty Start Date End Date Anastasia Reza DO [address] [id number] PCP - General Family Medicine 07/22/16 documented as of this encounter
--- OUTSIDE RECORDS SUMMARY | 2023-10-18 06:52 | External Medical Summary | Summary of Care ---
Author Name Unknown Organization [facility] Address [address] [place] [address] Phone [phone] Care Team Providers Care Ager Operator Name Role Phone LibiaAnastasia Aádn DIOR Primary Care Provider [phone] Reason for Visit * Reason Onset Date Comments case management 10/04/2023 Appointment 10/04/2023 Needs changed Encounter Details Date Type Department Care Team (Late st Contact Info) Description 10/04/2023 Telephone Care Coordination and Integration [address] [place] [address] Juliann Zambrano RN [address] [place] [address] case management; Appointment (Needs changed) [...] Overview: found at left parotid, following with [facility] cancer center History of CVA [...] appointment on 10/31/23 - needs changed. Uses [employer] for transportation. It is too late in the day for the van. Please call Araceli, at the [facility], to reshedule. [phone]. Thank you. documented in this encounter Plan of Treatment Upcoming Encounters Date Type Department Care Team (Late st Contact Info) Description 10/23/2023 10:00 AM EDT Office Visit Cardiology, [facility] [address] [facility] [place] [address] Michelle Gallagher CRNP [address] [place] [address] 11/27/2023 9:20 AM EDT Office Visit [facility] [address] [place] [address] Mervat Rizo CRNP [address] [place] [address] 02/01/2024 10:00 AM EDT Office [facility] [address] [facility] [place] [address] Jeanette Fraire PA-C [address] [facility] [place] [address] 06/04/2024 9:20 AM EST Office Visit [facility] [address] [place] [address] Anastasia Reza DO [address] [place] [address] Health Maintenance Due Date Last Done Comments [...] 07/16/2024 07/17/2019, 05/15/2019 CKD PHOS USE SMARTSET 72621 08/31/2024 05/0 06/2023, 08/31/2023, 08/30/2023, Additional history exists CKD HGB USE SMARTSET 28025 09/15/202409/15, 09/09/2023, 09/02/2023, Additional history exists Depression [...] this encounter Medical Devices Implanted Type Area Drug Abuse Technician Device Identifier Shelf Expiration Date Model / Serial / Lot Bolivar Vena Cava Filt Femoral - [id number] Implanted:Qty: 1 on 08/27/2023 at [facility] BARD : PERIPHERAL VASCULAR [id number] 05/31/2026 [id number] / / [id number] documented as of this encounter Advance Directives Documents on File Type Date Recorded Patient Boiler Reliner Expl anation Power of Rug Shampooer 07/13/2021 Teresa Aguilera in POWER OF METAL BUGGY OPERATOR * Full Code (Latest Code Status on [...] Agen ivory (per Health Care Power of Rug Shampooer document) [email or web address] Asim Perez Adult Child First Alternate Health Care Agent (per Health Care Power of Rug Shampooer document) Care Teams Ager Operator Relationship Specialty Start Date End Date Anastsaia Reza DO [address] [id number] PCP - General Family Medicine 07/22/16 documented as of this encounter
--- OUTSIDE RECORDS SUMMARY | 2023-10-18 06:52 | External Medical Summary | Summary of Care ---
Author Name Unknown Organization [facility] Address [address] [place] [address] Phone [phone] Care Team Providers Care Industrial Chemicals Supervisor Name Role Phone Anastasia Reza DO Primary Care Provider [phone] Encounter Details Date Type Department Care Team (Late st Contact Info) Description 10/13/2023 2:15 PM EDT Scheduled Telephone Care Coordination and Integration [address], [place] [id number] [facility] [address], [place] [id number] Allergies Active Allergy Reactions Criticality Noted Date Comments Chlorpheniramine 07/22/2016 Anxious Chlor Trimeton Ezetimibe High 04/05/2022 Other reaction(s): Weakness documented as of this encounter (statuses as of 10/13/2023) Medications Medication Sig Dispensed Refills Start Date [...] Active Escitalopram Oxalate 5 MG Oral Tablet (Lexapro)Indications :Adjustment disorder with depressed mood Take 1 Tablet by mouth in the morning. 30 Tablet 5 10/06/2023 Active documented as of this encounter (statuses as of 10/13/2023) Active Problems Problem Noted Date Diagnosed Date [...] Overview: found at left parotid, following with [facility] cancer center History of CVA (cerebrovascular accident) 2016 documented as of this encounter (statuses as of 10/13/2023) Resolved Problems Problem Noted Date Diagnosed Date [...] as of this encounter (statuses as of 10/13/2023) Immunizations Name Administration Dates Next Due COVID-19 [...] money to buy more. Never true 10/04/19 24 Within the past 12 months, t he [...] Yes 08/26/2023 documented as of this encounter Progress Notes * [facility] - 10/13/2023 1:01 PM EDT Telemedicine visit: No [facility] ([facility]) documentation: CHW f/u call week 1 per Andree Menendez RNCM CHW spoke with Araceli at [facility] where pt is staying. CHW survey completed. Denies falls No nosebleeds Wt.'s are fluctuating between 128- 130 Pt is still getting therapies Electronically signed by [facility] at 10/13/2023 1:12 PM EDT documented in this encounter Plan of Treatment Upcoming Encounters Date Type Department Care Team (Late st Contact Info) Description 10/23/2023 10:00 AM EDT Office Visit Cardiology, [facility] [address] [place] [address] Michelle Gallagher CRNP [address] [place] [address] 11/27/2023 9:20 AM EDT [facility] [address] [address] Mervat Rizo CRNP [address] [place] [address] 02/01/2024 10:00 AM EDT Office Visit Neurology [facility] [place] [address] [place] [address] Jeanette Fraire PA-C [address] [place] [address] 06/04/2024 9:20 AM EST Office Visit Family [facility] [address] [place] [address] Anastasia Reza DO [address] [place] [address] Health Maintenance Due Date Last Done Comments [...] 07/16/2024 07/17/2019, 05/15/2019 CKD PHOS USE SMARTSET 23130 08/31/2024 05/06/2023, 08/31/2023, 08/30/2023, Additional history exists CKD HGB USE SMARTSET 36921 09/15/202409/15, 09/09/2023, 09/02/2023, Additional history exists Depression Screening 10/03/2024 10/04/2023, 10/03/2023, 10/03/2023 DXA Scan 03/16/2030 03/16/2023, 07/15/2019 DTaP,Tdap,and Td Vaccines (3 - Td [...] this encounter Medical Devices Implanted Type Area College Admissions Counselor Device Identifier Shelf Expiration Date Model / Serial / Lot Karon Vena Cava Filt Femoral - [id number] Implanted:Qty: 1 on 08/27/2023 at [facility] BARD : PERIPHERAL VASCULAR [id number] 05/31/2026 [id number] / / [id number] documented as of this encounter Advance Directives Documents on File Type Date Recorded Patient Welder Pipe Making Expl anation Power of Grinder Dresser 07/13/2021 Teresa Crowder [place] in POWER OF INFORMATION SECURITY CONSULTANT * Full Code (Latest Code Status on [...] Agen t (per Health Care Power of Grinder Dresser document) [email or web address] Asim Perez Adult Child First Alternate Health Care Agent (per Health Care Power of Grinder Dresser document) Care Teams Industrial Chemicals Supervisor Relationship Specialty Start Date End Date Anastasia Reza DO [address] [address] PCP - General Family Medicine 07/22/16 documented as of this encounter
[2023-10-18 07:20] LABS: Basophils # (auto) 0.03 K/uL (0.00-0.20); Basophils % (auto) 0.6 %; Eosinophils # (auto) 0.15 K/uL (0.00-0.50); Eosinophils % (auto) 2.9 %; Hemoglobin 11.4 g/dl (12.0-16.0); Immature Granulocytes # (auto) 0.01 K/uL (0.01-0.20); Immature Granulocytes % (auto) 0.2 %; Lymphocytes # (auto) 1.25 K/uL (1.20-3.40); Lymphocytes % (auto) 24.1 %; Mean Corpuscular Hemoglobin 32.4 pg (25.0-34.0); Mean Corpuscular Hgb Conc 33.5 g/dL (32.0-36.0); Mean Corpuscular Volume 96.6 fL (80.0-100.0); Mean Platelet Volume 10.4 fL (9.4-12.4); Monocytes # (auto) 0.78 K/uL (0.11-0.59); Neutrophils # (auto) 2.97 K/uL (1.40-6.50); Neutrophils % (auto) 57.2 %; Platelet Count 264 K/uL (130-400); RDW Coefficient of Variation 15.5 % (11.5-14.5); RDW Standard Deviation 54.4 fL (36.4-46.3); Red Blood Count 3.52 M/uL (4.20-5.40); White Blood Count 5.19 K/ul (4.8-10.8)
[2023-10-18 07:45] LABS: BUN Creatinine Ratio 19.3 (10-20); Calcium 8.6 mg/dl (8.6-10.3); Creatinine Clr Calc Pharmacy 42.4 ml/min; Est GFR (African American) 70.9 ml/min; Est GFR (Non-African American) 61.2 ml/min
[2023-10-18] MEDS: CARBIDOPA/LEVODOPA 25/100MG TAB PO SCH (07:57)
[2023-10-18] MEDS: ESCITALOPRAM OXALATE 10 MG TAB PO SCH (07:59)
[2023-10-18] MEDS: PRAVASTATIN SOD 40 MG TAB PO SCH (07:59)
[2023-10-18] MEDS: ASPIRIN 81 MG ECTAB PO SCH (07:59)
[2023-10-18] MEDS: SENNA 8.6 MG TAB PO SCH (08:00)
[2023-10-18] MEDS: MULTIVITAMIN TAB PO SCH (08:00)
[2023-10-18] MEDS ORDERED: ANASTROZOLE 1 MG TAB PO SCH (09:00)
--- NOTE | 2023-10-18 09:44 | Neurology Consultation ---
Date of Consultation October 18, 2023 Assessment & Plan (1) Vision changes: Patient presents with episodes of vision changes and slurred speech, could potentially be attributed to a migraine variant vs residual effects from her prior strokes. We discussed that she is on maximal medical therapy for her risk factors. There is nothing further to add. Provided reassurance that her MRI was unremarkable. We will sign off, please contact us with any further questions. Telehealth Consultation Telehealth Information Telehealth Information: I performed this visit using a real-time telehealth connection between my lo cation and the patients location ([facility]). After connecting through interactive tele-video, patient was identified by name and date of and/or wristband check.Patient (or authorized healthcare tour sales representative) was informed that this was a telemedicine visit and it was being conducted confidentially over secure lines. My office door was closed and no one else was present in the room with me.Patient (or authorized healthcare tour sales representative) provided consent to proceed with the visit, expressed an understanding of privacy and security of the telemedicine visit, and gave permission to have a hospital tour sales representative in the room in order to assist with the visit and to conduct portions of the visit, as needed. I informed the patient (or authorized healthcare tour sales representative) that I reviewed their record and presented the opportunity for them to ask any questions regarding the visit today. The patient agreed to participate. History of Present Illness Reason for Consultation: angelica Requesting Physician: Dr. Valencia Attending Physician: Alka Valencia MD History of Present Illness Sofya Perez is an 83 yo F with a history of both ischemic and hemorrhagic stroke on eliquis+aspirin. The patient reports having multiple episodes of visual changes and intermittent slurred speech over the past few days. She continues to take her aspirin and eliquis but was concerned for another stroke and presented to [facility]. Patient otherwise has not had any of these episodes since admission. Occasionally she will have headaches but it is not consistent. No loss of consciousness or confusion noted. Allergies Allergy/AdvReac Type Severity Reaction Status Date / Time ezetimibe AdvReac Intermediate Weakness Verified 10/17/23 20:06 chlorpheniramine AdvReac Mild "Antsy Verified 10/17/23 20:06 [From Chlor-Trimeton] Feeling" Home Medications Medication Instructions Recorded Confirmed Type calcium carbonate 600 mg-vitamin 1 tab PO DAILY 04/23/19 10/17/23 History D3 5 mcg (200 unit) tablet multivitamin 1 tab PO DAILY 04/23/19 10/17/23 History anastrozole 1 mg tablet (Arimidex) 1 mg PO DAILY 11/04/20 10/17/23 History alendronate 70 mg tablet (Fosamax) 70 mg PO FR@0900 04/05/22 10/17/23 History spironolactone 25 mg tablet 12.5 mg PO SUMOWETHSA@0900 05/18/22 10/17/23 History aspirin 81 mg tablet,delayed 81 mg PO DAILY 09/12/22 10/17/23 History release digoxin 125 mcg (0.125 mg) tablet 125 mcg PO MOWEFR@0900 12/20/22 10/17/23 History melatonin 3 mg tablet 3 mg PO HS PRN Insomnia 12/20/22 10/17/23 History sennosides 8.6 mg tablet (Senokot) 8.6 mg PO BID 12/20/22 10/17/23 History pravastatin 80 mg tablet 80 mg PO DAILY 05/18/23 10/17/23 History carbidopa 25 mg-levodopa 100 mg 0.5 tab PO Q8 08/18/23 10/17/23 History tablet furosemide 40 mg tablet 40 mg PO 4XWK 08/18/23 10/17/23 History apixaban 5 mg tablet (Eliquis) 5 mg PO Q12 10/17/23 10/17/23 History cholecalciferol (vitamin D3) 50 2,000 unit PO DAILY 10/17/23 10/17/23 History mcg (2,000 unit) capsule escitalopram oxalate 5 mg tablet 5 mg PO QAM 10/17/23 10/17/23 History furosemide 40 mg tablet 60 mg PO 3XWK 10/17/23 10/17/23 History midodrine 5 mg tablet 5 mg PO TIDM 10/17/23 10/17/23 History spironolactone 25 mg tablet 12.5 mg PO DAILY 10/17/23 10/17/23 History Patient History Medical History Combined systolic and diastolic heart failure Breast cancer, right 03/09/2020 Follicular lymphoma grade 3a Atrial fibrillation Neuroendocrine carcinoma of pancreas CVA (cerebral vascular accident) Cardiomyopathy Ventricular ectopy TIA (transient ischemic attack) 2009 - No Deficits Arthritis Follicular lymphoma Diagnosed 01/28/19 - Left Parotid Gland Surgical History S/P lumpectomy, right breast With SLN biopsy Dr. Matthew on 04/22/2020 Post-splenectomy History of superficial parotidectomy 01/28/19 - with facial nerve dissection and preservation History of tonsillectomy as a child History of colonoscopy 2018 History of hip replacement, total Left - 2007, Right - 2008 Family History Father , Passed age 88 of Kidney Cancer No problems noted. Mother , Passed age 83 of Alzheimers Disease No problems noted. Brother No problems noted. Sister ALL (acute lymphoblastic leukemia), Onset Age: 66 Now in remission Daughter No problems noted. Son No problems noted. 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 Oriented to person, place, and time. Fluent. Comprehension intact. Affect appropriate. Cranial Nerves: II: Reads NIHSS cards, pupils 3/3 to 2/2 III/IV/: Versions intact without nystagmus, no gaze preference. V: Facial sensation symmetric to light touch VII: Facial expression symmetric VIII: Hearing intact to voice IX/X: Palate elevates symmetrically XI: Shoulder shrug symmetric XII: Tongue midline Motor: Strength was symmetric and antigravity throughout. Pronator drift was absent. There were no abnormal movements. Reflexes: Unable to assess over telemedicine Results & Data Vital Signs (Past 12 Hours) Vital Signs Temp Pulse Pulse Resp BP Pulse Ox Pulse Ox 10/18/23 07:38 66 10/18/23 07:38 36.6 C 76 14 137/90 96 10/18/23 04:10 36.5 C 82 18 129/83 94 10/18/23 01:03 94 10/18/23 00:00 36.7 C 89 16 125/84 94 10/17/23 22:55 85 10/17/23 22:03 76 17 117/87 95 O2 Del Method O2 Del Method 10/18/23 07:38 10/18/23 07:38 Room Air 10/18/23 04:10 Room Air 10/18/23 01:03 Room Air 10/18/23 00:00 Room Air 10/17/23 22:55 10/17/23 22:03 Room Air Laboratory Results Abnormal lab results 10/17/23 10/17/23 10/17/23 Range/Units 18:56 19:01 19:03 RBC 3.80 L (4.20-5.40) M/uL Hgb (12.0-16.0) g/dl Hct 36.5 L (37.0-47.0) % RDW Std Deviation 51.9 H (36.4-46.3) fL RDW Coeff of Pablo 14.9 H (11.5-14.5) % Lymph # (Auto) 0.82 L (1.20-3.40) K/uL Quay # (Auto) (0.11-0.59) K/uL POC Chloride 98 L (101-112) mmol/L Carbon Dioxide (21-32) mmol/L POC Anion Gap 15.0 L (16-25) mmol/L BUN/Creatinine Ratio 22.5 H (10-20) Glucose 156 H (70-99(Fasting)) mg/dl POC Glucose 148 H (70-99) mg/dl POC Glucose (other) 150 H (70-99) mg/dl POC Ioniz Calcium Chiquis 1.11 L (1.12-1.32) mmol/l Urine pH (4.5-7.5) Ur Specific [place] (1.000-1.030) Digoxin 0.6 L (0.8-2.0) ng/ml 10/17/23 10/18/23 Range/Units 20:34 06:56 RBC 3.52 L (4.20-5.40) M/uL Hgb 11.4 L (12.0-16.0) g/dl Hct 34.0 L (37.0-47.0) % RDW Std Deviation 54.4 H (36.4-46.3) fL RDW Coeff of Pablo 15.5 H (11.5-14.5) % Lymph # (Auto) (1.20-3.40) K/uL Quay # (Auto) 0.78 H (0.11-0.59) K/uL POC Chloride (101-112) mmol/L Carbon Dioxide 33 H (21-32) mmol/L POC Anion Gap (16-25) mmol/L BUN/Creatinine Ratio (10-20) Glucose (70-99(Fasting)) mg/dl POC Glucose (70-99) mg/dl POC Glucose (other) (70-99) mg/dl POC Ioniz Calcium Chiquis (1.12-1.32) mmol/l Urine pH 8.0 H (4.5-7.5) Ur Specific [place] > 1.045 H (1.000-1.030) Digoxin (0.8-2.0) ng/ml Diagnostic Findings MRI brain - Unremarkable/unchanged CTA - Unchanged
--- NOTE | 2023-10-18 14:06 | Hospitalist Progress Note ---
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 on Eliquis Presented with dysarthria and visual changes Appreciate neurology input and recommendation-no change in her current medications Dysarthria seems to be improving No other neurodeficit on examination Will get PT and OT evaluation prior to discharge Continue aspirin and Eliquis Hypotension on midodrine Blood pressure remains on the lower side at 105/75 Hyperlipidemia/statin intolerance Pulmonary hypertension Nocturnal hypoxemia/mild MARGARET on nighttime O2 Other significant medical conditions are stable and as below: Right breast cancer status post chemoradiation supposedly off anastrozole Rx due to clot concerns following recent confinement for stroke, anastrozole currently active medication on patient's home list NHL status post radiation Pancreatic neuroendocrine tumor status post surgery Prediabetes, hemoglobin A1c of 6 last July 2023 (2) Vision changes: Plan: Could be secondary to migraine variant/residual effect from her prior stroke (3) Combined systolic and diastolic heart failure: Plan: Chronic diastolic HF (EF 55%, TTE 2023), patient euvolemic to dry History of diastolic heart failure No evidence of fluid overload (4) Generalized weakness: Plan: Has generalized weakness with ambulatory dysfunction No focal neurodeficit or weakness Will get PT and OT evaluation prior to discharge (5) Chronic a-fib: Plan: Rate is controlled Has been on Eliquis and will continue (6) CVA (cerebral vascular accident): Plan: History of CVA No new stroke on MRI Will continue current antiplatelet and Plan DVT prophylaxis. Eliquis DNR as per patient's prior directives. Admission and Anticipated Discharge Date Admission Date: October 17, 2023 Subjective 10/18/2023 The patient was seen and examined in medical telemetry unit She was admitted with dysarthria which seems to be improved a bit Denies any other neurological symptoms Was seen by neurologist and no change in medications were made She wants to to be discharged Will need to have PT and OT evaluation prior to discharge Review of Systems Review of Systems: All systems reviewed and are unremarkable except as noted below Physical Exam Physical Exam: Sitting on a chair without any acute distress Constitutional: + ill appearing and average body habitus Eyes: PERRL, conjunctivae normal, anicteric sclerae ENMT: external ear and nose normal, oropharynx normal Neck: trachea midline, no thyromegaly Respiratory: no respiratory distress Auscultation: lungs clear to auscultation bilaterally; no crackles Cardiovascular: Rate/Rhythm: regular rate and regular rhythm; not tachycardic Heart Sounds: normal S1 and normal S2; no murmur Extremities: no edema Gastrointestinal (Abdomen): Inspection/Auscultation: normal bowel sounds; abdomen not distended Percussion/Palpation: abdomen soft; abdomen nontender Musculoskeletal: No acute arthritis involving any of the joint Neurologic: normal touch/pain/proprioception and moves all extremities; no focal motor deficits Speech / Cognition: normal speech (Minimal dysarthria) Psychiatric: A+Ox3, euthymic affect Lymphatic: no cervical or axillary lymphadenopathy Results & Data Results & Data Vital Signs (Past 12 Hours) Vital Signs Temp Pulse Pulse Resp BP Pulse Ox O2 Del Method 10/18/23 11:13 36.6 C 74 15 105/75 97 Room Air 10/18/23 07:38 66 10/18/23 07:38 36.6 C 76 14 137/90 96 Room Air 10/18/23 04:10 36.5 C 82 18 129/83 94 Room Air Laboratory Results Short CBC 10/17/23 10/18/23 Range/Units 19:01 06:56 WBC 6.33 5.19 (4.8-10.8) K/ul Hgb 12.3 11.4 L (12.0-16.0) g/dl Hct 36.5 L 34.0 L (37.0-47.0) % Plt Count 278 264 (130-400) K/uL BMP 10/17/23 10/17/23 10/18/23 19:01 20:55 06:56 Sodium 136 139 Potassium TNP 4.2 4.0 Chloride 99 101 Carbon Dioxide 30 33 H BUN 18 17 Creatinine 0.80 0.88 Glucose 156 H 85 Calcium 9.0 8.6 Liver Function 10/17/23 10/17/23 Range/Units 19:01 20:55 Total Bilirubin 0.8 (0.2-1.0) mg/dl AST TNP 20 ALT 7 (7-52) U/L Alkaline Phosphatase 40 (34-104) U/L Albumin 3.5 (3.4-5.0) gm/dl Urine 10/17/23 Range/Units 20:34 Urine Color Yellow Urine Appearance Clear (Clear) Urine pH 8.0 H (4.5-7.5) Ur Specific [place] > 1.045 H (1.000-1.030) Urine Protein Negative (Negative) Urine Glucose (UA) Negative (Negative) Medications Administered Current Inpatient Medications Acetaminophen (Acetaminophen 325 Mg Tab) 650 mg PO QID PRN PRN Reason: pain/fever Stop: 11/16/23 23:30 Anastrozole (Anastrozole 1 Mg Tab) 1 mg PO DAILY [facility] Stop: 11/17/23 08:59 Apixaban (Apixaban 5 Mg Tablet) 5 mg PO Q12 [facility] Stop: 11/17/23 01:02 Last Admin: 10/18/23 11:04 Dose: 5 mg Aspirin (Aspirin 81 Mg Ectab) 81 mg PO DAILY [facility] Stop: 11/17/23 08:59 Last Admin: 10/18/23 07:59 Dose: 81 mg Carbidopa/Levodopa (Carbidopa/Levodopa 25/100mg Tab) 0.5 tab PO Q8@0800,1200,2100 [facility] Stop: 11/17/23 07:59 Last Admin: 10/18/23 11:04 Dose: 0.5 tab Digoxin (Digoxin 0.125 Mg Tab) 0.125 mg PO MoWeFr@1600 [facility] Stop: 11/17/23 15:59 Escitalopram Oxalate (Escitalopram Oxalate 10 Mg Tab) 5 mg PO QAM [facility] Stop: 11/17/23 08:59 Last Admin: 10/18/23 07:59 Dose: 5 mg Promethazine HCl 6.25 mg/ (Sodium Chloride) 50.25 mls @ 201 mls/hr IV Q6H PRN PRN Reason: Nausea And Vomiting Stop: 11/16/23 23:30 Melatonin (Melatonin 3 Mg Tab) 3 mg PO HS PRN PRN Reason: Insomnia Stop: 11/17/23 01:02 Midodrine (Midodrine Hcl 2.5 Mg Tab) 5 mg PO TIDM [facility] Stop: 11/17/23 01:02 Last Admin: 10/18/23 11:08 Dose: 5 mg Multivitamins (Multivitamin Tab) 1 tab PO DAILY [facility] Stop: 11/17/23 08:59 Last Admin: 10/18/23 08:00 Dose: 1 tab Oxycodone HCl (Oxycodone Hcl Ir 5 Mg Tab (Immediate Release)) 5 mg PO Q4H PRN PRN Reason: Pain Stop: 10/31/23 23:30 Pravastatin Sodium (Pravastatin Sod 40 Mg Tab) 80 mg PO DAILY [facility] Stop: 11/17/23 08:59 Last Admin: 10/18/23 07:59 Dose: 80 mg Sennosides (Senna 8.6 Mg Tab) 8.6 mg PO BID [facility] Stop: 11/17/23 08:59 Last Admin: 10/18/23 08:00 Dose: 8.6 mg
--- NOTE | 2023-10-18 16:22 | Electrocardiogram Report ---
Test Reason : Blood Pressure : / mmHG Vent. Rate : 088 BPM Atrial Rate : 000 BPM P-R Int : 000 ms QRS Dur : 080 ms QT Int : 318 ms P-R-T Axes : 000 -27 -66 degrees QTc Int : 384 ms Atrial fibrillation with premature ventricular or aberrantly conducted complexes Inferior infarct , age undetermined Abnormal ECG When compared with ECG of 24-AUG-2023 19:58, Inferior infarct is now Present T wave inversion now evident in Lateral leads Confirmed by Jose Perkins [id number]) on 10/18/2023 4:21:24 PM [facility] Confirmed By:Jose Perkins
[2023-10-18] MEDS: DIGOXIN 0.125 MG TAB PO SCH (16:33)
[2023-10-19 08:19] LABS: Basophils # (auto) 0.03 K/uL (0.00-0.20); Basophils % (auto) 0.5 %; Eosinophils # (auto) 0.17 K/uL (0.00-0.50); Eosinophils % (auto) 2.6 %; Hematocrit (blood only) 36.9 % (37.0-47.0); Hemoglobin 12.3 g/dl (12.0-16.0); Immature Granulocytes # (auto) 0.02 K/uL (0.01-0.20); Immature Granulocytes % (auto) 0.3 %; Lymphocytes % (auto) 23.3 %; Mean Corpuscular Hemoglobin 31.9 pg (25.0-34.0); Mean Corpuscular Hgb Conc 33.3 g/dL (32.0-36.0); Mean Corpuscular Volume 95.6 fL (80.0-100.0); Mean Platelet Volume 10.5 fL (9.4-12.4); Monocytes # (auto) 0.64 K/uL (0.11-0.59); Monocytes % (auto) 9.9 %; Neutrophils # (auto) 4.08 K/uL (1.40-6.50); Neutrophils % (auto) 63.4 %; Platelet Count 256 K/uL (130-400); RDW Coefficient of Variation 15.2 % (11.5-14.5); RDW Standard Deviation 53.7 fL (36.4-46.3); Red Blood Count 3.86 M/uL (4.20-5.40); White Blood Count 6.44 K/ul (4.8-10.8)
[2023-10-19 08:27] LABS: Calcium 8.8 mg/dl (8.6-10.3); Creatinine Clr Calc Pharmacy 51.7 ml/min; Est GFR (African American) 90.4 ml/min
[2023-10-19 12:02] VITALS: BP 105/73; RESP 16; TEMP 98.8; O2SAT 93
--- NOTE | 2023-10-19 12:35 | Hospitalist Progress Note ---
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 on Eliquis Presented with dysarthria and visual changes Appreciate neurology input and recommendation-no change in her current medications Dysarthria seems to be improving No other neurodeficit on examination Will get PT and OT evaluation prior to discharge Continue aspirin and Eliquis Dysarthria has been improving and does not have any new neurological symptoms She will be discharged to [facility] this afternoon Hypotension on midodrine Blood pressure remains on the lower side at 105/75 Blood pressure remains stable on the lower side Hyperlipidemia/statin intolerance Pulmonary hypertension Nocturnal hypoxemia/mild MARGARET on nighttime O2 Other significant medical conditions are stable and as below: Right breast cancer status post chemoradiation supposedly off anastrozole Rx due to clot concerns following recent confinement for stroke, anastrozole currently active medication on patient's home list NHL status post radiation Pancreatic neuroendocrine tumor status post surgery Prediabetes, hemoglobin A1c of 6 last July 2023 (2) Vision changes: Plan: Could be secondary to migraine variant/residual effect from her prior stroke (3) Combined systolic and diastolic heart failure: Plan: Chronic diastolic HF (EF 55%, TTE 2023), patient euvolemic to dry History of diastolic heart failure No evidence of fluid overload (4) Generalized weakness: Plan: Has generalized weakness with ambulatory dysfunction No focal neurodeficit or weakness Will get PT and OT evaluation prior to discharge Will continue PT and OT at the facility (5) Chronic a-fib: Plan: Rate is controlled Has been on Eliquis and will continue (6) CVA (cerebral vascular accident): Plan: History of CVA No new stroke on MRI Will continue current antiplatelet and Plan DVT prophylaxis. Eliquis DNR as per patient's prior directives. Admission and Anticipated Discharge Date Admission Date: October 17, 2023 Subjective 10/18/2023 The patient was seen and examined in medical telemetry unit She was admitted with dysarthria which seems to be improved a bit Denies any other neurological symptoms Was seen by neurologist and no change in medications were made She wants to to be discharged Will need to have PT and OT evaluation prior to discharge 10/19/2023 The patient was seen and examined in medical telemetry unit She has been stable Denies any new neurological symptoms Her dysarthria has been improving She will be discharged this afternoon Review of Systems Review of Systems: All systems reviewed and are unremarkable except as noted below Physical Exam Physical Exam: Lying in bed without any acute distress Constitutional: average body habitus; not ill appearing Eyes: PERRL, conjunctivae normal, anicteric sclerae ENMT: external ear and nose normal, oropharynx normal Neck: trachea midline, no thyromegaly Respiratory: no respiratory distress Auscultation: lungs clear to auscultation bilaterally; no crackles Cardiovascular: Rate/Rhythm: regular rate and regular rhythm; not tachycardic Heart Sounds: normal S1 and normal S2; no murmur Extremities: no edema Gastrointestinal (Abdomen): Inspection/Auscultation: normal bowel sounds; abdomen not distended Percussion/Palpation: abdomen soft; abdomen nontender Musculoskeletal: No acute arthritis involving any of the joints Neurologic: normal touch/pain/proprioception and moves all extremities; no focal motor deficits Speech / Cognition: normal speech (Minimal dysarthria) Psychiatric: A+Ox3, euthymic affect Lymphatic: no cervical or axillary lymphadenopathy Results & Data Results & Data Vital Signs (Past 12 Hours) Vital Signs Temp Pulse Pulse Resp BP Pulse Ox O2 Del Method 10/19/23 12:01 37.1 C 73 16 105/73 93 Room Air 10/19/23 09:04 75 10/19/23 07:40 36.5 C 62 18 139/97 99 Room Air 10/19/23 02:36 36.4 C L 86 16 123/86 97 Room Air Laboratory Results Short CBC 10/19/23 Range/Units 07:39 WBC 6.44 (4.8-10.8) K/ul Hgb 12.3 (12.0-16.0) g/dl Hct 36.9 L (37.0-47.0) % Plt Count 256 (130-400) K/uL BMP 10/19/23 07:39 Sodium 137 Potassium 4.0 Chloride 99 Carbon Dioxide 31 BUN 18 Creatinine 0.72 Glucose 92 Calcium 8.8 Medications Administered Current Inpatient Medications Acetaminophen (Acetaminophen 325 Mg Tab) 650 mg PO QID PRN PRN Reason: pain/fever Stop: 11/16/23 23:30 Anastrozole (Anastrozole 1 Mg Tab) 1 mg PO DAILY [facility] Stop: 11/17/23 08:59 Apixaban (Apixaban 5 Mg Tablet) 5 mg PO Q12 [facility] Stop: 11/17/23 01:02 Last Admin: 10/19/23 07:58 Dose: 5 mg Aspirin (Aspirin 81 Mg Ectab) 81 mg PO DAILY [facility] Stop: 11/17/23 08:59 Last Admin: 10/19/23 07:58 Dose: 81 mg Carbidopa/Levodopa (Carbidopa/Levodopa 25/100mg Tab) 0.5 tab PO Q8@0800,1200,2100 [facility] Stop: 11/17/23 07:59 Last Admin: 10/19/23 11:27 Dose: 0.5 tab Digoxin (Digoxin 0.125 Mg Tab) 0.125 mg PO MoWeFr@1600 [facility] Stop: 11/17/23 15:59 Last Admin: 10/18/23 16:33 Dose: 0.125 mg Escitalopram Oxalate (Escitalopram Oxalate 10 Mg Tab) 5 mg PO QAM [facility] Stop: 11/17/23 08:59 Last Admin: 10/19/23 07:58 Dose: 5 mg Promethazine HCl 6.25 mg/ (Sodium Chloride) 50.25 mls @ 201 mls/hr IV Q6H PRN PRN Reason: Nausea And Vomiting Stop: 11/16/23 23:30 Melatonin (Melatonin 3 Mg Tab) 3 mg PO HS PRN PRN Reason: Insomnia Stop: 11/17/23 01:02 Midodrine (Midodrine Hcl 2.5 Mg Tab) 5 mg PO TIDM [facility] Stop: 11/17/23 01:02 Last Admin: 10/19/23 11:26 Dose: 5 mg Multivitamins (Multivitamin Tab) 1 tab PO DAILY [facility] Stop: 11/17/23 08:59 Last Admin: 10/19/23 07:59 Dose: 1 tab Oxycodone HCl (Oxycodone Hcl Ir 5 Mg Tab (Immediate Release)) 5 mg PO Q4H PRN PRN Reason: Pain Stop: 10/31/23 23:30 Pravastatin Sodium (Pravastatin Sod 40 Mg Tab) 80 mg PO DAILY [facility] Stop: 11/17/23 08:59 Last Admin: 10/19/23 07:59 Dose: 80 mg Sennosides (Senna 8.6 Mg Tab) 8.6 mg PO BID [facility] Stop: 11/17/23 08:59 Last Admin: 10/19/23 07:59 Dose: 8.6 mg
[2023-10-19 12:56] VITALS: PULSE 69
--- NOTE | 2023-10-19 16:48 | Discharge Summary ---
Date of Service October 19, 2023 Admission HPI Per Admitting Provider History obtained from patient and records Patient is a fair historian. Medical history significant for chronic diastolic HF (EF 55%, TTE 2023), PE status post IVC filter placement/A. fib on Eliquis, possible cardiac thrombus, hx ICH status post Kcentra, hx embolic CVA, PVD, valvular heart disease (mild MR, moderate to severe TR), hypertension, hypotension on midodrine, hyperlipidemia/statin intolerance, pulmonary hypertension, nocturnal hypoxemia/mild MARGARET on nighttime O2, history of tremors, right breast cancer status post chemoradiation on anastrozole Rx, NHL status post radiation, pancreatic neuroendocrine tumor status post surgery, prediabetes, ambulatory dysfunction. Last [facility] confinement August 23 to 2023 for acute CVA likely cardioembolic due to possible RA thrombus on TTE. Patient transferred to [facility] for further evaluation and was admitted until September 01, 2023. Workup showed PE DVT. IVC filter placed Eliquis restarted. Patient anastrozole discontinued due to increased risk of thrombosis. Hospital course complicated by periods of delirium. Yesterday, patient noted right-sided weakness/numbness along with visual halos. No headache, no chest pain, no SOB. Patient symptoms currently resolved. 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 Exam Per Admitting Provider Physical Exam: GENERAL: Slightly uncomfortable, slightly hard of hearing, frail, no respiratory distress SKIN: Normal color, warm HEENT: pink palpebral conjunctivae, no ptosis, lower lip tremors noted, dry buccal mucosa NECK : Supple, no tenderness CHEST : Decreased breath sounds, no tenderness HEART : Irregular, systolic murmur ABDOMEN: Some distention, nontender EXTREMITIES : Minimal LE swelling, no LE tenderness, no other conspicuous deformities noted NEUROLOGIC : Coherent, oriented to place, no facial asymmetry, intentional tremors noted; MMTS BUE 4/5, BLE 3/5; gait and stance not assessed Principal Diagnosis TIA, no new stroke, hypotension, combined systolic and diastolic heart failure, generalized weakness Discharge Exam Lying in bed without any acute distress Constitutional average body habitus; not ill appearing Eyes PERRL, conjunctivae normal, anicteric sclerae ENMT external ear and nose normal, oropharynx normal Neck trachea midline, no thyromegaly Respiratory no respiratory distress Auscultation: lungs clear to auscultation bilaterally; no crackles Cardiovascular Rate/Rhythm: regular rate and regular rhythm; not tachycardic Heart Sounds: normal S1 and normal S2; no murmur Extremities: no edema Gastrointestinal (Abdomen) Inspection/Auscultation: normal bowel sounds; abdomen not distended Percussion/Palpation: abdomen soft; abdomen nontender Neurologic normal touch/pain/proprioception and moves all extremities; no focal motor deficits Speech / Cognition: normal speech (Minimal dysarthria) Psychiatric A+Ox3, euthymic affect Lymphatic no cervical or axillary lymphadenopathy Discharge Data Allergies Allergy/AdvReac Type Severity Reaction Status Date / Time ezetimibe AdvReac Intermediate Weakness Verified 10/17/23 20:06 chlorpheniramine AdvReac Mild "Antsy Verified 10/17/23 20:06 [From Chlor-Trimeton] Feeling" Consultations 10/17/23 21:11 ED Decision to Admit Stat 10/18/23 05:23 Consult Neurology Routine Ordered Studies 10/17/23 18:59 CT angio head w con Stat CT angio neck with con Stat CT head/brain wo con Stat 10/18/23 02:06 MR brain wo con Stat Hospital Course (1) TIA (transient ischemic attack): 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 on Eliquis Presented with dysarthria and visual changes Appreciate neurology input and recommendation-no change in her current medications Dysarthria seems to be improving No other neurodeficit on examination Will get PT and OT evaluation prior to discharge Continue aspirin and Eliquis Dysarthria has been improving and does not have any new neurological symptoms She will be discharged to [facility] this afternoon Hypotension on midodrine Blood pressure remains on the lower side at 105/75 Blood pressure remains stable on the lower side Hyperlipidemia/statin intolerance Pulmonary hypertension Nocturnal hypoxemia/mild MARGARET on nighttime O2 Other significant medical conditions are stable and as below: Right breast cancer status post chemoradiation supposedly off anastrozole Rx due to clot concerns following recent confinement for stroke, anastrozole currently active medication on patient's home list NHL status post radiation Pancreatic neuroendocrine tumor status post surgery Prediabetes, hemoglobin A1c of 6 last July 2023 (2) Vision changes: Could be secondary to migraine variant/residual effect from her prior stroke (3) Combined systolic and diastolic heart failure: Chronic diastolic HF (EF 55%, TTE 2023), patient euvolemic to dry History of diastolic heart failure No evidence of fluid overload (4) Generalized weakness: Has generalized weakness with ambulatory dysfunction No focal neurodeficit or weakness Will get PT and OT evaluation prior to discharge Will continue PT and OT at the facility (5) Chronic a-fib: Rate is controlled Has been on Eliquis and will continue (6) CVA (cerebral vascular accident): History of CVA No new stroke on MRI Will continue current antiplatelet and Plan DVT prophylaxis. Eliquis DNR as per patient's prior directives. Total Time Total Time Spent Total Time Spent (In Minutes): 35 minutes Discharge Plan Discharge Items Patient Disposition: Transfer [facility] Fac Reason For Visit: TIA Discharge Diagnosis: TIA, no new stroke, hypotension, combined systolic and diastolic heart failure, generalized weakness Condition on Discharge: Fair Activity: As commented below Activity Comment: Will need assistance in ADLs and continue PT and OT Non-emergency contact: Primary Care Provider Call non-emergency contact if: you have any medication questions and your symptoms worsen Follow-up/Referrals: Anastasia Reza DO [Primary Care Provider] - (Date & Time 10/25/2023 1:40 PM Provider Anastasia Reza DO Department Family [facility] ) Diet: Regular Diet Texture: Dental soft (bite-sized) Addtl Attending Provider Instructions: Please take precautions to avoid falls No change in your current medications Continue PT OT and speech therapy Please give appointment with the healthcare providers Pending Studies at Discharge: No Stand-Alone Forms: My [facility] Skilled Items Patient informed of condition?: Yes DNR: Yes Discharge Level of Care: Skilled Communicable Disease: No Discharge Prognosis: Stable Lines: None Urinary Catheter: No Medications and DC Order Prescriptions: Continued anastrozole [Arimidex] 1 mg tablet 1 mg PO DAILY spironolactone 25 mg tablet 12.5 mg PO SUMOWETHSA@0900 Hold Instructions: Resume on 08/24/23. Continue to hold until oral intake improves and BP rebounds. Hold for concern for dehydration, poor oral intake or low BP Rx Instructions: take 1/2 tablet 5 days a week. 08/24/23 : THIS MED CURRENTLY ON HOLD. pravastatin 80 mg tablet 80 mg PO DAILY multivitamin Tablet 1 tab PO DAILY calcium carbonate-vitamin D3 600 mg(1,500mg) -200 unit Tablet 1 tab PO DAILY alendronate [Fosamax] 70 mg Tablet 70 mg PO FR@0900 aspirin 81 mg Tablet,Delayed Release (Dr/Ec) 81 mg PO DAILY digoxin 125 mcg (0.125 mg) tablet 125 mcg PO MOWEFR@0900 melatonin 3 mg Tablet 3 mg PO HS PRN (Reason: Insomnia) sennosides [Senokot] 8.6 mg tablet 8.6 mg PO BID furosemide 40 mg tablet 40 mg PO 4XWK Hold Instructions: Resume on 08/24/23. Continue to hold until oral intake improves and BP rebounds. Hold for concern for dehydration, poor oral intake or low BP Rx Instructions: sututhsa carbidopa-levodopa 25-100 mg tablet 0.5 tab PO Q8 Rx Instructions: morning,noon,bedtime furosemide 40 mg tablet 60 mg PO 3XWK Rx Instructions: mowefr midodrine 5 mg tablet 5 mg PO TIDM spironolactone 25 mg tablet 12.5 mg PO DAILY escitalopram oxalate 5 mg tablet 5 mg PO QAM cholecalciferol (vitamin D3) 50 mcg (2,000 unit) capsule 2,000 unit PO DAILY Eliquis 5 mg tablet 5 mg PO Q12 Discharge Orders: Discharge Order (Routine); Ordered 10/19/23 Ordered By: Alka Valencia Discharge Order- CHF (Routine); Ordered 10/19/23 Ordered By: Alka Valencia Admission Data Admit Date/Time: 10/17/23 23:30 Attending Provider: Alka Valencia Admit Provider: Joe Lai Primary Care Provider: Anastasia Reza Other Providers: Joe Lai; Jeanette Fraire; Saul Morrison; Jeanette Gallardo; Colton Vitale; Moi Elena; Johnny Morris; Cade Nolan; Cyn Wong; Jacques Hudson; Jimbo Hernandez; Kamila Escalante; Yonis Trejo; Gail Winn; Anamaria Loya; Cade Ramsay Other Interventions: Discharge Summary Assessment (RN) Last Done: 10/19/23 12:54
== END 2023-10-19 14:19 ==
LOC: ED 18:51 → 2N 18:51

== ENCOUNTER 2024-04-23 13:59 | Inpatient (IN) ==
--- NOTE | 2024-04-23 14:23 | Emergency Department Note ---
Impression & Plan Wound of sacral region, Wound infection, Chronic a-fib ED Provider Note Provider: Aamir Carlos MD CHIEF COMPLAINT: Sacral wound and pain HISTORY OF PRESENT ILLNESS: Patient is a 83-year-old female past medical history of CVA with some resultant left-sided deficits, heart failure, chronic A-fib on Eliquis presenting from [facility] today for evaluation of wound on her sacrum. Patient states developed over the past 2 weeks and is somewhat painful particular when touched. States she had several strokes this fall and does ambulate with assistance or with a walker. She ever states she sits quite a bit however and lays quite a bit. No history of wounds. Wound care visited today at the facility and recommend she come here for further evaluation. No fevers reported. Denies other abdominal or chest pain. Has not been on recent antibiotics. Denies confusion but is somewhat tangential with her history here. PAST MEDICAL HISTORY: As noted above MEDICATIONS: Reviewed medication list facility. SOCIAL HISTORY: Resides at [facility] PHYSICAL EXAM: GENERAL: alert and oriented in no acute distress on stretcher Head: normocephalic and atraumatic EYES: No injection, discharge or icterus. EOMI. NECK: Trachea midline. ENT: Mucous membranes pink and moist. LUNGS: Airway patent. No retractions. Breath sounds clear HEART: Regular irregular rate and rhythm. ABDOMEN: Soft and non-tender, without guarding or rebound. No hepatosplenomegaly or masses BACK: No midline tenderness, no SI joint tenderness. There is an approximately 3 x 2 cm black and purulent ulceration at the top of the gluteal cleft and the sacrum. There is some trace purulence with palpation but no crepitus. Trace surrounding erythema. The majority of the wound has some eschar. SKIN: Acyanotic, warm, dry, without rashes other than sacral wound as described above. EXTREMITIES: Without swelling, tenderness or deformity NEUROLOGICAL: Some limited strength on the left arm and leg appreciable. No aphasia. No facial droop or slurred speech. CONTINUOUS CARDIAC MONITORING: was ordered and showed a heart rate of 80s to 90s bpm in afib Patient's laboratory studies and imaging reviewed. Differential includes Foreign body, fracture, dislocation, joint compromise, infection, soft tissue injury, tendon injury, vascular compromise, compartment syndrome, as well as other pathologies. IMPRESSION/MEDICAL DECISION MAKING: Patient with appears to be an infected sacral decubitus ulcer. No history of diabetes. Patient is on Eliquis. No signs of active bleeding at this point but wound culture and there is a trace amount of tunneling at the edge. Will complete CT scan of the abdomen pelvis to exclude deeper extension. Basic blood work obtained here. No significant ketosis or anemia. Doubt sepsis. Lactate normal. No severe electrolyte abnormality or signs of renal dysfunction. Patient reports some chronic left-sided weakness he actually states is a bit better the last day or 2. CT scan of the abdomen pelvis questions a sacral wound with some subcutaneous emphysema concerning for cellulitis not excluding osteomyelitis. Will cover broadly with Zosyn and vancomycin although again she does not appear septic. Gram stain from wound culture with gram-positive and negative bacteria noted. Will bring in for further wound care and treatment here at the hospital. Patient agreeable with this plan although may be very slightly confused. Hospitalist team was contacted. DIAGNOSIS: Sacral decubitus ulcer with infection/cellulitis DISPOSITION: Hospitalist will evaluate Patient was agreeable with this plan. Past Med/Surg History Problem List Wound infection (Acute) Wound of sacral region (Acute) Vision changes Weakness (Acute) Internal carotid artery dissection (Acute) Acute CVA (cerebrovascular accident) (Acute) CVA (cerebral vascular accident) Hyperkalemia Ambulatory dysfunction (Acute) Head injury (Acute) Acute bilateral knee pain (Acute) Fall from standing (Acute) Combined systolic and diastolic heart failure Rhabdomyolysis (Acute) Fall (Acute) Chronic diastolic heart failure Weakness (Acute) Ambulatory dysfunction (Acute) Chronic a-fib (Acute) Generalized weakness (Acute) Elevated troponin (Acute) 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 Matthew on 04/22/2020 Breast cancer, right 03/09/2020 Medical History Follicular lymphoma grade 3a Atrial fibrillation Neuroendocrine carcinoma of pancreas CVA (cerebral vascular accident) Cardiomyopathy Ventricular ectopy TIA (transient ischemic attack) 2009 - No Deficits Arthritis Surgical History Post-splenectomy History of superficial parotidectomy 01/28/19 - with facial nerve dissection and preservation History of tonsillectomy as a child History of colonoscopy 2018 History of hip replacement, total Left - 2007, Right - 2008 Family History Father , Passed age 88 of Kidney Cancer No problems noted. Mother , Passed age 83 of Alzheimers Disease No problems noted. Brother No problems noted. Sister ALL (acute lymphoblastic leukemia), Onset Age: 66 Now in remission Daughter No problems noted. Son No problems noted. 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 Feels Safe at Home: Yes Childhood Exposure to Second-Hand Smoke: Yes (Father Smoked in Home ) caffeine: Yes (4 cups of coffee/day ) Dental Care, Regularly: Yes Assistive Devices: Glasses and Oxygen - at Night Allergies Allergies Allergy/AdvReac Type Severity Reaction Status Date / Time ezetimibe AdvReac Intermediate Weakness Verified 10/17/23 20:06 chlorpheniramine AdvReac Mild "Antsy Verified 10/17/23 20:06 [From Chlor-Trimeton] Feeling" Home Meds Home Medications Medication Instructions Recorded Confirmed calcium 600 mg (as 1 tab PO .LUNCH TIME 04/23/19 04/23/24 carbonate)-vitamin D3 5 mcg (200 unit) tablet multivitamin 1 tab PO DAILY 04/23/19 04/23/24 alendronate 70 mg tablet (Fosamax) 70 mg PO FR@0900 04/05/22 04/23/24 spironolactone 25 mg tablet 12.5 mg PO DAILY 05/18/22 04/23/24 aspirin 81 mg tablet,delayed 81 mg PO DAILY 09/12/22 04/23/24 release digoxin 125 mcg (0.125 mg) tablet 125 mcg PO MOWEFR@0900 12/20/22 04/23/24 melatonin 3 mg tablet 3 mg PO HS PRN Insomnia 12/20/22 04/23/24 sennosides 8.6 mg tablet (Senokot) 8.6 mg PO BID 12/20/22 04/23/24 pravastatin 80 mg tablet 80 mg PO DAILY 05/18/23 04/23/24 furosemide 40 mg tablet 40 mg PO 4XWK 08/18/23 04/23/24 apixaban 5 mg tablet (Eliquis) 5 mg PO Q12 10/17/23 04/23/24 cholecalciferol (vitamin D3) 50 2,000 unit PO DAILY 10/17/23 04/23/24 mcg (2,000 unit) capsule escitalopram oxalate 5 mg tablet 5 mg PO QAM 10/17/23 04/23/24 furosemide 40 mg tablet 60 mg PO 3XWK 10/17/23 04/23/24 midodrine 5 mg tablet 5 mg PO BID 10/17/23 04/23/24 Results & Data (ED) Vital Signs Vital Signs - 24 hr 04/23/24 14:15 04/23/24 14:19 04/23/24 14:20 Temperature 36.8 C Temperature Source Oral Pulse Rate 96 H 96 H 96 H Pulse Rhythm Regular Pulse Strength Normal Respiratory Rate 20 15 Respiratory Effort / Characteristics Non-Labored Spontaneous Respiratory Depth Normal Respiratory Pattern Regular Blood Pressure 116/86 116/86 Blood Pressure Mean 96 96 Blood Pressure Position Lying Pulse Oximetry 96 Oxygen Delivery Method Room Air Sepsis Recent Fever Within 48 Hours No Sepsis New/Unexplained Change in Mental Status No Sepsis Action Taken by Nursing Physician Notified 04/23/24 15:39 Temperature Temperature Source Pulse Rate 88 Pulse Rhythm Pulse Strength Respiratory Rate 19 Respiratory Effort / Characteristics Respiratory Depth Respiratory Pattern Blood Pressure 130/84 Blood Pressure Mean 99 Blood Pressure Position Pulse Oximetry 95 Oxygen Delivery Method Sepsis Recent Fever Within 48 Hours Sepsis New/Unexplained Change in Mental Status Sepsis Action Taken by Nursing Laboratory Data 04/23/24 14:31 04/23/24 14:31 Lab Results 04/23/24 04/23/24 Range/Units 14:31 14:40 WBC 6.63 (4.8-10.8) K/ul RBC 4.14 L (4.20-5.40) M/uL Hgb 13.2 (12.0-16.0) g/dl Hct 39.4 (37.0-47.0) % MCV 95.2 (80.0-100.0) fL MCH 31.9 (25.0-34.0) pg MCHC 33.5 (32.0-36.0) g/dL RDW Std Deviation 53.0 H (36.4-46.3) fL RDW Coeff of Pablo 15.1 H (11.5-14.5) % Plt Count 451 H (130-400) K/uL MPV 10.5 (9.4-12.4) fL Immature Gran % (Auto) 0.6 % Neut % (Auto) 77.9 % Lymph % (Auto) 11.8 % [place] % (Auto) 8.0 % Eos % (Auto) 1.2 % Baso % (Auto) 0.5 % Neut # (Auto) 5.17 (1.40-6.50) K/uL Lymph # (Auto) 0.78 L (1.20-3.40) K/uL [place] # (Auto) 0.53 (0.11-0.59) K/uL Eos # (Auto) 0.08 (0.00-0.50) K/uL Baso # (Auto) 0.03 (0.00-0.20) K/uL Immature Gran # (Auto) 0.04 (0.01-0.20) K/uL Sodium 139 (136-145) mmol/L Potassium 3.9 (3.5-5.1) mmol/L Chloride 95 L (98-107) mmol/L Carbon Dioxide 34 H (21-32) mmol/L Anion Gap 10 (3-11) BUN 21 (6-23) mg/dl Creatinine 0.87 (0.6-1.2) mg/dl Est Cr Clr Drug Dosing 44.7 ml/min eGFR 66.48 BUN/Creatinine Ratio 24.1 H (10-20) Glucose 91 (70-99(Fasting)) mg/dl Lactate 1.2 (0.4-2.0) mmol/L Calcium 9.2 (8.6-10.3) mg/dl Total Bilirubin 0.6 (0.2-1.0) mg/dl AST 30 (13-39) U/L ALT 32 (7-52) U/L Alkaline Phosphatase 58 (34-104) U/L Troponin I High Sens 9.3 (0-14) pg/ml Total Protein 7.7 (6.0-8.3) gm/dl Albumin 3.5 (3.4-5.0) gm/dl Globulin 4.2 H (2.5-4.0) gm/dl Albumin/Globulin Ratio 0.8 L (0.9-2) Procalcitonin 0.09 (0-0.5) ng/ml Digoxin 0.5 L (0.8-2.0) ng/ml SARS-CoV-2, RNA, NAAT NEGATIVE (NEGATIVE) Administered Medications Vancomycin HCl 1,250 mg/ (Sodium Chloride) 525 mls @ 200 mls/hr IV NOW ONE Stop: 04/23/24 17:56 Last Admin: 04/23/24 16:48 Dose: 200 mls/hr Documented By: RASHID Discontinued Medications Piperacillin Sod/Tazobactam Sod (Zosyn) 4.5 gm in 100 mls @ 200 mls/hr IV NOW ONE; Protocol Stop: 04/23/24 15:48 Last Infusion: 04/23/24 16:48 Dose: Infused Documented By: Admin: 04/23/24 15:37 Dose: 200 mls/hr Documented By: RASHID Ioversol (Optiray 320 100ml) 92 ml IV ONCE ONE Stop: 04/23/24 15:28 Last Admin: 04/23/24 15:28 Dose: 92 ml Documented By: [facility] Imaging Data Radiologist's Impression: Abdomen/Pelvis CT 04/23/24 14:18 CT abd pelvis IV con only CLINICAL HISTORY: sacral wound TECHNIQUE: Helical axial images of the abdomen and pelvis were obtained and displayed. Automated dose lowering techniques and/or adjustment according to patient size were utilized for this exam. This exam was performed with intravenous contrast. CT DOSE: 1052.05 mGy.cm COMPARISON: Comparison is made to CT abdomen pelvis 07/22/2022 FINDINGS: Lower chest: Bibasilar atelectasis versus scarring is seen. Liver: Hepatic cysts are seen. Gallbladder and biliary tree: No calcified gallstones. Normal caliber wall. No intra- or extrahepatic biliary ductal dilation. Pancreas: Unremarkable, no focal lesions. Spleen: Patient status post lobectomy. Adrenals: Unremarkable. Kidneys and ureters: Unremarkable. Bladder: Unremarkable. Reproductive organs: Unremarkable. Bowel: Diverticulosis is seen without diverticulitis. The appendix is normal. A hiatal hernia is seen. Lymph nodes Retroperitoneal: Unremarkable. Pelvic: Unremarkable. Mesenteric: Unremarkable. Peritoneum: Normal. Vessels: Atherosclerotic calcifications are seen. An IVC filter is seen. Abdominal wall: A sacral ulcer is seen with subcutaneous emphysema and skin thickening. No drainable fluid collection is seen. Bones: Degenerative changes in the visualized spine. Bilateral hip arthroplasties are seen. At the site of the wound, there is mild osteopenia in the coccyx. IMPRESSION: Mild osteopenia in the coccyx adjacent to a sacral wound with subcutaneous emphysema. Findings are concerning for cellulitis and possible osteomyelitis. ACT 112: Negative or not required by law. Electronically signed by: Yaakov Roman M.D. 04/23/2024 3:47 PM Discharge Plan Visit Data Chief Complaint: Wound Stated Complaint: WOUND ED Provider: Aamir Carlos Discharge Problem: Wound of sacral region, Wound infection, Chronic a-fib Patient Disposition: Being Evaluated by Hospitalist Forms Stand Alone Forms: My [facility] Prescriptions Prescriptions: No Action spironolactone 25 mg tablet 12.5 mg PO DAILY Hold Instructions: Resume on 09/04/23. Rx Instructions: take 1/2 tablet pravastatin 80 mg tablet 80 mg PO DAILY multivitamin Tablet 1 tab PO DAILY calcium carbonate-vitamin D3 600 mg(1,500mg) -200 unit Tablet 1 tab PO .LUNCH TIME Rx Instructions: harshal 500/vit d 400 alendronate [Fosamax] 70 mg Tablet 70 mg PO FR@0900 aspirin 81 mg Tablet,Delayed Release (Dr/Ec) 81 mg PO DAILY digoxin 125 mcg (0.125 mg) tablet 125 mcg PO MOWEFR@0900 melatonin 3 mg Tablet 3 mg PO HS PRN (Reason: Insomnia) sennosides [Senokot] 8.6 mg tablet 8.6 mg PO BID furosemide 40 mg tablet 40 mg PO 4XWK Hold Instructions: Resume on 08/28/23. Rx Instructions: sututhsa furosemide 40 mg tablet 60 mg PO 3XWK Rx Instructions: mowefr midodrine 5 mg tablet 5 mg PO BID escitalopram oxalate 5 mg tablet 5 mg PO QAM cholecalciferol (vitamin D3) 50 mcg (2,000 unit) capsule 2,000 unit PO DAILY Eliquis 5 mg tablet 5 mg PO Q12 Rx Instructions: for 3 months Referrals Referrals: Minesh Pruitt [Primary Care Provider] -
[2024-04-23 14:55] LABS: Basophils # (auto) 0.03 K/uL (0.00-0.20); Basophils % (auto) 0.5 %; Eosinophils # (auto) 0.08 K/uL (0.00-0.50); Eosinophils % (auto) 1.2 %; Hematocrit (blood only) 39.4 % (37.0-47.0); Hemoglobin 13.2 g/dl (12.0-16.0); Immature Granulocytes # (auto) 0.04 K/uL (0.01-0.20); Immature Granulocytes % (auto) 0.6 %; Lymphocytes # (auto) 0.78 K/uL (1.20-3.40); Lymphocytes % (auto) 11.8 %; Mean Corpuscular Hemoglobin 31.9 pg (25.0-34.0); Mean Corpuscular Hgb Conc 33.5 g/dL (32.0-36.0); Mean Corpuscular Volume 95.2 fL (80.0-100.0); Mean Platelet Volume 10.5 fL (9.4-12.4); Monocytes # (auto) 0.53 K/uL (0.11-0.59); Neutrophils # (auto) 5.17 K/uL (1.40-6.50); Neutrophils % (auto) 77.9 %; Platelet Count 451 K/uL (130-400); RDW Coefficient of Variation 15.1 % (11.5-14.5); Red Blood Count 4.14 M/uL (4.20-5.40); White Blood Count 6.63 K/ul (4.8-10.8)
[2024-04-23 15:12] LABS: Albumin Globulin Ratio 0.8 (0.9-2); Albumin Level 3.5 gm/dl (3.4-5.0); BUN Creatinine Ratio 24.1 (10-20); Bilirubin,Total 0.6 mg/dl (0.2-1.0); Calcium 9.2 mg/dl (8.6-10.3); Creatinine Clr Calc Pharmacy 44.7 ml/min; Globulin 4.2 gm/dl (2.5-4.0); Potassium 3.9 mmol/L (3.5-5.1); Total Protein 7.7 gm/dl (6.0-8.3)
[2024-04-23 15:18] LABS: Troponin I High Sensitivity 9.3 pg/ml (0-14)
[2024-04-23] MEDS ORDERED: VANCOMYCIN CONSULT ACTIVE PRN (15:19)
[2024-04-23] MEDS: OPTIRAY 320 100ml IV ONE (15:28)
[2024-04-23] MEDS: PIPERACILLIN/TAZOBACTAM 4.5 GM/100 ML BAG IV ONE (15:37)
--- NOTE | 2024-04-23 15:49 | CT Scan Report ---
CT abd pelvis IV con only CLINICAL HISTORY: sacral wound TECHNIQUE: Helical axial images of the abdomen and pelvis were obtained and displayed. Automated dose lowering techniques and/or adjustment according to patient size were utilized for this exam. This e xam was performed with intravenous contrast. CT DOSE: 1052.05 mGy.cm COMPARISON: Comparison is made to CT abdomen pelvis 07/22/2022 FINDINGS: Lower chest: Bibasilar atelectasis versus scarring is seen. Liver: Hepatic cysts are seen. Gallbladder and biliary tree: No calcified gallstones. Normal caliber wall. No intra- or extrahepatic biliary ductal dilation. Pancreas: Unremarkable, no focal lesions. Spleen: Patient status post lobectomy. Adrenals: Unremarkable. Kidneys and ureters: Unremarkable. Bladder: Unremarkable. Reproductive organs: Unremarkable. Bowel: Diverticulosis is seen without diverticulitis. The appendix is normal. A hiatal hernia is seen . Lymph nodes Retroperitoneal: Unremarkable. Pelvic: Unremarkable. Mesenteric: Unremarkable. Peritoneum: Normal. Vessels: Atherosclerotic calcifications are seen. An IVC filter is seen. Abdominal wall: A sacral ulcer is seen with subcutaneous emphysema and skin thickening. No drainable fluid collection is seen. Bones: Degenerative changes in the visualized spine. Bilateral hip arthroplasties are seen. At the si te of the wound, there is mild osteopenia in the coccyx. IMPRESSION: Mild osteopenia in the coccyx adjacent to a sacral wound with subcutaneous emphysema. Findings are co ncerning for cellulitis and possible osteomyelitis. ACT 112: Negative or not required by law. Electronically signed by: Yaakov Roman M.D. 04/23/2024 3:47 PM
--- OUTSIDE RECORDS SUMMARY | 2024-04-23 15:53 | External Medical Summary | Summary of Care ---
Author Name Unknown Organization [facility] Address [address] [place] [address] Phone [phone] Care Team Providers Care Yeast Cake Cutter Name Role Phone Cordell Ruiz DO Primary Care Provider [phone] Reason for Referral * Evaluate & Treat - Unlimited Visits (Within 3 days (urgent)) - Authorized Specialty Diagnoses / Procedures Referred By Pavel t Referred To Contact HOME CARE / Home Care Diagnoses Pressure injury of skin of sacral region, unspecified injury stage Cordell Ruiz DO [address] [place] [address] Phone: tel: fax: Referral ID Status Reason Start Date Expiration Date Visits Requested Visits Authorized [id number] Authorized Specialty Services Required 4 999 999 Question Answer Referral Priority Within 3 days (urgent) Where should this appointment be scheduled? Rebecca Comments Documentation of [id number] Encounter Addendum Patient Name: Sofya Perez I certify that this patient is under my care and that I, or a nurse practitioner or physician's billing and accounting staff assistant working with me, /had a [id number] encounter that meets the physician [id number] encounter requirements with this patient on: 04/16/24 The encounter with the patient was in whole, or in part, for the following medical condition, which is the primary reason for home health care (List medical condition): Wound care I certify that, based on my findings, the following services are medically necessary home health services: Nursing To provide the following care/treatments: (All hospitalists not following the patient after discharge should complete this section): tx sacral decubitus ulcer, use VNA wound protocol Primary Care Physician to follow home care plan of care after discharge: Cordell Ruiz My clinical findings support the need for the above services because: advance age, dec mobility, multiple comorbidities Further, I certify that my clinical findings support that this patient is homebound (i.e. Absences from home require considerable and taxing effort and are for medical reasons or spiritism services or infrequently or of short duration when for other reason) because: Ambulatory dysfunction Physician Signature: Date of Signature: Physician Printed Name: Cordell Ruiz DO Reason for Visit * Reason Comments Re-Check 3 mo check, sore on buttock, Encounter Details Date Type Department Care Team (Late st Contact Info) Description 04/16/2024 3:00 PM EST Office Visit Family [facility] [address] [facility] [place] [address] Cordell Ruiz DO [address] [facility] [place] [address] Pressure injury of skin of sacral region, unspecified injury stage*; Chronic kidney disease, stage 3b (HCC); Permanent atrial fibrillation (HCC); HTN, goal below 130/80 Allergies Active Allergy Reactions Criticality Noted Date Comments Chlorpheniramine 07/22/2016 Anxious Chlor Trimeton Ezetimibe High 04/05/2022 Other reaction(s): Weakness documented as of this encounter (statuses as of 04/16/2024) Medications Calcium Carb-Cholecalcifer ol 600-200 MG-UNIT Oral Tablet [...] once a day on Monday only. (0700) 07/09/19 22 Active Aspirin EC 81 MG Oral Tablet Delayed Release Take 1 Tablet by mouth in the morning. 31 Tablet 5 04/21/20 22 Active Melatonin 3 MG Oral Tablet Take 1 Tablet by mouth at bedtime as needed for Sleep. Active Docusate Sodium 100 MG Oral Capsule (Colace) Take 1 Capsule by mouth 2 times a day. () Active D3 2000 50 MCG (2000 UT) Oral Capsule (Cholecalciferol) Take 1 Capsule by mouth in the morning. (0800). Active Midodrine HCl 5 MG Oral Tablet (Proamatine)Indica tions:Orthostatic hypotension Take 1 Tablet by mouth in the morning and 1 Tablet before bedtime. 60 Tablet 5 11/22/19 24 Active Spironolactone 25 MG Oral Tablet (Aldactone)Indicat ions:Persistent atrial fibrillation (HCC),HTN, goal below 130/80,Heart failure, diastolic, with acute decompensation (HCC),HFrEF (heart failure with reduced ejection fraction) (HCC) Take 0.5 Tablets by mouth in the morning. 45 Tablet 3 12/05/19 24 Active Escitalopram Oxalate 5 MG Oral Tablet (Lexapro)Indicatio ns:Adjustment disorder with depressed mood Take 1 Tablet by mouth in the morning. 30 Tablet 5 12/22/19 24 Active Apixaban 5 MG Oral Tablet (Eliquis)Indicatio ns:Chronic atrial fibrillation (HCC) TAKE 1 TABLET BY MOUTH IN THE MORNING AND BEFORE BEDTIME 180 Tablet 3 01/23/20 24 Active Digoxin 125 MCG Oral Tablet (Lanoxin)Indicatio ns:Persistent atrial fibrillation (HCC),HTN, goal below 130/80,Heart failure, diastolic, with acute decompensation (HCC),HFrEF (heart failure with reduced ejection fraction) (HCC) Take 1 Tablet by mouth once a day on Monday, Monday, and Monday only. 45 Tablet 3 01/24/20 24 Active Furosemide 40 MG Oral Tablet (Lasix)Indications :Persistent atrial fibrillation (HCC),HTN, goal below 130/80,Heart failure, diastolic, with acute decompensation (HCC),HFrEF (heart failure with reduced ejection fraction) (HCC) 40 MG SUN, TUES, THURS, SAT & 60 MG MON, MON, MON 110 Tablet 3 01/23/20 24 Active Additional Information Patient taking differently: 60 MG SUN, TUES, THURS, SAT & 40 MG MON, MON, MON, Reported on 04/16/2024 Sennosides 8.6 MG Oral Tablet (Senokot)Indicatio ns:Constipation Take 1 Tablet by mouth 2 times a day. 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, estrogen receptor positive 10/25/2023 Parkinson's disease 10/25/2023 Parkinson's disease 10/25/2023 IPH (idiopathic pulmonary hemosiderosis) 024 History of intracranial hemorrhage 08/29/2023 Acute ischemic right WILLIE stroke 08/29/2023 Acute right MCA stroke 08/27/2023 Embolic stroke 08/26/2023 Left hemiparesis 08/26/2023 Acute deep vein thrombosis (DVT) of left lower e xtremity 08/26/2023 Other pulmonary embolism without acute cor pulmo nale 08/26/2023 Cerebral cavernoma 08/11/2023 Impaired mobility and ADLs 08/11/2023 Right-sided sensory deficit present 08/10/2023 Chronic anticoagulation 08/10/2023 Protein-calorie malnutrition 04/11/2023 Hospital discharge follow-up 01/13/2023 Fall 01/13/2023 Chronic combined systolic and diastolic heart fa ilure 01/13/2023 Ambulatory dysfunction 01/13/2023 Need for influenza vaccination 01/13/2023 Medical home patient encounter 09/22/2022 PHT (pulmonary hypertension) 07/13/2021 History of breast cancer 01/13/2021 Primary pancreatic neuroendocrine tumor 01/14/20 21 Chronic kidney disease, stage 3b 09/08/2020 Overview: Per CKD protocol Systolic dysfunction 08/28/2019 Dyslipidemia, goal LDL below 70 08/28/2019 SOB (shortness of breath) 08/28/2019 Frequent PVCs 08/28/2019 HTN, goal below 130/80 08/16/2019 S/P splenectomy 08/16/2019 Cerebrovascular disease, arteriosclerotic, post- stroke 05/28/2019 Atrial fibrillation 05/02/2019 Dyslipidemia 05/02/2019 Paroxysmal atrial fibrillation 05/02/2019 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, following with [facility] History of CVA (cerebrovascular accident) 2016 documented as of this encounter (statuses as of 04/16/2024) Resolved Problems Problem Noted Date Diagnosed Date Resolved Date Intracranial hemorrhage 08/11/202309/[address] of the head 08/10/202307/30 Prediabetes [...] as of this encounter (statuses as of 04/16/2024) Immunizations Name Administration Dates Next Due COVID-19 [...] Pneumococcal Polysaccharide PPV23 (Pneumovax) 07/17/2019,05/02/2019 Seasonal Influenza, High Dos e, Trivalent, PF, IM (Fluzone HD) 02/01/2024 Seasonal Influenza, Quadriva lent Hd (Fluzone Hd) 01/13/2023,02/15/2022,02/15/2021 Seasonal Influenza, Quadriva lent, No Preserve, IM 02/22/2020 Seasonal Influenza, Trivalen t, Adjuvanted, 65+ YRS, PF, (Fluad) 05/02/2019 TDAP (age 10 and older)(Boostrix) 10/28/2022,06/2010 [...] money to get more. Never true 10/04/2023 Childcare Answer Date Recorded Do you feel overwhelmed with taking care of a child, family member or friend? No 10/04/2023 Does your family need help f inding childcare? (Household - for ages 0-17 years) Not on file 10/04/2023 Clothing Answer Date Recorded Have you been unable to get clothing when it was really needed? No 10/04/2023 Is your family able to get c lothes or diapers when needed? (Household - for ages 0-17 years) Not on file 10/04/2023 Personal Safety Answer Date Recorded Do you feel unsafe or have concerns for your saf ety? No 10/04/2023 Do you have concerns for you r family's safety? (Household - for ages 0-17 years) Not on file 10/04/2023 Utilities Answer Date Recorded Do you have trouble paying y our heating, water, or electric bill? No 10/04/2023 Is your family able to pay t he heat, water, or electric bill? (Household - for ages 0-17 years) Not on file 10/04/2023 Does your family have access to good internet? (Household - for ages 0-17 years) Not on file 10/04/2023 Employment Status Answer Date Recorded Are you unemployed or without regular income? No 10/04/2023 Does the household have a [facility] source of income? (Household - for ages 0-17 years) Not on file 10/04/2023 Social Connections Answer Date Recorded How often do you feel lonely or isolated from th ose around you? Rarely 10/04/2023 Financial Resource Strain Answer Date R ecorded Do you have any trouble payi ng for your medications, or do you think you might in the future? No 10/04/2023 Does your family have troubl e paying for medicine? (Household - for ages 0-17 years) Not on file 10/04/2023 Transportation Needs Answer Date Record ed READ ONLY Do you have troubl e getting a ride to medical visits or work? Never True 10/04/2023 Does your family have a hard time getting a ride to doctors visits? (Household - for ages 0-17 years) Not on file 10/04/2023 Has lack of transportation k ept you from medical appointments, meetings, work, or from getting things needed for daily living? Check all that apply. (Adult - for ages 18 years and over) Not on file 10/04/2023 Do you (or your family) have trouble finding or paying for a ride (transportation)? (Household - for ages 0-17 years) Not on file 10/04/2023 Housing Stability Answer Date Recorded Do you currently live in a s helter or have no steady place to sleep at night? No 10/04/2023 READ ONLY Do you think you a re at risk of becoming homeless? No 10/04/2023 Does your family worry about paying for your home or becoming homeless? (Household - for ages 0-17 years) Not on file 0 10/04/2023 Are you homeless or worried that you might be in the future? (Adult - for ages 18 years and over) Not on file Are you (or your family) chrsitelle eless or worried that you might be in the future? (Household - for ages 0-17 years) Not on file Food Insecurity Answer Date Recorded Do you need food for this week? No 10/04/2023 Are you able to get enough f ood for your family? (Household - for ages 0-17 years) Not on file 10/04/2023 Does your family need food t his week? (Household - for ages 0-17 years) Not on file 10/04/2023 Do you always have enough fo od for your family? (Household - for ages 0-17 years) Not on file 10/04/2023 Comments No Sex and Gender Information Value Date Recorded Sex Assigned at Female 06/20/2019 3:33 PM EST Legal Sex Female 12:24 PM EST Gender Identity Female 06/20/2019 3:33 PM EST Sexual Orientation Straight 06/20/2019 3: 33 PM EST documented as of this encounter Last Filed Vital Signs Vital Sign Reading Time Taken Comments Blood Pressure 110/60 04/16/2024 2:52 PM EST Pulse 64 04/16/2024 2:52 PM EST Temperature 37.2 C (98.9 F) 04/16/2024 2:52 PM ES T Respiratory Rate 16 04/16/2024 2:52 PM EST Oxygen Saturation - - Inhaled Oxygen Concentration - - Weight - - Height - - Body Mass Index - - documented in this encounter Functional Status * Are you deaf or do you have serious difficulty hearing? Answer Date of Assessment Author No 08/26/2023 10:00 PM EDT Jose L Gross i, RN * Are you blind or do you have serious difficulty seeing, even when wearing glasses? Answer Date of Assessment Author No 08/26/2023 10:00 PM EDT Jose L Gross i, RN * Do you have serious difficulty walking or climbing stairs? (5 years old or older) Answer Date of Assessment Author Yes 08/26/2023 10:00 PM EDT Jose L Gross i, RN * Do you have difficulty dressing or bathing? (5 years old or older) Answer Date of Assessment Author Yes 08/26/2023 10:00 PM VIKASHT Jose L Gross i, RN * Because of a physical, mental, or emotional condition, do you have difficulty doing errands alone such as visiting a doctors office or shopping? (15 years old or older) Answer Date of Assessment Author Yes 08/26/2023 10:00 PM VIKASHT Jose L Gross i, RN documented as of this encounter Mental Status * Because of a physical, mental, or emotional condition, do you have serious difficulty concentrating, remembering, or making decisions? (5 years old or older) Answer Entry Date Author Yes 08/26/2023 10:00 PM Jose L Miner i, RN documented in this encounter Progress Notes * Cordell Ruiz, DO - 04/16/2024 3:13 PM EST Subjective: Sofya Perez is a 83 year old female. Chief Complaint Patient presents with Re-Check 3 mo check, sore on buttock, HPI: Pt presents for follow up today. Noticed sore above sacrum about a week ago. Has occasional pain, changes the way she sits. Sits a lot during the day. Having trouble eating bc of tremors. Daughter also notes increased confusion, agitation. Also some sx of paranoia. Delusions. No violent outburts or danger to self or staff. Mood seems stable. PHM: Patient Active Problem List Diagnosis History of CVA (cerebrovascular accident) Lymphoma (HCC) Atrial fibrillation (HCC) Dyslipidemia Cerebrovascular disease, arteriosclerotic, post-stroke HTN, goal below 130/80 S/P splenectomy Systolic dysfunction Dyslipidemia, goal LDL below 70 SOB (shortness of breath) Frequent PVCs Chronic kidney disease, stage 3b (HCC) History of breast cancer Primary pancreatic neuroendocrine tumor PHT (pulmonary hypertension) (HCC) Paroxysmal atrial fibrillation (HCC) Medical home patient encounter Hospital discharge follow-up Fall Chronic combined systolic and diastolic heart failure (HCC) Ambulatory dysfunction Need for influenza vaccination Protein-calorie malnutrition (HCC) Right-sided sensory deficit present Chronic anticoagulation Cerebral cavernoma Impaired mobility and ADLs Embolic stroke (HCC) Left hemiparesis (HCC) Acute deep vein thrombosis (DVT) of left lower extremity (HCC) Other pulmonary embolism without acute cor pulmonale (HCC) Acute right MCA stroke (HCC) History of intracranial hemorrhage Acute ischemic right WILLIE stroke (HCC) Malignant neoplasm of lower-inner quadrant of right breast of female, estrogen receptor positive (HCC) Parkinson's disease (HCC) Parkinson's disease (HCC) IPH (idiopathic pulmonary hemosiderosis) (HCC) Current Outpatient Medications Medication Sig Dispense Refill Calcium Carb-Cholecalciferol 600-200 MG-UNIT Oral Tablet Take 1 Tablet by mouth daily at noon. Ordered 500-200 mg Multiple Vitamin (MULTI-VITAMIN DAILY) Tablet Take 1 [...] mouth at bedtime as needed for Sleep. Docusate Sodium 100 MG Oral Capsule (Colace) Take 1 Capsule by mouth 2 times a day. (08/1999) D3 2000 50 MCG (1999 UT) Oral Capsule (Cholecalciferol) Take 1 Capsule by mouth in the morning. (0800). Midodrine HCl 5 MG Oral Tablet (Proamatine) Take 1 Tablet by mouth in the morning and 1 Tablet before bedtime. 60 Tablet 5 Spironolactone 25 MG Oral Tablet (Aldactone) Take 0.5 Tablets by mouth in the morning. 45 Tablet 3 Escitalopram Oxalate 5 MG Oral Tablet (Lexapro) Take 1 Tablet by mouth in the morning. 30 Tablet 5 Apixaban 5 MG Oral Tablet (Eliquis) TAKE 1 TABLET BY MOUTH IN THE MORNING AND BEFORE BEDTIME 180 Tablet 3 Digoxin 125 MCG Oral Tablet (Lanoxin) Take 1 Tablet by mouth once a day on Monday, Monday, and Monday only. 45 Tablet 3 Furosemide 40 MG Oral Tablet (Lasix) 40 MG SUN, TUES, THURS, SAT & 60 MG MON, MON, MON (Patienttaking differently: 60 MG SUN, TUES, THURS, SAT & 40 MG MON, MON, MON) 110 Tablet 3 Sennosides 8.6 MG Oral Tablet (Senokot) Take 1 Tablet by mouth 2 times a day. () 180 Tablet 3 Pravastatin Sodium 80 MG Oral Tablet TAKE 1 TABLET BY MOUTH EVERY DAY IN THE MORNING 90 Tablet 3 No current facility-administered medications for this visit. 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, following with [facility] Parotid mass 12/11/2018 left, partotidectomy [...] performed by Morena Matthew MD at [facility] DENTAL SURGERY PROCEDURE NEC IDENTIFY SENTINEL NODE, RADIOACTIVE TRACER Right 04/22/2020 INJECTION PROCEDURE FOR IDENTIFICATION SENTINEL NODE performed by Morena Matthew MD at [facility] IR VENOUS IVC FILTER 08/27/2023 MASTECTOMY, PARTIAL Right 04/22/2020 MASTECTOMY PARTIAL performed by Morena Matthew MD at [facility] PROCEDURE - GENERAL Left 03/11/2021 inner,lower left breast punch biopsy by Dr Morena Matthew REMOVAL OF PAROTID GLAND/TUMOR Left 01/28/2019 REMOVAL OF TONSILS, AGE 12+ TOTAL HIP REPLACEMENT & PROSTHESIS Bilateral L 2007, R 2008 Review of patient's allergies indicates: Allergen Reactions Ezetimibe Other reaction(s): Weakness Chlorpheniramine Anxious Chlor Trimeton Objective: BP 110/60 (BP Site: Left Arm, BP Position: Sitting, BP Cuff Size: Regular) | Pulse 64 | Temp 98.9 F (37.2 C) (Tympanic) | Resp 16 Review of Systems: As per HPI, all other ROS neg. Physical Exam: General: alert, healthy, and no distress Heart: no murmur, no gallops, and irregularly irregular Lungs: chest symmetric with normal AP diameter, no chest deformities noted, no chest wall tenderness, lungs clear to auscultation Skin: sacral decubitus ulcer deep in gluteal cleft, unable to fully visualize/stage Pressure injury of skin of sacral region, unspecified injury stage (Primary) - HOME HEALTH REFERRAL OP Chronic kidney disease, stage 3b (HCC) - RENAL FUNCTION PANEL; Future; Expected date: 04/16/2024 Permanent atrial fibrillation (HCC) Rate controlled, on eliquis HTN, goal below 130/80 Stable, cont midodrine Follow up: in 4 month(s). Cordell Ruiz DO documented in this encounter Miscellaneous Notes * Addendum Note - Cordell Ruiz DO - 04/16/2024 4:29 PM ESTAddended by: CORDELL RUIZ on: 04/16/2024 04:29 PM Modules accepted: Orders documented in this encounter Plan of Treatment Upcoming Encounters Date Type Department Care Team (Late st Contact Info) Description 08/15/2024 2:20 PM EDT Office Visit Neurology [facility] [address] [place] [address] Jeanette Gallardo MD [address] [place] [address] 12/04/2024 1:00 PM EDT Office Visit Family Practice [facility] [address] [facility] [place] [address] Cordell Ruiz DO [address] [facility] [place] [address] Scheduled Orders Name Type Priority Associated Diagnoses Orde r Schedule RENAL FUNCTION PANEL Lab Routine Chronic kidney disease, stage 3b (HCC) Expected: 04/16/2024 (Approximate), Expires: 04/16/2025 Scheduled Referrals Name Type Priority Associated Diagnoses Orde r Schedule HOME HEALTH REFERRAL OP Referral Within 3 days (urgent) Pressure injury of skin of sacral region, unspecified injury stage Ordered: 04/16/2024 Health Maintenance Due Date Last Done Comments DIG LEVEL FOR MEDICATION MONITORING YEARLY 07/24/1958 Adult Wellness Visit 07/24/2007 Meningitis B Vaccine (Bexsero/Trumemba) (3 of 4 - Increased Risk Bexsero 2-dose series) 07/16/2020 07/17/2019, 05/15/2019 Albumin/Creatinine Ratio 09/09/2023 09/08/2022, 06/29 COVID-19 Vaccine ( season) 2023 01/24/2022, 09/16/2021, 03/22/2021, Additional history exists GFR 03/18/2024 09/16/2023, 08/29, 09/07/2023, Additional history exists MENINGOCOCCAL (MENACTRA/MENVEO) (3 - Risk 2-dose series) 07/16/2024 07/17/2019, 05/15/2019 CKD PHOS USE SMARTSET 32566 08/31/2024 05/0 06/2023, 08/31/2023, 08/30/2023, Additional history exists CKD HGB USE SMARTSET 94451 09/15/202409/15, 09/09/2023, 09/02/2023, Additional history exists Depression Screening 10/03/2024 10/04/2023, 10/03/2023, 10/03/2023 DXA Scan 03/16/2030 03/16/2023, 07/15/2019 DTap/Tdap Vaccines (3 - Td or Tdap) 10/28/2032 10/28/2022, 05/02/2010 Pneumococcal Vaccine: 65+ Years Completed 07/17/2019, 05/15/2019, 05/02/2019, Additional history exists Zoster Vaccines Completed 10/28/2022, 06/03/2022 Influenza Vaccine (FLU shot) Completed 06/2023, 01/13/2023, 02/15/2022, Additional history exists HPV (Gardasil) Vaccine Aged Out No lo nger eligible based on patient's age to complete this topic Hepatitis B Vaccine Aged Out No longe r eligible based on patient's age to complete this topic documented as of this encounter Medical Devices Implanted Type Area Credit Card Analyst Device Identifier Shelf Expiration Date Model / Serial / Lot [place] Vena Cava Filt Femoral - [id number] Implanted:Qty: 1 on 08/27/2023 at [facility] CR BARD : PERIPHERAL VASCULAR [id number] 05/31/2026 [id number] / / [id number] documented as of this encounter Visit Diagnoses Diagnosis Pressure injury of skin of sacral region, unspecified injury stage- Primary Chronic kidney disease, stage 3b (HCC) Permanent atrial fibrillation (HCC) Atrial fibrillation HTN, goal below 130/80 Unspecified essential hypertension documented in this encounter Advance Directives Documents on File Type Date Recorded 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
--- OUTSIDE RECORDS SUMMARY | 2024-04-23 15:53 | External Medical Summary | Summary of Care ---
Author Name Unknown Organization [facility] Address [address] [place] [address] Phone [phone] Care Team Providers Care Coordinator Cardiopulmonary Services Name Role Phone Anastasia Reza DO Primary Care Provider [phone] Reason for Referral * Evaluate & Treat - Unlimited Visits (Within 3 days (urgent)) - Authorized Specialty Diagnoses / Procedures Referred By Pavel t Referred To Contact HOME CARE / Home Care Diagnoses Pressure injury of skin of sacral region, unspecified injury stage Anastasia Reza DO [address] [place] [address] Phone: tel: fax: Referral ID Status Reason Start Date Expiration Date Visits Requested Visits Authorized [id number] Authorized Specialty Services Required 4 [phone] Question Answer Referral Priority Within 3 days (urgent) Where should this appointment be scheduled? Rebecca Comments Documentation of Ayvw-ux-Xdxo Encounter Addendum Patient Name: Sofya Perez I certify that this patient is under my care and that I, or a nurse practitioner or physician's public health assistant working with me, /had a jbta-ts-bhks encounter that meets the physician gyin-zk-hxmb encounter requirements with this patient on: 04/16/24 [...] should complete this section): tx sacral decubitus ulcer Primary Care Physician to follow home care plan of care after discharge: Anastasia Reza My clinical findings support the need for the above services because: advance age, dec mobility, multiple comorbidities Further, I certify that my clinical findings support that this patient is homebound (i.e. Absences from home require considerable and taxing effort and are for medical reasons or yarsani services or infrequently or of short duration when for other reason) because: Ambulatory dysfunction Physician Signature: Date of Signature: Physician Printed Name: Anastasia Reza DO Reason for Visit * Reason Comments Re-Check 3 mo check, sore on buttock, Encounter Details Date Type Department Care Team (Late st Contact Info) Description 04/16/2024 3:00 PM EST Office Visit Family Practice [facility] [address] [facility] [place] [address] Anastasia Reza DO [address] [facility] [place] [address] Pressure injury of skin of sacral region, [...] day. () Active D3 2000 50 MCG (1999 [place]) [...] (02/27/2019): found at left parotid, following with [facility] cancer center History of CVA (cerebrovascular accident) 2016 documented as of this encounter (statuses as of 04/16/2024) Resolved Problems Problem Noted Date Diagnosed Date Resolved Date Intracranial hemorrhage 08/11/2023 0609/[address] of the head 08/10/202307/30 Prediabetes [...] No 10/04/2023 Does the household have a [facility] source of income? (Household - for [...] on file Are you (or your family) christelle eless or worried that you might be [...] of Assessment Author No 08/26/2023 10:00 PM EDJose L Garcia i, RN * Do you have serious difficulty walking or climbing stairs? (5 years old or older) Answer Date of Assessment Author Yes 08/26/2023 10:00 PM Jose L Miner i, RN * Do you have difficulty dressing or bathing? (5 years old or older) Answer Date of Assessment Author Yes 08/26/2023 10:00 PM Jose L Miner i, RN * Because of a physical, mental, or emotional condition, do you have difficulty doing errands alone such as visiting a doctors office or shopping? (15 years old or older) Answer Date of Assessment Author Yes 08/26/2023 10:00 PM Jose L Miner i, RN documented as of this encounter Mental Status * Because of a physical, mental, or emotional condition, do you have serious difficulty concentrating, remembering, or making decisions? (5 years old or older) Answer Entry Date Author Yes 08/26/2023 10:00 PM Jose L Miner i, RN documented in this encounter Progress Notes * Anastasia Reza, DO - 04/16/2024 3:13 PM EST Subjective: [...] a day. 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 Anastasia Reza DO documented in this encounter Plan of Treatment Upcoming Encounters Date Type Department Care Team (Late st Contact Info) Description 08/15/2024 2:20 PM EDT Office Visit Neurology [facility] [address] [facility] [place] [address] Jeanette Gallardo MD [address] [facility] [place] [address] 12/04/2024 1:00 PM EDT Office Visit [facility] Practice [facility] [address] [facility] [place] [address] Anastasia Reza DO [address] [place] [address] Scheduled Orders Name Type Priority Associated Diagnoses [...] Ratio 09/09/2023 09/08/2022, 06/29 COVID-19 Vaccine ( - season) 2023 01/24/2022, 09/16/2021, 03/22/2021, Additional history exists GFR 03/18/2024 09/16/2023, 08/29, 09/07/2023, Additional history exists MENINGOCOCCAL (MENACTRA/MENVEO) (3 - Risk 2-dose series) 07/16/2024 07/17/2019, 05/15/2019 CKD PHOS USE SMARTSET 57591 08/31/2024 05/0 06/2023, 08/31/2023, 08/30/2023, Additional history exists CKD HGB USE SMARTSET 39627 09/15/202409/15, 09/09/2023, 09/02/2023, Additional history exists Depression [...] this encounter Medical Devices Implanted Type Area Emergency Telecommunications Dispatcher Device Identifier Shelf Expiration Date Model / Serial / Lot Moody Vena Cava Filt Femoral - [id number] Implanted:Qty: 1 on 08/27/2023 at [facility] : PERIPHERAL VASCULAR [id number] 05/31/2026 [id number] / / [id number] documented as of this encounter Visit Diagnoses Diagnosis Pressure injury of skin of sacral region, unspecified injury stage- Primary Chronic kidney disease, stage 3b (HCC) Permanent atrial fibrillation (HCC) Atrial fibrillation HTN, goal below 130/80 Unspecified essential hypertension documented in this encounter Advance Directives Documents on File Type Date Recorded Patient Patient Care Secretary Expl anation Power of Dietitian Helper 07/13/2021 Teresa Crowder [place] in POWER OF LIABILITY CLAIMS ADJUSTER * Full Code (Latest Code Status on [...] Agen t (per Health Care Power of Dietitian Helper document) [email or web address] Asim Perez Adult Child First Alternate Health Care Agent (per Health Care Power of Dietitian Helper document) Care Teams Coordinator Cardiopulmonary Services Relationship Specialty Start Date End Date Anastasia Reza DO [address] [place] [address] PCP - General Family Medicine 07/22/16 documented as of this encounter"
--- OUTSIDE RECORDS SUMMARY | 2024-04-23 15:53 | External Medical Summary | Summary of Care ---
Author Name Unknown Organization [facility] Address [address] [place] [address] Phone [phone] Care Team Providers Care Medical Management Trainer Name Role Phone Cordell Ruiz DO Primary Care Provider [phone] Reason for Referral * Evaluate & Treat - Unlimited Visits (Within 3 days (urgent)) - Authorized Specialty Diagnoses / Procedures Referred By Pavel t Referred To Contact HOME CARE / Home Care Diagnoses Pressure injury of skin of sacral region, unspecified injury stage Cordell Ruiz DO [address] [place] [address] Phone: tel: fax: Referral ID Status Reason Start Date Expiration Date Visits Requested Visits Authorized [id number] Authorized Specialty Services Required 4 [phone] Question Answer Referral Priority Within 3 days (urgent) Where should this appointment be scheduled? Rebecca Comments Documentation of Ywie-pc-Zrhu Encounter Addendum Patient Name: Sofya Perez I certify that this patient is under my care and that I, or a nurse practitioner or physician's assistant manager airside operations working with me, /had a dhot-nj-merp encounter that meets the physician zkrj-ib-qgsa encounter requirements with this patient on: 04/16/24 [...] effort and are for medical reasons or scientology services or infrequently or of short duration when for other reason) because: Ambulatory dysfunction Physician Signature: Date of Signature: Physician Printed Name: Cordell Ruiz DO Reason for Visit * Reason Comments Re-Check 3 mo check, sore on buttock, Encounter Details Date Type Department Care Team (Late st Contact Info) Description 04/16/2024 3:00 PM EST Office Visit Family [facility] [address] [facility] [place] [address] Cordell Ruiz DO [address] [facility] [place] [address] Pressure injury of skin of sacral region, [...] (02/27/2019): found at left parotid, following with [facility] cancer center History of CVA (cerebrovascular [...] No 10/04/2023 Does the household have a [facility] source of income? (Household - for ages [...] 01/2019 found at left parotid, following with [facility] cancer center Parotid mass 12/11/2018 left, [...] performed by Morena Matthew MD at OR [facility] DENTAL SURGERY PROCEDURE NEC IDENTIFY SENTINEL NODE, RADIOACTIVE TRACER Right 04/22/2020 INJECTION PROCEDURE FOR IDENTIFICATION SENTINEL NODE performed by Morena Matthew MD at [facility] IR VENOUS IVC FILTER 08/27/2023 MASTECTOMY, PARTIAL Right 04/22/2020 MASTECTOMY PARTIAL performed by Morena Matthew MD at [facility] PROCEDURE - GENERAL Left 03/11/2021 inner,lower [...] 08/15/2024 2:20 PM EDT Office Visit Neurology [facility] [address] [place] [address] Jeanette Gallardo MD [address] [place] [address] 12/04/2024 1:00 PM EDT Office Visit Family Practice [facility] [address] [facility] [place] [address] Cordell Ruiz DO [address] [facility] [place] [address] Scheduled Orders Name Type Priority Associated Diagnoses [...] 07/16/2024 07/17/2019, 05/15/2019 CKD PHOS USE SMARTSET 68689 08/31/2024 05/0 06/2023, 08/31/2023, 08/30/2023, Additional history exists CKD HGB USE SMARTSET 13605 09/15/202409/15, 09/09/2023, 09/02/2023, Additional history exists Depression [...] this encounter Medical Devices Implanted Type Area Assistant Offset Press Operator Device Identifier Shelf Expiration Date Model / Serial / Lot Boyle Vena Cava Filt Femoral - [id number] Implanted:Qty: 1 on 08/27/2023 at [facility] CR [facility] : PERIPHERAL VASCULAR [id number] 05/31/2026 [id number] / / [id number] documented as of this encounter Visit Diagnoses Diagnosis Pressure injury of skin of sacral region, unspecified injury stage- Primary Chronic kidney disease, stage 3b (HCC) Permanent atrial fibrillation (HCC) Atrial fibrillation HTN, goal below 130/80 Unspecified essential hypertension documented in this encounter Advance Directives Documents on File Type Date Recorded Patient Gray Tender Expl anation Power of Spirits Model 07/13/2021 Teresa Crowder [place] in POWER OF LOOM OPERATOR * Full Code (Latest Code Status [...] Agen t (per Health Care Power of Spirits Model document) [email or web address] Asim Perez Adult Child First Alternate Health Care Agent (per Health Care Power of Spirits Model document) Care Teams Medical Management Trainer Relationship Specialty Start Date End Date Cordell Ruiz DO [address] [place] [address] PCP - General Family Medicine 07/22/16 documented as of this encounter"
--- OUTSIDE RECORDS SUMMARY | 2024-04-23 15:53 | External Medical Summary | Summary of Care ---
Author Name Unknown Organization [facility] Address [address] [facility] [address] Phone [phone] Care Team Providers Care Telephone Recorder Name Role Phone Anastasia Reza DO Primary Care Provider [phone] Reason for Visit * Reason Comments Follow Up Encounter Details Date Type Department Care Team (Late st Contact Info) Description 04/11/2024 9:30 AM EST Telemedicine Cardiology, [facility] [address] [place] [address] Michelle Gallagher CRNP [address] [place] [address] Persistent atrial fibrillation (HCC)*; Heart failure, diastolic, with acute decompensation (HCC); HTN, goal below 130/80; Dyslipidemia, goal LDL below 70; History of CVA (cerebrovascular accident) Allergies Active Allergy Reactions Criticality Noted Date Comments Chlorpheniramine 07/22/2016 Anxious Chlor Trimeton Ezetimibe High 04/05/2022 Other reaction(s): Weakness documented as of this encounter (statuses as of 04/11/2024) Medications Calcium Carb-Cholecalcifer ol 600-200 MG-UNIT Oral [...] day. () Active D3 2000 50 MCG (1999) Oral Capsule (Cholecalciferol) Take 1 Capsule by mouth in the morning. (799). Active Pravastatin Sodium 80 MG Oral TabletIndications: Dyslipidemia, goal LDL below 70 Take 1 Tablet by mouth in the morning. 90 Tablet 3 04/28/20 23 Active Midodrine HCl 5 MG Oral Tablet [...] TUES, THURS, SAT & 60 MG MON, WED, FRI 110 Tablet 3 01/23/20 24 Active Additional Information Patient taking differently: 60 MG SUN, TUES, THURS, SAT & 40 MG MON, MON, MON, Reported on 04/11/2024 Sennosides 8.6 MG Oral Tablet (Senokot)Indicatio ns:Constipation Take 1 Tablet by mouth 2 times a day. () 180 Tablet 3 02/06/20 Active documented as of this encounter (statuses as of 04/11/2024) Active Problems Problem Noted Date Diagnosed Date [...] (02/27/2019): found at left parotid, following with [facility] cancer center History of CVA (cerebrovascular accident) 2016 documented as of this encounter (statuses as of 04/11/2024) Resolved Problems Problem Noted Date Diagnosed Date [...] as of this encounter (statuses as of 04/11/2024) Immunizations Name Administration Dates Next Due COVID-19 mRNA, LNP-s, No Pre serve, 2-Dose Series (Moderna) 07/04/2020,05/30/2020 COVID-19, mRNA, LNP-s, PF, B ooster, 100mcg/0.5mg (Moderna) 09/16/2021,03/22/2021 Covid-19, Mrna, Lnp-s, Pf, B ivalent, 30 Mcg, IM, 12 yrs and above ([facility] PharmStat) 01/24/2022 HIB PRP-OMP, 3 dose (Pedvax) 05/15/2019 [...] No 10/04/2023 Does the household have a re gular source of income? (Household - for ages [...] PM EST documented as of this encounter Functional Status * Are you [...] of Assessment Author Yes 08/26/2023 10:00 PM EDJose L Garcia i, RN * Because of a physical, mental, or emotional condition, do you have difficulty doing errands alone such as visiting a doctors office or shopping? (15 years old or older) Answer Date of Assessment Author Yes 08/26/2023 10:00 PM EDT Jose L Gross i, RN documented as of this encounter Mental Status * Because of a physical, mental, or emotional condition, do you have serious difficulty concentrating, remembering, or making decisions? (5 years old or older) Answer Entry Date Author Yes 08/26/2023 10:00 PM EDT Jose L Gross i, RN documented in this encounter Progress Notes * Michelle Gallagher CRNP - 04/11/2024 9:30 AM EST 04/11/2024 Cardiology Follow Up Primary Frame Stylist: Dr. Schafer/Dharmesh Gasca PA-C Cardiac Problems: Persistent atrial fibrillation. First observed on 06/20/2019. [id number] Score 7 points History of asymptomatic atrial tachycardia Frequent ventricular ectopy including multiple runs of ventricular tachycardia Mild to moderately reduced left ventricular systolic function, EF 40-45%. Systolic and diastolic congestive heart failure Pulmonary hypertension Nocturnal hypoxemia, mild obstructive sleep apnea, prescribed supplemental oxygen QHS Hypertension Dyslipidemia. Intolerant to statin and ezetimibe Enlarged ascending aorta Chronic kidney disease Parotid gland tumor status post removal, grade 2 follicular lymphoma Pancreatic tumor, status post June 27, 2019 robotic distal pancreatectomy and splenectomy at [facility], well differentiated neuroendocrine tumor TIA/CVA Right breast cancer status post April 22, 2020 right breast lumpectomy and sentinel node biopsy,status post radiation, on Arimidex. Status post bilateral hip replacements, left in 2007, right in 2008 Prior dental surgery Status post tonsillectomy HPI: Sofya Perez is a 83 year old female presents via TELEMED for routine cardiology follow up. Last seen in the office by the undersigned 10/23/23 following 3 separate hospitalizations, one for an acute CVA August 2003 (both ischemic and hemorraghic) as well as DVT/PE s/p IVC filter. And a recent hospitalization September 2023 for possible TIA. Patient location: FACILITY. I was in a hospital or clinic location. After connecting through televideo, patient was identified by name and date of and/or wristband checked. Patient (or authorized legal admissions representative) was then informed that this was a Telemedicine visit being conducted confidentially over secure lines. My office door was closed. No one else was in the room with me.. Patientacknowledged consent and understanding of privacy and security of the Telemedicine visit and gave permission to have a telemedicine presenter stay in the room in order to assist with the history and to conduct the exam as needed. I informed the patient that I have reviewed their record in [employer] and presented the opportunity for them to ask any questions regarding the visit today. The patient agreed to participate. Patient presents today feeling well overall. Daughter, Teresa, is with her and helping to navigate the conversation. Patient resides at [facility], denies any new or ongoing cardiac concerns. She is typically in awheelchair. No chest pain, pressure or palpitations, no shortness of breath, PND, presyncope, syncope or edema. Daughter reports that she also feels patient is doing well from a cardiac perspective. Medications and recent vital signs, including weights were confirmed with nursing facility staff. BP well controlled. Compliant on all medications with no untoward effects. REVIEW OF SYSTEMS: See HPI for pertinent positives. All others negative other than those noted in the HPI. CONSTITUTIONAL: No change in weight, No weakness, No fatigue and No fevers, No sweats or chills. PULMONARY: No cough, sputum, or hemoptysis, No wheezing, No shortness or breath and No recent change in breathing. CARDIOVASCULAR: No chest pain, No dyspnea on exertion, No edema, No palpitations and No syncope. GASTROINTESTINAL: No abdominal pain, No change in bowel habits, No significant heartburn, No nausea, No vomiting, No diarrhea, No constipation, No blood in stools or black tarry stools. No dysphagia. HEMATOLOGIC: No abnormal bleeding and No bruising. NEUROLOGICAL: Normal balance, No headaches and No weakness. Review of patient's allergies indicates: Allergen Reactions Ezetimibe Other reaction(s): Weakness Chlorpheniramine Anxious Chlor Trimeton Current Outpatient Medications Medication Sig Dispense Refill [...] mouth in the morning. 90 Tablet 3 Midodrine HCl 5 MG Oral Tablet (Proamatine) [...] THURS, SAT & 60 MG MON, MON, FRI (Patienttaking differently: 60 MG SUN, TUES, THURS, SAT & 40 MG MON, MON, MON) 110 Tablet 3 Sennosides 8.6 MG Oral Tablet (Senokot) Take 1 Tablet by mouth 2 times a day. () 180 Tablet 3 No current facility-administered medications for this visit. 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, following with [facility] cancer center Parotid mass 12/11/2018 left, partotidectomy 01/28/19. lymphoma Paroxysmal atrial fibrillation (HCC) 05/02/2019 S/P splenectomy 08/16/2019 Sleep apnea, obstructive Thyroid nodule 12/27/2018 non-specific thyroid nodule on right lobe measuring 2.8x1.6x1.7cm on CT, pt states bx negative. Family History Problem Relation Name Age of Onset Other (AD) Mother Cancer Father renal, prostate Hypertension Father Cancer Sister AML? Arthritis Brother Hypertension Brother Other (HLD) Son Social History Socioeconomic History Marital status: Tobacco Use Smoking status: Never Smokeless tobacco: Never Vaping Use Vaping status: Never Used Substance and Sexual Activity Alcohol use: No Drug use: No Social Needs Financial Resource Strain: Low Risk (10/04/2023) Financial Resource Strain Do you have any trouble paying for your medications, or do you think you might in the future? (Adult - for ages 18 years and over): No Food Insecurity: No Food Insecurity (10/04/2023) Food Insecurity Do you need food for this week? (Adult - for ages 18 years and over): No Transportation Needs: No Transportation Needs (10/04/2023) Transportation Needs Do you have trouble getting a ride to medical visits or work? (Adult - for ages 18 years and over):Never True Social Connections: Socially Integrated (10/04/2023) Social Connections How often do you feel lonely or isolated from those around you? (Adult - for ages 18 years and over): Rarely Housing Stability: Low Risk (10/04/2023) Housing Stability Do you currently live in a skilled nursing or have no steady place to sleep at night? (Adult - for ages 18 years and over): No Do you think you are at risk of becoming homeless? (Adult - for ages 18 years and over): No OBJECTIVE/PHYSICAL EXAMINATION: There were no vitals taken for this visit. General: No acute distress. A+Ox3. PSYCH: Appropriate affect and insight. Telemed visit, unable to complete a full physical exam DATA Labs & Imaging Reviewed Below: April 24, 2019 TTE Interpretation Summary ([facility], Dr. Schafer): Sinus bradycardia present. Normal size left ventricle. Moderate concentric LVH. Mild global hypokinesis of the left ventricle. Ejectionfraction 40 to 45%. Grade 1 diastolic dysfunction. No regional wall motion abnormalities. 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 No significant valvular disease. Normal left atrial size noted. May 08, 2019 Lexiscan Interpretation Summary (as per Dr. Cho): Myocardial perfusion imaging is normal. Overall left ventricular systolic function was normal without regional wall motion abnormalities. The left ventricular ejection fraction was 54%. There are no prior studies available for comparison. July 09, 2021 TTE Interpretation Summary (as per Dr. Schafer): There was atrial fibrillation during the examination. The left ventricular cavity size is normal. The LV wall thickness is mildly increased (concentric). The left ventricular wall motion is normal. The qualitative LV ejection fraction is50-54% (normal). Calculated LV ejection Fraction = 52% (three dimensional volumes). The left atriumis severely enlarged (>48 ml/m^2,). The right atrium is moderately enlarged. Mild mitral regurgitation is present. Moderate to severe tricuspid regurgitation is present. The proximal inferior venacava is dilated, but collapses inspiration consistent with an intermediate right atrial pressure of8 millimeters Hg. Moderate pulmonary hypertension is present. The estimated pulmonary artery systolic pressure is 45-50 mm Hg. July 2021 Zio, while on Toprol XL 75 mg/day: 1 run of Ventricular Tachycardia occurred lasting 4 beats with a max rate of 135 bpm (avg 134 bpm). Atrial Fibrillation occurred continuously (100% burden), ranging from 48-121 bpm (avg of 78 bpm). Isolated VEs were frequent (6.5%, [address]), VE Couplets were rare (<1.0%, 1211), and VE Triplets were rare (<1.0%, 21). Ventricular Bigeminy and Trigeminy were present. Imaging performed at the ER on April 05, 2022 reviewed. Chest x-ray with no acute cardiopulmonaryfindings, cardiomegaly. Head CT with no acute intracranial findings, no significant change in appearance of brain, multiple old infarcts similar to prior imaging. 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 Neck CTA showed no occlusion, hemodynamically significant stenosis, or dissection in the major cervicalarteries. MRI of the brain on April 16, 2022 revealed extensive chronic ischemic changes without evidence of acute intracranial abnormality. October 08, 2022 TTE interpretation summary ([facility], Dr. Schafer): Atrial fibrillation with a controlled ventricular response rate. Normal size LV. Mild concentric LVH. Prolonged global hypokinesis of the LV. EF 50 to 55%. Moderately dilated left atrium. Mild tricuspid regurgitation. RVSP 40 to 50 mmHg. In comparison to prior study from March 2019, overall LV systolic function has improved slightly. ASSESSMENT/PLAN: 83 year old year old female 1. Persistent atrial fibrillation (HCC) -Remains asymptomatic -Continue current medication regimen which includes Eliquis 5mg BID for oral AC therapy--no bleeding concerns. -Continue Digoxin 2. Heart failure, diastolic, with acute decompensation (HCC) -Daughter reports no concerns of volume overload. -Continue Furosemide as per current regimen (40mg MWF and 60mg on the other days) 3. HTN, goal below 130/80 -Low normal, patient is currently on Midodrine 4. Dyslipidemia, goal LDL below 70 -Recommend yearly lipid panel -Continue simvastatin 5. History of CVA (cerebrovascular accident) -Continue with daily exercises for strengthening of hand/leg. -Struggles with some word finding -Following with neurology DISPOSITION: Follow up 6 months in person or if symptoms worsen/fail to improve. All questions were answered to the patients satisfaction. Patient advised to report to ED with any and all emergencies. The patient agrees to the above plan and will call with additional questions or concerns. [facility], [address] [address] I spent a total of 35 minutes on the date of service in preparation, delivery, and documentation ofthe care provided to Sofya Perez excluding any time spent in the performance of separately billed services. This chart was completed in part utilizing [employer] Speech Voice Recognition Software. Grammatical errors, random word insertions, pronoun errors, and incomplete sentences are an occasional consequence of this system due to software limitations, ambient noise, and hardware issues. Any formal questions or concerns about the content, text, or information contained within the body of this dictation should be directly addressed to the provider for clarification. documented in this encounter Nursing Notes * Alina Somers CMA - 04/11/2024 9:43 AM EST Examination Room: Telemed Name: Sofya Perez Date of : (1940). Reason for Visit: 7M f/u Interim Hospitalization(s): [facility] ED Problems/Concerns: Denies new issues or concerns. Daughter states LE swelling has been well-controlled, still wearing compression socks. Chest Pain/SOB: denies [facility] Discussed: Not applicable [facility] is a way you can talk to your provider online through e-mail. Would you like to sign up? I can activate it for you? ALREADY ACTIVE Patient was instructed to not get up on the exam table until directed and assisted by their provider; patient is to remain seated in the chair/ wheelchair/ exam table for fall prevention and safety reasons. Patient is aware to have assistance to step down off exam table with personnel. Patient voiced full comprehension of instructions. documented in this encounter Plan of Treatment Upcoming Encounters Date Type Department Care Team (Late st Contact Info) Description 05/08/2024 1:00 PM EST Office Visit Family Practice [facility] [address] [place] [address] Anastasia Reza DO [address] [place] [address] 08/15/2024 2:20 PM EDT Office Visit Neurology [facility] [address] [place] [address] Jeanette Gallardo MD [address] [facility] [place] [address] Health Maintenance Due Date Last Done Comments [...] 07/16/2024 07/17/2019, 05/15/2019 CKD PHOS USE SMARTSET 41573 08/31/2024 05/0 06/2023, 08/31/2023, 08/30/2023, Additional history exists CKD HGB USE SMARTSET 66853 09/15/202409/15, 09/09/2023, 09/02/2023, Additional history exists Depression [...] this encounter Medical Devices Implanted Type Area Medical Economics Consultant Device Identifier Shelf Expiration Date Model / Serial / Lot Wise Vena Cava Filt Femoral - [id number] Implanted:Qty[facility] PER[facility]HERAL VASCULAR [id number] 05/31/2026 [id number] / / [id number] documented as of this encounter Visit Diagnoses Diagnosis Persistent atrial fibrillation (HCC)- Primary Atrial fibrillation Heart failure, diastolic, with acute decompensation (HCC) Acute on chronic diastolic heart failure HTN, goal below 130/80 Unspecified essential hypertension Dyslipidemia, goal LDL below 70 Other and unspecified hyperlipidemia History of CVA (cerebrovascular accident) Transient ischemic attack (TIA), and cerebral infarction without residual deficits documented in this encounter Advance Directives Documents on File Type Date Recorded Patient Stoker Erector And Servicer Expl anation Power of Taxi Servicer 07/13/2021 Teresa Crowder [place] in POWER OF ASSEMBLY LINE BRAZER * Full Code (Latest Code Status on [...] Name Relationship Healthcare Agent Relationship Communication Teresa Hammondager Adult Child Health Care Agen t (per Health Care Power of Taxi Servicer document) [email or web address] Asim Perez Adult Child First Alternate Health Care Agent (per Health Care Power of Taxi Servicer document) Care Teams Telephone Recorder Relationship Specialty Start Date End Date Anastasia Reza DO [address] [place] [place] [address] PCP - General Family Medicine 07/22/16 documented as of this encounter
--- OUTSIDE RECORDS SUMMARY | 2024-04-23 15:53 | External Medical Summary | Summary of Care ---
Author Name Unknown Organization [facility] Address [address] [facility] [address] Phone [phone] Care Team Providers Care Perianesthesia Manager Name Role Phone Anastasia Reza DO Primary Care Provider [phone] Reason for Visit * Reason Comments eRx-Medication Refill Encounter Details Date Type Department Care Team (Late st Contact Info) Description 04/12/2024 Refill Cardiology, [facility] [address] [place] [address] Dharmesh Gasca, PA-C [address] [place] [address] Dyslipidemia, goal LDL below 70 Allergies Active Allergy Reactions Criticality Noted Date Comments Chlorpheniramine 07/22/2016 Anxious Chlor Trimeton Ezetimibe High 04/05/2022 Other reaction(s): Weakness documented as of this encounter (statuses as of 04/12/2024) Medications Calcium Carb-Cholecalcife rol 600-200 MG-UNIT Oral Tablet Take 1 Tablet [...] once a day on Monday only. (0700) 022 Active Aspirin EC 81 MG Oral Tablet Delayed Release Take 1 Tablet by mouth in the morning. 31 Tablet 5 022 Active Melatonin 3 MG Oral Tablet Take 1 Tablet by mouth at bedtime as needed for Sleep. Active Docusate Sodium 100 MG Oral Capsule (Colace) Take 1 Capsule by mouth 2 times a day. () Active D3 2000 50 MCG (1999 UT) Oral Capsule (Cholecalciferol) Take 1 Capsule by mouth in the morning. (0800). Active Midodrine HCl 5 MG Oral Tablet (Proamatine)Indic ations:Orthostati c hypotension Take 1 Tablet by mouth in the morning and 1 Tablet before bedtime. 60 Tablet 5 024 Active Spironolactone 25 MG Oral Tablet (Aldactone)Indica tions:Persistent atrial fibrillation (HCC),HTN, goal below 130/80,Heart failure, diastolic, with acute decompensation (HCC),HFrEF (heart failure with reduced ejection fraction) (HCC) Take 0.5 Tablets by mouth in the morning. 45 Tablet 3 024 Active Escitalopram Oxalate 5 MG Oral Tablet (Lexapro)Indicati ons:Adjustment disorder with depressed mood Take 1 Tablet by mouth in the morning. 30 Tablet 5 024 Active Apixaban 5 MG Oral Tablet (Eliquis)Indicati ons:Chronic atrial fibrillation (HCC) TAKE 1 TABLET BY MOUTH IN THE MORNING AND BEFORE BEDTIME 180 Tablet 3 024 Active Digoxin 125 MCG Oral Tablet (Lanoxin)Indicati ons:Persistent atrial fibrillation (HCC),HTN, goal below 130/80,Heart failure, diastolic, with acute decompensation (HCC),HFrEF (heart failure with reduced ejection fraction) (HCC) Take 1 Tablet by mouth once a day on Monday, Monday, and Monday only. 45 Tablet 3 024 Active Furosemide 40 MG Oral Tablet (Lasix)Indication s:Persistent atrial fibrillation (HCC),HTN, goal below 130/80,Heart failure, diastolic, with acute decompensation (HCC),HFrEF (heart failure with reduced ejection fraction) (HCC) 40 MG MON, , TH, SAT & 60 MG MON, WED, FRI 110 Tablet 3 024 Active Additional Information Patient taking differently: 60 MG SUN, TUES, THURS, SAT & 40 MG MON, MON, MON, Reported on 04/11/2024 Sennosides 8.6 MG Oral Tablet (Senokot)Indicati ons:Constipation Take 1 Tablet by mouth 2 times a day. () 180 Tablet 3 024 Active Pravastatin Sodium 80 MG Oral TabletIndications :Dyslipidemia, goal LDL below 70 TAKE 1 TABLET BY MOUTH EVERY DAY IN THE MORNING 90 Tablet 3 024 Active Pravastatin Sodium 80 MG Oral TabletIndications :Dyslipidemia, goal LDL below 70 Take 1 Tablet by mouth in the morning. 90 Tablet 3 023 2023 Discontinued documented as of this encounter (statuses as of 04/12/2024) Active Problems Problem Noted Date Diagnosed Date [...] (02/27/2019): found at left parotid, following with [facility] center History of CVA (cerebrovascular accident) 2016 documented as of this encounter (statuses as of 04/12/2024) Resolved Problems Problem Noted Date Diagnosed Date [...] as of this encounter (statuses as of 04/12/2024) Immunizations Name Administration Dates Next Due COVID-19 [...] Assessment Author No 08/26/2023 10:00 PM EDT Joes L Gross i, RN * Are you blind or do you have serious difficulty seeing, even when wearing glasses? Answer Date of Assessment Author No 08/26/2023 10:00 PM VIKASHT Jose L Gross i, RN * Do [...] Gross i, RN documented in this encounter Miscellaneous Notes * Telephone Encounter - Michelle Bell CRNP - 04/12/2024 4:29 PM EST Signed Prescriptions: Disp Refills Pravastatin Sodium 80 MG Oral Tablet 90 Tab*3 Sig: TAKE 1 TABLET BY MOUTH EVERY DAY IN THE MORNING Authorizing Provider: MICHELLE BELL * Telephone Encounter - January Espinoza RPh - 04/12/2024 3:45 PM ESTPending Prescriptions: Disp Refills Pravastatin Sodium 80 MG Oral Tablet [Phar*90 Tab*3 Sig: TAKE 1 TABLET BY MOUTH EVERY DAY IN THE MORNING * Telephone Encounter - January Espinoza RPh - 04/12/2024 3:39 PM EST Forwarding refill request to provider. Per note from 04/11 4. Dyslipidemia, goal LDL below 70 -Recommend yearly lipid panel -Continue simvastatin Per dispense records patient has been taking pravastatin 80 mg daily. Thanks, January Espinoza, PharmD Clinical Pharmacist [facility] 04/12/2024, 3:45 PM documented in this encounter Plan of Treatment Upcoming Encounters Date Type Department Care Team (Late st Contact Info) Description 05/08/2024 1:00 PM EST Office Visit Family [facility] [address] [place] [address] Anastasia Reza DO [address] [place] [address] 08/15/2024 2:20 PM EDT Office Visit Neurology [facility] [address] [facility] [place] [address] Jeanette Gallardo MD [address] [facility] [place] [address] Health Maintenance Due Date Last Done Comments [...] 07/16/2024 07/17/2019, 05/15/2019 CKD PHOS USE SMARTSET 12152 08/31/2024 05/0 06/2023, 08/31/2023, 08/30/2023, Additional history exists CKD HGB USE SMARTSET 73647 09/15/202409/15, 09/09/2023, 09/02/2023, Additional history exists Depression [...] this encounter Medical Devices Implanted Type Area Tmr Teacher Device Identifier Shelf Expiration Date Model / Serial / Lot Karon Vena Cava Filt Femoral - [id number] Implanted:Qty: 1 on 08/27/2023 at [facility] CR BARD : PERIPHERAL VASCULAR [id number] 05/31/2026 [id number] / / [id number] documented as of this encounter Visit Diagnoses Diagnosis Dyslipidemia, goal LDL below 70 Other and unspecified hyperlipidemia documented in this encounter Advance Directives Documents on File Type Date Recorded Patient Coverer Expl anation Power of Dexigraph Operator 07/13/2021 Teresa Aguilera in POWER OF AUDIOMETRIC TECHNICIAN * Full Code (Latest Code Status on [...] Agen ivory (per Health Care Power of Dexigraph Operator document) [email or web address] Asim Perez Adult Child First Alternate Health Care Agent (per Health Care Power of Dexigraph Operator document) Care Teams Perianesthesia Manager Relationship Specialty Start Date End Date Anastasia Reza DO [address] [place] [address] PCP - General Family Medicine 07/22/16 documented as of this encounter
--- OUTSIDE RECORDS SUMMARY | 2024-04-23 15:53 | External Medical Summary | Summary of Care ---
Author Name Unknown Organization [facility] Address [address] [place] [address] Phone [phone] Care Team Providers Care End Finder Twisting Department Name Role Phone Anastasia Reza DO Primary Care Provider [phone] Reason for Referral * Evaluate & Treat - Unlimited Visits (Within 3 days (urgent)) - Authorized Specialty Diagnoses / Procedures Referred By Pavel t Referred To Contact HOME CARE / Home Care Diagnoses Pressure injury of skin of sacral region, unspecified injury stage Anastasia Reza DO [address] [place] [address] Phone: tel: fax: Referral ID Status Reason Start Date Expiration Date Visits Requested Visits Authorized [id number] Authorized Specialty Services Required 4 [phone] Question Answer Referral Priority Within 3 days (urgent) Where should this appointment be scheduled? Rebecca Comments Documentation of Nwsb-sq-Slua Encounter Addendum Patient Name: Sofya Perez I certify that this patient is under my care and that I, or a nurse practitioner or physician's assistant associate professor working with me, /had a blgy-wp-itrq encounter that meets the physician jxip-kr-fnxu encounter requirements with this patient on: 04/16/24 [...] effort and are for medical reasons or episcopal services or infrequently or of short duration when for other reason) because: Ambulatory dysfunction Physician Signature: Date of Signature: Physician Printed Name: Anastasia Reza DO Reason for Visit * Reason Comments Re-Check 3 mo check, sore on buttock, Encounter Details Date Type Department Care Team (Late st Contact Info) Description 04/16/2024 3:00 PM EST Office Visit Family Practice [facility] [address] [facility] [place] [address] Anastasia Reza DO [address] [facility] [place] [address] Pressure injury of skin of sacral region, [...] of intracranial hemorrhage 08/29/2023 Acute ischemic right WLILIE stroke 08/29/2023 Acute right MCA stroke 08/27/2023 [...] (02/27/2019): found at left parotid, following with [facility] cancer center History of CVA (cerebrovascular [...] No 10/04/2023 Does the household have a zuni hospitallar source of income? (Household - for [...] 01/2019 found at left parotid, following with [facility] cancer center Parotid mass 12/11/2018 left, [...] performed by Morena Matthew MD at OR [facility] DENTAL SURGERY PROCEDURE NEC IDENTIFY SENTINEL NODE, RADIOACTIVE TRACER Right 04/22/2020 INJECTION PROCEDURE FOR IDENTIFICATION SENTINEL NODE performed by Morena Matthew MD at [facility] IR VENOUS IVC FILTER 08/27/2023 MASTECTOMY, PARTIAL Right 04/22/2020 MASTECTOMY PARTIAL performed by Morena Matthew MD at [facility] PROCEDURE - GENERAL Left 03/11/2021 inner,lower [...] 08/15/2024 2:20 PM EDT Office Visit Neurology [facility] [address] [facility] [place] [address] Jeanette Gallardo MD [address] [facility] [place] [address] 12/04/2024 1:00 PM EDT Office Visit Family Practice [facility] [place] [address] Anastasia Reza DO [address] [place] [address] Scheduled Orders Name Type Priority Associated Diagnoses [...] 07/16/2024 07/17/2019, 05/15/2019 CKD PHOS USE SMARTSET 65097 08/31/2024 05/0 06/2023, 08/31/2023, 08/30/2023, Additional history exists CKD HGB USE SMARTSET 05298 09/15/202409/15, 09/09/2023, 09/02/2023, Additional history exists Depression [...] this encounter Medical Devices Implanted Type Area Youth Worker Device Identifier Shelf Expiration Date Model / Serial / Lot Haskell Vena Cava Filt Femoral - [id number] Implanted:Qty: 1 on 08/27/2023 at [facility] CR BARD : PERIPHERAL VASCULAR [id number] 05/31/2026 [id number] / / [id number] documented as of this encounter Visit Diagnoses Diagnosis Pressure injury of skin of sacral region, unspecified injury stage- Primary Chronic kidney disease, stage 3b (HCC) Permanent atrial fibrillation (HCC) Atrial fibrillation HTN, goal below 130/80 Unspecified essential hypertension documented in this encounter Advance Directives Documents on File Type Date Recorded Patient Wall Covering Contractor Expl anation Power of Franchise Manager 07/13/2021 Teresa Crowder Pooler in POWER OF DIRECTOR OF RETAIL MARKETING * Full Code (Latest Code Status on [...] Agen t (per Health Care Power of Franchise Manager document) [email or web address] Asim Perez Adult Child First Alternate Health Care Agent (per Health Care Power of Franchise Manager document) Care Teams End Finder Twisting Department Relationship Specialty Start Date End Date Ansatasia Reza DO [address] [place] [address] PCP - General Family Medicine 07/22/16 documented as of this encounter"
--- OUTSIDE RECORDS SUMMARY | 2024-04-23 15:53 | External Medical Summary | Summary of Care ---
Author Name Unknown Organization [facility] Address [address] [place] [address] Phone [phone] Care Team Providers Care Macaroni Press Operator Name Role Phone Anastasia Reza DO Primary Care Provider [phone] Reason for Referral * Evaluate & Treat - Unlimited Visits (Within 3 days (urgent)) - Authorized Specialty Diagnoses / Procedures Referred By Pavel t Referred To Contact HOME CARE / Home Care Diagnoses Pressure injury of skin of sacral region, unspecified injury stage Anastasia Reza DO [address] [place] [address] Phone: tel: fax: Referral ID Status Reason Start Date Expiration Date Visits Requested Visits Authorized [id number] Authorized Specialty Services Required 4 [phone] Question Answer Referral Priority Within 3 days (urgent) Where should this appointment be scheduled? Rebecca Comments Documentation of Iaxn-ie-Mtvo Encounter Addendum Patient Name: Sofya Perez I certify that this patient is under my care and that I, or a nurse practitioner or physician's administrative assistant office manager working with me, /had a kseq-vq-ozho encounter that meets the physician kdfr-kj-rvlk encounter requirements with this patient on: 04/16/24 [...] effort and are for medical reasons or mormon services or infrequently or of short duration when for other reason) because: Ambulatory dysfunction Physician Signature: Date of Signature: Physician Printed Name: Anastasia Reza DO Reason for Visit * Reason Comments Re-Check 3 mo check, sore on buttock, Encounter Details Date Type Department Care Team (Late st Contact Info) Description 04/16/2024 3:00 PM EST Office Visit Family Practice [facility] [address] [facility] [place] [address] Anastasia Reza DO [address] [facility] [place] [address] Pressure injury of skin of sacral region, [...] (02/27/2019): found at left parotid, following with [facility] cancer center History of CVA [...] No 10/04/2023 Does the household have a [facility] hospitall[facility] source of income? (Household - for [...] 01/2019 found at left parotid, following with [facility] cancer center Parotid mass 12/11/2018 [...] performed by Morena Matthew MD at [facility] DENTAL SURGERY PROCEDURE NEC IDENTIFY SENTINEL NODE, RADIOACTIVE TRACER Right 04/22/2020 INJECTION PROCEDURE FOR IDENTIFICATION SENTINEL NODE performed by Morena Matthew MD at [facility] IR VENOUS IVC FILTER 08/27/2023 MASTECTOMY, PARTIAL Right 04/22/2020 MASTECTOMY PARTIAL performed by Morena Matthew MD at [facility] PROCEDURE - GENERAL Left 03/11/2021 inner,lower [...] cont midodrine Follow up: in 4 month(s). Anastasai Reza DO documented in this encounter Plan of Treatment Upcoming Encounters Date Type Department Care Team (Late st Contact Info) Description 08/15/2024 2:20 PM EDT Office Visit Neurology [facility] [address] [facility] [place] [address] Jeanette Gallardo MD [address] [facility] [place] [address] 12/04/2024 1:00 PM EDT Office Visit Family Practice [facility] [place] [address] Anastasia Reza DO [address] [place] [address] Scheduled Orders Name Type Priority Associated Diagnoses [...] 07/16/2024 07/17/2019, 05/15/2019 CKD PHOS USE SMARTSET 17885 08/31/2024 05/0 06/2023, 08/31/2023, 08/30/2023, Additional history exists CKD HGB USE SMARTSET 15779 09/15/202409/15, 09/09/2023, 09/02/2023, Additional history exists Depression [...] this encounter Medical Devices Implanted Type Area Head Sawyer Device Identifier Shelf Expiration Date Model / Serial / Lot Ogle Vena Cava Filt Femoral - [id number] Implanted:Qty: 1 on 08/27/2023 at [facility] CR BARD : PERIPHERAL VASCULAR [id number] 05/31/2026 [id number] / / [id number] documented as of this encounter Visit Diagnoses Diagnosis Pressure injury of skin of sacral region, unspecified injury stage- Primary Chronic kidney disease, stage 3b (HCC) Permanent atrial fibrillation (HCC) Atrial fibrillation HTN, goal below 130/80 Unspecified essential hypertension documented in this encounter Advance Directives Documents on File Type Date Recorded Patient Paperhanger Assistant Expl anation Power of Certified Solid Waste Facility Operator 07/13/2021 Teresa Crowder Bly in POWER OF ASSEMBLER ERECTOR * Full Code (Latest Code Status on [...] Agen t (per Health Care Power of Certified Solid Waste Facility Operator document) [email or web address] Asim Perez Adult Child First Alternate Health Care Agent (per Health Care Power of Certified Solid Waste Facility Operator document) Care Teams Macaroni Press Operator Relationship Specialty Start Date End Date Anastasia Reza DO [address] [place] [address] PCP - General Family Medicine 07/22/16 documented as of this encounter"
--- OUTSIDE RECORDS SUMMARY | 2024-04-23 15:54 | External Medical Summary | Summary of Care ---
Author Name Unknown Organization [facility] Address [address] [facility] [address] Phone [phone] Care Team Providers Care Tongue Carrier Name Role Phone Anastasia Reza DO Primary Care Provider [phone] Reason for Visit * Reason Onset Date Comments Health Maintenance 03/20/2024 Encounter Details Date Type Department Care Team (Late st Contact Info) Description 03/20/2024 Telephone Family Practice [facility] [address] [place] [address] Anastasia Reza DO [address] [place] [address] Health Maintenance Allergies Active Allergy Reactions Criticality Noted Date Comments Chlorpheniramine 07/22/2016 Anxious Chlor Trimeton Ezetimibe High 04/05/2022 Other reaction(s): Weakness documented as of this encounter (statuses as of 03/20/2024) Medications Calcium Carb-Cholecalcifero l 600-200 MG-UNIT Oral Tablet Take 1 Tablet by mouth daily at noon. Ordered 500-200 mg Active Multiple Vitamin (MULTI-VITAMIN DAILY) Tablet Take 1 Tablet by mouth in the morning. (0800). Active Magnesium Hydroxide 400 MG/5ML Oral Suspension Take 30 mL by mouth daily as needed for Constipation . Active Alendronate Sodium 70 MG Oral Tablet (Fosamax) Take 1 Tablet by mouth once a day on Monday only. (0700) 2 Active Aspirin EC 81 MG Oral [...] the morning. 90 Tablet 3 3 Active Midodrine HCl 5 MG Oral Tablet (Proamatine)Indicat ions:Orthostatic hypotension Take 1 Tablet by mouth in the morning and 1 Tablet before bedtime. 60 Tablet 5 4 Active Spironolactone 25 MG Oral Tablet (Aldactone)Indicati ons:Persistent atrial fibrillation (HCC),HTN, goal below 130/80,Heart failure, diastolic, with acute decompensation (HCC),HFrEF (heart failure with reduced ejection fraction) (HCC) Take 0.5 Tablets by mouth in the morning. 45 Tablet 3 4 Active Escitalopram Oxalate 5 MG Oral Tablet (Lexapro)Indication s:Adjustment disorder with depressed mood Take 1 Tablet by mouth in the morning. 30 Tablet 5 4 Active Apixaban 5 MG Oral Tablet (Eliquis)Indication s:Chronic atrial fibrillation (HCC) TAKE 1 TABLET BY MOUTH IN THE MORNING AND BEFORE BEDTIME 180 Tablet 3 4 Active Digoxin 125 MCG Oral Tablet (Lanoxin)Indication s:Persistent atrial fibrillation (HCC),HTN, goal below 130/80,Heart failure, diastolic, with acute decompensation (HCC),HFrEF (heart failure with reduced ejection fraction) (HCC) Take 1 Tablet by mouth once a day on Monday, Monday, and Monday only. 45 Tablet 3 4 Active Furosemide 40 MG Oral Tablet (Lasix)Indications: Persistent atrial fibrillation (HCC),HTN, goal below 130/80,Heart failure, diastolic, with acute decompensation (HCC),HFrEF (heart failure with reduced ejection fraction) (HCC) 40 MG SUN, TUES, TH, SAT & 60 MG MON, MON, MON 110 Tablet 3 4 Active Sennosides 8.6 MG Oral Tablet (Senokot)Indication s:Constipation Take 1 Tablet by mouth 2 times a day. () 180 Tablet 3 4 Active documented as of this encounter (statuses as of 03/20/2024) Active Problems Problem Noted Date Diagnosed Date [...] (02/27/2019): found at left parotid, following with [facility] cancer center History of CVA (cerebrovascular accident) 2016 documented as of this encounter (statuses as of 03/20/2024) Resolved Problems Problem Noted Date Diagnosed Date [...] as of this encounter (statuses as of 03/20/2024) Immunizations Name Administration Dates Next Due COVID-19 [...] of Assessment Author No 08/26/2023 10:00 PM Jose L Miner i, RN * Are you blind or do you have serious difficulty seeing, even when wearing glasses? Answer Date of Assessment Author No 08/26/2023 10:00 PM Jose L Miner i, RN * Do you have serious [...] encounter Miscellaneous Notes * Telephone Encounter - Doris Ruiz LPN - 03/20/2024 11:00 AM EST Care Gaps Comprehensive Care Outreach Last Office/Telemedicine Visit: 11/22/2023 (in office), 08/16/2019 (telemedicine) Next Office Visit: 06/19/2024 Hemoglobin AIC Results: Lab Results Component Value Date/Time HEMOGLOBIN A1C - [facility] 6.0 (H) 04/11/2023 12:04 PM HEMOGLOBIN A1C - [facility] 6.0 (H) 04/08/2022 12:43 PM BP Readings from Last 1 Encounters: 02/01/24 104/62 Reviewed Health Maintenance below: Health Maintenance Topic Date Due DIG LEVEL FOR MEDICATION MONITORING YEARLY Never done Adult Wellness Visit Never done Meningitis B Vaccine (Bexsero/Trumemba) (3 of 4 - Increased Risk Bexsero 2-dose series) 07/16/2020 Albumin/Creatinine Ratio 09/09/2023 COVID-19 Vaccine ( season) 2023 GFR 03/18/2024 Labs Awv In [facility] Care Gap Outreach Action Taken: Outreach not indicated documented in this encounter Plan of Treatment Upcoming Encounters Date Type Department Care Team (Late st Contact Info) Description 04/11/2024 9:30 AM EST Office Visit Cardiology, [facility] [address] [place] [address] Michelle Gallagher CRNP [address] [place] [address] 06/19/2024 5:00 PM EST Office Visit Family Practice [facility] [address] [place] [address] Anastasia Reza DO [address] [place] [address] 08/15/2024 2:20 PM EDT Office Visit Neurology [facility] [place] [address] [facility] [place] [address] Jeanette Gallardo MD [address] [facility] [place] [address] Health Maintenance Due Date Last Done Comments [...] 07/16/2024 07/17/2019, 05/15/2019 CKD PHOS USE SMARTSET 88274 08/31/2024 05/0 06/2023, 08/31/2023, 08/30/2023, Additional history exists CKD HGB USE SMARTSET 75891 09/15/202409/15, 09/09/2023, 09/02/2023, Additional history exists Depression [...] this encounter Medical Devices Implanted Type Area Weather Anchor Device Identifier Shelf Expiration Date Model / Serial / Lot Karon Vena Cava Filt Femoral - [id number] Implanted:Qty: 1 on 08/27/2023 at [facility] CR BARD : PERIPHERAL VASCULAR [id number] 05/31/2026 [id number] / / [id number] documented as of this encounter Advance Directives Documents on File Type Date Recorded Patient Freight Car Repairer Expl anation Power of Display Manager 07/13/2021 Teresa Crowder Rebecca in POWER OF RIPSAW GRADER * Full Code (Latest Code Status on [...] Agen t (per Health Care Power of Display Manager document) [email or web address] Asim Perez Adult Child First Alternate Health Care Agent (per Health Care Power of Display Manager document) Care Teams Tongue Carrier Relationship Specialty Start Date End Date Anastasia Reza DO [address] [place] [address] PCP - General Family Medicine 07/22/16 documented as of this encounter
--- NOTE | 2024-04-23 16:10 | History & Physical Report ---
Date of Service April 23, 2024 Assessment & Plan (1) Wound of sacral region: (2) Wound infection: Plan: This is an 83yo F resident of [facility] with a PMH of history of CVA with left hemiparesis, known sacral wound, chronic atrial fibrillation on anticoa gulation, frequent ventricular ectopy, chronic diastolic heart failure (EF: 55% 2023), nocturnal hypoxia and mild MARGARTE with oxygen HS, dyslipidemia with statin intolerance, h/p pancreatic tumor s/p distal pancreatectomy/splenectomy, CKD III, lymphoma, history of breast cancer and other medical problems who presents from [facility] with worsening appearance of sacral wound. Chronic sacral wound, following with wound care at [facility], noted to be worsening Care complicated by left hemiparesis following CVA, limited mobility CT abd/pelvis mild osteopenia in the coccyx adjacent to a sacral wound with subcutaneous emphysema. Findings are concerning for cellulitis and possible osteomyelitis Continue empiric Zosyn, vanc Ordered MRI for better visualization of sacrum given possible osteo but canceled due to h/o bilat hip replacement, too much metal artifact Turn and reposition Q2H Wound care nurse Routine gen surg for possible debridement vs culture NPO at [facility] (3) CVA (cerebral vascular accident): Plan: With residual L hemiparesis Continue aspirin, statin (4) Chronic diastolic heart failure: Plan: Appears euvolemic. Continue home lasix, spironolactone (5) Chronic a-fib: Plan: Continue digoxin MWF Holding eliquis in case of OR - heparin gtt for now until gen surg evaluation (6) Mood disorder: Plan: Continue SSRI DVT Ppx: Heparin gtt for now Code status: DNR/DNI as confirmed over phone with POA/daughter PCP: Verito Reza Dispo: admitted to med/surg Patient seen in collaboration with Dr. Araya. Please see addendum. I spent a total of 65 minutes coordinating, documenting, and providing care for this patient excluding time spent in the performance of separately billed services. History of Present Illness Chief Complaint: sacral wound Primary Care Provider: [facility] This is an 83yo F resident of [facility] with a PMH of history of CVA with left hemiparesis, known sacral wound, chronic atrial fibrillation on anticoagulation, frequent ventricular ectopy, chronic diastolic heart failure (EF: 55% 2023), nocturnal hypoxia and mild MARGARET with oxygen HS, dyslipidemia with statin intolerance, h/p pancreatic tumor s/p distal pancreatectomy/splenectomy, CKD III, lymphoma, history of breast cancer and other medical problems who presents from [facility] with worsening appearance of sacral wound. Was being seen by wound care there today and due to worsening appearance was sent to the ED for further evaluation. Has history of CVA with L sided weakness and therefore limited mobility. History limited 2/2 confusion but does know she has pain near buttocks. Per phone conversation with daughter/POA, patient is at mentation baseline with intermittent confusion. Is confirmed as a DNR. Allergies Allergy/AdvReac Type Severity Reaction Status Date / Time ezetimibe AdvReac Intermediate Weakness Verified 10/17/23 20:06 chlorpheniramine AdvReac Mild "Antsy Verified 10/17/23 20:06 [From Chlor-Trimeton] Feeling" Home Medications Medication Instructions Recorded Confirmed Type calcium 600 mg (as 1 tab PO .LUNCH TIME 04/23/19 04/23/24 History carbonate)-vitamin D3 5 mcg (200 unit) tablet multivitamin 1 tab PO DAILY 04/23/19 04/23/24 History alendronate 70 mg tablet (Fosamax) 70 mg PO FR@0900 04/05/22 04/23/24 History spironolactone 25 mg tablet 12.5 mg PO DAILY 05/18/22 04/23/24 History aspirin 81 mg tablet,delayed 81 mg PO DAILY 09/12/22 04/23/24 History release digoxin 125 mcg (0.125 mg) tablet 125 mcg PO MOWEFR@0900 12/20/22 04/23/24 History melatonin 3 mg tablet 3 mg PO HS PRN Insomnia 12/20/22 04/23/24 History sennosides 8.6 mg tablet (Senokot) 8.6 mg PO BID 12/20/22 04/23/24 History pravastatin 80 mg tablet 80 mg PO DAILY 05/18/23 04/23/24 History furosemide 40 mg tablet 40 mg PO 4XWK 08/18/23 04/23/24 History apixaban 5 mg tablet (Eliquis) 5 mg PO Q12 10/17/23 04/23/24 History cholecalciferol (vitamin D3) 50 2,000 unit PO DAILY 10/17/23 04/23/24 History mcg (2,000 unit) capsule escitalopram oxalate 5 mg tablet 5 mg PO QAM 10/17/23 04/23/24 History furosemide 40 mg tablet 60 mg PO 3XWK 10/17/23 04/23/24 History midodrine 5 mg tablet 5 mg PO BID 10/17/23 04/23/24 History Past Med/Surg History Problem List (Updated 04/23/24 @ 18:46 by Ramona Perez PA-C) Wound infection (Acute) Wound of sacral region (Acute) Vision changes Weakness (Acute) Internal carotid artery dissection (Acute) Acute CVA (cerebrovascular accident) (Acute) CVA (cerebral vascular accident) Hyperkalemia Ambulatory dysfunction (Acute) Head injury (Acute) Acute bilateral knee pain (Acute) Fall from standing (Acute) Combined systolic and diastolic heart failure Rhabdomyolysis (Acute) Fall (Acute) Chronic diastolic heart failure Weakness (Acute) Ambulatory dysfunction (Acute) Chronic a-fib (Acute) Generalized weakness (Acute) Elevated troponin (Acute) 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 Matthew on 04/22/2020 Breast cancer, right 03/09/2020 Medical History (Updated 04/23/24 @ 18:46 by Ramona Perez PA-C) Mood disorder Follicular lymphoma grade 3a Atrial fibrillation Neuroendocrine carcinoma of pancreas CVA (cerebral vascular accident) Cardiomyopathy Ventricular ectopy TIA (transient ischemic attack) 2009 - No Deficits Arthritis Surgical History Post-splenectomy History of superficial parotidectomy 01/28/19 - with facial nerve dissection and preservation History of tonsillectomy as a child History of colonoscopy 2018 History of hip replacement, total Left - 2007, Right - 2008 Family History Father , Passed age 88 of Kidney Cancer No problems noted. Mother , Passed age 83 of Alzheimers Disease No problems noted. Brother No problems noted. Sister ALL (acute lymphoblastic leukemia), Onset Age: 66 Now in remission Daughter No problems noted. Son No problems noted. Social History Smoking Status: Never smoker Second Hand Exposure: No; Do You Dip or Chew Tobacco: No; Hx Alcohol Use: No Hx Substance Use: No Preferred Language: Paraguayan Communication Ability: Effective Visual Impairment: Limited Hearing Ability: Normal Air Battle Manager Required: No Beliefs That Will Affect Care: None marital status: / Current [facility] Current Living Situation Comment: 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 Physical Exam Physical Exam: Please see Dr. Araya's addendum for physical exam. Results & Data Results & Data Vital Signs (Past 12 Hours) Vital Signs Temp Pulse Resp BP Pulse Ox O2 Del Method 04/23/24 15:39 88 19 130/84 95 04/23/24 14:20 36.8 C 96 H 15 116/86 96 Room Air 04/23/24 14:19 96 H 04/23/24 14:15 96 H 20 116/86 Laboratory Results Short CBC 04/23/24 Range/Units 14:31 WBC 6.63 (4.8-10.8) K/ul Hgb 13.2 (12.0-16.0) g/dl Hct 39.4 (37.0-47.0) % Plt Count 451 H (130-400) K/uL BMP 04/23/24 14:31 Sodium 139 Potassium 3.9 Chloride 95 L Carbon Dioxide 34 H BUN 21 Creatinine 0.87 Glucose 91 Calcium 9.2 Liver Function 04/23/24 Range/Units 14:31 Total Bilirubin 0.6 (0.2-1.0) mg/dl AST 30 (13-39) U/L ALT 32 (7-52) U/L Alkaline Phosphatase 58 (34-104) U/L Albumin 3.5 (3.4-5.0) gm/dl Diagnostic Findings Abdomen/Pelvis CT 04/23/24 14:18 CT abd pelvis IV con only CLINICAL HISTORY: sacral wound TECHNIQUE: Helical axial images of the abdomen and pelvis were obtained and displayed. Automated dose lowering techniques and/or adjustment according to patient size were utilized for this exam. This exam was performed with intravenous contrast. CT DOSE: 1052.05 mGy.cm COMPARISON: Comparison is made to CT abdomen pelvis 07/22/2022 FINDINGS: Lower chest: Bibasilar atelectasis versus scarring is seen. Liver: Hepatic cysts are seen. Gallbladder and biliary tree: No calcified gallstones. Normal caliber wall. No intra- or extrahepatic biliary ductal dilation. Pancreas: Unremarkable, no focal lesions. Spleen: Patient status post lobectomy. Adrenals: Unremarkable. Kidneys and ureters: Unremarkable. Bladder: Unremarkable. Reproductive organs: Unremarkable. Bowel: Diverticulosis is seen without diverticulitis. The appendix is normal. A hiatal hernia is seen. Lymph nodes Retroperitoneal: Unremarkable. Pelvic: Unremarkable. Mesenteric: Unremarkable. Peritoneum: Normal. Vessels: Atherosclerotic calcifications are seen. An IVC filter is seen. Abdominal wall: A sacral ulcer is seen with subcutaneous emphysema and skin thickening. No drainable fluid collection is seen. Bones: Degenerative changes in the visualized spine. Bilateral hip arthroplasties are seen. At the site of the wound, there is mild osteopenia in the coccyx. IMPRESSION: Mild osteopenia in the coccyx adjacent to a sacral wound with subcutaneous emphysema. Findings are concerning for cellulitis and possible osteomyelitis. ACT 112: Negative or not required by law. Electronically signed by: Yaakov Roman M.D. 04/23/2024 3:47 PM Supervising Physician Co-Signing Physician Notes Patient seen and examined Awake, alert and oriented to person and place but confused Unable to get good hx from her On exam, General: Elderly woman, not in distress Eyes: PERRL, conjunctivae normal, not pale, anicteric sclerae, EOM intact bilaterally ENMT: External ear and nose normal, oropharynx normal Respiratory: Normal respiratory effort, no respiratory distress, lungs clear to auscultation, no crackles and no wheezes Cardiovascular: RRR Gastrointestinal (Abdomen): Abdomen is not distended, soft, non-tender to palpation, no guarding, no palpable hepatosplenomegaly, normal bowel sounds Musculoskeletal: No pedal edema Skin: Sacral eschar Neurologic: No focal weakness, sensation grossly intact Psychiatric: Alert and oriented x person and place, confused Abd/P CT noted sacral wound with subcut emphysema. Findings of cellulitis and possible osteomyelitis Get Gen surg c/s for wound Get MRI to confirm osteomyelitis IV vanc and zosyn for now Hold home eliquis in case of procedure and do hep gtt for now I spent a total of 40 minutes coordinating, documenting and providing care for this patient excluding time spent in performance of separately billed services
[2024-04-23] MEDS: VANCOMYCIN HCL 1,250 MG in SODIUM CHLORIDE 0.9% 500 ML IV ONE (16:48)
[2024-04-23] MEDS ORDERED: MELATONIN 3 MG TAB PO PRN (19:28)
[2024-04-23] MEDS: PIPERACILLIN/TAZOBACTAM 4.5 GM/100 ML BAG IV SCH (21:56)
[2024-04-23] MEDS: HEPARIN SODIUM/DEXTROSE 25,000 UNITS/500 ML BAG IV SCH (22:04)
[2024-04-23] MEDS: Heparin IV Adult Wt-Based Low-Dose *NO* INITIAL Bolus Protocol IV SCH (22:05)
[2024-04-23] MEDS: SENNA 8.6 MG TAB PO SCH (22:14)
[2024-04-23 22:33] LABS: INR 1.2 (0.9-1.1); Partial Thromboplastin Ratio 1.1; Partial Thromboplastin Time 29 Seconds (21-31); Prothrombin Time 12.4 Seconds (9.0-12.0)
[2024-04-24] MEDS: VANCOMYCIN HCL 1,250 MG in SODIUM CHLORIDE 0.9% 250 ML IV SCH (02:00)
[2024-04-24 06:05] LABS: Basophils # (auto) 0.04 K/uL (0.00-0.20); Basophils % (auto) 0.5 %; Eosinophils # (auto) 0.09 K/uL (0.00-0.50); Eosinophils % (auto) 1.2 %; Hematocrit (blood only) 37.3 % (37.0-47.0); Hemoglobin 12.2 g/dl (12.0-16.0); Immature Granulocytes # (auto) 0.04 K/uL (0.01-0.20); Immature Granulocytes % (auto) 0.5 %; Lymphocytes # (auto) 0.87 K/uL (1.20-3.40); Lymphocytes % (auto) 11.6 %; Mean Corpuscular Hemoglobin 31.4 pg (25.0-34.0); Mean Corpuscular Hgb Conc 32.7 g/dL (32.0-36.0); Mean Corpuscular Volume 96.1 fL (80.0-100.0); Mean Platelet Volume 10.3 fL (9.4-12.4); Monocytes # (auto) 0.62 K/uL (0.11-0.59); Monocytes % (auto) 8.3 %; Neutrophils # (auto) 5.85 K/uL (1.40-6.50); Neutrophils % (auto) 77.9 %; Platelet Count 398 K/uL (130-400); RDW Coefficient of Variation 15.2 % (11.5-14.5); RDW Standard Deviation 53.9 fL (36.4-46.3); Red Blood Count 3.88 M/uL (4.20-5.40); White Blood Count 7.51 K/ul (4.8-10.8)
[2024-04-24 06:29] LABS: Calcium 8.9 mg/dl (8.6-10.3); Creatinine Clr Calc Pharmacy 40.9 ml/min; Potassium 3.6 mmol/L (3.5-5.1)
[2024-04-24 07:16] LABS: ANTI-Xa, UFH(UnfractionatedHep > 1.50 IU/ml (0.3-0.7)
[2024-04-24] MEDS: MIDODRINE HCL 2.5 MG TAB PO SCH (08:19)
[2024-04-24] MEDS: ASPIRIN 81 MG ECTAB PO SCH (08:19)
[2024-04-24] MEDS: CHOLECALCIFEROL 25 MCG (1000 UNITS) TAB PO SCH (08:19)
[2024-04-24] MEDS: DIGOXIN 0.125 MG TAB PO SCH (08:20)
[2024-04-24] MEDS: FUROSEMIDE 20 MG TAB PO SCH (08:20)
[2024-04-24] MEDS: ESCITALOPRAM OXALATE 10 MG TAB PO SCH (08:20)
[2024-04-24] MEDS: PRAVASTATIN SOD 40 MG TAB PO SCH (08:20)
[2024-04-24] MEDS: MULTIVITAMIN TAB PO SCH (08:20)
[2024-04-24] MEDS: SPIRONOLACTONE 12.5 MG TAB PO SCH (08:21)
[2024-04-24] MEDS: ACETAMINOPHEN 325 MG TAB PO PRN (08:45)
[2024-04-24 09:19] LABS: ANTI-Xa, UFH(UnfractionatedHep 1.33 IU/ml (0.3-0.7)
--- NOTE | 2024-04-24 09:22 | Surgery Consultation ---
Date of Consultation April 24, 2024 Assessment & Plan (1) Wound of sacral region: She does have a necrotic sacral wound with some purulent fluid able to be expressed from there She last took her Eliquis yesterday morning, continue to hold this and she is currently on a heparin drip Will plan on an excisional debridement of the sacral wound tomorrow in the operating room Please hold the heparin drip at 6 AM tomorrow morning N.p.o. after midnight (2) Chronic a-fib: History of Present Illness Reason for Consultation: Sacral wound Attending Physician: Demond Barragan MD History of Present Illness This is an 83-year-old female who presented to the ER yesterday with increasing sacral pain, sharp in nature as well as drainage from the area. No aggravating or relieving factors. She states has been there several weeks. She does complain of some pain at the area currently. Denies any fevers or chills. She does take Eliquis for history of A-fib. Allergies Allergy/AdvReac Type Severity Reaction Status Date / Time ezetimibe AdvReac Intermediate Weakness Verified 10/17/23 20:06 chlorpheniramine AdvReac Mild "Antsy Verified 10/17/23 20:06 [From Chlor-Trimeton] Feeling" Home Medications Medication Instructions Recorded Confirmed Type calcium 600 mg (as 1 tab PO .LUNCH TIME 04/23/19 04/23/24 History carbonate)-vitamin D3 5 mcg (200 unit) tablet multivitamin 1 tab PO DAILY 04/23/19 04/23/24 History alendronate 70 mg tablet (Fosamax) 70 mg PO FR@0900 04/05/22 04/23/24 History spironolactone 25 mg tablet 12.5 mg PO DAILY 05/18/22 04/23/24 History aspirin 81 mg tablet,delayed 81 mg PO DAILY 09/12/22 04/23/24 History release digoxin 125 mcg (0.125 mg) tablet 125 mcg PO MOWEFR@0900 12/20/22 04/23/24 History melatonin 3 mg tablet 3 mg PO HS PRN Insomnia 12/20/22 04/23/24 History sennosides 8.6 mg tablet (Senokot) 8.6 mg PO BID 12/20/22 04/23/24 History pravastatin 80 mg tablet 80 mg PO DAILY 05/18/23 04/23/24 History furosemide 40 mg tablet 40 mg PO 4XWK 08/18/23 04/23/24 History apixaban 5 mg tablet (Eliquis) 5 mg PO Q12 10/17/23 04/23/24 History cholecalciferol (vitamin D3) 50 2,000 unit PO DAILY 10/17/23 04/23/24 History mcg (2,000 unit) capsule escitalopram oxalate 5 mg tablet 5 mg PO QAM 10/17/23 04/23/24 History furosemide 40 mg tablet 60 mg PO 3XWK 10/17/23 04/23/24 History midodrine 5 mg tablet 5 mg PO BID 10/17/23 04/23/24 History Patient History Medical History Mood disorder Follicular lymphoma grade 3a Atrial fibrillation Neuroendocrine carcinoma of pancreas CVA (cerebral vascular accident) Cardiomyopathy Ventricular ectopy TIA (transient ischemic attack) 2009 - No Deficits Arthritis Surgical History Post-splenectomy History of superficial parotidectomy 01/28/19 - with facial nerve dissection and preservation History of tonsillectomy as a child History of colonoscopy 2018 History of hip replacement, total Left - 2007, Right - 2008 Family History Father , Passed age 88 of Kidney Cancer No problems noted. Mother , Passed age 83 of Alzheimers Disease No problems noted. Brother No problems noted. Sister ALL (acute lymphoblastic leukemia), Onset Age: 66 Now in remission Daughter No problems noted. Son No problems noted. 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 Other Information That Helps Us Care for You: No (Patient confused) Feels Safe at Home: No Is there a partner from a previous relationship who is making you feel unsafe now?: No (Patient is a living in a assisted home) Any Concerns about Your Family Situation: No (Patient confused could not answer) Childhood Exposure to Second-Hand Smoke: Yes (Father Smoked in Home ) caffeine: Yes (4 cups of coffee/day ) Dental Care, Regularly: Yes Assistive Devices: Walker Review of Systems Constitutional: no fever and no chills Eyes: no blind spots and no worsening vision Ear, Nose, Mouth, Throat: no ear pain and no hearing loss Respiratory: no cough and no dyspnea Cardiovascular: no chest pain and no dyspnea on exertion Gastrointestinal: no abdominal pain, no nausea and no vomiting Genitourinary: no dysuria and no urinary urgency Musculoskeletal: no back pain and no neck pain Integumentary: + skin ulcer and + wounds; no acne Neurologic: + confusion and + memory loss; no headac he(s) Psychiatric: no behavioral changes and no depression Hematologic / Lymphatic: + easy bleeding; no easy bruising On Eliquis Physical Exam Constitutional: WD/WN, vitals as above Eyes: PERRL, conjunctivae normal, anicteric sclerae ENMT: external ear and nose normal, oropharynx normal Neck: trachea midline, no thyromegaly Respiratory: normal respiratory effort, lungs clear to auscultation Cardiovascular: RRR, no murmur, no edema Gastrointestinal (Abdomen): normal bowel sounds, soft, nontender, no hepatosplenomegaly Musculoskeletal: no cyanosis or clubbing, extremities motor strength 5/5 Skin: no rashes, warm and dry 5 cm x 5 cm sacral wound/eschar at the s acral area with purulent fluid able to be expressed from the wound/eschar Neurologic: PERRL, EOMI, accommodation nl, no face palsy, no dysarthria Psychiatric: A+Ox3, euthymic affect Results & Data Vital Signs (Past 12 Hours) Vital Signs Temp Pulse Pulse Resp BP Pulse Ox O2 Del Method 04/24/24 08:20 64 04/24/24 07:24 36.6 C 64 16 120/81 96 Room Air 04/23/24 21:37 36.8 C 102 H 16 135/96 96 Room Air PG Care Time/CCT Total # of Minutes Spent Total Time Spent with Patient: Total time spent is greater than 50% in coordination of care (as documented) at patient's floor/unit and/or counseling patient: Coding Level of Care Code 72244 INT INP/OBS CARE 375MIN Diagnoses Wound of sacral region, initial encounter S31.000A Encounter type: initial encounter Chronic a-fib I48.20 (1) Wound of sacral region Encounter type: initial encounter Qualified Code(s): S31.000A - Unspecified open wound of lower back and pelvis without penetration into retroperitoneum, initial encounter
[2024-04-24 10:44] LABS: ANTI-Xa, UFH(UnfractionatedHep 1.19 IU/ml (0.3-0.7)
[2024-04-24 11:04] LABS: A calco-baum cmplx NotReported Not Detected (NotDetected); Bact fragilis Not Reported Not Detected (NotDetected); Blood Culture Id Panel See PCR Comment (NotDetected); C auris Not Reported Not Detected (NotDetected); Calbicans Not Reported Not Detected (NotDetected); Candida glabrata Not Reported Not Detected (NotDetected); Candida krusei Not Reported Not Detected (NotDetected); Cneoformans/gatti Not Reported Not Detected (NotDetected); Cparapsilosis Not Reported Not Detected (NotDetected); E cloacae compx Not Reported Not Detected (NotDetected); Efaecalis Not Reported Not Detected (NotDetected); Efaecium Not Reported Not Detected (NotDetected); Enterobacterales Not Reported Not Detected (NotDetected); Escherichia coli Not Reported Not Detected (NotDetected); H influenzae Not Reported Not Detected (NotDetected); K aerogenes Not Reported Not Detected (NotDetected); Koxytoca Not Reported Not Detected (NotDetected); Kpneumoniae grp Not Reported Not Detected (NotDetected); Lmonocyt Not Reported Not Detected (NotDetected); N meningitidis Not Reported Not Detected (NotDetected); P aeruginosa Not Reported Not Detected (NotDetected); Proteus spp Not Reported Not Detected (NotDetected); Salmonella spp Not Reported Not Detected (NotDetected); Staph lugdunensis Not Reported Not Detected (NotDetected); Staph spp. Not Reported DETECTED (NotDetected); Staphaureus Not Reported Not Detected (NotDetected); Staphepi Not Reported Not Detected (NotDetected); Stenmaltophilia Not Reported Not Detected (NotDetected); Strep agal(GrpB) Not Reported Not Detected (NotDetected); Strep pneum Not Reported Not Detected (NotDetected); Strep pyog (GrpA) Not Reported Not Detected (NotDetected); Strep spp Not Reported Not Detected (NotDetected)
[2024-04-24 11:23] LABS: Staphylococcus spp. DETECTED (NotDetected)
--- NOTE | 2024-04-24 11:40 | Pharmacy Report ---
Pharmacy PK ABX Note - Date of Service April 24, 2024 - Assessment and Plan Assessment 83 year old F receiving vancomycin/zosyn for treatment of sacral wound infection, plan for OR on 04/25. Blood culture aerobic bottle with staph sp. (likely coag negative staph), anaerobic bottle currently negative. Sacrum culture prelim with moderate mixed skin microbiota Plan Vancomycin * Loading dose: 1250 mg IV x 1 * Maintenance dose: 1250 mg IV every 24 hours * Regimen is predicted to achieve target AUC/RAFI of 400-600 mg/L.hr * Random level ordered for 04/26 @ 1200 Pharmacy will continue to follow and will adjust dose/frequency as necessary. Thank you. Pharmacy has transitioned to AUC monitoring for vancomycin. AUC/RAFI is the preferred PK/PD target and is associated with decreased risk of nephrotoxicity compared to traditional trough targets.
[2024-04-24 12:00] LABS: ANTI-Xa, UFH(UnfractionatedHep 1.18 IU/ml (0.3-0.7)
[2024-04-24 12:02] LABS: Appearance Urine Clear (Clear); Bilirubin Urine Negative (Negative); Blood Urine Negative (Negative); Color Urine Yellow; Glucose Urine UA Negative (Negative); Ketones Urine 1+ (Negative); Leukocyte Esterase Urine Negative (Negative); Nitrite Urine Negative (Negative); Protein Urine Negative (Negative); Specific Gravity Urine 1.042 (1.000-1.030); Urobilinogen Urine Negative (Negative); pH Urine 6.5 (4.5-7.5)
[2024-04-24] MEDS: CALCIUM 600MG + VIT D 400 IU TAB PO SCH (12:36)
[2024-04-24 13:05] LABS: ANTI-Xa, UFH(UnfractionatedHep 1.09 IU/ml (0.3-0.7)
[2024-04-24 14:34] LABS: ANTI-Xa, UFH(UnfractionatedHep 1.02 IU/ml (0.3-0.7)
--- NOTE | 2024-04-24 15:30 | Hospitalist Progress Note ---
Date of Service April 24, 2024 Assessment & Plan (1) Wound of sacral region: (2) Wound infection: Plan: Patient is an 83 yr female resident of [facility] with a PMH of history of CVA with left hemiparesis, known sacral wound, chronic atrial fibrillation on anticoagulation, frequent ventricular ectopy, chronic diastolic heart failure (EF: 55% 2023), nocturnal hypoxia and mild MARGARET with oxygen HS, dyslipidemia with statin intolerance, h/p pancreatic tumor s/p distal pancreatectomy/splenectomy, CKD III, lymphoma, history of breast cancer and other medical problems who presents from [facility] with worsening appearance of sacral wound. Necrotic Sacral wound/Cellulitis Possible osteomyelitis Abnormal blood cultures Care complicated by left hemiparesis following CVA, limited mobility --CT ABD:Mild osteopenia in the coccyx adjacent to a sacral wound with subcutaneous emphysema. Findings are concerning for cellulitis and possible osteomyelitis. -- Blood culture 1/2: Gram-positive cocci in clusters --follows with wound care at [facility] -- Continue vancomycin, Zosyn for now --Appreciate surgery input N.p.o. after midnight for excisional debridement of sacral wound tomorrow Plan to hold IV heparin tomorrow at 6 AM for procedure (3) CVA (cerebral vascular accident): Plan: With residual L hemiparesis Continue aspirin, statin (4) Chronic diastolic heart failure: Plan: Appears euvolemic. Continue home lasix, spironolactone (5) Chronic a-fib: Plan: Continue digoxin MWF Holding eliquis in case of OR - heparin gtt for now (6) Mood disorder: Plan: Continue SSRI DVT Px: Heparin gtt Code status: DNR/DNI Admission and Anticipated Discharge Date Admission Date: April 23, 2024 Subjective Patient is seen and examined at bedside States having cyclical wound pain with movement but otherwise no complaints Denies any chest pain, dyspnea, nausea, vomiting, abdominal pain Updated patient's daughter over the phone Review of Systems Review of Systems: All systems reviewed & are unremarkable except as noted in Subjective Physical Exam Physical Exam: Physical Exam: Vitals signs as noted above General Appearance:Moderately built and nourished, no apparent distress Head: normocephalic, Atraumatic Eyes: normal inspection, EOMI Neck: supple, Trachea midline Respiratory/Chest: Normal breath sounds, CTA, No accessory muscle use Cardiovascular: Irregularly irregular, No murmur Abdomen/GI:Soft, Non tender, Bowel sounds present Extremities/Musculoskeletal:normal inspection,1+ edema Neurologic/Psych:AAOX3, grossly no focal neurological deficits Skin: normal color, warm,+ sacral wound/eschar, purulent fluid Results & Data Results & Data Vital Signs (Past 12 Hours) Vital Signs Temp Pulse Pulse Resp BP Pulse Ox O2 Del Method 04/24/24 08:20 64 04/24/24 07:24 36.6 C 64 16 120/81 96 Room Air Laboratory Results Short CBC 04/24/24 Range/Units 05:36 WBC 7.51 (4.8-10.8) K/ul Hgb 12.2 (12.0-16.0) g/dl Hct 37.3 (37.0-47.0) % Plt Count 398 (130-400) K/uL BMP 04/24/24 05:36 Sodium 140 Potassium 3.6 Chloride 98 Carbon Dioxide 33 H BUN 19 Creatinine 0.95 Glucose 112 H Calcium 8.9 Urine 04/24/24 Range/Units 11:45 Urine Color Yellow Urine Appearance Clear (Clear) Urine pH 6.5 (4.5-7.5) Ur Specific [place] 1.042 H (1.000-1.030) Urine Protein Negative (Negative) Urine Glucose (UA) Negative (Negative) (1) Wound of sacral region Encounter type: initial encounter Qualified Code(s): S31.000A - Unspecified open wound of lower back and pelvis without penetration into retroperitoneum, initial encounter
[2024-04-24 16:05] LABS: ANTI-Xa, UFH(UnfractionatedHep 1.03 IU/ml (0.3-0.7)
[2024-04-25 01:21] LABS: ANTI-Xa, UFH(UnfractionatedHep 0.75 IU/ml (0.3-0.7)
[2024-04-25] MEDS: FUROSEMIDE 40 MG TAB PO SCH (08:20)
--- NOTE | 2024-04-25 09:38 | Hospitalist Progress Note ---
Date of Service April 25, 2024 Assessment & Plan (1) Wound of sacral region: (2) Wound infection: Plan: Patient is an 83 yr female resident of [facility] with a PMH of history of CVA with left hemiparesis, known sacral wound, chronic atrial fibrillation on anticoagulation, frequent ventricular ectopy, chronic diastolic heart failure (EF: 55% 2023), nocturnal hypoxia and mild MARGARET with oxygen HS, dyslipidemia with statin intolerance, h/p pancreatic tumor s/p distal pancreatectomy/splenectomy, CKD III, lymphoma, history of breast cancer and other medical problems who presents from [facility] with worsening appearance of sacral wound. Necrotic Sacral wound/Cellulitis Possible osteomyelitis Abnormal blood cultures Care complicated by left hemiparesis following CVA, limited mobility --CT ABD:Mild osteopenia in the coccyx adjacent to a sacral wound with subcutaneous emphysema. Findings are concerning for cellulitis and possible osteomyelitis. -- Blood culture 1/2: Grew Staphylococcus hominis: Likely contamination --Repeat blood culture pending --Nasal MRSA negative --follows with wound care at [facility] --Continue vancomycin, Zosyn for now --Appreciate surgery input --Plan for excisional debridement of sacral wound today (3) CVA (cerebral vascular accident): Plan: With residual L hemiparesis Continue aspirin, statin (4) Chronic diastolic heart failure: Plan: Appears euvolemic. Continue home lasix, spironolactone (5) Chronic a-fib: Plan: Continue digoxin MWF Holding eliquis in case of OR - heparin gtt for now (6) Mood disorder: Plan: Continue SSRI DVT Px: Heparin gtt Code status: DNR/DNI Admission and Anticipated Discharge Date Admission Date: April 23, 2024 Subjective Patient is seen and examined at bedside Reports sacral wound pain No new complaints today Plan for excisional debridement of sacral wound today Denies any chest pain, dyspnea, nausea, vomiting, abdominal pain Review of Systems Review of Systems: All systems reviewed & are unremarkable except as noted in Subjective Physical Exam Physical Exam: Physical Exam: Vitals signs as noted above General Appearance:Moderately built and nourished, no apparent distress Head: normocephalic, Atraumatic Eyes: normal inspection, EOMI Neck: supple, Trachea midline Respiratory/Chest: Normal breath sounds, CTA, No accessory muscle use Cardiovascular: Irregularly irregular, No murmur Abdomen/GI:Soft, Non tender, Bowel sounds present Extremities/Musculoskeletal:normal inspection,1+ edema Neurologic/Psych:AAOX3, grossly no focal neurological deficits Skin: normal color, warm,+ sacral wound/eschar, purulent fluid Results & Data Results & Data Vital Signs (Past 12 Hours) Vital Signs Temp Pulse Resp BP Pulse Ox O2 Del Method 04/25/24 07:26 36.9 C 72 16 134/98 95 Room Air Laboratory Results Short CBC 04/25/24 Range/Units 09:11 WBC 9.64 (4.8-10.8) K/ul Hgb 12.2 (12.0-16.0) g/dl Hct 36.5 L (37.0-47.0) % Plt Count 396 (130-400) K/uL BMP 04/25/24 09:11 Sodium 141 Potassium 3.8 Chloride 100 Carbon Dioxide 33 H BUN 19 Creatinine 1.09 Glucose 118 H Calcium 8.7 (1) Wound of sacral region Encounter type: initial encounter Qualified Code(s): S31.000A - Unspecified open wound of lower back and pelvis without penetration into retroperitoneum, initial encounter
[2024-04-25 09:50] LABS: Hematocrit (blood only) 36.5 % (37.0-47.0); Hemoglobin 12.2 g/dl (12.0-16.0); Mean Corpuscular Hemoglobin 31.9 pg (25.0-34.0); Mean Corpuscular Hgb Conc 33.4 g/dL (32.0-36.0); Mean Corpuscular Volume 95.5 fL (80.0-100.0); Mean Platelet Volume 10.8 fL (9.4-12.4); Platelet Count 396 K/uL (130-400); RDW Coefficient of Variation 15.3 % (11.5-14.5); RDW Standard Deviation 52.9 fL (36.4-46.3); Red Blood Count 3.82 M/uL (4.20-5.40); White Blood Count 9.64 K/ul (4.8-10.8)
[2024-04-25 09:52] LABS: BUN Creatinine Ratio 17.4 (10-20); Calcium 8.7 mg/dl (8.6-10.3); Creatinine Clr Calc Pharmacy 35.6 ml/min; Potassium 3.8 mmol/L (3.5-5.1)
[2024-04-25] MEDS ORDERED: Nursing to Pharmacy Communication SCH (12:30)
[2024-04-25] MEDS: LR 15ML/HR IV SCH (12:48)
--- NOTE | 2024-04-25 12:51 | Anesthesiology Consultation ---
Date of Service April 25, 2024 Assessment & Plan Chart Review Chart Review: Acceptable Risk for Surgery Consults Requested none History Surgery Operation Date: 04/25/24 08:20 Proposed Procedures p Excisional Debridement of Sacral Wound - Dale Caldwell DO Height/Weight Height: 5 ft 2 in Weight: 66.7 kg Allergies Allergy/AdvReac Type Severity Reaction Status Date / Time ezetimibe AdvReac Intermediate Weakness Verified 10/17/23 20:06 chlorpheniramine AdvReac Mild "Antsy Verified 10/17/23 20:06 [From Chlor-Trimeton] Feeling" Medications Home Medications Medication Instructions Recorded Confirmed Last Taken calcium 600 mg (as 1 tab PO .LUNCH TIME 04/23/19 04/23/24 06/01/23 carbonate)-vitamin D3 5 mcg (200 unit) tablet multivitamin 1 tab PO DAILY 04/23/19 04/23/24 06/01/23 alendronate 70 mg tablet (Fosamax) 70 mg PO FR@0900 04/05/22 04/23/24 09/09/22 spironolactone 25 mg tablet 12.5 mg PO DAILY 05/18/22 04/23/24 09/12/22 aspirin 81 mg tablet,delayed 81 mg PO DAILY 09/12/22 04/23/24 06/01/23 release digoxin 125 mcg (0.125 mg) tablet 125 mcg PO MOWEFR@0900 12/20/22 04/23/24 Unknown melatonin 3 mg tablet 3 mg PO HS PRN Insomnia 12/20/22 04/23/24 Unknown sennosides 8.6 mg tablet (Senokot) 8.6 mg PO BID 12/20/22 04/23/24 06/01/23 pravastatin 80 mg tablet 80 mg PO DAILY 05/18/23 04/23/24 06/01/23 furosemide 40 mg tablet 40 mg PO 4XWK 08/18/23 04/23/24 Unknown apixaban 5 mg tablet (Eliquis) 5 mg PO Q12 10/17/23 04/23/24 Unknown cholecalciferol (vitamin D3) 50 2,000 unit PO DAILY 10/17/23 04/23/24 Unknown mcg (2,000 unit) capsule escitalopram oxalate 5 mg tablet 5 mg PO QAM 10/17/23 04/23/24 Unknown furosemide 40 mg tablet 60 mg PO [id number] 10/17/23 04/23/24 Unknown midodrine 5 mg tablet 5 mg PO BID 10/17/23 04/23/24 Unknown Active Medications Generic Name Dose Route Start Last Admin Trade Name Astrid PRN Reason Stop Dose Admin Acetaminophen 650 mg 04/23/24 19:28 04/24/24 20:57 Acetaminophen 325 Mg Tab PO 05/23/24 19:27 650 mg Q4H PRN Administration pain/fever Aspirin 81 mg 04/24/24 09:00 04/25/24 08:19 Aspirin 81 Mg Ectab PO 05/24/24 08:59 Not Given DAILY REKHA Calcium/Vitamin D 1 tab 04/24/24 11:30 04/25/24 11:29 Calcium 600mg + Vit D 400 Iu Tab PO 05/24/24 11:29 Not Given QDL REKHA Digoxin 0.125 mg 04/24/24 09:00 04/24/24 08:20 Digoxin 0.125 Mg Tab PO 05/24/24 08:59 0.125 mg [id number]@0900 REKHA Administration Escitalopram Oxalate 5 mg 04/24/24 09:00 04/25/24 08:20 Escitalopram Oxalate 10 Mg Tab PO 05/24/24 08:59 Not Given QAM REKHA Furosemide 40 mg 04/25/24 09:00 04/25/24 08:20 Furosemide 40 Mg Tab PO 05/25/24 08:59 Not Given [email or web address]@0900 REKHA Furosemide 60 mg 04/24/24 09:00 04/24/24 08:20 Furosemide 20 Mg Tab PO 05/24/24 08:59 60 mg [email or web address]@0900 REKHA Administration Piperacillin Sod/Tazobactam Sod 4.5 gm in 100 mls @ 25 mls/hr 04/23/24 21:00 04/25/24 09:41 Zosyn IV 04/30/24 20:59 Infused Q8H [facility] Infusion Protocol Heparin Sodium/Dextrose 25,000 units in 500 mls @ 0 mls/hr 04/23/24 21:00 04/25/24 09:57 Heparin Sodium/Dextrose IV 05/23/24 20:59 Not Given .Q0M [facility] Protocol 0 UNITS/HR Vancomycin HCl 1,250 mg/ 275 mls @ 200 mls/hr 04/24/24 01:00 04/25/24 02:58 Sodium Chloride IV 05/01/24 00:59 Infused Q24H [facility] Infusion Lactated Ringer's 1,000 mls @ 15 mls/hr 04/25/24 06:00 04/25/24 12:48 Lr IV 04/26/24 05:59 0 mls/hr .Q24H [facility] Infusion Midodrine 5 mg 04/24/24 08:00 04/25/24 08:19 Midodrine Hcl 2.5 Mg Tab PO 05/24/24 07:59 Not Given BID@0800,1700 REKHA Multivitamins 1 tab 04/24/24 09:00 04/25/24 08:20 Multivitamin Tab PO 05/24/24 08:59 Not Given DAILY REKHA Pravastatin Sodium 80 mg 04/24/24 09:00 04/25/24 08:20 Pravastatin Sod 40 Mg Tab PO 05/24/24 08:59 Not Given DAILY REKHA Sennosides 8.6 mg 04/23/24 21:00 04/25/24 08:20 Senna 8.6 Mg Tab PO 05/23/24 20:59 Not Given BID REKHA Spironolactone 12.5 mg 04/24/24 09:00 04/25/24 08:20 Spironolactone 12.5 Mg Tab PO 05/24/24 08:59 Not Given DAILY REKHA Vitamin D 50 mcg 04/24/24 09:00 04/25/24 08:20 Cholecalciferol 25 Mcg (1000 Units) Tab PO 05/24/24 08:59 Not Given DAILY REKHA NPO Date Last Intake of Fluids: 04/24/24 Time Last Intake of Fluids: 18:00 Date Last Intake of Solids: 04/24/24 Time Last Intake of Solids: 18:00 Past Medical History Medical History Mood disorder Follicular lymphoma grade 3a Atrial fibrillation Neuroendocrine carcinoma of pancreas CVA (cerebral vascular accident) Cardiomyopathy Ventricular ectopy TIA (transient ischemic attack) 2009 - No Deficits Arthritis Past Family History Family History Father , Passed age 88 of Kidney Cancer No problems noted. Mother , Passed age 83 of Alzheimers Disease No problems noted. Brother No problems noted. Sister ALL (acute lymphoblastic leukemia), Onset Age: 66 Now in remission Daughter No problems noted. Son No problems noted. Past Surgical History Surgical History Post-splenectomy History of superficial parotidectomy 01/28/19 - with facial nerve dissection and preservation History of tonsillectomy as a child History of colonoscopy 2018 History of hip replacement, total Left - 2007, Right - 2008 Social History Smoking Status: Unknown if ever smoked Do You Dip or Chew Tobacco: No Hx Alcohol Use: No Hx Substance Use: No substance use type: does not use Physical Exam Vital Signs Last Vital Signs Temp 36.5 C 04/25/24 12:40 Pulse 64 04/25/24 12:40 Resp 16 04/25/24 12:40 BP 119/85 04/25/24 12:40 Pulse Ox 98 04/25/24 12:40 O2 Del Method Room Air 04/25/24 12:40 Testing Laboratory Results 04/25/24 09:11 04/25/24 09:11 PT 12.4 Seconds (9.0-12.0) H 04/23/24 21:42 INR 1.2 (0.9-1.1) H 04/23/24 21:42 APTT 29 Seconds (21-31) 04/23/24 21:42 Urine Color Yellow 04/24/24 11:45 Urine Appearance Clear (Clear) 04/24/24 11:45 Urine pH 6.5 (4.5-7.5) 04/24/24 11:45 Ur Specific [place] 1.042 (1.000-1.030) H 04/24/24 11:45 Urine Protein Negative (Negative) 04/24/24 11:45 Urine Glucose (UA) Negative (Negative) 04/24/24 11:45 Urine Ketones 1+ (Negative) H 04/24/24 11:45 Urine Nitrite Negative (Negative) 04/24/24 11:45 Ur Leukocyte Esterase Negative (Negative) 04/24/24 11:45 04/23/24 14:15 Gram Stain - Final Sacrum Wound Culture - Final Moderate counts mixed probable skin microbiota. No further identifications or sensitivities to follow. 04/23/24 14:31 Aerobic Blood Culture - Preliminary Blood Staphylococcus hominis Anaerobic Blood Culture - Preliminary No growth in Anaerobic bottle after 24 hours.
[2024-04-25] MEDS ORDERED: ePHEDrine sulfate 50 MG/ML AMP IV PRN (13:16)
[2024-04-25] MEDS ORDERED: ONDANSETRON INJ 2 MG/ML 2 ML VIAL IV PRN (13:16)
[2024-04-25] MEDS ORDERED: fentaNYL citrate PF 100 MCG/2 ML VIAL IV PRN (13:16)
[2024-04-25] MEDS ORDERED: ATROPINE SULFATE 0.1 MG/ML 10ML SYR IV PRN (13:16)
[2024-04-25] MEDS ORDERED: HYDROmorphone INJ 2 MG/ML SYR/VIAL IV PRN (13:16)
[2024-04-25] MEDS ORDERED: PROMETHAZINE HCL 6.25 MG in SODIUM CHLORIDE 0.9% 50 ML IV PRN (13:16)
[2024-04-25] MEDS ORDERED: PROPOFOL IV EMULSION 10 MG/ML 20 ML VIAL IV ONE (13:52)
[2024-04-25] MEDS ORDERED: LIDOCAINE 2% 2 ML VIAL/AMP(20MG/ML) INFIL ONE (13:52)
[2024-04-25] MEDS ORDERED: ONDANSETRON INJ 2 MG/ML 2 ML VIAL ONE (14:09)
[2024-04-25] MEDS ORDERED: fentaNYL citrate PF 100 MCG/2 ML VIAL ONE (14:09)
[2024-04-25] MEDS ORDERED: DEXAMETHASONE SOD INJ 4 MG/ML VIAL ONE (14:09)
[2024-04-25] MEDS ORDERED: ROCURONIUM BROMIDE 10 MG/ML 5 ML VIAL IV ONE (14:09)
--- NOTE | 2024-04-25 14:18 | Surgery Progress Note ---
Date of Service April 25, 2024 Assessment & Plan (1) Wound of sacral region: Plan: Proceed with excisional debridement of the sacral wound in the operating room Consent was obtained from her daughter and the risks were discussed including bleeding, infection, nonhealing wound Admission and Anticipated Discharge Date Admission Date: April 23, 2024 Subjective Patient seen and examined. No acute events overnight. Afebrile. Heparin drip has been off since 6 AM. Review of Systems Constitutional: no fever and no chills Eyes: no blind spots and no worsening vision Ear, Nose, Mouth, Throat: no ear pain and no hearing loss Respiratory: no cough and no dyspnea Cardiovascular: no chest pain and no dyspnea on exertion Gastrointestinal: no abdominal pain, no nausea and no vomiting Genitourinary: no dysuria and no urinary urgency Musculoskeletal: no back pain and no neck pain Integumentary: + skin ulcer and + wounds; no acne Neurologic: + confusion and + memory loss; no headac he(s) Psychiatric: no behavioral changes and no depression Hematologic / Lymphatic: + easy bleeding; no easy bruising On Eliquis Physical Exam Constitutional: WD/WN, vitals as above Eyes: PERRL, conjunctivae normal, anicteric sclerae ENMT: external ear and nose normal, oropharynx normal Neck: trachea midline, no thyromegaly Respiratory: normal respiratory effort, lungs clear to auscultation Cardiovascular: RRR, no murmur, no edema Gastrointestinal (Abdomen): normal bowel sounds, soft, nontender, no hepatosplenomegaly Musculoskeletal: no cyanosis or clubbing, extremities motor strength 5/5 Skin: no rashes, warm and dry 5 cm x 5 cm sacral wound/eschar at the s acral area with purulent fluid able to be expressed from the wound/eschar Neurologic: PERRL, EOMI, accommodation nl, no face palsy, no dysarthria Psychiatric: A+Ox3, euthymic affect Results & Data Vital Signs (Past 12 Hours) Vital Signs Temp Pulse Resp BP Pulse Ox O2 Del Method 04/25/24 12:40 36.5 C 64 16 119/85 98 Room Air 04/25/24 07:26 36.9 C 72 16 134/98 95 Room Air PG Care Time/CCT Total # of Minutes Spent Total Time Spent with Patient: Total time spent is greater than 50% in coordination of care (as documented) at patient's floor/unit and/or counseling patient: Coding Level of Care Code 74460 SUB INP/OBS CARE 05/25MIN Diagnoses Wound of sacral region, initial encounter S31.000A Encounter type: initial encounter (1) Wound of sacral region Encounter type: initial encounter Qualified Code(s): S31.000A - Unspecified open wound of lower back and pelvis without penetration into retroperitoneum, initial encounter
[2024-04-25] MEDS ORDERED: SUGAMMADEX SODIUM 200 MG/2 ML VIAL IV ONE (15:17)
[2024-04-25] MEDS ORDERED: PHENYLEPHRINE 100MCG/ML 5ML SYR ONE (15:18)
[2024-04-25] MEDS: BUPIVACAINE/EPINEPHRINE 0.5% MPF 1:200,000 30 ML VIAL ONE (15:33)
--- NOTE | 2024-04-25 15:37 | Post Operative Brief Note ---
PG Immediate Post Op with CF Date of Surgery April 25, 2024 Pre & Post Diagnosis Operation Date: 04/25/24 08:20 Pre-Op Diagnosis: Wound of sacral region Post-Op Diagnosis: Wound of sacral region I identified the patient and participated in the time-out.: Yes Procedure Operation Date: 04/25/24 08:20 Actual Procedures p Excisional Debridement of Sacral ulcer down to the bone of 28cm2 (Not Applicable) - Dale Caldwell DO Surgeon Dale Caldwell DO Help Desk Assistant Sheryl Kenney PA-C Estimated Blood Loss 10 Findings Consistent with Post-Op Diagnosis Specimens Specimen Description: 1. Sacral wound culture 2. Sacrum bone culture Anesthesia Type General Complications none Disposition Disposition: Recovery Room
--- NOTE | 2024-04-25 15:37 | Operative Report ---
PG Post Operative Report Pre & Post Diagnosis Operation Date: 04/25/24 08:20 Pre-Op Diagnosis: Wound of sacral region Post-Op Diagnosis: Wound of sacral region 7cm x 4cm I identified the patient and participated in the time-out.: Yes Procedure Operation Date: 04/25/24 08:20 Actual Procedures p Excisional Debridement of Sacral ulcer down to the bone of 28cm2 (Not Applicable) - Dale Caldwell DO Surgeon Dale Caldwell DO Television [employer] Producer Sheryl Kenney PA-C Estimated Blood Loss 10 Findings Consistent with Post-Op Diagnosis Specimens 1. Sacral wound culture 2. Sacrum bone culture Drains None Anesthesia Type General Complications none Disposition Disposition: Recovery Room Indications 83-year-old female with an unstageable sacral ulcer Description of Procedure The patient was brought to the operating room and underwent general endotracheal anesthesia without issue. At this time the patient was placed in the prone jackknife position. The sacral area was prepped and draped in the usual sterile fashion. Appropriate pre-operative antibiotics were administered. A timeout was called. The procedure was verified as Excisional debridement of sacral ulcer. Surgical, anesthesia and nursing teams agreed and the procedure was begun. The sacral wound was explored and had undermining inferiolaterally. The skin and subcutaneous tissue that made up the wound was excised using a #15 blade scalpel so that the undermining was no longer present and healthy bleeding tissue was encountered. The overlying skin and eschar and necrotic subcutaneous tissue blade scalpel. This was sent for culture. At the base of the wound, there was a small portion of sacral present and exposed. Using a rongeur, a portion of the exposed sacrum was debrided and sent for culture. All necrotic tissue was debrided. The wound was irrigated until clear. At this time hemostasis was achieved using electrocautery. Hemostasis was complete. At this time the incision was dressed with Aquacel Ag and gauze as well as ABD pad. This represents an excisional debridement of 28 cm down to bone. At this time the patient was awakened from anesthesia and extubated having remained stable throughout the entire case and transported to PACU in stable condition. The physician podiatric assistant was present and scrubbed for the entire case. She was essential in positioning, prepping and draping the patient, retraction and exposure, placement of the dressing. I attest to the content of the Intraoperative Record and any orders documented therein. Any exceptions are noted below.
--- NOTE | 2024-04-25 16:41 | Anesthesiology Progress Note ---
Date of Service April 25, 2024 Anesthesia Post Procedure Vital Signs Vital Signs: Temp Pulse Pulse Resp BP BP Pulse Ox 04/25/24 16:20 36.7 C 101 H 12 112/50 L 97 04/25/24 16:10 100 H 16 104/60 100 04/25/24 16:00 95 H 12 87/69 L 100 04/25/24 15:53 36.4 C L 95 H 13 114/68 100 04/25/24 12:40 36.5 C 64 16 119/85 98 04/25/24 07:26 36.9 C 72 16 134/98 95 04/24/24 20:58 36.8 C 91 H 18 116/81 93 04/24/24 18:08 92 H 117/80 O2 Del Method O2 Flow Rate 04/25/24 16:20 Room Air 0 04/25/24 16:10 Oxymask 4 04/25/24 16:00 Oxymask 4 04/25/24 15:53 Oxymask 8 04/25/24 12:40 Room Air 04/25/24 07:26 Room Air 04/24/24 20:58 Room Air 04/24/24 18:08 Transfer of Care Handoff Completed per policy Notes Mental Status: alert / awake / arousable and participated in evaluation Patient Amnestic to Procedure: Yes Nausea / Vomiting: adequately controlled Pain: adequately controlled Airway Patency, RR, SpO2: stable & adequate BP & HR: stable & adequate Hydration State: stable & adequate Anesthetic Complications: no major complications apparent
[2024-04-25] MEDS ORDERED: MoRPHine SULFATE 2 MG/ML CARP IV PRN (16:59)
[2024-04-25] MEDS ORDERED: oxyCODONE HCL IR 5 MG TAB (IMMEDIATE RELEASE) PO PRN ×2 (16:59)
[2024-04-26 06:47] LABS: Basophils # (auto) 0.02 K/uL (0.00-0.20); Basophils % (auto) 0.2 %; Eosinophils # (auto) 0.01 K/uL (0.00-0.50); Eosinophils % (auto) 0.1 %; Hematocrit (blood only) 36.1 % (37.0-47.0); Hemoglobin 11.8 g/dl (12.0-16.0); Immature Granulocytes # (auto) 0.06 K/uL (0.01-0.20); Immature Granulocytes % (auto) 0.6 %; Lymphocytes # (auto) 0.92 K/uL (1.20-3.40); Lymphocytes % (auto) 8.9 %; Mean Corpuscular Hemoglobin 31.7 pg (25.0-34.0); Mean Corpuscular Hgb Conc 32.7 g/dL (32.0-36.0); Mean Platelet Volume 10.6 fL (9.4-12.4); Monocytes # (auto) 0.48 K/uL (0.11-0.59); Monocytes % (auto) 4.6 %; Neutrophils # (auto) 8.87 K/uL (1.40-6.50); Neutrophils % (auto) 85.6 %; Platelet Count 358 K/uL (130-400); RDW Coefficient of Variation 15.6 % (11.5-14.5); RDW Standard Deviation 55.1 fL (36.4-46.3); Red Blood Count 3.72 M/uL (4.20-5.40); White Blood Count 10.36 K/ul (4.8-10.8)
[2024-04-26 07:03] LABS: Calcium 8.4 mg/dl (8.6-10.3); Potassium 4.2 mmol/L (3.5-5.1)
[2024-04-26 07:08] LABS: BUN Creatinine Ratio 21.6 (10-20)
--- NOTE | 2024-04-26 08:09 | Surgery Progress Note ---
Date of Service April 26, 2024 Assessment & Plan (1) Wound of sacral region: Plan: POD#1 debridement of sacral wound WBC 10.3, Hbg 11.8 (12). Vitals are stable Cxs have been sent (both tissue and bone to follow up upon and adjust abx accordingly) Dressing remained intact overnight & she offers no complaints Wound care consult ordered for evaluation of wound and dressing recommendations (vac vs otherwise) If wound bed clean without active areas of bleeding she may resume her blood thinners Pt may f/u in the wound care center upon discharge We will follow peripherally, but may call with any questions/concerns Admission and Anticipated Discharge Date Admission Date: April 23, 2024 Subjective Patient with no complaints this AM regarding sacral debridement. Dressing remained intact overnight. Her pain is controlled. Physical Exam Physical Exam: was resting, but arousable and communicative Skin: sacral dressing in place Results & Data Vital Signs (Past 12 Hours) Vital Signs Temp Pulse Resp BP Pulse Ox O2 Del Method 04/26/24 03:51 98.6 F 87 16 115/78 93 Room Air 04/25/24 22:50 84 15 111/80 92 Room Air 04/25/24 22:49 97.5 F L PG Care Time/CCT Total # of Minutes Spent Total Time Spent with Patient: Total time spent is greater than 50% in coordination of care (as documented) at patient's floor/unit and/or counseling patient: Coding Level of Care Code 61181 Post Operative Follow-Up Diagnoses Wound of sacral region, initial encounter S31.000A Encounter type: initial encounter (1) Wound of sacral region Encounter type: initial encounter Qualified Code(s): S31.000A - Unspecified open wound of lower back and pelvis without penetration into retroperitoneum, initial encounter
[2024-04-26] MEDS: ALENDRONATE SODIUM 70 MG TAB PO SCH (09:29)
--- NOTE | 2024-04-26 14:03 | Pharmacy Report ---
Pharmacy PK ABX Note - Date of Service April 26, 2024 - Assessment and Plan Assessment 04/26: * Vanco level drawn today was 19.5mcg/mL (this extrapolates to an AUC24 of 547mg/L.hr). She is to remain on vancomycin 1250mg iv q 24 hours. * POD #1 debridement of sacral wound * Blood culture from 04/23 grew S. hominus (vanco RAFI=0.5) and Sacrum culture from 04/25 grew Strep anginosus (no S to follow). Sacrum culture from 04/23 and blood cultures from 04/25 show no growth to date. * Wbc have been within normal range and pt has been afebrile. 04/24: * 83 year old F receiving vancomycin/zosyn for treatment of sacral wound infection, plan for OR on 04/25. Blood culture aerobic bottle with staph sp. (likely coag negative staph), anaerobic bottle currently negative. Sacrum culture prelim with moderate mixed skin microbiota Plan Vancomycin * Continue maintenance dose: 1250 mg IV every 24 hours * Regimen has achieved target AUC/RAFI of 400-600 mg/L.hr * Another random level with be ordered in the next 3-4 days or sooner if clinically necessary Pharmacy will continue to follow and will adjust dose/frequency as necessary. Thank you. Pharmacy has transitioned to AUC monitoring for vancomycin. AUC/RAFI is the preferred PK/PD target and is associated with decreased risk of nephrotoxicity compared to traditional trough targets.
--- NOTE | 2024-04-26 15:45 | Hospitalist Progress Note ---
Date of Service April 26, 2024 Assessment & Plan (1) Wound of sacral region: (2) Wound infection: Plan: Patient is an 83 yr female resident of [facility] with a PMH of history of CVA with left hemiparesis, known sacral wound, chronic atrial fibrillation on anticoagulation, frequent ventricular ectopy, chronic diastolic heart failure (EF: 55% 2023), nocturnal hypoxia and mild MARGARET with oxygen HS, dyslipidemia with statin intolerance, h/p pancreatic tumor s/p distal pancreatectomy/splenectomy, CKD III, lymphoma, history of breast cancer and other medical problems who presents from [facility] with worsening appearance of sacral wound. Necrotic Sacral wound/Cellulitis Possible osteomyelitis Pressure ulcer of sacral region, stage 4, POA S/P excisional debridement of sacral ulcer by Dr. Dale Caldwell on 04/25/2024 Abnormal blood cultures Care complicated by left hemiparesis following CVA, limited mobility --CT ABD:Mild osteopenia in the coccyx adjacent to a sacral wound with subcutaneous emphysema. Findings are concerning for cellulitis and possible osteomyelitis. -- Blood culture 1/2: Grew Staphylococcus hominis: Likely contamination --Repeat blood cultures: No growth to date --Preliminary wound cultures growing Streptococcus anginosus --Nasal MRSA negative --follows with wound care at [facility] --Continue vancomycin, Zosyn for now --Appreciate surgery input -- Infectious disease consulted Follow-up cultures and adjust antibiotics as able Continue wound care (3) CVA (cerebral vascular accident): Plan: With residual L hemiparesis Continue aspirin, statin (4) Chronic diastolic heart failure: Plan: Appears euvolemic. Continue home lasix, spironolactone (5) Chronic a-fib: Plan: Continue digoxin MWF Resume Eliquis for anticoagulation--discussed with surgery on 04/26/2024 (6) Mood disorder: Plan: Continue SSRI DVT Px: Eliquis Code status: DNR/DNI Admission and Anticipated Discharge Date Admission Date: April 23, 2024 Subjective Patient is seen and examined at bedside Sacral wound pain is controlled Offers no new complaints Denies any chest pain, dyspnea, nausea, vomiting, abdominal pain Wound cultures growing Streptococcus anginosus Review of Systems Review of Systems: All systems reviewed & are unremarkable except as noted in Subjective Physical Exam Physical Exam: Physical Exam: Vitals signs as noted above General Appearance:Moderately built and nourished, no apparent distress Head: normocephalic, Atraumatic Eyes: normal inspection, EOMI Neck: supple, Trachea midline Respiratory/Chest: Normal breath sounds, CTA, No accessory muscle use Cardiovascular: Irregularly irregular, No murmur Abdomen/GI:Soft, Non tender, Bowel sounds present Extremities/Musculoskeletal:normal inspection,1+ edema Neurologic/Psych:AAOX3, grossly no focal neurological deficits Skin: normal color, warm,+ sacral wound/eschar, purulent fluid Results & Data Results & Data Vital Signs (Past 12 Hours) Vital Signs Temp Pulse Pulse Resp BP BP Pulse Ox 04/26/24 15:06 36.6 C 91 H 18 95/61 L 93 04/26/24 11:42 36.4 C L 70 18 97/65 L 93 04/26/24 09:31 94 H 04/26/24 08:02 36.6 C 79 18 106/72 90 04/26/24 03:51 37.0 C 87 16 115/78 93 O2 Del Method 04/26/24 15:06 Room Air 04/26/24 11:42 Room Air 04/26/24 09:31 04/26/24 08:02 Room Air 04/26/24 03:51 Room Air Laboratory Results Short CBC 04/26/24 Range/Units 06:03 WBC 10.36 (4.8-10.8) K/ul Hgb 11.8 L (12.0-16.0) g/dl Hct 36.1 L (37.0-47.0) % Plt Count 358 (130-400) K/uL BMP 04/26/24 06:03 Sodium 140 Potassium 4.2 Chloride 102 Carbon Dioxide 33 H BUN 24 H Creatinine 1.11 Glucose 120 H Calcium 8.4 L (1) Wound of sacral region Encounter type: initial encounter Qualified Code(s): S31.000A - Unspecified open wound of lower back and pelvis without penetration into retroperitoneum, initial encounter
[2024-04-26] MEDS: APIXABAN 5 MG TABLET PO SCH (21:09)
--- NOTE | 2024-04-27 16:28 | Hospitalist Progress Note ---
Date of Service April 27, 2024 Assessment & Plan (1) Wound of sacral region: (2) Wound infection: Plan: Patient is an 83 yr female resident of [facility] with a PMH of history of CVA with left hemiparesis, known sacral wound, chronic atrial fibrillation on anticoagulation, frequent ventricular ectopy, chronic diastolic heart failure (EF: 55% 2023), nocturnal hypoxia and mild MARGARET with oxygen HS, dyslipidemia with statin intolerance, h/p pancreatic tumor s/p distal pancreatectomy/splenectomy, CKD III, lymphoma, history of breast cancer and other medical problems who presents from [facility] with worsening appearance of sacral wound. Necrotic Sacral wound/Cellulitis Possible osteomyelitis Pressure ulcer of sacral region, stage 4, POA S/P excisional debridement of sacral ulcer by Dr. Dale Caldwell on 04/25/2024 Abnormal blood cultures Care complicated by left hemiparesis following CVA, limited mobility --CT ABD:Mild osteopenia in the coccyx adjacent to a sacral wound with subcutaneous emphysema. Findings are concerning for cellulitis and possible osteomyelitis. -- Blood culture 1/2: Grew Staphylococcus hominis: Likely contamination --Repeat blood cultures: No growth to date --Preliminary wound cultures growing Streptococcus anginosus, bacteroids fragilis --Nasal MRSA negative --follows with wound care at [facility] --Continue vancomycin, Zosyn for now --Appreciate surgery input -- Infectious disease consulted--await input Continue wound care/ Wound VAC Titrate antibiotics once cultures finalized (3) CVA (cerebral vascular accident): Plan: With residual L hemiparesis Continue aspirin, statin (4) Chronic diastolic heart failure: Plan: Appears euvolemic. Continue home lasix, spironolactone (5) Chronic a-fib: Plan: Continue digoxin MWF Resume Eliquis for anticoagulation--discussed with surgery on 04/26/2024 (6) Mood disorder: Plan: Continue SSRI DVT Px: Eliquis Code status: DNR/DNI Admission and Anticipated Discharge Date Admission Date: April 23, 2024 Subjective Patient is seen and examined at bedside Denies any sacral wound pain today No other complaints Updated patient's daughter over the phone Denies any chest pain, dyspnea, nausea, vomiting, abdominal pain Review of Systems Review of Systems: All systems reviewed & are unremarkable except as noted in Subjective Physical Exam Physical Exam: Physical Exam: Vitals signs as noted above General Appearance:Moderately built and nourished, no apparent distress Head: normocephalic, Atraumatic Eyes: normal inspection, EOMI Neck: supple, Trachea midline Respiratory/Chest: Normal breath sounds, CTA, No accessory muscle use Cardiovascular: Irregularly irregular, No murmur Abdomen/GI:Soft, Non tender, Bowel sounds present Extremities/Musculoskeletal:normal inspection,1+ edema Neurologic/Psych:AAOX3, grossly no focal neurological deficits Skin: normal color, warm,+ sacral wound/eschar, purulent fluid Results & Data Results & Data Vital Signs (Past 12 Hours) Vital Signs Temp Pulse Resp BP Pulse Ox O2 Del Method 04/27/24 14:19 36.4 C L 66 16 91/54 L 94 Room Air 04/27/24 07:48 36.4 C L 70 16 110/77 92 Room Air (1) Wound of sacral region Encounter type: initial encounter Qualified Code(s): S31.000A - Unspecified open wound of lower back and pelvis without penetration into retroperitoneum, initial encounter
[2024-04-27] MEDS: MIDODRINE HCL 2.5 MG TAB PO STA (20:31)
[2024-04-27 21:17] LABS: Basophils # (auto) 0.03 K/uL (0.00-0.20); Basophils % (auto) 0.4 %; Eosinophils # (auto) 0.24 K/uL (0.00-0.50); Eosinophils % (auto) 3.3 %; Hematocrit (blood only) 33.5 % (37.0-47.0); Hemoglobin 11.3 g/dl (12.0-16.0); Immature Granulocytes # (auto) 0.04 K/uL (0.01-0.20); Immature Granulocytes % (auto) 0.5 %; Lymphocytes # (auto) 1.25 K/uL (1.20-3.40); Lymphocytes % (auto) 17.1 %; Mean Corpuscular Hemoglobin 32.4 pg (25.0-34.0); Mean Corpuscular Hgb Conc 33.7 g/dL (32.0-36.0); Mean Platelet Volume 10.7 fL (9.4-12.4); Monocytes # (auto) 0.66 K/uL (0.11-0.59); Neutrophils # (auto) 5.09 K/uL (1.40-6.50); Neutrophils % (auto) 69.7 %; Platelet Count 391 K/uL (130-400); RDW Coefficient of Variation 15.6 % (11.5-14.5); RDW Standard Deviation 55.1 fL (36.4-46.3); Red Blood Count 3.49 M/uL (4.20-5.40); White Blood Count 7.31 K/ul (4.8-10.8)
[2024-04-27] MEDS: PLASMA-LYTE A 1,000 ML IV ONE (21:26)
[2024-04-27 21:31] LABS: BUN Creatinine Ratio 23.2 (10-20); Calcium 8.4 mg/dl (8.6-10.3); Creatinine Clr Calc Pharmacy 34.7 ml/min; Potassium 4.2 mmol/L (3.5-5.1)
[2024-04-27 21:39] LABS: Partial Thromboplastin Time 28 Seconds (21-31)
[2024-04-28 06:20] LABS: Hematocrit (blood only) 33.8 % (37.0-47.0); Hemoglobin 11.2 g/dl (12.0-16.0); Mean Corpuscular Hemoglobin 32.1 pg (25.0-34.0); Mean Corpuscular Hgb Conc 33.1 g/dL (32.0-36.0); Mean Corpuscular Volume 96.8 fL (80.0-100.0); Mean Platelet Volume 10.8 fL (9.4-12.4); Platelet Count 381 K/uL (130-400); RDW Coefficient of Variation 14.5 % (11.5-14.5); RDW Standard Deviation 51.7 fL (36.4-46.3); Red Blood Count 3.49 M/uL (4.20-5.40); White Blood Count 6.66 K/ul (4.8-10.8)
[2024-04-28 06:37] LABS: Calcium 8.1 mg/dl (8.6-10.3); Potassium 3.9 mmol/L (3.5-5.1)
[2024-04-28] MEDS: MIDODRINE HCL 2.5 MG TAB PO SCH (09:12)
[2024-04-28 11:31] LABS: Creatinine Clr Calc Pharmacy 44.7 ml/min
[2024-04-28 11:33] LABS: BUN Creatinine Ratio 26.4 (10-20)
--- NOTE | 2024-04-28 15:50 | Hospitalist Progress Note ---
Date of Service April 28, 2024 Assessment & Plan (1) Wound of sacral region: (2) Wound infection: Plan: Patient is an 83 yr female resident of [facility] with a PMH of history of CVA with left hemiparesis, known sacral wound, chronic atrial fibrillation on anticoagulation, frequent ventricular ectopy, chronic diastolic heart failure (EF: 55% 2023), nocturnal hypoxia and mild MARGARET with oxygen HS, dyslipidemia with statin intolerance, h/p pancreatic tumor s/p distal pancreatectomy/splenectomy, CKD III, lymphoma, history of breast cancer and other medical problems who presents from [facility] with worsening appearance of sacral wound. Necrotic Sacral wound/Cellulitis Possible osteomyelitis Pressure ulcer of sacral region, stage 4, POA S/P excisional debridement of sacral ulcer by Dr. Dale Caldwell on 04/25/2024 Abnormal blood cultures Care complicated by left hemiparesis following CVA, limited mobility --CT ABD:Mild osteopenia in the coccyx adjacent to a sacral wound with subcutaneous emphysema. Findings are concerning for cellulitis and possible osteomyelitis. -- Blood culture 1/2: Grew Staphylococcus hominis --Repeat blood cultures: No growth to date --Preliminary wound cultures growing Streptococcus anginosus, bacteroids fragilis, Peptoniphilus pacaensis --Nasal MRSA negative --follows with wound care at [facility] --Continue vancomycin, Zosyn for now --Appreciate surgery input -- Infectious disease consulted Continue wound care/ Wound VAC Titrate antibiotics once cultures finalized Awaiting ID input Will need rehab placement on discharge (3) CVA (cerebral vascular accident): Plan: With residual L hemiparesis Continue aspirin, statin (4) Chronic diastolic heart failure: Plan: Appears euvolemic. Continue home lasix, spironolactone (5) Chronic a-fib: Plan: Continue digoxin MWF Resume Eliquis for anticoagulation--discussed with surgery on 04/26/2024 (6) Mood disorder: Plan: Continue SSRI DVT Px: Eliquis Code status: DNR/DNI Admission and Anticipated Discharge Date Admission Date: April 23, 2024 Subjective Patient is seen and examined at bedside Was uncomfortable due to positioning and sacral wound site during my encounter Offers no other complaints today Denies any chest pain, dyspnea, nausea, vomiting, abdominal pain Review of Systems Review of Systems: All systems reviewed & are unremarkable except as noted in Subjective Physical Exam Physical Exam: Physical Exam: Vitals signs as noted above General Appearance:Moderately built and nourished, no apparent distress Head: normocephalic, Atraumatic Eyes: normal inspection, EOMI Neck: supple, Trachea midline Respiratory/Chest: Normal breath sounds, CTA, No accessory muscle use Cardiovascular: Irregularly irregular, No murmur Abdomen/GI:Soft, Non tender, Bowel sounds present Extremities/Musculoskeletal:normal inspection,1+ edema Neurologic/Psych:AAOX3, grossly no focal neurological deficits Skin: normal color, warm,+ sacral wound/eschar, purulent fluid Results & Data Results & Data Vital Signs (Past 12 Hours) Vital Signs Temp Pulse Resp BP Pulse Ox O2 Del Method 04/28/24 14:56 37.0 C 70 17 114/79 95 Room Air 04/28/24 07:16 36.7 C 67 16 110/70 93 Room Air Laboratory Results Short CBC 04/27/24 04/28/24 Range/Units 20:41 05:38 WBC 7.31 6.66 (4.8-10.8) K/ul Hgb 11.3 L 11.2 L (12.0-16.0) g/dl Hct 33.5 L 33.8 L (37.0-47.0) % Plt Count 391 381 (130-400) K/uL BMP 04/27/24 04/28/24 20:41 05:38 Sodium 139 139 Potassium 4.2 3.9 Chloride 99 102 Carbon Dioxide 37 H 31 BUN 26 H 23 Creatinine 1.12 0.87 Glucose 126 H 103 H Calcium 8.4 L 8.1 L (1) Wound of sacral region Encounter type: initial encounter Qualified Code(s): S31.000A - Unspecified open wound of lower back and pelvis without penetration into retroperitoneum, initial encounter
[2024-04-29 09:56] LABS: Creatinine Clr Calc Pharmacy 45.2 ml/min
--- NOTE | 2024-04-29 12:20 | Pharmacy Report ---
Pharmacy PK ABX Note - Date of Service April 29, 2024 - Assessment and Plan Assessment 04/29: Reviewed vancomycin level, predicting therapeutic AUC/RAFI. Sacrum culture now growing B. Fragilis, Streptococcus angiosus, and peptoniphilus pacaensis. ID consult pending. Continue current regimen. Serum creatinine stable. 04/26: * Vanco level drawn today was 19.5mcg/mL (this extrapolates to an AUC24 of 547mg/L.hr). She is to remain on vancomycin 1250mg iv q 24 hours. * POD #1 debridement of sacral wound * Blood culture from 04/23 grew S. hominus (vanco RAFI=0.5) and Sacrum culture from 04/25 grew Strep anginosus (no S to follow). Sacrum culture from 04/23 and blood cultures from 04/25 show no growth to date. * Wbc have been within normal range and pt has been afebrile. 04/24: * 83 year old F receiving vancomycin/zosyn for treatment of sacral wound infection, plan for OR on 04/25. Blood culture aerobic bottle with staph sp. (likely coag negative staph), anaerobic bottle currently negative. Sacrum culture prelim with moderate mixed skin microbiota Plan Vancomycin * Continue maintenance dose: 1250 mg IV every 24 hours * Regimen has achieved target AUC/RAFI of 400-600 mg/L.hr * Another random level with be ordered in the next 3-4 days or sooner if clinically necessary Pharmacy will continue to follow and will adjust dose/frequency as necessary. Thank you. Pharmacy has transitioned to AUC monitoring for vancomycin. AUC/RAFI is the pref erred PK/PD target and is associated with decreased risk of nephrotoxicity compared to traditional trough targets.
--- NOTE | 2024-04-29 14:33 | Infectious Disease Consult ---
Date of Service April 29, 2024 Telehealth Information I performed this visit using a real-time telehealth connection between my location and the patients location ([facility]). After connecting through interactive tele-video, patient was identified by name and date of and/or wristband check.Patient (or authorized healthcare leather goods sales representative) was informed that this was a telemedicine visit and it was being conducted confidentially over secure lines. My office door was closed and no one else was present in the room with me.Patient (or authorized healthcare leather goods sales representative) provided consent to proceed with the visit, expressed an understanding of privacy and security of the telemedicine visit, and gave permission to have a hospital leather goods sales representative in the room in order to assist with the visit and to conduct portions of the visit, as needed. I informed the patient (or authorized healthcare leather goods sales representative) that I reviewed their record and presented the opportunity for them to ask any questions regarding the visit today. The patient agreed to participate. Assessment & Plan (1) Pressure injury, stage 4, with infection: (2) Osteoarthritis of sacrum: (3) Status post incision and drainage: (4) Bedridden: (5) History of CVA (cerebrovascular accident): Plan Please discontinue all current antibiotics and start on IV Unasyn. She will require 6 weeks of IV Unasyn with anticipated end date of June 06, 2024. She will require weekly BMP and CBC until the end of IV therapy. Please set up an appointment for her in our clinic within 8 weeks of discharge. Thank you for consulting Infectious Disease. We will sign off for now. History of Present Illness History of Present Illness Ms. Perez is a 83-year-old woman with medical history of CVA with residual left-sided weakness (and bedridden), chronic stage IV sacral pressure ulcer, persistent AFib, diastolic heart failure, obstructive sleep apnea with oxygen during the night, stage III CKD, history of pancreatic cancer status post distal pancreatectomy and splenectomy, history of lymphoma and history of breast cancer who was admitted to [facility] on 04/23 because of suspected infection of sacral pressure ulcer noticed by staff at her longterm. On presentation, she was afebrile but tachycardic. Initial blood workup was not impressive and CT scan of the abdomen and pelvis showed mild osteopenia in the coccygeal area adjacent to the sacral wound with subcutaneous emphysema concerning for cellulitis and possible osteomyelitis. She was eventually taken by the surgical team for I&D of the pressure wound on 04/25/2024. ID team was consulted for further recommendations and to help guide antibiotic treatment. Allergies Allergy/AdvReac Type Severity Reaction Status Date / Time ezetimibe AdvReac Intermediate Weakness Verified 10/17/23 20:06 chlorpheniramine AdvReac Mild "Antsy Verified 10/17/23 20:06 [From Chlor-Trimeton] Feeling" Home Medications Medication Instructions Recorded Confirmed Type calcium 600 mg (as 1 tab PO .LUNCH TIME 04/23/19 04/23/24 History carbonate)-vitamin D3 5 mcg (200 unit) tablet multivitamin 1 tab PO DAILY 04/23/19 04/23/24 History alendronate 70 mg tablet (Fosamax) 70 mg PO FR@0900 04/05/22 04/23/24 History spironolactone 25 mg tablet 12.5 mg PO DAILY 05/18/22 04/23/24 History aspirin 81 mg tablet,delayed 81 mg PO DAILY 09/12/22 04/23/24 History release digoxin 125 mcg (0.125 mg) tablet 125 mcg PO MOWEFR@0900 12/20/22 04/23/24 History melatonin 3 mg tablet 3 mg PO HS PRN Insomnia 12/20/22 04/23/24 History sennosides 8.6 mg tablet (Senokot) 8.6 mg PO BID 12/20/22 04/23/24 History pravastatin 80 mg tablet 80 mg PO DAILY 05/18/23 04/23/24 History furosemide 40 mg tablet 40 mg PO 4XWK 08/18/23 04/23/24 History apixaban 5 mg tablet (Eliquis) 5 mg PO Q12 10/17/23 04/23/24 History cholecalciferol (vitamin D3) 50 2,000 unit PO DAILY 10/17/23 04/23/24 History mcg (2,000 unit) capsule escitalopram oxalate 5 mg tablet 5 mg PO QAM 10/17/23 04/23/24 History furosemide 40 mg tablet 60 mg PO 3XWK 10/17/23 04/23/24 History midodrine 5 mg tablet 5 mg PO BID 10/17/23 04/23/24 History Patient History Medical History (Updated 04/29/24 @ 14:33 by Romaine Parkinson MD) Mood disorder Follicular lymphoma grade 3a Atrial fibrillation Neuroendocrine carcinoma of pancreas CVA (cerebral vascular accident) Cardiomyopathy Ventricular ectopy TIA (transient ischemic attack) 2009 - No Deficits Arthritis Surgical History (Updated 04/29/24 @ 14:33 by Romaine Parkinson MD) S/P debridement (04/25/24) Excisional Debridement of Sacral ulcer down to the bone of 28cm2 (Not Applicable) - Dale Caldwell DO Post-splenectomy History of superficial parotidectomy 01/28/19 - with facial nerve dissection and preservation History of tonsillectomy as a child History of colonoscopy 2018 History of hip replacement, total Left - 2007, Right - 2008 Family History Father , Passed age 88 of Kidney Cancer No problems noted. Mother , Passed age 83 of Alzheimers Disease No problems noted. Brother No problems noted. Sister ALL (acute lymphoblastic leukemia), Onset Age: 66 Now in remission Daughter No problems noted. Son No problems noted. 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 Physical Exam Couldnt be obtained as the visit was conducted via telemed. Results & Data Vital Signs (Past 12 Hours) Vital Signs Temp Pulse Pulse Resp BP Pulse Ox O2 Del Method 04/29/24 08:41 82 04/29/24 08:30 Room Air 04/29/24 07:14 36.8 C 82 17 128/78 92 Room Air Laboratory Results Microbiology: 04/23: 1 of 4 bottles of blood culture growing staph hominis 04/25: 2 sets of blood culture negative to date 04/25: Intraoperative wound culture growing strep anginosus, Bacteroides and Peptoniphilus 04/25: Intraoperative sacral bone culture growing Bacteroides Diagnostic Findings Imaging: CT scan of the abdomen and pelvis on 04/23: Mild osteopenia in the coccyx adjacent to a sacral wound with subcutaneous emphysema. Findings are concerning for cellulitis and possible osteomyelitis.
--- NOTE | 2024-04-29 16:35 | Hospitalist Progress Note ---
Date of Service April 29, 2024 Assessment & Plan (1) Wound of sacral region: (2) Wound infection: Plan: Patient is an 83 yr female resident of [facility] with a PMH of history of CVA with left hemiparesis, known sacral wound, chronic atrial fibrillation on anticoagulation, frequent ventricular ectopy, chronic diastolic heart failure (EF: 55% 2023), nocturnal hypoxia and mild MARGARET with oxygen HS, dyslipidemia with statin intolerance, h/p pancreatic tumor s/p distal pancreatectomy/splenectomy, CKD III, lymphoma, history of breast cancer and other medical problems who presents from [facility] with worsening appearance of sacral wound. Necrotic Sacral wound/Cellulitis Possible osteomyelitis Pressure ulcer of sacral region, stage 4, POA S/P excisional debridement of sacral ulcer by Dr. Dale Caldwell on 04/25/2024 Abnormal blood cultures Care complicated by left hemiparesis following CVA, limited mobility --CT ABD:Mild osteopenia in the coccyx adjacent to a sacral wound with subcutaneous emphysema. Findings are concerning for cellulitis and possible osteomyelitis. -- Blood culture 1/2: Grew Staphylococcus hominis --Repeat blood cultures: No growth to date --Preliminary wound cultures growing Streptococcus anginosus, bacteroids fragilis, Peptoniphilus pacaensis --Nasal MRSA negative --follows with wound care at [facility] --Continue vancomycin, Zosyn >> transition to IV Unasyn to complete 6-week course per ID. Last date June 06, 2024 --Appreciate surgery input -- Appreciate infectious disease input: Needs weekly CBC, BMP while on IV antibiotic therapy. Needs follow-up with ID within 8 weeks of discharge. Continue wound care/ Wound VAC Will need rehab placement on discharge Plan to place PICC line once placement available (3) CVA (cerebral vascular accident): Plan: With residual L hemiparesis Continue aspirin, statin (4) Chronic diastolic heart failure: Plan: Appears euvolemic. Continue home lasix, spironolactone (5) Chronic a-fib: Plan: Continue digoxin MWF Resume Eliquis for anticoagulation--discussed with surgery on 04/26/2024 (6) Mood disorder: Plan: Continue SSRI DVT Px: Eliquis Code status: DNR/DNI Admission and Anticipated Discharge Date Admission Date: April 23, 2024 Subjective Patient is seen and examined at bedside Lying comfortably during my encounter States feeling tired today Offers no other complaints today Denies any chest pain, dyspnea, nausea, vomiting, abdominal pain Review of Systems Review of Systems: All systems reviewed & are unremarkable except as noted in Subjective Physical Exam Physical Exam: Physical Exam: Vitals signs as noted above General Appearance:Moderately built and nourished, no apparent distress Head: normocephalic, Atraumatic Eyes: normal inspection, EOMI Neck: supple, Trachea midline Respiratory/Chest: Normal breath sounds, CTA, No accessory muscle use Cardiovascular: Irregularly irregular, No murmur Abdomen/GI:Soft, Non tender, Bowel sounds present Extremities/Musculoskeletal:normal inspection,1+ edema Neurologic/Psych:AAOX3, grossly no focal neurological deficits Skin: normal color, warm,+ sacral wound/eschar, purulent fluid Results & Data Results & Data Vital Signs (Past 12 Hours) Vital Signs Temp Pulse Pulse Resp BP Pulse Ox O2 Del Method 04/29/24 14:51 36.5 C 81 17 112/77 95 Room Air 04/29/24 08:41 82 04/29/24 08:30 Room Air 04/29/24 07:14 36.8 C 82 17 128/78 92 Room Air Laboratory Results BMP 04/29/24 09:04 Creatinine 0.86 (1) Wound of sacral region Encounter type: initial encounter Qualified Code(s): S31.000A - Unspecified open wound of lower back and pelvis without penetration into retroperitoneum, initial encounter
[2024-04-29] MEDS: AMPICILLIN/SULBACTAM SOD 3,000 MG/100 ML BAG IV SCH (22:16)
[2024-04-30 08:55] LABS: Hemoglobin 11.7 g/dl (12.0-16.0); Mean Corpuscular Hemoglobin 31.2 pg (25.0-34.0); Mean Corpuscular Hgb Conc 32.5 g/dL (32.0-36.0); Mean Platelet Volume 10.5 fL (9.4-12.4); Platelet Count 402 K/uL (130-400); RDW Coefficient of Variation 15.9 % (11.5-14.5); RDW Standard Deviation 55.6 fL (36.4-46.3); Red Blood Count 3.75 M/uL (4.20-5.40)
[2024-04-30 09:05] LABS: BUN Creatinine Ratio 25.8 (10-20); Calcium 8.4 mg/dl (8.6-10.3); Creatinine Clr Calc Pharmacy 40.1 ml/min; Potassium 3.8 mmol/L (3.5-5.1)
--- NOTE | 2024-04-30 15:44 | Hospitalist Progress Note ---
Date of Service April 30, 2024 Assessment & Plan (1) Wound of sacral region: (2) Wound infection: Plan: Patient is an 83 yr female resident of [facility] with a PMH of history of CVA with left hemiparesis, known sacral wound, chronic atrial fibrillation on anticoagulation, frequent ventricular ectopy, chronic diastolic heart failure (EF: 55% 2023), nocturnal hypoxia and mild MARGARET with oxygen HS, dyslipidemia with statin intolerance, h/p pancreatic tumor s/p distal pancreatectomy/splenectomy, CKD III, lymphoma, history of breast cancer and other medical problems who presents from [facility] with worsening appearance of sacral wound. Necrotic Sacral wound/Cellulitis Possible osteomyelitis Pressure ulcer of sacral region, stage 4, POA S/P excisional debridement of sacral ulcer by Dr. Dale Caldwell on 04/25/2024 Abnormal blood cultures Care complicated by left hemiparesis following CVA, limited mobility --CT ABD:Mild osteopenia in the coccyx adjacent to a sacral wound with subcutaneous emphysema. Findings are concerning for cellulitis and possible osteomyelitis. -- Blood culture 1/2: Grew Staphylococcus hominis --Repeat blood cultures: No growth to date --Preliminary wound cultures growing Streptococcus anginosus, bacteroids fragilis, Peptoniphilus pacaensis --Nasal MRSA negative --follows with wound care at [facility] --Continue vancomycin, Zosyn >> transition to IV Unasyn to complete 6-week course per ID. Last date June 06, 2024 --Appreciate surgery input -- Appreciate infectious disease input: Needs weekly CBC, BMP while on IV antibiotic therapy. Needs follow-up with ID within 8 weeks of discharge. Continue wound care/ Wound VAC Will need rehab placement on discharge Plan to place PICC line once placement available Waiting for placement Case management to help with discharge planning (3) CVA (cerebral vascular accident): Plan: With residual L hemiparesis Continue aspirin, statin (4) Chronic diastolic heart failure: Plan: Appears euvolemic. Continue home lasix, spironolactone (5) Chronic a-fib: Plan: Continue digoxin MWF Resume Eliquis for anticoagulation--discussed with surgery on 04/26/2024 (6) Mood disorder: Plan: Continue SSRI DVT Px: Eliquis Code status: DNR/DNI Admission and Anticipated Discharge Date Admission Date: April 23, 2024 Subjective Patient is seen and examined at bedside States having some sacral wound pain No new complaints today Feels tired Denies any chest pain, dyspnea, nausea, vomiting, abdominal pain Waiting for rehab placement Review of Systems Review of Systems: All systems reviewed & are unremarkable except as noted in Subjective Physical Exam Physical Exam: Physical Exam: Vitals signs as noted above General Appearance:Moderately built and nourished, no apparent distress Head: normocephalic, Atraumatic Eyes: normal inspection, EOMI Neck: supple, Trachea midline Respiratory/Chest: Normal breath sounds, CTA, No accessory muscle use Cardiovascular: Irregularly irregular, No murmur Abdomen/GI:Soft, Non tender, Bowel sounds present Extremities/Musculoskeletal:normal inspection,1+ edema Neurologic/Psych:AAOX3, grossly no focal neurological deficits Skin: normal color, warm,+ sacral wound/eschar, purulent fluid Results & Data Results & Data Vital Signs (Past 12 Hours) Vital Signs Temp Pulse Resp BP BP Pulse Ox O2 Del Method 04/30/24 15:23 36.6 C 72 16 119/88 94 Room Air 04/30/24 07:29 36.5 C 75 18 121/87 98 Room Air Laboratory Results Short CBC 04/30/24 Range/Units 07:57 WBC 7.00 (4.8-10.8) K/ul Hgb 11.7 L (12.0-16.0) g/dl Hct 36.0 L (37.0-47.0) % Plt Count 402 H (130-400) K/uL BMP 04/30/24 07:57 Sodium 139 Potassium 3.8 Chloride 102 Carbon Dioxide 33 H BUN 25 H Creatinine 0.97 Glucose 96 Calcium 8.4 L (1) Wound of sacral region Encounter type: initial encounter Qualified Code(s): S31.000A - Unspecified open wound of lower back and pelvis without penetration into retroperitoneum, initial encounter
[2024-05-01 08:49] LABS: BUN Creatinine Ratio 29.1 (10-20); Calcium 8.2 mg/dl (8.6-10.3); Creatinine Clr Calc Pharmacy 49.2 ml/min; Potassium 3.8 mmol/L (3.5-5.1)
--- NOTE | 2024-05-01 11:56 | Hospitalist Progress Note ---
Date of Service May 01, 2024 Assessment & Plan (1) Wound of sacral region: Plan: With an element of possible osteomyelitis, ID recommended patient to be treated as osteomyelitis with Unasyn until June 06, 2024, patient eventually on the day of discharge will require PICC line placement. Otherwise clinically stable. (2) Wound infection: Plan: Continue with local wound care. (3) CVA (cerebral vascular accident): Plan: Clinically stable, no new deficits, continue with aspirin 81 mg daily, Pravachol 80 mg daily. (4) Chronic diastolic heart failure: Plan: Clinically stable and euvolemic, continue home dose of Lasix and Aldactone. (5) Chronic a-fib: Plan: Heart rate is controlled, continue with digoxin as a scheduled at home, continue Eliquis. (6) Mood disorder: Plan: Continue with escitalopram 5 mg every morning Plan Continue with IV Unasyn until June 06, 2024, discussed with case management, awaiting placement. Admission and Anticipated Discharge Date Admission Date: April 23, 2024 Subjective Patient is an 83-year-old very pleasant female with history of prior stroke status post left hemiparesis, known sacral wound, chronic atrial fibrillation on anticoagulation, chronic diastolic CHF, MARGARET, with oxygen at night, dyslipidemia, CKD stage III who presented to the hospital because of complication related to her sacral wound. This wound has gradually been getting worse. CT of the pelvis was done showing concern for cellulitis and possible osteomyelitis, patient was seen by infectious disease, recommendation for IV antibiotic given With Unasyn 3000 mg every 6 hours with end date of June 06, 2024. Patient also requires placement which is now underway. Patient was seen and examined, clinically stable, complained of some constipation but otherwise unremarkable, did not complain of much pain. Physical Exam Physical Exam: VITALS: Reviewed. WEIGHT/BMI reviewed. GEN: Healthy appearing, well-developed, NAD. CV: RRR, no m/r/g. LUNGS: CTAB, no w/r/c. ABD: Soft, NT/ND, NBS, no masses or organomegaly. Results & Data Results & Data Vital Signs (Past 12 Hours) Vital Signs Temp Pulse Pulse Resp BP Pulse Ox O2 Del Method 05/01/24 09:01 88 05/01/24 07:38 36.6 C 88 16 108/74 95 Room Air Laboratory Results Laboratory Results - last 24 hr 05/01/24 08:05 Sodium 140 Potassium 3.8 Chloride 102 Carbon Dioxide 33 H Anion Gap 5 BUN 23 Creatinine 0.79 Est Cr Clr Drug Dosing 49.2 eGFR 74.64 BUN/Creatinine Ratio 29.1 H Glucose 98 Calcium 8.2 L Medications Administered Current Inpatient Medications Acetaminophen (Acetaminophen 325 Mg Tab) 650 mg PO Q4H PRN PRN Reason: pain/fever Stop: 05/23/24 19:27 Last Admin: 04/25/24 20:57 Dose: 650 mg Alendronate Sodium (Alendronate Sodium 70 Mg Tab) 70 mg PO FR@0900 [facility] Stop: 05/26/24 08:59 Last Admin: 04/26/24 09:29 Dose: 70 mg Apixaban (Apixaban 5 Mg Tablet) 5 mg PO BID [facility] Stop: 05/26/24 20:59 Last Admin: 05/01/24 09:02 Dose: 5 mg Aspirin (Aspirin 81 Mg Ectab) 81 mg PO DAILY [facility] Stop: 05/24/24 08:59 Last Admin: 05/01/24 09:01 Dose: 81 mg Calcium/Vitamin D (Calcium 600mg + Vit D 400 Iu Tab) 1 tab PO QDL [facility] Stop: 05/24/24 11:29 Last Admin: 05/01/24 10:56 Dose: 1 tab Digoxin (Digoxin 0.125 Mg Tab) 0.125 mg PO MOWEFR@09 [facility] Stop: 05/24/24 08:59 Last Admin: 05/01/24 09:01 Dose: 0.125 mg Escitalopram Oxalate (Escitalopram Oxalate 10 Mg Tab) 5 mg PO QAM [facility] Stop: 05/24/24 08:59 Last Admin: 05/01/24 08:55 Dose: 5 mg Furosemide (Furosemide 40 Mg Tab) 40 mg PO SuTuThSa@0900 [facility] Stop: 05/25/24 08:59 Last Admin: 04/30/24 08:01 Dose: 40 mg Furosemide (Furosemide 20 Mg Tab) 60 mg PO MoWeFr@899 [facility] Stop: 05/24/24 08:59 Last Admin: 05/01/24 09:01 Dose: 60 mg Ampicillin Sodium/Sulbactam Sodium (Unasyn) 3,000 mg in 100 mls @ 200 mls/hr IV Q6H [facility] Stop: 06/10/24 21:59 Last Infusion: 05/01/24 11:52 Dose: Infused Melatonin (Melatonin 3 Mg Tab) 3 mg PO HS PRN PRN Reason: Insomnia Stop: 05/23/24 19:27 Midodrine (Midodrine Hcl 2.5 Mg Tab) 5 mg PO TIDM [facility] Stop: 05/28/24 07:59 Last Admin: 05/01/24 09:02 Dose: 5 mg Morphine Sulfate (Morphine Sulfate 2 Mg/Ml Carp) 2 mg IV Q2H PRN PRN Reason: Severe Pain (Scale 7, 8, 9,10) Stop: 05/09/24 16:58 Multivitamins (Multivitamin Tab) 1 tab PO DAILY [facility] Stop: 05/24/24 08:59 Last Admin: 05/01/24 09:02 Dose: 1 tab Ondansetron HCl (Ondansetron Inj 2 Mg/Ml 2 Ml Vial) 4 mg IV Q6H PRN PRN Reason: Nausea Stop: 05/23/24 19:27 Oxycodone HCl (Oxycodone Hcl Ir 5 Mg Tab (Immediate Release)) 5 mg PO Q4H PRN PRN Reason: Moderate Pain (Scale 4, 5, 6) Stop: 05/09/24 16:58 Oxycodone HCl (Oxycodone Hcl Ir 5 Mg Tab (Immediate Release)) 10 mg PO Q4H PRN PRN Reason: Severe Pain (Scale 7, 8, 9,10) Stop: 05/09/24 16:58 Polyethylene Glycol (Polyethylene (Miralax) 17 Gm Pack) 17 gm PO DAILY PRN PRN Reason: Constipation Stop: 05/23/24 19:27 Pravastatin Sodium (Pravastatin Sod 40 Mg Tab) 80 mg PO DAILY [facility] Stop: 05/24/24 08:59 Last Admin: 05/01/24 09:01 Dose: 80 mg Sennosides (Senna 8.6 Mg Tab) 8.6 mg PO BID [facility] Stop: 05/23/24 20:59 Last Admin: 05/01/24 09:08 Dose: 8.6 mg Spironolactone (Spironolactone 12.5 Mg Tab) 12.5 mg PO DAILY [facility] Stop: 05/24/24 08:59 Last Admin: 05/01/24 09:02 Dose: 12.5 mg Vitamin D (Cholecalciferol 25 Mcg (1000 Units) Tab) 50 mcg PO DAILY [facility] Stop: 05/24/24 08:59 Last Admin: 05/01/24 08:55 Dose: 50 mcg (1) Wound of sacral region Encounter type: initial encounter Qualified Code(s): S31.000A - Unspecified open wound of lower back and pelvis without penetration into retroperitoneum, initial encounter
[2024-05-02] MEDS: ONDANSETRON INJ 2 MG/ML 2 ML VIAL IV PRN (08:41)
[2024-05-02] MEDS: ONDANSETRON INJ 2 MG/ML 2 ML VIAL IV ONE (10:40)
--- NOTE | 2024-05-02 11:44 | Hospitalist Progress Note ---
Date of Service May 02, 2024 Assessment & Plan (1) Wound of sacral region: Plan: With an element of possible osteomyelitis, ID recommended patient to be treated as osteomyelitis with Unasyn until June 06, 2024, PICC line will be placed today, would be ready later for placement, no bed offer yet by any facility. (2) Wound infection: Plan: Continue with local wound care. (3) CVA (cerebral vascular accident): Plan: Clinically stable, no new deficits, continue with aspirin 81 mg daily, Pravachol 80 mg daily. (4) Chronic diastolic heart failure: Plan: Clinically stable and euvolemic, continue home dose of aspirin, digoxin, Lasix and Aldactone. (5) Chronic a-fib: Plan: Heart rate is controlled, continue with digoxin as a scheduled at home, continue Eliquis. (6) Mood disorder: Plan: Continue with escitalopram 5 mg every morning. Plan Continue with IV Unasyn until June 06, 2024, discussed with case management, awaiting placement. Admission and Anticipated Discharge Date Admission Date: April 23, 2024 Subjective Patient is an 83-year-old very pleasant female with history of prior stroke status post left hemiparesis, known sacral wound, chronic atrial fibrillation on anticoagulation, chronic diastolic CHF, MARGARET, with oxygen at night, dyslipidemia, CKD stage III who presented to the hospital because of complication related to her sacral wound. This wound has gradually been getting worse. CT of the pelvis was done showing concern for cellulitis and possible osteomyelitis, patient was seen by infectious disease, recommendation for IV antibiotic given With Unasyn 3000 mg every 6 hours with end date of June 06, 2024. Patient also requires placement which is now underway. Patient was seen and examined, she remained stable, PICC line will be ordered, consent was taken, case management was notified about the plan, they do not have any bed offer yet. Physical Exam Physical Exam: VITALS: Reviewed. WEIGHT/BMI reviewed. GEN: Healthy appearing, well-developed, NAD. CV: RRR, no m/r/g. LUNGS: CTAB, no w/r/c. ABD: Soft, NT/ND, NBS, no masses or organomegaly. Results & Data Results & Data Vital Signs (Past 12 Hours) Vital Signs Temp Pulse Resp BP BP Pulse Ox O2 Del Method 05/02/24 11:35 20 111/67 93 Room Air 05/02/24 08:40 71 20 99/71 L 93 Room Air 05/02/24 07:29 37.0 C 81 17 108/73 94 Room Air Medications Administered Current Inpatient Medications Acetaminophen (Acetaminophen 325 Mg Tab) 650 mg PO Q4H PRN PRN Reason: pain/fever Stop: 05/23/24 19:27 Last Admin: 04/25/24 20:57 Dose: 650 mg Alendronate Sodium (Alendronate Sodium 70 Mg Tab) 70 mg PO FR@0900 [facility] Stop: 05/26/24 08:59 Last Admin: 04/26/24 09:29 Dose: 70 mg Apixaban (Apixaban 5 Mg Tablet) 5 mg PO BID [facility] Stop: 05/26/24 20:59 Last Admin: 05/02/24 08:45 Dose: 5 mg Aspirin (Aspirin 81 Mg Ectab) 81 mg PO DAILY [facility] Stop: 05/24/24 08:59 Last Admin: 05/02/24 08:45 Dose: 81 mg Calcium/Vitamin D (Calcium 600mg + Vit D 400 Iu Tab) 1 tab PO QDL [facility] Stop: 05/24/24 11:29 Last Admin: 05/02/24 10:46 Dose: 1 tab Digoxin (Digoxin 0.125 Mg Tab) 0.125 mg PO MOWEFR@0900 [facility] Stop: 05/24/24 08:59 Last Admin: 05/01/24 09:01 Dose: 0.125 mg Escitalopram Oxalate (Escitalopram Oxalate 10 Mg Tab) 5 mg PO QAM [facility] Stop: 05/24/24 08:59 Last Admin: 05/02/24 08:46 Dose: 5 mg Furosemide (Furosemide 40 Mg Tab) 40 mg PO SuTuThSa@0900 [facility] Stop: 05/25/24 08:59 Last Admin: 05/02/24 08:46 Dose: 40 mg Furosemide (Furosemide 20 Mg Tab) 60 mg PO MoWeFr@0900 [facility] Stop: 05/24/24 08:59 Last Admin: 05/01/24 09:01 Dose: 60 mg Ampicillin Sodium/Sulbactam Sodium (Unasyn) 3,000 mg in 100 mls @ 200 mls/hr IV Q6H [facility] Stop: 06/10/24 21:59 Last Infusion: 05/02/24 11:29 Dose: Infused Melatonin (Melatonin 3 Mg Tab) 3 mg PO HS PRN PRN Reason: Insomnia Stop: 05/23/24 19:27 Midodrine (Midodrine Hcl 2.5 Mg Tab) 5 mg PO TIDM [facility] Stop: 05/28/24 07:59 Last Admin: 05/02/24 11:37 Dose: 5 mg Morphine Sulfate (Morphine Sulfate 2 Mg/Ml Carp) 2 mg IV Q2H PRN PRN Reason: Severe Pain (Scale 7, 8, 9,10) Stop: 05/09/24 16:58 Multivitamins (Multivitamin Tab) 1 tab PO DAILY [facility] Stop: 05/24/24 08:59 Last Admin: 05/02/24 08:45 Dose: 1 tab Ondansetron HCl (Ondansetron Inj 2 Mg/Ml 2 Ml Vial) 4 mg IV Q6H PRN PRN Reason: Nausea Stop: 05/23/24 19:27 Last Admin: 05/02/24 08:41 Dose: 4 mg Oxycodone HCl (Oxycodone Hcl Ir 5 Mg Tab (Immediate Release)) 5 mg PO Q4H PRN PRN Reason: Moderate Pain (Scale 4, 5, 6) Stop: 05/09/24 16:58 Oxycodone HCl (Oxycodone Hcl Ir 5 Mg Tab (Immediate Release)) 10 mg PO Q4H PRN PRN Reason: Severe Pain (Scale 7, 8, 9,10) Stop: 05/09/24 16:58 Polyethylene Glycol (Polyethylene (Miralax) 17 Gm Pack) 17 gm PO DAILY PRN PRN Reason: Constipation Stop: 05/23/24 19:27 Pravastatin Sodium (Pravastatin Sod 40 Mg Tab) 80 mg PO DAILY [facility] Stop: 05/24/24 08:59 Last Admin: 05/02/24 08:45 Dose: 80 mg Sennosides (Senna 8.6 Mg Tab) 8.6 mg PO BID [facility] Stop: 05/23/24 20:59 Last Admin: 05/02/24 10:13 Dose: 8.6 mg Spironolactone (Spironolactone 12.5 Mg Tab) 12.5 mg PO DAILY [facility] Stop: 05/24/24 08:59 Last Admin: 05/02/24 08:47 Dose: 12.5 mg Vitamin D (Cholecalciferol 25 Mcg (1000 Units) Tab) 50 mcg PO DAILY [facility] Stop: 05/24/24 08:59 Last Admin: 05/02/24 08:44 Dose: 50 mcg (1) Wound of sacral region Encounter type: initial encounter Qualified Code(s): S31.000A - Unspecified open wound of lower back and pelvis without penetration into retroperitoneum, initial encounter (3) CVA (cerebral vascular accident) CVA mechanism: unspecified Qualified Code(s): I63.9 - Cerebral infarction, unspecified
--- NOTE | 2024-05-02 15:57 | XRay Report ---
XR chest 1V portable CLINICAL HISTORY: left side picc placement/ a-fib COMPARISON STUDY: Chest CT August 26, 2023. Chest radiograph February 27, 2024. FINDINGS: Left PICC is coiled back upon itself within the mediastinum. The tip projects over the left subclavian vein. There is no pneumothorax. A skin fold projects over the left chest. Cardiomegaly is unchanged. There is no evidence for pulmonary edema. There is no consolidation. IMPRESSION: Malpositioned left PICC. The PICC is coiled back upon itself with tip projecting over th e left subclavian vein. Repositioning is recommended. ACT 112: Negative or not required by law. Electronically signed by: Anderson Branch M.D. 05/02/2024 3:55 PM
--- NOTE | 2024-05-03 09:53 | Hospitalist Progress Note ---
Date of Service May 03, 2024 Assessment & Plan (1) Wound of sacral region: Plan: With an element of possible osteomyelitis, ID recommended patient to be treated as osteomyelitis with Unasyn until June 06, 2024, PICC line was inserted on 05/02/2024. (2) Wound infection: Plan: Continue with local wound care and wound vacuum. (3) CVA (cerebral vascular accident): Plan: Clinically stable, no new deficits, continue with aspirin 81 mg daily, Pravachol 80 mg daily. (4) Chronic diastolic heart failure: Plan: Clinically stable and euvolemic, continue home dose of aspirin, digoxin, Lasix and Aldactone. (5) Chronic a-fib: Plan: Heart rate is controlled, continue with digoxin as a scheduled at home, continue Eliquis. (6) Mood disorder: Plan: Continue with escitalopram 5 mg every morning. Plan Continue with IV Unasyn until June 06, 2024, discussed with case management, no accepting facility yet, awaiting placement. Admission and Anticipated Discharge Date Admission Date: April 23, 2024 Subjective Patient is an 83-year-old very pleasant female with history of prior stroke status post left hemiparesis, known sacral wound, chronic atrial fibrillation on anticoagulation, chronic diastolic CHF, MARGARET, with oxygen at night, dyslipidemia, CKD stage III who presented to the hospital because of complication related to her sacral wound. This wound has gradually been getting worse. CT of the pelvis was done showing concern for cellulitis and possible osteomyelitis, patient was seen by infectious disease, recommendation for IV antibiotic given With Unasyn 3000 mg every 6 hours with end date of June 06, 2024. Patient also requires placement which is now underway. Patient was seen and examined, status post PICC line yesterday, doing well, case was discussed with case management, still there is no accepting facility, continue with IV Unasyn. Continue with wound vacuum. Physical Exam Physical Exam: VITALS: Reviewed. WEIGHT/BMI reviewed. GEN: Healthy appearing, well-developed, NAD. CV: RRR, no m/r/g. LUNGS: CTAB, no w/r/c. ABD: Soft, NT/ND, NBS, no masses or organomegaly. Results & Data Results & Data Vital Signs (Past 12 Hours) Vital Signs Temp Pulse Pulse Resp BP BP Pulse Ox 05/03/24 09:19 87 05/03/24 09:00 36.6 C 87 20 103/67 94 05/03/24 07:51 36.7 C 83 17 113/78 91 O2 Del Method 05/03/24 09:19 05/03/24 09:00 Room Air 05/03/24 07:51 Room Air Diagnostic Findings Chest X-Ray 05/02/24 14:59 XR chest 1V portable CLINICAL HISTORY: left side picc placement/ a-fib COMPARISON STUDY: Chest CT August 26, 2023. Chest radiograph February 27, 2024. FINDINGS: Left PICC is coiled back upon itself within the mediastinum. The tip projects over the left subclavian vein. There is no pneumothorax. A skin fold projects over the left chest. Cardiomegaly is unchanged. There is no evidence for pulmonary edema. There is no consolidation. IMPRESSION: Malpositioned left PICC. The PICC is coiled back upon itself with tip projecting over the left subclavian vein. Repositioning is recommended. ACT 112: Negative or not required by law. Electronically signed by: Anderson Branch M.D. 05/02/2024 3:55 PM Medications Administered Current Inpatient Medications Acetaminophen (Acetaminophen 325 Mg Tab) 650 mg PO Q4H PRN PRN Reason: pain/fever Stop: 05/23/24 19:27 Last Admin: 04/25/24 20:57 Dose: 650 mg Alendronate Sodium (Alendronate Sodium 70 Mg Tab) 70 mg PO FR@0900 [facility] Stop: 05/26/24 08:59 Last Admin: 05/03/24 09:21 Dose: 70 mg Apixaban (Apixaban 5 Mg Tablet) 5 mg PO BID [facility] Stop: 05/26/24 20:59 Last Admin: 05/03/24 09:21 Dose: 5 mg Aspirin (Aspirin 81 Mg Ectab) 81 mg PO DAILY [facility] Stop: 05/24/24 08:59 Last Admin: 05/03/24 09:20 Dose: 81 mg Calcium/Vitamin D (Calcium 600mg + Vit D 400 Iu Tab) 1 tab PO QDL [facility] Stop: 05/24/24 11:29 Last Admin: 05/03/24 09:21 Dose: 1 tab Digoxin (Digoxin 0.125 Mg Tab) 0.125 mg PO MOWEFR@0900 [facility] Stop: 05/24/24 08:59 Last Admin: 05/03/24 09:19 Dose: 0.125 mg Escitalopram Oxalate (Escitalopram Oxalate 10 Mg Tab) 5 mg PO QAM [facility] Stop: 05/24/24 08:59 Last Admin: 05/03/24 09:20 Dose: 5 mg Furosemide (Furosemide 40 Mg Tab) 40 mg PO SuTuThSa@0900 [facility] Stop: 05/25/24 08:59 Last Admin: 05/02/24 08:46 Dose: 40 mg Furosemide (Furosemide 20 Mg Tab) 60 mg PO MoWeFr@0900 [facility] Stop: 05/24/24 08:59 Last Admin: 05/03/24 09:19 Dose: 60 mg Ampicillin Sodium/Sulbactam Sodium (Unasyn) 3,000 mg in 100 mls @ 200 mls/hr IV Q6H [facility] Stop: 06/10/24 21:59 Last Infusion: 05/03/24 04:49 Dose: Infused Melatonin (Melatonin 3 Mg Tab) 3 mg PO HS PRN PRN Reason: Insomnia Stop: 05/23/24 19:27 Midodrine (Midodrine Hcl 2.5 Mg Tab) 5 mg PO TIDM [facility] Stop: 05/28/24 07:59 Last Admin: 05/03/24 09:20 Dose: 5 mg Morphine Sulfate (Morphine Sulfate 2 Mg/Ml Carp) 2 mg IV Q2H PRN PRN Reason: Severe Pain (Scale 7, 8, 9,10) Stop: 05/09/24 16:58 Multivitamins (Multivitamin Tab) 1 tab PO DAILY [facility] Stop: 05/24/24 08:59 Last Admin: 05/03/24 09:20 Dose: 1 tab Ondansetron HCl (Ondansetron Inj 2 Mg/Ml 2 Ml Vial) 4 mg IV Q6H PRN PRN Reason: Nausea Stop: 05/23/24 19:27 Last Admin: 05/02/24 08:41 Dose: 4 mg Oxycodone HCl (Oxycodone Hcl Ir 5 Mg Tab (Immediate Release)) 5 mg PO Q4H PRN PRN Reason: Moderate Pain (Scale 4, 5, 6) Stop: 05/09/24 16:58 Oxycodone HCl (Oxycodone Hcl Ir 5 Mg Tab (Immediate Release)) 10 mg PO Q4H PRN PRN Reason: Severe Pain (Scale 7, 8, 9,10) Stop: 05/09/24 16:58 Polyethylene Glycol (Polyethylene (Miralax) 17 Gm Pack) 17 gm PO DAILY PRN PRN Reason: Constipation Stop: 05/23/24 19:27 Pravastatin Sodium (Pravastatin Sod 40 Mg Tab) 80 mg PO DAILY [facility] Stop: 05/24/24 08:59 Last Admin: 05/03/24 09:19 Dose: 80 mg Sennosides (Senna 8.6 Mg Tab) 8.6 mg PO BID [facility] Stop: 05/23/24 20:59 Last Admin: 05/03/24 09:19 Dose: 8.6 mg Spironolactone (Spironolactone 12.5 Mg Tab) 12.5 mg PO DAILY [facility] Stop: 05/24/24 08:59 Last Admin: 05/03/24 09:21 Dose: 12.5 mg Vitamin D (Cholecalciferol 25 Mcg (1000 Units) Tab) 50 mcg PO DAILY [facility] Stop: 05/24/24 08:59 Last Admin: 05/03/24 09:20 Dose: 50 mcg (1) Wound of sacral region Encounter type: initial encounter Qualified Code(s): S31.000A - Unspecified o pen wound of lower back and pelvis without penetration into retroperitoneum, initial encounter (3) CVA (cerebral vascular accident) CVA mechanism: unspecified Qualified Code(s): I63.9 - Cerebral infarction, unspecified
--- NOTE | 2024-05-04 09:59 | Hospitalist Progress Note ---
Date of Service May 04, 2024 Assessment & Plan (1) Wound of sacral region: Plan: With osteomyelitis, ID recommended patient to be treated as osteomyelitis with Unasyn until June 06, 2024, PICC line was inserted on 05/02/2024. (2) Wound infection: Plan: Continue with local wound care and wound vacuum. (3) CVA (cerebral vascular accident): Plan: Clinically stable, no new deficits, continue with aspirin 81 mg daily, Pravachol 80 mg daily. (4) Chronic diastolic heart failure: Plan: Clinically stable and euvolemic, continue home dose of aspirin, digoxin, Lasix and Aldactone. (5) Chronic a-fib: Plan: Heart rate is controlled, continue with digoxin as a scheduled at home, continue Eliquis. (6) Mood disorder: Plan: Continue with escitalopram 5 mg every morning. Plan Continue with IV Unasyn until June 06, 2024, for reattempt on PICC line placement again on Monday by IV team, awaiting placement. Admission and Anticipated Discharge Date Admission Date: April 23, 2024 Subjective Patient is an 83-year-old very pleasant female with history of prior stroke status post left hemiparesis, known sacral wound, chronic atrial fibrillation on anticoagulation, chronic diastolic CHF, MARGARET, with oxygen at night, dyslipidemia, CKD stage III who presented to the hospital because of complication related to her sacral wound. This wound has gradually been getting worse. CT of the pelvis was done showing concern for cellulitis and possible osteomyelitis, patient was seen by infectious disease, recommendation for IV antibiotic given With Unasyn 3000 mg every 6 hours with end date of June 06, 2024. Patient also requires placement which is now underway. Patient was seen and examined, status post wound vacuum, still there is no accepting facility, we plan to to put PICC line yesterday which was not successful, they are going to reattempt on Monday. Physical Exam Physical Exam: VITALS: Reviewed. WEIGHT/BMI reviewed. GEN: Healthy appearing, well-developed, NAD. CV: RRR, no m/r/g. LUNGS: CTAB, no w/r/c. ABD: Soft, NT/ND, NBS, no masses or organomegaly. Results & Data Results & Data Vital Signs (Past 12 Hours) Vital Signs Temp Pulse Resp BP Pulse Ox O2 Del Method O2 Flow Rate 05/04/24 08:07 36.6 C 79 20 101/69 98 Nasal Cannula 1.5 05/03/24 22:30 Room Air, Nasal Cannula Laboratory Results Laboratory Results - last 24 hr 05/03/24 Unknown SARS-CoV-2 (PCR) POSITIVE A Medications Administered Current Inpatient Medications Acetaminophen (Acetaminophen 325 Mg Tab) 650 mg PO Q4H PRN PRN Reason: pain/fever Stop: 05/23/24 19:27 Last Admin: 04/25/24 20:57 Dose: 650 mg Alendronate Sodium (Alendronate Sodium 70 Mg Tab) 70 mg PO FR@0900 [facility] Stop: 05/26/24 08:59 Last Admin: 05/03/24 09:21 Dose: 70 mg Apixaban (Apixaban 5 Mg Tablet) 5 mg PO BID [facility] Stop: 05/26/24 20:59 Last Admin: 05/03/24 22:30 Dose: 5 mg Aspirin (Aspirin 81 Mg Ectab) 81 mg PO DAILY [facility] Stop: 05/24/24 08:59 Last Admin: 05/03/24 09:20 Dose: 81 mg Calcium/Vitamin D (Calcium 600mg + Vit D 400 Iu Tab) 1 tab PO QDL [facility] Stop: 05/24/24 11:29 Last Admin: 05/03/24 09:21 Dose: 1 tab Digoxin (Digoxin 0.125 Mg Tab) 0.125 mg PO MOWEFR@0900 [facility] Stop: 05/24/24 08:59 Last Admin: 05/03/24 09:19 Dose: 0.125 mg Escitalopram Oxalate (Escitalopram Oxalate 10 Mg Tab) 5 mg PO QAM [facility] Stop: 05/24/24 08:59 Last Admin: 05/03/24 09:20 Dose: 5 mg Furosemide (Furosemide 40 Mg Tab) 40 mg PO SuTuThSa@0900 [facility] Stop: 05/25/24 08:59 Last Admin: 05/02/24 08:46 Dose: 40 mg Furosemide (Furosemide 20 Mg Tab) 60 mg PO MoWeFr@0900 [facility] Stop: 05/24/24 08:59 Last Admin: 05/03/24 09:19 Dose: 60 mg Ampicillin Sodium/Sulbactam Sodium (Unasyn) 3,000 mg in 100 mls @ 200 mls/hr IV Q6H [facility] Stop: 06/10/24 21:59 Last Infusion: 05/04/24 05:17 Dose: Infused Melatonin (Melatonin 3 Mg Tab) 3 mg PO HS PRN PRN Reason: Insomnia Stop: 05/23/24 19:27 Midodrine (Midodrine Hcl 2.5 Mg Tab) 5 mg PO TIDM [facility] Stop: 05/28/24 07:59 Last Admin: 05/03/24 16:57 Dose: 5 mg Morphine Sulfate (Morphine Sulfate 2 Mg/Ml Carp) 2 mg IV Q2H PRN PRN Reason: Severe Pain (Scale 7, 8, 9,10) Stop: 05/09/24 16:58 Multivitamins (Multivitamin Tab) 1 tab PO DAILY [facility] Stop: 05/24/24 08:59 Last Admin: 05/03/24 09:20 Dose: 1 tab Ondansetron HCl (Ondansetron Inj 2 Mg/Ml 2 Ml Vial) 4 mg IV Q6H PRN PRN Reason: Nausea Stop: 05/23/24 19:27 Last Admin: 05/02/24 08:41 Dose: 4 mg Oxycodone HCl (Oxycodone Hcl Ir 5 Mg Tab (Immediate Release)) 5 mg PO Q4H PRN PRN Reason: Moderate Pain (Scale 4, 5, 6) Stop: 05/09/24 16:58 Oxycodone HCl (Oxycodone Hcl Ir 5 Mg Tab (Immediate Release)) 10 mg PO Q4H PRN PRN Reason: Severe Pain (Scale 7, 8, 9,10) Stop: 05/09/24 16:58 Polyethylene Glycol (Polyethylene (Miralax) 17 Gm Pack) 17 gm PO DAILY PRN PRN Reason: Constipation Stop: 05/23/24 19:27 Pravastatin Sodium (Pravastatin Sod 40 Mg Tab) 80 mg PO DAILY [facility] Stop: 05/24/24 08:59 Last Admin: 05/03/24 09:19 Dose: 80 mg Sennosides (Senna 8.6 Mg Tab) 8.6 mg PO BID [facility] Stop: 05/23/24 20:59 Last Admin: 05/03/24 22:30 Dose: 8.6 mg Spironolactone (Spironolactone 12.5 Mg Tab) 12.5 mg PO DAILY [facility] Stop: 05/24/24 08:59 Last Admin: 05/03/24 09:21 Dose: 12.5 mg Vitamin D (Cholecalciferol 25 Mcg (1000 Units) Tab) 50 mcg PO DAILY [facility] Stop: 05/24/24 08:59 Last Admin: 05/03/24 09:20 Dose: 50 mcg (1) Wound of sacral region Encounter type: initial encounter Qualified Code(s): S31.000A - Unspecified open wound of lower back and pelvis without penetration into retroperitoneum, initial encounter (3) CVA (cerebral vascular accident) CVA mechanism: unspecified Qualified Code(s): I63.9 - Cerebral infarction, unspecified
[2024-05-05 07:24] LABS: Basophils # (auto) 0.03 K/uL (0.00-0.20); Basophils % (auto) 0.5 %; Eosinophils # (auto) 0.23 K/uL (0.00-0.50); Eosinophils % (auto) 4.1 %; Hematocrit (blood only) 34.8 % (37.0-47.0); Hemoglobin 11.5 g/dl (12.0-16.0); Immature Granulocytes # (auto) 0.02 K/uL (0.01-0.20); Immature Granulocytes % (auto) 0.4 %; Lymphocytes # (auto) 1.07 K/uL (1.20-3.40); Lymphocytes % (auto) 19.1 %; Mean Corpuscular Hemoglobin 31.9 pg (25.0-34.0); Mean Corpuscular Volume 96.7 fL (80.0-100.0); Mean Platelet Volume 10.6 fL (9.4-12.4); Monocytes # (auto) 0.83 K/uL (0.11-0.59); Monocytes % (auto) 14.8 %; Neutrophils # (auto) 3.43 K/uL (1.40-6.50); Neutrophils % (auto) 61.1 %; Platelet Count 357 K/uL (130-400); RDW Coefficient of Variation 16.1 % (11.5-14.5); RDW Standard Deviation 56.2 fL (36.4-46.3); White Blood Count 5.61 K/ul (4.8-10.8)
[2024-05-05 07:34] LABS: Albumin Globulin Ratio 0.9 (0.9-2); BUN Creatinine Ratio 27.3 (10-20); Bilirubin,Total 0.5 mg/dl (0.2-1.0); Calcium 7.6 mg/dl (8.6-10.3); Creatinine Clr Calc Pharmacy 50.5 ml/min; Globulin 3.3 gm/dl (2.5-4.0); Total Protein 6.3 gm/dl (6.0-8.3)
[2024-05-05] MEDS: POLYETHYLENE (MIRALAX) 17 GM PACK PO PRN (08:32)
--- NOTE | 2024-05-05 08:58 | Hospitalist Progress Note ---
Date of Service May 05, 2024 Assessment & Plan (1) Wound of sacral region: Plan: Sacral decubitus ulcer with osteomyelitis, ID recommended patient to be treated as osteomyelitis with Unasyn until June 06, 2024, PICC line was inserted on 05/02/2024. (2) Wound infection: Plan: Continue with local wound care and wound vacuum. (3) CVA (cerebral vascular accident): Plan: Clinically stable, no new deficits, continue with aspirin 81 mg daily, Pravachol 80 mg daily. (4) Chronic diastolic heart failure: Plan: Clinically stable and euvolemic, continue home dose of aspirin, digoxin, Lasix and Aldactone. (5) Chronic a-fib: Plan: Heart rate is controlled, continue with digoxin as a scheduled at home, continue Eliquis. (6) Mood disorder: Plan: Continue with escitalopram 5 mg every morning. Plan Continue with IV Unasyn, reattempt for PICC line placement tomorrow, she would be ready if there is excepting facility tomorrow. Admission and Anticipated Discharge Date Admission Date: April 23, 2024 Subjective Patient is an 83-year-old very pleasant female with history of prior stroke status post left hemiparesis, known sacral wound, chronic atrial fibrillation on anticoagulation, chronic diastolic CHF, MARGARET, with oxygen at night, dyslipidemia, CKD stage III who presented to the hospital because of complication related to her sacral wound. This wound has gradually been getting worse. CT of the pelvis was done showing concern for cellulitis and possible osteomyelitis, patient was seen by infectious disease, recommendation for IV antibiotic given With Unasyn 3000 mg every 6 hours with end date of June 06, 2024. Patient also requires placement which is now underway. Patient was seen today and case was discussed with nursing staff, will reattempt for PICC line placement tomorrow otherwise patient is stable. Physical Exam Physical Exam: VITALS: Reviewed. WEIGHT/BMI reviewed. GEN: Healthy appearing, well-developed, NAD. Results & Data Results & Data Vital Signs (Past 12 Hours) Vital Signs Temp Pulse Resp BP BP Pulse Ox O2 Del Method 05/05/24 07:44 36.7 C 81 18 117/81 98 Room Air 05/04/24 22:00 Room Air, Nasal Cannula 05/04/24 21:46 36.7 C 84 17 127/89 97 Room Air Laboratory Results Laboratory Results - last 24 hr 05/05/24 05:41 WBC 5.61 RBC 3.60 L Hgb 11.5 L Hct 34.8 L MCV 96.7 MCH 31.9 MCHC 33.0 RDW Std Deviation 56.2 H RDW Coeff of Pablo 16.1 H Plt Count 357 MPV 10.6 Immature Gran % (Auto) 0.4 Neut % (Auto) 61.1 Lymph % (Auto) 19.1 [place] % (Auto) 14.8 Eos % (Auto) 4.1 Baso % (Auto) 0.5 Neut # (Auto) 3.43 Lymph # (Auto) 1.07 L [place] # (Auto) 0.83 H Eos # (Auto) 0.23 Baso # (Auto) 0.03 Immature Gran # (Auto) 0.02 Sodium 138 Potassium 4.0 Chloride 100 Carbon Dioxide 31 Anion Gap 7 BUN 21 Creatinine 0.77 Est Cr Clr Drug Dosing 50.5 eGFR 76.97 BUN/Creatinine Ratio 27.3 H Glucose 89 Calcium 7.6 L Total Bilirubin 0.5 AST 24 ALT 21 Alkaline Phosphatase 38 Total Protein 6.3 Albumin 3.0 L Globulin 3.3 Albumin/Globulin Ratio 0.9 Medications Administered Current Inpatient Medications Acetaminophen (Acetaminophen 325 Mg Tab) 650 mg PO Q4H PRN PRN Reason: pain/fever Stop: 05/23/24 19:27 Last Admin: 05/05/24 08:39 Dose: 650 mg Alendronate Sodium (Alendronate Sodium 70 Mg Tab) 70 mg PO FR@0900 [facility] Stop: 05/26/24 08:59 Last Admin: 05/03/24 09:21 Dose: 70 mg Apixaban (Apixaban 5 Mg Tablet) 5 mg PO BID [facility] Stop: 05/26/24 20:59 Last Admin: 05/05/24 08:32 Dose: 5 mg Aspirin (Aspirin 81 Mg Ectab) 81 mg PO DAILY [facility] Stop: 05/24/24 08:59 Last Admin: 05/05/24 08:31 Dose: 81 mg Calcium/Vitamin D (Calcium 600mg + Vit D 400 Iu Tab) 1 tab PO QDL [facility] Stop: 05/24/24 11:29 Last Admin: 05/04/24 13:46 Dose: 1 tab Digoxin (Digoxin 0.125 Mg Tab) 0.125 mg PO MOWEFR@0900 [facility] Stop: 05/24/24 08:59 Last Admin: 05/03/24 09:19 Dose: 0.125 mg Escitalopram Oxalate (Escitalopram Oxalate 10 Mg Tab) 5 mg PO QAM [facility] Stop: 05/24/24 08:59 Last Admin: 05/05/24 08:32 Dose: 5 mg Furosemide (Furosemide 40 Mg Tab) 40 mg PO SuTuThSa@0900 [facility] Stop: 05/25/24 08:59 Last Admin: 05/05/24 08:32 Dose: 40 mg Furosemide (Furosemide 20 Mg Tab) 60 mg PO MoWeFr@0900 [facility] Stop: 05/24/24 08:59 Last Admin: 05/03/24 09:19 Dose: 60 mg Ampicillin Sodium/Sulbactam Sodium (Unasyn) 3,000 mg in 100 mls @ 200 mls/hr IV Q6H [facility] Stop: 06/10/24 21:59 Last Infusion: 05/05/24 06:08 Dose: Infused Melatonin (Melatonin 3 Mg Tab) 3 mg PO HS PRN PRN Reason: Insomnia Stop: 05/23/24 19:27 Midodrine (Midodrine Hcl 2.5 Mg Tab) 5 mg PO TIDM [facility] Stop: 05/28/24 07:59 Last Admin: 05/05/24 08:32 Dose: 5 mg Morphine Sulfate (Morphine Sulfate 2 Mg/Ml Carp) 2 mg IV Q2H PRN PRN Reason: Severe Pain (Scale 7, 8, 9,10) Stop: 05/09/24 16:58 Multivitamins (Multivitamin Tab) 1 tab PO DAILY [facility] Stop: 05/24/24 08:59 Last Admin: 05/05/24 08:32 Dose: 1 tab Ondansetron HCl (Ondansetron Inj 2 Mg/Ml 2 Ml Vial) 4 mg IV Q6H PRN PRN Reason: Nausea Stop: 05/23/24 19:27 Last Admin: 05/02/24 08:41 Dose: 4 mg Oxycodone HCl (Oxycodone Hcl Ir 5 Mg Tab (Immediate Release)) 5 mg PO Q4H PRN PRN Reason: Moderate Pain (Scale 4, 5, 6) Stop: 05/09/24 16:58 Oxycodone HCl (Oxycodone Hcl Ir 5 Mg Tab (Immediate Release)) 10 mg PO Q4H PRN PRN Reason: Severe Pain (Scale 7, 8, 9,10) Stop: 05/09/24 16:58 Polyethylene Glycol (Polyethylene (Miralax) 17 Gm Pack) 17 gm PO DAILY PRN PRN Reason: Constipation Stop: 05/23/24 19:27 Last Admin: 05/05/24 08:32 Dose: 17 gm Pravastatin Sodium (Pravastatin Sod 40 Mg Tab) 80 mg PO DAILY [facility] Stop: 05/24/24 08:59 Last Admin: 05/05/24 08:32 Dose: 80 mg Sennosides (Senna 8.6 Mg Tab) 8.6 mg PO BID [facility] Stop: 05/23/24 20:59 Last Admin: 05/05/24 08:33 Dose: 8.6 mg Spironolactone (Spironolactone 12.5 Mg Tab) 12.5 mg PO DAILY [facility] Stop: 05/24/24 08:59 Last Admin: 05/05/24 08:31 Dose: 12.5 mg Vitamin D (Cholecalciferol 25 Mcg (1000 Units) Tab) 50 mcg PO DAILY [facility] Stop: 05/24/24 08:59 Last Admin: 05/05/24 08:32 Dose: 50 mcg (1) Wound of sacral region Encounter type: initial encounter Qualified Code(s): S31.000A - Unspecified open wound of lower back and pelvis without penetration into retroperitoneum, initial encounter (3) CVA (cerebral vascular accident) CVA mechanism: unspecified Qualified Code(s): I63.9 - Cerebral infarction, unspecified
[2024-05-05 21:15] VITALS: O2SAT 95
[2024-05-06 07:32] VITALS: RESP 16; TEMP 97.5
[2024-05-06 08:18] VITALS: PULSE 80
[2024-05-06 12:08] VITALS: BP 125/87
--- NOTE | 2024-05-06 12:14 | Discharge Summary ---
Discharge Summary Date of Service May 06, 2024 Principal Dx & Hospital Course #1 = Principal Diagnosis (1) Wound of sacral region: (2) CVA (cerebral vascular accident): (3) Chronic diastolic heart failure: (4) Chronic a-fib: (5) Mood disorder: (6) Sacral osteomyelitis: Notes For Next Care Provider Medication Changes From Visit Continue taking Unasyn at current dose until June 06, 2024 Admission HPI Per Admitting Provider Patient is an 83-year-old very pleasant female with history of prior stroke status post left hemiparesis, known sacral wound, chronic atrial fibrillation on anticoagulation, chronic diastolic CHF, MARGARET, with oxygen at night, dyslipidemia, CKD stage III who presented to the hospital because of complication related to her sacral wound. This wound has gradually been getting worse. CT of the pelvis was done showing concern for cellulitis and possible osteomyelitis, patient was seen by infectious disease, recommendation for IV antibiotic given With Unasyn 3000 mg every 6 hours with end date of June 06, 2024. Patient was initially attempted to have PICC line 3 days prior to this but was unsuccessful, this was postponed to today, IV team is on board, she will have PICC line today and after that can be transferred to SNF to complete her treatment until June 06, 2024. Wound vacuum is in place. She does not require any ongoing weekly blood work. Updated Medication List Medication Instructions Recorded Confirmed Type calcium 600 mg (as 1 tab PO .LUNCH TIME 04/23/19 04/23/24 History carbonate)-vitamin D3 5 mcg (200 unit) tablet multivitamin 1 tab PO DAILY 04/23/19 04/23/24 History alendronate 70 mg tablet (Fosamax) 70 mg PO FR@0900 04/05/22 04/23/24 History spironolactone 25 mg tablet 12.5 mg PO DAILY 05/18/22 04/23/24 History aspirin 81 mg tablet,delayed 81 mg PO DAILY 09/12/22 04/23/24 History release digoxin 125 mcg (0.125 mg) tablet 125 mcg PO MOWEFR@0900 12/20/22 04/23/24 History melatonin 3 mg tablet 3 mg PO HS PRN Insomnia 12/20/22 04/23/24 History sennosides 8.6 mg tablet (Senokot) 8.6 mg PO BID 12/20/22 04/23/24 History pravastatin 80 mg tablet 80 mg PO DAILY 05/18/23 04/23/24 History furosemide 40 mg tablet 40 mg PO [id number] 08/18/23 04/23/24 History apixaban 5 mg tablet (Eliquis) 5 mg PO Q12 10/17/23 04/23/24 History cholecalciferol (vitamin D3) 50 2,000 unit PO DAILY 10/17/23 04/23/24 History mcg (2,000 unit) capsule escitalopram oxalate 5 mg tablet 5 mg PO QAM 10/17/23 04/23/24 History furosemide 40 mg tablet 60 mg PO [id number] 10/17/23 04/23/24 History midodrine 5 mg tablet 5 mg PO BID 10/17/23 04/23/24 History oxycodone 5 mg tablet 5 mg PO Q4H PRN pain #30 tabs 05/06/24 Rx Hospital Stay Data Consultations 04/23/24 15:58 ED Decision to Admit Stat 04/23/24 17:19 Consult General Surgery Routine 04/26/24 09:03 Consult Infectious Diseases Routine Procedures Performed Operation Date: 04/25/24 08:20 Actual Procedures p Excisional Debridement of Sacral ulcer down to the bone of 28 sqaure centimeters(Not Applicable) - Dale Caldwell, Diagnostic Imagining Performed 04/23/24 14:18 CT abd pelvis IV con only Stat Pending Results Patient Have Any Pending Studies at Discharge: No Discharge Instructions Given to Patient (Per Discharging Provider) Please follow up in the wound care center upon discharge [address] [place] [id number] # [phone] Total Time Total Time Spent Total Time Spent (In Minutes): More than 35 minutes
== END 2024-05-06 13:57 | DRG 580 ==
LOC: ED 13:59 → SUATTDRO 17:19 → EDINP 17:19 → 3N 19:28 → 3E 05-03 13:21